=== PATIENT | male | born 1930 | race Caucasian/White ===

== ENCOUNTER 2016-08-06 15:31 | Inpatient (IN) | payer MEDICARE ==
[~2016-08-06] VITALS: Ht 172.7 cm; Wt 102.2 kg
[~2016-08-06 15:31] MED LIST: ALLO100T PO; AMLO10TA2 PO; ATOR40TA59 PO; CALC0.5C PO; CARV6.252 PO; CHOL2000 PO; CYAN10005 PO; DABI150C PO; FURO40TA4 PO; GLIM2TAB2 PO; HYDR-2678 PO; INSU100C4 SQ; INSU100I13 SQ; LISI40TA PO; OMEG10006 PO; PRED-220 PO; SEVE800T9 PO; SODI650T PO; SPIR25TA3 PO; TAMS0.4C2 PO; WARF5TAB PO; WARF7.5T PO; [UNRECOGNIZED DRUG - CODE] IJ; iron glycinate
[2016-08-06] MEDS ORDERED: PIP/TAZO PER PHARMACY MC PRN (16:15)
[2016-08-06] MEDS ORDERED: IV NORMAL SALINE 500ML BAG 500 ML IV ONE (16:15)
[2016-08-06] MEDS ORDERED: HYDROCODONE/APAP 5/325MG TABLET. PO ONE (16:15)
[2016-08-06] MEDS ORDERED: ASPIRIN 81 MG TAB.CHEW PO ONE (16:15)
[2016-08-06] MEDS ORDERED: PIPERACILLIN/TAZOBACTAM 2.25 GM in IV NORMAL SALINE 50ML 50 ML IV ONE (16:30)
--- NOTE | 2016-08-06 16:35 | PHYS DOC ---
Past Medical History Past Medical History: A-Fib, Diabetes-Type II, Hypertension, ME, Renal Failure , Other Additional Past Medical Histor: GOUT Past Surgical History: Coronary Bypass Surgery, Tonsillectomy, Other Additional Past Surgical Histo: LEFT HIP REPLACEMENT Alcohol Use: Rarely Drug Use: None Adult General Chief Complaint Chief Complaint: SHORTNESS OF BREATH HPI HPI Patient is a 85 year old male who presents with bilateral lower extremity redness and pain. Patient reports for over the past month he has been having increasing redness and pain in his lower legs. No clear inciting or mitigating factors. He also reports intermittent shortness of breath for the past couple weeks. He denies any chest discomfort. He says he has taken Tylenol PM for the pain with insufficient relief. Patient accompanied by a son who contributes to history. He says they saw Dr. Hester (creative services designer) a few days ago and was told he needed IV antibiotics for at least a few days. 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 Patient is taking some sort of oral antibiotic (cannot recall name) the past couple weeks as well. Review of Systems Review of Systems Constitutional: Denies fever or chills Eyes: Denies change in visual acuity or eye pain HENT: Denies nasal congestion or sore throat Respiratory: Intermittent shortness of breath Cardiovascular: Denies chest pain GI: Denies abdominal pain, nausea, vomiting, bloody stools or diarrhea : Denies dysuria or hematuria Musculoskeletal: BLE redness and pain; intermittent low back ache (none now) Neurologic: Denies headache, focal weakness or sensory changes Current Medications Current Medications Current Medications Medications (Trade) Dose Ordered Sig/Dirk Start Time Stop Time Status Last Admin Dose Admin Acetaminophen/ Hydrocodone Bitart (Lortab 5/325) 2 tab 1X ONCE 08/06/16 16:15 08/06/16 16:17 DC 08/06/16 17:32 2 TAB Aspirin (Children'S Aspirin) 324 mg 1X ONCE 08/06/16 16:15 08/06/16 16:17 DC 08/06/16 17:33 324 MG Piperacillin Sod/ Tazobactam Sod 1 each 1 each PRN DAILY PRN 08/06/16 16:15 UNV Piperacillin Sod/ Tazobactam Sod/ Sodium Chloride (Zosyn/Iv Sodium Chloride 0.9% 50ml) 50 ml @ 100 mls/hr 1X ONCE 08/06/16 16:30 08/06/16 16:59 DC 08/06/16 16:58 100 MLS/HR Sodium Chloride 500 ml @ 500 mls/hr 1X ONCE 08/06/16 16:15 08/06/16 17:14 DC 08/06/16 16:56 500 MLS/HR Vancomycin HCl (Vanco Per Pharmacy) 1 each PRN DAILY PRN 08/06/16 16:15 UNV Vancomycin HCl 2 gm/Sodium Chloride 500 ml @ 250 mls/hr 1X ONCE 08/06/16 17:00 08/06/16 18:59 DC 08/06/16 17:34 250 MLS/HR Allergies Allergies Allergies Coded Allergies Type Severity Reaction Last Updated Verified No Known Medication Allergies Allergy Unknown 01/14/15 Yes Physical Exam Physical Exam Constitutional: Well developed, well nourished, no acute distress, non-toxic appearance HENT: Normocephalic, atraumatic, bilateral external ears normal Eyes: EOMI, conjunctiva normal, no discharge Neck: Normal range of motion, no stridor Cardiovascular: Heart rate normal, regular rhythm, no murmur Lungs & Thorax: Bilateral breath sounds clear to auscultation Abdomen: Bowel sounds normal, soft, non-distended, no TTP; PD catheter in place Skin: Warm, dry, no erythema, no rash Extremities: B/l lower legs with erythema mostly confined to posterior aspect; not significantly warm to touch, but is generally; 1+ b/l DP pulse; motor function and sensation to light touch intact; scar on medial LLE well-healed Neurologic: Alert and oriented X 3, no gross deficits noted Current Patient Data Vital Signs Vital Signs Date Time Temp Pulse Resp B/P Pulse Ox O2 Delivery O2 Flow Rate FiO2 08/06/16 17:32 18 94 Room Air 08/06/16 17:17 78 117/58 08/06/16 15:33 97.4 97.4 Lab Values Laboratory Tests Test 08/06/16 16:50 White Blood Count 9.6x10^3/uL (4.0-11.0) Red Blood Count 3.14x10^6/uL (4.30-5.70) L Hemoglobin 9.9g/dL (13.0-17.5) L Hematocrit 30.3% (39.0-53.0) L Mean Corpuscular Volume 96fL (79-100) Mean Corpuscular Hemoglobin 32pg (25-35) Mean Corpuscular Hemoglobin Concent 33g/dL (31-37) Red Cell Distribution Width 15.0% (11.5-14.5) H Platelet Count 245x10^3/uL (140-400) Neutrophils (%) (Auto) 80% (31-73) H Lymphocytes (%) (Auto) 10% (24-48) L Monocytes (%) (Auto) 6% (0-9) Eosinophils (%) (Auto) 4% (0-3) H Basophils (%) (Auto) 1% (0-3) Neutrophils # (Auto) 7.6x10^3uL (1.8-7.7) Lymphocytes # (Auto) 1.0x10^3/uL (1.0-4.8) Monocytes # (Auto) 0.5x10^3/uL (0.0-1.1) Eosinophils # (Auto) 0.4x10^3/uL (0.0-0.7) Basophils # (Auto) 0.1x10^3/uL (0.0-0.2) Prothrombin Time 31.5SEC (11.7-14.0) H Prothrombin Time INR 3.3 (0.8-1.1) H Sodium Level 138mmol/L (136-145) Potassium Level 4.5mmol/L (3.5-5.1) Chloride Level 95mmol/L (98-107) L Carbon Dioxide Level 31mmol/L (21-32) Anion Gap 12 (6-14) Blood Urea Nitrogen 66mg/dL (8-26) H Creatinine 8.9mg/dL (0.7-1.3) H Estimated GFR (Cockcroft-Gault) 5.7 Glucose Level 456mg/dL (70-99) H Calcium Level 8.8mg/dL (8.5-10.1) Magnesium Level 2.2mg/dL (1.8-2.4) Troponin I Quantitative 0.065ng/mL (0.000-0.055) XC-Rve-O-Type Natriuretic Peptide 70799hw/mL (0-449) H Laboratory Tests 3/16/17 16:50 Laboratory Tests 08/06/16 16:50 EKG EKG EKG (my read): irregular rhythm (Afib), rate 70, LAD, LAFB, TWI lead I/aVL, no acute ST changes Radiology/Procedures Radiology/Procedures CXR: Impression No acute cardiopulmonary findings. Course & Med Decision Making Course & Med Decision Making Pertinent Labs and Imaging studies reviewed. (See chart for details) Patient is 85 year old male who presents with BLE erythema and pain, as well as SOB. 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 Regardless, we will treat for possible cellulitis with IV abx (vanc and zosyn as patient is diabetic). Will check EKG, CXR, labs as well due to c/o SOB. ASA ordered and oral pain meds ordered. EKG and imaging results as above. Labs notable for elevated BNP and minimally elevated troponin (similar to prior); this appears due to renal disease rather that cardiac disease so will not anticoagulate at this time nor will diurese the patient given no significant pulmonary edema on CXR or peripheral edema on exam. Discussed results with patient. Discussed with Dr. Irvin, will admit under his care for further evaluation and treatment. Dragon Disclaimer Dragon Disclaimer This electronic medical record was generated, in whole or in part, using a voice recognition dictation system. Departure Departure Impression: Primary Impression: Leg pain, bilateral Additional Impressions: Erythema of lower extremity SOB (shortness of breath) Disposition: ADMITTED INPATIENT Admitting Physician: Shiva Irvin Condition: STABLE Referrals: CAITLIN STERLING MD (PCP) Problem Qualifiers MANINDER LR MD Aug 06, 2016 16:35
--- NOTE | 2016-08-06 16:43 | RAD ---
Examination: 2 views of the chest History: History of shortness of breath, weakness Impression: 01/20/2016 Findings: Low lung volumes and technique accentuates heart size and pulmonary vasculature. Unchanged median sternotomy wires. There is no acute infiltrate or visualized pneumothorax identified Impression No acute cardiopulmonary findings.
--- NOTE | 2016-08-06 16:47 | EKG ---
[facility] [address] [place] [address] Test Date: 2016-08-06 Test Time: 16:36:40 Pat Name: HAKAN SCOTT Department: Room: Gender: Male Station Superintendent: : [id number] Requested By: MANINDER LR Order Number: [id number] Reading MD: Capri Rodriguez Measurements Intervals Burr Rate: 70 P: WV: QRS: -74 QRSD: 114 T: 126 QT: 426 QTc: 463 Interpretive Statements ATRIAL FIBRILLATION ABNORMAL LEFT AXIS DEVIATION QRS(T) CONTOUR ABNORMALITY CONSISTENT WITH ANTERIOR INFARCT AGE UNDETERMINED ST & T ABNORMALITY, CONSIDER HIGH LATERAL ISCHEMIA OR LEFT VENTRICULAR STRAIN Electronically Signed On 08-08-2016 20:05:52 CDT by Capri Rodriguez
[2016-08-06] MEDS ORDERED: VANCOMYCIN 2 GM in IV NORMAL SALINE 500ML BAG 500 ML IV ONE (17:00)
[2016-08-06 17:17] LABS: BASO # 0.1 x10^3/uL (0.0-0.2); BASO % 1 % (0-3); EOS % 4 % (0-3); HEMATOCRIT 30.3 % (39.0-53.0); HEMOGLOBIN 9.9 g/dL (13.0-17.5); LYMPH % 10 % (24-48); MEAN CORPUSCULAR HEMOGLOBIN 32 pg (25-35); MEAN CORPUSCULAR HGB CONC 33 g/dL (31-37); MEAN CORPUSCULAR VOLUME 96 fL (79-100); MONO % 6 % (0-9); NEUT % 80 % (31-73); PLATELET COUNT 245 x10^3/uL (140-400); RED BLOOD COUNT 3.14 x10^6/uL (4.30-5.70); WHITE BLOOD COUNT 9.6 x10^3/uL (4.0-11.0)
[2016-08-06 17:26] LABS: CALCIUM 8.8 mg/dL (8.5-10.1); CREATININE 8.9 mg/dL (0.7-1.3); GFR 5.7; INR 3.3 (0.8-1.1); MAGNESIUM 2.2 mg/dL (1.8-2.4); POTASSIUM 4.5 mmol/L (3.5-5.1); PROTHROMBIN TIME PATIENT 31.5 SEC (11.7-14.0)
[2016-08-06] MEDS ORDERED: MORPHINE SULFATE 4 MG/ML DISP.SYRIN. IV PRN (18:15)
[2016-08-06] MEDS ORDERED: INSULIN REGULAR 100 UNIT/ML 10ML VIAL. IV ONE (18:15)
[2016-08-06] MEDS ORDERED: DEXTROSE 50% 25 GM / 50ML DISP.SYRIN. IV PRN (18:15)
[2016-08-06] MEDS ORDERED: ACETAMINOPHEN 325 MG TABLET. PO PRN (18:15)
[2016-08-06] MEDS ORDERED: ONDANSETRON PF 4 MG/2 ML VIAL. IV PRN (18:15)
--- NOTE | 2016-08-06 18:27 | ACF ---
Admission Forms Criteria PAIN MANAGEMENT [facility] Clinical Indications for Admission to Inpatient Care (Place 'X' for any and all applicable criteria): Hospital admission is needed for appropriate care of the patient because of ANY ONE of the following are present (1)(2)(3)(4)(5): [X]I. Severe pain requiring acute inpatient management as indicated by ALL of the following (2)(5)(10): [ ]a) Continuous or frequent (eg, every 2 to 4 hours) parenteral analgesics required [A] [X]b) Necessity (ie, alternative approaches not effective) for analgesic regimen that can only be performed or initiated in inpatient setting [ ]II. Pain causing debilitation to the point of inability to function or be supported at any other level of care [ ]III. Severe side effects from pain medications as indicated by ANY ONE of the following (12)(13)(14)(15): [ ]a) Uncontrollable seizures [ ]b) Cardiac arrhythmias [ ]c) Severe volume depletion [ ]d) Vomiting that is uncontrollable at any other level of care [ ]e) Altered mental status (Audrey coma scale score less than 13) [ ]f) Obstipation with inadequate GI function to maintain nutrition [ ]g) Dehydration that is severe or persistent The original [employer] content created by [employer] has been revised. The portions of the content which have been revised are identified through the use of italic text or in bold, and [facility] has neither reviewed nor approved the modified material. All other unmodified content is copyright [employer]. Please see references footnoted in the original [employer] edition 2016 Admission Criteria Met?: Yes BENITA PLATT Aug 06, 2016 18:27
[2016-08-06] MEDS: VANCOMYCIN PER PHARMACY MC PRN (19:54)
[2016-08-06 19:55] VITALS: BP 118/47
[2016-08-06] MEDS ORDERED: CINA30TA PO (20:52)
[2016-08-06 23:00] VITALS: BP 90/44
[2016-08-06] MEDS: GABAPENTIN 100 MG CAPSULE. PO SCH (23:05)
[2016-08-06] MEDS: INSULIN DETEMIR 300 UNITS/3 ML INSULN.PEN. SQ SCH (23:14)
--- NOTE | 2016-08-07 00:28 | HP ---
ADMIT DATE: 08/06/2016 CHIEF COMPLAINT: Right lower extremity pain and scar tissue forming on the skin, shortness of breath. HISTORY OF PRESENT ILLNESS: The patient is a pleasant 85-year-old male who has end-stage renal disease. He is on peritoneal dialysis. He has been doing this for about 18 months. Over the past few weeks, he has been developing right lower extremity pain and skin is beginning to contract. 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 They called me from [facility], we have now transferred the patient to our facility for further evaluation. PAST MEDICAL HISTORY: Diabetes, hypertension, hyperlipidemia, AFib, gout, coronary artery bypass surgery, renal failure, end-stage renal disease on peritoneal dialysis, left hip replacement, tonsillectomy. ALLERGIES: None. FAMILY HISTORY: Hypertension. SOCIAL HISTORY: He does not drink, smoke or take drugs. MEDICATIONS: Reviewed, please refer to the MRAD. REVIEW OF SYSTEMS: GENERAL: No history of weight change, weakness or fevers. SKIN: The patient complains of right lower extremity pain and skin contracture with erythema. EYES: No blurred, double or loss of vision. NOSE AND THROAT: No history of nosebleeds, hoarseness or sore throat. HEART: No history of palpitations, chest pain or shortness of breath on exertion. LUNGS: Denies cough, hemoptysis, wheezing or shortness of breath. GASTROINTESTINAL: Denies changes in appetite, nausea, vomiting, diarrhea or constipation. GENITOURINARY: No history of frequency, urgency, hesitancy or nocturia. NEUROLOGIC: Denies history of numbness, tingling, tremor or weakness. PSYCHIATRIC: No history of panic, anxiety or depression. ENDOCRINE: No history of heat or cold intolerance, polyuria or polydipsia. EXTREMITIES: Denies muscle weakness, joint pain, pain on walking or stiffness. PHYSICAL EXAMINATION: VITAL SIGNS: Temperature afebrile, pulse 79, respirations 20, blood pressure 97/51. GENERAL: He is alert, cooperative. His daughter is present. HEART: Normal S1 and S2. LUNGS: Clear. ABDOMEN: Soft, positive bowel sounds. He does have distention. He states he has got a gallon of fluid in there that he has not drained yet from his peritoneal dialysis catheter. The catheter appears clean. ENDOCRINE: No thyromegaly. LYMPHATICS: No cervical nodes. HEMATOPOIETIC: No bruising. 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 LABORATORY DATA: Pending. ASSESSMENT AND PLAN: Possible calciphylaxis. The patient has been admitted. I have consulted Dr. Elizabeth Schreiber for a biopsy. We will continue his peritoneal dialysis and consult Dr. Tony, frequent labs, continue home medicines. PROGNOSIS: Guarded. CARLOTA BAZAN DO DR: CLINT/raghu JOB#: [id number] / [id number]
[2016-08-07] MEDS: ANTI-COAG MONITOR BY PHARMACY. MC PRN (01:59)
[2016-08-07 03:30] VITALS: BP 92/49
[2016-08-07 07:01] LABS: BASO # 0.1 x10^3/uL (0.0-0.2); BASO % 1 % (0-3); EOS % 6 % (0-3); HEMATOCRIT 26.2 % (39.0-53.0); HEMOGLOBIN 8.8 g/dL (13.0-17.5); LYMPH % 13 % (24-48); MEAN CORPUSCULAR HEMOGLOBIN 32 pg (25-35); MEAN CORPUSCULAR HGB CONC 34 g/dL (31-37); MEAN CORPUSCULAR VOLUME 96 fL (79-100); MONO % 8 % (0-9); NEUT % 73 % (31-73); PLATELET COUNT 204 x10^3/uL (140-400); RED BLOOD COUNT 2.74 x10^6/uL (4.30-5.70); RED CELL DISTRIBUTION WIDTH 14.9 % (11.5-14.5); WHITE BLOOD COUNT 7.9 x10^3/uL (4.0-11.0)
[2016-08-07 07:31] LABS: CALCIUM 8.1 mg/dL (8.5-10.1); CREATININE 9.1 mg/dL (0.7-1.3); GFR 5.5
[2016-08-07 07:59] VITALS: BP 105/48
[2016-08-07] MEDS: FERROUS SULFATE 325 MG TABLET PO SCH (08:00)
[2016-08-07] MEDS ORDERED: CARVEDILOL 6.25 MG TABLET PO SCH (08:00)
[2016-08-07] MEDS: HYDROCODONE/APAP 5/325MG TABLET. PO PRN ×4 (08:10→17:41)
[2016-08-07] MEDS: CINACALCET HCL 30 MG TABLET PO SCH (08:45)
[2016-08-07] MEDS: OMEGA-3 FATTY ACIDS/FISH OIL 1,000 MG CAPSULE. PO SCH (08:45)
[2016-08-07] MEDS: CYANOCOBALAMIN (VITAMIN B-12) 1,000 MCG TABLET. PO SCH (08:47)
[2016-08-07] MEDS: GLIMEPIRIDE 2 MG TABLET PO SCH (08:48)
[2016-08-07] MEDS: CHOLECALCIFEROL (VITAMIN D3) 1,000 UNIT TABLET PO SCH (08:49)
[2016-08-07] MEDS: ALLOPURINOL 100 MG TABLET. PO SCH ×2 (08:51→20:40)
[2016-08-07] MEDS: INSULIN ASPART 300 UNITS/3 ML INSULN.PEN SQ SCH ×6 (08:58→17:37)
[2016-08-07] MEDS ORDERED: APIXABAN 2.5 MG TABLET. PO SCH (09:00)
--- NOTE | 2016-08-07 09:52 | PDOC2 ---
NEAL NIELSEN MAINFRAME PROGRAMMER 08/07/16 0952: CARDIAC CONSULT DATE OF CONSULT Date of Consult DATE: 08/07/16 TIME: 09:39 REASON FOR CONSULT Reason for Consult: SOB Elevated troponin and BNP (dialysis patient) REFERRING PHYSICIAN Referring Physician: Dr. Mcdaniels SOURCE Source: Chart review, Patient HISTORY OF PRESENT ILLNESS HISTORY OF PRESENT ILLNESS This is an 89 yo male who presented with complaints of lower extremity swelling and erythema. Patient reports symptoms have been ongoing for the last month and a half. Developed skin darkening of bilateral calves and areas have become painful to touch. Pain has significantly worsened, limiting his ability to ambulate. Describes pain as "shooting" even when mild touch is applies to affected areas. ? calciphylaxis- biopsy planned. Patient additionally reports mild shortness of breath and orthopnea over the last couple of days. No recent change in diet or recent illness/fevers. Has been less active 2/2 pain. Denies any CP, palpitations, dizziness, diaphoresis, or nausea/vomiting. Reports compliance with medications. H/o CHF, AFIB, CAD s/p CABG (2004), HTN, HLP, and DM- follows closely with Dr. Elder at [facility]. Reports recent echocardiogram (less that 6 months ago) no recent stress test. Additional h/o ESRD on PD since February of 2015- is anuric. Has been complaint with PD. PAST MEDICAL HISTORY Past Medical History Cardiovascular: AFIB, CAD, CHF, HTN, Hyperlipidemia Pulmonary: Other (sleep apnea) CENTRAL NERVOUS SYSTEM: Peripheral neuropathy GI: GERD Heme/Onc: Anemia NOS, Cancer (skin) Hepatobiliary: No pertinent hx Psych: No pertinent hx Musculoskeletal: Osteoarthritis Rheumatologic: Gout Infectious disease: No pertinent hx ENT: No pertinent hx Renal/: ESRD (on PD), Benign prostatic enlarg. Endocrine: Diabetes, hyperparathyroidism Dermatology: No pertinent hx PAST SURGICAL HISTORY Past Surgical History Appendectomy, CABG (2004), Cataract Removal, Tonsillectomy, Other (left hip sx ) FAMILY HISTORY Family History Cancer, Diabetes, Hypertension, Stroke SOCIAL HISTORY Smoke: No ALCOHOL: none Drugs: None Lives: with Family CURRENT MEDICATIONS CURRENT MEDICATIONS Current Medications Medications (Trade) Dose Ordered Sig/Dirk Route PRN Reason Start Time Stop Time Status Last Admin Dose Admin Aspirin (Children'S Aspirin) 324 mg 1X ONCE PO 08/06/16 16:15 08/06/16 16:17 DC 08/06/16 17:33 Acetaminophen/ Hydrocodone Bitart (Lortab 5/325) 2 tab 1X ONCE PO 08/06/16 16:15 08/06/16 16:17 DC 08/06/16 17:32 Vancomycin HCl 1 each 1 each PRN DAILY PRN MC SEE COMMENTS 08/06/16 16:15 08/06/16 19:54 Sodium Chloride 500 ml @ 500 mls/hr 1X ONCE IV 08/06/16 16:15 08/06/16 17:14 DC 08/06/16 16:56 Vancomycin HCl 2 gm/Sodium Chloride 500 ml @ 250 mls/hr 1X ONCE IV 08/06/16 17:00 08/06/16 18:59 DC 08/06/16 17:34 Piperacillin Sod/ Tazobactam Sod/ Sodium Chloride (Zosyn/Iv Sodium Chloride 0.9% 50ml) 50 ml @ 100 mls/hr 1X ONCE IV 08/06/16 16:30 08/06/16 16:59 DC 08/06/16 16:58 Acetaminophen (Tylenol) 650 mg PRN Q4HRS PRN PO FEVER 08/06/16 18:15 08/07/16 18:14 08/07/16 04:02 Insulin Human Regular (Novolin R Vial) 10 unit 1X ONCE IV 08/06/16 18:15 08/06/16 18:29 DC 08/06/16 18:40 Insulin Aspart (Novolog) 0-7 UNITS TIDWMEALS SQ 08/07/16 08:00 08/07/16 09:00 Allopurinol (Zyloprim) 50 mg BID PO 08/07/16 09:00 08/07/16 08:51 Cinacalcet (Sensipar) 30 mg DAILY PO 08/07/16 09:00 08/07/16 08:45 Cyanocobalamin (Vitamin B-12) 5,000 mcg DAILY PO 08/07/16 09:00 08/07/16 08:47 Glimepiride (Amaryl) 4 mg DAILY PO 08/07/16 09:00 08/07/16 08:48 Fish Oil (Fish Oil) 1,000 mg DAILY PO 08/07/16 09:00 08/07/16 08:45 Vitamin D (Vitamin D3) 4,000 unit DAILY PO 08/07/16 09:00 08/07/16 08:49 Insulin Aspart (Novolog) 8 units TIDBFRMEAL SQ 08/07/16 07:30 08/07/16 08:58 Insulin Detemir (Levemir) 50 units QHS SQ 08/06/16 23:00 08/06/16 23:14 Apixaban (Eliquis) 2.5 mg BID PO 08/07/16 09:00 08/07/16 08:51 Info (Anti-Coagulation Monitoring By Pharmacy) 1 each PRN DAILY PRN MC SEE COMMENTS 08/06/16 22:15 08/07/16 01:59 Gabapentin (Neurontin) 100 mg QHS PO 08/06/16 23:00 08/06/16 23:05 ALLERGIES ALLERGIES: Coded Allergies: No Known Medication Allergies (Verified Allergy, Unknown, 01/14/15) ROS Review of System 14 point ROS conducted with pertinent positives noted above in HPI. PHYSICAL EXAM General: Alert, Oriented X3, Cooperative, No acute distress HEENT: Mucous membr. moist/pink Lungs: Clear to auscultation, Other (diminished bases ) Heart: Normal S1, Normal S2, Other (IRR; tele AFIB) Abdomen: Soft, No tenderness Extremities: Normal pulses, Other (trace LE edema ) Skin: Other (erythema with central darkening to bilateral calf and surrounding petechiae) Neuro: Normal speech, Sensation intact Psych/Mental Status: Mental status NL, Mood NL MUSCULOSKELETAL: Osteoarthritic changes both hands VITALS VITALS Vital Signs Date Time Temp Pulse Resp B/P Pulse Ox O2 Delivery O2 Flow Rate FiO2 08/07/16 07:59 97.9 64 18 105/48 95 Room Air 97.9 LABS Lab: Laboratory Tests Test 08/06/16 16:50 08/06/16 20:38 08/07/16 01:00 08/07/16 06:51 White Blood Count 9.6x10^3/uL (4.0-11.0) 7.9x10^3/uL (4.0-11.0) Red Blood Count 3.14x10^6/uL (4.30-5.70) 2.74x10^6/uL (4.30-5.70) Hemoglobin 9.9g/dL (13.0-17.5) 8.8g/dL (13.0-17.5) Hematocrit 30.3% (39.0-53.0) 26.2% (39.0-53.0) Mean Corpuscular Volume 96fL (79-100) 96fL (79-100) Mean Corpuscular Hemoglobin 32pg (25-35) 32pg (25-35) Mean Corpuscular Hemoglobin Concent 33g/dL (31-37) 34g/dL (31-37) Red Cell Distribution Width 15.0% (11.5-14.5) 14.9% (11.5-14.5) Platelet Count 245x10^3/uL (140-400) 204x10^3/uL (140-400) Neutrophils (%) (Auto) 80% (31-73) 73% (31-73) Lymphocytes (%) (Auto) 10% (24-48) 13% (24-48) Monocytes (%) (Auto) 6% (0-9) 8% (0-9) Eosinophils (%) (Auto) 4% (0-3) 6% (0-3) Basophils (%) (Auto) 1% (0-3) 1% (0-3) Neutrophils # (Auto) 7.6x10^3uL (1.8-7.7) 5.8x10^3uL (1.8-7.7) Lymphocytes # (Auto) 1.0x10^3/uL (1.0-4.8) 1.0x10^3/uL (1.0-4.8) Monocytes # (Auto) 0.5x10^3/uL (0.0-1.1) 0.6x10^3/uL (0.0-1.1) Eosinophils # (Auto) 0.4x10^3/uL (0.0-0.7) 0.5x10^3/uL (0.0-0.7) Basophils # (Auto) 0.1x10^3/uL (0.0-0.2) 0.1x10^3/uL (0.0-0.2) Prothrombin Time 31.5SEC (11.7-14.0) Prothromb Time International Ratio 3.3 (0.8-1.1) Sodium Level 138mmol/L (136-145) 138mmol/L (136-145) Potassium Level 4.5mmol/L (3.5-5.1) 4.0mmol/L (3.5-5.1) Chloride Level 95mmol/L (98-107) 100mmol/L (98-107) Carbon Dioxide Level 31mmol/L (21-32) 26mmol/L (21-32) Anion Gap 12 (6-14) 12 (6-14) Blood Urea Nitrogen 66mg/dL (8-26) 70mg/dL (8-26) Creatinine 8.9mg/dL (0.7-1.3) 9.1mg/dL (0.7-1.3) Estimated GFR (Cockcroft-Gault) 5.7 5.5 Glucose Level 456mg/dL (70-99) 227mg/dL (70-99) Calcium Level 8.8mg/dL (8.5-10.1) 8.1mg/dL (8.5-10.1) Magnesium Level 2.2mg/dL (1.8-2.4) Troponin I Quantitative 0.065ng/mL (0.000-0.055) 0.065ng/mL (0.000-0.055) 0.067ng/mL (0.000-0.055) TW-Zhf-[id number]-Type Natriuretic Peptide 60076cq/mL (0-449) Glucose (Fingerstick) 340mg/dL (70-99) Test 08/07/16 07:48 Glucose (Fingerstick) 219mg/dL (70-99) ECHOCARDIOGRAM ECHOCARDIOGRAM <Conclusion> Left ventricle systolic function is moderately impaired. The Ejection Fraction is 40-45%. There is hypokinesis in the basal to mid inferior, inferolateral and inferoseptal bajwa. There is mild global hypokinesis of the left ventricle. Technically difficult study DATE: 12/13/15 3742 ASSESSMENT/PLAN ASSESSMENT/PLAN 1. Elevated troponin 2. Mild acute on chronic systolic HF 3. H/o CAD 4. Chronic AFIB 5. Hypertension 6. Hyperlipidemia 7. Diabetes, II, uncontrolled 8. ESRD on PD 9. ? cellulitis versus calciphylaxis- Bx planned Recommendations Obtain cardiac records from Dr. Elder. Anuric- adjusting dialysate for increase UF per nephrology Mild troponin elevation likely type II, demand ischemia related to CRF Chronic AFIB with rate control- on Eliquis for stroke prophylaxis Decrease Coreg to 3.125mg Supportive care from CV perspective. Problems: REINALDO DODSON MD 08/07/16 1649: CARDIAC CONSULT ALLERGIES ALLERGIES: Coded Allergies: No Known Medication Allergies (Verified Allergy, Unknown, 01/14/15) ASSESSMENT/PLAN ASSESSMENT/PLAN Pt. seen and examined. Agree with above [facility] [employer] MICA note. 85 y.o male presenting mostly for lower ext edema. No real dyspnea. 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 Ok to hold anticoagulation prn. Echo EF wnl Supportive care. Will follow peripherally Thanks for consult. Low risk for biopsy. Problems: NEAL NIELSEN APRN Aug 07, 2016 09:52 REINALDO DODSON MD Aug 07, 2016 16:49
[2016-08-07] MEDS: PIPERACILLIN/TAZOBACTAM 2.25 GM in IV NORMAL SALINE 50ML 50 ML IV SCH ×2 (10:13→20:41)
[2016-08-07 10:41] VITALS: BP 98/44
--- NOTE | 2016-08-07 11:43 | PDOC2 ---
CONSULT Date of Consult Date of Consult DATE: 08/07/16 TIME: 11:38 Reason for Consult Reason for Consult: ESRD Referring Physician Referring Physician: HORTENSIA Identification/Chief Complaint Chief Complaint LE PAIN Source Source: Chart review, Patient History of Present Illness Reason for Visit: THIS IS AN 85 YR OLD ADMITTED WITH BILATERAL CALF AREA REDNESS AND PAIN. IT IS CONCERNING FOR CELLULITIS BUT ALSO CONCERNING FOR CALCIPHYLAXIS. HE HAS ESRD AND IS ON OP PD IN [place]. HE ALSO STATES THAT HE FEELS SOME SOB. CXRAY WAS WNL. LABS ARE C/W ESRD Past Medical History Cardiovascular: AFIB, CAD, HTN, [place], Hyperlipidemia Pulmonary: No pertinent hx CENTRAL NERVOUS SYSTEM: Other GI: No pertinent hx Heme/Onc: Anemia NOS Hepatobiliary: No pertinent hx Psych: No pertinent hx Musculoskeletal: Osteoarthritis Rheumatologic: No pertinent hx Infectious disease: No pertinent hx Renal/: Chronic renal failure Endocrine: Diabetes, Hyperparathyroidism Past Surgical History Past Surgical History: CABG, Cataract Removal, Total hip replacement, Tonsillectomy Family History Family History: Cancer, Diabetes, Hypertension, Stroke Social History ALCOHOL: none Drugs: None Lives: with Family Domestic Violence: Neg Current Problem List Problem List Problems Medical Problems: (1) Erythema of lower extremity Status: Acute (2) Leg pain, bilateral Status: Acute (3) SOB (shortness of breath) Status: Acute Current Medications Current Medications Current Medications Aspirin (Children'S Aspirin) 324 mg 1X ONCE PO Last administered on 08/06/16 17:33; Start 08/06/16 at 16:15; Stop 08/06/16 at 16:17; Status DC Acetaminophen/ Hydrocodone Bitart (Lortab 5/325) 2 tab 1X ONCE PO Last administered on 08/06/16 17:32; Start 08/06/16 at 16:15; Stop 08/06/16 at 16:17 ; Status DC Vancomycin HCl (Vanco Per Pharmacy) 1 each PRN DAILY PRN MC SEE COMMENTS Last administered on 08/06/16 19:54; Start 08/06/16 at 16:15 Piperacillin Sod/ Tazobactam Sod 1 each 1 each PRN DAILY PRN MC SEE COMMENTS; Start 08/06/16 at 16:15 Sodium Chloride 500 ml @ 500 mls/hr 1X ONCE IV Last administered on 16:56; Start 08/06/16 at 16:15; Stop 08/06/16 at 17:14; Status DC Vancomycin HCl 2 gm/Sodium Chloride 500 ml @ 250 mls/hr 1X ONCE IV Last administered on 08/06/16 17:34; Start 08/06/16 at 17:00; Stop 08/06/16 at 18:59 ; Status DC Piperacillin Sod/ Tazobactam Sod/ Sodium Chloride (Zosyn/Iv Sodium Chloride 0.9 % 50ml) 50 ml @ 100 mls/hr 1X ONCE IV Last administered on 08/06/16 16:58; Start 08/06/16 at 16:30; Stop 08/06/16 at 16:59; Status DC Ondansetron HCl (Zofran) 4 mg PRN Q8HRS PRN IV NAUSEA/VOMITING; Start 08/06/16 at 18:15; Stop 08/07/16 at 18:14 Morphine Sulfate 4 mg PRN Q2HR PRN IV PAIN; Start 08/06/16 at 18:15; Stop 08/07 at 18:14 Acetaminophen (Tylenol) 650 mg PRN Q4HRS PRN PO FEVER Last administered on 08/07 04:02; Start 08/06/16 at 18:15; Stop 08/07/16 at 18:14 Insulin Human Regular (Novolin R Vial) 10 unit 1X ONCE IV Last administered on 08/06/16 18:40; Start 08/06/16 at 18:15; Stop 08/06/16 at 18:29; Status DC Insulin Aspart (Novolog) 0-7 UNITS TIDWMEALS SQ Last administered on 08/07/16 09:00; Start 08/07/16 at 08:00 Dextrose 12.5 gm 12.5 gm PRN Q15MIN PRN IV SEE COMMENTS; Start 08/06/16 at 18: 15 Piperacillin Sod/ Tazobactam Sod/ Sodium Chloride (Zosyn/Iv Sodium Chloride 0.9 % 50ml) 50 ml @ 100 mls/hr Q12HR IV Last administered on 08/07/16 10:13; Start 08/07/16 at 09:00 Vancomycin HCl 1 each 1X ONCE MC ; Start 08/08/16 at 15:00; Stop 08/08/16 at 15 :01 Allopurinol (Zyloprim) 50 mg BID PO Last administered on 08/07/16 08:51; Start 08/07/16 at 09:00 Atorvastatin Calcium (Lipitor) 40 mg QHS PO ; Start 08/07/16 at 21:00 Carvedilol (Coreg) 6.26 mg BIDWMEALS PO ; Start 08/07/16 at 08:00 Cinacalcet (Sensipar) 30 mg DAILY PO Last administered on 08/07/16 08:45; Start 08/07/16 at 09:00 Cyanocobalamin (Vitamin B-12) 5,000 mcg DAILY PO Last administered on 08:47; Start 08/07/16 at 09:00 Glimepiride (Amaryl) 4 mg DAILY PO Last administered on 08/07/16 08:48; Start 08/07/16 at 09:00 Fish Oil (Fish Oil) 1,000 mg DAILY PO Last administered on 08/07/16 08:45; Start 08/07/16 at 09:00 Vitamin D (Vitamin D3) 4,000 unit DAILY PO Last administered on 08/07/16 08:49 ; Start 08/07/16 at 09:00 Insulin Aspart (Novolog) 8 units TIDBFRMEAL SQ Last administered on 08/07/16 08:58; Start 08/07/16 at 07:30 Insulin Detemir (Levemir) 50 units QHS SQ Last administered on 08/06/16 23:14 ; Start 08/06/16 at 23:00 Ferrous Sulfate (Feosol) 325 mg DAILYWBKFT PO ; Start 08/07/16 at 08:00 Apixaban (Eliquis) 2.5 mg BID PO Last administered on 08/07/16 08:51; Start at 09:00 Info (Anti-Coagulation Monitoring By Pharmacy) 1 each PRN DAILY PRN MC SEE COMMENTS Last administered on 08/07/16 01:59; Start 08/06/16 at 22:15 Gabapentin (Neurontin) 100 mg QHS PO Last administered on 08/06/16 23:05; Start 08/06/16 at 23:00 Acetaminophen/ Hydrocodone Bitart (Lortab 5/325) 2 tab PRN Q4HRS PRN PO PAIN; Start 08/07/16 at 07:45 Active Scripts Active Reported Sensipar (Cinacalcet Hcl) 30 Mg Tablet 1 Tab PO DAILY Allopurinol 100 Mg Tablet 50 Mg PO BID Glimepiride 2 Mg Tablet 4 Mg PO DAILY Procrit (Epoetin Lasha) 2,000 Unit/1 Ml Vial 0 IJ [id number] Novolog (Insulin Aspart) 100 Unit/1 Ml Cartridge 8 Unit SQ TIDAC Lantus Solostar (Insulin Glargine,Hum.rec.anlog) 100 Unit/1 Ml Insuln.pen 50 Unit SQ QHS Atorvastatin Calcium 40 Mg Tablet 1 Tab PO DAILY Pv Fish Oil 1,000 Mg Softgel ([place]-3 Fatty Acids/Vitamin E) 1,000 Mg Capsule 1 Cap PO DAILY [iron glycinate] 28 Mg DAILY Vitamin B-12 (Cyanocobalamin (Vitamin B-12)) 1,000 Mcg Tablet 5,000 Mcg PO DAILY Vitamin D (Cholecalciferol (Vitamin D3)) 2,000 Unit Capsule 4,000 Unit PO DAILY Carvedilol 6.25 Mg Tablet 1 Tab PO BID Allergies Allergies: Coded Allergies: No Known Medication Allergies (Verified Allergy, Unknown, 01/14/15) ROS General: YES: Appetite, Fatigue PSYCHOLOGICAL ROS: YES: Anxiety Eyes: Yes Decreased vision HEENT: YES: Heacaches Genitourinary: YES Other (OLIGURIA) Musculoskeletal: Yes Muscular Weakness, Yes Other (LE PAIN) Neurological: Yes Weakness Skin: Yes Dry Skin Physical Exam General: Alert, Oriented X3, Cooperative, No acute distress HEENT: Atraumatic, PERRLA Lungs: Clear to auscultation, Normal air movement Heart: Regular rate, Normal S1, Normal S2 Abdomen: Normal bowel sounds, No tenderness Neuro: Normal speech, Cranial nerves 3-12 NL Psych/Mental Status: Mental status NL, Mood NL MUSCULOSKELETAL: No deformity Vitals VITALS Vital Signs Date Time Temp Pulse Resp B/P Pulse Ox O2 Delivery O2 Flow Rate FiO2 08/07/16 10:41 97.5 65 19 98/44 96 Room Air 97.5 Labs Labs Laboratory Tests Test 08/06/16 16:50 08/06/16 20:38 08/07/16 01:00 08/07/16 06:51 White Blood Count 9.6x10^3/uL (4.0-11.0) 7.9x10^3/uL (4.0-11.0) Red Blood Count 3.14x10^6/uL (4.30-5.70) 2.74x10^6/uL (4.30-5.70) Hemoglobin 9.9g/dL (13.0-17.5) 8.8g/dL (13.0-17.5) Hematocrit 30.3% (39.0-53.0) 26.2% (39.0-53.0) Mean Corpuscular Volume 96fL (79-100) 96fL (79-100) Mean Corpuscular Hemoglobin 32pg (25-35) 32pg (25-35) Mean Corpuscular Hemoglobin Concent 33g/dL (31-37) 34g/dL (31-37) Red Cell Distribution Width 15.0% (11.5-14.5) 14.9% (11.5-14.5) Platelet Count 245x10^3/uL (140-400) 204x10^3/uL (140-400) Neutrophils (%) (Auto) 80% (31-73) 73% (31-73) Lymphocytes (%) (Auto) 10% (24-48) 13% (24-48) Monocytes (%) (Auto) 6% (0-9) 8% (0-9) Eosinophils (%) (Auto) 4% (0-3) 6% (0-3) Basophils (%) (Auto) 1% (0-3) 1% (0-3) Neutrophils # (Auto) 7.6x10^3uL (1.8-7.7) 5.8x10^3uL (1.8-7.7) Lymphocytes # (Auto) 1.0x10^3/uL (1.0-4.8) 1.0x10^3/uL (1.0-4.8) Monocytes # (Auto) 0.5x10^3/uL (0.0-1.1) 0.6x10^3/uL (0.0-1.1) Eosinophils # (Auto) 0.4x10^3/uL (0.0-0.7) 0.5x10^3/uL (0.0-0.7) Basophils # (Auto) 0.1x10^3/uL (0.0-0.2) 0.1x10^3/uL (0.0-0.2) Prothrombin Time 31.5SEC (11.7-14.0) Prothromb Time International Ratio 3.3 (0.8-1.1) Sodium Level 138mmol/L (136-145) 138mmol/L (136-145) Potassium Level 4.5mmol/L (3.5-5.1) 4.0mmol/L (3.5-5.1) Chloride Level 95mmol/L (98-107) 100mmol/L (98-107) Carbon Dioxide Level 31mmol/L (21-32) 26mmol/L (21-32) Anion Gap 12 (6-14) 12 (6-14) Blood Urea Nitrogen 66mg/dL (8-26) 70mg/dL (8-26) Creatinine 8.9mg/dL (0.7-1.3) 9.1mg/dL (0.7-1.3) Estimated GFR (Cockcroft-Gault) 5.7 5.5 Glucose Level 456mg/dL (70-99) 227mg/dL (70-99) Calcium Level 8.8mg/dL (8.5-10.1) 8.1mg/dL (8.5-10.1) Magnesium Level 2.2mg/dL (1.8-2.4) Troponin I Quantitative 0.065ng/mL (0.000-0.055) 0.065ng/mL (0.000-0.055) 0.067ng/mL (0.000-0.055) VQ-Ufl-F-Type Natriuretic Peptide 61257ud/mL (0-449) Glucose (Fingerstick) 340mg/dL (70-99) Test 08/07/16 07:48 08/07/16 11:25 Glucose (Fingerstick) 219mg/dL (70-99) 160mg/dL (70-99) Laboratory Tests Test 08/06/16 16:50 08/06/16 20:38 08/07/16 01:00 08/07/16 06:51 White Blood Count 9.6x10^3/uL (4.0-11.0) 7.9x10^3/uL (4.0-11.0) Red Blood Count 3.14x10^6/uL (4.30-5.70) 2.74x10^6/uL (4.30-5.70) Hemoglobin 9.9g/dL (13.0-17.5) 8.8g/dL (13.0-17.5) Hematocrit 30.3% (39.0-53.0) 26.2% (39.0-53.0) Mean Corpuscular Volume 96fL (79-100) 96fL (79-100) Mean Corpuscular Hemoglobin 32pg (25-35) 32pg (25-35) Mean Corpuscular Hemoglobin Concent 33g/dL (31-37) 34g/dL (31-37) Red Cell Distribution Width 15.0% (11.5-14.5) 14.9% (11.5-14.5) Platelet Count 245x10^3/uL (140-400) 204x10^3/uL (140-400) Neutrophils (%) (Auto) 80% (31-73) 73% (31-73) Lymphocytes (%) (Auto) 10% (24-48) 13% (24-48) Monocytes (%) (Auto) 6% (0-9) 8% (0-9) Eosinophils (%) (Auto) 4% (0-3) 6% (0-3) Basophils (%) (Auto) 1% (0-3) 1% (0-3) Neutrophils # (Auto) 7.6x10^3uL (1.8-7.7) 5.8x10^3uL (1.8-7.7) Lymphocytes # (Auto) 1.0x10^3/uL (1.0-4.8) 1.0x10^3/uL (1.0-4.8) Monocytes # (Auto) 0.5x10^3/uL (0.0-1.1) 0.6x10^3/uL (0.0-1.1) Eosinophils # (Auto) 0.4x10^3/uL (0.0-0.7) 0.5x10^3/uL (0.0-0.7) Basophils # (Auto) 0.1x10^3/uL (0.0-0.2) 0.1x10^3/uL (0.0-0.2) Prothrombin Time 31.5SEC (11.7-14.0) Prothromb Time International Ratio 3.3 (0.8-1.1) Sodium Level 138mmol/L (136-145) 138mmol/L (136-145) Potassium Level 4.5mmol/L (3.5-5.1) 4.0mmol/L (3.5-5.1) Chloride Level 95mmol/L (98-107) 100mmol/L (98-107) Carbon Dioxide Level 31mmol/L (21-32) 26mmol/L (21-32) Anion Gap 12 (6-14) 12 (6-14) Blood Urea Nitrogen 66mg/dL (8-26) 70mg/dL (8-26) Creatinine 8.9mg/dL (0.7-1.3) 9.1mg/dL (0.7-1.3) Estimated GFR (Cockcroft-Gault) 5.7 5.5 Glucose Level 456mg/dL (70-99) 227mg/dL (70-99) Calcium Level 8.8mg/dL (8.5-10.1) 8.1mg/dL (8.5-10.1) Magnesium Level 2.2mg/dL (1.8-2.4) Troponin I Quantitative 0.065ng/mL (0.000-0.055) 0.065ng/mL (0.000-0.055) 0.067ng/mL (0.000-0.055) NV-Zog-C-Type Natriuretic Peptide 93637sf/mL (0-449) Glucose (Fingerstick) 340mg/dL (70-99) Test 08/07/16 07:48 08/07/16 11:25 Glucose (Fingerstick) 219mg/dL (70-99) 160mg/dL (70-99) Assessment/Plan Assessment/Plan IMP BILATERAL LE CALF AREA CELLULITIS 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
--- NOTE | 2016-08-07 12:52 | PDOC ---
PROGRESS NOTES Chief Complaint Chief Complaint cc: BLE pain A/P 1. ? 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 Avoid IV narcotics, d/w family at bedside, 2. Chronic systolic HF: stable. 3. H/o CAD 4. Chronic AFIB 5. Hypertension: Low BP, Decreasing dose - coreg. 6. Hyperlipidemia 7. Diabetes, II, uncontrolled: SSI, 8. 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 Mild elevation of troponins: likely due to ESRD, monitor, cardiology bas been following, obtain records from [facility]. Vitals Vitals Vital Signs Date Time Temp Pulse Resp B/P Pulse Ox O2 Delivery O2 Flow Rate FiO2 08/07/16 11:52 18 96 Room Air 08/07/16 10:41 97.5 65 98/44 97.5 Physical Exam General: Alert, Oriented X3, Cooperative, No acute distress Heart: Normal S1, Normal S2, Other (IRR; tele AFIB) Lungs: Clear Abdomen: Soft, No tenderness Extremities: Normal pulses, Other (trace LE edema ) Skin: Other (erythema with central darkening to bilateral calf and surrounding petechiae) Labs LABS Laboratory Tests Test 08/06/16 16:50 08/06/16 20:38 08/07/16 01:00 08/07/16 06:51 White Blood Count 9.6x10^3/uL (4.0-11.0) 7.9x10^3/uL (4.0-11.0) Red Blood Count 3.14x10^6/uL (4.30-5.70) 2.74x10^6/uL (4.30-5.70) Hemoglobin 9.9g/dL (13.0-17.5) 8.8g/dL (13.0-17.5) Hematocrit 30.3% (39.0-53.0) 26.2% (39.0-53.0) Mean Corpuscular Volume 96fL (79-100) 96fL (79-100) Mean Corpuscular Hemoglobin 32pg (25-35) 32pg (25-35) Mean Corpuscular Hemoglobin Concent 33g/dL (31-37) 34g/dL (31-37) Red Cell Distribution Width 15.0% (11.5-14.5) 14.9% (11.5-14.5) Platelet Count 245x10^3/uL (140-400) 204x10^3/uL (140-400) Neutrophils (%) (Auto) 80% (31-73) 73% (31-73) Lymphocytes (%) (Auto) 10% (24-48) 13% (24-48) Monocytes (%) (Auto) 6% (0-9) 8% (0-9) Eosinophils (%) (Auto) 4% (0-3) 6% (0-3) Basophils (%) (Auto) 1% (0-3) 1% (0-3) Neutrophils # (Auto) 7.6x10^3uL (1.8-7.7) 5.8x10^3uL (1.8-7.7) Lymphocytes # (Auto) 1.0x10^3/uL (1.0-4.8) 1.0x10^3/uL (1.0-4.8) Monocytes # (Auto) 0.5x10^3/uL (0.0-1.1) 0.6x10^3/uL (0.0-1.1) Eosinophils # (Auto) 0.4x10^3/uL (0.0-0.7) 0.5x10^3/uL (0.0-0.7) Basophils # (Auto) 0.1x10^3/uL (0.0-0.2) 0.1x10^3/uL (0.0-0.2) Prothrombin Time 31.5SEC (11.7-14.0) Prothromb Time International Ratio 3.3 (0.8-1.1) Sodium Level 138mmol/L (136-145) 138mmol/L (136-145) Potassium Level 4.5mmol/L (3.5-5.1) 4.0mmol/L (3.5-5.1) Chloride Level 95mmol/L (98-107) 100mmol/L (98-107) Carbon Dioxide Level 31mmol/L (21-32) 26mmol/L (21-32) Anion Gap 12 (6-14) 12 (6-14) Blood Urea Nitrogen 66mg/dL (8-26) 70mg/dL (8-26) Creatinine 8.9mg/dL (0.7-1.3) 9.1mg/dL (0.7-1.3) Estimated GFR (Cockcroft-Gault) 5.7 5.5 Glucose Level 456mg/dL (70-99) 227mg/dL (70-99) Calcium Level 8.8mg/dL (8.5-10.1) 8.1mg/dL (8.5-10.1) Magnesium Level 2.2mg/dL (1.8-2.4) Troponin I Quantitative 0.065ng/mL (0.000-0.055) 0.065ng/mL (0.000-0.055) 0.067ng/mL (0.000-0.055) YR-Iap-W-Type Natriuretic Peptide 45704jl/mL (0-449) Glucose (Fingerstick) 340mg/dL (70-99) Test 08/07/16 07:48 08/07/16 11:25 Glucose (Fingerstick) 219mg/dL (70-99) 160mg/dL (70-99) Assessment and Plan Assessmemt and Plan Problems Medical Problems: (1) Erythema of lower extremity Status: Acute (2) Leg pain, bilateral Status: Acute (3) SOB (shortness of breath) Status: Acute Problems: Comment Review of Relevant I have reviewed the following items robert (where applicable) has been applied. Labs Laboratory Tests Test 08/06/16 16:50 08/06/16 20:38 08/07/16 01:00 08/07/16 06:51 White Blood Count 9.6x10^3/uL (4.0-11.0) 7.9x10^3/uL (4.0-11.0) Red Blood Count 3.14x10^6/uL (4.30-5.70) 2.74x10^6/uL (4.30-5.70) Hemoglobin 9.9g/dL (13.0-17.5) 8.8g/dL (13.0-17.5) Hematocrit 30.3% (39.0-53.0) 26.2% (39.0-53.0) Mean Corpuscular Volume 96fL (79-100) 96fL (79-100) Mean Corpuscular Hemoglobin 32pg (25-35) 32pg (25-35) Mean Corpuscular Hemoglobin Concent 33g/dL (31-37) 34g/dL (31-37) Red Cell Distribution Width 15.0% (11.5-14.5) 14.9% (11.5-14.5) Platelet Count 245x10^3/uL (140-400) 204x10^3/uL (140-400) Neutrophils (%) (Auto) 80% (31-73) 73% (31-73) Lymphocytes (%) (Auto) 10% (24-48) 13% (24-48) Monocytes (%) (Auto) 6% (0-9) 8% (0-9) Eosinophils (%) (Auto) 4% (0-3) 6% (0-3) Basophils (%) (Auto) 1% (0-3) 1% (0-3) Neutrophils # (Auto) 7.6x10^3uL (1.8-7.7) 5.8x10^3uL (1.8-7.7) Lymphocytes # (Auto) 1.0x10^3/uL (1.0-4.8) 1.0x10^3/uL (1.0-4.8) Monocytes # (Auto) 0.5x10^3/uL (0.0-1.1) 0.6x10^3/uL (0.0-1.1) Eosinophils # (Auto) 0.4x10^3/uL (0.0-0.7) 0.5x10^3/uL (0.0-0.7) Basophils # (Auto) 0.1x10^3/uL (0.0-0.2) 0.1x10^3/uL (0.0-0.2) Prothrombin Time 31.5SEC (11.7-14.0) Prothromb Time International Ratio 3.3 (0.8-1.1) Sodium Level 138mmol/L (136-145) 138mmol/L (136-145) Potassium Level 4.5mmol/L (3.5-5.1) 4.0mmol/L (3.5-5.1) Chloride Level 95mmol/L (98-107) 100mmol/L (98-107) Carbon Dioxide Level 31mmol/L (21-32) 26mmol/L (21-32) Anion Gap 12 (6-14) 12 (6-14) Blood Urea Nitrogen 66mg/dL (8-26) 70mg/dL (8-26) Creatinine 8.9mg/dL (0.7-1.3) 9.1mg/dL (0.7-1.3) Estimated GFR (Cockcroft-Gault) 5.7 5.5 Glucose Level 456mg/dL (70-99) 227mg/dL (70-99) Calcium Level 8.8mg/dL (8.5-10.1) 8.1mg/dL (8.5-10.1) Magnesium Level 2.2mg/dL (1.8-2.4) Troponin I Quantitative 0.065ng/mL (0.000-0.055) 0.065ng/mL (0.000-0.055) 0.067ng/mL (0.000-0.055) RW-Zja-N-Type Natriuretic Peptide 23201tu/mL (0-449) Glucose (Fingerstick) 340mg/dL (70-99) Test 08/07/16 07:48 08/07/16 11:25 Glucose (Fingerstick) 219mg/dL (70-99) 160mg/dL (70-99) Laboratory Tests Test 08/06/16 16:50 08/06/16 20:38 08/07/16 01:00 08/07/16 06:51 White Blood Count 9.6x10^3/uL (4.0-11.0) 7.9x10^3/uL (4.0-11.0) Red Blood Count 3.14x10^6/uL (4.30-5.70) 2.74x10^6/uL (4.30-5.70) Hemoglobin 9.9g/dL (13.0-17.5) 8.8g/dL (13.0-17.5) Hematocrit 30.3% (39.0-53.0) 26.2% (39.0-53.0) Mean Corpuscular Volume 96fL (79-100) 96fL (79-100) Mean Corpuscular Hemoglobin 32pg (25-35) 32pg (25-35) Mean Corpuscular Hemoglobin Concent 33g/dL (31-37) 34g/dL (31-37) Red Cell Distribution Width 15.0% (11.5-14.5) 14.9% (11.5-14.5) Platelet Count 245x10^3/uL (140-400) 204x10^3/uL (140-400) Neutrophils (%) (Auto) 80% (31-73) 73% (31-73) Lymphocytes (%) (Auto) 10% (24-48) 13% (24-48) Monocytes (%) (Auto) 6% (0-9) 8% (0-9) Eosinophils (%) (Auto) 4% (0-3) 6% (0-3) Basophils (%) (Auto) 1% (0-3) 1% (0-3) Neutrophils # (Auto) 7.6x10^3uL (1.8-7.7) 5.8x10^3uL (1.8-7.7) Lymphocytes # (Auto) 1.0x10^3/uL (1.0-4.8) 1.0x10^3/uL (1.0-4.8) Monocytes # (Auto) 0.5x10^3/uL (0.0-1.1) 0.6x10^3/uL (0.0-1.1) Eosinophils # (Auto) 0.4x10^3/uL (0.0-0.7) 0.5x10^3/uL (0.0-0.7) Basophils # (Auto) 0.1x10^3/uL (0.0-0.2) 0.1x10^3/uL (0.0-0.2) Prothrombin Time 31.5SEC (11.7-14.0) Prothromb Time International Ratio 3.3 (0.8-1.1) Sodium Level 138mmol/L (136-145) 138mmol/L (136-145) Potassium Level 4.5mmol/L (3.5-5.1) 4.0mmol/L (3.5-5.1) Chloride Level 95mmol/L (98-107) 100mmol/L (98-107) Carbon Dioxide Level 31mmol/L (21-32) 26mmol/L (21-32) Anion Gap 12 (6-14) 12 (6-14) Blood Urea Nitrogen 66mg/dL (8-26) 70mg/dL (8-26) Creatinine 8.9mg/dL (0.7-1.3) 9.1mg/dL (0.7-1.3) Estimated GFR (Cockcroft-Gault) 5.7 5.5 Glucose Level 456mg/dL (70-99) 227mg/dL (70-99) Calcium Level 8.8mg/dL (8.5-10.1) 8.1mg/dL (8.5-10.1) Magnesium Level 2.2mg/dL (1.8-2.4) Troponin I Quantitative 0.065ng/mL (0.000-0.055) 0.065ng/mL (0.000-0.055) 0.067ng/mL (0.000-0.055) XQ-Qgs-L-Type Natriuretic Peptide 49962cc/mL (0-449) Glucose (Fingerstick) 340mg/dL (70-99) Test 08/07/16 07:48 08/07/16 11:25 Glucose (Fingerstick) 219mg/dL (70-99) 160mg/dL (70-99) Medications Current Medications Aspirin (Children'S Aspirin) 324 mg 1X ONCE PO Last administered on 08/06/16 17:33; Start 08/06/16 at 16:15; Stop 08/06/16 at 16:17; Status DC Acetaminophen/ Hydrocodone Bitart (Lortab 5/325) 2 tab 1X ONCE PO Last administered on 08/06/16 17:32; Start 08/06/16 at 16:15; Stop 08/06/16 at 16:17 ; Status DC Vancomycin HCl (Vanco Per Pharmacy) 1 each PRN DAILY PRN MC SEE COMMENTS Last administered on 08/06/16 19:54; Start 08/06/16 at 16:15 Piperacillin Sod/ Tazobactam Sod 1 each 1 each PRN DAILY PRN MC SEE COMMENTS; Start 08/06/16 at 16:15 Sodium Chloride 500 ml @ 500 mls/hr 1X ONCE IV Last administered on 16:56; Start 08/06/16 at 16:15; Stop 08/06/16 at 17:14; Status DC Vancomycin HCl 2 gm/Sodium Chloride 500 ml @ 250 mls/hr 1X ONCE IV Last administered on 08/06/16 17:34; Start 08/06/16 at 17:00; Stop 08/06/16 at 18:59 ; Status DC Piperacillin Sod/ Tazobactam Sod/ Sodium Chloride (Zosyn/Iv Sodium Chloride 0.9 % 50ml) 50 ml @ 100 mls/hr 1X ONCE IV Last administered on 08/06/16 16:58; Start 08/06/16 at 16:30; Stop 08/06/16 at 16:59; Status DC Ondansetron HCl (Zofran) 4 mg PRN Q8HRS PRN IV NAUSEA/VOMITING; Start 08/06/16 at 18:15; Stop 08/07/16 at 18:14 Morphine Sulfate 4 mg PRN Q2HR PRN IV PAIN; Start 08/06/16 at 18:15; Stop 08/07 at 18:14 Acetaminophen (Tylenol) 650 mg PRN Q4HRS PRN PO FEVER Last administered on 08/07 04:02; Start 08/06/16 at 18:15; Stop 08/07/16 at 18:14 Insulin Human Regular (Novolin R Vial) 10 unit 1X ONCE IV Last administered on 08/06/16 18:40; Start 08/06/16 at 18:15; Stop 08/06/16 at 18:29; Status DC Insulin Aspart (Novolog) 0-7 UNITS TIDWMEALS SQ Last administered on 08/07/16 09:00; Start 08/07/16 at 08:00 Dextrose 12.5 gm 12.5 gm PRN Q15MIN PRN IV SEE COMMENTS; Start 08/06/16 at 18: 15 Piperacillin Sod/ Tazobactam Sod/ Sodium Chloride (Zosyn/Iv Sodium Chloride 0.9 % 50ml) 50 ml @ 100 mls/hr Q12HR IV Last administered on 08/07/16 10:13; Start 08/07/16 at 09:00 Vancomycin HCl 1 each 1X ONCE MC ; Start 08/08/16 at 15:00; Stop 08/08/16 at 15 :01 Allopurinol (Zyloprim) 50 mg BID PO Last administered on 08/07/16 08:51; Start 08/07/16 at 09:00 Atorvastatin Calcium (Lipitor) 40 mg QHS PO ; Start 08/07/16 at 21:00 Carvedilol (Coreg) 6.26 mg BIDWMEALS PO ; Start 08/07/16 at 08:00; Stop at 12:04; Status DC Cinacalcet (Sensipar) 30 mg DAILY PO Last administered on 08/07/16 08:45; Start 08/07/16 at 09:00 Cyanocobalamin (Vitamin B-12) 5,000 mcg DAILY PO Last administered on 08:47; Start 08/07/16 at 09:00 Glimepiride (Amaryl) 4 mg DAILY PO Last administered on 08/07/16 08:48; Start 08/07/16 at 09:00 Fish Oil (Fish Oil) 1,000 mg DAILY PO Last administered on 08/07/16 08:45; Start 08/07/16 at 09:00 Vitamin D (Vitamin D3) 4,000 unit DAILY PO Last administered on 08/07/16 08:49 ; Start 08/07/16 at 09:00 Insulin Aspart (Novolog) 8 units TIDBFRMEAL SQ Last administered on 08/07/16 08:58; Start 08/07/16 at 07:30 Insulin Detemir (Levemir) 50 units QHS SQ Last administered on 08/06/16 23:14 ; Start 08/06/16 at 23:00 Ferrous Sulfate (Feosol) 325 mg DAILYWBKFT PO ; Start 08/07/16 at 08:00 Apixaban (Eliquis) 2.5 mg BID PO Last administered on 08/07/16 08:51; Start at 09:00 Info (Anti-Coagulation Monitoring By Pharmacy) 1 each PRN DAILY PRN MC SEE COMMENTS Last administered on 08/07/16 01:59; Start 08/06/16 at 22:15 Gabapentin (Neurontin) 100 mg QHS PO Last administered on 08/06/16 23:05; Start 08/06/16 at 23:00 Acetaminophen/ Hydrocodone Bitart (Lortab 5/325) 2 tab PRN Q4HRS PRN PO PAIN Last administered on 08/07/16 08:10; Start 08/07/16 at 07:45 Darbepoetin Lasha (Aranesp) 60 mcg WEEKLYHS SQ ; Start 08/07/16 at 21:00 Carvedilol (Coreg) 3.125 mg BIDWMEALS PO ; Start 08/07/16 at 17:00 Active Scripts Active Reported Sensipar (Cinacalcet Hcl) 30 Mg Tablet 1 Tab PO DAILY Allopurinol 100 Mg Tablet 50 Mg PO BID Glimepiride 2 Mg Tablet 4 Mg PO DAILY Procrit (Epoetin Lasha) 2,000 Unit/1 Ml Vial 0 IJ [id number] Novolog (Insulin Aspart) 100 Unit/1 Ml Cartridge 8 Unit SQ TIDAC Lantus Solostar (Insulin Glargine,Hum.rec.anlog) 100 Unit/1 Ml Insuln.pen 50 Unit SQ QHS Atorvastatin Calcium 40 Mg Tablet 1 Tab PO DAILY Pv Fish Oil 1,000 Mg Softgel (Ragan-3 Fatty Acids/Vitamin E) 1,000 Mg Capsule 1 Cap PO DAILY [iron glycinate] 28 Mg DAILY Vitamin B-12 (Cyanocobalamin (Vitamin B-12)) 1,000 Mcg Tablet 5,000 Mcg PO DAILY Vitamin D (Cholecalciferol (Vitamin D3)) 2,000 Unit Capsule 4,000 Unit PO DAILY Carvedilol 6.25 Mg Tablet 1 Tab PO BID Vitals/I & O Vital Sign - Last 24 Hours 08/06/16 08/06/16 08/06/16 08/06/16 15:33 16:17 17:17 17:32 Temp 97.4 97.4 Pulse 81 82 78 Resp 20 16 16 18 B/P 103/54 96/55 117/58 Pulse Ox 98 97 96 94 O2 Delivery Room Air Room Air Room Air Room Air 08/06/16 08/06/16 08/06/16 08/06/16 18:17 18:47 19:17 19:47 Pulse 78 76 61 79 Resp 16 16 B/P 110/55 99/76 104/58 97/51 Pulse Ox 97 96 96 96 O2 Delivery Room Air Room Air Room Air Room Air 08/06/16 08/06/16 08/06/16 08/06/16 19:55 20:00 20:00 23:00 Temp 98.5 97.9 98.5 97.9 Pulse 80 68 Resp 18 20 18 B/P 118/47 90/44 Pulse Ox 96 94 O2 Delivery Room Air Room Air Room Air Room Air 08/07/16 08/07/16 08/07/16 08/07/16 03:30 07:59 08:00 08:10 Temp 97.7 97.9 97.7 97.9 Pulse 60 64 64 Resp 18 18 18 B/P 92/49 105/48 105/48 Pulse Ox 96 95 98 O2 Delivery Room Air Room Air Room Air 08/07/16 08/07/16 08/07/16 09:10 10:41 11:52 Temp 97.5 97.5 Pulse 65 Resp 18 18 B/P 98/44 Pulse Ox 98 96 96 O2 Delivery Room Air Room Air Room Air Intake and Output 08/06/16 08/06/16 08/07/16 15:00 23:00 07:00 Intake Total 3400 ml 300 ml Balance 3400 ml 300 ml Nutrition Consultation Dietary Evaluation: Recommendations by RD: Increase Calorie Intake, Protein supplementation Comments: Novasource renal BID - 475kcal and 21.6g protein Expected Outcomes/Goals: meet >75% est nutr needs Malnutrition Findings: Weight Status: Obese Fluid Accumulation (Non-Severe: Mild depletion TOO CASTORENA MD Aug 07, 2016 12:51
[2016-08-07] MEDS ORDERED: HYDROCODONE/APAP 10/325 TABLET. PO PRN (13:15)
--- NOTE | 2016-08-07 13:44 | PDOC2 ---
CONSULT Date of Consult Date of Consult DATE: 08/07/16 TIME: 13:36 Reason for Consult Reason for Consult: skin biopsy Referring Physician Referring Physician: Dr Tony Identification/Chief Complaint Chief Complaint leg pain Source Source: Chart review, Patient History of Present Illness Reason for Visit: Bilateral calf pain related to skin changes. Areas to calf have been red, discolored and painful for over a month. 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 He does have a significant cardiac hx and is on Eliqus Past Medical History Cardiovascular: AFIB, CAD, HTN, NE, Hyperlipidemia Pulmonary: No pertinent hx CENTRAL NERVOUS SYSTEM: Other GI: No pertinent hx Heme/Onc: Anemia NOS Hepatobiliary: No pertinent hx Psych: No pertinent hx Musculoskeletal: Osteoarthritis Rheumatologic: No pertinent hx Infectious disease: No pertinent hx Renal/: Chronic renal failure Endocrine: Diabetes, Hyperparathyroidism Past Surgical History Past Surgical History: CABG, Cataract Removal, Total hip replacement, Tonsillectomy Family History Family History: Cancer, Diabetes, Hypertension, Stroke Social History No ALCOHOL: none Drugs: None Lives: with Family Domestic Violence: Neg Current Problem List Problem List Problems Medical Problems: (1) Erythema of lower extremity Status: Acute (2) Leg pain, bilateral Status: Acute (3) SOB (shortness of breath) Status: Acute Current Medications Current Medications Current Medications Aspirin (Children'S Aspirin) 324 mg 1X ONCE PO Last administered on 08/06/16 17:33; Start 08/06/16 at 16:15; Stop 08/06/16 at 16:17; Status DC Acetaminophen/ Hydrocodone Bitart (Lortab 5/325) 2 tab 1X ONCE PO Last administered on 08/06/16 17:32; Start 08/06/16 at 16:15; Stop 08/06/16 at 16:17 ; Status DC Vancomycin HCl (Vanco Per Pharmacy) 1 each PRN DAILY PRN MC SEE COMMENTS Last administered on 08/06/16 19:54; Start 08/06/16 at 16:15 Piperacillin Sod/ Tazobactam Sod 1 each 1 each PRN DAILY PRN MC SEE COMMENTS; Start 08/06/16 at 16:15 Sodium Chloride 500 ml @ 500 mls/hr 1X ONCE IV Last administered on 16:56; Start 08/06/16 at 16:15; Stop 08/06/16 at 17:14; Status DC Vancomycin HCl 2 gm/Sodium Chloride 500 ml @ 250 mls/hr 1X ONCE IV Last administered on 08/06/16 17:34; Start 08/06/16 at 17:00; Stop 08/06/16 at 18:59 ; Status DC Piperacillin Sod/ Tazobactam Sod/ Sodium Chloride (Zosyn/Iv Sodium Chloride 0.9 % 50ml) 50 ml @ 100 mls/hr 1X ONCE IV Last administered on 08/06/16 16:58; Start 08/06/16 at 16:30; Stop 08/06/16 at 16:59; Status DC Ondansetron HCl (Zofran) 4 mg PRN Q8HRS PRN IV NAUSEA/VOMITING; Start 08/06/16 at 18:15; Stop 08/07/16 at 18:14 Morphine Sulfate 4 mg PRN Q2HR PRN IV PAIN; Start 08/06/16 at 18:15; Stop 08/07 at 18:14 Acetaminophen (Tylenol) 650 mg PRN Q4HRS PRN PO FEVER Last administered on 08/07 04:02; Start 08/06/16 at 18:15; Stop 08/07/16 at 18:14 Insulin Human Regular (Novolin R Vial) 10 unit 1X ONCE IV Last administered on 08/06/16 18:40; Start 08/06/16 at 18:15; Stop 08/06/16 at 18:29; Status DC Insulin Aspart (Novolog) 0-7 UNITS TIDWMEALS SQ Last administered on 08/07/16 09:00; Start 08/07/16 at 08:00 Dextrose 12.5 gm 12.5 gm PRN Q15MIN PRN IV SEE COMMENTS; Start 08/06/16 at 18: 15 Piperacillin Sod/ Tazobactam Sod/ Sodium Chloride (Zosyn/Iv Sodium Chloride 0.9 % 50ml) 50 ml @ 100 mls/hr Q12HR IV Last administered on 08/07/16 10:13; Start 08/07/16 at 09:00 Vancomycin HCl 1 each 1X ONCE MC ; Start 08/08/16 at 15:00; Stop 08/08/16 at 15 :01 Allopurinol (Zyloprim) 50 mg BID PO Last administered on 08/07/16 08:51; Start 08/07/16 at 09:00 Atorvastatin Calcium (Lipitor) 40 mg QHS PO ; Start 08/07/16 at 21:00 Carvedilol (Coreg) 6.26 mg BIDWMEALS PO ; Start 08/07/16 at 08:00; Stop at 12:04; Status DC Cinacalcet (Sensipar) 30 mg DAILY PO Last administered on 08/07/16 08:45; Start 08/07/16 at 09:00 Cyanocobalamin (Vitamin B-12) 5,000 mcg DAILY PO Last administered on 08:47; Start 08/07/16 at 09:00 Glimepiride (Amaryl) 4 mg DAILY PO Last administered on 08/07/16 08:48; Start 08/07/16 at 09:00 Fish Oil (Fish Oil) 1,000 mg DAILY PO Last administered on 08/07/16 08:45; Start 08/07/16 at 09:00 Vitamin D (Vitamin D3) 4,000 unit DAILY PO Last administered on 08/07/16 08:49 ; Start 08/07/16 at 09:00 Insulin Aspart (Novolog) 8 units TIDBFRMEAL SQ Last administered on 08/07/16 08:58; Start 08/07/16 at 07:30 Insulin Detemir (Levemir) 50 units QHS SQ Last administered on 08/06/16 23:14 ; Start 08/06/16 at 23:00 Ferrous Sulfate (Feosol) 325 mg DAILYWBKFT PO ; Start 08/07/16 at 08:00 Apixaban (Eliquis) 2.5 mg BID PO Last administered on 08/07/16 08:51; Start at 09:00 Info (Anti-Coagulation Monitoring By Pharmacy) 1 each PRN DAILY PRN MC SEE COMMENTS Last administered on 08/07/16 01:59; Start 08/06/16 at 22:15 Gabapentin (Neurontin) 100 mg QHS PO Last administered on 08/06/16 23:05; Start 08/06/16 at 23:00 Acetaminophen/ Hydrocodone Bitart (Lortab 5/325) 2 tab PRN Q4HRS PRN PO PAIN Last administered on 08/07/16t 08:10; Start 08/07/16 at 07:45 Darbepoetin Lasha (Aranesp) 60 mcg WEEKLYHS SQ ; Start 08/07/16 at 21:00 Carvedilol (Coreg) 3.125 mg BIDWMEALS PO ; Start 08/07/16 at 17:00 Acetaminophen/ Hydrocodone Bitart (Lortab 10/325) 1 tab PRN Q4HRS PRN PO PAIN; Start 08/07/16 at 13:15 Active Scripts Active Reported Sensipar (Cinacalcet Hcl) 30 Mg Tablet 1 Tab PO DAILY Allopurinol 100 Mg Tablet 50 Mg PO BID Glimepiride 2 Mg Tablet 4 Mg PO DAILY Procrit (Epoetin Lasha) 2,000 Unit/1 Ml Vial 0 IJ [id number] Novolog (Insulin Aspart) 100 Unit/1 Ml Cartridge 8 Unit SQ TIDAC Lantus Solostar (Insulin Glargine,Hum.rec.anlog) 100 Unit/1 Ml Insuln.pen 50 Unit SQ QHS Atorvastatin Calcium 40 Mg Tablet 1 Tab PO DAILY Pv Fish Oil 1,000 Mg Softgel ([place]-3 Fatty Acids/Vitamin E) 1,000 Mg Capsule 1 Cap PO DAILY [iron glycinate] 28 Mg DAILY Vitamin B-12 (Cyanocobalamin (Vitamin B-12)) 1,000 Mcg Tablet 5,000 Mcg PO DAILY Vitamin D (Cholecalciferol (Vitamin D3)) 2,000 Unit Capsule 4,000 Unit PO DAILY Carvedilol 6.25 Mg Tablet 1 Tab PO BID Allergies Allergies: Coded Allergies: No Known Medication Allergies (Verified Allergy, Unknown, 01/14/15) ROS General: No: Chills, Other (fevers) PSYCHOLOGICAL ROS: No: Anxiety, Depression Eyes: No Blurry vision, No Double vision HEENT: No: Heacaches, Sore Throat Hematological and Lymphatic: YES: Bleeding Problems, Brusing Respiratory: YES: Shortness of breath, No: Cough Cardiovascular: No Chest Pain, No Palpitations Gastrointestinal: No Abdominal Pain, No Nausea, No Vomiting Musculoskeletal: Yes Other (see hpi) Neurological: Yes Numbness/Tingling, No Confusion Skin: No Pruritus, No Rash Physical Exam General: Alert, Oriented X3, Cooperative, No acute distress HEENT: PERRLA, Mucous membr. moist/pink Lungs: Clear to auscultation, Normal air movement Heart: Regular rate, Normal S1, Normal S2 Abdomen: Soft, Other (pd cath in place) Extremities: No cyanosis, Other (noted bilat skin changes to calfs, tender on exam) Neuro: Normal speech, Sensation intact Psych/Mental Status: Mental status NL, Mood NL Vitals VITALS Vital Signs Date Time Temp Pulse Resp B/P Pulse Ox O2 Delivery O2 Flow Rate FiO2 08/07/16 11:52 18 96 Room Air 08/07/16 10:41 97.5 65 98/44 97.5 Labs Labs Laboratory Tests Test 08/06/16 16:50 08/06/16 20:38 08/07/16 01:00 08/07/16 06:51 White Blood Count 9.6x10^3/uL (4.0-11.0) 7.9x10^3/uL (4.0-11.0) Red Blood Count 3.14x10^6/uL (4.30-5.70) 2.74x10^6/uL (4.30-5.70) Hemoglobin 9.9g/dL (13.0-17.5) 8.8g/dL (13.0-17.5) Hematocrit 30.3% (39.0-53.0) 26.2% (39.0-53.0) Mean Corpuscular Volume 96fL (79-100) 96fL (79-100) Mean Corpuscular Hemoglobin 32pg (25-35) 32pg (25-35) Mean Corpuscular Hemoglobin Concent 33g/dL (31-37) 34g/dL (31-37) Red Cell Distribution Width 15.0% (11.5-14.5) 14.9% (11.5-14.5) Platelet Count 245x10^3/uL (140-400) 204x10^3/uL (140-400) Neutrophils (%) (Auto) 80% (31-73) 73% (31-73) Lymphocytes (%) (Auto) 10% (24-48) 13% (24-48) Monocytes (%) (Auto) 6% (0-9) 8% (0-9) Eosinophils (%) (Auto) 4% (0-3) 6% (0-3) Basophils (%) (Auto) 1% (0-3) 1% (0-3) Neutrophils # (Auto) 7.6x10^3uL (1.8-7.7) 5.8x10^3uL (1.8-7.7) Lymphocytes # (Auto) 1.0x10^3/uL (1.0-4.8) 1.0x10^3/uL (1.0-4.8) Monocytes # (Auto) 0.5x10^3/uL (0.0-1.1) 0.6x10^3/uL (0.0-1.1) Eosinophils # (Auto) 0.4x10^3/uL (0.0-0.7) 0.5x10^3/uL (0.0-0.7) Basophils # (Auto) 0.1x10^3/uL (0.0-0.2) 0.1x10^3/uL (0.0-0.2) Prothrombin Time 31.5SEC (11.7-14.0) Prothromb Time International Ratio 3.3 (0.8-1.1) Sodium Level 138mmol/L (136-145) 138mmol/L (136-145) Potassium Level 4.5mmol/L (3.5-5.1) 4.0mmol/L (3.5-5.1) Chloride Level 95mmol/L (98-107) 100mmol/L (98-107) Carbon Dioxide Level 31mmol/L (21-32) 26mmol/L (21-32) Anion Gap 12 (6-14) 12 (6-14) Blood Urea Nitrogen 66mg/dL (8-26) 70mg/dL (8-26) Creatinine 8.9mg/dL (0.7-1.3) 9.1mg/dL (0.7-1.3) Estimated GFR (Cockcroft-Gault) 5.7 5.5 Glucose Level 456mg/dL (70-99) 227mg/dL (70-99) Calcium Level 8.8mg/dL (8.5-10.1) 8.1mg/dL (8.5-10.1) Magnesium Level 2.2mg/dL (1.8-2.4) Troponin I Quantitative 0.065ng/mL (0.000-0.055) 0.065ng/mL (0.000-0.055) 0.067ng/mL (0.000-0.055) BN-Czz-J-Type Natriuretic Peptide 29221kk/mL (0-449) Glucose (Fingerstick) 340mg/dL (70-99) Test 08/07/16 07:48 08/07/16 11:25 Glucose (Fingerstick) 219mg/dL (70-99) 160mg/dL (70-99) Laboratory Tests Test 08/06/16 16:50 08/06/16 20:38 08/07/16 01:00 08/07/16 06:51 White Blood Count 9.6x10^3/uL (4.0-11.0) 7.9x10^3/uL (4.0-11.0) Red Blood Count 3.14x10^6/uL (4.30-5.70) 2.74x10^6/uL (4.30-5.70) Hemoglobin 9.9g/dL (13.0-17.5) 8.8g/dL (13.0-17.5) Hematocrit 30.3% (39.0-53.0) 26.2% (39.0-53.0) Mean Corpuscular Volume 96fL (79-100) 96fL (79-100) Mean Corpuscular Hemoglobin 32pg (25-35) 32pg (25-35) Mean Corpuscular Hemoglobin Concent 33g/dL (31-37) 34g/dL (31-37) Red Cell Distribution Width 15.0% (11.5-14.5) 14.9% (11.5-14.5) Platelet Count 245x10^3/uL (140-400) 204x10^3/uL (140-400) Neutrophils (%) (Auto) 80% (31-73) 73% (31-73) Lymphocytes (%) (Auto) 10% (24-48) 13% (24-48) Monocytes (%) (Auto) 6% (0-9) 8% (0-9) Eosinophils (%) (Auto) 4% (0-3) 6% (0-3) Basophils (%) (Auto) 1% (0-3) 1% (0-3) Neutrophils # (Auto) 7.6x10^3uL (1.8-7.7) 5.8x10^3uL (1.8-7.7) Lymphocytes # (Auto) 1.0x10^3/uL (1.0-4.8) 1.0x10^3/uL (1.0-4.8) Monocytes # (Auto) 0.5x10^3/uL (0.0-1.1) 0.6x10^3/uL (0.0-1.1) Eosinophils # (Auto) 0.4x10^3/uL (0.0-0.7) 0.5x10^3/uL (0.0-0.7) Basophils # (Auto) 0.1x10^3/uL (0.0-0.2) 0.1x10^3/uL (0.0-0.2) Prothrombin Time 31.5SEC (11.7-14.0) Prothromb Time International Ratio 3.3 (0.8-1.1) Sodium Level 138mmol/L (136-145) 138mmol/L (136-145) Potassium Level 4.5mmol/L (3.5-5.1) 4.0mmol/L (3.5-5.1) Chloride Level 95mmol/L (98-107) 100mmol/L (98-107) Carbon Dioxide Level 31mmol/L (21-32) 26mmol/L (21-32) Anion Gap 12 (6-14) 12 (6-14) Blood Urea Nitrogen 66mg/dL (8-26) 70mg/dL (8-26) Creatinine 8.9mg/dL (0.7-1.3) 9.1mg/dL (0.7-1.3) Estimated GFR (Cockcroft-Gault) 5.7 5.5 Glucose Level 456mg/dL (70-99) 227mg/dL (70-99) Calcium Level 8.8mg/dL (8.5-10.1) 8.1mg/dL (8.5-10.1) Magnesium Level 2.2mg/dL (1.8-2.4) Troponin I Quantitative 0.065ng/mL (0.000-0.055) 0.065ng/mL (0.000-0.055) 0.067ng/mL (0.000-0.055) XA-Aio-L-Type Natriuretic Peptide 99474ge/mL (0-449) Glucose (Fingerstick) 340mg/dL (70-99) Test 08/07/16 07:48 08/07/16 11:25 Glucose (Fingerstick) 219mg/dL (70-99) 160mg/dL (70-99) Assessment/Plan Assessment/Plan ESRD bilat calf skin changes, 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
[2016-08-07 14:22] VITALS: BP 103/47
[2016-08-07] MEDS ORDERED: DEXTROSE 50% 25 GM / 50ML DISP.SYRIN. IV PRN (15:30)
--- NOTE | 2016-08-07 16:30 | CARD ---
APPROVED REPORT EXAM: Two-dimensional and M-mode echocardiogram with Doppler and color Doppler. Other Information Quality : AverageHR: 55bpm Rhythm : Bradycardia INDICATION Congestive Heart Failure 2D DIMENSIONS RVDd2.6 (2.9-3.5cm)Left Atrium(2D)4.2 (1.6-4.0cm) IVSd1.2 (0.7-1.1cm)Aortic Root(2D)3.3 (2.0-3.7cm) LVDd5.0 (3.9-5.9cm)LVOT Diameter2.4 (1.8-2.4cm) PWd1.2 (0.7-1.1cm)LVDs4.0 (2.5-4.0cm) FS (%) 19.8 %SV47.5 ml LVEF(%)40.5 (>50%) Aortic Valve AoV Peak Bradley.96.8cm/sAoV VTI21.4cm AO Peak GR.3.8mmHgLVOT VTI 13.99cm AO Mean GR.2mmHg Mitral Valve MV E Snnludhv874.1cm/sMV DECEL [id number] Tricuspid Valve TR P. [id number] Peak Gr.20mmHg LEFT VENTRICLE The left ventricle is normal size. There is mild concentric left ventricular hypertrophy. Left ventri ezequiel systolic function is normal. The Ejection Fraction is 50-55%. There is mild hypokinesis in the in ferior wall. Atrial fibrillation was noted throughout the exam, unable to assess left ventricular talib stolic function. No left ventricle thrombus noted on this study. RIGHT VENTRICLE The right ventricle is normal size. There is normal right ventricular wall thickness. Systolic functi on is mildly reduced. ATRIA The left atrium is mildly dilated. The right atrium size is normal. The interatrial septum is intact with no evidence for an atrial septal defect or patent foramen ovale as noted on 2-D or Doppler imagi ng. AORTIC VALVE The aortic valve is mildly sclerotic. The aortic valve is trileaflet. Doppler and Color Flow revealed no significant aortic regurgitation. There is no significant aortic valvular stenosis. MITRAL VALVE Mitral annular calcification is mild. The mitral valve leaflets are thickened. There is no evidence o f mitral valve prolapse. There is no mitral valve stenosis. Doppler and Color Flow revealed mild mitr al regurgitation. TRICUSPID VALVE Doppler and Color Flow revealed mild tricuspid regurgitation. The pulmonary artery systolic pressure is estimated at 24 mmHg. PULMONIC VALVE Doppler and Color Flow revealed trace pulmonic valvular regurgitation. There is no pulmonic valvular stenosis. GREAT VESSELS The aortic root is normal in size. The ascending aorta is normal in size. The pulmonary artery is nor mal. The IVC is normal in size and collapses >50% with inspiration. PERICARDIAL EFFUSION There is no evidence of significant pericardial effusion. Critical Notification Critical Value: No <Conclusion> The left ventricle is normal size. Left ventricle systolic function is normal. The Ejection Fraction is 50-55%. There is mild hypokinesis in the inferior wall. There is mild concentric left ventricular hypertrophy. There is no significant aortic valvular stenosis. Doppler and Color Flow revealed no significant aortic regurgitation. Doppler and Color Flow revealed mild mitral regurgitation. Doppler and Color Flow revealed mild tricuspid regurgitation. The pulmonary artery systolic pressure is estimated at 24 mmHg.
[2016-08-07] MEDS ORDERED: INSULIN ASPART 300 UNITS/3 ML INSULN.PEN SQ SCH (17:00)
[2016-08-07] MEDS: CARVEDILOL 3.125 MG TABLET PO SCH (17:29)
[2016-08-07 19:30] VITALS: BP 104/49
[2016-08-07] MEDS: GABAPENTIN 100 MG CAPSULE. PO SCH (20:39)
[2016-08-07] MEDS: INSULIN DETEMIR 300 UNITS/3 ML INSULN.PEN. SQ SCH (20:45)
[2016-08-07] MEDS: ATORVASTATIN CALCIUM 40 MG TABLET. PO SCH (21:00)
[2016-08-07] MEDS ORDERED: DARBEPOETIN ALFA 60 MCG/0.3 ML DISP.SYRIN. SQ SCH (21:00)
[2016-08-07 23:30] VITALS: BP 102/66
[2016-08-08 03:50] VITALS: BP 119/54
[2016-08-08] MEDS: HYDROCODONE/APAP 5/325MG TABLET. PO PRN ×5 (04:51→22:47)
[2016-08-08 05:40] LABS: HEMATOCRIT 27.6 % (39.0-53.0); HEMOGLOBIN 9.1 g/dL (13.0-17.5); RED BLOOD COUNT 2.87 x10^6/uL (4.30-5.70); RED CELL DISTRIBUTION WIDTH 15.5 % (11.5-14.5); WHITE BLOOD COUNT 9.1 x10^3/uL (4.0-11.0)
[2016-08-08 06:08] LABS: CALCIUM 8.3 mg/dL (8.5-10.1); CREATININE 8.7 mg/dL (0.7-1.3); GFR 5.8; PHOSPHORUS 6.6 mg/dL (2.6-4.7); POTASSIUM 4.2 mmol/L (3.5-5.1)
[2016-08-08 07:00] VITALS: BP 105/53
[2016-08-08] MEDS: CINACALCET HCL 30 MG TABLET PO SCH (08:23)
[2016-08-08] MEDS: ALLOPURINOL 100 MG TABLET. PO SCH ×2 (08:24→20:10)
[2016-08-08] MEDS: CARVEDILOL 3.125 MG TABLET PO SCH ×2 (08:25→18:19)
[2016-08-08] MEDS: CHOLECALCIFEROL (VITAMIN D3) 1,000 UNIT TABLET PO SCH (08:26)
[2016-08-08] MEDS: FERROUS SULFATE 325 MG TABLET PO SCH (08:26)
[2016-08-08] MEDS: CYANOCOBALAMIN (VITAMIN B-12) 1,000 MCG TABLET. PO SCH (08:26)
[2016-08-08] MEDS: OMEGA-3 FATTY ACIDS/FISH OIL 1,000 MG CAPSULE. PO SCH (08:27)
[2016-08-08] MEDS: GLIMEPIRIDE 2 MG TABLET PO SCH (08:27)
[2016-08-08] MEDS: INSULIN ASPART 300 UNITS/3 ML INSULN.PEN SQ SCH ×6 (08:39→17:41)
[2016-08-08] MEDS: PIPERACILLIN/TAZOBACTAM 2.25 GM in IV NORMAL SALINE 50ML 50 ML IV SCH ×2 (09:00→20:55)
--- NOTE | 2016-08-08 10:13 | PDOC ---
PROGRESS NOTES Chief Complaint Chief Complaint cc: BLE pain A/P 1. ? 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 Avoid IV narcotics, 2. Chronic systolic HF: stable. 3. H/o CAD 4. Chronic AFIB 5. Hypertension: Low BP, Decreasing dose - coreg. 6. Hyperlipidemia 7. Diabetes, II, uncontrolled: SSI, 8. ESRD on PD: on PD 9. Mild elevation of troponins: likely due to ESRD, monitor, cardiology bas been following, obtain records from [facility]. 10. Constipation: try Miralax, Vitals Vitals Vital Signs Date Time Temp Pulse Resp B/P Pulse Ox O2 Delivery O2 Flow Rate FiO2 08/08/16 08:25 81 105/53 08/08/16 08:00 Room Air 08/08/16 07:55 96 08/08/16 07:00 97.3 16 97.3 Physical Exam General: Alert, Oriented X3, Cooperative, No acute distress Heart: Regular rate, Normal S1, Normal S2 Lungs: Clear Abdomen: Soft, Other (pd cath in place) Extremities: No cyanosis, Other (noted bilat skin changes to calfs, tender on exam) Skin: Other (erythema with central darkening to bilateral calf and surrounding petechiae) Labs LABS Laboratory Tests Test 08/07/16 11:25 08/07/16 16:38 08/07/16 20:43 08/08/16 05:15 Glucose (Fingerstick) 160mg/dL (70-99) 228mg/dL (70-99) 322mg/dL (70-99) White Blood Count 9.1x10^3/uL (4.0-11.0) Red Blood Count 2.87x10^6/uL (4.30-5.70) Hemoglobin 9.1g/dL (13.0-17.5) Hematocrit 27.6% (39.0-53.0) Mean Corpuscular Volume 96fL (79-100) Mean Corpuscular Hemoglobin 32pg (25-35) Mean Corpuscular Hemoglobin Concent 33g/dL (31-37) Red Cell Distribution Width 15.5% (11.5-14.5) Platelet Count 207x10^3/uL (140-400) Sodium Level 138mmol/L (136-145) Potassium Level 4.2mmol/L (3.5-5.1) Chloride Level 97mmol/L (98-107) Carbon Dioxide Level 29mmol/L (21-32) Anion Gap 12 (6-14) Blood Urea Nitrogen 66mg/dL (8-26) Creatinine 8.7mg/dL (0.7-1.3) Estimated GFR (Cockcroft-Gault) 5.8 Glucose Level 325mg/dL (70-99) Calcium Level 8.3mg/dL (8.5-10.1) Phosphorus Level 6.6mg/dL (2.6-4.7) Test 08/08/16 08:19 Glucose (Fingerstick) 290mg/dL (70-99) Assessment and Plan Assessmemt and Plan Problems Medical Problems: (1) Erythema of lower extremity Status: Acute (2) Leg pain, bilateral Status: Acute (3) SOB (shortness of breath) Status: Acute Problems: Comment Review of Relevant I have reviewed the following items robert (where applicable) has been applied. Labs Laboratory Tests Test 08/06/16 16:50 08/06/16 20:38 08/07/16 01:00 08/07/16 06:51 White Blood Count 9.6x10^3/uL (4.0-11.0) 7.9x10^3/uL (4.0-11.0) Red Blood Count 3.14x10^6/uL (4.30-5.70) 2.74x10^6/uL (4.30-5.70) Hemoglobin 9.9g/dL (13.0-17.5) 8.8g/dL (13.0-17.5) Hematocrit 30.3% (39.0-53.0) 26.2% (39.0-53.0) Mean Corpuscular Volume 96fL (79-100) 96fL (79-100) Mean Corpuscular Hemoglobin 32pg (25-35) 32pg (25-35) Mean Corpuscular Hemoglobin Concent 33g/dL (31-37) 34g/dL (31-37) Red Cell Distribution Width 15.0% (11.5-14.5) 14.9% (11.5-14.5) Platelet Count 245x10^3/uL (140-400) 204x10^3/uL (140-400) Neutrophils (%) (Auto) 80% (31-73) 73% (31-73) Lymphocytes (%) (Auto) 10% (24-48) 13% (24-48) Monocytes (%) (Auto) 6% (0-9) 8% (0-9) Eosinophils (%) (Auto) 4% (0-3) 6% (0-3) Basophils (%) (Auto) 1% (0-3) 1% (0-3) Neutrophils # (Auto) 7.6x10^3uL (1.8-7.7) 5.8x10^3uL (1.8-7.7) Lymphocytes # (Auto) 1.0x10^3/uL (1.0-4.8) 1.0x10^3/uL (1.0-4.8) Monocytes # (Auto) 0.5x10^3/uL (0.0-1.1) 0.6x10^3/uL (0.0-1.1) Eosinophils # (Auto) 0.4x10^3/uL (0.0-0.7) 0.5x10^3/uL (0.0-0.7) Basophils # (Auto) 0.1x10^3/uL (0.0-0.2) 0.1x10^3/uL (0.0-0.2) Prothrombin Time 31.5SEC (11.7-14.0) Prothromb Time International Ratio 3.3 (0.8-1.1) Sodium Level 138mmol/L (136-145) 138mmol/L (136-145) Potassium Level 4.5mmol/L (3.5-5.1) 4.0mmol/L (3.5-5.1) Chloride Level 95mmol/L (98-107) 100mmol/L (98-107) Carbon Dioxide Level 31mmol/L (21-32) 26mmol/L (21-32) Anion Gap 12 (6-14) 12 (6-14) Blood Urea Nitrogen 66mg/dL (8-26) 70mg/dL (8-26) Creatinine 8.9mg/dL (0.7-1.3) 9.1mg/dL (0.7-1.3) Estimated GFR (Cockcroft-Gault) 5.7 5.5 Glucose Level 456mg/dL (70-99) 227mg/dL (70-99) Calcium Level 8.8mg/dL (8.5-10.1) 8.1mg/dL (8.5-10.1) Magnesium Level 2.2mg/dL (1.8-2.4) Troponin I Quantitative 0.065ng/mL (0.000-0.055) 0.065ng/mL (0.000-0.055) 0.067ng/mL (0.000-0.055) ZH-Spk-V-Type Natriuretic Peptide 82578nd/mL (0-449) Glucose (Fingerstick) 340mg/dL (70-99) Test 08/07/16 07:48 08/07/16 11:25 08/07/16 16:38 08/07/16 20:43 Glucose (Fingerstick) 219mg/dL (70-99) 160mg/dL (70-99) 228mg/dL (70-99) 322mg/dL (70-99) Test 08/08/16 05:15 08/08/16 08:19 White Blood Count 9.1x10^3/uL (4.0-11.0) Red Blood Count 2.87x10^6/uL (4.30-5.70) Hemoglobin 9.1g/dL (13.0-17.5) Hematocrit 27.6% (39.0-53.0) Mean Corpuscular Volume 96fL (79-100) Mean Corpuscular Hemoglobin 32pg (25-35) Mean Corpuscular Hemoglobin Concent 33g/dL (31-37) Red Cell Distribution Width 15.5% (11.5-14.5) Platelet Count 207x10^3/uL (140-400) Sodium Level 138mmol/L (136-145) Potassium Level 4.2mmol/L (3.5-5.1) Chloride Level 97mmol/L (98-107) Carbon Dioxide Level 29mmol/L (21-32) Anion Gap 12 (6-14) Blood Urea Nitrogen 66mg/dL (8-26) Creatinine 8.7mg/dL (0.7-1.3) Estimated GFR (Cockcroft-Gault) 5.8 Glucose Level 325mg/dL (70-99) Calcium Level 8.3mg/dL (8.5-10.1) Phosphorus Level 6.6mg/dL (2.6-4.7) Glucose (Fingerstick) 290mg/dL (70-99) Laboratory Tests Test 08/07/16 11:25 08/07/16 16:38 08/07/16 20:43 08/08/16 05:15 Glucose (Fingerstick) 160mg/dL (70-99) 228mg/dL (70-99) 322mg/dL (70-99) White Blood Count 9.1x10^3/uL (4.0-11.0) Red Blood Count 2.87x10^6/uL (4.30-5.70) Hemoglobin 9.1g/dL (13.0-17.5) Hematocrit 27.6% (39.0-53.0) Mean Corpuscular Volume 96fL (79-100) Mean Corpuscular Hemoglobin 32pg (25-35) Mean Corpuscular Hemoglobin Concent 33g/dL (31-37) Red Cell Distribution Width 15.5% (11.5-14.5) Platelet Count 207x10^3/uL (140-400) Sodium Level 138mmol/L (136-145) Potassium Level 4.2mmol/L (3.5-5.1) Chloride Level 97mmol/L (98-107) Carbon Dioxide Level 29mmol/L (21-32) Anion Gap 12 (6-14) Blood Urea Nitrogen 66mg/dL (8-26) Creatinine 8.7mg/dL (0.7-1.3) Estimated GFR (Cockcroft-Gault) 5.8 Glucose Level 325mg/dL (70-99) Calcium Level 8.3mg/dL (8.5-10.1) Phosphorus Level 6.6mg/dL (2.6-4.7) Test 08/08/16 08:19 Glucose (Fingerstick) 290mg/dL (70-99) Microbiology 08/06/16 Blood Culture - Preliminary, Resulted NO GROWTH AFTER 1 DAY Medications Current Medications Aspirin (Children'S Aspirin) 324 mg 1X ONCE PO Last administered on 08/06/16 17:33; Start 08/06/16 at 16:15; Stop 08/06/16 at 16:17; Status DC Acetaminophen/ Hydrocodone Bitart (Lortab 5/325) 2 tab 1X ONCE PO Last administered on 08/06/16 17:32; Start 08/06/16 at 16:15; Stop 08/06/16 at 16:17 ; Status DC Vancomycin HCl (Vanco Per Pharmacy) 1 each PRN DAILY PRN MC SEE COMMENTS Last administered on 08/06/16 19:54; Start 08/06/16 at 16:15 Piperacillin Sod/ Tazobactam Sod 1 each 1 each PRN DAILY PRN MC SEE COMMENTS; Start 08/06/16 at 16:15; Stop 08/07/16 at 16:23; Status DC Sodium Chloride 500 ml @ 500 mls/hr 1X ONCE IV Last administered on 16:56; Start 08/06/16 at 16:15; Stop 08/06/16 at 17:14; Status DC Vancomycin HCl 2 gm/Sodium Chloride 500 ml @ 250 mls/hr 1X ONCE IV Last administered on 08/06/16 17:34; Start 08/06/16 at 17:00; Stop 08/06/16 at 18:59 ; Status DC Piperacillin Sod/ Tazobactam Sod/ Sodium Chloride (Zosyn/Iv Sodium Chloride 0.9 % 50ml) 50 ml @ 100 mls/hr 1X ONCE IV Last administered on 08/06/16 16:58; Start 08/06/16 at 16:30; Stop 08/06/16 at 16:59; Status DC Ondansetron HCl (Zofran) 4 mg PRN Q8HRS PRN IV NAUSEA/VOMITING; Start 08/06/16 at 18:15; Stop 08/07/16 at 18:14; Status DC Morphine Sulfate 4 mg PRN Q2HR PRN IV PAIN; Start 08/06/16 at 18:15; Stop 08/07 at 18:14; Status DC Acetaminophen (Tylenol) 650 mg PRN Q4HRS PRN PO FEVER Last administered on 08/07 04:02; Start 08/06/16 at 18:15; Stop 08/07/16 at 18:14; Status DC Insulin Human Regular (Novolin R Vial) 10 unit 1X ONCE IV Last administered on 08/06/16 18:40; Start 08/06/16 at 18:15; Stop 08/06/16 at 18:29; Status DC Insulin Aspart (Novolog) 0-7 UNITS TIDWMEALS SQ Last administered on 08/08/16 08:39; Start 08/07/16 at 08:00 Dextrose 12.5 gm 12.5 gm PRN Q15MIN PRN IV SEE COMMENTS; Start 08/06/16 at 18: 15 Piperacillin Sod/ Tazobactam Sod/ Sodium Chloride (Zosyn/Iv Sodium Chloride 0.9 % 50ml) 50 ml @ 100 mls/hr Q12HR IV Last administered on 08/08/16 09:00; Start 08/07/16 at 09:00 Vancomycin HCl 1 each 1X ONCE MC ; Start 08/08/16 at 15:00; Stop 08/08/16 at 15 :01 Allopurinol (Zyloprim) 50 mg BID PO Last administered on 08/08/16 08:24; Start 08/07/16 at 09:00 Atorvastatin Calcium (Lipitor) 40 mg QHS PO ; Start 08/07/16 at 21:00 Carvedilol (Coreg) 6.26 mg BIDWMEALS PO ; Start 08/07/16 at 08:00; Stop at 12:04; Status DC Cinacalcet (Sensipar) 30 mg DAILY PO Last administered on 08/08/16 08:23; Start 08/07/16 at 09:00 Cyanocobalamin (Vitamin B-12) 5,000 mcg DAILY PO Last administered on 08:26; Start 08/07/16 at 09:00 Glimepiride (Amaryl) 4 mg DAILY PO Last administered on 08/08/16 08:27; Start 08/07/16 at 09:00 Fish Oil (Fish Oil) 1,000 mg DAILY PO Last administered on 08/08/16 08:27; Start 08/07/16 at 09:00 Vitamin D (Vitamin D3) 4,000 unit DAILY PO Last administered on 08/08/16 08:26 ; Start 08/07/16 at 09:00 Insulin Aspart (Novolog) 8 units TIDBFRMEAL SQ Last administered on 08/08/16 08:40; Start 08/07/16 at 07:30 Insulin Detemir (Levemir) 50 units QHS SQ Last administered on 08/07/16 20:45 ; Start 08/06/16 at 23:00 Ferrous Sulfate (Feosol) 325 mg DAILYWBKFT PO Last administered on 08/08/16 08 :26; Start 08/07/16 at 08:00 Apixaban (Eliquis) 2.5 mg BID PO Last administered on 08/07/16 08:51; Start at 09:00; Stop 08/07/16 at 19:29; Status DC Info (Anti-Coagulation Monitoring By Pharmacy) 1 each PRN DAILY PRN MC SEE COMMENTS Last administered on 08/07/16 01:59; Start 08/06/16 at 22:15 Gabapentin (Neurontin) 100 mg QHS PO Last administered on 08/07/16 20:39; Start 08/06/16 at 23:00 Acetaminophen/ Hydrocodone Bitart (Lortab 5/325) 2 tab PRN Q4HRS PRN PO PAIN Last administered on 08/08/16 06:14; Start 08/07/16 at 07:45 Darbepoetin Lasha (Aranesp) 60 mcg WEEKLYHS SQ Last administered on 08/07/16 20 :47; Start 08/07/16 at 21:00 Carvedilol (Coreg) 3.125 mg BIDWMEALS PO Last administered on 08/08/16 08:25; Start 08/07/16 at 17:00 Acetaminophen/ Hydrocodone Bitart (Lortab 10/325) 1 tab PRN Q4HRS PRN PO MILD- MOD PAIN; Start 08/07/16 at 13:15; Stop 08/07/16 at 16:23; Status DC Insulin Aspart (Novolog) 0-9 UNITS TIDWMEALS SQ ; Start 08/07/16 at 17:00; Status UNV Dextrose 12.5 gm PRN Q15MIN PRN IV SEE COMMENTS; Start 08/07/16 at 15:30; Status UNV Active Scripts Active Reported Sensipar (Cinacalcet Hcl) 30 Mg Tablet 1 Tab PO DAILY Allopurinol 100 Mg Tablet 50 Mg PO BID Glimepiride 2 Mg Tablet 4 Mg PO DAILY Procrit (Epoetin Lasha) 2,000 Unit/1 Ml Vial 0 IJ [id number] Novolog (Insulin Aspart) 100 Unit/1 Ml Cartridge 8 Unit SQ TIDAC Lantus Solostar (Insulin Glargine,Hum.rec.anlog) 100 Unit/1 Ml Insuln.pen 50 Unit SQ QHS Atorvastatin Calcium 40 Mg Tablet 1 Tab PO DAILY Pv Fish Oil 1,000 Mg Softgel (Agency-3 Fatty Acids/Vitamin E) 1,000 Mg Capsule 1 Cap PO DAILY [iron glycinate] 28 Mg DAILY Vitamin B-12 (Cyanocobalamin (Vitamin B-12)) 1,000 Mcg Tablet 5,000 Mcg PO DAILY Vitamin D (Cholecalciferol (Vitamin D3)) 2,000 Unit Capsule 4,000 Unit PO DAILY Carvedilol 6.25 Mg Tablet 1 Tab PO BID Vitals/I & O Vital Sign - Last 24 Hours 08/07/16 08/07/16 08/07/16 08/07/16 10:41 11:52 14:22 17:29 Temp 97.5 97.6 97.5 97.6 Pulse 65 70 72 Resp 19 18 20 B/P 98/44 103/47 98/48 Pulse Ox 96 96 94 O2 Delivery Room Air Room Air Room Air 08/07/16 08/07/16 08/07/16 08/07/16 17:41 19:30 19:54 23:30 Temp 98.0 98.0 98.0 98.0 Pulse 67 76 Resp 18 B/P 104/49 102/66 Pulse Ox 96 95 95 O2 Delivery Room Air Room Air Room Air Room Air 08/08/16 08/08/16 08/08/16 08/08/16 03:50 04:51 05:51 06:14 Temp 97.4 97.4 Pulse 74 Resp 18 B/P 119/54 Pulse Ox 96 O2 Delivery Room Air Room Air Room Air 08/08/16 08/08/16 08/08/16 08/08/16 07:00 07:55 08:00 08:25 Temp 97.3 97.3 Pulse 71 81 Resp 16 B/P 105/53 105/53 Pulse Ox 96 96 O2 Delivery Room Air Room Air Room Air Intake and Output 08/07/16 08/07/16 08/08/16 15:00 23:00 07:00 Intake Total 410 ml 600 ml 500 ml Balance 410 ml 600 ml 500 ml Nutrition Consultation Dietary Evaluation: Recommendations by RD: Increase Calorie Intake, Protein supplementation Comments: Novasource renal BID - 475kcal and 21.6g protein Expected Outcomes/Goals: meet >75% est nutr needs Malnutrition Findings: Weight Status: Obese Fluid Accumulation (Non-Severe: Mild depletion TOO CASTORENA MD Aug 08, 2016 10:13
--- NOTE | 2016-08-08 10:37 | PDOC ---
SURGICAL PROGRESS NOTE Subjective no new complaints daughter at bedside Vital Signs Vital Signs Date Time Temp Pulse Resp B/P Pulse Ox O2 Delivery O2 Flow Rate FiO2 08/08/16 08:25 81 105/53 08/08/16 08:00 Room Air 08/08/16 07:55 96 08/08/16 07:00 97.3 16 97.3 I&O Intake and Output 08/08/16 07:00 Intake Total 1510 ml Balance 1510 ml Intake Oral 1460 ml IV Total 50 ml PATIENT HAS A BRIDGES: No General: Alert, Oriented X3, No acute distress Skin: Other (BLE skin changes posteriorly) Labs Laboratory Tests Test 08/06/16 16:50 08/06/16 20:38 08/07/16 01:00 08/07/16 06:51 White Blood Count 9.6x10^3/uL (4.0-11.0) 7.9x10^3/uL (4.0-11.0) Red Blood Count 3.14x10^6/uL (4.30-5.70) 2.74x10^6/uL (4.30-5.70) Hemoglobin 9.9g/dL (13.0-17.5) 8.8g/dL (13.0-17.5) Hematocrit 30.3% (39.0-53.0) 26.2% (39.0-53.0) Mean Corpuscular Volume 96fL (79-100) 96fL (79-100) Mean Corpuscular Hemoglobin 32pg (25-35) 32pg (25-35) Mean Corpuscular Hemoglobin Concent 33g/dL (31-37) 34g/dL (31-37) Red Cell Distribution Width 15.0% (11.5-14.5) 14.9% (11.5-14.5) Platelet Count 245x10^3/uL (140-400) 204x10^3/uL (140-400) Neutrophils (%) (Auto) 80% (31-73) 73% (31-73) Lymphocytes (%) (Auto) 10% (24-48) 13% (24-48) Monocytes (%) (Auto) 6% (0-9) 8% (0-9) Eosinophils (%) (Auto) 4% (0-3) 6% (0-3) Basophils (%) (Auto) 1% (0-3) 1% (0-3) Neutrophils # (Auto) 7.6x10^3uL (1.8-7.7) 5.8x10^3uL (1.8-7.7) Lymphocytes # (Auto) 1.0x10^3/uL (1.0-4.8) 1.0x10^3/uL (1.0-4.8) Monocytes # (Auto) 0.5x10^3/uL (0.0-1.1) 0.6x10^3/uL (0.0-1.1) Eosinophils # (Auto) 0.4x10^3/uL (0.0-0.7) 0.5x10^3/uL (0.0-0.7) Basophils # (Auto) 0.1x10^3/uL (0.0-0.2) 0.1x10^3/uL (0.0-0.2) Prothrombin Time 31.5SEC (11.7-14.0) Prothromb Time International Ratio 3.3 (0.8-1.1) Sodium Level 138mmol/L (136-145) 138mmol/L (136-145) Potassium Level 4.5mmol/L (3.5-5.1) 4.0mmol/L (3.5-5.1) Chloride Level 95mmol/L (98-107) 100mmol/L (98-107) Carbon Dioxide Level 31mmol/L (21-32) 26mmol/L (21-32) Anion Gap 12 (6-14) 12 (6-14) Blood Urea Nitrogen 66mg/dL (8-26) 70mg/dL (8-26) Creatinine 8.9mg/dL (0.7-1.3) 9.1mg/dL (0.7-1.3) Estimated GFR (Cockcroft-Gault) 5.7 5.5 Glucose Level 456mg/dL (70-99) 227mg/dL (70-99) Calcium Level 8.8mg/dL (8.5-10.1) 8.1mg/dL (8.5-10.1) Magnesium Level 2.2mg/dL (1.8-2.4) Troponin I Quantitative 0.065ng/mL (0.000-0.055) 0.065ng/mL (0.000-0.055) 0.067ng/mL (0.000-0.055) JY-Qnd-M-Type Natriuretic Peptide 90863ae/mL (0-449) Glucose (Fingerstick) 340mg/dL (70-99) Test 08/07/16 07:48 08/07/16 11:25 08/07/16 16:38 08/07/16 20:43 Glucose (Fingerstick) 219mg/dL (70-99) 160mg/dL (70-99) 228mg/dL (70-99) 322mg/dL (70-99) Test 08/08/16 05:15 08/08/16 08:19 White Blood Count 9.1x10^3/uL (4.0-11.0) Red Blood Count 2.87x10^6/uL (4.30-5.70) Hemoglobin 9.1g/dL (13.0-17.5) Hematocrit 27.6% (39.0-53.0) Mean Corpuscular Volume 96fL (79-100) Mean Corpuscular Hemoglobin 32pg (25-35) Mean Corpuscular Hemoglobin Concent 33g/dL (31-37) Red Cell Distribution Width 15.5% (11.5-14.5) Platelet Count 207x10^3/uL (140-400) Sodium Level 138mmol/L (136-145) Potassium Level 4.2mmol/L (3.5-5.1) Chloride Level 97mmol/L (98-107) Carbon Dioxide Level 29mmol/L (21-32) Anion Gap 12 (6-14) Blood Urea Nitrogen 66mg/dL (8-26) Creatinine 8.7mg/dL (0.7-1.3) Estimated GFR (Cockcroft-Gault) 5.8 Glucose Level 325mg/dL (70-99) Calcium Level 8.3mg/dL (8.5-10.1) Phosphorus Level 6.6mg/dL (2.6-4.7) Glucose (Fingerstick) 290mg/dL (70-99) Laboratory Tests Test 08/07/16 11:25 08/07/16 16:38 08/07/16 20:43 08/08/16 05:15 Glucose (Fingerstick) 160mg/dL (70-99) 228mg/dL (70-99) 322mg/dL (70-99) White Blood Count 9.1x10^3/uL (4.0-11.0) Red Blood Count 2.87x10^6/uL (4.30-5.70) Hemoglobin 9.1g/dL (13.0-17.5) Hematocrit 27.6% (39.0-53.0) Mean Corpuscular Volume 96fL (79-100) Mean Corpuscular Hemoglobin 32pg (25-35) Mean Corpuscular Hemoglobin Concent 33g/dL (31-37) Red Cell Distribution Width 15.5% (11.5-14.5) Platelet Count 207x10^3/uL (140-400) Sodium Level 138mmol/L (136-145) Potassium Level 4.2mmol/L (3.5-5.1) Chloride Level 97mmol/L (98-107) Carbon Dioxide Level 29mmol/L (21-32) Anion Gap 12 (6-14) Blood Urea Nitrogen 66mg/dL (8-26) Creatinine 8.7mg/dL (0.7-1.3) Estimated GFR (Cockcroft-Gault) 5.8 Glucose Level 325mg/dL (70-99) Calcium Level 8.3mg/dL (8.5-10.1) Phosphorus Level 6.6mg/dL (2.6-4.7) Test 08/08/16 08:19 Glucose (Fingerstick) 290mg/dL (70-99) Problem List Problems Medical Problems: (1) Erythema of lower extremity Status: Acute (2) Leg pain, bilateral Status: Acute (3) SOB (shortness of breath) Status: Acute 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
[2016-08-08 11:00] VITALS: BP 94/47
[2016-08-08] MEDS ORDERED: DIALYSIS PATIENT. MC PRN (11:30)
--- NOTE | 2016-08-08 11:53 | PDOC ---
Renal-Progress Notes Subjective Notes Notes NOTHING NEW History of Present Illness Hx of present illness NO CHANGES Vitals Vitals Vital Signs Date Time Temp Pulse Resp B/P Pulse Ox O2 Delivery O2 Flow Rate FiO2 08/08/16 08:25 81 105/53 08/08/16 08:00 Room Air 08/08/16 07:55 96 08/08/16 07:00 97.3 16 97.3 Weight Weight [ ] I.O. Intake and Output Intake and Output 08/08/16 07:00 Intake Total 1510 ml Balance 1510 ml Intake Oral 1460 ml IV Total 50 ml Labs Labs Laboratory Tests Test 08/07/16 16:38 08/07/16 20:43 08/08/16 05:15 08/08/16 08:19 Glucose (Fingerstick) 228mg/dL (70-99) 322mg/dL (70-99) 290mg/dL (70-99) White Blood Count 9.1x10^3/uL (4.0-11.0) Red Blood Count 2.87x10^6/uL (4.30-5.70) Hemoglobin 9.1g/dL (13.0-17.5) Hematocrit 27.6% (39.0-53.0) Mean Corpuscular Volume 96fL (79-100) Mean Corpuscular Hemoglobin 32pg (25-35) Mean Corpuscular Hemoglobin Concent 33g/dL (31-37) Red Cell Distribution Width 15.5% (11.5-14.5) Platelet Count 207x10^3/uL (140-400) Sodium Level 138mmol/L (136-145) Potassium Level 4.2mmol/L (3.5-5.1) Chloride Level 97mmol/L (98-107) Carbon Dioxide Level 29mmol/L (21-32) Anion Gap 12 (6-14) Blood Urea Nitrogen 66mg/dL (8-26) Creatinine 8.7mg/dL (0.7-1.3) Estimated GFR (Cockcroft-Gault) 5.8 Glucose Level 325mg/dL (70-99) Calcium Level 8.3mg/dL (8.5-10.1) Phosphorus Level 6.6mg/dL (2.6-4.7) Micro Micro Microbiology 08/06/16 Blood Culture - Preliminary, Resulted NO GROWTH AFTER 1 DAY Review of Systems Constitutional: yes: alert, oriented, weakness Ears/Nose/Throat: Yes: no symptom reported Eyes: Yes: no symptom reported Pulmonary: Yes no symptom reported Musculoskeletal: Yes: leg pain, muscle pain, muscle stiffness Skin: Yes lesions, Yes rash Physical Exam General Appearance: no apparent distress Skin: warm Heart: S1S2 Extremities: atrophy, other (CALF EDEMA AND ERYTHEMA) Neurology: alert Musculoskeletal: Osteoarthritis Assessment Assessment 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
[2016-08-08] MEDS: SEVELAMER CARBONATE 2.4 GM PACKET. PO SCH ×2 (12:30→17:35)
[2016-08-08] MEDS ORDERED: POLYETHYLENE GLYCOL 3350 17 GM PACKET. PO PRN (12:45)
[2016-08-08 15:00] VITALS: BP 114/54
[2016-08-08] MEDS ORDERED: VANCOMYCIN RANDOM LEVEL. MC ONE (15:00)
[2016-08-08] MEDS: VANCOMYCIN PER PHARMACY MC PRN (15:55)
[2016-08-08] MEDS: VANCOMYCIN 1.5 GM in IV NORMAL SALINE 500ML BAG 500 ML IV SCH (17:36)
[2016-08-08 19:20] VITALS: BP 126/48
[2016-08-08] MEDS: GABAPENTIN 100 MG CAPSULE. PO SCH (20:10)
[2016-08-08] MEDS: INSULIN DETEMIR 300 UNITS/3 ML INSULN.PEN. SQ SCH (20:13)
[2016-08-08] MEDS: ATORVASTATIN CALCIUM 40 MG TABLET. PO SCH (20:14)
[2016-08-08 23:05] VITALS: BP 113/51
[2016-08-09] VITALS (7 sets, daily range): BP systolic 103–119; BP diastolic 49–71
[2016-08-09] MEDS: FERROUS SULFATE 325 MG TABLET PO SCH ×2 (08:00→08:34)
[2016-08-09 08:03] LABS: INR 2.2 (0.8-1.1); PROTHROMBIN TIME PATIENT 22.9 SEC (11.7-14.0)
[2016-08-09 08:08] LABS: CALCIUM 8.2 mg/dL (8.5-10.1); CREATININE 8.3 mg/dL (0.7-1.3); GFR 6.1; PHOSPHORUS 5.9 mg/dL (2.6-4.7); POTASSIUM 3.9 mmol/L (3.5-5.1)
[2016-08-09] MEDS: CYANOCOBALAMIN (VITAMIN B-12) 1,000 MCG TABLET. PO SCH (08:34)
[2016-08-09] MEDS: SEVELAMER CARBONATE 2.4 GM PACKET. PO SCH ×3 (08:35→17:03)
[2016-08-09] MEDS: OMEGA-3 FATTY ACIDS/FISH OIL 1,000 MG CAPSULE. PO SCH (08:35)
[2016-08-09] MEDS: GLIMEPIRIDE 2 MG TABLET PO SCH (08:35)
[2016-08-09] MEDS: ALLOPURINOL 100 MG TABLET. PO SCH ×2 (08:35→20:36)
[2016-08-09] MEDS: CINACALCET HCL 30 MG TABLET PO SCH (08:35)
[2016-08-09] MEDS: CARVEDILOL 3.125 MG TABLET PO SCH ×2 (08:36→17:03)
[2016-08-09] MEDS: HYDROCODONE/APAP 5/325MG TABLET. PO PRN ×2 (08:38→20:39)
[2016-08-09] MEDS: INSULIN ASPART 300 UNITS/3 ML INSULN.PEN SQ SCH ×6 (08:40→17:08)
[2016-08-09] MEDS: PIPERACILLIN/TAZOBACTAM 2.25 GM in IV NORMAL SALINE 50ML 50 ML IV SCH ×2 (09:44→20:36)
--- NOTE | 2016-08-09 11:20 | PDOC ---
Renal-Progress Notes Subjective Notes Notes NO NEW COMPLAINTS History of Present Illness Hx of present illness STABLE Vitals Vitals Vital Signs Date Time Temp Pulse Resp B/P Pulse Ox O2 Delivery O2 Flow Rate FiO2 08/09/16 09:44 96 Room Air 08/09/16 08:36 72 108/49 08/09/16 07:00 97.9 16 97.9 Weight Weight [ ] I.O. Intake and Output Intake and Output 08/09/16 07:00 Intake Total 900 ml Output Total 2 ml Balance 898 ml Intake Oral 900 ml Output Urine Total 0 ml Urine/Stool Mix 2 ml Labs Labs Laboratory Tests Test 08/08/16 12:02 08/08/16 15:15 08/08/16 17:30 08/08/16 20:12 Glucose (Fingerstick) 228mg/dL (70-99) 165mg/dL (70-99) 187mg/dL (70-99) Random Vancomycin Level 16.1mcg/mL Test 08/09/16 06:45 08/09/16 07:22 Prothrombin Time 22.9SEC (11.7-14.0) Prothromb Time International Ratio 2.2 (0.8-1.1) Sodium Level 139mmol/L (136-145) Potassium Level 3.9mmol/L (3.5-5.1) Chloride Level 98mmol/L (98-107) Carbon Dioxide Level 28mmol/L (21-32) Anion Gap 13 (6-14) Blood Urea Nitrogen 63mg/dL (8-26) Creatinine 8.3mg/dL (0.7-1.3) Estimated GFR (Cockcroft-Gault) 6.1 Glucose Level 203mg/dL (70-99) Calcium Level 8.2mg/dL (8.5-10.1) Phosphorus Level 5.9mg/dL (2.6-4.7) Glucose (Fingerstick) 206mg/dL (70-99) Micro Micro Microbiology 08/06/16 Blood Culture - Preliminary, Resulted NO GROWTH AFTER 2 DAYS Review of Systems Constitutional: yes: alert, oriented, weakness Ears/Nose/Throat: Yes: no symptom reported Eyes: Yes: no symptom reported Pulmonary: Yes no symptom reported Musculoskeletal: Yes: leg pain, muscle pain, muscle stiffness Skin: Yes lesions, Yes rash Physical Exam General Appearance: no apparent distress Skin: warm Heart: S1S2 Extremities: atrophy, other (CALF EDEMA AND ERYTHEMA) Neurology: alert Musculoskeletal: Osteoarthritis Assessment Assessment IMP LE CELLULITIS ANEMIA ESRD HYPERPHOSPHATEMIA PROB CALCIPHYLAXIS PLAN CONT RENVELA BINDER INCREASE SENSIPAR CONT WITH CAPD PTH IN AM ANTIBIOTICS TISSUE BX ONCE COAGS ARE ACCEPTABLE UPDATED DAUGHTER FLAKO CALLES MD Aug 09, 2016 11:20
--- NOTE | 2016-08-09 12:29 | PDOC ---
Provider Note Provider Note SURG eating lunch no new c/o tentatively on OR schedule tomorrow mid day for skin biopsy PND AM labs DARLYN FRANK MD Aug 09, 2016 12:29
[2016-08-09] MEDS: VANCOMYCIN PER PHARMACY MC PRN (12:39)
--- NOTE | 2016-08-09 13:51 | PDOC ---
PROGRESS NOTES Chief Complaint Chief Complaint cc: BLE pain A/P 1. ? 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 Avoid IV narcotics, 2. Chronic systolic HF: stable. 3. H/o CAD 4. Chronic AFIB 5. Hypertension: Low BP, Decreasing dose - coreg. 6. Hyperlipidemia 7. Diabetes, II, uncontrolled: SSI, 8. ESRD on PD: on PD 9. Mild elevation of troponin: likely due to ESRD, monitor, cardiology bas been following, obtain records from [facility]. 10. Constipation: try Miralax, Vitals Vitals Vital Signs Date Time Temp Pulse Resp B/P Pulse Ox O2 Delivery O2 Flow Rate FiO2 08/09/16 13:02 97.9 81 16 114/60 96 Room Air 97.9 Physical Exam General: Alert, Oriented X3, No acute distress Heart: Regular rate, Normal S1, Normal S2 Lungs: Clear Abdomen: Soft, Other (pd cath in place) Extremities: No cyanosis, Other (noted bilat skin changes to calfs, tender on exam) Skin: Other (BLE skin changes posteriorly) Labs LABS Laboratory Tests Test 08/08/16 15:15 08/08/16 17:30 08/08/16 20:12 08/09/16 06:45 Random Vancomycin Level 16.1mcg/mL Glucose (Fingerstick) 165mg/dL (70-99) 187mg/dL (70-99) Prothrombin Time 22.9SEC (11.7-14.0) Prothromb Time International Ratio 2.2 (0.8-1.1) Sodium Level 139mmol/L (136-145) Potassium Level 3.9mmol/L (3.5-5.1) Chloride Level 98mmol/L (98-107) Carbon Dioxide Level 28mmol/L (21-32) Anion Gap 13 (6-14) Blood Urea Nitrogen 63mg/dL (8-26) Creatinine 8.3mg/dL (0.7-1.3) Estimated GFR (Cockcroft-Gault) 6.1 Glucose Level 203mg/dL (70-99) Calcium Level 8.2mg/dL (8.5-10.1) Phosphorus Level 5.9mg/dL (2.6-4.7) Test 08/09/16 07:22 08/09/16 12:03 Glucose (Fingerstick) 206mg/dL (70-99) 158mg/dL (70-99) Assessment and Plan Assessmemt and Plan Problems Medical Problems: (1) Erythema of lower extremity Status: Acute (2) Leg pain, bilateral Status: Acute (3) SOB (shortness of breath) Status: Acute Problems: Comment Review of Relevant I have reviewed the following items robert (where applicable) has been applied. Labs Laboratory Tests Test 08/07/16 16:38 08/07/16 20:43 08/08/16 05:15 08/08/16 08:19 Glucose (Fingerstick) 228mg/dL (70-99) 322mg/dL (70-99) 290mg/dL (70-99) White Blood Count 9.1x10^3/uL (4.0-11.0) Red Blood Count 2.87x10^6/uL (4.30-5.70) Hemoglobin 9.1g/dL (13.0-17.5) Hematocrit 27.6% (39.0-53.0) Mean Corpuscular Volume 96fL (79-100) Mean Corpuscular Hemoglobin 32pg (25-35) Mean Corpuscular Hemoglobin Concent 33g/dL (31-37) Red Cell Distribution Width 15.5% (11.5-14.5) Platelet Count 207x10^3/uL (140-400) Sodium Level 138mmol/L (136-145) Potassium Level 4.2mmol/L (3.5-5.1) Chloride Level 97mmol/L (98-107) Carbon Dioxide Level 29mmol/L (21-32) Anion Gap 12 (6-14) Blood Urea Nitrogen 66mg/dL (8-26) Creatinine 8.7mg/dL (0.7-1.3) Estimated GFR (Cockcroft-Gault) 5.8 Glucose Level 325mg/dL (70-99) Calcium Level 8.3mg/dL (8.5-10.1) Phosphorus Level 6.6mg/dL (2.6-4.7) Test 08/08/16 12:02 08/08/16 15:15 08/08/16 17:30 08/08/16 20:12 Glucose (Fingerstick) 228mg/dL (70-99) 165mg/dL (70-99) 187mg/dL (70-99) Random Vancomycin Level 16.1mcg/mL Test 08/09/16 06:45 08/09/16 07:22 08/09/16 12:03 Prothrombin Time 22.9SEC (11.7-14.0) Prothromb Time International Ratio 2.2 (0.8-1.1) Sodium Level 139mmol/L (136-145) Potassium Level 3.9mmol/L (3.5-5.1) Chloride Level 98mmol/L (98-107) Carbon Dioxide Level 28mmol/L (21-32) Anion Gap 13 (6-14) Blood Urea Nitrogen 63mg/dL (8-26) Creatinine 8.3mg/dL (0.7-1.3) Estimated GFR (Cockcroft-Gault) 6.1 Glucose Level 203mg/dL (70-99) Calcium Level 8.2mg/dL (8.5-10.1) Phosphorus Level 5.9mg/dL (2.6-4.7) Glucose (Fingerstick) 206mg/dL (70-99) 158mg/dL (70-99) Laboratory Tests Test 08/08/16 15:15 08/08/16 17:30 08/08/16 20:12 08/09/16 06:45 Random Vancomycin Level 16.1mcg/mL Glucose (Fingerstick) 165mg/dL (70-99) 187mg/dL (70-99) Prothrombin Time 22.9SEC (11.7-14.0) Prothromb Time International Ratio 2.2 (0.8-1.1) Sodium Level 139mmol/L (136-145) Potassium Level 3.9mmol/L (3.5-5.1) Chloride Level 98mmol/L (98-107) Carbon Dioxide Level 28mmol/L (21-32) Anion Gap 13 (6-14) Blood Urea Nitrogen 63mg/dL (8-26) Creatinine 8.3mg/dL (0.7-1.3) Estimated GFR (Cockcroft-Gault) 6.1 Glucose Level 203mg/dL (70-99) Calcium Level 8.2mg/dL (8.5-10.1) Phosphorus Level 5.9mg/dL (2.6-4.7) Test 08/09/16 07:22 08/09/16 12:03 Glucose (Fingerstick) 206mg/dL (70-99) 158mg/dL (70-99) Microbiology 08/06/16 Blood Culture - Preliminary, Resulted NO GROWTH AFTER 2 DAYS Medications Current Medications Aspirin (Children'S Aspirin) 324 mg 1X ONCE PO Last administered on 08/06/16 17:33; Start 08/06/16 at 16:15; Stop 08/06/16 at 16:17; Status DC Acetaminophen/ Hydrocodone Bitart (Lortab 5/325) 2 tab 1X ONCE PO Last administered on 08/06/16 17:32; Start 08/06/16 at 16:15; Stop 08/06/16 at 16:17 ; Status DC Vancomycin HCl (Vanco Per Pharmacy) 1 each PRN DAILY PRN MC SEE COMMENTS Last administered on 08/09/16 12:39; Start 08/06/16 at 16:15 Piperacillin Sod/ Tazobactam Sod 1 each 1 each PRN DAILY PRN MC SEE COMMENTS; Start 08/06/16 at 16:15; Stop 08/07/16 at 16:23; Status DC Sodium Chloride 500 ml @ 500 mls/hr 1X ONCE IV Last administered on 16:56; Start 08/06/16 at 16:15; Stop 08/06/16 at 17:14; Status DC Vancomycin HCl 2 gm/Sodium Chloride 500 ml @ 250 mls/hr 1X ONCE IV Last administered on 08/06/16 17:34; Start 08/06/16 at 17:00; Stop 08/06/16 at 18:59 ; Status DC Piperacillin Sod/ Tazobactam Sod/ Sodium Chloride (Zosyn/Iv Sodium Chloride 0.9 % 50ml) 50 ml @ 100 mls/hr 1X ONCE IV Last administered on 08/06/16 16:58; Start 08/06/16 at 16:30; Stop 08/06/16 at 16:59; Status DC Ondansetron HCl (Zofran) 4 mg PRN Q8HRS PRN IV NAUSEA/VOMITING; Start 08/06/16 at 18:15; Stop 08/07/16 at 18:14; Status DC Morphine Sulfate 4 mg PRN Q2HR PRN IV PAIN; Start 08/06/16 at 18:15; Stop 08/07 at 18:14; Status DC Acetaminophen (Tylenol) 650 mg PRN Q4HRS PRN PO FEVER Last administered on 08/07 04:02; Start 08/06/16 at 18:15; Stop 08/07/16 at 18:14; Status DC Insulin Human Regular (Novolin R Vial) 10 unit 1X ONCE IV Last administered on 08/06/16 18:40; Start 08/06/16 at 18:15; Stop 08/06/16 at 18:29; Status DC Insulin Aspart (Novolog) 0-7 UNITS TIDWMEALS SQ Last administered on 08/09/16 12:06; Start 08/07/16 at 08:00 Dextrose 12.5 gm 12.5 gm PRN Q15MIN PRN IV SEE COMMENTS; Start 08/06/16 at 18: 15 Piperacillin Sod/ Tazobactam Sod/ Sodium Chloride (Zosyn/Iv Sodium Chloride 0.9 % 50ml) 50 ml @ 100 mls/hr Q12HR IV Last administered on 08/09/16 09:44; Start 08/07/16 at 09:00 Vancomycin HCl 1 each 1X ONCE MC Last administered on 08/08/16 15:00; Start 08/08/16 at 15:00; Stop 08/08/16 at 15:01; Status DC Allopurinol (Zyloprim) 50 mg BID PO Last administered on 08/09/16 08:35; Start 08/07/16 at 09:00 Atorvastatin Calcium (Lipitor) 40 mg QHS PO ; Start 08/07/16 at 21:00 Carvedilol (Coreg) 6.26 mg BIDWMEALS PO ; Start 08/07/16 at 08:00; Stop at 12:04; Status DC Cinacalcet (Sensipar) 30 mg DAILY PO Last administered on 08/09/16 08:35; Start 08/07/16 at 09:00 Cyanocobalamin (Vitamin B-12) 5,000 mcg DAILY PO Last administered on 08:34; Start 08/07/16 at 09:00 Glimepiride (Amaryl) 4 mg DAILY PO Last administered on 08/09/16 08:35; Start 08/07/16 at 09:00 Fish Oil (Fish Oil) 1,000 mg DAILY PO Last administered on 08/09/16 08:35; Start 08/07/16 at 09:00 Vitamin D (Vitamin D3) 4,000 unit DAILY PO Last administered on 08/08/16 08:26 ; Start 08/07/16 at 09:00; Stop 08/08/16 at 11:55; Status DC Insulin Aspart (Novolog) 8 units TIDBFRMEAL SQ Last administered on 08/09/16 12:06; Start 08/07/16 at 07:30 Insulin Detemir (Levemir) 50 units QHS SQ Last administered on 08/08/16 20:13 ; Start 08/06/16 at 23:00 Ferrous Sulfate (Feosol) 325 mg DAILYWBKFT PO Last administered on 08/08/16 08 :26; Start 08/07/16 at 08:00 Apixaban (Eliquis) 2.5 mg BID PO Last administered on 08/07/16 08:51; Start at 09:00; Stop 08/07/16 at 19:29; Status DC Info (Anti-Coagulation Monitoring By Pharmacy) 1 each PRN DAILY PRN MC SEE COMMENTS Last administered on 08/07/16 01:59; Start 08/06/16 at 22:15 Gabapentin (Neurontin) 100 mg QHS PO Last administered on 08/08/16 20:10; Start 08/06/16 at 23:00 Acetaminophen/ Hydrocodone Bitart (Lortab 5/325) 2 tab PRN Q4HRS PRN PO PAIN Last administered on 08/09/16 08:38; Start 08/07/16 at 07:45 Darbepoetin Lasha (Aranesp) 60 mcg WEEKLYHS SQ Last administered on 08/07/16 20 :47; Start 08/07/16 at 21:00 Carvedilol (Coreg) 3.125 mg BIDWMEALS PO Last administered on 08/09/16 08:36; Start 08/07/16 at 17:00 Acetaminophen/ Hydrocodone Bitart (Lortab 10/325) 1 tab PRN Q4HRS PRN PO MILD- MOD PAIN; Start 08/07/16 at 13:15; Stop 08/07/16 at 16:23; Status DC Insulin Aspart (Novolog) 0-9 UNITS TIDWMEALS SQ ; Start 08/07/16 at 17:00; Status UNV Dextrose 12.5 gm PRN Q15MIN PRN IV SEE COMMENTS; Start 08/07/16 at 15:30; Status UNV Info (PHARMACY MONITORING -- do not chart) 1 each PRN DAILY PRN MC SEE COMMENTS ; Start 08/08/16 at 11:30 Sevelamer Carbonate (Renvela) 2.4 gm TIDWMEALS PO Last administered on 11:57; Start 08/08/16 at 12:30 Polyethylene Glycol 17 gm 17 gm PRN DAILY PRN PO CONSTIPATION Last administered on 08/08/16 13:46; Start 08/08/16 at 12:45 Vancomycin HCl/ Sodium Chloride (Iv Sodium Chloride 0.9% 500ml Bag) 500 ml @ 250 mls/hr Q48H IV Last administered on 08/08/16 17:36; Start 08/08/16 at 17: 00 Active Scripts Active Reported Sensipar (Cinacalcet Hcl) 30 Mg Tablet 1 Tab PO DAILY Allopurinol 100 Mg Tablet 50 Mg PO BID Glimepiride 2 Mg Tablet 4 Mg PO DAILY Procrit (Epoetin Lasha) 2,000 Unit/1 Ml Vial 0 IJ [id number] Novolog (Insulin Aspart) 100 Unit/1 Ml Cartridge 8 Unit SQ TIDAC Lantus Solostar (Insulin Glargine,Hum.rec.anlog) 100 Unit/1 Ml Insuln.pen 50 Unit SQ QHS Atorvastatin Calcium 40 Mg Tablet 1 Tab PO DAILY Pv Fish Oil 1,000 Mg Softgel ([place]-3 Fatty Acids/Vitamin E) 1,000 Mg Capsule 1 Cap PO DAILY Vitamin B-12 (Cyanocobalamin (Vitamin B-12)) 1,000 Mcg Tablet 5,000 Mcg PO DAILY Vitamin D (Cholecalciferol (Vitamin D3)) 2,000 Unit Capsule 4,000 Unit PO DAILY Carvedilol 6.25 Mg Tablet 1 Tab PO BID Vitals/I & O Vital Sign - Last 24 Hours 3/18/17 08/08/16 08/08/16 08/08/16 15:00 15:08 18:19 19:20 Temp 98.3 97.8 98.3 97.8 Pulse 79 79 77 Resp 16 20 B/P 114/54 114/54 126/48 Pulse Ox 95 96 99 O2 Delivery Room Air Room Air Room Air 08/08/16 08/08/16 08/08/16 08/08/16 20:10 20:29 22:47 23:05 Temp 97.4 97.4 Pulse 81 Resp 18 18 20 B/P 113/51 Pulse Ox 95 O2 Delivery Room Air Room Air 08/08/16 08/09/16 08/09/16 08/09/16 23:47 03:45 07:00 08:36 Temp 98.0 97.9 98.0 97.9 Pulse 85 72 72 Resp 18 20 16 B/P 105/57 108/49 108/49 Pulse Ox 96 96 O2 Delivery Room Air Room Air 08/09/16 08/09/16 08/09/16 08/09/16 08:38 08:51 09:44 11:00 Pulse 81 B/P 114/60 Pulse Ox 96 96 O2 Delivery Room Air Room Air Room Air 08/09/16 13:02 Temp 97.9 97.9 Pulse 81 Resp 16 B/P 114/60 Pulse Ox 96 O2 Delivery Room Air Intake and Output 08/08/16 08/08/16 08/09/16 15:00 23:00 07:00 Intake Total 400 ml 500 ml Output Total 0 ml 2 ml Balance 400 ml 498 ml Nutrition Consultation Dietary Evaluation: Recommendations by RD: Increase Calorie Intake, Protein supplementation Comments: Novasource renal BID - 475kcal and 21.6g protein Expected Outcomes/Goals: meet >75% est nutr needs Malnutrition Findings: Weight Status: Obese Fluid Accumulation (Non-Severe: Mild depletion TOO CASTORENA MD Aug 09, 2016 13:51
[2016-08-09] MEDS: GABAPENTIN 100 MG CAPSULE. PO SCH (20:36)
[2016-08-09] MEDS: ATORVASTATIN CALCIUM 40 MG TABLET. PO SCH (20:36)
[2016-08-09] MEDS: INSULIN DETEMIR 300 UNITS/3 ML INSULN.PEN. SQ SCH (20:39)
[2016-08-10] MEDS: HYDROCODONE/APAP 5/325MG TABLET. PO PRN ×4 (00:10→21:05)
[2016-08-10] MEDS ORDERED: ONDANSETRON PF 4 MG/2 ML VIAL. IV PRN ×2 (00:45→12:30)
[2016-08-10 03:25] VITALS: BP 118/53
[2016-08-10 05:41] LABS: INR 1.5 (0.8-1.1); PROTHROMBIN TIME PATIENT 16.9 SEC (11.7-14.0)
[2016-08-10 05:45] LABS: CALCIUM 7.7 mg/dL (8.5-10.1); CREATININE 8.5 mg/dL (0.7-1.3)
[2016-08-10 07:00] VITALS: BP 109/55
[2016-08-10] MEDS: INSULIN ASPART 300 UNITS/3 ML INSULN.PEN SQ SCH ×6 (07:30→17:41)
[2016-08-10] MEDS: SEVELAMER CARBONATE 2.4 GM PACKET. PO SCH ×3 (08:00→17:02)
[2016-08-10] MEDS ORDERED: CEFAZOLIN 1GM IVPB FOR OMNI 50 ML IV PRN (08:00)
[2016-08-10] MEDS: VANCOMYCIN PER PHARMACY MC PRN (08:40)
[2016-08-10] MEDS: ALLOPURINOL 100 MG TABLET. PO SCH ×2 (09:30→21:04)
[2016-08-10] MEDS: CINACALCET HCL 30 MG TABLET PO SCH (09:30)
[2016-08-10] MEDS: CARVEDILOL 3.125 MG TABLET PO SCH ×2 (09:31→17:05)
[2016-08-10] MEDS: GLIMEPIRIDE 2 MG TABLET PO SCH (09:31)
[2016-08-10] MEDS: PIPERACILLIN/TAZOBACTAM 2.25 GM in IV NORMAL SALINE 50ML 50 ML IV SCH ×2 (09:32→21:05)
--- NOTE | 2016-08-10 09:40 | PDOC ---
Dialysis Progress Note Dialysis Note Dialysis Note Seen on CAPD tolerating treatment Well so far General Appearance: Awake: Alert Oriented x 3 Neck: No JVD or JVP Chest: CTA [place] Heart: S1 S2 Abdomen - Soft NTND Extremities - No Edema; wounds as previously documented ESRD: CAPD as ordered Lower ext wounds - for Bx today Long discussion with family at bedside about possible further steps in Mx of current issues Vitals Vital Signs Vital Signs Date Time Temp Pulse Resp B/P Pulse Ox O2 Delivery O2 Flow Rate FiO2 08/10/16 09:32 18 92 Room Air 08/10/16 09:31 80 109/55 08/10/16 07:00 98.0 98.0 Labs Last Labs Laboratory Tests Test 08/08/16 12:02 08/08/16 15:15 08/08/16 17:30 08/08/16 20:12 Glucose (Fingerstick) 228mg/dL (70-99) 165mg/dL (70-99) 187mg/dL (70-99) Random Vancomycin Level 16.1mcg/mL Test 08/09/16 06:45 08/09/16 07:22 08/09/16 12:03 08/09/16 16:40 Prothrombin Time 22.9SEC (11.7-14.0) Prothromb Time International Ratio 2.2 (0.8-1.1) Sodium Level 139mmol/L (136-145) Potassium Level 3.9mmol/L (3.5-5.1) Chloride Level 98mmol/L (98-107) Carbon Dioxide Level 28mmol/L (21-32) Anion Gap 13 (6-14) Blood Urea Nitrogen 63mg/dL (8-26) Creatinine 8.3mg/dL (0.7-1.3) Estimated GFR (Cockcroft-Gault) 6.1 Glucose Level 203mg/dL (70-99) Calcium Level 8.2mg/dL (8.5-10.1) Phosphorus Level 5.9mg/dL (2.6-4.7) Glucose (Fingerstick) 206mg/dL (70-99) 158mg/dL (70-99) 185mg/dL (70-99) Test 08/09/16 20:37 08/10/16 04:30 08/10/16 07:31 Glucose (Fingerstick) 228mg/dL (70-99) 209mg/dL (70-99) Prothrombin Time 16.9SEC (11.7-14.0) Prothromb Time International Ratio 1.5 (0.8-1.1) Sodium Level 140mmol/L (136-145) Potassium Level 4.0mmol/L (3.5-5.1) Chloride Level 98mmol/L (98-107) Carbon Dioxide Level 28mmol/L (21-32) Anion Gap 14 (6-14) Blood Urea Nitrogen 61mg/dL (8-26) Creatinine 8.5mg/dL (0.7-1.3) Estimated GFR (Cockcroft-Gault) 6.0 Glucose Level 177mg/dL (70-99) Calcium Level 7.7mg/dL (8.5-10.1) Laboratory Tests Test 08/09/16 12:03 08/09/16 16:40 08/09/16 20:37 08/10/16 04:30 Glucose (Fingerstick) 158mg/dL (70-99) 185mg/dL (70-99) 228mg/dL (70-99) Prothrombin Time 16.9SEC (11.7-14.0) Prothromb Time International Ratio 1.5 (0.8-1.1) Sodium Level 140mmol/L (136-145) Potassium Level 4.0mmol/L (3.5-5.1) Chloride Level 98mmol/L (98-107) Carbon Dioxide Level 28mmol/L (21-32) Anion Gap 14 (6-14) Blood Urea Nitrogen 61mg/dL (8-26) Creatinine 8.5mg/dL (0.7-1.3) Estimated GFR (Cockcroft-Gault) 6.0 Glucose Level 177mg/dL (70-99) Calcium Level 7.7mg/dL (8.5-10.1) Test 08/10/16 07:31 Glucose (Fingerstick) 209mg/dL (70-99) Assessment Assessment Problems Medical Problems: (1) Erythema of lower extremity Status: Acute (2) Leg pain, bilateral Status: Acute (3) SOB (shortness of breath) Status: Acute Problems: Plan Plan of Care Problems Medical Problems: (1) Erythema of lower extremity Status: Acute (2) Leg pain, bilateral Status: Acute (3) SOB (shortness of breath) Status: Acute FILIPPO RODRIGUES MD Aug 10, 2016 09:40
[2016-08-10] MEDS ORDERED: MAGNESIUM SULFATE 2GM 50 ML IV PRN (09:45)
[2016-08-10] MEDS: ANTI-COAG MONITOR BY PHARMACY. MC PRN (10:15)
[2016-08-10] MEDS ORDERED: DEXAMETHASONE SOD PHOS 20 MG/5 ML VIAL. ONE (10:32)
[2016-08-10] MEDS ORDERED: LIDOCAINE 2% 100 MG/5 ML DISP.SYRIN. ONE ×2 (10:32→11:01)
[2016-08-10] MEDS ORDERED: PROPOFOL 20 ML IV ONE (10:32)
[2016-08-10] MEDS ORDERED: ONDANSETRON PF 4 MG/2 ML VIAL. ONE (10:32)
[2016-08-10] MEDS ORDERED: FENTANYL PF 100 MCG/2 ML VIAL. ONE (10:34)
[2016-08-10] MEDS: IV NORMAL SALINE 1000ML BAG 500 ML IV SCH (10:57)
[2016-08-10] MEDS ORDERED: BUPIVACAINE-EPI 0.5%-1:200000 50 ML VIAL. ONE (11:11)
[2016-08-10 11:28] VITALS: BP 110/50
[2016-08-10] MEDS ORDERED: BUPIVACAINE-EPI 0.5%-1:200000 50 ML VIAL. IJ ONE (11:35)
[2016-08-10] MEDS ORDERED: NEOMY/BACITR/POLYMYXIN OINT PACKET. TP ONE (11:45)
--- NOTE | 2016-08-10 11:55 | PDOC ---
BRIEF OPERATIVE NOTE Date: Aug 10, 2016 Pre-Op Diagnosis calciphylaxis Post-Op Diagnosis same Procedure Performed biopsy of skin and subcutaneous fat posterior RLE Surgeon Jagjit Anesthesia Type: MAC, Local Blood Loss <5cc IV Fluid 50cc Specimens Obtained skin and subcutaneous tissue posterior RLE Additional Remarks Wk # [id number] DARLYN FRANK MD Aug 10, 2016 11:55
[2016-08-10] MEDS ORDERED: ALBUTEROL SULFATE 2.5 MG/3 ML NEBU. ONE (12:21)
[2016-08-10] MEDS ORDERED: IV RINGERS,LACTATED 1000ML 1,000 ML IV SCH (12:30)
[2016-08-10] MEDS ORDERED: PROCHLORPERAZINE 10 MG/2 ML VIAL. IV PRN (12:30)
[2016-08-10] MEDS ORDERED: HYDROMORPHONE 2 MG/ML VIAL. IV PRN (12:30)
[2016-08-10] MEDS ORDERED: ALBUTEROL SULFATE 2.5 MG/3 ML NEBU. NEB ONE (12:30)
[2016-08-10] MEDS ORDERED: MORPHINE SULFATE 2 MG/ML DISP.SYRIN. IV PRN (12:30)
[2016-08-10] MEDS ORDERED: FENTANYL PF 100 MCG/2 ML VIAL. IV PRN (12:30)
[2016-08-10] MEDS ORDERED: LIDOCAINE 1% 1 ML SYRINGE. ID PRN (12:30)
[2016-08-10] MEDS: FENTANYL PF 100 MCG/2 ML VIAL. IV PRN ×2 (12:42→13:13)
[2016-08-10 13:16] LABS: PTH INTACT 273 pg/mL (15-65)
--- NOTE | 2016-08-10 13:38 | PDOC ---
PROGRESS NOTES Chief Complaint Chief Complaint cc: BLE pain A/P 1. ? 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 Avoid IV narcotics, 2. Chronic systolic HF: stable. 3. H/o CAD 4. Chronic AFIB 5. Hypertension: Low BP, Decreasing dose - coreg. 6. Hyperlipidemia 7. Diabetes, II, uncontrolled: SSI, 8. ESRD on PD: on PD 9. Mild elevation of troponin: likely due to ESRD, monitor, cardiology bas been following, obtain records from [facility]. 10. Constipation: try Miralax, right leg bx 08/10. check CXR for cough, add duoneb prn. PTOT, sw for possible rehab. History of Present Illness History of Present Illness cough for 2 days, no sob cont bl leg pain with dark red rashes posterior aspects of legs Vitals Vitals Vital Signs Date Time Temp Pulse Resp B/P Pulse Ox O2 Delivery O2 Flow Rate FiO2 08/10/16 13:13 21 96 Nasal Cannula 2.0 08/10/16 12:53 97.1 72 102/49 97.1 Physical Exam General: Alert, Oriented X3, No acute distress Heart: Regular rate, Normal S1, Normal S2 Lungs: Clear Abdomen: Soft, Other (pd cath in place) Extremities: No cyanosis, Other (noted bilat skin changes to calfs, tender on exam) Skin: Other (BLE skin changes posteriorly) Labs LABS Laboratory Tests Test 08/09/16 16:40 08/09/16 20:37 08/10/16 04:30 08/10/16 07:31 Glucose (Fingerstick) 185mg/dL (70-99) 228mg/dL (70-99) 209mg/dL (70-99) Prothrombin Time 16.9SEC (11.7-14.0) Prothromb Time International Ratio 1.5 (0.8-1.1) Sodium Level 140mmol/L (136-145) Potassium Level 4.0mmol/L (3.5-5.1) Chloride Level 98mmol/L (98-107) Carbon Dioxide Level 28mmol/L (21-32) Anion Gap 14 (6-14) Blood Urea Nitrogen 61mg/dL (8-26) Creatinine 8.5mg/dL (0.7-1.3) Estimated GFR (Non- 5 (>59) Estimated GFR (Cockcroft-Gault) 6.0 Glucose Level 177mg/dL (70-99) Calcium Level 7.7mg/dL (8.5-10.1) EGFR 6 (>59) PTH (Intact) Specimen Description Comment (.) Parathyroid Hormone (Intact) 273pg/mL (15-65) Calcium (PTH Intact) 7.7mg/dL (8.6-10.2) Creatinine (PTH Intact) 8.06mg/dL (0.76-1.27) Phosphorus (PTH Intact) 5.8mg/dL (2.5-4.5) Test 08/10/16 11:18 Glucose (Fingerstick) 170mg/dL (70-99) Review of Systems Review of Systems no fever, chills, sob or chest pain Assessment and Plan Assessmemt and Plan Problems Medical Problems: (1) Erythema of lower extremity Status: Acute (2) Leg pain, bilateral Status: Acute (3) SOB (shortness of breath) Status: Acute Problems: Comment Review of Relevant I have reviewed the following items robert (where applicable) has been applied. Labs Laboratory Tests Test 08/08/16 15:15 08/08/16 17:30 08/08/16 20:12 08/09/16 06:45 Random Vancomycin Level 16.1mcg/mL Glucose (Fingerstick) 165mg/dL (70-99) 187mg/dL (70-99) Prothrombin Time 22.9SEC (11.7-14.0) Prothromb Time International Ratio 2.2 (0.8-1.1) Sodium Level 139mmol/L (136-145) Potassium Level 3.9mmol/L (3.5-5.1) Chloride Level 98mmol/L (98-107) Carbon Dioxide Level 28mmol/L (21-32) Anion Gap 13 (6-14) Blood Urea Nitrogen 63mg/dL (8-26) Creatinine 8.3mg/dL (0.7-1.3) Estimated GFR (Cockcroft-Gault) 6.1 Glucose Level 203mg/dL (70-99) Calcium Level 8.2mg/dL (8.5-10.1) Phosphorus Level 5.9mg/dL (2.6-4.7) Test 08/09/16 07:22 08/09/16 12:03 08/09/16 16:40 08/09/16 20:37 Glucose (Fingerstick) 206mg/dL (70-99) 158mg/dL (70-99) 185mg/dL (70-99) 228mg/dL (70-99) Test 08/10/16 04:30 08/10/16 07:31 08/10/16 11:18 Prothrombin Time 16.9SEC (11.7-14.0) Prothromb Time International Ratio 1.5 (0.8-1.1) Sodium Level 140mmol/L (136-145) Potassium Level 4.0mmol/L (3.5-5.1) Chloride Level 98mmol/L (98-107) Carbon Dioxide Level 28mmol/L (21-32) Anion Gap 14 (6-14) Blood Urea Nitrogen 61mg/dL (8-26) Creatinine 8.5mg/dL (0.7-1.3) Estimated GFR (Non- 5 (>59) Estimated GFR (Cockcroft-Gault) 6.0 Glucose Level 177mg/dL (70-99) Calcium Level 7.7mg/dL (8.5-10.1) EGFR 6 (>59) PTH (Intact) Specimen Description Comment (.) Parathyroid Hormone (Intact) 273pg/mL (15-65) Calcium (PTH Intact) 7.7mg/dL (8.6-10.2) Creatinine (PTH Intact) 8.06mg/dL (0.76-1.27) Phosphorus (PTH Intact) 5.8mg/dL (2.5-4.5) Glucose (Fingerstick) 209mg/dL (70-99) 170mg/dL (70-99) Laboratory Tests Test 08/09/16 16:40 08/09/16 20:37 08/10/16 04:30 08/10/16 07:31 Glucose (Fingerstick) 185mg/dL (70-99) 228mg/dL (70-99) 209mg/dL (70-99) Prothrombin Time 16.9SEC (11.7-14.0) Prothromb Time International Ratio 1.5 (0.8-1.1) Sodium Level 140mmol/L (136-145) Potassium Level 4.0mmol/L (3.5-5.1) Chloride Level 98mmol/L (98-107) Carbon Dioxide Level 28mmol/L (21-32) Anion Gap 14 (6-14) Blood Urea Nitrogen 61mg/dL (8-26) Creatinine 8.5mg/dL (0.7-1.3) Estimated GFR (Non- 5 (>59) Estimated GFR (Cockcroft-Gault) 6.0 Glucose Level 177mg/dL (70-99) Calcium Level 7.7mg/dL (8.5-10.1) EGFR 6 (>59) PTH (Intact) Specimen Description Comment (.) Parathyroid Hormone (Intact) 273pg/mL (15-65) Calcium (PTH Intact) 7.7mg/dL (8.6-10.2) Creatinine (PTH Intact) 8.06mg/dL (0.76-1.27) Phosphorus (PTH Intact) 5.8mg/dL (2.5-4.5) Test 08/10/16 11:18 Glucose (Fingerstick) 170mg/dL (70-99) Microbiology 08/06/16 Blood Culture - Preliminary, Resulted NO GROWTH AFTER 3 DAYS Medications Current Medications Aspirin (Children'S Aspirin) 324 mg 1X ONCE PO Last administered on 08/06/16 17:33; Start 08/06/16 at 16:15; Stop 08/06/16 at 16:17; Status DC Acetaminophen/ Hydrocodone Bitart (Lortab 5/325) 2 tab 1X ONCE PO Last administered on 08/06/16 17:32; Start 08/06/16 at 16:15; Stop 08/06/16 at 16:17 ; Status DC Vancomycin HCl (Vanco Per Pharmacy) 1 each PRN DAILY PRN MC SEE COMMENTS Last administered on 08/10/16 08:40; Start 08/06/16 at 16:15 Piperacillin Sod/ Tazobactam Sod 1 each 1 each PRN DAILY PRN MC SEE COMMENTS; Start 08/06/16 at 16:15; Stop 08/07/16 at 16:23; Status DC Sodium Chloride 500 ml @ 500 mls/hr 1X ONCE IV Last administered on 16:56; Start 08/06/16 at 16:15; Stop 08/06/16 at 17:14; Status DC Vancomycin HCl 2 gm/Sodium Chloride 500 ml @ 250 mls/hr 1X ONCE IV Last administered on 08/06/16 17:34; Start 08/06/16 at 17:00; Stop 08/06/16 at 18:59 ; Status DC Piperacillin Sod/ Tazobactam Sod/ Sodium Chloride (Zosyn/Iv Sodium Chloride 0.9 % 50ml) 50 ml @ 100 mls/hr 1X ONCE IV Last administered on 08/06/16 16:58; Start 08/06/16 at 16:30; Stop 08/06/16 at 16:59; Status DC Ondansetron HCl (Zofran) 4 mg PRN Q8HRS PRN IV NAUSEA/VOMITING; Start 08/06/16 at 18:15; Stop 08/07/16 at 18:14; Status DC Morphine Sulfate 4 mg PRN Q2HR PRN IV PAIN; Start 08/06/16 at 18:15; Stop 08/07 at 18:14; Status DC Acetaminophen (Tylenol) 650 mg PRN Q4HRS PRN PO FEVER Last administered on 08/07 04:02; Start 08/06/16 at 18:15; Stop 08/07/16 at 18:14; Status DC Insulin Human Regular (Novolin R Vial) 10 unit 1X ONCE IV Last administered on 08/06/16 18:40; Start 08/06/16 at 18:15; Stop 08/06/16 at 18:29; Status DC Insulin Aspart (Novolog) 0-7 UNITS TIDWMEALS SQ Last administered on 08/09/16 17:08; Start 08/07/16 at 08:00 Dextrose 12.5 gm 12.5 gm PRN Q15MIN PRN IV SEE COMMENTS; Start 08/06/16 at 18: 15 Piperacillin Sod/ Tazobactam Sod/ Sodium Chloride (Zosyn/Iv Sodium Chloride 0.9 % 50ml) 50 ml @ 100 mls/hr Q12HR IV Last administered on 08/10/16 09:32; Start 08/07/16 at 09:00 Vancomycin HCl 1 each 1X ONCE MC Last administered on 08/08/16 15:00; Start 08/08/16 at 15:00; Stop 08/08/16 at 15:01; Status DC Allopurinol (Zyloprim) 50 mg BID PO Last administered on 08/10/16 09:30; Start 08/07/16 at 09:00 Atorvastatin Calcium (Lipitor) 40 mg QHS PO Last administered on 08/09/16 20: 36; Start 08/07/16 at 21:00 Carvedilol (Coreg) 6.26 mg BIDWMEALS PO ; Start 08/07/16 at 08:00; Stop at 12:04; Status DC Cinacalcet (Sensipar) 30 mg DAILY PO Last administered on 08/10/16 09:30; Start 08/07/16 at 09:00 Cyanocobalamin (Vitamin B-12) 5,000 mcg DAILY PO Last administered on 08:34; Start 08/07/16 at 09:00; Stop 08/09/16 at 19:14; Status DC Glimepiride (Amaryl) 4 mg DAILY PO Last administered on 08/10/16 09:31; Start 08/07/16 at 09:00 Fish Oil (Fish Oil) 1,000 mg DAILY PO Last administered on 08/09/16 08:35; Start 08/07/16 at 09:00; Stop 08/09/16 at 19:14; Status DC Vitamin D (Vitamin D3) 4,000 unit DAILY PO Last administered on 08/08/16 08:26 ; Start 08/07/16 at 09:00; Stop 08/08/16 at 11:55; Status DC Insulin Aspart (Novolog) 8 units [id number] SQ Last administered on 08/09/16 17:07; Start 08/07/16 at 07:30 Insulin Detemir (Levemir) 50 units QHS SQ Last administered on 08/09/16 20:39 ; Start 08/06/16 at 23:00 Ferrous Sulfate (Feosol) 325 mg [id number] PO Last administered on 08/08/16 08 :26; Start 08/07/16 at 08:00; Stop 08/09/16 at 19:14; Status DC Apixaban (Eliquis) 2.5 mg BID PO Last administered on 08/07/16 08:51; Start at 09:00; Stop 08/07/16 at 19:29; Status DC Info (Anti-Coagulation Monitoring By Pharmacy) 1 each PRN DAILY PRN MC SEE COMMENTS Last administered on 08/10/16 10:15; Start 08/06/16 at 22:15 Gabapentin (Neurontin) 100 mg QHS PO Last administered on 08/09/16 20:36; Start 08/06/16 at 23:00 Acetaminophen/ Hydrocodone Bitart (Lortab 5/325) 2 tab PRN Q4HRS PRN PO PAIN Last administered on 08/10/16 09:32; Start 08/07/16 at 07:45 Darbepoetin Lasha (Aranesp) 60 mcg WEEKLYHS SQ Last administered on 08/07/16 20 :47; Start 08/07/16 at 21:00 Carvedilol (Coreg) 3.125 mg BIDWMEALS PO Last administered on 08/10/16 09:31; Start 08/07/16 at 17:00 Acetaminophen/ Hydrocodone Bitart (Lortab 10/325) 1 tab PRN Q4HRS PRN PO MILD- MOD PAIN; Start 08/07/16 at 13:15; Stop 08/07/16 at 16:23; Status DC Insulin Aspart (Novolog) 0-9 UNITS TIDWMEALS SQ ; Start 08/07/16 at 17:00; Status UNV Dextrose 12.5 gm PRN Q15MIN PRN IV SEE COMMENTS; Start 08/07/16 at 15:30; Status UNV Info (PHARMACY MONITORING -- do not chart) 1 each PRN DAILY PRN MC SEE COMMENTS ; Start 08/08/16 at 11:30 Sevelamer Carbonate (Renvela) 2.4 gm TIDWMEALS PO Last administered on 17:03; Start 08/08/16 at 12:30 Polyethylene Glycol 17 gm 17 gm PRN DAILY PRN PO CONSTIPATION Last administered on 08/08/16 13:46; Start 08/08/16 at 12:45 Vancomycin HCl/ Sodium Chloride (Iv Sodium Chloride 0.9% 500ml Bag) 500 ml @ 250 mls/hr Q48H IV Last administered on 08/08/16 17:36; Start 08/08/16 at 17: 00 Ondansetron HCl 4 mg 4 mg PRN Q6HRS PRN IV NAUSEA/VOMITING Last administered on 08/10/16 00:44; Start 08/10/16 at 00:45 Cefazolin Sodium 50 ml @ 100 mls/hr 1X PREOP PRN IV prophylaxis Last administered on 08/10/16 11:26; Start 08/10/16 at 08:00; Stop 08/11/16 at 07:59 Magnesium Sulfate/ Dextrose (Magnesium Sulfate PREMIX 2GM) 50 ml @ 25 mls/hr PRN DAILY PRN IV for Mag < 1.7 on am labs; Start 08/10/16 at 09:45 Lidocaine HCl 100 mg 100 mg STK-MED ONCE .ROUTE ; Start 08/10/16 at 10:32; Stop 08/10/16 at 10:33; Status DC Propofol (Diprivan) 20 ml @ As Directed STK-MED ONCE IV ; Start 08/10/16 at 10: 32; Stop 08/10/16 at 10:33; Status DC Dexamethasone Sodium Phosphate (Decadron) 20 mg STK-MED ONCE .ROUTE ; Start at 10:32; Stop 08/10/16 at 10:33; Status DC Ondansetron HCl (Zofran) 4 mg STK-MED ONCE .ROUTE ; Start 08/10/16 at 10:32; Stop 08/10/16 at 10:33; Status DC Fentanyl Citrate 100 mcg 100 mcg STK-MED ONCE .ROUTE ; Start 08/10/16 at 10:34; Stop 08/10/16 at 10:35; Status DC Sodium Chloride (Iv Sodium Chloride 0.9% 1000ml Bag) 500 ml @ 30 mls/hr [id number] IV Last administered on 08/10/16 10:57; Start 08/10/16 at 10:45 Lidocaine HCl 100 mg STK-MED ONCE .ROUTE ; Start 08/10/16 at 11:01; Stop at 11:02; Status DC Bupivacaine HCl/ Epinephrine Bitart (Marcaine-Epi 0.5%-1:[id number]) 50 ml STK-MED ONCE .ROUTE ; Start 08/10/16 at 11:11; Stop 08/10/16 at 11:12; Status DC Neomycin/ Polymyxin/ Bacitracin (Triple Antibiotic Ointment) 1 pkt STK-MED ONCE TP Last administered on 08/10/16 11:47; Start 08/10/16 at 11:45; Stop at 11:46; Status DC Bupivacaine HCl/ Epinephrine Bitart (Marcaine-Epi 0.5%-1:[id number]) 50 ml STK-MED ONCE IJ Last administered on 08/10/16 11:35; Start 08/10/16 at 11:35; Stop at 11:59; Status DC Albuterol Sulfate (Ventolin Neb Soln) 2.5 mg STK-MED ONCE .ROUTE ; Start at 12:21; Stop 08/10/16 at 12:22; Status DC Albuterol Sulfate (Ventolin Neb Soln) 2.5 mg 1X ONCE NEB Last administered on 08/10/16 12:37; Start 08/10/16 at 12:30; Stop 08/10/16 at 12:31; Status DC Ondansetron HCl (Zofran) 4 mg PRN Q6HRS PRN IV Nausea; Start 08/10/16 at 12:30 ; Stop 08/11/16 at 12:29 Fentanyl Citrate (Fentanyl 2ml Vial) 25 mcg PRN Q5MIN PRN IV MILD PAIN Last administered on 08/10/16 13:13; Start 08/10/16 at 12:30; Stop 08/11/16 at 12:29 Fentanyl Citrate (Fentanyl 2ml Vial) 50 mcg PRN Q5MIN PRN IV MODERATE PAIN; Start 08/10/16 at 12:30; Stop 08/11/16 at 12:29 Morphine Sulfate 1 mg 1 mg PRN Q10MIN PRN IV SEVERE PAIN; Start 08/10/16 at 12: 30; Stop 08/11/16 at 12:29 Lactated Ringer's (Iv Lactated Ringers) 1,000 ml @ 30 mls/hr Q24H IV ; Start at 12:30; Stop 08/11/16 at 00:29 Lidocaine HCl 2 ml 1X PRN PRN ID IV START; Start 08/10/16 at 12:30; Stop at 12:29 Hydromorphone HCl (Dilaudid) 0.5 mg PRN Q10MIN PRN IV SEV PAIN,Second choice; Start 08/10/16 at 12:30; Stop 08/11/16 at 12:29 Prochlorperazine Edisylate (Compazine) 5 mg PACU PRN PRN IV NAUSEA; Start 08/10 at 12:30; Stop 08/11/16 at 12:29 Active Scripts Active Reported Sensipar (Cinacalcet Hcl) 30 Mg Tablet 1 Tab PO DAILY Allopurinol 100 Mg Tablet 50 Mg PO BID Glimepiride 2 Mg Tablet 4 Mg PO DAILY Procrit (Epoetin Lasha) 2,000 Unit/1 Ml Vial 0 IJ [id number] Novolog (Insulin Aspart) 100 Unit/1 Ml Cartridge 8 Unit SQ TIDAC Lantus Solostar (Insulin Glargine,Hum.rec.anlog) 100 Unit/1 Ml Insuln.pen 50 Unit SQ QHS Atorvastatin Calcium 40 Mg Tablet 1 Tab PO DAILY Carvedilol 6.25 Mg Tablet 1 Tab PO BID Vitals/I & O Vital Sign - Last 24 Hours 08/09/16 08/09/16 08/09/16 08/09/16 15:00 17:03 19:40 19:48 Temp 97.8 97.8 97.8 97.8 Pulse 75 75 79 Resp 16 B/P 103/58 103/58 119/55 Pulse Ox 95 O2 Delivery Room Air Room Air 08/09/16 08/09/16 08/10/16 08/10/16 20:39 22:13 00:10 01:10 Temp 98.1 98.1 Pulse 75 Resp 20 14 20 20 B/P 104/71 Pulse Ox 96 O2 Delivery Room Air Room Air Room Air 08/10/16 08/10/16 08/10/16 08/10/16 03:25 07:00 07:59 09:31 Temp 98.8 98.0 98.8 98.0 Pulse 92 80 80 Resp 16 20 B/P 118/53 109/55 109/55 Pulse Ox 96 92 O2 Delivery Room Air Room Air Room Air 08/10/16 08/10/16 08/10/16 08/10/16 09:32 10:39 10:51 11:28 Temp 98.0 98.0 98.0 98.0 Pulse 70 80 Resp B/P 83/48 110/50 Pulse Ox 92 92 99 96 O2 Delivery Room Air Room Air Room Air Room Air 08/10/16 08/10/16 08/10/16 08/10/16 11:54 11:55 12:09 12:23 Temp 97.1 97.1 97.1 97.1 97.1 97.1 Pulse 78 70 68 Resp B/P 95/45 105/79 103/69 Pulse Ox 100 100 100 O2 Delivery Nasal Cannula Nasal Cannula Nasal Cannula Nasal Cannula O2 Flow Rate 4 4 2 2 08/10/16 08/10/16 08/10/16 08/10/16 12:38 12:42 12:53 13:13 Temp 97.1 97.1 97.1 97.1 Pulse 68 72 Resp B/P 105/53 102/49 Pulse Ox 100 100 96 96 O2 Delivery Nasal Cannula Nasal Cannula Nasal Cannula Nasal Cannula O2 Flow Rate 2 2.0 2.0 2.0 Intake and Output 08/09/16 08/09/16 08/10/16 15:00 23:00 07:00 Intake Total 50 ml 400 ml Output Total 100 ml Balance 50 ml 300 ml Nutrition Consultation Dietary Evaluation: Recommendations by RD: Increase Calorie Intake, Protein supplementation Comments: Novasource renal BID - 475kcal and 21.6g protein Expected Outcomes/Goals: meet >75% est nutr needs Malnutrition Findings: Weight Status: Obese Fluid Accumulation (Non-Severe: Mild depletion YARED MOSELEY MD Aug 10, 2016 13:38
[2016-08-10] MEDS ORDERED: ACETAMINOPHEN 325 MG TABLET. PO PRN (13:45)
[2016-08-10] MEDS ORDERED: OXYC-323 PO (15:00)
[2016-08-10 15:57] VITALS: BP 103/65
--- NOTE | 2016-08-10 16:21 | RAD ---
Portable chest, 08/10/2016: History: Cough Comparison is made to a study from 08/06/2016. Fractured sternal wires are again noted. The heart size and pulmonary vascularity are normal. A hazy opacity at the cardiac apex is compatible with scarring and/or a prominent epicardial fat pad. Mild linear atelectasis has developed in the left parahilar region. No dense consolidation is seen. There is no evidence of pleural fluid. IMPRESSION: Mild left perihilar discoid atelectasis.
[2016-08-10] MEDS: ALBUTEROL SULFATE 2.5 MG/3 ML NEBU. NEB PRN (16:30)
[2016-08-10] MEDS: NYSTATIN 100,000 UNIT/GM TOPICAL CREAM 15GM TUBE. TP SCH (17:02)
[2016-08-10] MEDS: VANCOMYCIN 1.5 GM in IV NORMAL SALINE 500ML BAG 500 ML IV SCH (17:04)
--- NOTE | 2016-08-10 17:35 | PDOC ---
OBJECTIVE Vital Signs Vital Signs Date Time Temp Pulse Resp B/P Pulse Ox O2 Delivery O2 Flow Rate FiO2 08/10/16 17:05 69 107/56 08/10/16 16:21 98 Room Air 08/10/16 15:57 98.0 74 18 103/65 95 Nasal Cannula 98.0 08/10/16 15:39 18 95 Nasal Cannula 2.0 08/10/16 14:39 18 96 Nasal Cannula 2.0 08/10/16 13:23 97.4 72 20 94/55 98 Nasal Cannula 2.0 97.4 08/10/16 13:13 21 96 Nasal Cannula 2.0 08/10/16 13:08 97.1 74 20 95/47 99 Nasal Cannula 2.0 97.1 08/10/16 12:53 97.1 72 20 102/49 96 Nasal Cannula 2.0 97.1 08/10/16 12:42 20 100 Nasal Cannula 2.0 08/10/16 12:38 97.1 68 21 105/53 100 Nasal Cannula 2 97.1 08/10/16 12:23 97.1 68 21 103/69 100 Nasal Cannula 2 97.1 08/10/16 12:09 97.1 70 22 105/79 100 Nasal Cannula 2 97.1 08/10/16 11:55 Nasal Cannula 4 08/10/16 11:54 97.1 78 22 95/45 100 Nasal Cannula 4 97.1 08/10/16 11:28 98.0 80 20 110/50 96 Room Air 98.0 08/10/16 10:51 98.0 70 20 83/48 99 Room Air 98.0 08/10/16 09:32 18 92 Room Air 08/10/16 09:31 80 109/55 08/10/16 07:59 Room Air 08/10/16 07:00 98.0 80 20 109/55 92 Room Air 98.0 08/10/16 03:25 98.8 92 16 118/53 96 Room Air 98.8 08/10/16 00:10 20 Room Air 08/09/16 22:13 98.1 75 14 104/71 96 Room Air 98.1 08/09/16 20:39 20 Room Air 08/09/16 19:48 97.8 79 16 119/55 95 Room Air 97.8 08/09/16 19:40 Room Air I & O Intake and Output 3/20/17 07:00 Intake Total 450 ml Output Total 100 ml Balance 350 ml Intake Oral 400 ml IV Total 50 ml Emesis 100 ml # Voids 1 # Bowel Movements 2 ASSESSMENT/PLAN Assessment/Plan did not receive consult. No consult noted on chart order queue. Elizabeth rodriguez md Problems: COMMENT Lab Laboratory Tests Test 08/09/16 20:37 08/10/16 04:30 08/10/16 07:31 08/10/16 11:18 Glucose (Fingerstick) 228mg/dL (70-99) 209mg/dL (70-99) 170mg/dL (70-99) Prothrombin Time 16.9SEC (11.7-14.0) Prothromb Time International Ratio 1.5 (0.8-1.1) Sodium Level 140mmol/L (136-145) Potassium Level 4.0mmol/L (3.5-5.1) Chloride Level 98mmol/L (98-107) Carbon Dioxide Level 28mmol/L (21-32) Anion Gap 14 (6-14) Blood Urea Nitrogen 61mg/dL (8-26) Creatinine 8.5mg/dL (0.7-1.3) Estimated GFR (Non- 5 (>59) Estimated GFR (Cockcroft-Gault) 6.0 Glucose Level 177mg/dL (70-99) Calcium Level 7.7mg/dL (8.5-10.1) EGFR 6 (>59) PTH (Intact) Specimen Description Comment (.) Parathyroid Hormone (Intact) 273pg/mL (15-65) Calcium (PTH Intact) 7.7mg/dL (8.6-10.2) Creatinine (PTH Intact) 8.06mg/dL (0.76-1.27) Phosphorus (PTH Intact) 5.8mg/dL (2.5-4.5) Test 08/10/16 14:03 08/10/16 16:31 Glucose (Fingerstick) 118mg/dL (70-99) 154mg/dL (70-99) ELIZABETH RODRIGUEZ MD Aug 10, 2016 17:35
--- NOTE | 2016-08-10 17:48 | OP ---
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 PROCEDURE: Biopsy of skin and subcutaneous fat, right lower extremity. SURGEON: Darlyn Frank MD. ANESTHESIA: Local with sedation. ESTIMATED BLOOD LOSS: Less than 5 mL. IV FLUIDS: 50. INDICATIONS: The patient is an 85-year-old gentleman with end-stage renal disease on peritoneal dialysis. He has had pain and skin changes bilateral lower extremities posteriorly. He is brought for a biopsy per requesting of his social security specialist. DESCRIPTION OF PROCEDURE: The patient was brought to operating suite and with IV sedation on board, the posterior aspect of the right lower extremity was prepped and draped in usual sterile fashion. An elliptical incision was outlined with a marking pen, infiltrated with local anesthetic, sharply incised and the skin and subcutaneous tissue removed. Hemostasis with cautery and a 3-0 Vicryl stick tie. Wound closed with interrupted sutures of and 4-0 nylon. Sterile dressing applied. The patient taken to the postoperative in stable condition having tolerated the procedure well. DARLYN FRANK MD DR: STAN/raghu JOB#: [id number] / [id number]
[2016-08-10 19:40] VITALS: BP 118/58
[2016-08-10] MEDS: GABAPENTIN 100 MG CAPSULE. PO SCH (21:04)
[2016-08-10] MEDS: ATORVASTATIN CALCIUM 40 MG TABLET. PO SCH (21:04)
[2016-08-10 21:10] LABS: PTH INTACT 254 pg/mL (15-65)
[2016-08-10] MEDS: INSULIN DETEMIR 300 UNITS/3 ML INSULN.PEN. SQ SCH (21:15)
[2016-08-10 22:57] VITALS: BP 89/49
[2016-08-10] MEDS: ONDANSETRON PF 4 MG/2 ML VIAL. IV PRN (23:30)
[2016-08-11] MEDS: IV NORMAL SALINE 1000ML BAG 500 ML IV SCH (03:25)
[2016-08-11 03:57] VITALS: BP 120/61
[2016-08-11 04:34] LABS: ALBUMIN 1.9 g/dL (3.4-5.0); CALCIUM 7.7 mg/dL (8.5-10.1); CREATININE 8.2 mg/dL (0.7-1.3); GFR 6.2; PHOSPHORUS 6.6 mg/dL (2.6-4.7); POTASSIUM 3.8 mmol/L (3.5-5.1)
[2016-08-11 07:00] VITALS: BP 125/61
[2016-08-11] MEDS: PIPERACILLIN/TAZOBACTAM 2.25 GM in IV NORMAL SALINE 50ML 50 ML IV SCH (08:58)
[2016-08-11] MEDS: NYSTATIN 100,000 UNIT/GM TOPICAL CREAM 15GM TUBE. TP SCH (08:58)
[2016-08-11] MEDS: CINACALCET HCL 30 MG TABLET PO SCH (08:59)
[2016-08-11] MEDS: GLIMEPIRIDE 2 MG TABLET PO SCH (08:59)
[2016-08-11] MEDS: ALLOPURINOL 100 MG TABLET. PO SCH (08:59)
[2016-08-11] MEDS: SEVELAMER CARBONATE 2.4 GM PACKET. PO SCH ×2 (08:59→12:00)
[2016-08-11] MEDS: HYDROCODONE/APAP 5/325MG TABLET. PO PRN (08:59)
[2016-08-11] MEDS: CARVEDILOL 3.125 MG TABLET PO SCH (09:00)
[2016-08-11] MEDS: INSULIN ASPART 300 UNITS/3 ML INSULN.PEN SQ SCH ×4 (09:11→13:00)
[2016-08-11] MEDS: ALBUTEROL SULFATE 2.5 MG/3 ML NEBU. NEB PRN ×3 (09:16→15:54)
--- NOTE | 2016-08-11 10:14 | PDOC ---
Dialysis Progress Note Dialysis Note Dialysis Note Seen on CAPD tolerating treatment Well so far General Appearance: Awake: Alert Oriented x 3 Neck: No JVD or JVP Chest: CTA [place] Heart: S1 S2 Abdomen - Soft NTND Extremities - No Edema; wounds as previously documented ESRD: CAPD as ordered Lower ext wounds - for Bx today Long discussion with family at bedside about possible further steps in Mx of current issues Vitals Vital Signs Vital Signs Date Time Temp Pulse Resp B/P Pulse Ox O2 Delivery O2 Flow Rate FiO2 08/11/16 09:17 94 Room Air 08/11/16 09:00 85 125/61 08/11/16 08:59 18 2.0 08/11/16 07:00 97.5 97.5 Labs Last Labs Laboratory Tests Test 08/09/16 12:03 08/09/16 16:40 08/09/16 20:37 08/10/16 04:30 Glucose (Fingerstick) 158mg/dL (70-99) 185mg/dL (70-99) 228mg/dL (70-99) Prothrombin Time 16.9SEC (11.7-14.0) Prothromb Time International Ratio 1.5 (0.8-1.1) Sodium Level 140mmol/L (136-145) Potassium Level 4.0mmol/L (3.5-5.1) Chloride Level 98mmol/L (98-107) Carbon Dioxide Level 28mmol/L (21-32) Anion Gap 14 (6-14) Blood Urea Nitrogen 61mg/dL (8-26) Creatinine 8.5mg/dL (0.7-1.3) Estimated GFR (Non- 5 (>59) Estimated GFR (Cockcroft-Gault) 6.0 Glucose Level 177mg/dL (70-99) Calcium Level 7.7mg/dL (8.5-10.1) EGFR 6 (>59) PTH (Intact) Specimen Description Comment (.) Parathyroid Hormone (Intact) 273pg/mL (15-65) Calcium (PTH Intact) 7.7mg/dL (8.6-10.2) Creatinine (PTH Intact) 8.06mg/dL (0.76-1.27) Phosphorus (PTH Intact) 5.8mg/dL (2.5-4.5) Test 08/10/16 07:31 08/10/16 11:18 08/10/16 14:03 08/10/16 16:31 Glucose (Fingerstick) 209mg/dL (70-99) 170mg/dL (70-99) 118mg/dL (70-99) 154mg/dL (70-99) Test 08/10/16 20:40 08/11/16 03:55 08/11/16 07:49 Glucose (Fingerstick) 181mg/dL (70-99) 284mg/dL (70-99) Hemoglobin 8.4g/dL (13.0-17.5) Sodium Level 137mmol/L (136-145) Potassium Level 3.8mmol/L (3.5-5.1) Chloride Level 97mmol/L (98-107) Carbon Dioxide Level 30mmol/L (21-32) Anion Gap 10 (6-14) Blood Urea Nitrogen 60mg/dL (8-26) Creatinine 8.2mg/dL (0.7-1.3) Estimated GFR (Cockcroft-Gault) 6.2 Glucose Level 242mg/dL (70-99) Calcium Level 7.7mg/dL (8.5-10.1) Phosphorus Level 6.6mg/dL (2.6-4.7) Magnesium Level 1.9mg/dL (1.8-2.4) Albumin 1.9g/dL (3.4-5.0) Laboratory Tests Test 08/10/16 11:18 08/10/16 14:03 08/10/16 16:31 08/10/16 20:40 Glucose (Fingerstick) 170mg/dL (70-99) 118mg/dL (70-99) 154mg/dL (70-99) 181mg/dL (70-99) Test 08/11/16 03:55 08/11/16 07:49 Hemoglobin 8.4g/dL (13.0-17.5) Sodium Level 137mmol/L (136-145) Potassium Level 3.8mmol/L (3.5-5.1) Chloride Level 97mmol/L (98-107) Carbon Dioxide Level 30mmol/L (21-32) Anion Gap 10 (6-14) Blood Urea Nitrogen 60mg/dL (8-26) Creatinine 8.2mg/dL (0.7-1.3) Estimated GFR (Cockcroft-Gault) 6.2 Glucose Level 242mg/dL (70-99) Calcium Level 7.7mg/dL (8.5-10.1) Phosphorus Level 6.6mg/dL (2.6-4.7) Magnesium Level 1.9mg/dL (1.8-2.4) Albumin 1.9g/dL (3.4-5.0) Glucose (Fingerstick) 284mg/dL (70-99) Assessment Assessment Problems Medical Problems: (1) Erythema of lower extremity Status: Acute (2) Leg pain, bilateral Status: Acute (3) SOB (shortness of breath) Status: Acute Problems: Plan Plan of Care Problems Medical Problems: (1) Erythema of lower extremity Status: Acute (2) Leg pain, bilateral Status: Acute (3) SOB (shortness of breath) Status: Acute FILIPPO RODRIGUES MD Aug 11, 2016 10:13
[2016-08-11 10:44] VITALS: BP 127/57
--- NOTE | 2016-08-11 11:16 | PDOC ---
MELBA BLAS OTOLARYNGOLOGY SURGEON 08/11/16 1116: SURGICAL PROGRESS NOTE Subjective no complaints Vital Signs Vital Signs Date Time Temp Pulse Resp B/P Pulse Ox O2 Delivery O2 Flow Rate FiO2 08/11/16 10:44 97.8 87 18 127/57 98 Room Air 97.8 08/11/16 08:59 2.0 I&O Intake and Output 08/11/16 07:00 Intake Total 360 ml Output Total 5 ml Balance 355 ml Intake Oral 360 ml Output Urine Total 0 ml Estimated Blood Loss 5 ml # Bowel Movements 2 General: Alert, Oriented X3, Cooperative, No acute distress Skin: Other (RLE stitches intact, no bleeding ) Labs Laboratory Tests Test 08/09/16 12:03 08/09/16 16:40 08/09/16 20:37 08/10/16 04:30 Glucose (Fingerstick) 158mg/dL (70-99) 185mg/dL (70-99) 228mg/dL (70-99) Prothrombin Time 16.9SEC (11.7-14.0) Prothromb Time International Ratio 1.5 (0.8-1.1) Sodium Level 140mmol/L (136-145) Potassium Level 4.0mmol/L (3.5-5.1) Chloride Level 98mmol/L (98-107) Carbon Dioxide Level 28mmol/L (21-32) Anion Gap 14 (6-14) Blood Urea Nitrogen 61mg/dL (8-26) Creatinine 8.5mg/dL (0.7-1.3) Estimated GFR (Non- 5 (>59) Estimated GFR (Cockcroft-Gault) 6.0 Glucose Level 177mg/dL (70-99) Calcium Level 7.7mg/dL (8.5-10.1) EGFR 6 (>59) PTH (Intact) Specimen Description Comment (.) Parathyroid Hormone (Intact) 273pg/mL (15-65) Calcium (PTH Intact) 7.7mg/dL (8.6-10.2) Creatinine (PTH Intact) 8.06mg/dL (0.76-1.27) Phosphorus (PTH Intact) 5.8mg/dL (2.5-4.5) Test 08/10/16 07:31 08/10/16 11:18 08/10/16 14:03 08/10/16 16:31 Glucose (Fingerstick) 209mg/dL (70-99) 170mg/dL (70-99) 118mg/dL (70-99) 154mg/dL (70-99) Test 08/10/16 20:40 08/11/16 03:55 08/11/16 07:49 Glucose (Fingerstick) 181mg/dL (70-99) 284mg/dL (70-99) Hemoglobin 8.4g/dL (13.0-17.5) Sodium Level 137mmol/L (136-145) Potassium Level 3.8mmol/L (3.5-5.1) Chloride Level 97mmol/L (98-107) Carbon Dioxide Level 30mmol/L (21-32) Anion Gap 10 (6-14) Blood Urea Nitrogen 60mg/dL (8-26) Creatinine 8.2mg/dL (0.7-1.3) Estimated GFR (Cockcroft-Gault) 6.2 Glucose Level 242mg/dL (70-99) Calcium Level 7.7mg/dL (8.5-10.1) Phosphorus Level 6.6mg/dL (2.6-4.7) Magnesium Level 1.9mg/dL (1.8-2.4) Albumin 1.9g/dL (3.4-5.0) Laboratory Tests Test 08/10/16 11:18 08/10/16 14:03 08/10/16 16:31 08/10/16 20:40 Glucose (Fingerstick) 170mg/dL (70-99) 118mg/dL (70-99) 154mg/dL (70-99) 181mg/dL (70-99) Test 08/11/16 03:55 08/11/16 07:49 Hemoglobin 8.4g/dL (13.0-17.5) Sodium Level 137mmol/L (136-145) Potassium Level 3.8mmol/L (3.5-5.1) Chloride Level 97mmol/L (98-107) Carbon Dioxide Level 30mmol/L (21-32) Anion Gap 10 (6-14) Blood Urea Nitrogen 60mg/dL (8-26) Creatinine 8.2mg/dL (0.7-1.3) Estimated GFR (Cockcroft-Gault) 6.2 Glucose Level 242mg/dL (70-99) Calcium Level 7.7mg/dL (8.5-10.1) Phosphorus Level 6.6mg/dL (2.6-4.7) Magnesium Level 1.9mg/dL (1.8-2.4) Albumin 1.9g/dL (3.4-5.0) Glucose (Fingerstick) 284mg/dL (70-99) Problem List Problems Medical Problems: (1) Erythema of lower extremity Status: Acute (2) Leg pain, bilateral Status: Acute (3) SOB (shortness of breath) Status: Acute Assessment/Plan s/p biopsy, path pending Problems: DARLYN FRANK MD 08/11/16 1319: SURGICAL PROGRESS NOTE Assessment/Plan went by to see sleeping soundly in the recliner per his son at the bedside, no new issues post biopsy await results Problems: MELBA BLAS APRN Aug 11, 2016 11:16 DARLYN FRANK MD Aug 11, 2016 13:19
[2016-08-11] MEDS: VANCOMYCIN PER PHARMACY MC PRN (12:41)
[2016-08-11] MEDS: ONDANSETRON PF 4 MG/2 ML VIAL. IV PRN (12:54)
[2016-08-11] MEDS ORDERED: LANTHANUM CARBONATE 500 MG TAB.CHEW PO SCH (13:00)
--- NOTE | 2016-08-11 13:55 | PDOC ---
PROGRESS NOTES Chief Complaint Chief Complaint BLE pain A/P 1. ? 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 D/w Dr Danielosn: ok to d/c. F/U onm O/P basis 2. Pain control: hold OAC; PRN [place]. Avoid IV narcotics 3. Cough w/sputum production: bronchtis; CXR neg for PNA. azithro 2. Chronic systolic CHF: stable. 3. Chronic Afib: rate controlled 4. OAC: switched to eliquis from coumadin 5. Hx CAD: no acute issues 6. Hypertension: well controlled. coreg dose decreased 2/2 hypotension 7. Hyperlipidemia: on statin 8. DM: poorly controlled: long-acting insulin, ISS, 9. ESRD: on PD 9. Mild elevation of troponin: likely due to ESRD, monitor 10. Constipation: try Miralax, 11: Dispo: home w/services (not eligible for rehab 2/2 PD) History of Present Illness History of Present Illness cough for 2 days, no sob cont bl leg pain with dark red rashes posterior aspects of legs Vitals Vitals Vital Signs Date Time Temp Pulse Resp B/P Pulse Ox O2 Delivery O2 Flow Rate FiO2 08/11/16 12:23 95 Room Air 08/11/16 10:44 97.8 87 18 127/57 97.8 08/11/16 08:59 2.0 Physical Exam General: Alert, Oriented X3, Cooperative, No acute distress Heart: Regular rate Lungs: Clear Abdomen: Normal bowel sounds, Soft, No tenderness, Other (pd cath in place) Extremities: No cyanosis, Other (noted bilat skin changes to calfs, tender on exam) Skin: Other (RLE stitches intact, no bleeding ) Labs LABS Laboratory Tests Test 08/10/16 14:03 08/10/16 16:31 08/10/16 20:40 08/11/16 03:55 Glucose (Fingerstick) 118mg/dL (70-99) 154mg/dL (70-99) 181mg/dL (70-99) Hemoglobin 8.4g/dL (13.0-17.5) Sodium Level 137mmol/L (136-145) Potassium Level 3.8mmol/L (3.5-5.1) Chloride Level 97mmol/L (98-107) Carbon Dioxide Level 30mmol/L (21-32) Anion Gap 10 (6-14) Blood Urea Nitrogen 60mg/dL (8-26) Creatinine 8.2mg/dL (0.7-1.3) Estimated GFR (Cockcroft-Gault) 6.2 Glucose Level 242mg/dL (70-99) Calcium Level 7.7mg/dL (8.5-10.1) Phosphorus Level 6.6mg/dL (2.6-4.7) Magnesium Level 1.9mg/dL (1.8-2.4) Albumin 1.9g/dL (3.4-5.0) Test 08/11/16 07:49 08/11/16 11:55 Glucose (Fingerstick) 284mg/dL (70-99) 262mg/dL (70-99) Review of Systems Review of Systems BX site pain Comment Review of Relevant I have reviewed the following items robert (where applicable) has been applied. Labs Laboratory Tests Test 08/09/16 16:40 08/09/16 20:37 08/10/16 04:30 08/10/16 07:31 Glucose (Fingerstick) 185mg/dL (70-99) 228mg/dL (70-99) 209mg/dL (70-99) Prothrombin Time 16.9SEC (11.7-14.0) Prothromb Time International Ratio 1.5 (0.8-1.1) Sodium Level 140mmol/L (136-145) Potassium Level 4.0mmol/L (3.5-5.1) Chloride Level 98mmol/L (98-107) Carbon Dioxide Level 28mmol/L (21-32) Anion Gap 14 (6-14) Blood Urea Nitrogen 61mg/dL (8-26) Creatinine 8.5mg/dL (0.7-1.3) Estimated GFR (Non- 5 (>59) Estimated GFR (Cockcroft-Gault) 6.0 Glucose Level 177mg/dL (70-99) Calcium Level 7.7mg/dL (8.5-10.1) EGFR 6 (>59) PTH (Intact) Specimen Description Comment (.) Parathyroid Hormone (Intact) 273pg/mL (15-65) Calcium (PTH Intact) 7.7mg/dL (8.6-10.2) Creatinine (PTH Intact) 8.06mg/dL (0.76-1.27) Phosphorus (PTH Intact) 5.8mg/dL (2.5-4.5) Test 08/10/16 11:18 08/10/16 14:03 08/10/16 16:31 08/10/16 20:40 Glucose (Fingerstick) 170mg/dL (70-99) 118mg/dL (70-99) 154mg/dL (70-99) 181mg/dL (70-99) Test 08/11/16 03:55 08/11/16 07:49 08/11/16 11:55 Hemoglobin 8.4g/dL (13.0-17.5) Sodium Level 137mmol/L (136-145) Potassium Level 3.8mmol/L (3.5-5.1) Chloride Level 97mmol/L (98-107) Carbon Dioxide Level 30mmol/L (21-32) Anion Gap 10 (6-14) Blood Urea Nitrogen 60mg/dL (8-26) Creatinine 8.2mg/dL (0.7-1.3) Estimated GFR (Cockcroft-Gault) 6.2 Glucose Level 242mg/dL (70-99) Calcium Level 7.7mg/dL (8.5-10.1) Phosphorus Level 6.6mg/dL (2.6-4.7) Magnesium Level 1.9mg/dL (1.8-2.4) Albumin 1.9g/dL (3.4-5.0) Glucose (Fingerstick) 284mg/dL (70-99) 262mg/dL (70-99) Laboratory Tests Test 08/10/16 14:03 08/10/16 16:31 08/10/16 20:40 08/11/16 03:55 Glucose (Fingerstick) 118mg/dL (70-99) 154mg/dL (70-99) 181mg/dL (70-99) Hemoglobin 8.4g/dL (13.0-17.5) Sodium Level 137mmol/L (136-145) Potassium Level 3.8mmol/L (3.5-5.1) Chloride Level 97mmol/L (98-107) Carbon Dioxide Level 30mmol/L (21-32) Anion Gap 10 (6-14) Blood Urea Nitrogen 60mg/dL (8-26) Creatinine 8.2mg/dL (0.7-1.3) Estimated GFR (Cockcroft-Gault) 6.2 Glucose Level 242mg/dL (70-99) Calcium Level 7.7mg/dL (8.5-10.1) Phosphorus Level 6.6mg/dL (2.6-4.7) Magnesium Level 1.9mg/dL (1.8-2.4) Albumin 1.9g/dL (3.4-5.0) Test 08/11/16 07:49 08/11/16 11:55 Glucose (Fingerstick) 284mg/dL (70-99) 262mg/dL (70-99) Microbiology 08/06/16 Blood Culture - Preliminary, Resulted NO GROWTH AFTER 4 DAYS Medications Current Medications Aspirin (Children'S Aspirin) 324 mg 1X ONCE PO Last administered on 08/06/16 17:33; Start 08/06/16 at 16:15; Stop 08/06/16 at 16:17; Status DC Acetaminophen/ Hydrocodone Bitart (Lortab 5/325) 2 tab 1X ONCE PO Last administered on 08/06/16 17:32; Start 08/06/16 at 16:15; Stop 08/06/16 at 16:17 ; Status DC Vancomycin HCl (Vanco Per Pharmacy) 1 each PRN DAILY PRN MC SEE COMMENTS Last administered on 08/11/16 12:41; Start 08/06/16 at 16:15 Piperacillin Sod/ Tazobactam Sod 1 each 1 each PRN DAILY PRN MC SEE COMMENTS; Start 08/06/16 at 16:15; Stop 08/07/16 at 16:23; Status DC Sodium Chloride 500 ml @ 500 mls/hr 1X ONCE IV Last administered on 16:56; Start 08/06/16 at 16:15; Stop 08/06/16 at 17:14; Status DC Vancomycin HCl 2 gm/Sodium Chloride 500 ml @ 250 mls/hr 1X ONCE IV Last administered on 08/06/16 17:34; Start 08/06/16 at 17:00; Stop 08/06/16 at 18:59 ; Status DC Piperacillin Sod/ Tazobactam Sod/ Sodium Chloride (Zosyn/Iv Sodium Chloride 0.9 % 50ml) 50 ml @ 100 mls/hr 1X ONCE IV Last administered on 08/06/16 16:58; Start 08/06/16 at 16:30; Stop 08/06/16 at 16:59; Status DC Ondansetron HCl (Zofran) 4 mg PRN Q8HRS PRN IV NAUSEA/VOMITING; Start 08/06/16 at 18:15; Stop 08/07/16 at 18:14; Status DC Morphine Sulfate 4 mg PRN Q2HR PRN IV PAIN; Start 08/06/16 at 18:15; Stop 08/07 at 18:14; Status DC Acetaminophen (Tylenol) 650 mg PRN Q4HRS PRN PO FEVER Last administered on 08/07 04:02; Start 08/06/16 at 18:15; Stop 08/07/16 at 18:14; Status DC Insulin Human Regular (Novolin R Vial) 10 unit 1X ONCE IV Last administered on 08/06/16 18:40; Start 08/06/16 at 18:15; Stop 08/06/16 at 18:29; Status DC Insulin Aspart (Novolog) 0-7 UNITS TIDWMEALS SQ Last administered on 08/11/16 12:59; Start 08/07/16 at 08:00 Dextrose 12.5 gm 12.5 gm PRN Q15MIN PRN IV SEE COMMENTS; Start 08/06/16 at 18: 15 Piperacillin Sod/ Tazobactam Sod/ Sodium Chloride (Zosyn/Iv Sodium Chloride 0.9 % 50ml) 50 ml @ 100 mls/hr Q12HR IV Last administered on 08/11/16 08:58; Start 08/07/16 at 09:00 Vancomycin HCl 1 each 1X ONCE MC Last administered on 08/08/16 15:00; Start 08/08/16 at 15:00; Stop 08/08/16 at 15:01; Status DC Allopurinol (Zyloprim) 50 mg BID PO Last administered on 08/11/16 08:59; Start 08/07/16 at 09:00 Atorvastatin Calcium (Lipitor) 40 mg QHS PO Last administered on 3/20/17at 21: 04; Start 08/07/16 at 21:00 Carvedilol (Coreg) 6.26 mg BIDWMEALS PO ; Start 08/07/16 at 08:00; Stop at 12:04; Status DC Cinacalcet (Sensipar) 30 mg DAILY PO Last administered on 08/11/16 08:59; Start 08/07/16 at 09:00 Cyanocobalamin (Vitamin B-12) 5,000 mcg DAILY PO Last administered on 08:34; Start 08/07/16 at 09:00; Stop 08/09/16 at 19:14; Status DC Glimepiride (Amaryl) 4 mg DAILY PO Last administered on 08/11/16 08:59; Start 08/07/16 at 09:00 Fish Oil (Fish Oil) 1,000 mg DAILY PO Last administered on 08/09/16 08:35; Start 08/07/16 at 09:00; Stop 08/09/16 at 19:14; Status DC Vitamin D (Vitamin D3) 4,000 unit DAILY PO Last administered on 08/08/16 08:26 ; Start 08/07/16 at 09:00; Stop 08/08/16 at 11:55; Status DC Insulin Aspart (Novolog) 8 units TIDBFRMEAL SQ Last administered on 08/11/16 13:00; Start 08/07/16 at 07:30 Insulin Detemir (Levemir) 50 units QHS SQ Last administered on 08/10/16 21:15 ; Start 08/06/16 at 23:00 Ferrous Sulfate (Feosol) 325 mg [id number] PO Last administered on 08/08/16 08 :26; Start 08/07/16 at 08:00; Stop 08/09/16 at 19:14; Status DC Apixaban (Eliquis) 2.5 mg BID PO Last administered on 08/07/16 08:51; Start at 09:00; Stop 08/07/16 at 19:29; Status DC Info (Anti-Coagulation Monitoring By Pharmacy) 1 each PRN DAILY PRN MC SEE COMMENTS Last administered on 08/10/16 10:15; Start 08/06/16 at 22:15 Gabapentin (Neurontin) 100 mg QHS PO Last administered on 08/10/16 21:04; Start 08/06/16 at 23:00 Acetaminophen/ Hydrocodone Bitart (Lortab 5/325) 2 tab PRN Q4HRS PRN PO PAIN Last administered on 08/11/16 08:59; Start 08/07/16 at 07:45 Darbepoetin Lasha (Aranesp) 60 mcg WEEKLYHS SQ Last administered on 08/07/16 20 :47; Start 08/07/16 at 21:00 Carvedilol (Coreg) 3.125 mg BIDWMEALS PO Last administered on 08/11/16 09:00; Start 08/07/16 at 17:00 Acetaminophen/ Hydrocodone Bitart (Lortab 10/325) 1 tab PRN Q4HRS PRN PO MILD- MOD PAIN; Start 08/07/16 at 13:15; Stop 08/07/16 at 16:23; Status DC Insulin Aspart (Novolog) 0-9 UNITS TIDWMEALS SQ ; Start 08/07/16 at 17:00; Status UNV Dextrose 12.5 gm PRN Q15MIN PRN IV SEE COMMENTS; Start 08/07/16 at 15:30; Status UNV Info (PHARMACY MONITORING -- do not chart) 1 each PRN DAILY PRN MC SEE COMMENTS ; Start 08/08/16 at 11:30 Sevelamer Carbonate (Renvela) 2.4 gm TIDWMEALS PO Last administered on 12:00; Start 08/08/16 at 12:30 Polyethylene Glycol 17 gm 17 gm PRN DAILY PRN PO CONSTIPATION Last administered on 08/08/16 13:46; Start 08/08/16 at 12:45 Vancomycin HCl/ Sodium Chloride (Iv Sodium Chloride 0.9% 500ml Bag) 500 ml @ 250 mls/hr Q48H IV Last administered on 08/10/16 17:04; Start 08/08/16 at 17: 00 Ondansetron HCl 4 mg 4 mg PRN Q6HRS PRN IV NAUSEA/VOMITING Last administered on 08/10/16 00:44; Start 08/10/16 at 00:45; Stop 08/10/16 at 13:40; Status DC Cefazolin Sodium 50 ml @ 100 mls/hr 1X PREOP PRN IV prophylaxis Last administered on 08/10/16 11:26; Start 08/10/16 at 08:00; Stop 08/11/16 at 07:59 ; Status DC Magnesium Sulfate/ Dextrose (Magnesium Sulfate PREMIX 2GM) 50 ml @ 25 mls/hr PRN DAILY PRN IV for Mag < 1.7 on am labs; Start 08/10/16 at 09:45 Lidocaine HCl 100 mg 100 mg STK-MED ONCE .ROUTE ; Start 08/10/16 at 10:32; Stop 08/10/16 at 10:33; Status DC Propofol (Diprivan) 20 ml @ As Directed STK-MED ONCE IV ; Start 08/10/16 at 10: 32; Stop 08/10/16 at 10:33; Status DC Dexamethasone Sodium Phosphate (Decadron) 20 mg STK-MED ONCE .ROUTE ; Start at 10:32; Stop 08/10/16 at 10:33; Status DC Ondansetron HCl (Zofran) 4 mg STK-MED ONCE .ROUTE ; Start 08/10/16 at 10:32; Stop 08/10/16 at 10:33; Status DC Fentanyl Citrate 100 mcg 100 mcg STK-MED ONCE .ROUTE ; Start 08/10/16 at 10:34; Stop 08/10/16 at 10:35; Status DC Sodium Chloride (Iv Sodium Chloride 0.9% 1000ml Bag) 500 ml @ 30 mls/hr [id number] IV Last administered on 08/10/16t 10:57; Start 08/10/16 at 10:45 Lidocaine HCl 100 mg STK-MED ONCE .ROUTE ; Start 08/10/16 at 11:01; Stop at 11:02; Status DC Bupivacaine HCl/ Epinephrine Bitart (Marcaine-Epi 0.5%-1:797177) 50 ml STK-MED ONCE .ROUTE ; Start 08/10/16 at 11:11; Stop 08/10/16 at 11:12; Status DC Neomycin/ Polymyxin/ Bacitracin (Triple Antibiotic Ointment) 1 pkt STK-MED ONCE TP Last administered on 08/10/16 11:47; Start 08/10/16 at 11:45; Stop at 11:46; Status DC Bupivacaine HCl/ Epinephrine Bitart (Marcaine-Epi 0.5%-1:481077) 50 ml STK-MED ONCE IJ Last administered on 08/10/16 11:35; Start 08/10/16 at 11:35; Stop at 11:59; Status DC Albuterol Sulfate (Ventolin Neb Soln) 2.5 mg STK-MED ONCE .ROUTE ; Start at 12:21; Stop 08/10/16 at 12:22; Status DC Albuterol Sulfate (Ventolin Neb Soln) 2.5 mg 1X ONCE NEB Last administered on 08/10/16 12:37; Start 08/10/16 at 12:30; Stop 08/10/16 at 12:31; Status DC Ondansetron HCl (Zofran) 4 mg PRN Q6HRS PRN IV Nausea; Start 08/10/16 at 12:30 ; Stop 08/10/16 at 13:39; Status DC Fentanyl Citrate (Fentanyl 2ml Vial) 25 mcg PRN Q5MIN PRN IV MILD PAIN Last administered on 08/10/16 13:13; Start 08/10/16 at 12:30; Stop 08/11/16 at 12:29 ; Status DC Fentanyl Citrate (Fentanyl 2ml Vial) 50 mcg PRN Q5MIN PRN IV MODERATE PAIN; Start 08/10/16 at 12:30; Stop 08/11/16 at 12:29; Status DC Morphine Sulfate 1 mg 1 mg PRN Q10MIN PRN IV SEVERE PAIN; Start 08/10/16 at 12: 30; Stop 08/11/16 at 12:29; Status DC Lactated Ringer's (Iv Lactated Ringers) 1,000 ml @ 30 mls/hr Q24H IV ; Start at 12:30; Stop 08/11/16 at 00:29; Status DC Lidocaine HCl 2 ml 1X PRN PRN ID IV START; Start 08/10/16 at 12:30; Stop at 12:29; Status DC Hydromorphone HCl (Dilaudid) 0.5 mg PRN Q10MIN PRN IV SEV PAIN,Second choice; Start 08/10/16 at 12:30; Stop 08/11/16 at 12:29; Status DC Prochlorperazine Edisylate (Compazine) 5 mg PACU PRN PRN IV NAUSEA; Start 08/10 at 12:30; Stop 08/11/16 at 12:29; Status DC Acetaminophen (Tylenol) 650 mg PRN Q6HRS PRN PO MILD PAIN / TEMP; Start at 13:45 Ondansetron HCl (Zofran) 4 mg PRN Q6HRS PRN IV NAUSEA/VOMITING Last administered on 08/11/16 12:54; Start 08/10/16 at 13:45 Albuterol Sulfate (Ventolin Neb Soln) 2.5 mg PRN Q6HRS PRN NEB SHORTNESS OF BREATH Last administered on 08/11/16 12:23; Start 08/10/16 at 13:45 Nystatin (Mycostatin) 1 marie BID TP Last administered on 08/11/16 08:58; Start 08/10/16 at 21:00 Lanthanum Carbonate (Fosrenol) 1,000 mg TIDAFTMEAL PO Last administered on 08/11 12:54; Start 08/11/16 at 13:00 Active Scripts Active Reported Sensipar (Cinacalcet Hcl) 30 Mg Tablet 1 Tab PO DAILY Allopurinol 100 Mg Tablet 50 Mg PO BID Glimepiride 2 Mg Tablet 4 Mg PO DAILY Procrit (Epoetin Lasha) 2,000 Unit/1 Ml Vial 0 IJ [id number] Novolog (Insulin Aspart) 100 Unit/1 Ml Cartridge 8 Unit SQ TIDAC Lantus Solostar (Insulin Glargine,Hum.rec.anlog) 100 Unit/1 Ml Insuln.pen 50 Unit SQ QHS Atorvastatin Calcium 40 Mg Tablet 1 Tab PO DAILY Carvedilol 6.25 Mg Tablet 1 Tab PO BID Vitals/I & O Vital Sign - Last 24 Hours 08/10/16 08/10/16 08/10/16 08/10/16 14:39 15:39 15:57 16:21 Temp 98.0 98.0 Pulse 74 Resp 18 18 B/P 103/65 Pulse Ox 96 95 98 O2 Delivery Nasal Cannula Nasal Cannula Room Air O2 Flow Rate 2.0 2.0 08/10/16 08/10/16 08/10/16 08/10/16 17:05 19:40 19:55 21:05 Temp 98.1 98.1 Pulse 69 71 Resp 16 16 B/P 107/56 118/58 Pulse Ox 93 96 O2 Delivery Room Air Room Air Room Air O2 Flow Rate 2.0 08/10/16 08/11/16 08/11/16 08/11/16 22:57 03:57 07:00 07:54 Temp 98.0 98.6 97.5 98.0 98.6 97.5 Pulse 79 94 85 Resp 14 16 12 B/P 89/49 120/61 125/61 Pulse Ox 98 94 95 O2 Delivery Room Air Room Air Room Air Room Air 08/11/16 08/11/16 08/11/16 08/11/16 08:00 08:59 09:00 09:17 Pulse 85 Resp 18 B/P 125/61 Pulse Ox 95 94 O2 Delivery Room Air Room Air Room Air O2 Flow Rate 2.0 08/11/16 08/11/16 08/11/16 09:59 10:44 12:23 Temp 97.8 97.8 Pulse 87 Resp 18 18 B/P 127/57 Pulse Ox 94 98 95 O2 Delivery Room Air Room Air Room Air Intake and Output 08/10/16 08/10/16 08/11/16 15:00 23:00 07:00 Intake Total 10 ml 240 ml 110 ml Output Total 5 ml Balance 5 ml 240 ml 110 ml Nutrition Consultation Dietary Evaluation: Recommendations by RD: Increase Calorie Intake, Protein supplementation Comments: Novasource renal BID - 475kcal and 21.6g protein Expected Outcomes/Goals: meet >75% est nutr needs Malnutrition Findings: Weight Status: Obese Fluid Accumulation (Non-Severe: Mild depletion LING COOPER MD Aug 11, 2016 13:55
[2016-08-11] MEDS ORDERED: POLY17PO5 PO (14:04)
[2016-08-11] MEDS ORDERED: HYDR-2666 PO (14:04)
[2016-08-11] MEDS ORDERED: CARV3.122 PO (14:04)
[2016-08-11] MEDS ORDERED: SEVE2.4P PO (14:04)
[2016-08-11] MEDS ORDERED: AZIT250T6 PO (14:07)
[2016-08-11] MEDS ORDERED: APIX2.5T PO (14:16)
--- NOTE | 2016-08-11 15:07 | PATHOLOGY ---
PATHOLOGY REPORT * * * * * * * * FINAL DIAGNOSIS: Skin, right lower extremity: - Calcinosis cutis consistent with calciphylaxis. (See comment) COMMENT: Sections show epidermal necrosis as well as calcium deposits within vessel bajwa within the dermis and in the surrounding soft tissue. 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 Please correlate clinically. (SAS:[facility]; d/t: 08/11/2016) REPORT ELECTRONICALLY SIGNED BY: Mary Diaz M.D., Dermatopathologist DATE/TIME: 08/11/2016 15:06 * * * * * * * * GROSS PATHOLOGY: Received in formalin labeled "Leroy Ruiz, skin and fat biopsy right lower extremity," is a 2.9 x 0.9 x 1.0 cm ellipse of skin displaying a pink-smith and granular epidermal surface. The margins are inked black. The specimen is sectioned into nine pieces and entirely submitted in cassettes A1 through A3, with the tips placed in cassette A3. (CAA; 08/10/2016) INITIAL CPT CODE(S): A; 96820 Professional services performed by [facility], [address] [place] [address]. Technical services performed by [facility] at [address] [place] [address]. SPECIMEN(S) RECEIVED: A.Skin and fat biopsy right lower extremity CLINICAL HISTORY: Lower extremity skin lesions; r/o calciphylaxis PATIENT: LEROY RUIZ /AGE: 6 1930 (Age: 85) PATIENT #: [id number] ALT CASE #: SPECIMEN COLLECTION DATE: 08/10/2016 SPECIMEN RECEIVED DATE: 08/10/2016 [facility] - [address] [place] [address] - PHONE: [phone] * * * END OF REPORT * * *
--- NOTE | 2016-08-19 00:25 | DS ---
DATE OF DISCHARGE: 08/11/2016 CHIEF COMPLAINT: Bilateral lower extremity pain. HOSPITAL COURSE: The patient is an 85-year-old gentleman with end-stage renal disease, on peritoneal dialysis, who presented to the Emergency Room with lower extremity wounds that were quite painful. He initially was admitted with a diagnosis of cellulitis, started on broad-spectrum antibiotics. However, Dr. Danielson from surgery performed a biopsy for suspicion of calciphylaxis. Pathology report was not available at time of discharge. The patient was to follow up with his Nephrology on an outpatient basis. The patient had also been diagnosed with bronchitis without any signs of pneumonia on chest x-ray. This was treated with Pain control was achieved with [place] with mainly avoidance of IV narcotics. For all his cardiac issues, home medications were continued save for Coumadin, which was held in anticipation of surgery. He was switched to Eliquis afterwards. DISCHARGE DATE: 08/11/2016. PHYSICAL EXAMINATION: Please refer to note from same day. DISCHARGE DISPOSITION: Home with services. DISCHARGE CONDITION: Improved. DISCHARGE MEDICATIONS: Please refer to MAR. DISCHARGE INSTRUCTIONS: The patient will follow up with windshield installer this week. Greater than 30 minutes spent in arranging discharge. LING COOPER MD DR: TEODORO/nts JOB#: [id number] / [id number] NARA
== END 2016-08-11 17:29 | disposition home or self-care (01) | DRG 291 ==
LOC: ER 15:31 → CVICU 18:01 → 2 SOUTH 08-10 12:38
PROVIDERS: ADMIT Internal Medicine; ATTEND Internal Medicine
PROC: 0JBN0ZX Excision of Right Lower Leg Subcutaneous Tissue and Fascia, Open Approach, Diagnostic (ICD-10-PCS; principal; 2016-08-10 11:30)
DX: I13.2 Hypertensive heart and chronic kidney disease with heart failure and with stage 5 chronic kidney disease, or end stage renal disease (principal); N18.6 End stage renal disease; I50.23 Acute on chronic systolic (congestive) heart failure; D68.9 Coagulation defect, unspecified; E83.59 Other disorders of calcium metabolism; D64.9 Anemia, unspecified; E11.22 Type 2 diabetes mellitus with diabetic chronic kidney disease; E78.5 Hyperlipidemia, unspecified; E83.39 Other disorders of phosphorus metabolism; G47.30 Sleep apnea, unspecified; I25.10 Atherosclerotic heart disease of native coronary artery without angina pectoris; I48.2 Chronic atrial fibrillation; K21.9 Gastro-esophageal reflux disease without esophagitis; K59.00 Constipation, unspecified; E66.9 Obesity, unspecified; M10.9 Gout, unspecified; E21.3 Hyperparathyroidism, unspecified; E11.42 Type 2 diabetes mellitus with diabetic polyneuropathy; M19.90 Unspecified osteoarthritis, unspecified site; E11.65 Type 2 diabetes mellitus with hyperglycemia; Z96.642 Presence of left artificial hip joint; Z82.3 Family history of stroke; Z82.49 Family history of ischemic heart disease and other diseases of the circulatory system; Z83.3 Family history of diabetes mellitus; Z85.828 Personal history of other malignant neoplasm of skin; Z95.1 Presence of aortocoronary bypass graft; Z99.2 Dependence on renal dialysis; I25.2 Old myocardial infarction; Z90.89 Acquired absence of other organs; Z79.899 Other long term (current) drug therapy; Z68.34 Body mass index [BMI] 34.0-34.9, adult
CPT/HCPCS: 36415; 71010; 71020; 80048; 80069; 80202; 82947; 83735; 83880; 83970; 84100; 84484; 85018; 85027; 85610; 87040; 88305; 93005; 93306; 94250; 94640; 94760; 96365; 96366; 96368; 96375; C1769; J0690; J0881; J1100; J1815; J2405; J2543; J2704; J3010; J3370; J7030; J7040; 99285-25

== ENCOUNTER 2016-08-22 13:12 | Emergency (ER) | payer MEDICARE ==
[~2016-08-22] VITALS: Ht 172.7 cm; Wt 94.3 kg
[~2016-08-22 13:12] MED LIST changes: +APIX2.5T PO; +AZIT250T6 PO; +CARV3.122 PO; +CINA30TA PO; +FLUC100T7 PO; +HYDR-2666 PO; +OXYC-323 PO; +POLY17PO5 PO; +SEVE2.4P PO; +VITS56.7 TP
[2016-08-22 13:52] LABS: BASO # 0.1 x10^3/uL (0.0-0.2); BASO % 1 % (0-3); EOS % 1 % (0-3); HEMATOCRIT 25.4 % (39.0-53.0); HEMOGLOBIN 8.3 g/dL (13.0-17.5); LYMPH % 7 % (24-48); MEAN CORPUSCULAR HEMOGLOBIN 32 pg (25-35); MEAN CORPUSCULAR HGB CONC 33 g/dL (31-37); MEAN CORPUSCULAR VOLUME 98 fL (79-100); MONO % 7 % (0-9); NEUT % 85 % (31-73); PLATELET COUNT 318 x10^3/uL (140-400); RED BLOOD COUNT 2.59 x10^6/uL (4.30-5.70); WHITE BLOOD COUNT 14.7 x10^3/uL (4.0-11.0)
--- NOTE | 2016-08-22 13:55 | RAD ---
EXAM: Chest, single view. HISTORY: Fatigue. COMPARISON: 08/10/2016. FINDINGS: A frontal view of the chest is obtained. There is stable bilateral infrahilar atelectasis or scarring. There is no consolidation, effusion or pneumothorax. The heart is mildly enlarged. There are findings consistent with median sternotomy. There is a catheter within the superior cavoatrial junction. IMPRESSION: Stable suspected bilateral infrahilar atelectasis or scarring.
[2016-08-22 14:03] LABS: CALCIUM 8.6 mg/dL (8.5-10.1); CREATININE 5.7 mg/dL (0.7-1.3); GFR 9.5; POTASSIUM 5.3 mmol/L (3.5-5.1)
[2016-08-22 14:09] LABS: ALBUMIN 2.3 g/dL (3.4-5.0); DIRECT BILIRUBIN 0.1 mg/dL (0.0-0.2); TOTAL BILIRUBIN 0.4 mg/dL (0.2-1.0); TOTAL PROTEIN 6.3 g/dL (6.4-8.2)
[2016-08-22 14:59] VITALS: BP 116/56
--- NOTE | 2016-08-22 15:03 | PHYS DOC ---
Past Medical History Past Medical History: A-Fib, Diabetes-Type II, Hypertension, [place], Renal Failure , Other Additional Past Medical Histor: GOUT Past Surgical History: Coronary Bypass Surgery, Tonsillectomy, Other Additional Past Surgical Histo: LEFT HIP REPLACEMENT, peritoneal dialysis- hemodialysis Alcohol Use: Rarely Drug Use: None Adult General Chief Complaint Chief Complaint: WEAKNESS/GENERALIZED HPI HPI 85-year-old male presenting to the emergency department today with generalized weakness and right-sided blurred vision started around 12:00 today. He denies floaters. He describes a blurred vision in the middle of his vision. He has normal vision in the periphery. He denies chest pain or shortness of breath. 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 He received hemodialysis on Wednesday. He denies abdominal pain nausea or vomiting. Location right eye. Duration constant. No alleviating factors. Review of systems is negative for chest pain shortness of breath nausea vomiting abdominal pain fevers chills cough. He denies polyuria or dysuria. All other review of systems is negative unless otherwise noted in history of present illness. Review of Systems Review of Systems SEE ABOVE. Allergies Allergies Allergies Coded Allergies Type Severity Reaction Last Updated Verified No Known Medication Allergies Allergy Unknown 08/20/16 Yes Physical Exam Physical Exam Constitutional: Well developed, well nourished, no acute distress, non-toxic appearance. HENT: Normocephalic, atraumatic, bilateral external ears normal, oropharynx moist, no oral exudates, nose normal. [] Eye Exam Visual acuity: 20/70 in left eye, 20/100 in right eye. with refraction by glasses Visual dale: nl, reports central blurriness External exam: no lacerations, erythema, swelling, exophthalmos, hordeolum, or blepharitis EOMI Pupil: Equal round and reactive to light Lids nl no edema, laceration, foreign bodies Conjunctiva nl no hemorrhage Cornea, no ulcerations abrasions or foreign bodies Anterior chamber nl no cells or flare Iris nl Lens nl clear with no opacities Fundoscope: limited exam, normal without dilation. No evidence of acute venous or arterial thrombosis. Neck: Normal range of motion, no tenderness, supple, no stridor. Cardiovascular:Heart rate regular rhythm, no murmur Lungs & Thorax: Bilateral breath sounds clear to auscultation [] Abdomen: Bowel sounds normal, soft, no tenderness, no masses, no pulsatile masses. [] Skin: Warm, dry, no erythema, no rash. Back: No tenderness, no CVA tenderness. [] Extremities: No tenderness, no cyanosis, no clubbing, ROM intact, no edema. Neurologic: Alert and oriented X 3, normal motor function, normal sensory function, no focal deficits noted. Psychologic: Affect normal, judgement normal, mood normal. Current Patient Data Vital Signs Vital Signs Date Time Temp Pulse Resp B/P Pulse Ox O2 Delivery O2 Flow Rate FiO2 08/22/16 13: 97.9 82 18 109/43 95 Room Air 97.9 Lab Values Laboratory Tests Test 08/22/16 13:35 08/22/16 13:40 08/22/16 13:50 White Blood Count 14.7x10^3/uL (4.0-11.0) H Red Blood Count 2.59x10^6/uL (4.30-5.70) L Hemoglobin 8.3g/dL (13.0-17.5) L Hematocrit 25.4% (39.0-53.0) L Mean Corpuscular Volume 98fL (79-100) Mean Corpuscular Hemoglobin 32pg (25-35) Mean Corpuscular Hemoglobin Concent 33g/dL (31-37) Red Cell Distribution Width 16.0% (11.5-14.5) H Platelet Count 318x10^3/uL (140-400) Neutrophils (%) (Auto) 85% (31-73) H Lymphocytes (%) (Auto) 7% (24-48) L Monocytes (%) (Auto) 7% (0-9) Eosinophils (%) (Auto) 1% (0-3) Basophils (%) (Auto) 1% (0-3) Neutrophils # (Auto) 12.5x10^3uL (1.8-7.7) H Lymphocytes # (Auto) 1.0x10^3/uL (1.0-4.8) Monocytes # (Auto) 1.1x10^3/uL (0.0-1.1) Eosinophils # (Auto) 0.1x10^3/uL (0.0-0.7) Basophils # (Auto) 0.1x10^3/uL (0.0-0.2) Sodium Level 139mmol/L (136-145) Potassium Level 5.3mmol/L (3.5-5.1) H Chloride Level 100mmol/L (98-107) Carbon Dioxide Level 27mmol/L (21-32) Anion Gap 12 (6-14) Blood Urea Nitrogen 42mg/dL (8-26) H Creatinine 5.7mg/dL (0.7-1.3) H Estimated GFR (Cockcroft-Gault) 9.5 Glucose Level 180mg/dL (70-99) H Calcium Level 8.6mg/dL (8.5-10.1) Total Bilirubin 0.4mg/dL (0.2-1.0) Direct Bilirubin 0.1mg/dL (0.0-0.2) Aspartate Amino Transferase (AST) 17U/L (15-37) Alanine Aminotransferase (ALT) 7U/L (16-63) L Alkaline Phosphatase 88U/L (46-116) Troponin I Quantitative 0.062ng/mL (0.000-0.055) NK-Xpv-P-Type Natriuretic Peptide > 53213fn/mL (0-449) H Total Protein 6.3g/dL (6.4-8.2) L Albumin 2.3g/dL (3.4-5.0) L Lipase 90U/L (73-393) Lactic Acid Level 1.3mmol/L (0.4-2.0) Laboratory Tests 08/22/16 13:35 Laboratory Tests 08/22/16 13:40 EKG EKG [] Radiology/Procedures Radiology/Procedures [] Course & Med Decision Making Course & Med Decision Making Pertinent Labs and Imaging studies reviewed. (See chart for details) [] 85-year-old male presenting the emergency department with right eye blurriness and fatigue. Vital signs afebrile. Regular heart rate. Saturating well on room air. The patient was well-appearing. Pertinent physical exam showed a normal right eye exam with mild decrease visual acuity. On clinical examination of the eye the retina did not appear to attached as best as I could visualize, no evidence of acute arterial or venous thrombosis. Troponin was elevated just above the reference range of normal and an end-stage renal disease patient without any clinical symptoms of acute coronary syndrome. Similar to previous troponin draw. It appears chronically elevated. Workup was otherwise unremarkable including EKG chest x-ray and blood work. I discussed the case with Dr. Perry from our ophthalmology department who recommended follow-up in clinic on Wednesday. I offered admission to the patient given his significant set of medical conditions however the patient desires to go home to spend time with his family which I feel is reasonable. Family is here with the patient and is agreeable with the plan. [id number] discharge instructions and return precautions given. The patient was in discharged home to follow-up with ophthalmology on Wednesday for further evaluation workup and care. Dragon Disclaimer Dragon Disclaimer This electronic medical record was generated, in whole or in part, using a voice recognition dictation system. Departure Departure Impression: Primary Impression: Malaise Additional Impression: Blurry vision, right eye Disposition: HOME, SELF-CARE Condition: STABLE Referrals: CAITLIN STERLING MD (PCP) Patient Instructions: Eye - Blurred Vision Additional Instructions: Thank you for allowing us to participate in your care today. Followup with Dr. Perry in the office at [phone] on wednesday. If you do not have a primary care provider you can ask for a list of our primary care providers. Return to the emergency department you have any new or concerning findings. This should be evaluated by the primary care physician and any necessary consulting services for continued management within a few days after discharge. Return to emergency room if you have any new or concerning symptoms including but not limited to fever, chills, nausea, vomiting, intractable pain, any new rashes, chest pain, shortness of air, uncontrolled bleeding, difficulty breathing, and/or vision loss. Problem Qualifiers CYNDY CONDE MD Aug 22, 2016 15:03
--- NOTE | 2016-08-22 15:16 | EKG ---
[facility] [address] [place] [address] Test Date: 2016-08-22 Test Time: 14:15:33 Pat Name: HAKAN SCOTT Department: Room: Gender: M [employer]: : 1930 Requested By: CYNDY CONDE Order Number: [id number] Reading MD: Capri Rodriguez Measurements Intervals [place] Rate: 85 P: 0 MT: 274 QRS: -61 QRSD: 122 T: 139 QT: 414 QTc: 499 Interpretive Statements SINUS RHYTHM ATRIAL PREMATURE COMPLEX(ES) PROLONGED MT INTERVAL ABNORMAL LEFT AXIS DEVIATION LEFT ANTERIOR FASCICULAR BLOCK INCOMPLETE RIGHT BUNDLE BRANCH BLOCK QRS(T) CONTOUR ABNORMALITY CONSIDER ANTEROLATERAL MYOCARDIAL DAMAGE CONSIDER INFERIOR MYOCARDIAL DAMAGE T ABNORMALITY IN ANTERIOR LEADS RI6.01 Compared to ECG 08/17/2016 16:16:01 Electronically Signed On 08-23-2016 19:17:59 CDT by Capri Rodriguez
[2016-08-23] MEDS ORDERED: MUPI22OI2 TP (14:30)
== END 2016-08-22 15:44 | disposition home or self-care (01) ==
LOC: ER 13:12
DX: R53.81 Other malaise (principal); H53.8 Other visual disturbances; E11.22 Type 2 diabetes mellitus with diabetic chronic kidney disease; I12.9 Hypertensive chronic kidney disease with stage 1 through stage 4 chronic kidney disease, or unspecified chronic kidney disease; N18.9 Chronic kidney disease, unspecified; I48.91 Unspecified atrial fibrillation; M10.9 Gout, unspecified; Z94.0 Kidney transplant status; I25.2 Old myocardial infarction
CPT/HCPCS: 36415; 71010; 80048; 80076; 83605; 83690; 83880; 84484; 85027; 93005; 99285-25

== ENCOUNTER 2016-08-23 13:29 | Emergency (ER) | payer MEDICARE ==
[~2016-08-23] VITALS: Ht 172.7 cm; Wt 95.3 kg
--- NOTE | 2016-08-23 14:20 | PHYS DOC ---
Past Medical History Past Medical History: A-Fib, Diabetes-Type II, Hypertension, [place], Renal Failure , Other Additional Past Medical Histor: GOUT Past Surgical History: Coronary Bypass Surgery, Tonsillectomy, Other Additional Past Surgical Histo: LEFT HIP REPLACEMENT, peritoneal dialysis- hemodialysis Alcohol Use: Rarely Drug Use: None Adult General Chief Complaint Chief Complaint: WOUND CHECK HPI HPI 85-year-old male who was recently hospitalized for an AV fistula in his left upper arm for transition from peritoneal to hemodialysis. He notes he has a good thrill in his left upper arm. He also states that he has some sutures in his right lower leg that need to come out. However today he is most concerned about a wound on the anterior part of his scrotum as well as anterior aspect of his penis. Family states this is been there for approximately 2 weeks. He states it does cause some discomfort. [] Review of Systems Review of Systems Constitutional: Denies fever or chills [] Eyes: Denies change in visual acuity, redness, or eye pain [] HENT: Denies nasal congestion or sore throat [] Respiratory: Denies cough or shortness of breath [] Cardiovascular: No additional information not addressed in HPI [] GI: Denies abdominal pain, nausea, vomiting, bloody stools or diarrhea [] : Per history of present illness [] Musculoskeletal: Denies back pain or joint pain [] Integument: Denies rash or skin lesions [] Neurologic: Denies headache, focal weakness or sensory changes [] Endocrine: Denies polyuria or polydipsia [] Allergies Allergies Allergies Coded Allergies Type Severity Reaction Last Updated Verified No Known Medication Allergies Allergy Unknown 08/20/16 Yes Physical Exam Physical Exam Constitutional: Well developed, well nourished, no acute distress, non-toxic appearance. [] HENT: Normocephalic, atraumatic, bilateral external ears normal, oropharynx moist, no oral exudates, nose normal. [] Eyes: PERRLA, EOMI, conjunctiva normal, no discharge. [] Neck: Normal range of motion, no tenderness, supple, no stridor. [] Cardiovascular:Heart rate regular rhythm, no murmur [] Lungs & Thorax: Bilateral breath sounds clear to auscultation [] Abdomen: Bowel sounds normal, soft, no tenderness, no masses, no pulsatile masses. [] Skin: He has a small pressure ulcer on his anterior scrotum and anterior penile shaft there does not appear to be any significant surrounding erythema or evidence of abscess.. [] Back: No tenderness, no CVA tenderness. [] Extremities: Good thrill fistula left upper extremity. [] Neurologic: Alert and oriented X 3, normal motor function, normal sensory function, no focal deficits noted. [] Psychologic: Affect normal, judgement normal, mood normal. [] Current Patient Data Vital Signs Vital Signs Date Time Temp Pulse Resp B/P Pulse Ox O2 Delivery O2 Flow Rate FiO2 08/23/16 14:37 82 127/58 95 Room Air 08/23/16 14:07 14 08/23/16 13:35 98.0 98.0 EKG EKG [] Radiology/Procedures Radiology/Procedures [] Course & Med Decision Making Course & Med Decision Making Pertinent Labs and Imaging studies reviewed. (See chart for details) [ED course: Evaluation reveals an 85-year-old male with a pressure ulcer where his penis lays against his scrotum. I do feel like this and needs attention from a wound clinic but I don't think it appears particularly infected today I feel like the wound appears more chronic in nature. We have discussed the need to keep the area open to air so it can dry out and begin the healing process. I spoke with Dr. Sterling who agreed to follow-up with the patient and arrange wound care visit.] Dragon Disclaimer Dragon Disclaimer This electronic medical record was generated, in whole or in part, using a voice recognition dictation system. Departure Departure Impression: Primary Impression: Skin ulcer of groin, limited to breakdown of skin Disposition: 01 HOME, SELF-CARE Condition: STABLE Referrals: CAITLIN STERLING MD (PCP) Patient Instructions: Pressure Ulcer Additional Instructions: Follow with the wound care center as directed. Follow with Dr. Sterling to this week for recheck. Scripts Mupirocin (Mupirocin Ointment)22 Gm Oint...g.1 Katie TP TID WOUND CARE #1 TUBE Prov:JORY AYALA DO 08/23/16 JORY AYALA DO Aug 23, 2016 14:20
[2016-08-23] MEDS ORDERED: MUPI22OI2 TP (14:30)
[2016-08-23 14:37] VITALS: BP 127/58
== END 2016-08-23 15:00 | disposition home or self-care (01) ==
LOC: ER 13:29
DX: L98.491 Non-pressure chronic ulcer of skin of other sites limited to breakdown of skin (principal); E11.22 Type 2 diabetes mellitus with diabetic chronic kidney disease; N18.9 Chronic kidney disease, unspecified; I12.9 Hypertensive chronic kidney disease with stage 1 through stage 4 chronic kidney disease, or unspecified chronic kidney disease; I48.91 Unspecified atrial fibrillation; I25.2 Old myocardial infarction; M10.9 Gout, unspecified; Z95.1 Presence of aortocoronary bypass graft; Z99.2 Dependence on renal dialysis
CPT/HCPCS: 99283

== ENCOUNTER 2016-09-07 18:57 | Inpatient (IN) | payer MEDICARE ==
[~2016-09-07] VITALS: Ht 175.3 cm; Wt 98.0 kg
[~2016-09-07 18:57] MED LIST changes: +MUPI22OI2 TP; +POLY17PO29 PO; -POLY17PO5 PO; +WARF-78 PO; -WARF5TAB PO; -WARF7.5T PO; +WARF7.5T48 PO
[2016-09-07 20:46] LABS: BASO # 0.1 x10^3/uL (0.0-0.2); BASO % 1 % (0-3); EOS % 2 % (0-3); HEMATOCRIT 28.4 % (39.0-53.0); HEMOGLOBIN 9.2 g/dL (13.0-17.5); LYMPH # 0.7 x10^3/uL (1.0-4.8); LYMPH % 6 % (24-48); MEAN CORPUSCULAR HEMOGLOBIN 31 pg (25-35); MEAN CORPUSCULAR HGB CONC 32 g/dL (31-37); MEAN CORPUSCULAR VOLUME 96 fL (79-100); MONO % 5 % (0-9); NEUT % 87 % (31-73); PLATELET COUNT 292 x10^3/uL (140-400); RED BLOOD COUNT 2.95 x10^6/uL (4.30-5.70); RED CELL DISTRIBUTION WIDTH 16.4 % (11.5-14.5); WHITE BLOOD COUNT 11.8 x10^3/uL (4.0-11.0)
[2016-09-07 20:57] LABS: CALCIUM 8.7 mg/dL (8.5-10.1); CREATININE 2.9 mg/dL (0.7-1.3); GFR 20.7
[2016-09-07] MEDS ORDERED: HYDROmorphone 2 MG/ML VIAL IV ONE (21:00)
[2016-09-07] MEDS ORDERED: IV NORMAL SALINE 500ML BAG 500 ML IV ONE (21:00)
[2016-09-07] MEDS: MEROPENEM 500 MG in IV NORMAL SALINE 50ML 50 ML IV SCH (21:05)
[2016-09-07 21:22] LABS: % EOS 4 % (0-5); PLT ESTIMATE ADEQUATE (ADEQUATE)
[2016-09-07 21:23] LABS: CRENATED RBC PRESENT; OVALOCYTES OCC; POLYCHROMASIA SLIGHT
[2016-09-07] MEDS ORDERED: VANCOMYCIN 2 GM in IV NORMAL SALINE 500ML BAG 500 ML IV ONE (21:30)
[2016-09-07] MEDS ORDERED: MEROPENEM 1 GM in IV NORMAL SALINE 100ML 100 ML IV SCH (22:00)
[2016-09-07] MEDS ORDERED: ONDANSETRON PF 4 MG/2 ML VIAL. IV PRN (22:00)
[2016-09-07] MEDS: IV NORMAL SALINE 1000ML BAG 1,000 ML IV SCH (22:15)
[2016-09-07] MEDS ORDERED: POLYETHYLENE GLYCOL 3350 17 GM PACKET. PO PRN (22:30)
[2016-09-07] MEDS ORDERED: DEXTROSE 50% 25 GM / 50ML DISP.SYRIN. IV PRN (22:30)
--- NOTE | 2016-09-07 22:41 | PDOC1 ---
History and Physical Date of Admission Date of Admission DATE: 09/07/16 TIME: 22:35 Identification/Chief Complaint Chief Complaint scrotal pain Problems: Source Source: Chart review, Patient History of Present Illness History of Present Illness Mr. Ruiz was here 3 weeks ago, admit for renal failure, had calciphylaxis wound to right leg, Vascular surg to left arm. He has been doing OK at home, but has more pain and redness to his scrotum with excoriation and exudate. scrotal erythema noted by Dr. Hester from ID inpatient 3 weeks ago, family reports that s/p PO diflucan, and it has gotten worse, their PCP has been providing lidocaine jelly, and now with exudate and erythema and large area of ulceration. Mr. Ruiz has family help with his heathcare, some dementia, has not driven a car for over 3 mos, does not do his finances pain 10/31 Past Medical History Cardiovascular: HTN Renal/: Chronic renal insuff, Chronic renal failure Endocrine: Diabetes Family History Family History: Cancer, Diabetes, Hypertension, Stroke Social History Smoke: No ALCOHOL: none Drugs: None Current Medications Current Medications Current Medications Meropenem/Sodium Chloride (Merrem/Iv Sodium Chloride 0.9% 100ml) 100 ml @ 200 mls/hr Q8HRS IV ; Start 09/07/16 at 22:00; Status UNV Vancomycin HCl 1 each 1 each PRN DAILY PRN MC SEE COMMENTS; Start 09/07/16 at 20:45 Sodium Chloride (Iv Sodium Chloride 0.9% 500ml Bag) 500 ml @ 500 mls/hr 1X ONCE IV Last administered on 09/07/16 21:04; Start 09/07/16 at 21:00; Stop at 21:59; Status DC Hydromorphone HCl 1 mg 1 mg 1X ONCE IV Last administered on 09/07/16 20:59; Start 09/07/16 at 21:00; Stop 09/07/16 at 21:01; Status DC Meropenem 500 mg/ Sodium Chloride 50 ml @ 100 mls/hr QHS IV Last administered on 09/07/16 21:05; Start 09/07/16 at 21:00 Vancomycin HCl/ Sodium Chloride (Iv Sodium Chloride 0.9% 500ml Bag) 500 ml @ 250 mls/hr 1X ONCE IV Last administered on 09/07/16t 22:07; Start 09/07/16 at 21:30; Stop 09/07/16 at 23:29 Ondansetron HCl (Zofran) 4 mg PRN Q8HRS PRN IV NAUSEA/VOMITING; Start 09/07/16 at 22:00; Stop 09/08/16 at 21:59 Morphine Sulfate 4 mg 4 mg PRN Q2HR PRN IV SEVERE PAIN; Start 09/07/16 at 22:00 ; Stop 09/08/16 at 21:59 Sodium Chloride (Iv Sodium Chloride 0.9% 1000ml Bag) 1,000 ml @ 75 mls/hr [id number] IV Last administered on 09/07/16 22:15; Start 09/07/16 at 21:52; Stop 09/08/16 at 21:51 Insulin Aspart (Novolog) 0-7 UNITS TIDWMEALS SQ ; Start 09/08/16 at 08:00; Status UNV Dextrose (Dextrose 50%-Water Syringe) 12.5 gm PRN Q15MIN PRN IV SEE COMMENTS; Start 09/07/16 at 22:30; Status UNV Allopurinol (Zyloprim) 100 mg DAILY PO ; Start 09/08/16 at 09:00; Status UNV Apixaban (Eliquis) 2.5 mg DAILY PO ; Start 09/08/16 at 09:00; Status UNV Atorvastatin Calcium (Lipitor) 40 mg DAILY PO ; Start 09/08/16 at 09:00; Status UNV Carvedilol (Coreg) 3.125 mg BIDWMEALS PO ; Start 09/08/16 at 08:00; Status UNV Cinacalcet (Sensipar) 30 mg DAILY PO ; Start 09/08/16 at 09:00; Status UNV Glimepiride (Amaryl) 4 mg DAILY PO ; Start 09/08/16 at 09:00; Status UNV Acetaminophen/ Hydrocodone Bitart (Lortab 5/325) 1 tab Q6HRS PRN PO PAIN; Start 09/07/16 at 22:30; Status UNV Polyethylene Glycol (miraLAX PACKET) 17 gm PRN DAILY PRN PO CONSTIPATION; Start 09/07/16 at 22:30; Status UNV Sevelamer Carbonate (Renvela) 2.4 gm TIDWMEALS PO ; Start 09/08/16 at 08:00; Status UNV Vitamin A/Vitamin D (Vitamin A & D Ointment) 1 katie TID TP ; Start 09/08/16 at 09 :00; Status UNV Docusate Sodium (Colace) 100 mg PRN DAILY PRN PO CONSTIPATION; Start 09/07/16 at 22:45; Status UNV Docusate Sodium (Colace) 100 mg DAILY PO ; Start 09/08/16 at 09:00; Status UNV Active Scripts Active Mupirocin Ointment (Mupirocin) 22 Gm Oint...g. 1 Katie TP TID Vitamin A & D Ointment (Vits A & D/White Pet/Lanolin) 56.7 Gm Oint...g. 1 Katie TP TID Diflucan (Fluconazole) 100 Mg Tablet 100 Mg PO DAILY Allopurinol 100 Mg Tablet 100 Mg PO DAILY Hydrocodone-Apap 5-325 (Hydrocodone Bit/Acetaminophen) 1 Each Tablet 1 Tab PO Q6HRS PRN Eliquis (Apixaban) 2.5 Mg Tablet 2.5 Mg PO DAILY Renvela (Sevelamer Carbonate) 2.4 Gm Powd.pack 2.4 Gm PO TIDWMEALS Miralax (Polyethylene Glycol 3350) 17 Gm Powd.pack 17 Gm PO PRN DAILY PRN Carvedilol 3.125 Mg Tablet 3.125 Mg PO BIDWMEALS Reported Sensipar (Cinacalcet Hcl) 30 Mg Tablet 1 Tab PO DAILY Glimepiride 2 Mg Tablet 4 Mg PO DAILY Novolog (Insulin Aspart) 100 Unit/1 Ml Cartridge 8 Unit SQ TIDAC Atorvastatin Calcium 40 Mg Tablet 1 Tab PO DAILY Allergies Allergies: Coded Allergies: No Known Medication Allergies (Verified Allergy, Unknown, 08/20/16) ROS General: No: Appetite, Chills, Fatigue, Malaise, Night Sweats, Other PSYCHOLOGICAL ROS: No: Anxiety, Behavioral Disorder, Concentration difficultie , Decreased libido, Depression, Disorientation, Hallucinations, Hostility, Irritablity, Memory difficulties, Mood Swings, Obsessive thoughts, Other, Physical abuse, Sexual abuse, Sleep disturbances, Suicidal ideation Eyes: No Blurry vision, No Decreased vision, No Double vision, No Dry eyes, No Excessive tearing, No Eye Pain, No Itchy Eyes, No Loss of vision, No Other, No Photophobia, No Scotomata, No Uses contacts, No Uses glasses HEENT: No: Epistaxis, Heacaches, Hearing change, Nasal congestion, Nasal discharge, Oral lesions, Other, Sinus pain, Sneezing, Snoring, Sore Throat, Tinnitus, Vertigo, Visual Changes, Vocal changes Respiratory: YES: Cough, No: Hemoptysis, Orthopnea, Other, Pleuritic Pain, SOB with excertion, Shortness of breath, Sputum Changes, Stridor, Tachypnea, Wheezing Cardiovascular: No Chest Pain, No Edema, No Lt Headedness, No Orthopnea, No Other, No Palpitations, No Paroxysmal Noc. Dyspnea Gastrointestinal: No Abdominal Pain, No Constipation, No Diarrhea, No Hematochezia, No Melena, No Nausea, No Other, No Vomiting Genitourinary: No , No , No , No , No , No , No , No Discharge, No Dysuria, No Flank Pain, No Frequency, No Hematuria, No Incontinence, No Other, No Pain, No Retention, No Urgency Musculoskeletal: Yes Joint Pain, No Gait Disturbance, No Joint Stiffness, No Joint Swelling, No Muscle Pain, No Muscular Weakness, No Other, No Pain In:, No Swelling In: Neurological: No Behavorial Changes, No Bowel/Bladder ControlChng, No Confusion , No Dizziness, No Gait Disturbance, No Headaches, No Impaired Coord/balance, No Memory Loss, No Numbness/Tingling, No Other, No Seizures, No Speech Problems , No Tremors, No Visual Changes, No Weakness Skin: Yes Dry Skin, Yes Mottling, Yes Other, Yes Rash, Yes Skin Lesion Changes , No Acne, No Eczema, No Hair Changes, No Lumps, No Mole Changes, No Nail Changes, No Pruritus Physical Exam General: Alert, Cooperative, mild distress HEENT: Atraumatic, EOMI, Mucous membr. moist/pink Lungs: Clear to auscultation, Normal air movement Abdomen: Normal bowel sounds, Soft Rectal Exam: not examined Extremities: No cyanosis, Other (tr edema) Skin: Other (scrotal swelling, erythema and ulceration under the penis) Neuro: Normal speech, Normal tone, Cranial nerves 3-12 NL Psych/Mental Status: Mood NL Vitals Vitals Vital Signs Date Time Temp Pulse Resp B/P Pulse Ox O2 Delivery O2 Flow Rate FiO2 09/07/16 20:59 12 92 Room Air 09/07/16 20:56 87 136/62 09/07/16 19:27 98.1 98.1 Labs Labs Laboratory Tests Test 09/07/16 20:35 09/07/16 20:45 White Blood Count 11.8x10^3/uL (4.0-11.0) Red Blood Count 2.95x10^6/uL (4.30-5.70) Hemoglobin 9.2g/dL (13.0-17.5) Hematocrit 28.4% (39.0-53.0) Mean Corpuscular Volume 96fL (79-100) Mean Corpuscular Hemoglobin 31pg (25-35) Mean Corpuscular Hemoglobin Concent 32g/dL (31-37) Red Cell Distribution Width 16.4% (11.5-14.5) Platelet Count 292x10^3/uL (140-400) Neutrophils (%) (Auto) 87% (31-73) Lymphocytes (%) (Auto) 6% (24-48) Monocytes (%) (Auto) 5% (0-9) Eosinophils (%) (Auto) 2% (0-3) Basophils (%) (Auto) 1% (0-3) Neutrophils # (Auto) 10.3x10^3uL (1.8-7.7) Lymphocytes # (Auto) 0.7x10^3/uL (1.0-4.8) Monocytes # (Auto) 0.5x10^3/uL (0.0-1.1) Eosinophils # (Auto) 0.2x10^3/uL (0.0-0.7) Basophils # (Auto) 0.1x10^3/uL (0.0-0.2) Segmented Neutrophils % 88% (35-66) Lymphocytes % 5% (24-48) Monocytes % 3% (0-10) Eosinophils % 4% (0-5) Platelet Estimate Adequate (ADEQUATE) Platelet Clumps, EDTA Present Giant Platelets Occ Polychromasia Slight Ovalocytes Occ Crenated Cell Present Sodium Level 144mmol/L (136-145) Potassium Level 3.0mmol/L (3.5-5.1) Chloride Level 98mmol/L (98-107) Carbon Dioxide Level 34mmol/L (21-32) Anion Gap 12 (6-14) Blood Urea Nitrogen 19mg/dL (8-26) Creatinine 2.9mg/dL (0.7-1.3) Estimated GFR (Cockcroft-Gault) 20.7 Glucose Level 223mg/dL (70-99) Calcium Level 8.7mg/dL (8.5-10.1) Lactic Acid Level 1.3mmol/L (0.4-2.0) Laboratory Tests Test 09/07/16 20:35 09/07/16 20:45 White Blood Count 11.8x10^3/uL (4.0-11.0) Red Blood Count 2.95x10^6/uL (4.30-5.70) Hemoglobin 9.2g/dL (13.0-17.5) Hematocrit 28.4% (39.0-53.0) Mean Corpuscular Volume 96fL (79-100) Mean Corpuscular Hemoglobin 31pg (25-35) Mean Corpuscular Hemoglobin Concent 32g/dL (31-37) Red Cell Distribution Width 16.4% (11.5-14.5) Platelet Count 292x10^3/uL (140-400) Neutrophils (%) (Auto) 87% (31-73) Lymphocytes (%) (Auto) 6% (24-48) Monocytes (%) (Auto) 5% (0-9) Eosinophils (%) (Auto) 2% (0-3) Basophils (%) (Auto) 1% (0-3) Neutrophils # (Auto) 10.3x10^3uL (1.8-7.7) Lymphocytes # (Auto) 0.7x10^3/uL (1.0-4.8) Monocytes # (Auto) 0.5x10^3/uL (0.0-1.1) Eosinophils # (Auto) 0.2x10^3/uL (0.0-0.7) Basophils # (Auto) 0.1x10^3/uL (0.0-0.2) Segmented Neutrophils % 88% (35-66) Lymphocytes % 5% (24-48) Monocytes % 3% (0-10) Eosinophils % 4% (0-5) Platelet Estimate Adequate (ADEQUATE) Platelet Clumps, EDTA Present Giant Platelets Occ Polychromasia Slight Ovalocytes Occ Crenated Cell Present Sodium Level 144mmol/L (136-145) Potassium Level 3.0mmol/L (3.5-5.1) Chloride Level 98mmol/L (98-107) Carbon Dioxide Level 34mmol/L (21-32) Anion Gap 12 (6-14) Blood Urea Nitrogen 19mg/dL (8-26) Creatinine 2.9mg/dL (0.7-1.3) Estimated GFR (Cockcroft-Gault) 20.7 Glucose Level 223mg/dL (70-99) Calcium Level 8.7mg/dL (8.5-10.1) Lactic Acid Level 1.3mmol/L (0.4-2.0) VTE Prophylaxis Ordered VTE Prophylaxis Devices: Yes VTE Pharmacological Prophylaxi: No Assessment/Plan Assessment/Plan cellulitis skin ulceration scrotal lesion abx writen for by ER, will consult ID to follow Pt family requested for vascular to be made aware that patient is in the hospital ESRD, consult renal dementia, mild DM2, mod control CAD, CABG in 2004 hypokalemia, anemia of CKD FULL code, 2 daughters are here in ER, his son has DPOA paperwork, family to consider code status, FLAVIO NINO MD Sep 07, 2016 22:41
[2016-09-07] MEDS: MORPHINE SULFATE 4 MG/ML DISP.SYRIN. IV PRN (22:44)
[2016-09-07] MEDS: INSULIN ASPART 300 UNITS/3 ML INSULN.PEN SQ SCH (22:45)
[2016-09-07] MEDS ORDERED: DOCUSATE SODIUM 100 MG CAPSULE. PO PRN (22:45)
--- NOTE | 2016-09-07 22:48 | RAD ---
PROCEDURE Abdomen and pelvis CT without contrast. HISTORY Pain. TECHNIQUE Computed tomographic images of the abdomen pelvis were obtained without contrast. One or more of the following individualized dose reduction techniques were utilized for this examination: 1. Automated exposure control; 2. Adjustment of the mA and/or kV according to patient size; 3. Use of iterative reconstruction technique. COMPARISON 02/10/2005 FINDINGS Evaluation of the lower thorax demonstrates posterior dependent and basilar atelectasis. There are findings consistent with coronary artery bypass grafting. The heart is mildly enlarged. No hepatic lesion is seen. There is cholelithiasis. There are punctate calcifications within the pancreatic head and tail, possibly due to the sequela of chronic pancreatitis. There is a 2.0 cm round isodense to hypodense lesion with 4 mm eccentric calcification within the pancreatic head, difficult to characterize in the absence contrast and possibly cystic in etiology. There is similar larger isodense lesion within the proximal pancreatic body measuring 1.9 cm and small isodense lesion along the ventral aspect of the pancreatic neck possibly due to an additional lesion or lymph node. The spleen is unremarkable. The right adrenal gland is unremarkable. There is a suspected 3.8 cm left adrenal nodule superimposed on thickening of the medial limb of the left adrenal gland. There is mild renal atrophy. There is no obstructive uropathy. No abnormally thickened or dilated loop of bowel is seen. There are few distal colonic diverticula. The bladder is unremarkable. There is a percutaneous catheter or drain loops within the superior pelvis. There is a left hip arthroplasty. There is aortic and aortic branch vessel atherosclerosis. There are degenerative changes throughout the spine. There are bridging anterior osteophytes at the thoracic levels likely due to diffuse idiopathic skeletal hyperostosis. IMPRESSION 1. Colonic diverticulosis without evidence of diverticulitis. 2. Cholelithiasis. 3. Punctate calcifications within the pancreas, possibly due to the sequela of chronic pancreatitis. 4. 2.0 cm and 1.9 cm isodense to hypodense lesions within the pancreas, difficult to characterize in the absence of contrast. The possibility of cystic or solid neoplasm is not excluded. The imaging appearance does not favor pseudocysts. Correlate with pancreatic laboratory values and a pancreatic protocol CT or MRI. 5. Mild renal atrophy. 6. Percutaneous catheter or drain within the superior pelvis. 7. Stable 3.8 cm nodule or nodular thickening of the left adrenal gland. The long-term stability favors benignity. Electronically signed by: Shirlene Vasquez (Sep 07, 2016 22:47:34)
[2016-09-07] MEDS ORDERED: POTASSIUM CHLORIDE 20 MEQ TABLET.ER. PO ONE (23:00)
--- NOTE | 2016-09-07 23:22 | ACF ---
Admission Forms Criteria CELLULITIS Clinical Indications for Admission to Inpatient Care (Place 'X' for any and all applicable criteria): Admission is indicated for ANY ONE of the following(1)(2)(3)(4)(5): [ ]I. Limb-threatening infection [ ]II. High-risk comorbid condition as indicated by ANY ONE of the following: [ ]a) Uncontrolled diabetes (eg, HbA1c greater than 10% (0.1)) [ ]b) Cirrhosis [ ]c) Neutropenia [ ]d) Asplenia [ ]e) Immunosuppression [ ]f) Symptomatic heart failure [ ]III. Failure of outpatient therapy as indicated by ALL of the following: [ ]a) Progression or no improvement after adequate trial (minimum of 48 hours, with longer period for stable lower extremity infection) [ ]b) Adequate antibiotic regimen as indicated by use of ANY ONE of the following: [ ]i) First-generation cephalosporin (e.g., cephalexin) [ ]ii) Antistaphylococcal penicillin (e.g., dicloxacillin) [ ]iii) Penicillin-allergic patient regimen (clindamycin, extended-spectrum fluoroquinolone, or doxycycline) [ ]iv) Resistant organism (eg, methicillin-resistant Staphylococcus aureus) regimen (6) [ ]c) Outpatient intravenous therapy regimen is not appropriate due to ANY ONE of the following. (7)(8)(9)(10): [ ]i) It was tried and was not successful (eg, progression of infection). [ ]ii) It is not available or cannot be arranged in a clinically appropriate time frame (e.g., the next day). [ ]iii) Clinical presentation (eg, acuity of infection, rapidity of progression, confirmed or suspected bacteremia) is judged to require ALL of the following: [ ]1) Immediate initiation of intravenous therapy ( eg, cannot wait for next day) [ ]2) Intensity of patient monitoring and observation (eg, vital sign measurement, checks for infection progression) that cannot be provided at other than inpatient level of care [ ]IV. Mental status changes [ ]V. Bacteremia [ ]. Hemodynamic instability [ ]VII. Suspected necrotizing soft tissue infection (e.g., gas in tissue)(11)( 12) [ ]VIII. Orbital infection (13)(14) [ ]IX. Associated surgical procedure (e.g., abscess drainage, debridement) not amenable to outpatient, emergency department, or observation care [ ]X. Cutaneous gangrene [ ]XI. High fever (temperature greater than 39.5 degrees C (103.1 degrees F) (oral)) not responsive to outpatient, emergency department, or observation care therapy [X]XIII. Inpatient admission required rather than observation care (Also use Cellulitis: Observation Care as appropriate) because of ANY ONE of the following : [ ]a) Periorbital or perineal infection that is severe or worsening [X]b) Severe requiring acute inpatient management [ ]c) IV fluid to replace significant ongoing (e.g., for over 24 hours) losses (greater than 3L/m2 per day) [ ]d) Compartment syndrome monitoring (17) [ ]e) Strict or protective (eg, laminar flow) isolation [ ]f) Urgent debridement or skin grafting [ ]g) Bone or joint debridement [ ]h) Immediate inpatient surgery [ ]i) Other condition, treatment or monitoring requiring inpatient admission Extended stay beyond goal length of stay may be needed for (1)(18): [ ]a) Necrotizing soft tissue infection or fasciitis [ ]b) Gram-negative infection [ ]c) Methicillin-resistant Staphylococcal aureus (MRSA) infection [ ]d) Peripheral venous insufficiency with cellulitis [ ]e) Extensive edema [ ]f) Sepsis or continued Hemodynamic instability [ ]g) Continued high fever or mental status change [ ]h) Bacteremia [ ]i) Active serious comorbid conditions ( eg, heart failure, renal insufficiency) The original [employer] content created by [employer] has been revised. The portions of the content which have been revised are identified through the use of italic text or in bold, and [facility] has neither reviewed nor approved the modified material. All other unmodified content is copyright [facility] Please see references footnoted in the original [facility] edition 2016 Admission Criteria Met?: Yes MICKEY LAW Sep 07, 2016 23:22
--- NOTE | 2016-09-07 23:25 | PHYS DOC ---
Past Medical History Past Medical History: A-Fib, Diabetes-Type II, Hypertension, [place], Renal Failure , Other Additional Past Medical Histor: GOUT Past Surgical History: Coronary Bypass Surgery, Tonsillectomy, Other Additional Past Surgical Histo: LEFT HIP REPLACEMENT, peritoneal dialysis- hemodialysis Alcohol Use: Rarely Drug Use: None Adult General Chief Complaint Chief Complaint: WOUND CHECK HPI HPI This is an 85-year-old male who has history of diabetes who is been having significant pain and area of wound to his scrotal area for the last several days. Family at bedside has been applying lubricating lidocaine gel to the scrotal area for the last several days. Patient has history of suprapubic catheter placement and is in uric. He is also receiving hemodialysis to report in his chest. He has been compliant with his dialysis treatments. He was admitted several weeks ago for a right lower extremity wound infection that ultimatlely required debridement on an outpatient basis. He denies any fever or chills. He states his pain is very significant to the scrotal area despite taking his pain medications that he is prescribed. He denies any chest pain or SOB. Review of Systems Review of Systems Constitutional: Denies fever or chills [] Eyes: Denies change in visual acuity, redness, or eye pain [] HENT: Denies nasal congestion or sore throat [] Respiratory: Denies cough or shortness of breath [] Cardiovascular: No additional information not addressed in HPI [] GI: Denies abdominal pain, nausea, vomiting, bloody stools or diarrhea [] : Denies dysuria or hematuria [] Musculoskeletal: Denies back pain or joint pain [] Integument: Denies rash, has skin lesions [] Neurologic: Denies headache, focal weakness or sensory changes [] Endocrine: Denies polyuria or polydipsia [] Current Medications Current Medications Current Medications Medications (Trade) Dose Ordered Sig/Dirk Start Time Stop Time Status Last Admin Dose Admin Hydromorphone HCl 1 mg 1 mg 1X ONCE 09/07/16 21:00 09/07/16 21:01 DC 09/07/16 20:59 1 MG Meropenem/Sodium Chloride (Merrem/Iv Sodium Chloride 0.9% 50ml) 50 ml @ 100 mls/hr QHS 09/07/16 21:00 09/07/16 21:05 100 MLS/HR Sodium Chloride (Iv Sodium Chloride 0.9% 500ml Bag) 500 ml @ 500 mls/hr 1X ONCE 09/07/16 21:00 09/07/16 21:59 DC 09/07/16 21:04 500 MLS/HR Vancomycin HCl 1 each 1 each PRN DAILY PRN 09/07/16 20:45 Allergies Allergies Allergies Coded Allergies Type Severity Reaction Last Updated Verified No Known Medication Allergies Allergy Unknown 08/20/16 Yes Physical Exam Physical Exam Constitutional: Well developed, well nourished, no acute distress, non-toxic appearance. [] HENT: Normocephalic, atraumatic, bilateral external ears normal, oropharynx moist, no oral exudates, nose normal. [] Eyes: PERRLA, EOMI, conjunctiva normal, no discharge. [] Neck: Normal range of motion, no tenderness, supple, no stridor. [] Cardiovascular:Heart rate regular rhythm, no murmur [] Lungs & Thorax: Bilateral breath sounds clear to auscultation [] Abdomen: Bowel sounds normal, soft, no tenderness, no masses, no pulsatile masses. [] Skin: Warm, dry, no rash. [] : There is a open wound to the distal base of the penis and scrotal area that does appear to have some mild area of purulence as well as erythema. There is no crepitus or abscess seen Back: No tenderness, no CVA tenderness. [] Extremities: No tenderness, no cyanosis, no clubbing, ROM intact, no edema. [] Neurologic: Alert and oriented X 3, normal motor function, normal sensory function, no focal deficits noted. [] Psychologic: Affect normal, judgement normal, mood normal. [] Current Patient Data Vital Signs Vital Signs Date Time Temp Pulse Resp B/P Pulse Ox O2 Delivery O2 Flow Rate FiO2 09/07/16 20:59 12 92 Room Air 09/07/16 20:56 87 136/62 09/07/16 19:27 98.1 98.1 Lab Values Laboratory Tests Test 09/07/16 20:35 09/07/16 20:45 White Blood Count 11.8x10^3/uL (4.0-11.0) H Red Blood Count 2.95x10^6/uL (4.30-5.70) L Hemoglobin 9.2g/dL (13.0-17.5) L Hematocrit 28.4% (39.0-53.0) L Mean Corpuscular Volume 96fL (79-100) Mean Corpuscular Hemoglobin 31pg (25-35) Mean Corpuscular Hemoglobin Concent 32g/dL (31-37) Red Cell Distribution Width 16.4% (11.5-14.5) H Platelet Count 292x10^3/uL (140-400) Neutrophils (%) (Auto) 87% (31-73) H Lymphocytes (%) (Auto) 6% (24-48) L Monocytes (%) (Auto) 5% (0-9) Eosinophils (%) (Auto) 2% (0-3) Basophils (%) (Auto) 1% (0-3) Neutrophils # (Auto) 10.3x10^3uL (1.8-7.7) H Lymphocytes # (Auto) 0.7x10^3/uL (1.0-4.8) L Monocytes # (Auto) 0.5x10^3/uL (0.0-1.1) Eosinophils # (Auto) 0.2x10^3/uL (0.0-0.7) Basophils # (Auto) 0.1x10^3/uL (0.0-0.2) Segmented Neutrophils % 88% (35-66) H Lymphocytes % 5% (24-48) L Monocytes % 3% (0-10) Eosinophils % 4% (0-5) Platelet Estimate Adequate (ADEQUATE) Platelet Clumps, EDTA Present Giant Platelets Occ Polychromasia Slight Ovalocytes Occ Crenated Cell Present Sodium Level 144mmol/L (136-145) Potassium Level 3.0mmol/L (3.5-5.1) L Chloride Level 98mmol/L (98-107) Carbon Dioxide Level 34mmol/L (21-32) H Anion Gap 12 (6-14) Blood Urea Nitrogen 19mg/dL (8-26) Creatinine 2.9mg/dL (0.7-1.3) H Estimated GFR (Cockcroft-Gault) 20.7 Glucose Level 223mg/dL (70-99) H Calcium Level 8.7mg/dL (8.5-10.1) Lactic Acid Level 1.3mmol/L (0.4-2.0) Laboratory Tests 09/07/16 20:35 Laboratory Tests 09/07/16 20:35 EKG EKG [] Radiology/Procedures Radiology/Procedures TECHNIQUE Computed tomographic images of the abdomen pelvis were obtained without contrast. One or more of the following individualized dose reduction techniques were utilized for this examination: 1. Automated exposure control; 2. Adjustment of the mA and/or kV according to patient size; 3. Use of iterative reconstruction technique. COMPARISON 02/10/2005 FINDINGS Evaluation of the lower thorax demonstrates posterior dependent and basilar atelectasis. There are findings consistent with coronary artery bypass grafting. The heart is mildly enlarged. No hepatic lesion is seen. There is cholelithiasis. There are punctate calcifications within the pancreatic head and tail, possibly due to the sequela of chronic pancreatitis. There is a 2.0 cm round isodense to hypodense lesion with 4 mm eccentric calcification within the pancreatic head, difficult to characterize in the absence contrast and possibly cystic in etiology. There is similar larger isodense lesion within the proximal pancreatic body measuring 1.9 cm and small isodense lesion along the ventral aspect of the pancreatic neck possibly due to an additional lesion or lymph node. The spleen is unremarkable. The right adrenal gland is unremarkable. There is a suspected 3.8 cm left adrenal nodule superimposed on thickening of the medial limb of the left adrenal gland. There is mild renal atrophy. There is no obstructive uropathy. No abnormally thickened or dilated loop of bowel is seen. There are few distal colonic diverticula. The bladder is unremarkable. There is a percutaneous catheter or drain loops within the superior pelvis. There is a left hip arthroplasty. There is aortic and aortic branch vessel atherosclerosis. There are degenerative changes throughout the spine. There are bridging anterior osteophytes at the thoracic levels likely due to diffuse idiopathic skeletal hyperostosis. IMPRESSION 1. Colonic diverticulosis without evidence of diverticulitis. 2. Cholelithiasis. 3. Punctate calcifications within the pancreas, possibly due to the sequela of chronic pancreatitis. 4. 2.0 cm and 1.9 cm isodense to hypodense lesions within the pancreas, difficult to characterize in the absence of contrast. The possibility of cystic or solid neoplasm is not excluded. The imaging appearance does not favor pseudocysts. Correlate with pancreatic laboratory values and a pancreatic protocol CT or MRI. 5. Mild renal atrophy. 6. Percutaneous catheter or drain within the superior pelvis. 7. Stable 3.8 cm nodule or nodular thickening of the left adrenal gland. The long-term stability favors benignity. Electronically signed by: Shirlene Vasquez (Sep 07, 2016 22:47:34) Course & Med Decision Making Course & Med Decision Making Pertinent Labs and Imaging studies reviewed. (See chart for details) 85-year-old history of diabetes with ongoing scrotal wound infection will be admitted. IV antibiotics were given. Laboratory workup shows a slightly elevated ABC count 1.8. His serum lactate was normal. His renal function is near baseline. Patient was given pain medications and fluids. I discussed the need to admit the patient for worrisome scrotal infection in light of the fact that he has poor wound healing he is at risk for serious gangrenous infection. A CT of his abdomen and pelvis without contrast did not demonstrate any acute findings but was limited due to not being able to use IV contrast. A urology consult was placed and the patient was admitted without incident. I discussed the need to admit the patient with the hospitalist, Dr. Adan, who agreed to accept the patient for further evaluation and treatment. Dragon Disclaimer Dragon Disclaimer This electronic medical record was generated, in whole or in part, using a voice recognition dictation system. Departure Departure Impression: Primary Impression: Open wound of scrotum Disposition: ADMITTED INPATIENT Admitting Physician: Mireya Adan Condition: STABLE Referrals: CAITLIN STERLING MD (PCP) ALE RUFFIN DO Sep 07, 2016 23:25
[2016-09-08] VITALS (7 sets, daily range): BP systolic 98–140; BP diastolic 50–63
[2016-09-08] MEDS: MORPHINE SULFATE 4 MG/ML DISP.SYRIN. IV PRN ×4 (00:20→21:12)
[2016-09-08] MEDS: MEROPENEM 500 MG in IV NORMAL SALINE 50ML 50 ML IV SCH (00:35)
[2016-09-08] MEDS: ANTI-COAG MONITOR BY PHARMACY. MC PRN (02:30)
[2016-09-08] MEDS: VANCOMYCIN PER PHARMACY MC PRN ×2 (02:31→10:50)
[2016-09-08 06:22] LABS: BASO % 1 % (0-3); EOS % 1 % (0-3); HEMATOCRIT 26.5 % (39.0-53.0); HEMOGLOBIN 8.7 g/dL (13.0-17.5); LYMPH # 0.7 x10^3/uL (1.0-4.8); LYMPH % 7 % (24-48); MEAN CORPUSCULAR HEMOGLOBIN 31 pg (25-35); MEAN CORPUSCULAR HGB CONC 33 g/dL (31-37); MEAN CORPUSCULAR VOLUME 96 fL (79-100); MONO % 6 % (0-9); NEUT % 85 % (31-73); PLATELET COUNT 253 x10^3/uL (140-400); RED BLOOD COUNT 2.77 x10^6/uL (4.30-5.70); RED CELL DISTRIBUTION WIDTH 16.2 % (11.5-14.5); WHITE BLOOD COUNT 10.3 x10^3/uL (4.0-11.0)
[2016-09-08 06:35] LABS: MAGNESIUM 1.7 mg/dL (1.8-2.4); PHOSPHORUS 3.4 mg/dL (2.6-4.7)
[2016-09-08 06:43] LABS: % SAT IRON 20 % (15-34); IRON,SERUM 31 ug/dL (65-175)
[2016-09-08 06:44] LABS: ALBUMIN 2.1 g/dL (3.4-5.0); ALBUMIN/GLOBULIN RATIO 0.5 (1.0-1.7); CALCIUM 8.7 mg/dL (8.5-10.1); CREATININE 3.7 mg/dL (0.7-1.3); GFR 15.6; POTASSIUM 3.5 mmol/L (3.5-5.1); TOTAL BILIRUBIN 0.4 mg/dL (0.2-1.0); TOTAL PROTEIN 6.6 g/dL (6.4-8.2)
[2016-09-08] MEDS: CINACALCET HCL 30 MG TABLET PO SCH (07:59)
[2016-09-08] MEDS: DOCUSATE SODIUM 100 MG CAPSULE. PO SCH (07:59)
[2016-09-08] MEDS: GLIMEPIRIDE 2 MG TABLET. PO SCH (07:59)
[2016-09-08] MEDS: ALLOPURINOL 100 MG TABLET. PO SCH (07:59)
[2016-09-08] MEDS ORDERED: SEVELAMER CARBONATE 2.4 GM PACKET. PO SCH (08:00)
[2016-09-08] MEDS: CARVEDILOL 3.125 MG TABLET. PO SCH ×2 (08:00→17:00)
[2016-09-08] MEDS: HYDROcodone/APAP 5/325MG 1 TAB TABLET PO PRN ×2 (08:00→18:10)
[2016-09-08] MEDS ORDERED: INSULIN ASPART 300 UNITS/3 ML INSULN.PEN SQ SCH (08:00)
--- NOTE | 2016-09-08 08:09 | PDOC ---
Infectious Disease Note ROS ROS GEN: Denies fevers, chills, sweats HEENT: Denies blurred vision, sore throat CV: Denies chest pain RESP: Denies shortness of air, cough GI: Denies n/v/d NEURO: Denies confusion, dizziness MSK: Denies weakness, joint pain/swelling Vital Sign Vital Signs Vital Signs Date Time Temp Pulse Resp B/P Pulse Ox O2 Delivery O2 Flow Rate FiO2 09/08/16 04:11 20 92 Room Air 09/08/16 03:00 97.9 60 132/52 97.9 Physical Exam PHYSICAL EXAM GENERAL: NAD, Alert HEENT: PERRL, OC/OP NECK: Supple, no JVD, no LN LUNGS: Clear HEART: S1S2, no gallop, no murmur ABD: Soft, NT, no organomegaly, no rebound EXT: No edema, no cyanosis [employer]: Alert, oriented x 3, no focal neurologic deficit SKIN: No rash IV: ok Labs Lab Laboratory Tests Test 09/07/16 20:35 09/07/16 20:45 09/08/16 00:35 09/08/16 06:00 White Blood Count 11.8x10^3/uL (4.0-11.0) 10.3x10^3/uL (4.0-11.0) Red Blood Count 2.95x10^6/uL (4.30-5.70) 2.77x10^6/uL (4.30-5.70) Hemoglobin 9.2g/dL (13.0-17.5) 8.7g/dL (13.0-17.5) Hematocrit 28.4% (39.0-53.0) 26.5% (39.0-53.0) Mean Corpuscular Volume 96fL (79-100) 96fL (79-100) Mean Corpuscular Hemoglobin 31pg (25-35) 31pg (25-35) Mean Corpuscular Hemoglobin Concent 32g/dL (31-37) 33g/dL (31-37) Red Cell Distribution Width 16.4% (11.5-14.5) 16.2% (11.5-14.5) Platelet Count 292x10^3/uL (140-400) 253x10^3/uL (140-400) Neutrophils (%) (Auto) 87% (31-73) 85% (31-73) Lymphocytes (%) (Auto) 6% (24-48) 7% (24-48) Monocytes (%) (Auto) 5% (0-9) 6% (0-9) Eosinophils (%) (Auto) 2% (0-3) 1% (0-3) Basophils (%) (Auto) 1% (0-3) 1% (0-3) Neutrophils # (Auto) 10.3x10^3uL (1.8-7.7) 8.7x10^3uL (1.8-7.7) Lymphocytes # (Auto) 0.7x10^3/uL (1.0-4.8) 0.7x10^3/uL (1.0-4.8) Monocytes # (Auto) 0.5x10^3/uL (0.0-1.1) 0.6x10^3/uL (0.0-1.1) Eosinophils # (Auto) 0.2x10^3/uL (0.0-0.7) 0.1x10^3/uL (0.0-0.7) Basophils # (Auto) 0.1x10^3/uL (0.0-0.2) 0.0x10^3/uL (0.0-0.2) Segmented Neutrophils % 88% (35-66) Lymphocytes % 5% (24-48) Monocytes % 3% (0-10) Eosinophils % 4% (0-5) Platelet Estimate Adequate (ADEQUATE) Platelet Clumps, EDTA Present Giant Platelets Occ Polychromasia Slight Ovalocytes Occ Crenated Cell Present Sodium Level 144mmol/L (136-145) 144mmol/L (136-145) Potassium Level 3.0mmol/L (3.5-5.1) 3.5mmol/L (3.5-5.1) Chloride Level 98mmol/L (98-107) 99mmol/L (98-107) Carbon Dioxide Level 34mmol/L (21-32) 30mmol/L (21-32) Anion Gap 12 (6-14) 15 (6-14) Blood Urea Nitrogen 19mg/dL (8-26) 26mg/dL (8-26) Creatinine 2.9mg/dL (0.7-1.3) 3.7mg/dL (0.7-1.3) Estimated GFR (Cockcroft-Gault) 20.7 15.6 Glucose Level 223mg/dL (70-99) 311mg/dL (70-99) Calcium Level 8.7mg/dL (8.5-10.1) 8.7mg/dL (8.5-10.1) Lactic Acid Level 1.3mmol/L (0.4-2.0) Glucose (Fingerstick) 270mg/dL (70-99) Erythrocyte Sedimentation Rate 115 (0-15) BUN/Creatinine Ratio 7 (6-20) Ionized Calcium 1.02mmol/L (1.13-1.32) Phosphorus Level 3.4mg/dL (2.6-4.7) Magnesium Level 1.7mg/dL (1.8-2.4) Iron Level 31ug/dL (65-175) Total Iron Binding Capacity 152ug/dL (250-450) Iron Saturation 20% (15-34) Total Bilirubin 0.4mg/dL (0.2-1.0) Aspartate Amino Transf (AST/SGOT) 11U/L (15-37) Alanine Aminotransferase (ALT/SGPT) 12U/L (16-63) Alkaline Phosphatase 91U/L (46-116) Total Protein 6.6g/dL (6.4-8.2) Albumin 2.1g/dL (3.4-5.0) Albumin/Globulin Ratio 0.5 (1.0-1.7) Objective Assessment Scrotal wound Scrotal cellulitis 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 Pancreatic lesions on CT Plan Plan of Care Cont Vanc Add Zosyn/fluconazole Await eval F/u labs local wound care to RLE ? Pancreatic lesions per Primary D/w daughter Thank you # [phone] NURIA VELEZ MD Sep 08, 2016 08:09
[2016-09-08] MEDS: INSULIN ASPART 300 UNITS/3 ML INSULN.PEN SQ SCH ×6 (08:21→21:07)
[2016-09-08] MEDS: VITS A & D/LANOLIN TOPICAL OINTMENT 56GM TUBE. TP SCH ×3 (08:21→21:07)
--- NOTE | 2016-09-08 08:31 | PDOC2 ---
CONSULT Date of Consult Date of Consult DATE: 09/08/16 TIME: 08:30 Reason for Consult Reason for Consult: ESRD Referring Physician Referring Physician: Dr Stevens Identification/Chief Complaint Chief Complaint Scrotal Pain Problems: Source Source: Caregiver, Chart review, Patient History of Present Illness Reason for Visit: as dictated Past Medical History Cardiovascular: HTN Renal/: Chronic renal insuff, Chronic renal failure Endocrine: Diabetes Family History Family History: Cancer, Diabetes, Hypertension, Stroke Social History No ALCOHOL: none Drugs: None Lives: with Family Domestic Violence: Neg Current Problem List Problem List Problems Medical Problems: (1) Open wound of scrotum Status: Acute Current Medications Current Medications Current Medications Meropenem/Sodium Chloride (Merrem/Iv Sodium Chloride 0.9% 100ml) 100 ml @ 200 mls/hr Q8HRS IV ; Start 09/07/16 at 22:00; Status UNV Vancomycin HCl 1 each 1 each PRN DAILY PRN MC SEE COMMENTS Last administered on 09/08/16 02:31; Start 09/07/16 at 20:45 Sodium Chloride (Iv Sodium Chloride 0.9% 500ml Bag) 500 ml @ 500 mls/hr 1X ONCE IV Last administered on 09/07/16 21:04; Start 09/07/16 at 21:00; Stop at 21:59; Status DC Hydromorphone HCl 1 mg 1 mg 1X ONCE IV Last administered on 09/07/16 20:59; Start 09/07/16 at 21:00; Stop 09/07/16 at 21:01; Status DC Meropenem 500 mg/ Sodium Chloride 50 ml @ 100 mls/hr QHS IV Last administered on 09/07/16 21:05; Start 09/07/16 at 21:00; Stop 09/08/16 at 07:59; Status DC Vancomycin HCl/ Sodium Chloride (Iv Sodium Chloride 0.9% 500ml Bag) 500 ml @ 250 mls/hr 1X ONCE IV Last administered on 09/07/16 22:07; Start 09/07/16 at 21:30; Stop 09/07/16 at 23:29; Status DC Ondansetron HCl (Zofran) 4 mg PRN Q8HRS PRN IV NAUSEA/VOMITING Last administered on 09/07/16 22:43; Start 09/07/16 at 22:00; Stop 09/08/16 at 21:59 Morphine Sulfate 4 mg 4 mg PRN Q2HR PRN IV SEVERE PAIN Last administered on 03:41; Start 09/07/16 at 22:00; Stop 09/08/16 at 21:59 Sodium Chloride (Iv Sodium Chloride 0.9% 1000ml Bag) 1,000 ml @ 75 mls/hr [id number] IV Last administered on 09/07/16 22:15; Start 09/07/16 at 21:52; Stop 09/08/16 at 21:51 Insulin Aspart (Novolog) 0-7 UNITS TIDWMEALS SQ ; Start 09/08/16 at 08:00; Stop 09/08/16 at 08:00; Status DC Dextrose (Dextrose 50%-Water Syringe) 12.5 gm PRN Q15MIN PRN IV SEE COMMENTS; Start 09/07/16 at 22:30 Allopurinol (Zyloprim) 100 mg DAILY PO Last administered on 09/08/16 07:59; Start 09/08/16 at 09:00 Apixaban (Eliquis) 2.5 mg DAILY PO Last administered on 09/08/16 07:59; Start 09/08/16 at 09:00 Atorvastatin Calcium (Lipitor) 40 mg QHS PO ; Start 09/08/16 at 21:00 Carvedilol (Coreg) 3.125 mg BIDWMEALS PO Last administered on 09/08/16 08:00; Start 09/08/16 at 08:00 Cinacalcet (Sensipar) 30 mg DAILY PO Last administered on 09/08/16 07:59; Start 09/08/16 at 09:00 Glimepiride (Amaryl) 4 mg DAILY PO Last administered on 09/08/16 07:59; Start 09/08/16 at 09:00 Acetaminophen/ Hydrocodone Bitart (Lortab 5/325) 1 tab PRN Q6HRS PRN PO SEVERE PAIN Last administered on 09/08/16 08:00; Start 09/07/16 at 22:30 Polyethylene Glycol (miraLAX PACKET) 17 gm PRN DAILY PRN PO CONSTIPATION; Start 09/07/16 at 22:30 Sevelamer Carbonate (Renvela) 2.4 gm TIDWMEALS PO Last administered on 07:59; Start 09/08/16 at 08:00 Vitamin A/Vitamin D (Vitamin A & D Ointment) 1 katie TID TP ; Start 09/08/16 at 09 :00 Docusate Sodium (Colace) 100 mg PRN DAILY PRN PO CONSTIPATION; Start 09/07/16 at 22:45 Docusate Sodium (Colace) 100 mg DAILY PO Last administered on 09/08/16 07:59; Start 09/08/16 at 09:00 Potassium Chloride (Klor-Con) 20 meq 1X ONCE PO Last administered on 01:38; Start 09/07/16 at 23:00; Stop 09/07/16 at 23:01; Status DC Insulin Aspart (Novolog) 0-7 UNITS QIDACHS SQ Last administered on 09/08/16 08 :21; Start 09/07/16 at 22:45 Info (Anti-Coagulation Monitoring By Pharmacy) 1 each PRN DAILY PRN MC SEE COMMENTS Last administered on 09/08/16 02:30; Start 09/07/16 at 23:45 Vancomycin HCl 1 each 1 each 1X ONCE MC ; Start 09/11/16 at 21:30; Stop at 21:31 Vancomycin HCl 1.5 gm/Sodium Chloride 500 ml @ 250 mls/hr Q48H IV ; Start 09/09 at 22:00 Piperacillin Sod/ Tazobactam Sod/ Sodium Chloride (Zosyn/Iv Sodium Chloride 0.9 % 50ml) 50 ml @ 100 mls/hr Q8HRS IV ; Start 09/08/16 at 08:30 Fluconazole (Diflucan) 100 mg DAILY PO ; Start 09/08/16 at 09:00 Active Scripts Active Mupirocin Ointment (Mupirocin) 22 Gm Oint...g. 1 Katie TP TID Vitamin A & D Ointment (Vits A & D/White Pet/Lanolin) 56.7 Gm Oint...g. 1 Katie TP TID Diflucan (Fluconazole) 100 Mg Tablet 100 Mg PO DAILY Allopurinol 100 Mg Tablet 100 Mg PO DAILY Hydrocodone-Apap 5-325 (Hydrocodone Bit/Acetaminophen) 1 Each Tablet 1 Tab PO Q6HRS PRN Eliquis (Apixaban) 2.5 Mg Tablet 2.5 Mg PO DAILY Renvela (Sevelamer Carbonate) 2.4 Gm Powd.pack 2.4 Gm PO TIDWMEALS Miralax (Polyethylene Glycol 3350) 17 Gm Powd.pack 17 Gm PO PRN DAILY PRN Carvedilol 3.125 Mg Tablet 3.125 Mg PO BIDWMEALS Reported Sensipar (Cinacalcet Hcl) 30 Mg Tablet 1 Tab PO DAILY Glimepiride 2 Mg Tablet 4 Mg PO DAILY Novolog (Insulin Aspart) 100 Unit/1 Ml Cartridge 8 Unit SQ TIDAC Atorvastatin Calcium 40 Mg Tablet 1 Tab PO DAILY Allergies Allergies: Coded Allergies: No Known Medication Allergies (Verified Allergy, Unknown, 08/20/16) ROS Review of System GEN: no Fevers no Chills EYES: no new Visual Complaints ENT: no EN Drainage no Hearing deficiets CVS: no Orthopnea no CP RESP: no SOB no LOCO GI: no Nausea no Vomiting Dec PO Intake : no Dysuria no Urgency + ve scrotal pain HEME: no easy bruising no Palp Ly Nodes NEURO no Focal Weakness no Sz PSYCH: no Suicidal Ideation ? Depression SKIN: + Calciphylaxis Rashes ENDO: no Polyuria or Polydipsia no Hot/Cold Intolerance MU SK: occ Arthraigia no Myalgia Physical Exam Physical Exam General Appearance: Awake Alert Oriented x 3 In min Distress ( Scrotal pain) Eyes: VIsion Unchanged Conjunctiva Normal EN: No EN Drainage Mucous Memb. moist Neck: no JVD no JVP Supple no Thyromegaly CVS: S1 S2 ? Murmur No Gallop No Rub no Edema Resp: no Rales no Rhonchi no Acc. Muscle use GI: BAS +ve NO Bruit Non Tender Non Distended : no CVA tenderness; no Suprapubic Tenderness Erythema/ tenderness under Penis SKIN: ? Calciphylaxis Rashes Breast Exam deferred Mu.Sk: Adequate ROM min Muscle Atrophy Heme: Unable to palpate Obvious LAD no palp Splenomegaly NEURO: Good Strength and Tone Cranial Nerves II - XII grossly intact Psych: not Depressed no Active hallucination Vital Signs Vital Signs Date Time Temp Pulse Resp B/P Pulse Ox O2 Delivery O2 Flow Rate FiO2 09/08/16 08:00 Room Air 09/08/16 08:00 95 140/63 09/08/16 04:11 20 92 09/08/16 03:00 97.9 97.9 Assessment & Plan ESRD: Current FLuid and E-lyte status does not necessitate emergent need for Dialysis. Will re-evaluate for Dialysis in am and continue on MWF schedule. Anemia: Epogen as ordere Transfuse with next HD as needed. HTN: Current BP meds reviewed. See orders for changes. 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 Scrotal Cellulitis - await URO eval SEv Hypoalbuminemia - ? FTT (some due to wounds and prior PD) - liberalize diet Discussed Plan of Care and prognosis etc. at length with family (daughter) Labs Labs Laboratory Tests Test 09/07/16 20:35 09/07/16 20:45 09/08/16 00:35 09/08/16 06:00 White Blood Count 11.8x10^3/uL (4.0-11.0) 10.3x10^3/uL (4.0-11.0) Red Blood Count 2.95x10^6/uL (4.30-5.70) 2.77x10^6/uL (4.30-5.70) Hemoglobin 9.2g/dL (13.0-17.5) 8.7g/dL (13.0-17.5) Hematocrit 28.4% (39.0-53.0) 26.5% (39.0-53.0) Mean Corpuscular Volume 96fL (79-100) 96fL (79-100) Mean Corpuscular Hemoglobin 31pg (25-35) 31pg (25-35) Mean Corpuscular Hemoglobin Concent 32g/dL (31-37) 33g/dL (31-37) Red Cell Distribution Width 16.4% (11.5-14.5) 16.2% (11.5-14.5) Platelet Count 292x10^3/uL (140-400) 253x10^3/uL (140-400) Neutrophils (%) (Auto) 87% (31-73) 85% (31-73) Lymphocytes (%) (Auto) 6% (24-48) 7% (24-48) Monocytes (%) (Auto) 5% (0-9) 6% (0-9) Eosinophils (%) (Auto) 2% (0-3) 1% (0-3) Basophils (%) (Auto) 1% (0-3) 1% (0-3) Neutrophils # (Auto) 10.3x10^3uL (1.8-7.7) 8.7x10^3uL (1.8-7.7) Lymphocytes # (Auto) 0.7x10^3/uL (1.0-4.8) 0.7x10^3/uL (1.0-4.8) Monocytes # (Auto) 0.5x10^3/uL (0.0-1.1) 0.6x10^3/uL (0.0-1.1) Eosinophils # (Auto) 0.2x10^3/uL (0.0-0.7) 0.1x10^3/uL (0.0-0.7) Basophils # (Auto) 0.1x10^3/uL (0.0-0.2) 0.0x10^3/uL (0.0-0.2) Segmented Neutrophils % 88% (35-66) Lymphocytes % 5% (24-48) Monocytes % 3% (0-10) Eosinophils % 4% (0-5) Platelet Estimate Adequate (ADEQUATE) Platelet Clumps, EDTA Present Giant Platelets Occ Polychromasia Slight Ovalocytes Occ Crenated Cell Present Sodium Level 144mmol/L (136-145) 144mmol/L (136-145) Potassium Level 3.0mmol/L (3.5-5.1) 3.5mmol/L (3.5-5.1) Chloride Level 98mmol/L (98-107) 99mmol/L (98-107) Carbon Dioxide Level 34mmol/L (21-32) 30mmol/L (21-32) Anion Gap 12 (6-14) 15 (6-14) Blood Urea Nitrogen 19mg/dL (8-26) 26mg/dL (8-26) Creatinine 2.9mg/dL (0.7-1.3) 3.7mg/dL (0.7-1.3) Estimated GFR (Cockcroft-Gault) 20.7 15.6 Glucose Level 223mg/dL (70-99) 311mg/dL (70-99) Calcium Level 8.7mg/dL (8.5-10.1) 8.7mg/dL (8.5-10.1) Lactic Acid Level 1.3mmol/L (0.4-2.0) Glucose (Fingerstick) 270mg/dL (70-99) Erythrocyte Sedimentation Rate 115 (0-15) BUN/Creatinine Ratio 7 (6-20) Ionized Calcium 1.02mmol/L (1.13-1.32) Phosphorus Level 3.4mg/dL (2.6-4.7) Magnesium Level 1.7mg/dL (1.8-2.4) Iron Level 31ug/dL (65-175) Total Iron Binding Capacity 152ug/dL (250-450) Iron Saturation 20% (15-34) Total Bilirubin 0.4mg/dL (0.2-1.0) Aspartate Amino Transf (AST/SGOT) 11U/L (15-37) Alanine Aminotransferase (ALT/SGPT) 12U/L (16-63) Alkaline Phosphatase 91U/L (46-116) Total Protein 6.6g/dL (6.4-8.2) Albumin 2.1g/dL (3.4-5.0) Albumin/Globulin Ratio 0.5 (1.0-1.7) Test 09/08/16 07:09 Glucose (Fingerstick) 307mg/dL (70-99) Laboratory Tests Test 09/07/16 20:35 09/07/16 20:45 09/08/16 00:35 09/08/16 06:00 White Blood Count 11.8x10^3/uL (4.0-11.0) 10.3x10^3/uL (4.0-11.0) Red Blood Count 2.95x10^6/uL (4.30-5.70) 2.77x10^6/uL (4.30-5.70) Hemoglobin 9.2g/dL (13.0-17.5) 8.7g/dL (13.0-17.5) Hematocrit 28.4% (39.0-53.0) 26.5% (39.0-53.0) Mean Corpuscular Volume 96fL (79-100) 96fL (79-100) Mean Corpuscular Hemoglobin 31pg (25-35) 31pg (25-35) Mean Corpuscular Hemoglobin Concent 32g/dL (31-37) 33g/dL (31-37) Red Cell Distribution Width 16.4% (11.5-14.5) 16.2% (11.5-14.5) Platelet Count 292x10^3/uL (140-400) 253x10^3/uL (140-400) Neutrophils (%) (Auto) 87% (31-73) 85% (31-73) Lymphocytes (%) (Auto) 6% (24-48) 7% (24-48) Monocytes (%) (Auto) 5% (0-9) 6% (0-9) Eosinophils (%) (Auto) 2% (0-3) 1% (0-3) Basophils (%) (Auto) 1% (0-3) 1% (0-3) Neutrophils # (Auto) 10.3x10^3uL (1.8-7.7) 8.7x10^3uL (1.8-7.7) Lymphocytes # (Auto) 0.7x10^3/uL (1.0-4.8) 0.7x10^3/uL (1.0-4.8) Monocytes # (Auto) 0.5x10^3/uL (0.0-1.1) 0.6x10^3/uL (0.0-1.1) Eosinophils # (Auto) 0.2x10^3/uL (0.0-0.7) 0.1x10^3/uL (0.0-0.7) Basophils # (Auto) 0.1x10^3/uL (0.0-0.2) 0.0x10^3/uL (0.0-0.2) Segmented Neutrophils % 88% (35-66) Lymphocytes % 5% (24-48) Monocytes % 3% (0-10) Eosinophils % 4% (0-5) Platelet Estimate Adequate (ADEQUATE) Platelet Clumps, EDTA Present Giant Platelets Occ Polychromasia Slight Ovalocytes Occ Crenated Cell Present Sodium Level 144mmol/L (136-145) 144mmol/L (136-145) Potassium Level 3.0mmol/L (3.5-5.1) 3.5mmol/L (3.5-5.1) Chloride Level 98mmol/L (98-107) 99mmol/L (98-107) Carbon Dioxide Level 34mmol/L (21-32) 30mmol/L (21-32) Anion Gap 12 (6-14) 15 (6-14) Blood Urea Nitrogen 19mg/dL (8-26) 26mg/dL (8-26) Creatinine 2.9mg/dL (0.7-1.3) 3.7mg/dL (0.7-1.3) Estimated GFR (Cockcroft-Gault) 20.7 15.6 Glucose Level 223mg/dL (70-99) 311mg/dL (70-99) Calcium Level 8.7mg/dL (8.5-10.1) 8.7mg/dL (8.5-10.1) Lactic Acid Level 1.3mmol/L (0.4-2.0) Glucose (Fingerstick) 270mg/dL (70-99) Erythrocyte Sedimentation Rate 115 (0-15) BUN/Creatinine Ratio 7 (6-20) Ionized Calcium 1.02mmol/L (1.13-1.32) Phosphorus Level 3.4mg/dL (2.6-4.7) Magnesium Level 1.7mg/dL (1.8-2.4) Iron Level 31ug/dL (65-175) Total Iron Binding Capacity 152ug/dL (250-450) Iron Saturation 20% (15-34) Total Bilirubin 0.4mg/dL (0.2-1.0) Aspartate Amino Transf (AST/SGOT) 11U/L (15-37) Alanine Aminotransferase (ALT/SGPT) 12U/L (16-63) Alkaline Phosphatase 91U/L (46-116) Total Protein 6.6g/dL (6.4-8.2) Albumin 2.1g/dL (3.4-5.0) Albumin/Globulin Ratio 0.5 (1.0-1.7) Test 09/08/16 07:09 Glucose (Fingerstick) 307mg/dL (70-99) Images Images 1. Colonic diverticulosis without evidence of diverticulitis. 2. Cholelithiasis. 3. Punctate calcifications within the pancreas, possibly due to the sequela of chronic pancreatitis. 4. 2.0 cm and 1.9 cm isodense to hypodense lesions within the pancreas, difficult to characterize in the absence of contrast. The possibility of cystic or solid neoplasm is not excluded. The imaging appearance does not favor pseudocysts. Correlate with pancreatic laboratory values and a pancreatic protocol CT or MRI. 5. Mild renal atrophy. 6. Percutaneous catheter or drain within the superior pelvis. 7. Stable 3.8 cm nodule or nodular thickening of the left adrenal gland. The long-term stability favors benignity. FILIPPO RODRIGUES MD Sep 08, 2016 08:31
[2016-09-08] MEDS ORDERED: APIXABAN 2.5 MG TABLET. PO SCH (09:00)
[2016-09-08] MEDS: PIPERACILLIN/TAZOBACTAM 2.25 GM in IV NORMAL SALINE 50ML 50 ML IV SCH ×3 (09:49→21:05)
[2016-09-08] MEDS: FLUCONAZOLE 100 MG TABLET. PO SCH (09:49)
[2016-09-08] MEDS: SEVELAMER CARBONATE 800 MG TABLET. PO SCH ×2 (12:50→18:11)
[2016-09-08] MEDS: IV NORMAL SALINE 1000ML BAG 1,000 ML IV SCH (12:56)
[2016-09-08] MEDS: LORazepam 0.5 MG TABLET PO PRN (14:12)
--- NOTE | 2016-09-08 14:17 | PDOC ---
PROGRESS NOTES Chief Complaint Chief Complaint cellulitis, w. skin ulceration of scrotal lesion ESRD, dementia, mild DM2, mod control CAD, CABG in 2004 hypokalemia, anemia of CKD History of Present Illness History of Present Illness vanc, zosyn, fluconazole wound RN consult pending, may need freq dressing change, wound care Vitals Vitals Vital Signs Date Time Temp Pulse Resp B/P Pulse Ox O2 Delivery O2 Flow Rate FiO2 09/08/16 12:52 Room Air 09/08/16 11:00 99.0 84 16 109/54 96 99.0 Physical Exam General: Alert, Cooperative, No acute distress Heart: No murmurs Lungs: Clear Abdomen: Normal bowel sounds, Soft Extremities: No cyanosis, Other (tr edema) Skin: Other (scrotal swelling, erythema and ulceration under the penis) Labs LABS Laboratory Tests Test 09/07/16 20:35 09/07/16 20:45 09/08/16 00:35 09/08/16 06:00 White Blood Count 11.8x10^3/uL (4.0-11.0) 10.3x10^3/uL (4.0-11.0) Red Blood Count 2.95x10^6/uL (4.30-5.70) 2.77x10^6/uL (4.30-5.70) Hemoglobin 9.2g/dL (13.0-17.5) 8.7g/dL (13.0-17.5) Hematocrit 28.4% (39.0-53.0) 26.5% (39.0-53.0) Mean Corpuscular Volume 96fL (79-100) 96fL (79-100) Mean Corpuscular Hemoglobin 31pg (25-35) 31pg (25-35) Mean Corpuscular Hemoglobin Concent 32g/dL (31-37) 33g/dL (31-37) Red Cell Distribution Width 16.4% (11.5-14.5) 16.2% (11.5-14.5) Platelet Count 292x10^3/uL (140-400) 253x10^3/uL (140-400) Neutrophils (%) (Auto) 87% (31-73) 85% (31-73) Lymphocytes (%) (Auto) 6% (24-48) 7% (24-48) Monocytes (%) (Auto) 5% (0-9) 6% (0-9) Eosinophils (%) (Auto) 2% (0-3) 1% (0-3) Basophils (%) (Auto) 1% (0-3) 1% (0-3) Neutrophils # (Auto) 10.3x10^3uL (1.8-7.7) 8.7x10^3uL (1.8-7.7) Lymphocytes # (Auto) 0.7x10^3/uL (1.0-4.8) 0.7x10^3/uL (1.0-4.8) Monocytes # (Auto) 0.5x10^3/uL (0.0-1.1) 0.6x10^3/uL (0.0-1.1) Eosinophils # (Auto) 0.2x10^3/uL (0.0-0.7) 0.1x10^3/uL (0.0-0.7) Basophils # (Auto) 0.1x10^3/uL (0.0-0.2) 0.0x10^3/uL (0.0-0.2) Segmented Neutrophils % 88% (35-66) Lymphocytes % 5% (24-48) Monocytes % 3% (0-10) Eosinophils % 4% (0-5) Platelet Estimate Adequate (ADEQUATE) Platelet Clumps, EDTA Present Giant Platelets Occ Polychromasia Slight Ovalocytes Occ Crenated Cell Present Sodium Level 144mmol/L (136-145) 144mmol/L (136-145) Potassium Level 3.0mmol/L (3.5-5.1) 3.5mmol/L (3.5-5.1) Chloride Level 98mmol/L (98-107) 99mmol/L (98-107) Carbon Dioxide Level 34mmol/L (21-32) 30mmol/L (21-32) Anion Gap 12 (6-14) 15 (6-14) Blood Urea Nitrogen 19mg/dL (8-26) 26mg/dL (8-26) Creatinine 2.9mg/dL (0.7-1.3) 3.7mg/dL (0.7-1.3) Estimated GFR (Cockcroft-Gault) 20.7 15.6 Glucose Level 223mg/dL (70-99) 311mg/dL (70-99) Calcium Level 8.7mg/dL (8.5-10.1) 8.7mg/dL (8.5-10.1) Lactic Acid Level 1.3mmol/L (0.4-2.0) Glucose (Fingerstick) 270mg/dL (70-99) Erythrocyte Sedimentation Rate 115 (0-15) BUN/Creatinine Ratio 7 (6-20) Ionized Calcium 1.02mmol/L (1.13-1.32) Phosphorus Level 3.4mg/dL (2.6-4.7) Magnesium Level 1.7mg/dL (1.8-2.4) Iron Level 31ug/dL (65-175) Total Iron Binding Capacity 152ug/dL (250-450) Iron Saturation 20% (15-34) Total Bilirubin 0.4mg/dL (0.2-1.0) Aspartate Amino Transf (AST/SGOT) 11U/L (15-37) Alanine Aminotransferase (ALT/SGPT) 12U/L (16-63) Alkaline Phosphatase 91U/L (46-116) Total Protein 6.6g/dL (6.4-8.2) Albumin 2.1g/dL (3.4-5.0) Albumin/Globulin Ratio 0.5 (1.0-1.7) Vitamin B12 Level 1226pg/mL (247-911) Test 09/08/16 07:09 09/08/16 11:43 Glucose (Fingerstick) 307mg/dL (70-99) 282mg/dL (70-99) Assessment and Plan Assessmemt and Plan Problems Medical Problems: (1) Open wound of scrotum Status: Acute Problems: Comment Review of Relevant I have reviewed the following items robert (where applicable) has been applied. Labs Laboratory Tests Test 09/07/16 20:35 09/07/16 20:45 09/08/16 00:35 09/08/16 06:00 White Blood Count 11.8x10^3/uL (4.0-11.0) 10.3x10^3/uL (4.0-11.0) Red Blood Count 2.95x10^6/uL (4.30-5.70) 2.77x10^6/uL (4.30-5.70) Hemoglobin 9.2g/dL (13.0-17.5) 8.7g/dL (13.0-17.5) Hematocrit 28.4% (39.0-53.0) 26.5% (39.0-53.0) Mean Corpuscular Volume 96fL (79-100) 96fL (79-100) Mean Corpuscular Hemoglobin 31pg (25-35) 31pg (25-35) Mean Corpuscular Hemoglobin Concent 32g/dL (31-37) 33g/dL (31-37) Red Cell Distribution Width 16.4% (11.5-14.5) 16.2% (11.5-14.5) Platelet Count 292x10^3/uL (140-400) 253x10^3/uL (140-400) Neutrophils (%) (Auto) 87% (31-73) 85% (31-73) Lymphocytes (%) (Auto) 6% (24-48) 7% (24-48) Monocytes (%) (Auto) 5% (0-9) 6% (0-9) Eosinophils (%) (Auto) 2% (0-3) 1% (0-3) Basophils (%) (Auto) 1% (0-3) 1% (0-3) Neutrophils # (Auto) 10.3x10^3uL (1.8-7.7) 8.7x10^3uL (1.8-7.7) Lymphocytes # (Auto) 0.7x10^3/uL (1.0-4.8) 0.7x10^3/uL (1.0-4.8) Monocytes # (Auto) 0.5x10^3/uL (0.0-1.1) 0.6x10^3/uL (0.0-1.1) Eosinophils # (Auto) 0.2x10^3/uL (0.0-0.7) 0.1x10^3/uL (0.0-0.7) Basophils # (Auto) 0.1x10^3/uL (0.0-0.2) 0.0x10^3/uL (0.0-0.2) Segmented Neutrophils % 88% (35-66) Lymphocytes % 5% (24-48) Monocytes % 3% (0-10) Eosinophils % 4% (0-5) Platelet Estimate Adequate (ADEQUATE) Platelet Clumps, EDTA Present Giant Platelets Occ Polychromasia Slight Ovalocytes Occ Crenated Cell Present Sodium Level 144mmol/L (136-145) 144mmol/L (136-145) Potassium Level 3.0mmol/L (3.5-5.1) 3.5mmol/L (3.5-5.1) Chloride Level 98mmol/L (98-107) 99mmol/L (98-107) Carbon Dioxide Level 34mmol/L (21-32) 30mmol/L (21-32) Anion Gap 12 (6-14) 15 (6-14) Blood Urea Nitrogen 19mg/dL (8-26) 26mg/dL (8-26) Creatinine 2.9mg/dL (0.7-1.3) 3.7mg/dL (0.7-1.3) Estimated GFR (Cockcroft-Gault) 20.7 15.6 Glucose Level 223mg/dL (70-99) 311mg/dL (70-99) Calcium Level 8.7mg/dL (8.5-10.1) 8.7mg/dL (8.5-10.1) Lactic Acid Level 1.3mmol/L (0.4-2.0) Glucose (Fingerstick) 270mg/dL (70-99) Erythrocyte Sedimentation Rate 115 (0-15) BUN/Creatinine Ratio 7 (6-20) Ionized Calcium 1.02mmol/L (1.13-1.32) Phosphorus Level 3.4mg/dL (2.6-4.7) Magnesium Level 1.7mg/dL (1.8-2.4) Iron Level 31ug/dL (65-175) Total Iron Binding Capacity 152ug/dL (250-450) Iron Saturation 20% (15-34) Total Bilirubin 0.4mg/dL (0.2-1.0) Aspartate Amino Transf (AST/SGOT) 11U/L (15-37) Alanine Aminotransferase (ALT/SGPT) 12U/L (16-63) Alkaline Phosphatase 91U/L (46-116) Total Protein 6.6g/dL (6.4-8.2) Albumin 2.1g/dL (3.4-5.0) Albumin/Globulin Ratio 0.5 (1.0-1.7) Vitamin B12 Level 1226pg/mL (247-911) Test 09/08/16 07:09 09/08/16 11:43 Glucose (Fingerstick) 307mg/dL (70-99) 282mg/dL (70-99) Laboratory Tests Test 09/07/16 20:35 09/07/16 20:45 09/08/16 00:35 09/08/16 06:00 White Blood Count 11.8x10^3/uL (4.0-11.0) 10.3x10^3/uL (4.0-11.0) Red Blood Count 2.95x10^6/uL (4.30-5.70) 2.77x10^6/uL (4.30-5.70) Hemoglobin 9.2g/dL (13.0-17.5) 8.7g/dL (13.0-17.5) Hematocrit 28.4% (39.0-53.0) 26.5% (39.0-53.0) Mean Corpuscular Volume 96fL (79-100) 96fL (79-100) Mean Corpuscular Hemoglobin 31pg (25-35) 31pg (25-35) Mean Corpuscular Hemoglobin Concent 32g/dL (31-37) 33g/dL (31-37) Red Cell Distribution Width 16.4% (11.5-14.5) 16.2% (11.5-14.5) Platelet Count 292x10^3/uL (140-400) 253x10^3/uL (140-400) Neutrophils (%) (Auto) 87% (31-73) 85% (31-73) Lymphocytes (%) (Auto) 6% (24-48) 7% (24-48) Monocytes (%) (Auto) 5% (0-9) 6% (0-9) Eosinophils (%) (Auto) 2% (0-3) 1% (0-3) Basophils (%) (Auto) 1% (0-3) 1% (0-3) Neutrophils # (Auto) 10.3x10^3uL (1.8-7.7) 8.7x10^3uL (1.8-7.7) Lymphocytes # (Auto) 0.7x10^3/uL (1.0-4.8) 0.7x10^3/uL (1.0-4.8) Monocytes # (Auto) 0.5x10^3/uL (0.0-1.1) 0.6x10^3/uL (0.0-1.1) Eosinophils # (Auto) 0.2x10^3/uL (0.0-0.7) 0.1x10^3/uL (0.0-0.7) Basophils # (Auto) 0.1x10^3/uL (0.0-0.2) 0.0x10^3/uL (0.0-0.2) Segmented Neutrophils % 88% (35-66) Lymphocytes % 5% (24-48) Monocytes % 3% (0-10) Eosinophils % 4% (0-5) Platelet Estimate Adequate (ADEQUATE) Platelet Clumps, EDTA Present Giant Platelets Occ Polychromasia Slight Ovalocytes Occ Crenated Cell Present Sodium Level 144mmol/L (136-145) 144mmol/L (136-145) Potassium Level 3.0mmol/L (3.5-5.1) 3.5mmol/L (3.5-5.1) Chloride Level 98mmol/L (98-107) 99mmol/L (98-107) Carbon Dioxide Level 34mmol/L (21-32) 30mmol/L (21-32) Anion Gap 12 (6-14) 15 (6-14) Blood Urea Nitrogen 19mg/dL (8-26) 26mg/dL (8-26) Creatinine 2.9mg/dL (0.7-1.3) 3.7mg/dL (0.7-1.3) Estimated GFR (Cockcroft-Gault) 20.7 15.6 Glucose Level 223mg/dL (70-99) 311mg/dL (70-99) Calcium Level 8.7mg/dL (8.5-10.1) 8.7mg/dL (8.5-10.1) Lactic Acid Level 1.3mmol/L (0.4-2.0) Glucose (Fingerstick) 270mg/dL (70-99) Erythrocyte Sedimentation Rate 115 (0-15) BUN/Creatinine Ratio 7 (6-20) Ionized Calcium 1.02mmol/L (1.13-1.32) Phosphorus Level 3.4mg/dL (2.6-4.7) Magnesium Level 1.7mg/dL (1.8-2.4) Iron Level 31ug/dL (65-175) Total Iron Binding Capacity 152ug/dL (250-450) Iron Saturation 20% (15-34) Total Bilirubin 0.4mg/dL (0.2-1.0) Aspartate Amino Transf (AST/SGOT) 11U/L (15-37) Alanine Aminotransferase (ALT/SGPT) 12U/L (16-63) Alkaline Phosphatase 91U/L (46-116) Total Protein 6.6g/dL (6.4-8.2) Albumin 2.1g/dL (3.4-5.0) Albumin/Globulin Ratio 0.5 (1.0-1.7) Vitamin B12 Level 1226pg/mL (247-911) Test 09/08/16 07:09 09/08/16 11:43 Glucose (Fingerstick) 307mg/dL (70-99) 282mg/dL (70-99) Medications Current Medications Meropenem/Sodium Chloride (Merrem/Iv Sodium Chloride 0.9% 100ml) 100 ml @ 200 mls/hr Q8HRS IV ; Start 09/07/16 at 22:00; Status UNV Vancomycin HCl 1 each 1 each PRN DAILY PRN MC SEE COMMENTS Last administered on 09/08/16 10:50; Start 09/07/16 at 20:45 Sodium Chloride (Iv Sodium Chloride 0.9% 500ml Bag) 500 ml @ 500 mls/hr 1X ONCE IV Last administered on 09/07/16 21:04; Start 09/07/16 at 21:00; Stop at 21:59; Status DC Hydromorphone HCl 1 mg 1 mg 1X ONCE IV Last administered on 09/07/16 20:59; Start 09/07/16 at 21:00; Stop 09/07/16 at 21:01; Status DC Meropenem 500 mg/ Sodium Chloride 50 ml @ 100 mls/hr QHS IV Last administered on 09/07/16 21:05; Start 09/07/16 at 21:00; Stop 09/08/16 at 07:59; Status DC Vancomycin HCl/ Sodium Chloride (Iv Sodium Chloride 0.9% 500ml Bag) 500 ml @ 250 mls/hr 1X ONCE IV Last administered on 09/07/16 22:07; Start 09/07/16 at 21:30; Stop 09/07/16 at 23:29; Status DC Ondansetron HCl (Zofran) 4 mg PRN Q8HRS PRN IV NAUSEA/VOMITING Last administered on 09/07/16 22:43; Start 09/07/16 at 22:00; Stop 09/08/16 at 21:59 Morphine Sulfate 4 mg 4 mg PRN Q2HR PRN IV SEVERE PAIN Last administered on 12:52; Start 09/07/16 at 22:00; Stop 09/08/16 at 21:59 Sodium Chloride (Iv Sodium Chloride 0.9% 1000ml Bag) 1,000 ml @ 75 mls/hr [id number] IV Last administered on 09/08/16 12:56; Start 09/07/16 at 21:52; Stop 09/08/16 at 21:51 Insulin Aspart (Novolog) 0-7 UNITS TIDWMEALS SQ ; Start 09/08/16 at 08:00; Stop 09/08/16 at 08:00; Status DC Dextrose (Dextrose 50%-Water Syringe) 12.5 gm PRN Q15MIN PRN IV SEE COMMENTS; Start 09/07/16 at 22:30 Allopurinol (Zyloprim) 100 mg DAILY PO Last administered on 09/08/16 07:59; Start 09/08/16 at 09:00 Apixaban (Eliquis) 2.5 mg DAILY PO Last administered on 09/08/16 07:59; Start 09/08/16 at 09:00; Stop 09/08/16 at 10:43; Status DC Atorvastatin Calcium (Lipitor) 40 mg QHS PO ; Start 09/08/16 at 21:00 Carvedilol (Coreg) 3.125 mg BIDWMEALS PO Last administered on 09/08/16 08:00; Start 09/08/16 at 08:00 Cinacalcet (Sensipar) 30 mg DAILY PO Last administered on 09/08/16 07:59; Start 09/08/16 at 09:00 Glimepiride (Amaryl) 4 mg DAILY PO Last administered on 09/08/16 07:59; Start 09/08/16 at 09:00 Acetaminophen/ Hydrocodone Bitart (Lortab 5/325) 1 tab PRN Q6HRS PRN PO SEVERE PAIN Last administered on 09/08/16 08:00; Start 09/07/16 at 22:30 Polyethylene Glycol (miraLAX PACKET) 17 gm PRN DAILY PRN PO CONSTIPATION; Start 09/07/16 at 22:30 Sevelamer Carbonate (Renvela) 2.4 gm TIDWMEALS PO Last administered on 07:59; Start 09/08/16 at 08:00; Stop 09/08/16 at 12:01; Status DC Vitamin A/Vitamin D (Vitamin A & D Ointment) 1 katie TID TP ; Start 09/08/16 at 09 :00 Docusate Sodium (Colace) 100 mg PRN DAILY PRN PO CONSTIPATION; Start 09/07/16 at 22:45 Docusate Sodium (Colace) 100 mg DAILY PO Last administered on 09/08/16 07:59; Start 09/08/16 at 09:00 Potassium Chloride (Klor-Con) 20 meq 1X ONCE PO Last administered on 01:38; Start 09/07/16 at 23:00; Stop 09/07/16 at 23:01; Status DC Insulin Aspart (Novolog) 0-7 UNITS QIDACHS SQ Last administered on 09/08/16 12 :56; Start 09/07/16 at 22:45 Info (Anti-Coagulation Monitoring By Pharmacy) 1 each PRN DAILY PRN MC SEE COMMENTS Last administered on 09/08/16 02:30; Start 09/07/16 at 23:45 Vancomycin HCl 1 each 1 each 1X ONCE MC ; Start 09/11/16 at 21:30; Stop at 21:30; Status DC Vancomycin HCl 1.5 gm/Sodium Chloride 500 ml @ 250 mls/hr Q48H IV ; Start 09/09 at 22:00; Stop 09/09/16 at 22:00; Status DC Piperacillin Sod/ Tazobactam Sod/ Sodium Chloride (Zosyn/Iv Sodium Chloride 0.9 % 50ml) 50 ml @ 100 mls/hr Q8HRS IV Last administered on 09/08/16 09:49; Start 09/08/16 at 08:30 Fluconazole (Diflucan) 100 mg DAILY PO Last administered on 09/08/16 09:49; Start 09/08/16 at 09:00 Darbepoetin Lasha (Aranesp) 60 mcg WEEKLYHS SQ ; Start 09/08/16 at 21:00 Apixaban (Eliquis) 2.5 mg BID PO ; Start 09/08/16 at 21:00 Vancomycin HCl 1 each 1X ONCE MC ; Start 09/09/16 at 06:00; Stop 09/09/16 at 06 :01 Sevelamer Carbonate (Renvela) 2,400 mg TIDWMEALS PO Last administered on 12:50; Start 09/08/16 at 12:00 Insulin Aspart (Novolog) 8 units TIDAC SQ Last administered on 09/08/16 12:55 ; Start 09/08/16 at 12:00 Lorazepam (Ativan) 0.5 mg PRN Q6HRS PRN PO ANXIETY / AGITATION; Start 09/08/16 at 13:00 Active Scripts Active Mupirocin Ointment (Mupirocin) 22 Gm Oint...g. 1 Katie TP TID Vitamin A & D Ointment (Vits A & D/White Pet/Lanolin) 56.7 Gm Oint...g. 1 Katie TP TID Diflucan (Fluconazole) 100 Mg Tablet 100 Mg PO DAILY Allopurinol 100 Mg Tablet 100 Mg PO DAILY Hydrocodone-Apap 5-325 (Hydrocodone Bit/Acetaminophen) 1 Each Tablet 1 Tab PO Q6HRS PRN Eliquis (Apixaban) 2.5 Mg Tablet 2.5 Mg PO DAILY Renvela (Sevelamer Carbonate) 2.4 Gm Powd.pack 2.4 Gm PO TIDWMEALS Miralax (Polyethylene Glycol 3350) 17 Gm Powd.pack 17 Gm PO PRN DAILY PRN Carvedilol 3.125 Mg Tablet 3.125 Mg PO BIDWMEALS Reported Sensipar (Cinacalcet Hcl) 30 Mg Tablet 1 Tab PO DAILY Glimepiride 2 Mg Tablet 4 Mg PO DAILY Novolog (Insulin Aspart) 100 Unit/1 Ml Cartridge 8 Unit SQ TIDAC Atorvastatin Calcium 40 Mg Tablet 1 Tab PO DAILY Vitals/I & O Vital Sign - Last 24 Hours 09/07/16 09/07/16 09/07/16 09/07/16 19:27 19:54 20:24 20:56 Temp 98.1 98.1 Pulse 91 108 106 87 Resp 22 B/P 109/48 148/58 108/48 136/62 Pulse Ox 95 92 89 O2 Delivery Room Air Room Air Room Air 09/07/16 09/07/16 09/07/16 09/08/16 20:59 22:44 23:06 00:20 Pulse 93 Resp 12 18 12 20 B/P 146/64 Pulse Ox 92 93 97 97 O2 Delivery Room Air Room Air Room Air 09/08/16 09/08/16 09/08/16 09/08/16 00:31 03:00 03:41 04:11 Temp 98.1 97.9 98.1 97.9 Pulse 97 60 Resp 18 18 20 20 B/P 125/50 132/52 Pulse Ox 91 95 92 92 O2 Delivery Room Air Room Air Room Air Room Air 09/08/16 09/08/16 09/08/16 09/08/16 07:00 08:00 08:00 08:15 Temp 98.9 98.9 Pulse 95 95 Resp 18 B/P 140/63 140/63 Pulse Ox 95 O2 Delivery Room Air Room Air Room Air 09/08/16 09/08/16 09/08/16 09:00 11:00 12:52 Temp 99.0 99.0 Pulse 84 Resp 16 B/P 109/54 Pulse Ox 96 O2 Delivery Room Air Room Air Room Air Intake and Output 09/07/16 09/07/16 09/08/16 15:00 23:00 07:00 Intake Total 550 ml 100 ml Output Total 0 ml Balance 550 ml 100 ml FLAVIO NINO MD Sep 08, 2016 14:17
--- NOTE | 2016-09-08 15:43 | PDOC ---
Provider Note Provider Note Vascular Surgery Consult 85 year old male with ESRD on peritoneal dialysis. He has a left brachiobasilic fistula placed [address] Lutz with symptoms of left hand weakness and pain consistent with steal syndrome (symptoms since fistula surgery). The left antecubital incision is healing well with no signs of infection and the fistula has a thrill. The patient is not needing the fistula since on peritoneal dialysis. I discussed with Dr. Hester and we feel it best to ligate the fistula at this time and try to improve his hand symptoms. Will schedule for surgery tomorrow. HILDA MERIDA MD Sep 08, 2016 15:43
[2016-09-08] MEDS: APIXABAN 2.5 MG TABLET. PO SCH (21:05)
[2016-09-08] MEDS: ATORVASTATIN CALCIUM 40 MG TABLET. PO SCH (21:05)
[2016-09-08] MEDS: DARBEPOETIN ALFA 60 MCG/0.3 ML DISP.SYRIN. SQ SCH (21:06)
--- NOTE | 2016-09-08 23:52 | CONS ---
DATE OF CONSULTATION: 09/08/2016 ROOM: 430. REQUESTING PHYSICIAN: Dr. Adan. REASON FOR CONSULTATION: Scrotal excoriation. HISTORY OF PRESENT ILLNESS: The patient is a pleasant 85-year-old gentleman with history of chronic renal failure on peritoneal dialysis initially, but now has been transitioned to hemodialysis. He does have a hemodialysis catheter in his right chest area. He was recently diagnosed with calciphylaxis and underwent biopsy of the right lower extremity, has a chronic wound there and that is not causing much complication. For the past 4 weeks or so, the patient is having complications with scrotal excoriation and pain. Initially, he was treated with oral fluconazole and in the outpatient setting has been using topical lidocaine jelly for the pain. However, the pain becomes so worse that he had to re-present to [facility]. He has not had any fevers, chills or sweats. No headaches, sore throat, cough or chest pain. Appetite is okay and he is just having increased pain. He was admitted to the hospital and given vancomycin and a dose of meropenem. PAST MEDICAL HISTORY: Positive for chronic kidney disease, on peritoneal dialysis, now is transferring to hemodialysis. History of calciphylaxis, hypertension, chronic atrial fibrillation, hyperlipidemia, coronary artery disease with previous myocardial infarction, history of gout, chronic anemia, type 2 diabetes, and osteoarthritis. PAST SURGICAL HISTORY: Positive for coronary artery bypass grafting, left hip replacement, cataract surgery, peritoneal dialysis catheter placement, right chest hemodialysis catheter placement, right leg biopsy and tonsillectomy. REVIEW OF SYSTEMS: Otherwise negative except as mentioned above. ALLERGIES: No antibiotic allergies. SOCIAL HISTORY: Lives with his family. No alcohol, no drugs, no tobacco. FAMILY HISTORY: Positive for cancer, diabetes, hypertension and stroke. CURRENT MEDICATIONS: Meropenem, vancomycin, allopurinol, Eliquis, Lipitor, Coreg, Sensipar, Colace, insulin, and glimepiride. Other meds are available and reviewed in the chart. PHYSICAL EXAMINATION: VITAL SIGNS: He is afebrile, temperature is 97.9, pulse 60, respirations 20, satting ____ on room air and blood pressure 132/52. CONSTITUTIONAL: He is pleasant. He is cooperative. He is in no acute distress. He is sitting upright in bed. HEENT: Pupils are status post cataract surgery. Normal conjunctivae. Oral cavity, pharynx is clear. NECK: Supple, no JVD. LUNGS: Clear to auscultation bilaterally. HEART: S1, S2, right chest hemodialysis catheter without signs of complications. ABDOMEN: Mildly obese, soft, nontender with a PD catheter in place. EXTREMITIES: No clubbing, cyanosis, no gross edema. His right lower extremity wound has an area of scabbing, but no signs of gross infection. Scrotal area, on the anterior aspect of the scrotum and the penile shaft, there is areas of excoriation, erythema, is very tender to minimal odor, no gross purulence. SKIN: Otherwise without signs of rash. NEUROLOGIC: He is nonfocal and appropriate. Affect is appropriate. LABORATORY DATA: White count was 11.8 on presentation currently at 10.7, hemoglobin 8.7, platelets of 253, segs 85. Sed rate was 115, glucose this morning was 311. AST 11, ALT 12. CT scan abdomen and pelvis without contrast has a questionable cystic or solid neoplasm not excluded. There is an isodense hypodense lesions in the pancreas, stable nodular thickening in the left adrenal gland. IMPRESSION: 1. Scrotal groove. 2. Scrotal cellulitis. 3. Chronic kidney disease on hemodialysis. 4. Leukocytosis, better. 5. Right lower extremity wound, calciphylaxis. 6. Diabetes. 7. Abnormal questionable pancreatic lesions on CT. RECOMMENDATIONS: We will continue vancomycin, add Zosyn and fluconazole. Await evaluation, follow up labs, local wound care to right lower extremity, questionable pancreatic lesions per primary. Thank you for allowing us to participate in the patient's care. If you have any questions, please do not hesitate to contact me. This was discussed with his daughter. NURIA VELEZ MD DR: TIFFANY/raghu JOB#: [id number] / [id number]
[2016-09-09] MEDS: HYDROcodone/APAP 5/325MG 1 TAB TABLET PO PRN ×3 (00:15→21:22)
--- NOTE | 2016-09-09 01:01 | CONS ---
DATE OF CONSULTATION: 09/08/2016 CHIEF COMPLAINT: Penile - scrotal cellulitis. HISTORY OF PRESENT ILLNESS: An 85-year-old male, diabetic, states he has had this wound on the ventral aspect of the penis and scrotum for 3-4 weeks. The family was treating it at home. The cellulitis progressed and therefore he presented to the hospital. He denies trauma. He has not had a Stevenson catheter. PAST MEDICAL HISTORY: The patient is a type 2 diabetic; history of renal failure, is currently on dialysis; history of atrial fibrillation; gout. PAST SURGICAL HISTORY: The patient has had coronary artery bypass surgery, tonsillectomy, left hip replacement. ALLERGIES: No known drug allergies. PHYSICAL EXAMINATION: GENERAL DESCRIPTION: An 85-year-old male who is alert and oriented. ABDOMEN: Obese, negative for flank pain bilaterally. He denies tenderness to the touch. There is no suprapubic tenderness. GENITALIA: The patient has a lesion on the ventral aspect of the penis midshaft. There is some dressing on this wound. There is also a wound in the same general area on the scrotum. There is no active bleeding. There is currently a dressing. EXTREMITIES: Negative for cyanosis or edema. LABORATORY STUDIES: The patient's white blood cell count 10.3, hemoglobin 8.7, hematocrit 26.5, platelet count is adequate. The patient's glucose is in the high 200s, low 300s. Urinalysis not on chart. X-RAY STUDIES: CT scan of the abdomen and pelvis shows mild renal atrophy. Hemodialysis catheter in the superior pelvis. No free air noted in the pelvis. IMPRESSION: Penile/scrotal cellulitis. SUGGESTIONS: 1. I agree with aggressive antibiotic therapy as lined out by Dr. Franklin. 2. A wound nurse for dressing changes. 3. Consult the wound doctor to see if hyperbaric oxygen therapy could play a role in treatment of this lesion. 4. I do not think debridement is indicated at this point, but will continue to follow. Thank you for the opportunity to participate in evaluation of this patient. DANO HORNE DO DR: JOBY/raghu JOB#: [id number] / [id number]
[2016-09-09] MEDS: MORPHINE SULFATE 4 MG/ML DISP.SYRIN. IV PRN ×4 (01:13→20:37)
[2016-09-09 03:10] VITALS: BP 97/51
--- NOTE | 2016-09-09 05:57 | CONS ---
DATE OF CONSULTATION: PRIMARY PHYSICIAN: Dr. Adan. REASON FOR CONSULTATION: ESRD, on dialysis. HISTORY OF PRESENT ILLNESS: The patient is a pleasant 85-year-old gentleman who I follow for his ESRD needs. He has been on peritoneal dialysis until recently. 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 This was biopsied. He thereafter was transitioned to hemodialysis for sodium thiosulfate administration. When we last saw him on outpatient dialysis last week, he was having significant discomfort in his scrotal area. He was evaluated by ____ at [facility]_. Initial impression was that he had calciphylaxis underlying his scrotum also. This has become more painful and uncomfortable to where he was getting increasingly confused due to increased pain med administration/use. Family hence has brought him here for further evaluation and we were asked to manage his ongoing dialysis besides calciphylaxis and other electrolyte abnormalities at the request of Dr. Adan. For the rest of details, see electronic records. FILIPPO RODRIGUES MD DR: PEYTON/raghu JOB#: [id number] / [id number]
[2016-09-09] MEDS ORDERED: VANCOMYCIN RANDOM LEVEL. MC ONE (06:00)
[2016-09-09] MEDS: PIPERACILLIN/TAZOBACTAM 2.25 GM in IV NORMAL SALINE 50ML 50 ML IV SCH ×3 (06:17→21:28)
[2016-09-09 07:00] VITALS: BP 117/61
[2016-09-09] MEDS ORDERED: PROCHLORPERAZINE 10 MG/2 ML VIAL. IV PRN (07:00)
[2016-09-09] MEDS ORDERED: fentaNYL PF VIAL 100 MCG/2 ML VIAL IV PRN ×2 (07:00)
[2016-09-09] MEDS ORDERED: HYDROmorphone 2 MG/ML VIAL IV PRN (07:00)
[2016-09-09] MEDS ORDERED: LIDOCAINE 1% 1 ML SYRINGE. ID PRN (07:00)
[2016-09-09] MEDS ORDERED: MORPHINE SULFATE 2 MG/ML DISP.SYRIN. IV PRN (07:00)
[2016-09-09] MEDS ORDERED: LIDOCAINE 1% PF 30 ML VIAL. ONE (07:12)
[2016-09-09] MEDS ORDERED: SURGICEL FIBRILLAR 1X2 EACH. ONE ×2 (07:12→14:12)
[2016-09-09] MEDS ORDERED: PAPAVERINE 60 MG/2 ML VIAL FOR OR ONLY. ONE ×2 (07:13→14:12)
[2016-09-09] MEDS: INSULIN ASPART 300 UNITS/3 ML INSULN.PEN SQ SCH ×7 (07:30→21:19)
[2016-09-09] MEDS ORDERED: IV NORMAL SALINE 1000ML BAG 1,000 ML IV PRN ×2 (07:30)
[2016-09-09] MEDS ORDERED: diphenhydrAMINE 50 MG/ML VIAL IV PRN ×2 (07:30)
[2016-09-09] MEDS ORDERED: ALBUMIN HUMAN 25% 200 ML IV PRN (07:30)
[2016-09-09] MEDS ORDERED: cloNIDine HCL 0.1 MG TABLET PO PRN (07:30)
[2016-09-09] MEDS ORDERED: LABETALOL 20 MG/4 ML DISP.SYRIN. IVP PRN (07:30)
[2016-09-09] MEDS ORDERED: DIALYSIS PATIENT. MC PRN (07:30)
[2016-09-09] MEDS ORDERED: ACETAMINOPHEN 500 MG TABLET PO PRN (07:30)
[2016-09-09] MEDS: CARVEDILOL 3.125 MG TABLET. PO SCH ×2 (08:00→17:35)
[2016-09-09] MEDS: SEVELAMER CARBONATE 800 MG TABLET. PO SCH ×3 (08:00→17:34)
--- NOTE | 2016-09-09 08:55 | PDOC ---
Infectious Disease Note ROS ROS GEN: Denies fevers, chills, sweats HEENT: Denies blurred vision, sore throat CV: Denies chest pain RESP: Denies shortness of air, cough GI: Denies n/v/d NEURO: Denies confusion, dizziness MSK: Denies weakness, joint pain/swelling Vital Sign Vital Signs Vital Signs Date Time Temp Pulse Resp B/P Pulse Ox O2 Delivery O2 Flow Rate FiO2 09/09/16 07:00 98.0 61 22 117/61 94 Room Air 98.0 Physical Exam PHYSICAL EXAM GENERAL: NAD, Alert HEENT: PERRL, OC/OP NECK: Supple, no JVD, no LN LUNGS: Clear HEART: S1S2, no gallop, no murmur ABD: Soft, NT, no organomegaly, no rebound EXT: No edema, no cyanosis 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 Pancreatic lesions on CT Plan Plan of Care Cont Vanc Add Zosyn/fluconazole Await eval F/u labs local wound care to RLE ? Pancreatic lesions per Primary D/w daughter Thank you # [phone] NURIA VELEZ MD Sep 09, 2016 08:55
[2016-09-09] MEDS: FLUCONAZOLE 100 MG TABLET. PO SCH (09:00)
[2016-09-09] MEDS: DOCUSATE SODIUM 100 MG CAPSULE. PO SCH (09:00)
[2016-09-09] MEDS: VITS A & D/LANOLIN TOPICAL OINTMENT 56GM TUBE. TP SCH ×3 (09:00→21:24)
[2016-09-09] MEDS: ALLOPURINOL 100 MG TABLET. PO SCH (09:00)
[2016-09-09] MEDS: APIXABAN 2.5 MG TABLET. PO SCH ×2 (09:00→21:22)
[2016-09-09] MEDS ORDERED: HEPARIN SODIUM 5,000 UNIT in IV NORMAL SALINE 500ML BAG 500 ML IRR ONE (09:00)
[2016-09-09] MEDS: CINACALCET HCL 30 MG TABLET PO SCH (09:00)
[2016-09-09] MEDS: GLIMEPIRIDE 2 MG TABLET. PO SCH (09:00)
--- NOTE | 2016-09-09 09:49 | PDOC ---
Infectious Disease Note Subjective Subjective Doing ok. Less painful ROS ROS GEN: Denies fevers, chills, sweats HEENT: Denies blurred vision, sore throat CV: Denies chest pain RESP: Denies shortness of air, cough GI: Denies n/v/d NEURO: Denies confusion, dizziness MSK: Denies weakness, joint pain/swelling Vital Sign Vital Signs Vital Signs Date Time Temp Pulse Resp B/P Pulse Ox O2 Delivery O2 Flow Rate FiO2 09/09/16 07:30 Room Air 09/09/16 07:00 98.0 61 22 117/61 94 98.0 Physical Exam PHYSICAL EXAM GENERAL: NAD, Alert. in HD HEENT: PERRL, s/p cataracts NECK: Supple, no JVD, no LN LUNGS: Clear HEART: S1S2, no gallop, no murmur ABD: Soft, NT, no organomegaly, no rebound, obese less induration/erythema and tenderness EXT: No edema, no cyanosis. Incision LUE clean. 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 Pancreatic lesions on CT Plan Plan of Care Cont Vanc/Zosyn/fluconazole Await Vascular surgery F/u labs local wound care to RLE ? Pancreatic lesions per Primary NURIA VELEZ MD Sep 09, 2016 09:49
--- NOTE | 2016-09-09 09:51 | PDOC ---
Dialysis Progress Note Dialysis Note Dialysis Note Seen on Hemodialysis, tolerating treatment Well Vitals on Hemodialysis: 139/59 102 afeb General Appearance: Awake: Alert Oriented x 3 Neck: No JVD or JVP Chest: CTA Oscar Heart: S1 S2 Abdomen - Soft NTND Extremities - No Edema ESRD: Dialysis as below F 180 NR 3.5 Hrs 3 K 2.5 Ca 140 Na 40 HC03 Qb 350 + Qd 500+ Heparin 0 Units Uf 2-3 Kgs or to dry weight as tolerated May give 25-50 gms of 25% Albumin if needed to maintain Hemodynamic stability Treatment plan reviewed and discussed with band sawmill operator Vitals Vital Signs Vital Signs Date Time Temp Pulse Resp B/P Pulse Ox O2 Delivery O2 Flow Rate FiO2 09/09/16 07:30 Room Air 09/09/16 07:00 98.0 61 22 117/61 94 98.0 Labs Last Labs Laboratory Tests Test 09/07/16 20:35 09/07/16 20:45 09/08/16 00:35 09/08/16 06:00 White Blood Count 11.8x10^3/uL (4.0-11.0) 10.3x10^3/uL (4.0-11.0) Red Blood Count 2.95x10^6/uL (4.30-5.70) 2.77x10^6/uL (4.30-5.70) Hemoglobin 9.2g/dL (13.0-17.5) 8.7g/dL (13.0-17.5) Hematocrit 28.4% (39.0-53.0) 26.5% (39.0-53.0) Mean Corpuscular Volume 96fL (79-100) 96fL (79-100) Mean Corpuscular Hemoglobin 31pg (25-35) 31pg (25-35) Mean Corpuscular Hemoglobin Concent 32g/dL (31-37) 33g/dL (31-37) Red Cell Distribution Width 16.4% (11.5-14.5) 16.2% (11.5-14.5) Platelet Count 292x10^3/uL (140-400) 253x10^3/uL (140-400) Neutrophils (%) (Auto) 87% (31-73) 85% (31-73) Lymphocytes (%) (Auto) 6% (24-48) 7% (24-48) Monocytes (%) (Auto) 5% (0-9) 6% (0-9) Eosinophils (%) (Auto) 2% (0-3) 1% (0-3) Basophils (%) (Auto) 1% (0-3) 1% (0-3) Neutrophils # (Auto) 10.3x10^3uL (1.8-7.7) 8.7x10^3uL (1.8-7.7) Lymphocytes # (Auto) 0.7x10^3/uL (1.0-4.8) 0.7x10^3/uL (1.0-4.8) Monocytes # (Auto) 0.5x10^3/uL (0.0-1.1) 0.6x10^3/uL (0.0-1.1) Eosinophils # (Auto) 0.2x10^3/uL (0.0-0.7) 0.1x10^3/uL (0.0-0.7) Basophils # (Auto) 0.1x10^3/uL (0.0-0.2) 0.0x10^3/uL (0.0-0.2) Segmented Neutrophils % 88% (35-66) Lymphocytes % 5% (24-48) Monocytes % 3% (0-10) Eosinophils % 4% (0-5) Platelet Estimate Adequate (ADEQUATE) Platelet Clumps, EDTA Present Giant Platelets Occ Polychromasia Slight Ovalocytes Occ Crenated Cell Present Sodium Level 144mmol/L (136-145) 144mmol/L (136-145) Potassium Level 3.0mmol/L (3.5-5.1) 3.5mmol/L (3.5-5.1) Chloride Level 98mmol/L (98-107) 99mmol/L (98-107) Carbon Dioxide Level 34mmol/L (21-32) 30mmol/L (21-32) Anion Gap 12 (6-14) 15 (6-14) Blood Urea Nitrogen 19mg/dL (8-26) 26mg/dL (8-26) Creatinine 2.9mg/dL (0.7-1.3) 3.7mg/dL (0.7-1.3) Estimated GFR (Cockcroft-Gault) 20.7 15.6 Glucose Level 223mg/dL (70-99) 311mg/dL (70-99) Calcium Level 8.7mg/dL (8.5-10.1) 8.7mg/dL (8.5-10.1) Lactic Acid Level 1.3mmol/L (0.4-2.0) Glucose (Fingerstick) 270mg/dL (70-99) Erythrocyte Sedimentation Rate 115 (0-15) BUN/Creatinine Ratio 7 (6-20) Ionized Calcium 1.02mmol/L (1.13-1.32) Phosphorus Level 3.4mg/dL (2.6-4.7) Magnesium Level 1.7mg/dL (1.8-2.4) Iron Level 31ug/dL (65-175) Total Iron Binding Capacity 152ug/dL (250-450) Iron Saturation 20% (15-34) Total Bilirubin 0.4mg/dL (0.2-1.0) Aspartate Amino Transf (AST/SGOT) 11U/L (15-37) Alanine Aminotransferase (ALT/SGPT) 12U/L (16-63) Alkaline Phosphatase 91U/L (46-116) C-Reactive Protein High Sensitivity 110.82mg/L (0.00-3.00) Total Protein 6.6g/dL (6.4-8.2) Albumin 2.1g/dL (3.4-5.0) Albumin/Globulin Ratio 0.5 (1.0-1.7) Vitamin B12 Level 1226pg/mL (247-911) Test 09/08/16 07:09 09/08/16 11:43 09/08/16 16:33 09/08/16 20:59 Glucose (Fingerstick) 307mg/dL (70-99) 282mg/dL (70-99) 132mg/dL (70-99) 47mg/dL (70-99) Test 09/08/16 21:14 09/09/16 04:35 09/09/16 06:44 Glucose (Fingerstick) 149mg/dL (70-99) 99mg/dL (70-99) Random Vancomycin Level 17.8mcg/mL Laboratory Tests Test 09/08/16 11:43 09/08/16 16:33 09/08/16 20:59 09/08/16 21:14 Glucose (Fingerstick) 282mg/dL (70-99) 132mg/dL (70-99) 47mg/dL (70-99) 149mg/dL (70-99) Test 09/09/16 04:35 09/09/16 06:44 Random Vancomycin Level 17.8mcg/mL Glucose (Fingerstick) 99mg/dL (70-99) Assessment Assessment Problems Medical Problems: (1) Open wound of scrotum Status: Acute Problems: Plan Plan of Care Problems Medical Problems: (1) Open wound of scrotum Status: Acute FILIPPO RODRIGUES MD Sep 09, 2016 09:50
[2016-09-09] MEDS ORDERED: IV NORMAL SALINE 1000ML BAG 1,000 ML IV SCH (12:00)
--- NOTE | 2016-09-09 13:49 | PDOC ---
PROGRESS NOTES Chief Complaint Chief Complaint scrotal cellulitis open wound ESRD on PD, now on HD dementia, mild DM2, mod control CAd S/P CABG in 2004 hypokalemia, anemia of CKD OBEsity [address] stable left addrenal gland lesion 3.8cm on CT left arm AVF 3weeks, with steal syndrome plan; fu with uro, id, renal, vascular, will get GI consult check [id number] cont HD AVF ligation as per vascular today on zosyn and vanco, need wound care on eliquis ptot History of Present Illness History of Present Illness vanc, zosyn, fluconazole wound RN consult pending, may need freq dressing change, wound care still scrotum wound with pus exudate, pain left hand cold with mild weakness has PD now on HD Vitals Vitals Vital Signs Date Time Temp Pulse Resp B/P Pulse Ox O2 Delivery O2 Flow Rate FiO2 09/09/16 13:15 97.6 102 20 119/56 95 Room Air 97.6 Physical Exam Physical Exam bl wrist ulnar pulse hard to feel, but left hand is cooler, AVF has bruits General: Alert, Cooperative, No acute distress Heart: No murmurs Lungs: Clear Abdomen: Normal bowel sounds, Soft Extremities: No cyanosis, Other (tr edema) Skin: Other (scrotal swelling, erythema and ulceration under the penis, PUS exudate seen) Labs LABS Laboratory Tests Test 09/08/16 16:33 09/08/16 20:59 09/08/16 21:14 09/09/16 04:35 Glucose (Fingerstick) 132mg/dL (70-99) 47mg/dL (70-99) 149mg/dL (70-99) Random Vancomycin Level 17.8mcg/mL Test 09/09/16 06:44 Glucose (Fingerstick) 99mg/dL (70-99) Review of Systems Review of Systems no fever, chills, sob or chest pain Assessment and Plan Assessmemt and Plan Problems Medical Problems: (1) Open wound of scrotum Status: Acute Problems: Comment Review of Relevant I have reviewed the following items robert (where applicable) has been applied. Labs Laboratory Tests Test 09/07/16 20:35 09/07/16 20:45 09/08/16 00:35 09/08/16 06:00 White Blood Count 11.8x10^3/uL (4.0-11.0) 10.3x10^3/uL (4.0-11.0) Red Blood Count 2.95x10^6/uL (4.30-5.70) 2.77x10^6/uL (4.30-5.70) Hemoglobin 9.2g/dL (13.0-17.5) 8.7g/dL (13.0-17.5) Hematocrit 28.4% (39.0-53.0) 26.5% (39.0-53.0) Mean Corpuscular Volume 96fL (79-100) 96fL (79-100) Mean Corpuscular Hemoglobin 31pg (25-35) 31pg (25-35) Mean Corpuscular Hemoglobin Concent 32g/dL (31-37) 33g/dL (31-37) Red Cell Distribution Width 16.4% (11.5-14.5) 16.2% (11.5-14.5) Platelet Count 292x10^3/uL (140-400) 253x10^3/uL (140-400) Neutrophils (%) (Auto) 87% (31-73) 85% (31-73) Lymphocytes (%) (Auto) 6% (24-48) 7% (24-48) Monocytes (%) (Auto) 5% (0-9) 6% (0-9) Eosinophils (%) (Auto) 2% (0-3) 1% (0-3) Basophils (%) (Auto) 1% (0-3) 1% (0-3) Neutrophils # (Auto) 10.3x10^3uL (1.8-7.7) 8.7x10^3uL (1.8-7.7) Lymphocytes # (Auto) 0.7x10^3/uL (1.0-4.8) 0.7x10^3/uL (1.0-4.8) Monocytes # (Auto) 0.5x10^3/uL (0.0-1.1) 0.6x10^3/uL (0.0-1.1) Eosinophils # (Auto) 0.2x10^3/uL (0.0-0.7) 0.1x10^3/uL (0.0-0.7) Basophils # (Auto) 0.1x10^3/uL (0.0-0.2) 0.0x10^3/uL (0.0-0.2) Segmented Neutrophils % 88% (35-66) Lymphocytes % 5% (24-48) Monocytes % 3% (0-10) Eosinophils % 4% (0-5) Platelet Estimate Adequate (ADEQUATE) Platelet Clumps, EDTA Present Giant Platelets Occ Polychromasia Slight Ovalocytes Occ Crenated Cell Present Sodium Level 144mmol/L (136-145) 144mmol/L (136-145) Potassium Level 3.0mmol/L (3.5-5.1) 3.5mmol/L (3.5-5.1) Chloride Level 98mmol/L (98-107) 99mmol/L (98-107) Carbon Dioxide Level 34mmol/L (21-32) 30mmol/L (21-32) Anion Gap 12 (6-14) 15 (6-14) Blood Urea Nitrogen 19mg/dL (8-26) 26mg/dL (8-26) Creatinine 2.9mg/dL (0.7-1.3) 3.7mg/dL (0.7-1.3) Estimated GFR (Cockcroft-Gault) 20.7 15.6 Glucose Level 223mg/dL (70-99) 311mg/dL (70-99) Calcium Level 8.7mg/dL (8.5-10.1) 8.7mg/dL (8.5-10.1) Lactic Acid Level 1.3mmol/L (0.4-2.0) Glucose (Fingerstick) 270mg/dL (70-99) Erythrocyte Sedimentation Rate 115 (0-15) BUN/Creatinine Ratio 7 (6-20) Ionized Calcium 1.02mmol/L (1.13-1.32) Phosphorus Level 3.4mg/dL (2.6-4.7) Magnesium Level 1.7mg/dL (1.8-2.4) Iron Level 31ug/dL (65-175) Total Iron Binding Capacity 152ug/dL (250-450) Iron Saturation 20% (15-34) Total Bilirubin 0.4mg/dL (0.2-1.0) Aspartate Amino Transf (AST/SGOT) 11U/L (15-37) Alanine Aminotransferase (ALT/SGPT) 12U/L (16-63) Alkaline Phosphatase 91U/L (46-116) C-Reactive Protein High Sensitivity 110.82mg/L (0.00-3.00) Total Protein 6.6g/dL (6.4-8.2) Albumin 2.1g/dL (3.4-5.0) Albumin/Globulin Ratio 0.5 (1.0-1.7) Vitamin B12 Level 1226pg/mL (247-911) Test 09/08/16 07:09 09/08/16 11:43 09/08/16 16:33 09/08/16 20:59 Glucose (Fingerstick) 307mg/dL (70-99) 282mg/dL (70-99) 132mg/dL (70-99) 47mg/dL (70-99) Test 09/08/16 21:14 09/09/16 04:35 09/09/16 06:44 Glucose (Fingerstick) 149mg/dL (70-99) 99mg/dL (70-99) Random Vancomycin Level 17.8mcg/mL Laboratory Tests Test 09/08/16 16:33 09/08/16 20:59 09/08/16 21:14 09/09/16 04:35 Glucose (Fingerstick) 132mg/dL (70-99) 47mg/dL (70-99) 149mg/dL (70-99) Random Vancomycin Level 17.8mcg/mL Test 09/09/16 06:44 Glucose (Fingerstick) 99mg/dL (70-99) Microbiology 09/07/16 Blood Culture - Preliminary, Resulted NO GROWTH AFTER 1 DAY Medications Current Medications Meropenem/Sodium Chloride (Merrem/Iv Sodium Chloride 0.9% 100ml) 100 ml @ 200 mls/hr Q8HRS IV ; Start 09/07/16 at 22:00; Status UNV Vancomycin HCl 1 each 1 each PRN DAILY PRN MC SEE COMMENTS Last administered on 09/08/16t 10:50; Start 09/07/16 at 20:45 Sodium Chloride (Iv Sodium Chloride 0.9% 500ml Bag) 500 ml @ 500 mls/hr 1X ONCE IV Last administered on 09/07/16 21:04; Start 09/07/16 at 21:00; Stop at 21:59; Status DC Hydromorphone HCl 1 mg 1 mg 1X ONCE IV Last administered on 09/07/16 20:59; Start 09/07/16 at 21:00; Stop 09/07/16 at 21:01; Status DC Meropenem 500 mg/ Sodium Chloride 50 ml @ 100 mls/hr QHS IV Last administered on 09/07/16 21:05; Start 09/07/16 at 21:00; Stop 09/08/16 at 07:59; Status DC Vancomycin HCl/ Sodium Chloride (Iv Sodium Chloride 0.9% 500ml Bag) 500 ml @ 250 mls/hr 1X ONCE IV Last administered on 09/07/16 22:07; Start 09/07/16 at 21:30; Stop 09/07/16 at 23:29; Status DC Ondansetron HCl (Zofran) 4 mg PRN Q8HRS PRN IV NAUSEA/VOMITING Last administered on 09/07/16 22:43; Start 09/07/16 at 22:00; Stop 09/08/16 at 21:59 ; Status DC Morphine Sulfate 4 mg 4 mg PRN Q2HR PRN IV SEVERE PAIN Last administered on 21:12; Start 09/07/16 at 22:00; Stop 09/08/16 at 21:59; Status DC Sodium Chloride (Iv Sodium Chloride 0.9% 1000ml Bag) 1,000 ml @ 75 mls/hr [id number] IV Last administered on 09/08/16 12:56; Start 09/07/16 at 21:52; Stop 09/08/16 at 21:51; Status DC Insulin Aspart (Novolog) 0-7 UNITS TIDWMEALS SQ ; Start 09/08/16 at 08:00; Stop 09/08/16 at 08:00; Status DC Dextrose (Dextrose 50%-Water Syringe) 12.5 gm PRN Q15MIN PRN IV SEE COMMENTS Last administered on 09/08/16 21:03; Start 09/07/16 at 22:30 Allopurinol (Zyloprim) 100 mg DAILY PO Last administered on 09/08/16 07:59; Start 09/08/16 at 09:00 Apixaban (Eliquis) 2.5 mg DAILY PO Last administered on 09/08/16 07:59; Start 09/08/16 at 09:00; Stop 09/08/16 at 10:43; Status DC Atorvastatin Calcium (Lipitor) 40 mg QHS PO Last administered on 09/08/16 21: 05; Start 09/08/16 at 21:00 Carvedilol (Coreg) 3.125 mg BIDWMEALS PO Last administered on 09/08/16 08:00; Start 09/08/16 at 08:00 Cinacalcet (Sensipar) 30 mg DAILY PO Last administered on 09/08/16 07:59; Start 09/08/16 at 09:00 Glimepiride (Amaryl) 4 mg DAILY PO Last administered on 09/08/16 07:59; Start 09/08/16 at 09:00 Acetaminophen/ Hydrocodone Bitart (Lortab 5/325) 1 tab PRN Q6HRS PRN PO SEVERE PAIN Last administered on 09/09/16 06:16; Start 09/07/16 at 22:30 Polyethylene Glycol (miraLAX PACKET) 17 gm PRN DAILY PRN PO CONSTIPATION; Start 09/07/16 at 22:30 Sevelamer Carbonate (Renvela) 2.4 gm TIDWMEALS PO Last administered on 07:59; Start 09/08/16 at 08:00; Stop 09/08/16 at 12:01; Status DC Vitamin A/Vitamin D (Vitamin A & D Ointment) 1 katie TID TP Last administered on 09/08/16 21:07; Start 09/08/16 at 09:00 Docusate Sodium (Colace) 100 mg PRN DAILY PRN PO CONSTIPATION; Start 09/07/16 at 22:45 Docusate Sodium (Colace) 100 mg DAILY PO Last administered on 09/08/16 07:59; Start 09/08/16 at 09:00 Potassium Chloride (Klor-Con) 20 meq 1X ONCE PO Last administered on 01:38; Start 09/07/16 at 23:00; Stop 09/07/16 at 23:01; Status DC Insulin Aspart (Novolog) 0-7 UNITS QIDACHS SQ Last administered on 09/08/16 12 :56; Start 09/07/16 at 22:45 Info (Anti-Coagulation Monitoring By Pharmacy) 1 each PRN DAILY PRN MC SEE COMMENTS Last administered on 09/08/16 02:30; Start 09/07/16 at 23:45 Vancomycin HCl 1 each 1 each 1X ONCE MC ; Start 09/11/16 at 21:30; Stop at 21:30; Status DC Vancomycin HCl 1.5 gm/Sodium Chloride 500 ml @ 250 mls/hr Q48H IV ; Start 09/09 at 22:00; Stop 09/09/16 at 22:00; Status DC Piperacillin Sod/ Tazobactam Sod/ Sodium Chloride (Zosyn/Iv Sodium Chloride 0.9 % 50ml) 50 ml @ 100 mls/hr Q8HRS IV Last administered on 09/09/16 06:17; Start 09/08/16 at 08:30 Fluconazole (Diflucan) 100 mg DAILY PO Last administered on 09/08/16 09:49; Start 09/08/16 at 09:00 Darbepoetin Lasha (Aranesp) 60 mcg WEEKLYHS SQ Last administered on 09/08/16 21 :06; Start 09/08/16 at 21:00 Apixaban (Eliquis) 2.5 mg BID PO Last administered on 09/08/16 21:05; Start at 21:00 Vancomycin HCl 1 each 1X ONCE MC Last administered on 09/09/16 06:00; Start 09/09/16 at 06:00; Stop 09/09/16 at 06:01; Status DC Sevelamer Carbonate (Renvela) 2,400 mg TIDWMEALS PO Last administered on 18:11; Start 09/08/16 at 12:00 Insulin Aspart (Novolog) 8 units TIDAC SQ Last administered on 09/08/16 18:15 ; Start 09/08/16 at 12:00 Lorazepam (Ativan) 0.5 mg PRN Q6HRS PRN PO ANXIETY / AGITATION Last administered on 09/08/16 14:12; Start 09/08/16 at 13:00 Fentanyl Citrate (Fentanyl 2ml Vial) 25 mcg PRN Q5MIN PRN IV MILD PAIN; Start 09/09/16 at 07:00; Stop 09/10/16 at 06:59 Fentanyl Citrate (Fentanyl 2ml Vial) 50 mcg PRN Q5MIN PRN IV MODERATE PAIN; Start 09/09/16 at 07:00; Stop 09/10/16 at 06:59 Morphine Sulfate 1 mg PRN Q10MIN PRN IV SEVERE PAIN; Start 09/09/16 at 07:00; Stop 09/10/16 at 06:59 Lidocaine HCl 2 ml PRN 1X PRN ID PRIOR TO IV START; Start 09/09/16 at 07:00; Stop 09/10/16 at 06:59 Hydromorphone HCl (Dilaudid) 0.5 mg PRN Q10MIN PRN IV SEV PAIN, Second choice; Start 09/09/16 at 07:00; Stop 09/10/16 at 06:59 Prochlorperazine Edisylate 5 mg 5 mg PACU PRN PRN IV NAUSEA, MRX1; Start at 07:00; Stop 09/10/16 at 06:59 Sodium Chloride (Iv Sodium Chloride 0.9% 1000ml Bag) 1,000 ml @ 0 mls/hr Q0M IV ; Start 09/09/16 at 12:00 Morphine Sulfate 4 mg PRN Q2HR PRN IV SEVERE PAIN Last administered on t 12:32; Start 09/09/16 at 01:00 Lidocaine HCl 30 ml STK-MED ONCE .ROUTE ; Start 09/09/16 at 07:12; Stop at 07:13; Status DC Cellulose 1 each STK-MED ONCE .ROUTE ; Start 09/09/16 at 07:12; Stop 09/09/16 at 07:13; Status DC Papaverine HCl 60 mg 60 mg STK-MED ONCE .ROUTE ; Start 09/09/16 at 07:13; Stop 09/09/16 at 07:14; Status DC Sodium Chloride 1,000 ml @ 1,000 mls/hr Q1H PRN IV hypotension; Start 09/09/16 at 07:30; Stop 09/09/16 at 13:29; Status DC Albumin Human (Albuminar) 200 ml @ 200 mls/hr 1X PRN PRN IV Hypotension Last administered on 09/09/16t 09:37; Start 09/09/16 at 07:30; Stop 09/09/16 at 13:29 ; Status DC Acetaminophen (Tylenol) 500 mg 1X PRN PRN PO MILD PAIN / TEMP; Start 09/09/16 at 07:30; Stop 09/10/16 at 07:29 Diphenhydramine HCl (Benadryl) 25 mg 1X PRN PRN IV ITCHING; Start 09/09/16 at 07:30; Stop 09/10/16 at 07:29 Diphenhydramine HCl (Benadryl) 25 mg 1X PRN PRN IV ITCHING; Start 09/09/16 at 07:30; Stop 09/10/16 at 07:29 Labetalol HCl (Normodyne) 10 mg PRN Q1HR PRN IVP SBP > 180; Start 09/09/16 at 07:30; Stop 09/10/16 at 07:29 Clonidine HCl 0.1 mg 0.1 mg 1X PRN PRN PO SBP > 180; Start 09/09/16 at 07:30; Stop 09/10/16 at 07:29 Sodium Chloride (Iv Sodium Chloride 0.9% 1000ml Bag) 1,000 ml @ 400 mls/hr Q2H30M PRN IV PATENCY; Start 09/09/16 at 07:30; Stop 09/09/16 at 19:29 Info 1 each 1 each PRN DAILY PRN MC SEE COMMENTS; Start 09/09/16 at 07:30 Heparin Sodium (Porcine) 5000 unit/Sodium Chloride 505 ml @ 505 mls/hr 1X PERIOP ONCE IRR ; Start 09/09/16 at 09:00; Stop 09/09/16 at 09:59; Status DC Cefazolin Sodium 1 gm/Sodium Chloride 500 ml @ 500 mls/hr 1X PERIOP ONCE IRR ; Start 09/09/16 at 09:00; Stop 09/09/16 at 09:59; Status DC Cefazolin Sodium (Ancef 1gm Ivpb For Omni) 50 ml @ As Directed STK-MED ONCE IV ; Start 09/09/16 at 13:23; Stop 09/09/16 at 13:24; Status DC Active Scripts Active Mupirocin Ointment (Mupirocin) 22 Gm Oint...g. 1 Katie TP TID Vitamin A & D Ointment (Vits A & D/White Pet/Lanolin) 56.7 Gm Oint...g. 1 Katie TP TID Diflucan (Fluconazole) 100 Mg Tablet 100 Mg PO DAILY Allopurinol 100 Mg Tablet 100 Mg PO DAILY Hydrocodone-Apap 5-325 (Hydrocodone Bit/Acetaminophen) 1 Each Tablet 1 Tab PO Q6HRS PRN Eliquis (Apixaban) 2.5 Mg Tablet 2.5 Mg PO DAILY Renvela (Sevelamer Carbonate) 2.4 Gm Powd.pack 2.4 Gm PO TIDWMEALS Miralax (Polyethylene Glycol 3350) 17 Gm Powd.pack 17 Gm PO PRN DAILY PRN Carvedilol 3.125 Mg Tablet 3.125 Mg PO BIDWMEALS Reported Sensipar (Cinacalcet Hcl) 30 Mg Tablet 1 Tab PO DAILY Glimepiride 2 Mg Tablet 4 Mg PO DAILY Novolog (Insulin Aspart) 100 Unit/1 Ml Cartridge 8 Unit SQ TIDAC Atorvastatin Calcium 40 Mg Tablet 1 Tab PO DAILY Vitals/I & O Vital Sign - Last 24 Hours 09/08/16 09/08/16 09/08/16 09/08/16 15:00 18:10 19:15 20:20 Temp 98.0 97.7 98.0 97.7 Pulse 77 94 Resp 24 18 B/P 98/50 115/54 Pulse Ox 97 97 O2 Delivery Room Air Room Air Room Air Room Air 09/08/16 09/08/16 09/09/16 09/09/16 21:12 23:22 00:15 01:13 Temp 98.1 98.1 Pulse 83 Resp 18 B/P 109/58 Pulse Ox 91 O2 Delivery Room Air Room Air Room Air Room Air 09/09/16 09/09/16 09/09/16 09/09/16 02:00 03:10 06:16 07:00 Temp 97.9 98.0 97.9 98.0 Pulse 91 61 Resp 18 22 B/P 97/51 117/61 Pulse Ox 96 94 O2 Delivery Room Air Room Air Room Air Room Air 09/09/16 09/09/16 09/09/16 09/09/16 07:20 07:30 12:32 13:15 Temp 97.6 97.6 Pulse 102 Resp 20 B/P 119/56 Pulse Ox 95 O2 Delivery Room Air Room Air Room Air Room Air Intake and Output 09/08/16 09/08/16 09/09/16 15:00 23:00 07:00 Intake Total 120 ml Output Total 200 ml 0 ml Balance -200 ml 120 ml YARED MOSELEY MD Sep 09, 2016 13:49
--- NOTE | 2016-09-09 14:02 | PDOC ---
Provider Note Provider Note AF VSS awake and alert left antecubital incision intact with signs of infection, fistula with thrill, hand with mild weakness and numbness since fistula placement A/P left arm recent brachiobasilic fistula placement with steal symptoms to the left hand - plan ligation of the left arm fistula to improve circulation to the hand, he is not using the fistula and will be on peritoneal dialysis HILDA MERIDA MD Sep 09, 2016 14:02
[2016-09-09] MEDS ORDERED: fentaNYL PF VIAL 100 MCG/2 ML VIAL ONE (14:06)
[2016-09-09] MEDS ORDERED: MIDAZOLAM HCL/PF 2 MG/2 ML VIAL. ONE (14:06)
[2016-09-09] MEDS ORDERED: LIDOCAINE 1% 20 ML VIAL. ONE ×2 (14:11)
[2016-09-09] MEDS ORDERED: HYDROcodone/APAP 5/325MG 1 TAB TABLET PO PRN (14:15)
[2016-09-09] MEDS: VANCOMYCIN PER PHARMACY MC PRN (14:19)
[2016-09-09] MEDS ORDERED: PROPOFOL 20 ML IV ONE (14:51)
--- NOTE | 2016-09-09 15:00 | PDOC ---
BRIEF OPERATIVE NOTE Date: Sep 09, 2016 Pre-Op Diagnosis Renal failure, left arterio-venous fistula with steal Post-Op Diagnosis same Procedure Performed Ligation left arterio-venous fistula Surgeon Dr. Rasmussen [employer] Worker Bita Motta, VIRAJ Anesthesia Type: MAC, Local Blood Loss minimal Findings doppler radial and ulnar post ligation Complications none stable to PACU BITA MOTTA DIRECTOR OF BLOOD Sep 09, 2016 15:00
[2016-09-09] MEDS ORDERED: VANCOMYCIN 500 MG in IV NORMAL SALINE 100ML 100 ML IV SCH (16:00)
[2016-09-09 17:00] VITALS: BP 128/58
[2016-09-09 17:15] VITALS: BP 127/62
[2016-09-09 19:00] VITALS: BP 106/61
--- NOTE | 2016-09-09 19:26 | OP ---
DATE OF SURGERY: 09/09/2016 SURGEON: HILDA MERIDA M.D. FINANCIAL COST ANALYST: Kemi Dale. PREOPERATIVE DIAGNOSES: Left arm recent brachial to basilic fistula placement with ischemic steal symptoms to his left hand with weakness and discomfort. POSTOPERATIVE DIAGNOSES: Left arm recent brachial to basilic fistula placement with ischemic steal symptoms to his left hand with weakness and discomfort. OPERATION PERFORMED: Ligation of the left arm brachial artery to basilic vein fistula. ESTIMATED BLOOD LOSS: Minimal, less than 5 mL. ANESTHESIA: Monitored sedation. INDICATIONS: The patient is an 85-year-old male with end-stage renal disease, currently on hemodialysis and starting peritoneal dialysis. He has a left arm brachial to basilic vein fistula placed 3 weeks ago by ____ and since that time has developed weakness and discomfort in his left hand. He is not going to be using his arm for dialysis and said he is going to be started on peritoneal dialysis through the catheter that is ready placed. This recommendation by myself and an agreement with Dr. Hester to ligate the fistula in the left arm to try to improve his symptoms to his hands since he will not be needing this fistula for dialysis. Informed consent was obtained including the risks of bleeding, infection, wound healing difficulties, possibility of known improving his symptoms and permanent weakness to his left hand from previous damage. DETAILS OF THE OPERATION: The patient was brought to the operating room and placed on table in supine position. He received monitored sedation throughout the case by the anesthesiologist. His left arm was prepped and draped by normal sterile fashion. The previous incision still has sutures in place. There was an easily repalpable thrill within the fistula just above this incision. I used Lidocaine to anesthetize the skin and subcutaneous tissue and made a transverse incision, a few centimeters above his previous incision over the vein fistula. Subcutaneous tissue was dissected down with electrocautery to the venous fistula which had a strong pulse within it, is quite large in diameter, approximately 6-7 mm. We used 2-0 silk sutures. I ligated the vein fistula at this location. I used a ____ 2-0 silk sutures ligating fistula. There is no further thrill above the fistula felt after ligation. We have used a Doppler and there is a strong dopplerable signal at the radial artery location at the wrist level and at the brachial artery distal to the incision. We irrigated the wound, controlled the bleeding with hemostasis was very dry, we then closed the subcutaneous tissue with 3-0 Vicryl suture and closed the skin with running 4-0 nylon suture. Sterile dressing was placed. The patient tolerated the surgery well. We did check the pulse oximetry and the finger prior to starting the case, which was around 90%, after the ligation it was 95%. HILDA MERIDA MD DR: VLADIMIR/raghu JOB#: [id number] / [id number]
[2016-09-09] MEDS: ATORVASTATIN CALCIUM 40 MG TABLET. PO SCH (21:22)
[2016-09-09] MEDS ORDERED: VANCOMYCIN 1.5 GM in IV NORMAL SALINE 500ML BAG 500 ML IV SCH (22:00)
[2016-09-09 23:02] VITALS: BP 138/60
[2016-09-10] VITALS (7 sets, daily range): BP systolic 114–143; BP diastolic 52–77
[2016-09-10 04:55] LABS: BASO # 0.1 x10^3/uL (0.0-0.2); BASO % 1 % (0-3); EOS % 3 % (0-3); HEMATOCRIT 24.8 % (39.0-53.0); HEMOGLOBIN 8.1 g/dL (13.0-17.5); LYMPH # 0.8 x10^3/uL (1.0-4.8); LYMPH % 8 % (24-48); MEAN CORPUSCULAR HEMOGLOBIN 33 pg (25-35); MEAN CORPUSCULAR HGB CONC 33 g/dL (31-37); MEAN CORPUSCULAR VOLUME 99 fL (79-100); MONO % 6 % (0-9); NEUT % 82 % (31-73); PLATELET COUNT 238 x10^3/uL (140-400); RED CELL DISTRIBUTION WIDTH 16.7 % (11.5-14.5); WHITE BLOOD COUNT 9.7 x10^3/uL (4.0-11.0)
[2016-09-10] MEDS: HYDROcodone/APAP 5/325MG 1 TAB TABLET PO PRN ×2 (04:57→08:48)
[2016-09-10 05:34] LABS: CREATININE 3.4 mg/dL (0.7-1.3); GFR 17.2
[2016-09-10] MEDS: PIPERACILLIN/TAZOBACTAM 2.25 GM in IV NORMAL SALINE 50ML 50 ML IV SCH (06:11)
[2016-09-10] MEDS: ALLOPURINOL 100 MG TABLET. PO SCH (08:30)
[2016-09-10] MEDS: SEVELAMER CARBONATE 800 MG TABLET. PO SCH ×3 (08:30→18:24)
[2016-09-10] MEDS: CINACALCET HCL 30 MG TABLET PO SCH (08:32)
[2016-09-10] MEDS: CARVEDILOL 3.125 MG TABLET. PO SCH ×2 (08:32→18:25)
[2016-09-10] MEDS: FLUCONAZOLE 100 MG TABLET. PO SCH (08:32)
[2016-09-10] MEDS: APIXABAN 2.5 MG TABLET. PO SCH ×2 (08:32→21:25)
[2016-09-10] MEDS: DOCUSATE SODIUM 100 MG CAPSULE. PO SCH (08:33)
[2016-09-10] MEDS: INSULIN ASPART 300 UNITS/3 ML INSULN.PEN SQ SCH ×7 (08:41→21:50)
[2016-09-10] MEDS: VITS A & D/LANOLIN TOPICAL OINTMENT 56GM TUBE. TP SCH ×3 (09:00→21:25)
--- NOTE | 2016-09-10 09:00 | PDOC ---
Infectious Disease Note Subjective Subjective Doing ok. Less painful Hungry this am Scrotal some better ROS ROS GEN: Denies fevers, chills, sweats HEENT: Denies blurred vision, sore throat CV: Denies chest pain RESP: Denies shortness of air, cough GI: Denies n/v/d NEURO: Denies confusion, dizziness MSK: Denies weakness, joint pain/swelling Vital Sign Vital Signs Vital Signs Date Time Temp Pulse Resp B/P Pulse Ox O2 Delivery O2 Flow Rate FiO2 09/10/16 08:32 85 140/65 09/10/16 07:00 97.9 20 96 Room Air 97.9 Physical Exam PHYSICAL EXAM GENERAL: NAD, Alert. HEENT: PERRL, s/p cataracts NECK: Supple, no JVD, no LN LUNGS: Clear HEART: S1S2, no gallop, no murmur ABD: Soft, NT, no organomegaly, no rebound, obese less induration/erythema and tenderness EXT: No edema, no cyanosis. Incision LUE dressed. arm warm. RLE dry eschar EDUCATION NURSE: Alert, oriented x 3, no focal neurologic deficit SKIN: No rash IV: ok Labs Lab Laboratory Tests Test 09/09/16 16:08 09/09/16 20:26 09/10/16 04:18 09/10/16 08:01 Glucose (Fingerstick) 178mg/dL (70-99) 188mg/dL (70-99) 180mg/dL (70-99) White Blood Count 9.7x10^3/uL (4.0-11.0) Red Blood Count 2.50x10^6/uL (4.30-5.70) Hemoglobin 8.1g/dL (13.0-17.5) Hematocrit 24.8% (39.0-53.0) Mean Corpuscular Volume 99fL (79-100) Mean Corpuscular Hemoglobin 33pg (25-35) Mean Corpuscular Hemoglobin Concent 33g/dL (31-37) Red Cell Distribution Width 16.7% (11.5-14.5) Platelet Count 238x10^3/uL (140-400) Neutrophils (%) (Auto) 82% (31-73) Lymphocytes (%) (Auto) 8% (24-48) Monocytes (%) (Auto) 6% (0-9) Eosinophils (%) (Auto) 3% (0-3) Basophils (%) (Auto) 1% (0-3) Neutrophils # (Auto) 7.9x10^3uL (1.8-7.7) Lymphocytes # (Auto) 0.8x10^3/uL (1.0-4.8) Monocytes # (Auto) 0.6x10^3/uL (0.0-1.1) Eosinophils # (Auto) 0.3x10^3/uL (0.0-0.7) Basophils # (Auto) 0.1x10^3/uL (0.0-0.2) Sodium Level 143mmol/L (136-145) Potassium Level 4.0mmol/L (3.5-5.1) Chloride Level 100mmol/L (98-107) Carbon Dioxide Level 28mmol/L (21-32) Anion Gap 15 (6-14) Blood Urea Nitrogen 24mg/dL (8-26) Creatinine 3.4mg/dL (0.7-1.3) Estimated GFR (Cockcroft-Gault) 17.2 Glucose Level 181mg/dL (70-99) Calcium Level 9.0mg/dL (8.5-10.1) Objective Assessment Scrotal wound Scrotal cellulitis - better S/p LUE Ligation 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 Pancreatic lesions on CT Plan Plan of Care Cont Vanc/Fluconazole Zosyn to augmentin/ Change to po after today F/u labs local wound care to RLE ? Pancreatic lesions per Primary D/w family NURIA VELEZ MD Sep 10, 2016 09:00
--- NOTE | 2016-09-10 10:11 | PDOC2 ---
GI CONSULT Reason For Consult: Pancreatic lesions HPI: HPI: 85 y/o male admitted w/ several issues including scrotal wound/cellulitis (ID following), RLE wound/calciphylaxis, h/o CKD on HD s/o LUE ligation left AV fistula. GI asked to see re: pancreatic lesions on non-contrast CT (below). CA19-9 in process. No h/o liver or pancreatic issues, does have h/o DM. Currently no GI complaints although family in room mentions he has just been "picking" at food this admission. Colonoscopy ~age 78 w/ polyps. PMH: PMH: AFib, CAD, CHF, HTN, HLD, peripheral neuropathy, anemia, gout, BPH, ESRD on PD, IDDM, appendectomy, CABG, cataract removal, tonsillectomy FH: Family History: Cancer, CVA, DM, Hypertension Social History: Smoke: Quit ALCOHOL: rare Drugs: None ROS: GEN: Denies fevers, chills, sweats HEENT: Denies blurred vision, sore throat CV: Denies chest pain RESP: Denies shortness of air, cough GI: Per HPI : Denies hematuria, dysuria ENDO: +fluctuating weight NEURO: Denies confusion, dizziness MSK: +weakness SKIN: Denies jaundice, pruritus VItals: Vitals: Vital Signs Date Time Temp Pulse Resp B/P Pulse Ox O2 Delivery O2 Flow Rate FiO2 09/10/16 08:48 16 Room Air 09/10/16 08:32 85 140/65 09/10/16 07:00 97.9 96 97.9 Labs: Labs: Laboratory Tests Test 09/09/16 16:08 09/09/16 20:26 09/10/16 04:18 09/10/16 08:01 Glucose (Fingerstick) 178mg/dL (70-99) 188mg/dL (70-99) 180mg/dL (70-99) White Blood Count 9.7x10^3/uL (4.0-11.0) Red Blood Count 2.50x10^6/uL (4.30-5.70) Hemoglobin 8.1g/dL (13.0-17.5) Hematocrit 24.8% (39.0-53.0) Mean Corpuscular Volume 99fL (79-100) Mean Corpuscular Hemoglobin 33pg (25-35) Mean Corpuscular Hemoglobin Concent 33g/dL (31-37) Red Cell Distribution Width 16.7% (11.5-14.5) Platelet Count 238x10^3/uL (140-400) Neutrophils (%) (Auto) 82% (31-73) Lymphocytes (%) (Auto) 8% (24-48) Monocytes (%) (Auto) 6% (0-9) Eosinophils (%) (Auto) 3% (0-3) Basophils (%) (Auto) 1% (0-3) Neutrophils # (Auto) 7.9x10^3uL (1.8-7.7) Lymphocytes # (Auto) 0.8x10^3/uL (1.0-4.8) Monocytes # (Auto) 0.6x10^3/uL (0.0-1.1) Eosinophils # (Auto) 0.3x10^3/uL (0.0-0.7) Basophils # (Auto) 0.1x10^3/uL (0.0-0.2) Sodium Level 143mmol/L (136-145) Potassium Level 4.0mmol/L (3.5-5.1) Chloride Level 100mmol/L (98-107) Carbon Dioxide Level 28mmol/L (21-32) Anion Gap 15 (6-14) Blood Urea Nitrogen 24mg/dL (8-26) Creatinine 3.4mg/dL (0.7-1.3) Estimated GFR (Cockcroft-Gault) 17.2 Glucose Level 181mg/dL (70-99) Calcium Level 9.0mg/dL (8.5-10.1) Allergies: Coded Allergies: No Known Medication Allergies (Verified Allergy, Unknown, 09/09/16) Medications: Current Medications Medications (Trade) Dose Ordered Sig/Dirk Route PRN Reason Start Time Stop Time Status Last Admin Dose Admin Acetaminophen/ Hydrocodone Bitart 2 tab 2 tab PRN Q4HRS PRN PO PAIN 09/09/16 14:15 09/10/16 08:48 Vancomycin HCl/ Sodium Chloride (Iv Sodium Chloride 0.9% 100ml) 100 ml @ 100 mls/hr QMWF IV 09/09/16 16:00 09/09/16 17:36 Imaging: Imaging: CT A/P w/o contrast 09/07/16 IMPRESSION 1. Colonic diverticulosis without evidence of diverticulitis. 2. Cholelithiasis. 3. Punctate calcifications within the pancreas, possibly due to the sequela of chronic pancreatitis. 4. 2.0 cm and 1.9 cm isodense to hypodense lesions within the pancreas, difficult to characterize in the absence of contrast. The possibility of cystic or solid neoplasm is not excluded. The imaging appearance does not favor pseudocysts. Correlate with pancreatic laboratory values and a pancreatic protocol CT or MRI. 5. Mild renal atrophy. 6. Percutaneous catheter or drain within the superior pelvis. 7. Stable 3.8 cm nodule or nodular thickening of the left adrenal gland. The long-term stability favors benignity. PE: GEN: NAD HEENT: Atraumatic, PERRL LUNGS: CTAB anteriorly HEART: S1S2 ABD: NABS, S/ND/NT EXTREMITY: No edema SKIN: No rashes, no jaundice NEURO/PSYCH: A & O 3, drowsy A/P: A/P: Pancreatic lesions -punctate calcifications within the pancreas (?sequela of chronic pancreatitis) , 2cm and 1.9cm isodense - hypodense lesions within the pancreas, difficult to characterize on noncontrast CT -denies h/o pancreatic issues, family notes decreased appetite this admission -CA19-9 pending Scrotal wound/cellulitis RLE wound/calciphylaxis CKD on HD, DM -- Multiple medical issues. Consider MRI to further characterize pancreatic lesions. ENRIQUE HELM Sep 10, 2016 10:11
[2016-09-10] MEDS: MORPHINE SULFATE 4 MG/ML DISP.SYRIN. IV PRN (10:43)
[2016-09-10] MEDS: AMOXICILLIN/K CLAV 500/125MG TABLET. PO SCH (10:43)
[2016-09-10] MEDS ORDERED: MAGNESIUM SULFATE 2GM 50 ML IV PRN (10:45)
[2016-09-10] MEDS: LORazepam 0.5 MG TABLET PO PRN (10:48)
--- NOTE | 2016-09-10 10:50 | PDOC ---
SUBJECTIVE ROS ESRD doing OK but no apetite, pain is a little better today CVS: no Orthopnea, no CP RESP: no SOB, no LOCO GI: no Nausea, no Vomiting : no Dysuria, no Urgency OBJECTIVE Vital Signs Vital Signs Date Time Temp Pulse Resp B/P Pulse Ox O2 Delivery O2 Flow Rate FiO2 09/10/16 08:48 16 Room Air 09/10/16 08:32 85 140/65 09/10/16 07:00 97.9 96 97.9 I & 0 Intake and Output 09/10/16 07:00 Intake Total 300 ml Output Total 0 ml Balance 300 ml Intake Oral 0 ml IV Total 300 ml Output Urine Total 0 ml PHYSICAL EXAM Physical Exam General Appearance: Awake Alert Oriented x 3 In min Distress ( Scrotal pain) Eyes: VIsion Unchanged Conjunctiva Normal EN: No EN Drainage Mucous Memb. moist Neck: no JVD no JVP Supple no Thyromegaly CVS: S1 S2 ? Murmur No Gallop No Rub no Edema Resp: no Rales no Rhonchi no Acc. Muscle use GI: BAS +ve NO Bruit Non Tender Non Distended : no CVA tenderness; no Suprapubic Tenderness Erythema/ tenderness under Penis SKIN: ? Calciphylaxis Rashes Breast Exam deferred Mu.Sk: Adequate ROM min Muscle Atrophy Heme: Unable to palpate Obvious LAD no palp Splenomegaly NEURO: Good Strength and Tone Cranial Nerves II - XII grossly intact Psych: not Depressed no Active hallucination Assessment & Plan ESRD: Current FLuid and E-lyte status does not necessitate emergent need for Dialysis. Will re-evaluate for Dialysis in am and continue on MWF schedule. Anemia: Epogen as ordered Transfuse with next HD as needed if hgb < 7.0 HTN: Current BP meds reviewed. See orders for changes. Bone & Mineral: ct Sensipar and Binders; follow phos and alter binder regimen as needed. Calciphylaxis - on NaTSO4 MWF Low Mag - replace as needed ? Scrotal Cellulitis - Abx per ID SEv Hypoalbuminemia - ? 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 at length with family (daughter) COMMENT/RELEVANT DATA Meds Current Medications Medications (Trade) Dose Ordered Sig/Dirk Start Time Stop Time Status Last Admin Dose Admin Acetaminophen (Tylenol) 500 mg 1X PRN PRN 09/09/16 07:30 09/10/16 07:29 DC Acetaminophen/ Hydrocodone Bitart (Lortab 5/325) 2 tab PRN Q4HRS PRN 09/09/16 14:15 09/10/16 08:48 2 TAB Albumin Human (Albuminar) 200 ml @ 200 mls/hr 1X PRN PRN 09/09/16 07:30 09/09/16 13:29 DC 09/09/16 09:37 200 MLS/HR Allopurinol (Zyloprim) 100 mg DAILY 09/08/16 09:00 09/10/16 08:30 100 MG Amoxicillin/ Clavulanate Potassium (Augmentin 500/ 125mg) 1 tab DAILY 09/10/16 10:00 Apixaban (Eliquis) 2.5 mg BID 09/08/16 21:00 09/10/16 08:32 2.5 MG Atorvastatin Calcium (Lipitor) 40 mg QHS 09/08/16 21:00 09/09/16 21:22 40 MG Carvedilol (Coreg) 3.125 mg BIDWMEALS 09/08/16 08:00 09/10/16 08:32 3.125 MG Cefazolin Sodium (Ancef 1gm Ivpb For Omni) 0 ml @ As Directed STK-MED ONCE 09/09/16 13:23 09/09/16 13:24 DC Cefazolin Sodium 1 gm/Sodium Chloride 500 ml @ 500 mls/hr 1X PERIOP ONCE 09/09/16 09:00 09/09/16 09:59 DC Cellulose 1 each STK-MED ONCE 09/09/16 14:12 09/09/16 14:13 DC Cellulose 1 each 1 each STK-MED ONCE 09/09/16 07:12 09/09/16 07:13 DC Cinacalcet (Sensipar) 30 mg DAILY 09/08/16 09:00 09/10/16 08:32 30 MG Clonidine HCl 0.1 mg 0.1 mg 1X PRN PRN 09/09/16 07:30 09/10/16 07:29 DC Darbepoetin Lasha (Aranesp) 60 mcg WEEKLYHS 09/08/16 21:00 09/08/16 21:06 60 MCG Dextrose (Dextrose 50%-Water Syringe) 12.5 gm PRN Q15MIN PRN 09/07/16 22:30 09/08/16 21:03 25 GM Diphenhydramine HCl (Benadryl) 25 mg 1X PRN PRN 09/09/16 07:30 09/10/16 07:29 DC Docusate Sodium (Colace) 100 mg DAILY 09/08/16 09:00 09/10/16 08:33 100 MG Fentanyl Citrate (Fentanyl 2ml Vial) 50 mcg PRN Q5MIN PRN 09/09/16 07:00 09/10/16 06:59 DC Fentanyl Citrate 100 mcg 100 mcg STK-MED ONCE 09/09/16 14:06 09/09/16 14:07 DC Fluconazole (Diflucan) 100 mg DAILY 09/08/16 09:00 09/10/16 08:32 100 MG Glimepiride (Amaryl) 4 mg DAILY 09/08/16 09:00 09/09/16 13:46 DC 09/08/16 07:59 4 MG Heparin Sodium (Porcine) 5000 unit/Sodium Chloride 505 ml @ 505 mls/hr 1X PERIOP ONCE 09/09/16 09:00 09/09/16 09:59 DC Hydromorphone HCl (Dilaudid) 0.5 mg PRN Q10MIN PRN 09/09/16 07:00 09/10/16 06:59 DC Hydromorphone HCl 1 mg 1 mg 1X ONCE 09/07/16 21:00 09/07/16 21:01 DC 09/07/16 20:59 1 MG Info (Anti-Coagulation Monitoring By Pharmacy) 1 each PRN DAILY PRN 09/07/16 23:45 09/08/16 02:30 1 EACH Info 1 each 1 each PRN DAILY PRN 09/09/16 07:30 Insulin Aspart (Novolog) 5 units TIDAC 09/10/16 11:30 Insulin Detemir (Levemir) 10 units QHS 09/10/16 21:00 Labetalol HCl (Normodyne) 10 mg PRN Q1HR PRN 09/09/16 07:30 09/10/16 07:29 DC Lidocaine HCl 20 ml STK-MED ONCE 09/09/16 14:11 09/09/16 14:12 DC Lorazepam (Ativan) 0.5 mg PRN Q6HRS PRN 09/08/16 13:00 09/08/16 14:12 0.5 MG Meropenem 1 gm/ Sodium Chloride 100 ml @ 200 mls/hr Q8HRS 09/07/16 22:00 UNV Meropenem 500 mg/ Sodium Chloride 50 ml @ 100 mls/hr QHS 09/07/16 21:00 09/08/16 07:59 DC 09/07/16 21:05 100 MLS/HR Midazolam HCl (Versed) 2 mg STK-MED ONCE 09/09/16 14:06 09/09/16 14:07 DC Morphine Sulfate 4 mg PRN Q2HR PRN 09/09/16 01:00 09/09/16 20:37 4 MG Ondansetron HCl (Zofran) 4 mg PRN Q8HRS PRN 09/07/16 22:00 09/08/16 21:59 DC 09/07/16 22:43 4 MG Papaverine HCl 60 mg 60 mg STK-MED ONCE 09/09/16 14:12 09/09/16 14:13 DC Piperacillin Sod/ Tazobactam Sod/ Sodium Chloride (Zosyn/Iv Sodium Chloride 0.9% 50ml) 50 ml @ 100 mls/hr Q8HRS 09/08/16 08:30 09/10/16 09:00 DC 09/10/16 06:11 100 MLS/HR Polyethylene Glycol (miraLAX PACKET) 17 gm PRN DAILY PRN 09/07/16 22:30 Potassium Chloride (Klor-Con) 20 meq 1X ONCE 09/07/16 23:00 09/07/16 23:01 DC 09/08/16 01:38 20 MEQ Prochlorperazine Edisylate (Compazine) 5 mg PACU PRN PRN 09/09/16 07:00 09/10/16 06:59 DC Propofol (Diprivan) 20 ml @ As Directed STK-MED ONCE 09/09/16 14:51 09/09/16 14:52 DC Sevelamer Carbonate (Renvela) 2,400 mg TIDWMEALS 09/08/16 12:00 09/10/16 08:30 2,400 MG Sodium Chloride (Iv Sodium Chloride 0.9% 500ml Bag) 500 ml @ 500 mls/hr 1X ONCE 09/07/16 21:00 09/07/16 21:59 DC 09/07/16 21:04 500 MLS/HR Sodium Chloride (Iv Sodium Chloride 0.9% 1000ml Bag) 1,000 ml @ 400 mls/hr Q2H30M PRN 09/09/16 07:30 09/09/16 19:29 DC Vancomycin HCl 1 each 1X ONCE 09/09/16 06:00 09/09/16 06:01 DC 09/09/16 06:00 1 EACH Vancomycin HCl 1.5 gm/Sodium Chloride 500 ml @ 250 mls/hr Q48H 09/09/16 22:00 09/09/16 22:00 DC Vancomycin HCl 1 each 1 each 1X ONCE 09/11/16 21:30 09/11/16 21:30 DC Vancomycin HCl/ Sodium Chloride (Iv Sodium Chloride 0.9% 100ml) 100 ml @ 100 mls/hr QMWF 09/09/16 16:00 09/09/16 17:36 100 MLS/HR Vancomycin HCl/ Sodium Chloride (Iv Sodium Chloride 0.9% 500ml Bag) 500 ml @ 250 mls/hr 1X ONCE 09/07/16 21:30 09/07/16 23:29 DC 09/07/16 22:07 250 MLS/HR Vitamin A/Vitamin D (Vitamin A & D Ointment) 1 marie TID 09/08/16 09:00 09/09/16 21:24 1 MARIE Lab Laboratory Tests Test 09/09/16 16:08 09/09/16 20:26 09/10/16 04:18 09/10/16 08:01 Glucose (Fingerstick) 178mg/dL (70-99) 188mg/dL (70-99) 180mg/dL (70-99) White Blood Count 9.7x10^3/uL (4.0-11.0) Red Blood Count 2.50x10^6/uL (4.30-5.70) Hemoglobin 8.1g/dL (13.0-17.5) Hematocrit 24.8% (39.0-53.0) Mean Corpuscular Volume 99fL (79-100) Mean Corpuscular Hemoglobin 33pg (25-35) Mean Corpuscular Hemoglobin Concent 33g/dL (31-37) Red Cell Distribution Width 16.7% (11.5-14.5) Platelet Count 238x10^3/uL (140-400) Neutrophils (%) (Auto) 82% (31-73) Lymphocytes (%) (Auto) 8% (24-48) Monocytes (%) (Auto) 6% (0-9) Eosinophils (%) (Auto) 3% (0-3) Basophils (%) (Auto) 1% (0-3) Neutrophils # (Auto) 7.9x10^3uL (1.8-7.7) Lymphocytes # (Auto) 0.8x10^3/uL (1.0-4.8) Monocytes # (Auto) 0.6x10^3/uL (0.0-1.1) Eosinophils # (Auto) 0.3x10^3/uL (0.0-0.7) Basophils # (Auto) 0.1x10^3/uL (0.0-0.2) Sodium Level 143mmol/L (136-145) Potassium Level 4.0mmol/L (3.5-5.1) Chloride Level 100mmol/L (98-107) Carbon Dioxide Level 28mmol/L (21-32) Anion Gap 15 (6-14) Blood Urea Nitrogen 24mg/dL (8-26) Creatinine 3.4mg/dL (0.7-1.3) Estimated GFR (Cockcroft-Gault) 17.2 Glucose Level 181mg/dL (70-99) Calcium Level 9.0mg/dL (8.5-10.1) FILIPPO RODRIGUES MD Sep 10, 2016 10:50
--- NOTE | 2016-09-10 13:20 | PDOC ---
PROGRESS NOTES Chief Complaint Chief Complaint scrotal cellulitis open wound ESRD on PD, now on HD dementia, mild DM2, mod control CAd S/P CABG in 2004 hypokalemia, anemia of CKD OBEsity [address] stable left addrenal gland lesion 3.8cm on CT left arm AVF 3weeks, with steal syndrome, better with AVF ligation 09/09 PAFIB on eliquis calciphylaxis plan; fu with uro, id, renal, vascular, GI check [id number] PENDING cont HD , [id number] with HD AVF ligation as per vascular 09/09 on zosyn and vanco, diflucan, cont wound care on eliquis ptot SW for rehab next week check CXR stat, albuterol prn History of Present Illness History of Present Illness vanc, zosyn, fluconazole wound RN consult pending, may need freq dressing change, wound care still scrotum wound with pus exudate, pain left hand cold with mild weakness, warmer post sx on 09/09 has PD now on HD sob, mild, vitals stable Vitals Vitals Vital Signs Date Time Temp Pulse Resp B/P Pulse Ox O2 Delivery O2 Flow Rate FiO2 09/10/16 12:14 93 25 129/64 Room Air 09/10/16 11:00 97.9 93 97.9 Physical Exam Physical Exam bl wrist ulnar pulse hard to feel, but left hand is cooler, AVF has bruits General: Alert, Cooperative, No acute distress Heart: No murmurs Lungs: Clear Abdomen: Normal bowel sounds, Soft Extremities: No cyanosis, Other (tr edema) Skin: Other (scrotal swelling, erythema and ulceration under the penis, PUS exudate seen) Labs LABS Laboratory Tests Test 09/09/16 16:08 09/09/16 20:26 09/10/16 04:18 09/10/16 08:01 Glucose (Fingerstick) 178mg/dL (70-99) 188mg/dL (70-99) 180mg/dL (70-99) White Blood Count 9.7x10^3/uL (4.0-11.0) Red Blood Count 2.50x10^6/uL (4.30-5.70) Hemoglobin 8.1g/dL (13.0-17.5) Hematocrit 24.8% (39.0-53.0) Mean Corpuscular Volume 99fL (79-100) Mean Corpuscular Hemoglobin 33pg (25-35) Mean Corpuscular Hemoglobin Concent 33g/dL (31-37) Red Cell Distribution Width 16.7% (11.5-14.5) Platelet Count 238x10^3/uL (140-400) Neutrophils (%) (Auto) 82% (31-73) Lymphocytes (%) (Auto) 8% (24-48) Monocytes (%) (Auto) 6% (0-9) Eosinophils (%) (Auto) 3% (0-3) Basophils (%) (Auto) 1% (0-3) Neutrophils # (Auto) 7.9x10^3uL (1.8-7.7) Lymphocytes # (Auto) 0.8x10^3/uL (1.0-4.8) Monocytes # (Auto) 0.6x10^3/uL (0.0-1.1) Eosinophils # (Auto) 0.3x10^3/uL (0.0-0.7) Basophils # (Auto) 0.1x10^3/uL (0.0-0.2) Sodium Level 143mmol/L (136-145) Potassium Level 4.0mmol/L (3.5-5.1) Chloride Level 100mmol/L (98-107) Carbon Dioxide Level 28mmol/L (21-32) Anion Gap 15 (6-14) Blood Urea Nitrogen 24mg/dL (8-26) Creatinine 3.4mg/dL (0.7-1.3) Estimated GFR (Cockcroft-Gault) 17.2 Glucose Level 181mg/dL (70-99) Calcium Level 9.0mg/dL (8.5-10.1) Review of Systems Review of Systems no fever, chills, chest pain Assessment and Plan Assessmemt and Plan Problems Medical Problems: (1) Open wound of scrotum Status: Acute Problems: Comment Review of Relevant I have reviewed the following items robert (where applicable) has been applied. Labs Laboratory Tests Test 09/08/16 16:33 09/08/16 20:59 09/08/16 21:14 09/09/16 04:35 Glucose (Fingerstick) 132mg/dL (70-99) 47mg/dL (70-99) 149mg/dL (70-99) Random Vancomycin Level 17.8mcg/mL Test 09/09/16 06:44 09/09/16 16:08 09/09/16 20:26 09/10/16 04:18 Glucose (Fingerstick) 99mg/dL (70-99) 178mg/dL (70-99) 188mg/dL (70-99) White Blood Count 9.7x10^3/uL (4.0-11.0) Red Blood Count 2.50x10^6/uL (4.30-5.70) Hemoglobin 8.1g/dL (13.0-17.5) Hematocrit 24.8% (39.0-53.0) Mean Corpuscular Volume 99fL (79-100) Mean Corpuscular Hemoglobin 33pg (25-35) Mean Corpuscular Hemoglobin Concent 33g/dL (31-37) Red Cell Distribution Width 16.7% (11.5-14.5) Platelet Count 238x10^3/uL (140-400) Neutrophils (%) (Auto) 82% (31-73) Lymphocytes (%) (Auto) 8% (24-48) Monocytes (%) (Auto) 6% (0-9) Eosinophils (%) (Auto) 3% (0-3) Basophils (%) (Auto) 1% (0-3) Neutrophils # (Auto) 7.9x10^3uL (1.8-7.7) Lymphocytes # (Auto) 0.8x10^3/uL (1.0-4.8) Monocytes # (Auto) 0.6x10^3/uL (0.0-1.1) Eosinophils # (Auto) 0.3x10^3/uL (0.0-0.7) Basophils # (Auto) 0.1x10^3/uL (0.0-0.2) Sodium Level 143mmol/L (136-145) Potassium Level 4.0mmol/L (3.5-5.1) Chloride Level 100mmol/L (98-107) Carbon Dioxide Level 28mmol/L (21-32) Anion Gap 15 (6-14) Blood Urea Nitrogen 24mg/dL (8-26) Creatinine 3.4mg/dL (0.7-1.3) Estimated GFR (Cockcroft-Gault) 17.2 Glucose Level 181mg/dL (70-99) Calcium Level 9.0mg/dL (8.5-10.1) Test 09/10/16 08:01 Glucose (Fingerstick) 180mg/dL (70-99) Laboratory Tests Test 09/09/16 16:08 09/09/16 20:26 09/10/16 04:18 09/10/16 08:01 Glucose (Fingerstick) 178mg/dL (70-99) 188mg/dL (70-99) 180mg/dL (70-99) White Blood Count 9.7x10^3/uL (4.0-11.0) Red Blood Count 2.50x10^6/uL (4.30-5.70) Hemoglobin 8.1g/dL (13.0-17.5) Hematocrit 24.8% (39.0-53.0) Mean Corpuscular Volume 99fL (79-100) Mean Corpuscular Hemoglobin 33pg (25-35) Mean Corpuscular Hemoglobin Concent 33g/dL (31-37) Red Cell Distribution Width 16.7% (11.5-14.5) Platelet Count 238x10^3/uL (140-400) Neutrophils (%) (Auto) 82% (31-73) Lymphocytes (%) (Auto) 8% (24-48) Monocytes (%) (Auto) 6% (0-9) Eosinophils (%) (Auto) 3% (0-3) Basophils (%) (Auto) 1% (0-3) Neutrophils # (Auto) 7.9x10^3uL (1.8-7.7) Lymphocytes # (Auto) 0.8x10^3/uL (1.0-4.8) Monocytes # (Auto) 0.6x10^3/uL (0.0-1.1) Eosinophils # (Auto) 0.3x10^3/uL (0.0-0.7) Basophils # (Auto) 0.1x10^3/uL (0.0-0.2) Sodium Level 143mmol/L (136-145) Potassium Level 4.0mmol/L (3.5-5.1) Chloride Level 100mmol/L (98-107) Carbon Dioxide Level 28mmol/L (21-32) Anion Gap 15 (6-14) Blood Urea Nitrogen 24mg/dL (8-26) Creatinine 3.4mg/dL (0.7-1.3) Estimated GFR (Cockcroft-Gault) 17.2 Glucose Level 181mg/dL (70-99) Calcium Level 9.0mg/dL (8.5-10.1) Microbiology 09/07/16 Blood Culture - Preliminary, Resulted NO GROWTH AFTER 2 DAYS Medications Current Medications Meropenem/Sodium Chloride (Merrem/Iv Sodium Chloride 0.9% 100ml) 100 ml @ 200 mls/hr Q8HRS IV ; Start 09/07/16 at 22:00; Status UNV Vancomycin HCl 1 each 1 each PRN DAILY PRN MC SEE COMMENTS Last administered on 09/09/16 14:19; Start 09/07/16 at 20:45 Sodium Chloride (Iv Sodium Chloride 0.9% 500ml Bag) 500 ml @ 500 mls/hr 1X ONCE IV Last administered on 09/07/16 21:04; Start 09/07/16 at 21:00; Stop at 21:59; Status DC Hydromorphone HCl 1 mg 1 mg 1X ONCE IV Last administered on 09/07/16 20:59; Start 09/07/16 at 21:00; Stop 09/07/16 at 21:01; Status DC Meropenem 500 mg/ Sodium Chloride 50 ml @ 100 mls/hr QHS IV Last administered on 09/07/16 21:05; Start 09/07/16 at 21:00; Stop 09/08/16 at 07:59; Status DC Vancomycin HCl/ Sodium Chloride (Iv Sodium Chloride 0.9% 500ml Bag) 500 ml @ 250 mls/hr 1X ONCE IV Last administered on 09/07/16 22:07; Start 09/07/16 at 21:30; Stop 09/07/16 at 23:29; Status DC Ondansetron HCl (Zofran) 4 mg PRN Q8HRS PRN IV NAUSEA/VOMITING Last administered on 09/07/16 22:43; Start 09/07/16 at 22:00; Stop 09/08/16 at 21:59 ; Status DC Morphine Sulfate 4 mg 4 mg PRN Q2HR PRN IV SEVERE PAIN Last administered on 21:12; Start 09/07/16 at 22:00; Stop 09/08/16 at 21:59; Status DC Sodium Chloride (Iv Sodium Chloride 0.9% 1000ml Bag) 1,000 ml @ 75 mls/hr [id number] IV Last administered on 09/08/16 12:56; Start 09/07/16 at 21:52; Stop 09/08/16 at 21:51; Status DC Insulin Aspart (Novolog) 0-7 UNITS TIDWMEALS SQ ; Start 09/08/16 at 08:00; Stop 09/08/16 at 08:00; Status DC Dextrose (Dextrose 50%-Water Syringe) 12.5 gm PRN Q15MIN PRN IV SEE COMMENTS Last administered on 09/08/16 21:03; Start 09/07/16 at 22:30 Allopurinol (Zyloprim) 100 mg DAILY PO Last administered on 09/10/16 08:30; Start 09/08/16 at 09:00 Apixaban (Eliquis) 2.5 mg DAILY PO Last administered on 09/08/16 07:59; Start 09/08/16 at 09:00; Stop 09/08/16 at 10:43; Status DC Atorvastatin Calcium (Lipitor) 40 mg QHS PO Last administered on 09/09/16 21: 22; Start 09/08/16 at 21:00 Carvedilol (Coreg) 3.125 mg BIDWMEALS PO Last administered on 09/10/16 08:32; Start 09/08/16 at 08:00 Cinacalcet (Sensipar) 30 mg DAILY PO Last administered on 09/10/16 08:32; Start 09/08/16 at 09:00 Glimepiride (Amaryl) 4 mg DAILY PO Last administered on 09/08/16 07:59; Start 09/08/16 at 09:00; Stop 09/09/16 at 13:46; Status DC Acetaminophen/ Hydrocodone Bitart (Lortab 5/325) 1 tab PRN Q6HRS PRN PO SEVERE PAIN Last administered on 09/09/16 06:16; Start 09/07/16 at 22:30; Stop at 14:14; Status DC Polyethylene Glycol (miraLAX PACKET) 17 gm PRN DAILY PRN PO CONSTIPATION; Start 09/07/16 at 22:30 Sevelamer Carbonate (Renvela) 2.4 gm TIDWMEALS PO Last administered on 07:59; Start 09/08/16 at 08:00; Stop 09/08/16 at 12:01; Status DC Vitamin A/Vitamin D (Vitamin A & D Ointment) 1 katie TID TP Last administered on 09/09/16 21:24; Start 09/08/16 at 09:00 Docusate Sodium (Colace) 100 mg PRN DAILY PRN PO CONSTIPATION; Start 09/07/16 at 22:45 Docusate Sodium (Colace) 100 mg DAILY PO Last administered on 09/10/16 08:33; Start 09/08/16 at 09:00 Potassium Chloride (Klor-Con) 20 meq 1X ONCE PO Last administered on 01:38; Start 09/07/16 at 23:00; Stop 09/07/16 at 23:01; Status DC Insulin Aspart (Novolog) 0-7 UNITS QIDACHS SQ Last administered on 09/10/16 08 :41; Start 09/07/16 at 22:45 Info (Anti-Coagulation Monitoring By Pharmacy) 1 each PRN DAILY PRN MC SEE COMMENTS Last administered on 09/08/16 02:30; Start 09/07/16 at 23:45 Vancomycin HCl 1 each 1 each 1X ONCE MC ; Start 09/11/16 at 21:30; Stop at 21:30; Status DC Vancomycin HCl 1.5 gm/Sodium Chloride 500 ml @ 250 mls/hr Q48H IV ; Start 09/09 at 22:00; Stop 09/09/16 at 22:00; Status DC Piperacillin Sod/ Tazobactam Sod/ Sodium Chloride (Zosyn/Iv Sodium Chloride 0.9 % 50ml) 50 ml @ 100 mls/hr Q8HRS IV Last administered on 09/10/16 06:11; Start 09/08/16 at 08:30; Stop 09/10/16 at 09:00; Status DC Fluconazole (Diflucan) 100 mg DAILY PO Last administered on 09/10/16 08:32; Start 09/08/16 at 09:00 Darbepoetin Lasha (Aranesp) 60 mcg WEEKLYHS SQ Last administered on 09/08/16 21 :06; Start 09/08/16 at 21:00 Apixaban (Eliquis) 2.5 mg BID PO Last administered on 09/10/16 08:32; Start at 21:00 Vancomycin HCl 1 each 1X ONCE MC Last administered on 09/09/16 06:00; Start 09/09/16 at 06:00; Stop 09/09/16 at 06:01; Status DC Sevelamer Carbonate (Renvela) 2,400 mg TIDWMEALS PO Last administered on 08:30; Start 09/08/16 at 12:00 Insulin Aspart (Novolog) 8 units TIDAC SQ Last administered on 09/10/16 08:41 ; Start 09/08/16 at 12:00; Stop 09/10/16 at 10:17; Status DC Lorazepam (Ativan) 0.5 mg PRN Q6HRS PRN PO ANXIETY / AGITATION Last administered on 09/10/16 10:48; Start 09/08/16 at 13:00 Fentanyl Citrate (Fentanyl 2ml Vial) 25 mcg PRN Q5MIN PRN IV MILD PAIN; Start 09/09/16 at 07:00; Stop 09/10/16 at 06:59; Status DC Fentanyl Citrate (Fentanyl 2ml Vial) 50 mcg PRN Q5MIN PRN IV MODERATE PAIN; Start 09/09/16 at 07:00; Stop 09/10/16 at 06:59; Status DC Morphine Sulfate 1 mg PRN Q10MIN PRN IV SEVERE PAIN; Start 09/09/16 at 07:00; Stop 09/10/16 at 06:59; Status DC Lidocaine HCl 2 ml PRN 1X PRN ID PRIOR TO IV START; Start 09/09/16 at 07:00; Stop 09/10/16 at 06:59; Status DC Hydromorphone HCl (Dilaudid) 0.5 mg PRN Q10MIN PRN IV SEV PAIN, Second choice; Start 09/09/16 at 07:00; Stop 09/10/16 at 06:59; Status DC Prochlorperazine Edisylate 5 mg 5 mg PACU PRN PRN IV NAUSEA, MRX1; Start at 07:00; Stop 09/10/16 at 06:59; Status DC Sodium Chloride (Iv Sodium Chloride 0.9% 1000ml Bag) 1,000 ml @ 0 mls/hr Q0M IV ; Start 09/09/16 at 12:00; Stop 09/10/16 at 10:51; Status DC Morphine Sulfate 4 mg PRN Q2HR PRN IV SEVERE PAIN Last administered on t 10:43; Start 09/09/16 at 01:00 Lidocaine HCl 30 ml STK-MED ONCE .ROUTE ; Start 09/09/16 at 07:12; Stop at 07:13; Status DC Cellulose 1 each STK-MED ONCE .ROUTE ; Start 09/09/16 at 07:12; Stop 09/09/16 at 07:13; Status DC Papaverine HCl 60 mg 60 mg STK-MED ONCE .ROUTE ; Start 09/09/16 at 07:13; Stop 09/09/16 at 07:14; Status DC Sodium Chloride 1,000 ml @ 1,000 mls/hr Q1H PRN IV hypotension; Start 09/09/16 at 07:30; Stop 09/09/16 at 13:29; Status DC Albumin Human (Albuminar) 200 ml @ 200 mls/hr 1X PRN PRN IV Hypotension Last administered on 09/09/16 09:37; Start 09/09/16 at 07:30; Stop 09/09/16 at 13:29 ; Status DC Acetaminophen (Tylenol) 500 mg 1X PRN PRN PO MILD PAIN / TEMP; Start 09/09/16 at 07:30; Stop 09/10/16 at 07:29; Status DC Diphenhydramine HCl (Benadryl) 25 mg 1X PRN PRN IV ITCHING; Start 09/09/16 at 07:30; Stop 09/10/16 at 07:29; Status DC Diphenhydramine HCl (Benadryl) 25 mg 1X PRN PRN IV ITCHING; Start 09/09/16 at 07:30; Stop 09/10/16 at 07:29; Status DC Labetalol HCl (Normodyne) 10 mg PRN Q1HR PRN IVP SBP > 180; Start 09/09/16 at 07:30; Stop 09/10/16 at 07:29; Status DC Clonidine HCl 0.1 mg 0.1 mg 1X PRN PRN PO SBP > 180; Start 09/09/16 at 07:30; Stop 09/10/16 at 07:29; Status DC Sodium Chloride (Iv Sodium Chloride 0.9% 1000ml Bag) 1,000 ml @ 400 mls/hr Q2H30M PRN IV PATENCY; Start 09/09/16 at 07:30; Stop 09/09/16 at 19:29; Status DC Info 1 each 1 each PRN DAILY PRN MC SEE COMMENTS; Start 09/09/16 at 07:30 Heparin Sodium (Porcine) 5000 unit/Sodium Chloride 505 ml @ 505 mls/hr 1X PERIOP ONCE IRR ; Start 09/09/16 at 09:00; Stop 09/09/16 at 09:59; Status DC Cefazolin Sodium 1 gm/Sodium Chloride 500 ml @ 500 mls/hr 1X PERIOP ONCE IRR ; Start 09/09/16 at 09:00; Stop 09/09/16 at 09:59; Status DC Cefazolin Sodium (Ancef 1gm Ivpb For Omni) 0 ml @ As Directed STK-MED ONCE IV ; Start 09/09/16 at 13:23; Stop 09/09/16 at 13:24; Status DC Acetaminophen/ Hydrocodone Bitart (Lortab 5/325) 1 tab PRN Q4HRS PRN PO PAIN; Start 09/09/16 at 14:15 Acetaminophen/ Hydrocodone Bitart (Lortab 5/325) 2 tab PRN Q4HRS PRN PO PAIN Last administered on 09/10/16t 08:48; Start 09/09/16 at 14:15 Midazolam HCl (Versed) 2 mg STK-MED ONCE .ROUTE ; Start 09/09/16 at 14:06; Stop 09/09/16 at 14:07; Status DC Fentanyl Citrate 100 mcg 100 mcg STK-MED ONCE .ROUTE ; Start 09/09/16 at 14:06; Stop 09/09/16 at 14:07; Status DC Vancomycin HCl/ Sodium Chloride (Iv Sodium Chloride 0.9% 100ml) 100 ml @ 100 mls/hr QMWF IV Last administered on 09/09/16t 17:36; Start 09/09/16 at 16:00 Lidocaine HCl 20 ml STK-MED ONCE .ROUTE ; Start 09/09/16 at 14:11; Stop at 14:12; Status DC Lidocaine HCl 20 ml STK-MED ONCE .ROUTE ; Start 09/09/16 at 14:11; Stop at 14:12; Status DC Cellulose 1 each STK-MED ONCE .ROUTE ; Start 09/09/16 at 14:12; Stop 09/09/16 at 14:13; Status DC Papaverine HCl 60 mg 60 mg STK-MED ONCE .ROUTE ; Start 09/09/16 at 14:12; Stop 09/09/16 at 14:13; Status DC Propofol (Diprivan) 20 ml @ As Directed STK-MED ONCE IV ; Start 09/09/16 at 14: 51; Stop 09/09/16 at 14:52; Status DC Amoxicillin/ Clavulanate Potassium (Augmentin 500/ 125mg) 1 tab DAILY PO Last administered on 09/10/16t 10:43; Start 09/10/16 at 10:00 Insulin Aspart (Novolog) 5 units TIDAC SQ ; Start 09/10/16 at 11:30 Insulin Detemir (Levemir) 10 units QHS SQ ; Start 09/10/16 at 21:00 Sodium Thiosulfate 25 gm 25 gm 3X/WEEK IV ; Start 09/11/16 at 09:00; Status UNV Magnesium Sulfate/ Dextrose 50 ml @ 25 mls/hr PRN DAILY PRN IV for Mag < 1.7 on am labs; Start 09/10/16 at 10:45 Sodium Thiosulfate 25 gm/ Sodium Chloride 100 ml @ 100 mls/hr 3X/WEEK@16 IV ; Start 09/11/16 at 16:00 Amino Acids/ Glycerin/ Electrolytes (Procalamine) 1,000 ml @ 80 mls/hr [id number] IV ; Start 09/10/16 at 11:30 Fentanyl Citrate (Fentanyl 2ml Vial) 25 mcg PRN Q2HR PRN IV PAIN; Start at 13:00 Active Scripts Active Mupirocin Ointment (Mupirocin) 22 Gm Oint...g. 1 Katie TP TID Vitamin A & D Ointment (Vits A & D/White Pet/Lanolin) 56.7 Gm Oint...g. 1 Katie TP TID Diflucan (Fluconazole) 100 Mg Tablet 100 Mg PO DAILY Allopurinol 100 Mg Tablet 100 Mg PO DAILY Hydrocodone-Apap 5-325 (Hydrocodone Bit/Acetaminophen) 1 Each Tablet 1 Tab PO Q6HRS PRN Eliquis (Apixaban) 2.5 Mg Tablet 2.5 Mg PO DAILY Renvela (Sevelamer Carbonate) 2.4 Gm Powd.pack 2.4 Gm PO TIDWMEALS Miralax (Polyethylene Glycol 3350) 17 Gm Powd.pack 17 Gm PO PRN DAILY PRN Carvedilol 3.125 Mg Tablet 3.125 Mg PO BIDWMEALS Reported Sensipar (Cinacalcet Hcl) 30 Mg Tablet 1 Tab PO DAILY Glimepiride 2 Mg Tablet 4 Mg PO DAILY Novolog (Insulin Aspart) 100 Unit/1 Ml Cartridge 8 Unit SQ TIDAC Atorvastatin Calcium 40 Mg Tablet 1 Tab PO DAILY Vitals/I & O Vital Sign - Last 24 Hours 09/09/16 09/09/16 09/09/16 09/09/16 14:53 14:55 15:08 15:23 Temp 97.7 97.7 Pulse 12 93 101 Resp 16 14 14 B/P 95/75 123/57 134/62 Pulse Ox 97 99 97 O2 Delivery Room Air Room Air Room Air Room Air Nasal Cannula 09/09/16 09/09/16 09/09/16 09/09/16 17:00 17:15 17:35 19:00 Temp 97.9 97.9 97.9 97.9 Pulse 101 85 101 79 Resp 22 20 B/P 128/58 127/62 134/62 106/61 Pulse Ox 94 94 92 O2 Delivery Room Air Room Air Room Air 09/09/16 09/09/16 09/09/16 09/09/16 19:40 20:37 21:22 23:02 Temp 97.9 97.9 Pulse 76 Resp 18 B/P 138/60 Pulse Ox 94 O2 Delivery Room Air Room Air Room Air Room Air 09/10/16 09/10/16 09/10/16 09/10/16 03:00 04:57 07:00 08:32 Temp 98.0 97.9 98.0 97.9 Pulse 90 84 85 Resp 18 20 B/P 137/62 137/69 140/65 Pulse Ox 98 96 O2 Delivery Room Air Room Air Room Air 09/10/16 09/10/16 09/10/16 09/10/16 08:48 09:48 10:43 11:00 Temp 97.9 97.9 Pulse 80 Resp 16 20 20 20 B/P 126/64 Pulse Ox 93 O2 Delivery Room Air Room Air Room Air Room Air 09/10/16 09/10/16 11:13 12:14 Pulse 93 Resp 16 25 B/P 129/64 O2 Delivery Room Air Room Air Intake and Output 09/09/16 09/09/16 09/10/16 15:00 23:00 07:00 Intake Total 300 ml 0 ml Output Total 0 ml Balance 300 ml 0 ml 0 ml YARED MOSELEY MD Sep 10, 2016 13:20
[2016-09-10] MEDS ORDERED: ALBUTEROL SULFATE 2.5 MG/3 ML NEBU. NEB PRN (13:30)
[2016-09-10] MEDS ORDERED: traMADol 50 MG TABLET PO PRN (13:45)
--- NOTE | 2016-09-10 13:45 | RAD ---
Portable chest, 09/10/2016: History: Shortness of breath Comparison is made to a study from 08/22/2016. A right jugular dialysis type catheter extends to the level of the atriocaval junction. There has been a previous median sternotomy. The heart is mildly enlarged. The pulmonary vascularity is now at the upper limits of normal. There is mild ongoing left perihilar linear atelectasis or scarring. No pulmonary consolidation is seen. There is no evidence of pleural fluid. IMPRESSION: 1. Borderline vascular congestion. 2. Mild left parahilar atelectasis and/or scarring
[2016-09-10] MEDS: VANCOMYCIN PER PHARMACY MC PRN (14:51)
[2016-09-10] MEDS: AMINO AC 3%/ELECTROLYTE/GLYCER 1,000 ML IV SCH (14:51)
--- NOTE | 2016-09-10 17:20 | PDOC ---
Provider Note Provider Note Vascular Surgery Patient resting in bed. AF VSS awake and alert Left antecubital incision intact, palpable left radial pulse A/P: s/p ligation of brachiobasilic fistula for steal symptoms - Dressing in place - continue current medical care. TERRANCE VILLASEÑOR MD Sep 10, 2016 17:20
[2016-09-10] MEDS ORDERED: CALCIUM CARBONATE 500 MG TAB.CHEW PO PRN (19:15)
[2016-09-10] MEDS: ONDANSETRON PF 4 MG/2 ML VIAL. IV PRN (19:26)
[2016-09-10] MEDS ORDERED: INSULIN DETEMIR 300 UNITS/3 ML INSULN.PEN. SQ SCH (21:00)
[2016-09-10] MEDS: PANTOPRAZOLE 40 MG TABLET.DR. PO SCH (21:25)
[2016-09-10] MEDS: ATORVASTATIN CALCIUM 40 MG TABLET. PO SCH (21:25)
[2016-09-11] VITALS (7 sets, daily range): BP systolic 121–142; BP diastolic 69–81
[2016-09-11] MEDS: AMINO AC 3%/ELECTROLYTE/GLYCER 1,000 ML IV SCH ×2 (01:27→11:46)
[2016-09-11] MEDS: HYDROcodone/APAP 5/325MG 1 TAB TABLET PO PRN ×2 (01:27→04:49)
[2016-09-11] MEDS: ONDANSETRON PF 4 MG/2 ML VIAL. IV PRN ×2 (01:36→08:39)
[2016-09-11] MEDS: LORazepam 0.5 MG TABLET PO PRN ×2 (04:34→11:45)
[2016-09-11 05:16] LABS: ALBUMIN 2.3 g/dL (3.4-5.0); CALCIUM 8.5 mg/dL (8.5-10.1); CREATININE 4.7 mg/dL (0.7-1.3); GFR 11.8; PHOSPHORUS 4.6 mg/dL (2.6-4.7)
[2016-09-11] MEDS: INSULIN ASPART 300 UNITS/3 ML INSULN.PEN SQ SCH ×7 (07:30→21:13)
[2016-09-11] MEDS: CARVEDILOL 3.125 MG TABLET. PO SCH ×2 (08:00→16:49)
[2016-09-11] MEDS: SEVELAMER CARBONATE 800 MG TABLET. PO SCH ×3 (08:00→16:50)
[2016-09-11] MEDS: PANTOPRAZOLE 40 MG TABLET.DR. PO SCH (08:38)
[2016-09-11] MEDS: VITS A & D/LANOLIN TOPICAL OINTMENT 56GM TUBE. TP SCH ×3 (08:39→21:00)
[2016-09-11] MEDS: DOCUSATE SODIUM 100 MG CAPSULE. PO SCH (09:00)
[2016-09-11] MEDS ORDERED: SODIUM THIOSULFATE 12.5 GM/50 ML IV SCH (09:00)
[2016-09-11] MEDS: AMOXICILLIN/K CLAV 500/125MG TABLET. PO SCH (09:00)
--- NOTE | 2016-09-11 09:56 | PDOC ---
Provider Note Provider Note vascular POD#1 complains of severe nausea today, does not want dialysis hand feels better good cell tender IMP : GI upset source unknown PLAN per IM and GI medicine EMI VICENTE MD Sep 11, 2016 09:56
[2016-09-11] MEDS ORDERED: PROCHLORPERAZINE 10 MG/2 ML VIAL. IV PRN (10:30)
[2016-09-11] MEDS ORDERED: METOCLOPRAMIDE HCL 10 MG/2 ML VIAL. IV PRN (10:45)
--- NOTE | 2016-09-11 10:47 | PDOC ---
Infectious Disease Note Subjective Subjective Nausea today. Doesn't want to do HD Feels distended Less painful but tired of pain overall ROS ROS GEN: Denies fevers, chills, sweats HEENT: Denies blurred vision, sore throat CV: Denies chest pain RESP: Denies shortness of air, cough GI: Denies n/v/d NEURO: Denies confusion, dizziness MSK: Denies weakness, joint pain/swelling Vital Sign Vital Signs Vital Signs Date Time Temp Pulse Resp B/P Pulse Ox O2 Delivery O2 Flow Rate FiO2 09/11/16 09:40 Room Air 09/11/16 07:00 98.4 105 20 134/76 91 98.4 Physical Exam PHYSICAL EXAM GENERAL: NAD, Alert.- looks tired today HEENT: PERRL, s/p cataracts NECK: Supple, no JVD, no LN LUNGS: Clear HEART: S1S2, no gallop, no murmur ABD: Soft, NT, no organomegaly, no rebound, obese, mild distension less induration/erythema and tenderness EXT: No edema, no cyanosis. Incision LUE dressed. arm warm. 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 x 3, no focal neurologic deficit SKIN: No rash IV: ok Labs Lab Laboratory Tests Test 09/10/16 20:34 09/11/16 04:20 09/11/16 07:53 09/11/16 07:59 Glucose (Fingerstick) 214mg/dL (70-99) 280mg/dL (70-99) 268mg/dL (70-99) Hemoglobin 8.2g/dL (13.0-17.5) Sodium Level 140mmol/L (136-145) Potassium Level 4.0mmol/L (3.5-5.1) Chloride Level 97mmol/L (98-107) Carbon Dioxide Level 30mmol/L (21-32) Anion Gap 13 (6-14) Blood Urea Nitrogen 40mg/dL (8-26) Creatinine 4.7mg/dL (0.7-1.3) Estimated GFR (Cockcroft-Gault) 11.8 Glucose Level 223mg/dL (70-99) Calcium Level 8.5mg/dL (8.5-10.1) Phosphorus Level 4.6mg/dL (2.6-4.7) Magnesium Level 1.7mg/dL (1.8-2.4) Albumin 2.3g/dL (3.4-5.0) Objective Assessment Scrotal wound Scrotal cellulitis - better S/p LUE Ligation 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 Pancreatic lesions on CT Plan Plan of Care Cont Vanc/Fluconazole D/c Augmentin and restart Zosyn ? cause nausea F/u labs local wound care to RLE D/w family NURIA VELEZ MD Sep 11, 2016 10:46
[2016-09-11] MEDS: CINACALCET HCL 30 MG TABLET PO SCH (12:20)
[2016-09-11] MEDS: FLUCONAZOLE 100 MG TABLET. PO SCH (12:20)
[2016-09-11] MEDS: APIXABAN 2.5 MG TABLET. PO SCH ×2 (12:20→20:55)
[2016-09-11] MEDS: ALLOPURINOL 100 MG TABLET. PO SCH (12:20)
[2016-09-11] MEDS: VANCOMYCIN PER PHARMACY MC PRN (12:58)
--- NOTE | 2016-09-11 14:15 | PDOC ---
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 i explained for 10min, that CA199 is pending, and defer to GI if need more image. Pt seems not want HD, add more meds for nausea, check KUB, defer to renal if want cont PD. Cr not decreasing much with HD. History of Present Illness History of Present Illness wound RN consult pending, may need freq dressing change, wound care still scrotum wound with pus exudate, pain left hand cold with mild weakness, warmer post sx on 09/09 has PD now on HD sob, mild, vitals stable very nauseated, low po intake, doesnot want HD which makes him uncomfortable Vitals Vitals Vital Signs Date Time Temp Pulse Resp B/P Pulse Ox O2 Delivery O2 Flow Rate FiO2 09/11/16 11:00 97.4 97 20 135/73 90 Room Air 97.4 Physical Exam Physical Exam bl wrist ulnar pulse hard to feel, but left hand is cooler, AVF has bruits General: Alert, Cooperative, No acute distress Heart: No murmurs Lungs: Clear Abdomen: Normal bowel sounds, Soft Extremities: No cyanosis, Other (tr edema) Skin: Other (scrotal swelling, erythema and ulceration under the penis, PUS exudate seen) Labs LABS Laboratory Tests Test 09/10/16 16:29 09/10/16 20:34 09/11/16 04:20 09/11/16 07:53 Glucose (Fingerstick) 154mg/dL (70-99) 214mg/dL (70-99) 280mg/dL (70-99) Hemoglobin 8.2g/dL (13.0-17.5) Sodium Level 140mmol/L (136-145) Potassium Level 4.0mmol/L (3.5-5.1) Chloride Level 97mmol/L (98-107) Carbon Dioxide Level 30mmol/L (21-32) Anion Gap 13 (6-14) Blood Urea Nitrogen 40mg/dL (8-26) Creatinine 4.7mg/dL (0.7-1.3) Estimated GFR (Cockcroft-Gault) 11.8 Glucose Level 223mg/dL (70-99) Calcium Level 8.5mg/dL (8.5-10.1) Phosphorus Level 4.6mg/dL (2.6-4.7) Magnesium Level 1.7mg/dL (1.8-2.4) Albumin 2.3g/dL (3.4-5.0) Test 09/11/16 07:59 09/11/16 11:46 Glucose (Fingerstick) 268mg/dL (70-99) 287mg/dL (70-99) Review of Systems Review of Systems no fever, chills, sob or chest pain Assessment and Plan Assessmemt and Plan Problems Medical Problems: (1) Open wound of scrotum Status: Acute Problems: Comment Review of Relevant I have reviewed the following items robert (where applicable) has been applied. Labs Laboratory Tests Test 09/09/16 16:08 09/09/16 20:26 09/10/16 04:18 09/10/16 08:01 Glucose (Fingerstick) 178mg/dL (70-99) 188mg/dL (70-99) 180mg/dL (70-99) White Blood Count 9.7x10^3/uL (4.0-11.0) Red Blood Count 2.50x10^6/uL (4.30-5.70) Hemoglobin 8.1g/dL (13.0-17.5) Hematocrit 24.8% (39.0-53.0) Mean Corpuscular Volume 99fL (79-100) Mean Corpuscular Hemoglobin 33pg (25-35) Mean Corpuscular Hemoglobin Concent 33g/dL (31-37) Red Cell Distribution Width 16.7% (11.5-14.5) Platelet Count 238x10^3/uL (140-400) Neutrophils (%) (Auto) 82% (31-73) Lymphocytes (%) (Auto) 8% (24-48) Monocytes (%) (Auto) 6% (0-9) Eosinophils (%) (Auto) 3% (0-3) Basophils (%) (Auto) 1% (0-3) Neutrophils # (Auto) 7.9x10^3uL (1.8-7.7) Lymphocytes # (Auto) 0.8x10^3/uL (1.0-4.8) Monocytes # (Auto) 0.6x10^3/uL (0.0-1.1) Eosinophils # (Auto) 0.3x10^3/uL (0.0-0.7) Basophils # (Auto) 0.1x10^3/uL (0.0-0.2) Sodium Level 143mmol/L (136-145) Potassium Level 4.0mmol/L (3.5-5.1) Chloride Level 100mmol/L (98-107) Carbon Dioxide Level 28mmol/L (21-32) Anion Gap 15 (6-14) Blood Urea Nitrogen 24mg/dL (8-26) Creatinine 3.4mg/dL (0.7-1.3) Estimated GFR (Cockcroft-Gault) 17.2 Glucose Level 181mg/dL (70-99) Calcium Level 9.0mg/dL (8.5-10.1) Test 09/10/16 12:03 09/10/16 16:29 09/10/16 20:34 09/11/16 04:20 Glucose (Fingerstick) 136mg/dL (70-99) 154mg/dL (70-99) 214mg/dL (70-99) Hemoglobin 8.2g/dL (13.0-17.5) Sodium Level 140mmol/L (136-145) Potassium Level 4.0mmol/L (3.5-5.1) Chloride Level 97mmol/L (98-107) Carbon Dioxide Level 30mmol/L (21-32) Anion Gap 13 (6-14) Blood Urea Nitrogen 40mg/dL (8-26) Creatinine 4.7mg/dL (0.7-1.3) Estimated GFR (Cockcroft-Gault) 11.8 Glucose Level 223mg/dL (70-99) Calcium Level 8.5mg/dL (8.5-10.1) Phosphorus Level 4.6mg/dL (2.6-4.7) Magnesium Level 1.7mg/dL (1.8-2.4) Albumin 2.3g/dL (3.4-5.0) Test 09/11/16 07:53 09/11/16 07:59 09/11/16 11:46 Glucose (Fingerstick) 280mg/dL (70-99) 268mg/dL (70-99) 287mg/dL (70-99) Laboratory Tests Test 09/10/16 16:29 09/10/16 20:34 09/11/16 04:20 09/11/16 07:53 Glucose (Fingerstick) 154mg/dL (70-99) 214mg/dL (70-99) 280mg/dL (70-99) Hemoglobin 8.2g/dL (13.0-17.5) Sodium Level 140mmol/L (136-145) Potassium Level 4.0mmol/L (3.5-5.1) Chloride Level 97mmol/L (98-107) Carbon Dioxide Level 30mmol/L (21-32) Anion Gap 13 (6-14) Blood Urea Nitrogen 40mg/dL (8-26) Creatinine 4.7mg/dL (0.7-1.3) Estimated GFR (Cockcroft-Gault) 11.8 Glucose Level 223mg/dL (70-99) Calcium Level 8.5mg/dL (8.5-10.1) Phosphorus Level 4.6mg/dL (2.6-4.7) Magnesium Level 1.7mg/dL (1.8-2.4) Albumin 2.3g/dL (3.4-5.0) Test 09/11/16 07:59 09/11/16 11:46 Glucose (Fingerstick) 268mg/dL (70-99) 287mg/dL (70-99) Microbiology 09/07/16 Blood Culture - Preliminary, Resulted NO GROWTH AFTER 3 DAYS Medications Current Medications Meropenem/Sodium Chloride (Merrem/Iv Sodium Chloride 0.9% 100ml) 100 ml @ 200 mls/hr Q8HRS IV ; Start 09/07/16 at 22:00; Status UNV Vancomycin HCl 1 each 1 each PRN DAILY PRN MC SEE COMMENTS Last administered on 09/11/16 12:58; Start 09/07/16 at 20:45 Sodium Chloride (Iv Sodium Chloride 0.9% 500ml Bag) 500 ml @ 500 mls/hr 1X ONCE IV Last administered on 09/07/16 21:04; Start 09/07/16 at 21:00; Stop at 21:59; Status DC Hydromorphone HCl 1 mg 1 mg 1X ONCE IV Last administered on 09/07/16 20:59; Start 09/07/16 at 21:00; Stop 09/07/16 at 21:01; Status DC Meropenem 500 mg/ Sodium Chloride 50 ml @ 100 mls/hr QHS IV Last administered on 09/07/16 21:05; Start 09/07/16 at 21:00; Stop 09/08/16 at 07:59; Status DC Vancomycin HCl/ Sodium Chloride (Iv Sodium Chloride 0.9% 500ml Bag) 500 ml @ 250 mls/hr 1X ONCE IV Last administered on 09/07/16 22:07; Start 09/07/16 at 21:30; Stop 09/07/16 at 23:29; Status DC Ondansetron HCl (Zofran) 4 mg PRN Q8HRS PRN IV NAUSEA/VOMITING Last administered on 09/07/16 22:43; Start 09/07/16 at 22:00; Stop 09/08/16 at 21:59 ; Status DC Morphine Sulfate 4 mg 4 mg PRN Q2HR PRN IV SEVERE PAIN Last administered on 21:12; Start 09/07/16 at 22:00; Stop 09/08/16 at 21:59; Status DC Sodium Chloride (Iv Sodium Chloride 0.9% 1000ml Bag) 1,000 ml @ 75 mls/hr [id number] IV Last administered on 09/08/16 12:56; Start 09/07/16 at 21:52; Stop 09/08/16 at 21:51; Status DC Insulin Aspart (Novolog) 0-7 UNITS TIDWMEALS SQ ; Start 09/08/16 at 08:00; Stop 09/08/16 at 08:00; Status DC Dextrose (Dextrose 50%-Water Syringe) 12.5 gm PRN Q15MIN PRN IV SEE COMMENTS Last administered on 09/08/16 21:03; Start 09/07/16 at 22:30 Allopurinol (Zyloprim) 100 mg DAILY PO Last administered on 09/11/16 12:20; Start 09/08/16 at 09:00 Apixaban (Eliquis) 2.5 mg DAILY PO Last administered on 09/08/16 07:59; Start 09/08/16 at 09:00; Stop 09/08/16 at 10:43; Status DC Atorvastatin Calcium (Lipitor) 40 mg QHS PO Last administered on 09/10/16 21: 25; Start 09/08/16 at 21:00 Carvedilol (Coreg) 3.125 mg BIDWMEALS PO Last administered on 09/10/16 18:25; Start 09/08/16 at 08:00 Cinacalcet (Sensipar) 30 mg DAILY PO Last administered on 09/11/16 12:20; Start 09/08/16 at 09:00 Glimepiride (Amaryl) 4 mg DAILY PO Last administered on 09/08/16 07:59; Start 09/08/16 at 09:00; Stop 09/09/16 at 13:46; Status DC Acetaminophen/ Hydrocodone Bitart (Lortab 5/325) 1 tab PRN Q6HRS PRN PO SEVERE PAIN Last administered on 09/09/16 06:16; Start 09/07/16 at 22:30; Stop at 14:14; Status DC Polyethylene Glycol (miraLAX PACKET) 17 gm PRN DAILY PRN PO CONSTIPATION; Start 09/07/16 at 22:30 Sevelamer Carbonate (Renvela) 2.4 gm TIDWMEALS PO Last administered on 07:59; Start 09/08/16 at 08:00; Stop 09/08/16 at 12:01; Status DC Vitamin A/Vitamin D (Vitamin A & D Ointment) 1 katie TID TP Last administered on 09/11/16 08:39; Start 09/08/16 at 09:00 Docusate Sodium (Colace) 100 mg PRN DAILY PRN PO CONSTIPATION; Start 09/07/16 at 22:45 Docusate Sodium (Colace) 100 mg DAILY PO Last administered on 09/10/16 08:33; Start 09/08/16 at 09:00 Potassium Chloride (Klor-Con) 20 meq 1X ONCE PO Last administered on 01:38; Start 09/07/16 at 23:00; Stop 09/07/16 at 23:01; Status DC Insulin Aspart (Novolog) 0-7 UNITS QIDACHS SQ Last administered on 09/11/16 12 :30; Start 09/07/16 at 22:45 Info (Anti-Coagulation Monitoring By Pharmacy) 1 each PRN DAILY PRN MC SEE COMMENTS Last administered on 09/08/16 02:30; Start 09/07/16 at 23:45 Vancomycin HCl 1 each 1 each 1X ONCE MC ; Start 09/11/16 at 21:30; Stop at 21:30; Status DC Vancomycin HCl 1.5 gm/Sodium Chloride 500 ml @ 250 mls/hr Q48H IV ; Start 09/09 at 22:00; Stop 09/09/16 at 22:00; Status DC Piperacillin Sod/ Tazobactam Sod/ Sodium Chloride (Zosyn/Iv Sodium Chloride 0.9 % 50ml) 50 ml @ 100 mls/hr Q8HRS IV Last administered on 09/10/16 06:11; Start 09/08/16 at 08:30; Stop 09/10/16 at 09:00; Status DC Fluconazole (Diflucan) 100 mg DAILY PO Last administered on 09/11/16 12:20; Start 09/08/16 at 09:00 Darbepoetin Lasha (Aranesp) 60 mcg WEEKLYHS SQ Last administered on 09/08/16 21 :06; Start 09/08/16 at 21:00 Apixaban (Eliquis) 2.5 mg BID PO Last administered on 09/11/16 12:20; Start at 21:00 Vancomycin HCl 1 each 1X ONCE MC Last administered on 09/09/16 06:00; Start 09/09/16 at 06:00; Stop 09/09/16 at 06:01; Status DC Sevelamer Carbonate (Renvela) 2,400 mg TIDWMEALS PO Last administered on 12:20; Start 09/08/16 at 12:00 Insulin Aspart (Novolog) 8 units TIDAC SQ Last administered on 09/10/16 08:41 ; Start 09/08/16 at 12:00; Stop 09/10/16 at 10:17; Status DC Lorazepam (Ativan) 0.5 mg PRN Q6HRS PRN PO ANXIETY / AGITATION Last administered on 09/11/16 11:45; Start 09/08/16 at 13:00 Fentanyl Citrate (Fentanyl 2ml Vial) 25 mcg PRN Q5MIN PRN IV MILD PAIN; Start 09/09/16 at 07:00; Stop 09/10/16 at 06:59; Status DC Fentanyl Citrate (Fentanyl 2ml Vial) 50 mcg PRN Q5MIN PRN IV MODERATE PAIN; Start 09/09/16 at 07:00; Stop 09/10/16 at 06:59; Status DC Morphine Sulfate 1 mg PRN Q10MIN PRN IV SEVERE PAIN; Start 09/09/16 at 07:00; Stop 09/10/16 at 06:59; Status DC Lidocaine HCl 2 ml PRN 1X PRN ID PRIOR TO IV START; Start 09/09/16 at 07:00; Stop 09/10/16 at 06:59; Status DC Hydromorphone HCl (Dilaudid) 0.5 mg PRN Q10MIN PRN IV SEV PAIN, Second choice; Start 09/09/16 at 07:00; Stop 09/10/16 at 06:59; Status DC Prochlorperazine Edisylate 5 mg 5 mg PACU PRN PRN IV NAUSEA, MRX1; Start at 07:00; Stop 09/10/16 at 06:59; Status DC Sodium Chloride (Iv Sodium Chloride 0.9% 1000ml Bag) 1,000 ml @ 0 mls/hr Q0M IV ; Start 09/09/16 at 12:00; Stop 09/10/16 at 10:51; Status DC Morphine Sulfate 4 mg PRN Q2HR PRN IV SEVERE PAIN Last administered on 10:43; Start 09/09/16 at 01:00 Lidocaine HCl 30 ml STK-MED ONCE .ROUTE ; Start 09/09/16 at 07:12; Stop at 07:13; Status DC Cellulose 1 each STK-MED ONCE .ROUTE ; Start 09/09/16 at 07:12; Stop 09/09/16 at 07:13; Status DC Papaverine HCl 60 mg 60 mg STK-MED ONCE .ROUTE ; Start 09/09/16 at 07:13; Stop 09/09/16 at 07:14; Status DC Sodium Chloride 1,000 ml @ 1,000 mls/hr Q1H PRN IV hypotension; Start 09/09/16 at 07:30; Stop 09/09/16 at 13:29; Status DC Albumin Human (Albuminar) 200 ml @ 200 mls/hr 1X PRN PRN IV Hypotension Last administered on 09/09/16t 09:37; Start 09/09/16 at 07:30; Stop 09/09/16 at 13:29 ; Status DC Acetaminophen (Tylenol) 500 mg 1X PRN PRN PO MILD PAIN / TEMP; Start 09/09/16 at 07:30; Stop 09/10/16 at 07:29; Status DC Diphenhydramine HCl (Benadryl) 25 mg 1X PRN PRN IV ITCHING; Start 09/09/16 at 07:30; Stop 09/10/16 at 07:29; Status DC Diphenhydramine HCl (Benadryl) 25 mg 1X PRN PRN IV ITCHING; Start 09/09/16 at 07:30; Stop 09/10/16 at 07:29; Status DC Labetalol HCl (Normodyne) 10 mg PRN Q1HR PRN IVP SBP > 180; Start 09/09/16 at 07:30; Stop 09/10/16 at 07:29; Status DC Clonidine HCl 0.1 mg 0.1 mg 1X PRN PRN PO SBP > 180; Start 09/09/16 at 07:30; Stop 09/10/16 at 07:29; Status DC Sodium Chloride (Iv Sodium Chloride 0.9% 1000ml Bag) 1,000 ml @ 400 mls/hr Q2H30M PRN IV PATENCY; Start 09/09/16 at 07:30; Stop 09/09/16 at 19:29; Status DC Info 1 each 1 each PRN DAILY PRN MC SEE COMMENTS; Start 09/09/16 at 07:30 Heparin Sodium (Porcine) 5000 unit/Sodium Chloride 505 ml @ 505 mls/hr 1X PERIOP ONCE IRR ; Start 09/09/16 at 09:00; Stop 09/09/16 at 09:59; Status DC Cefazolin Sodium 1 gm/Sodium Chloride 500 ml @ 500 mls/hr 1X PERIOP ONCE IRR ; Start 09/09/16 at 09:00; Stop 09/09/16 at 09:59; Status DC Cefazolin Sodium (Ancef 1gm Ivpb For Omni) 0 ml @ As Directed STK-MED ONCE IV ; Start 09/09/16 at 13:23; Stop 09/09/16 at 13:24; Status DC Acetaminophen/ Hydrocodone Bitart (Lortab 5/325) 1 tab PRN Q4HRS PRN PO PAIN; Start 09/09/16 at 14:15; Stop 09/11/16 at 11:52; Status DC Acetaminophen/ Hydrocodone Bitart (Lortab 5/325) 2 tab PRN Q4HRS PRN PO PAIN Last administered on 09/11/16t 04:49; Start 09/09/16 at 14:15; Stop 09/11/16 at 11:52; Status DC Midazolam HCl (Versed) 2 mg STK-MED ONCE .ROUTE ; Start 09/09/16 at 14:06; Stop 09/09/16 at 14:07; Status DC Fentanyl Citrate 100 mcg 100 mcg STK-MED ONCE .ROUTE ; Start 09/09/16 at 14:06; Stop 09/09/16 at 14:07; Status DC Vancomycin HCl/ Sodium Chloride (Iv Sodium Chloride 0.9% 100ml) 100 ml @ 100 mls/hr QMWF IV Last administered on 09/09/16t 17:36; Start 09/09/16 at 16:00 Lidocaine HCl 20 ml STK-MED ONCE .ROUTE ; Start 09/09/16 at 14:11; Stop at 14:12; Status DC Lidocaine HCl 20 ml STK-MED ONCE .ROUTE ; Start 09/09/16 at 14:11; Stop at 14:12; Status DC Cellulose 1 each STK-MED ONCE .ROUTE ; Start 09/09/16 at 14:12; Stop 09/09/16 at 14:13; Status DC Papaverine HCl 60 mg 60 mg STK-MED ONCE .ROUTE ; Start 09/09/16 at 14:12; Stop 09/09/16 at 14:13; Status DC Propofol (Diprivan) 20 ml @ As Directed STK-MED ONCE IV ; Start 09/09/16 at 14: 51; Stop 09/09/16 at 14:52; Status DC Amoxicillin/ Clavulanate Potassium (Augmentin 500/ 125mg) 1 tab DAILY PO Last administered on 09/10/16 10:43; Start 09/10/16 at 10:00; Stop 09/11/16 at 10:47 ; Status DC Insulin Aspart (Novolog) 5 units TIDAC SQ ; Start 09/10/16 at 11:30 Insulin Detemir (Levemir) 10 units QHS SQ Last administered on 09/10/16 21:46 ; Start 09/10/16 at 21:00; Stop 09/11/16 at 10:42; Status DC Sodium Thiosulfate 25 gm 25 gm 3X/WEEK IV ; Start 09/11/16 at 09:00; Status UNV Magnesium Sulfate/ Dextrose 50 ml @ 25 mls/hr PRN DAILY PRN IV for Mag < 1.7 on am labs; Start 09/10/16 at 10:45 Sodium Thiosulfate 25 gm/ Sodium Chloride 100 ml @ 100 mls/hr 3X/WEEK@16 IV ; Start 09/11/16 at 16:00 Amino Acids/ Glycerin/ Electrolytes (Procalamine) 1,000 ml @ 80 mls/hr [id number] IV Last administered on 09/11/16 11:46; Start 09/10/16 at 11:30 Fentanyl Citrate (Fentanyl 2ml Vial) 25 mcg PRN Q2HR PRN IV PAIN; Start at 13:00 Albuterol Sulfate (Ventolin Neb Soln) 2.5 mg PRN Q4HRS PRN NEB SHORTNESS OF BREATH; Start 09/10/16 at 13:30 Tramadol HCl (Ultram) 50 mg PRN Q6HRS PRN PO PAIN Last administered on 08:39; Start 09/10/16 at 13:45 Ondansetron HCl (Zofran) 4 mg PRN Q6HRS PRN IV NAUSEA/VOMITING Last administered on 09/11/16 08:39; Start 09/10/16 at 19:15 Calcium Carbonate/ Glycine (Tums) 500 mg TID PRN PO INDIGESTION; Start at 19:15 Pantoprazole Sodium (Protonix) 40 mg DAILYAC PO Last administered on 09/11/16 08:38; Start 09/10/16 at 20:00 Prochlorperazine Edisylate (Compazine) 10 mg PRN Q6HRS PRN IV NAUSEA/VOMITING Last administered on 09/11/16 10:49; Start 09/11/16 at 10:30 Insulin Detemir (Levemir) 15 units QHS SQ ; Start 09/11/16 at 21:00 Metoclopramide HCl 5 mg 5 mg PRN Q6HRS PRN IV NAUSEA/VOMITING; Start 09/11/16 at 10:45 Piperacillin Sod/ Tazobactam Sod/ Sodium Chloride (Zosyn/Iv Sodium Chloride 0.9 % 50ml) 50 ml @ 100 mls/hr Q8HRS IV ; Start 09/11/16 at 14:00 Oxycodone/ Acetaminophen (Percocet 5/325) 1 tab PRN Q4HRS PRN PO PAIN; Start at 12:00 Active Scripts Active Mupirocin Ointment (Mupirocin) 22 Gm Oint...g. 1 Katie TP TID Vitamin A & D Ointment (Vits A & D/White Pet/Lanolin) 56.7 Gm Oint...g. 1 Katie TP TID Diflucan (Fluconazole) 100 Mg Tablet 100 Mg PO DAILY Allopurinol 100 Mg Tablet 100 Mg PO DAILY Hydrocodone-Apap 5-325 (Hydrocodone Bit/Acetaminophen) 1 Each Tablet 1 Tab PO Q6HRS PRN Eliquis (Apixaban) 2.5 Mg Tablet 2.5 Mg PO DAILY Renvela (Sevelamer Carbonate) 2.4 Gm Powd.pack 2.4 Gm PO TIDWMEALS Miralax (Polyethylene Glycol 3350) 17 Gm Powd.pack 17 Gm PO PRN DAILY PRN Carvedilol 3.125 Mg Tablet 3.125 Mg PO BIDWMEALS Reported Sensipar (Cinacalcet Hcl) 30 Mg Tablet 1 Tab PO DAILY Glimepiride 2 Mg Tablet 4 Mg PO DAILY Novolog (Insulin Aspart) 100 Unit/1 Ml Cartridge 8 Unit SQ TIDAC Atorvastatin Calcium 40 Mg Tablet 1 Tab PO DAILY Vitals/I & O Vital Sign - Last 24 Hours 09/10/16 09/10/16 09/10/16 09/10/16 14:56 16:15 18:25 19:00 Temp 97.4 98.4 97.4 98.4 Pulse 90 85 94 Resp 20 18 B/P 129/65 129/64 114/52 Pulse Ox 96 96 90 O2 Delivery Room Air Room Air Room Air 09/10/16 09/10/16 09/11/16 09/11/16 20:00 23:00 03:00 04:49 Temp 98.3 97.6 98.3 97.6 Pulse 87 100 Resp 18 18 20 B/P 143/77 139/74 Pulse Ox 93 95 95 O2 Delivery Room Air Room Air Room Air Room Air 09/11/16 09/11/16 09/11/16 09/11/16 05:49 07:00 07:45 08:39 Temp 98.4 98.4 Pulse 105 Resp 20 20 B/P 134/76 Pulse Ox 95 91 O2 Delivery Room Air Room Air Room Air Room Air 09/11/16 09/11/16 09:40 11:00 Temp 97.4 97.4 Pulse 97 Resp 20 B/P 135/73 Pulse Ox 90 O2 Delivery Room Air Room Air Intake and Output 09/10/16 09/10/16 09/11/16 15:00 23:00 07:00 Intake Total 300 ml Output Total 175 ml Balance 125 ml YARED MOSELEY MD Sep 11, 2016 14:15
--- NOTE | 2016-09-11 14:21 | PDOC ---
Subjective: Subjective: D/w family - has been in pain, now somewhat comfortable sleeping in chair, doesn 't want HD - unsure about PD. Interested in CA19-9 results and further imaging to help guide goals of care. Objective: Objective: Reviewed other notes. Vital Signs: Vital Signs Date Time Temp Pulse Resp B/P Pulse Ox O2 Delivery O2 Flow Rate FiO2 09/11/16 11:00 97.4 97 20 135/73 90 Room Air 97.4 Labs: Laboratory Tests Test 09/10/16 16:29 09/10/16 20:34 09/11/16 04:20 09/11/16 07:53 Glucose (Fingerstick) 154mg/dL 214mg/dL 280mg/dL Hemoglobin 8.2g/dL Sodium Level 140mmol/L Potassium Level 4.0mmol/L Chloride Level 97mmol/L Carbon Dioxide Level 30mmol/L Anion Gap 13 Blood Urea Nitrogen 40mg/dL Creatinine 4.7mg/dL Estimated GFR (Cockcroft-Gault) 11.8 Glucose Level 223mg/dL Calcium Level 8.5mg/dL Phosphorus Level 4.6mg/dL Magnesium Level 1.7mg/dL Albumin 2.3g/dL Test 09/11/16 07:59 09/11/16 11:46 Glucose (Fingerstick) 268mg/dL 287mg/dL PE: GEN: NAD NEURO/PSYCH: asleep in chair A/P: Pancreatic lesions -punctate calcifications within the pancreas (?sequela of chronic pancreatitis) , 2cm and 1.9cm isodense - hypodense lesions within the pancreas, difficult to characterize on noncontrast CT -denies h/o pancreatic issues, family notes decreased appetite this admission -CA19-9 pending Scrotal wound/cellulitis, RLE wound/calciphylaxis, 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 Llanes. ENRIQUE HELM Sep 11, 2016 14:21
--- NOTE | 2016-09-11 15:01 | RAD ---
Indication distended abdomen. Portable supine films of the abdomen were obtained. The abdominal gas pattern is nonobstructive. Vascular calcification is noted. A catheter is noted overlying the abdomen perhaps representing a dialysis catheter. There are degenerative changes in the lumbar spine. A left hip prosthesis is noted. IMPRESSION: Nonobstructive abdominal gas pattern.
[2016-09-11] MEDS: fentaNYL PF VIAL 100 MCG/2 ML VIAL IV PRN ×2 (15:18→22:00)
--- NOTE | 2016-09-11 15:22 | PDOC ---
SUBJECTIVE ROS ESRD Pt refused HD today Currenlty confused and agitated OBJECTIVE Vital Signs Vital Signs Date Time Temp Pulse Resp B/P Pulse Ox O2 Delivery O2 Flow Rate FiO2 09/11/16 11:00 97.4 97 20 135/73 90 Room Air 97.4 I & 0 Intake and Output 09/11/16 07:00 Intake Total 300 ml Output Total 175 ml Balance 125 ml Intake Oral 300 ml Output Urine Total 175 ml # Voids 1 PHYSICAL EXAM Physical Exam General Appearance: Awake but drowsy; confused and gitated In min Distress (Scrotal pain) Eyes: Sclera Anicteric Conjunctiva Normal EN: No EN Drainage Mucous Memb. dryish Neck: no JVD no JVP Supple no Thyromegaly CVS: S1 S2 ? Murmur No Gallop No Rub no Edema Resp: no Rales no Rhonchi no Acc. Muscle use GI: BS +ve NO Bruit Non Tender Non Distended : no CVA tenderness; no Suprapubic Tenderness Erythema/ tenderness under Penis SKIN: ? Calciphylaxis Rashes Breast Exam deferred Mu.Sk: Adequate ROM min Muscle Atrophy Heme: Unable to palpate Obvious LAD no palp Splenomegaly NEURO: Moves all 4 ext currently but remains encephalopathic and agitated Psych: Unable to assess while confused Assessment & Plan ESRD: Pt refused HD today. Current FLuid and E-lyte status does not necessitate emergent need for Dialysis. Will re-evaluate for Dialysis in am Encephalpahty - doubt Uremic per se - will R/o Peritonitis - suspect asso with undelrying infections Anemia: Epogen as ordered Transfuse with next HD as needed if hgb < 7.0 HTN: Current BP meds reviewed. See orders for changes. Bone & Mineral: ct Sensipar and Binders; follow phos and alter binder regimen as needed. 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 Scrotal Cellulitis - Abx per ID SEv Hypoalbuminemia - ? 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 Discussed Plan of Care and prognosis etc. 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 COMMENT/RELEVANT DATA Meds Current Medications Medications (Trade) Dose Ordered Sig/Dikr Start Time Stop Time Status Last Admin Dose Admin Acetaminophen (Tylenol) 500 mg 1X PRN PRN 09/09/16 07:30 09/10/16 07:29 DC Acetaminophen/ Hydrocodone Bitart (Lortab 5/325) 2 tab PRN Q4HRS PRN 09/09/16 14:15 09/11/16 11:52 DC 09/11/16 04:49 2 TAB Albumin Human (Albuminar) 200 ml @ 200 mls/hr 1X PRN PRN 09/09/16 07:30 09/09/16 13:29 DC 09/09/16 09:37 200 MLS/HR Albuterol Sulfate (Ventolin Neb Soln) 2.5 mg PRN Q4HRS PRN 09/10/16 13:30 Allopurinol (Zyloprim) 100 mg DAILY 09/08/16 09:00 09/11/16 12:20 100 MG Amino Acids/ Glycerin/ Electrolytes (Procalamine) 1,000 ml @ 80 mls/hr [id number] 09/10/16 11:30 09/11/16 11:46 80 MLS/HR Amoxicillin/ Clavulanate Potassium (Augmentin 500/ 125mg) 1 tab DAILY 09/10/16 10:00 09/11/16 10:47 DC 09/10/16 10:43 1 TAB Apixaban (Eliquis) 2.5 mg BID 09/08/16 21:00 09/11/16 12:20 2.5 MG Atorvastatin Calcium (Lipitor) 40 mg QHS 09/08/16 21:00 09/10/16 21:25 40 MG Calcium Carbonate/ Glycine (Tums) 500 mg TID PRN 09/10/16 19:15 Carvedilol (Coreg) 3.125 mg BIDWMEALS 09/08/16 08:00 09/10/16 18:25 3.125 MG Cefazolin Sodium (Ancef 1gm Ivpb For Omni) 0 ml @ As Directed STK-MED ONCE 09/09/16 13:23 09/09/16 13:24 DC Cefazolin Sodium 1 gm/Sodium Chloride 500 ml @ 500 mls/hr 1X PERIOP ONCE 09/09/16 09:00 09/09/16 09:59 DC Cellulose 1 each STK-MED ONCE 09/09/16 14:12 09/09/16 14:13 DC Cellulose 1 each 1 each STK-MED ONCE 09/09/16 07:12 09/09/16 07:13 DC Cinacalcet (Sensipar) 30 mg DAILY 09/08/16 09:00 09/11/16 12:20 30 MG Clonidine HCl 0.1 mg 0.1 mg 1X PRN PRN 09/09/16 07:30 09/10/16 07:29 DC Darbepoetin Lasha (Aranesp) 60 mcg WEEKLYHS 09/08/16 21:00 09/08/16 21:06 60 MCG Dextrose (Dextrose 50%-Water Syringe) 12.5 gm PRN Q15MIN PRN 09/07/16 22:30 09/08/16 21:03 25 GM Diphenhydramine HCl (Benadryl) 25 mg 1X PRN PRN 09/09/16 07:30 09/10/16 07:29 DC Docusate Sodium (Colace) 100 mg DAILY 09/08/16 09:00 09/10/16 08:33 100 MG Fentanyl Citrate (Fentanyl 2ml Vial) 25 mcg PRN Q2HR PRN 09/10/16 13:00 Fentanyl Citrate 100 mcg 100 mcg STK-MED ONCE 09/09/16 14:06 09/09/16 14:07 DC Fluconazole (Diflucan) 100 mg DAILY 09/08/16 09:00 09/11/16 12:20 100 MG Glimepiride (Amaryl) 4 mg DAILY 09/08/16 09:00 09/09/16 13:46 DC 09/08/16 07:59 4 MG Heparin Sodium (Porcine) 5000 unit/Sodium Chloride 505 ml @ 505 mls/hr 1X PERIOP ONCE 09/09/16 09:00 09/09/16 09:59 DC Hydromorphone HCl (Dilaudid) 0.5 mg PRN Q10MIN PRN 09/09/16 07:00 09/10/16 06:59 DC Hydromorphone HCl 1 mg 1 mg 1X ONCE 09/07/16 21:00 09/07/16 21:01 DC 09/07/16 20:59 1 MG Info (Anti-Coagulation Monitoring By Pharmacy) 1 each PRN DAILY PRN 09/07/16 23:45 09/08/16 02:30 1 EACH Info 1 each 1 each PRN DAILY PRN 09/09/16 07:30 Insulin Aspart (Novolog) 5 units TIDAC 09/10/16 11:30 Insulin Detemir (Levemir) 15 units QHS 09/11/16 21:00 Labetalol HCl (Normodyne) 10 mg PRN Q1HR PRN 09/09/16 07:30 09/10/16 07:29 DC Lidocaine HCl 20 ml STK-MED ONCE 09/09/16 14:11 09/09/16 14:12 DC Lorazepam (Ativan) 0.5 mg PRN Q6HRS PRN 09/08/16 13:00 09/11/16 11:45 0.5 MG Magnesium Sulfate/ Dextrose 50 ml @ 25 mls/hr PRN DAILY PRN 09/10/16 10:45 Meropenem 1 gm/ Sodium Chloride 100 ml @ 200 mls/hr Q8HRS 09/07/16 22:00 UNV Meropenem/Sodium Chloride (Merrem/Iv Sodium Chloride 0.9% 50ml) 50 ml @ 100 mls/hr QHS 09/07/16 21:00 09/08/16 07:59 DC 09/07/16 21:05 100 MLS/HR Metoclopramide HCl 5 mg 5 mg PRN Q6HRS PRN 09/11/16 10:45 Midazolam HCl (Versed) 2 mg STK-MED ONCE 09/09/16 14:06 09/09/16 14:07 DC Morphine Sulfate 4 mg PRN Q2HR PRN 09/09/16 01:00 09/10/16 10:43 4 MG Ondansetron HCl (Zofran) 4 mg PRN Q6HRS PRN 09/10/16 19:15 09/11/16 08:39 4 MG Oxycodone/ Acetaminophen (Percocet 5/325) 1 tab PRN Q4HRS PRN 09/11/16 12:00 Pantoprazole Sodium (Protonix) 40 mg DAILYAC 09/10/16 20:00 09/11/16 08:38 40 MG Papaverine HCl 60 mg 60 mg STK-MED ONCE 09/09/16 14:12 09/09/16 14:13 DC Piperacillin Sod/ Tazobactam Sod/ Sodium Chloride (Zosyn/Iv Sodium Chloride 0.9% 50ml) 50 ml @ 100 mls/hr Q8HRS 09/11/16 14:00 Polyethylene Glycol (miraLAX PACKET) 17 gm PRN DAILY PRN 09/07/16 22:30 Potassium Chloride (Klor-Con) 20 meq 1X ONCE 09/07/16 23:00 09/07/16 23:01 DC 09/08/16 01:38 20 MEQ Prochlorperazine Edisylate (Compazine) 10 mg PRN Q6HRS PRN 09/11/16 10:30 09/11/16 10:49 10 MG Propofol (Diprivan) 20 ml @ As Directed STK-MED ONCE 09/09/16 14:51 09/09/16 14:52 DC Sevelamer Carbonate (Renvela) 2,400 mg TIDWMEALS 09/08/16 12:00 09/11/16 12:20 2,400 MG Sodium Thiosulfate 25 gm 25 gm 3X/WEEK 09/11/16 09:00 UNV Sodium Thiosulfate 25 gm/ Sodium Chloride 100 ml @ 100 mls/hr 3X/WEEK@16 09/11/16 16:00 Sodium Chloride (Iv Sodium Chloride 0.9% 500ml Bag) 500 ml @ 500 mls/hr 1X ONCE 09/07/16 21:00 09/07/16 21:59 DC 09/07/16 21:04 500 MLS/HR Sodium Chloride (Iv Sodium Chloride 0.9% 1000ml Bag) 1,000 ml @ 400 mls/hr Q2H30M PRN 09/09/16 07:30 09/09/16 19:29 DC Tramadol HCl (Ultram) 50 mg PRN Q6HRS PRN 09/10/16 13:45 09/11/16 08:39 50 MG Vancomycin HCl 1 each 1X ONCE 09/09/16 06:00 09/09/16 06:01 DC 09/09/16 06:00 1 EACH Vancomycin HCl 1 each 1 each 1X ONCE 09/11/16 21:30 09/11/16 21:30 DC Vancomycin HCl/ Sodium Chloride (Iv Sodium Chloride 0.9% 100ml) 100 ml @ 100 mls/hr QMWF 09/09/16 16:00 09/09/16 17:36 100 MLS/HR Vancomycin HCl/ Sodium Chloride (Iv Sodium Chloride 0.9% 500ml Bag) 500 ml @ 250 mls/hr Q48H 09/09/16 22:00 09/09/16 22:00 DC Vitamin A/Vitamin D (Vitamin A & D Ointment) 1 marie TID 09/08/16 09:00 09/11/16 08:39 1 MARIE Lab Laboratory Tests Test 09/10/16 16:29 09/10/16 20:34 09/11/16 04:20 09/11/16 07:53 Glucose (Fingerstick) 154mg/dL (70-99) 214mg/dL (70-99) 280mg/dL (70-99) Hemoglobin 8.2g/dL (13.0-17.5) Sodium Level 140mmol/L (136-145) Potassium Level 4.0mmol/L (3.5-5.1) Chloride Level 97mmol/L (98-107) Carbon Dioxide Level 30mmol/L (21-32) Anion Gap 13 (6-14) Blood Urea Nitrogen 40mg/dL (8-26) Creatinine 4.7mg/dL (0.7-1.3) Estimated GFR (Cockcroft-Gault) 11.8 Glucose Level 223mg/dL (70-99) Calcium Level 8.5mg/dL (8.5-10.1) Phosphorus Level 4.6mg/dL (2.6-4.7) Magnesium Level 1.7mg/dL (1.8-2.4) Albumin 2.3g/dL (3.4-5.0) Test 09/11/16 07:59 09/11/16 11:46 Glucose (Fingerstick) 268mg/dL (70-99) 287mg/dL (70-99) FILIPPO RODRIGUES MD Sep 11, 2016 15:22
[2016-09-11] MEDS: PIPERACILLIN/TAZOBACTAM 2.25 GM in IV NORMAL SALINE 50ML 50 ML IV SCH ×2 (15:23→21:30)
[2016-09-11] MEDS: NORMAL SALINE IV SCH (16:00)
[2016-09-11] MEDS: SODIUM THIOSULFATE IV SCH (16:00)
[2016-09-11] MEDS: ATORVASTATIN CALCIUM 40 MG TABLET. PO SCH (20:55)
[2016-09-11] MEDS: oxyCODONE/APAP 5/325 1 TAB TABLET PO PRN (20:56)
[2016-09-11] MEDS: INSULIN DETEMIR 300 UNITS/3 ML INSULN.PEN. SQ SCH (21:13)
[2016-09-11 22:29] LABS: BF COLOR STRAW
[2016-09-11 22:30] LABS: BF CLARITY CLEAR
[2016-09-11] MEDS: HALOPERIDOL LACTATE 5 MG/ML VIAL. IVP PRN (23:12)
[2016-09-12] MEDS: oxyCODONE/APAP 5/325 1 TAB TABLET PO PRN ×3 (00:49→20:24)
[2016-09-12] MEDS: fentaNYL PF VIAL 100 MCG/2 ML VIAL IV PRN ×3 (00:49→12:21)
[2016-09-12] MEDS: AMINO AC 3%/ELECTROLYTE/GLYCER 1,000 ML IV SCH ×3 (00:50→20:23)
[2016-09-12 03:00] VITALS: BP 131/73
[2016-09-12] MEDS: PIPERACILLIN/TAZOBACTAM 2.25 GM in IV NORMAL SALINE 50ML 50 ML IV SCH ×3 (06:32→20:24)
[2016-09-12 06:33] LABS: ALBUMIN 2.1 g/dL (3.4-5.0); CALCIUM 8.3 mg/dL (8.5-10.1); CREATININE 5.5 mg/dL (0.7-1.3); GFR 9.9; PHOSPHORUS 4.5 mg/dL (2.6-4.7); POTASSIUM 4.2 mmol/L (3.5-5.1)
[2016-09-12 07:00] VITALS: BP 169/76
[2016-09-12] MEDS: INSULIN ASPART 300 UNITS/3 ML INSULN.PEN SQ SCH ×7 (07:30→20:52)
[2016-09-12] MEDS: PANTOPRAZOLE 40 MG TABLET.DR. PO SCH (07:30)
[2016-09-12] MEDS: HALOPERIDOL LACTATE 5 MG/ML VIAL. IVP PRN (07:56)
[2016-09-12] MEDS: CARVEDILOL 3.125 MG TABLET. PO SCH ×2 (08:00→16:45)
[2016-09-12] MEDS: SEVELAMER CARBONATE 800 MG TABLET. PO SCH ×3 (08:00→16:45)
[2016-09-12] MEDS ORDERED: IV NORMAL SALINE 1000ML BAG 1,000 ML IV PRN ×2 (08:00)
[2016-09-12] MEDS ORDERED: diphenhydrAMINE 50 MG/ML VIAL IV PRN (08:45)
[2016-09-12] MEDS ORDERED: DIALYSIS PATIENT. MC PRN (08:45)
[2016-09-12] MEDS: VITS A & D/LANOLIN TOPICAL OINTMENT 56GM TUBE. TP SCH ×3 (09:00→20:28)
--- NOTE | 2016-09-12 11:57 | PDOC ---
Renal-Progress Notes Subjective Notes Notes CONFUSED AND SLEEPY History of Present Illness Hx of present illness STABLE Vitals Vitals Vital Signs Date Time Temp Pulse Resp B/P Pulse Ox O2 Delivery O2 Flow Rate FiO2 09/12/16 08:57 Nasal Cannula 2.0 09/12/16 07:00 97.4 87 20 169/76 93 97.4 Weight Weight [ ] I.O. Intake and Output Intake and Output 09/12/16 06:59 Intake Total 0 ml Output Total 0 ml Balance 0 ml Intake Oral 0 ml Output Urine Total 0 ml Labs Labs Laboratory Tests Test 09/11/16 16:50 09/11/16 20:48 09/11/16 21:00 09/12/16 05:50 Glucose (Fingerstick) 260mg/dL (70-99) 268mg/dL (70-99) Body Fluid Source Perit dialysate Body Fluid Color Straw Body Fluid Clarity Clear Body Fluid Nucleated Cells 133/cmm Body Fluid Mononuclear WBCs (%) 78% Body Fluid Polymorphonuclear Cells 19% Body Fluid Total RBCs Counted 154/cmm Body Fluid Other Cells (%) 3% Sodium Level 134mmol/L (136-145) Potassium Level 4.2mmol/L (3.5-5.1) Chloride Level 96mmol/L (98-107) Carbon Dioxide Level 25mmol/L (21-32) Anion Gap 13 (6-14) Blood Urea Nitrogen 59mg/dL (8-26) Creatinine 5.5mg/dL (0.7-1.3) Estimated GFR (Cockcroft-Gault) 9.9 Glucose Level 275mg/dL (70-99) Calcium Level 8.3mg/dL (8.5-10.1) Phosphorus Level 4.5mg/dL (2.6-4.7) Magnesium Level 2.2mg/dL (1.8-2.4) Albumin 2.1g/dL (3.4-5.0) Test 09/12/16 09:40 Glucose (Fingerstick) 161mg/dL (70-99) Micro Micro Microbiology 09/07/16 Blood Culture - Preliminary, Resulted NO GROWTH AFTER 4 DAYS Review of Systems Constitutional: yes: no symptom reported Physical Exam General Appearance: no apparent distress Skin: warm Respiratory: bilateral CTA Heart: S1S2, RRR Abdomen: soft, bowel sounds present Genitourinary: bladder flat Extremities: pulses present Neurology: confused Assessment Assessment IMP ESRD-REFUSED HD YESTERDAY ANEMIA SCROTAL CELLULITIS MET ENCEPHALOPATHY DEMENTIA PLAN ON PPN HD TODAY UF TO DW CONT WITH ANTIBIOTICS WILL FOLLOW FLAKO CALLES MD Sep 12, 2016 11:56
[2016-09-12 12:05] VITALS: BP 129/61
[2016-09-12] MEDS ORDERED: VANCOMYCIN 500 MG in IV NORMAL SALINE 100ML 100 ML IV ONE (13:00)
[2016-09-12] MEDS: DOCUSATE SODIUM 100 MG CAPSULE. PO SCH (13:10)
[2016-09-12] MEDS: ALLOPURINOL 100 MG TABLET. PO SCH (13:11)
[2016-09-12] MEDS: CINACALCET HCL 30 MG TABLET PO SCH (13:11)
[2016-09-12] MEDS: FLUCONAZOLE 100 MG TABLET. PO SCH (13:11)
[2016-09-12] MEDS: APIXABAN 2.5 MG TABLET. PO SCH ×2 (13:11→20:24)
--- NOTE | 2016-09-12 13:30 | PDOC ---
PROGRESS NOTES Chief Complaint Chief Complaint scrotal cellulitis open wound ESRD on PD, now on HD dementia, mild DM2, mod control CAd S/P CABG in 2004 hypokalemia, anemia of CKD OBEsity [address] stable left addrenal gland lesion 3.8cm on CT left arm AVF 3weeks, with steal syndrome, better with AVF ligation 09/09 PAFIB on eliquis calciphylaxis plan; fu with uro, id, renal, vascular, GI check ca199 PENDING cont HD , [id number] with HD AVF ligation as per vascular 09/09 on zosyn and vanco, diflucan, cont wound care on eliquis ptot, ativan prn SW for rehab next week check CXR stable, albuterol prn Families at bedside, very anxious about the pancreatic lesions. i explained for 10min, that CA199 is pending, and defer to GI if need more image. Pt seems not want HD, add more meds for nausea, checked KUB ok, defer to renal if want cont PD. Cr not decreasing much with HD. PAT consult on Wednesday History of Present Illness History of Present Illness wound care, local treatment still scrotum wound with pus exudate, pain left hand cold with mild weakness, warmer post sx on 09/09 has PD now on HD very nauseated, low po intake, doesnot want HD which makes him uncomfortable on 09/11, agreed on 09/12 delerium with uremia Vitals Vitals Vital Signs Date Time Temp Pulse Resp B/P Pulse Ox O2 Delivery O2 Flow Rate FiO2 09/12/16 12:21 Room Air 09/12/16 12:05 97.4 104 20 129/61 98 97.4 09/12/16 08:57 2.0 Physical Exam Physical Exam bl wrist ulnar pulse hard to feel, but left hand is cooler, AVF has bruits General: Alert, Cooperative, No acute distress Heart: No murmurs Lungs: Clear Abdomen: Normal bowel sounds, Soft Extremities: No cyanosis, Other (tr edema) Skin: Other (scrotal swelling, erythema and ulceration under the penis, PUS exudate seen) Labs LABS Laboratory Tests Test 09/11/16 16:50 09/11/16 20:48 09/11/16 21:00 09/12/16 05:50 Glucose (Fingerstick) 260mg/dL (70-99) 268mg/dL (70-99) Body Fluid Source Perit dialysate Body Fluid Color Straw Body Fluid Clarity Clear Body Fluid Nucleated Cells 133/cmm Body Fluid Mononuclear WBCs (%) 78% Body Fluid Polymorphonuclear Cells 19% Body Fluid Total RBCs Counted 154/cmm Body Fluid Other Cells (%) 3% Sodium Level 134mmol/L (136-145) Potassium Level 4.2mmol/L (3.5-5.1) Chloride Level 96mmol/L (98-107) Carbon Dioxide Level 25mmol/L (21-32) Anion Gap 13 (6-14) Blood Urea Nitrogen 59mg/dL (8-26) Creatinine 5.5mg/dL (0.7-1.3) Estimated GFR (Cockcroft-Gault) 9.9 Glucose Level 275mg/dL (70-99) Calcium Level 8.3mg/dL (8.5-10.1) Phosphorus Level 4.5mg/dL (2.6-4.7) Magnesium Level 2.2mg/dL (1.8-2.4) Albumin 2.1g/dL (3.4-5.0) Test 09/12/16 09:40 09/12/16 11:38 09/12/16 12:13 Glucose (Fingerstick) 161mg/dL (70-99) 125mg/dL (70-99) 140mg/dL (70-99) Review of Systems Review of Systems no fever, chills, sob or chest pain Assessment and Plan Assessmemt and Plan Problems Medical Problems: (1) Open wound of scrotum Status: Acute Problems: Comment Review of Relevant I have reviewed the following items robert (where applicable) has been applied. Labs Laboratory Tests Test 09/10/16 16:29 09/10/16 20:34 09/11/16 04:20 09/11/16 07:53 Glucose (Fingerstick) 154mg/dL (70-99) 214mg/dL (70-99) 280mg/dL (70-99) Hemoglobin 8.2g/dL (13.0-17.5) Sodium Level 140mmol/L (136-145) Potassium Level 4.0mmol/L (3.5-5.1) Chloride Level 97mmol/L (98-107) Carbon Dioxide Level 30mmol/L (21-32) Anion Gap 13 (6-14) Blood Urea Nitrogen 40mg/dL (8-26) Creatinine 4.7mg/dL (0.7-1.3) Estimated GFR (Cockcroft-Gault) 11.8 Glucose Level 223mg/dL (70-99) Calcium Level 8.5mg/dL (8.5-10.1) Phosphorus Level 4.6mg/dL (2.6-4.7) Magnesium Level 1.7mg/dL (1.8-2.4) Albumin 2.3g/dL (3.4-5.0) Test 09/11/16 07:59 09/11/16 11:46 09/11/16 16:50 09/11/16 20:48 Glucose (Fingerstick) 268mg/dL (70-99) 287mg/dL (70-99) 260mg/dL (70-99) 268mg/dL (70-99) Test 09/11/16 21:00 09/12/16 05:50 09/12/16 09:40 09/12/16 11:38 Body Fluid Source Perit dialysate Body Fluid Color Straw Body Fluid Clarity Clear Body Fluid Nucleated Cells 133/cmm Body Fluid Mononuclear WBCs (%) 78% Body Fluid Polymorphonuclear Cells 19% Body Fluid Total RBCs Counted 154/cmm Body Fluid Other Cells (%) 3% Sodium Level 134mmol/L (136-145) Potassium Level 4.2mmol/L (3.5-5.1) Chloride Level 96mmol/L (98-107) Carbon Dioxide Level 25mmol/L (21-32) Anion Gap 13 (6-14) Blood Urea Nitrogen 59mg/dL (8-26) Creatinine 5.5mg/dL (0.7-1.3) Estimated GFR (Cockcroft-Gault) 9.9 Glucose Level 275mg/dL (70-99) Calcium Level 8.3mg/dL (8.5-10.1) Phosphorus Level 4.5mg/dL (2.6-4.7) Magnesium Level 2.2mg/dL (1.8-2.4) Albumin 2.1g/dL (3.4-5.0) Glucose (Fingerstick) 161mg/dL (70-99) 125mg/dL (70-99) Test 09/12/16 12:13 Glucose (Fingerstick) 140mg/dL (70-99) Laboratory Tests Test 09/11/16 16:50 09/11/16 20:48 09/11/16 21:00 09/12/16 05:50 Glucose (Fingerstick) 260mg/dL (70-99) 268mg/dL (70-99) Body Fluid Source Perit dialysate Body Fluid Color Straw Body Fluid Clarity Clear Body Fluid Nucleated Cells 133/cmm Body Fluid Mononuclear WBCs (%) 78% Body Fluid Polymorphonuclear Cells 19% Body Fluid Total RBCs Counted 154/cmm Body Fluid Other Cells (%) 3% Sodium Level 134mmol/L (136-145) Potassium Level 4.2mmol/L (3.5-5.1) Chloride Level 96mmol/L (98-107) Carbon Dioxide Level 25mmol/L (21-32) Anion Gap 13 (6-14) Blood Urea Nitrogen 59mg/dL (8-26) Creatinine 5.5mg/dL (0.7-1.3) Estimated GFR (Cockcroft-Gault) 9.9 Glucose Level 275mg/dL (70-99) Calcium Level 8.3mg/dL (8.5-10.1) Phosphorus Level 4.5mg/dL (2.6-4.7) Magnesium Level 2.2mg/dL (1.8-2.4) Albumin 2.1g/dL (3.4-5.0) Test 09/12/16 09:40 09/12/16 11:38 09/12/16 12:13 Glucose (Fingerstick) 161mg/dL (70-99) 125mg/dL (70-99) 140mg/dL (70-99) Microbiology 09/07/16 Blood Culture - Preliminary, Resulted NO GROWTH AFTER 4 DAYS Medications Current Medications Meropenem/Sodium Chloride (Merrem/Iv Sodium Chloride 0.9% 100ml) 100 ml @ 200 mls/hr Q8HRS IV ; Start 09/07/16 at 22:00; Status UNV Vancomycin HCl 1 each 1 each PRN DAILY PRN MC SEE COMMENTS Last administered on 09/11/16t 12:58; Start 09/07/16 at 20:45 Sodium Chloride (Iv Sodium Chloride 0.9% 500ml Bag) 500 ml @ 500 mls/hr 1X ONCE IV Last administered on 09/07/16 21:04; Start 09/07/16 at 21:00; Stop at 21:59; Status DC Hydromorphone HCl 1 mg 1 mg 1X ONCE IV Last administered on 09/07/16 20:59; Start 09/07/16 at 21:00; Stop 09/07/16 at 21:01; Status DC Meropenem 500 mg/ Sodium Chloride 50 ml @ 100 mls/hr QHS IV Last administered on 09/07/16 21:05; Start 09/07/16 at 21:00; Stop 09/08/16 at 07:59; Status DC Vancomycin HCl/ Sodium Chloride (Iv Sodium Chloride 0.9% 500ml Bag) 500 ml @ 250 mls/hr 1X ONCE IV Last administered on 09/07/16 22:07; Start 09/07/16 at 21:30; Stop 09/07/16 at 23:29; Status DC Ondansetron HCl (Zofran) 4 mg PRN Q8HRS PRN IV NAUSEA/VOMITING Last administered on 09/07/16 22:43; Start 09/07/16 at 22:00; Stop 09/08/16 at 21:59 ; Status DC Morphine Sulfate 4 mg 4 mg PRN Q2HR PRN IV SEVERE PAIN Last administered on 21:12; Start 09/07/16 at 22:00; Stop 09/08/16 at 21:59; Status DC Sodium Chloride (Iv Sodium Chloride 0.9% 1000ml Bag) 1,000 ml @ 75 mls/hr [id number] IV Last administered on 09/08/16 12:56; Start 09/07/16 at 21:52; Stop 09/08/16 at 21:51; Status DC Insulin Aspart (Novolog) 0-7 UNITS TIDWMEALS SQ ; Start 09/08/16 at 08:00; Stop 09/08/16 at 08:00; Status DC Dextrose (Dextrose 50%-Water Syringe) 12.5 gm PRN Q15MIN PRN IV SEE COMMENTS Last administered on 09/08/16 21:03; Start 09/07/16 at 22:30 Allopurinol (Zyloprim) 100 mg DAILY PO Last administered on 09/11/16 12:20; Start 09/08/16 at 09:00 Apixaban (Eliquis) 2.5 mg DAILY PO Last administered on 09/08/16 07:59; Start 09/08/16 at 09:00; Stop 09/08/16 at 10:43; Status DC Atorvastatin Calcium (Lipitor) 40 mg QHS PO Last administered on 09/11/16 20: 55; Start 09/08/16 at 21:00 Carvedilol (Coreg) 3.125 mg BIDWMEALS PO Last administered on 09/10/16 18:25; Start 09/08/16 at 08:00 Cinacalcet (Sensipar) 30 mg DAILY PO Last administered on 09/11/16 12:20; Start 09/08/16 at 09:00 Glimepiride (Amaryl) 4 mg DAILY PO Last administered on 09/08/16 07:59; Start 09/08/16 at 09:00; Stop 09/09/16 at 13:46; Status DC Acetaminophen/ Hydrocodone Bitart (Lortab 5/325) 1 tab PRN Q6HRS PRN PO SEVERE PAIN Last administered on 09/09/16 06:16; Start 09/07/16 at 22:30; Stop at 14:14; Status DC Polyethylene Glycol (miraLAX PACKET) 17 gm PRN DAILY PRN PO CONSTIPATION; Start 09/07/16 at 22:30 Sevelamer Carbonate (Renvela) 2.4 gm TIDWMEALS PO Last administered on 07:59; Start 09/08/16 at 08:00; Stop 09/08/16 at 12:01; Status DC Vitamin A/Vitamin D (Vitamin A & D Ointment) 1 katie TID TP Last administered on 09/11/16 21:00; Start 09/08/16 at 09:00 Docusate Sodium (Colace) 100 mg PRN DAILY PRN PO CONSTIPATION; Start 09/07/16 at 22:45 Docusate Sodium (Colace) 100 mg DAILY PO Last administered on 09/10/16 08:33; Start 09/08/16 at 09:00 Potassium Chloride (Klor-Con) 20 meq 1X ONCE PO Last administered on 01:38; Start 09/07/16 at 23:00; Stop 09/07/16 at 23:01; Status DC Insulin Aspart (Novolog) 0-7 UNITS QIDACHS SQ Last administered on 09/11/16 21 :13; Start 09/07/16 at 22:45 Info (Anti-Coagulation Monitoring By Pharmacy) 1 each PRN DAILY PRN MC SEE COMMENTS Last administered on 09/08/16 02:30; Start 09/07/16 at 23:45 Vancomycin HCl 1 each 1 each 1X ONCE MC ; Start 09/11/16 at 21:30; Stop at 21:30; Status DC Vancomycin HCl 1.5 gm/Sodium Chloride 500 ml @ 250 mls/hr Q48H IV ; Start 09/09 at 22:00; Stop 09/09/16 at 22:00; Status DC Piperacillin Sod/ Tazobactam Sod/ Sodium Chloride (Zosyn/Iv Sodium Chloride 0.9 % 50ml) 50 ml @ 100 mls/hr Q8HRS IV Last administered on 09/10/16 06:11; Start 09/08/16 at 08:30; Stop 09/10/16 at 09:00; Status DC Fluconazole (Diflucan) 100 mg DAILY PO Last administered on 09/11/16 12:20; Start 09/08/16 at 09:00 Darbepoetin Lasha (Aranesp) 60 mcg WEEKLYHS SQ Last administered on 09/08/16 21 :06; Start 09/08/16 at 21:00 Apixaban (Eliquis) 2.5 mg BID PO Last administered on 09/11/16 20:55; Start at 21:00 Vancomycin HCl 1 each 1X ONCE MC Last administered on 09/09/16 06:00; Start 09/09/16 at 06:00; Stop 09/09/16 at 06:01; Status DC Sevelamer Carbonate (Renvela) 2,400 mg TIDWMEALS PO Last administered on 12:20; Start 09/08/16 at 12:00 Insulin Aspart (Novolog) 8 units TIDAC SQ Last administered on 09/10/16 08:41 ; Start 09/08/16 at 12:00; Stop 09/10/16 at 10:17; Status DC Lorazepam (Ativan) 0.5 mg PRN Q6HRS PRN PO ANXIETY / AGITATION Last administered on 09/11/16 11:45; Start 09/08/16 at 13:00 Fentanyl Citrate (Fentanyl 2ml Vial) 25 mcg PRN Q5MIN PRN IV MILD PAIN; Start 09/09/16 at 07:00; Stop 09/10/16 at 06:59; Status DC Fentanyl Citrate (Fentanyl 2ml Vial) 50 mcg PRN Q5MIN PRN IV MODERATE PAIN; Start 09/09/16 at 07:00; Stop 09/10/16 at 06:59; Status DC Morphine Sulfate 1 mg PRN Q10MIN PRN IV SEVERE PAIN; Start 09/09/16 at 07:00; Stop 09/10/16 at 06:59; Status DC Lidocaine HCl 2 ml PRN 1X PRN ID PRIOR TO IV START; Start 09/09/16 at 07:00; Stop 09/10/16 at 06:59; Status DC Hydromorphone HCl (Dilaudid) 0.5 mg PRN Q10MIN PRN IV SEV PAIN, Second choice; Start 09/09/16 at 07:00; Stop 09/10/16 at 06:59; Status DC Prochlorperazine Edisylate 5 mg 5 mg PACU PRN PRN IV NAUSEA, MRX1; Start at 07:00; Stop 09/10/16 at 06:59; Status DC Sodium Chloride (Iv Sodium Chloride 0.9% 1000ml Bag) 1,000 ml @ 0 mls/hr Q0M IV ; Start 09/09/16 at 12:00; Stop 09/10/16 at 10:51; Status DC Morphine Sulfate 4 mg PRN Q2HR PRN IV SEVERE PAIN Last administered on 10:43; Start 09/09/16 at 01:00; Stop 09/11/16 at 15:23; Status DC Lidocaine HCl 30 ml STK-MED ONCE .ROUTE ; Start 09/09/16 at 07:12; Stop at 07:13; Status DC Cellulose 1 each STK-MED ONCE .ROUTE ; Start 09/09/16 at 07:12; Stop 09/09/16 at 07:13; Status DC Papaverine HCl 60 mg 60 mg STK-MED ONCE .ROUTE ; Start 09/09/16 at 07:13; Stop 09/09/16 at 07:14; Status DC Sodium Chloride 1,000 ml @ 1,000 mls/hr Q1H PRN IV hypotension; Start 09/09/16 at 07:30; Stop 09/09/16 at 13:29; Status DC Albumin Human (Albuminar) 200 ml @ 200 mls/hr 1X PRN PRN IV Hypotension Last administered on 09/09/16t 09:37; Start 09/09/16 at 07:30; Stop 09/09/16 at 13:29 ; Status DC Acetaminophen (Tylenol) 500 mg 1X PRN PRN PO MILD PAIN / TEMP; Start 09/09/16 at 07:30; Stop 09/10/16 at 07:29; Status DC Diphenhydramine HCl (Benadryl) 25 mg 1X PRN PRN IV ITCHING; Start 09/09/16 at 07:30; Stop 09/10/16 at 07:29; Status DC Diphenhydramine HCl (Benadryl) 25 mg 1X PRN PRN IV ITCHING; Start 09/09/16 at 07:30; Stop 09/10/16 at 07:29; Status DC Labetalol HCl (Normodyne) 10 mg PRN Q1HR PRN IVP SBP > 180; Start 09/09/16 at 07:30; Stop 09/10/16 at 07:29; Status DC Clonidine HCl 0.1 mg 0.1 mg 1X PRN PRN PO SBP > 180; Start 09/09/16 at 07:30; Stop 09/10/16 at 07:29; Status DC Sodium Chloride (Iv Sodium Chloride 0.9% 1000ml Bag) 1,000 ml @ 400 mls/hr Q2H30M PRN IV PATENCY; Start 09/09/16 at 07:30; Stop 09/09/16 at 19:29; Status DC Info 1 each 1 each PRN DAILY PRN MC SEE COMMENTS; Start 09/09/16 at 07:30 Heparin Sodium (Porcine) 5000 unit/Sodium Chloride 505 ml @ 505 mls/hr 1X PERIOP ONCE IRR ; Start 09/09/16 at 09:00; Stop 09/09/16 at 09:59; Status DC Cefazolin Sodium 1 gm/Sodium Chloride 500 ml @ 500 mls/hr 1X PERIOP ONCE IRR ; Start 09/09/16 at 09:00; Stop 09/09/16 at 09:59; Status DC Cefazolin Sodium (Ancef 1gm Ivpb For Omni) 0 ml @ As Directed STK-MED ONCE IV ; Start 09/09/16 at 13:23; Stop 09/09/16 at 13:24; Status DC Acetaminophen/ Hydrocodone Bitart (Lortab 5/325) 1 tab PRN Q4HRS PRN PO PAIN; Start 09/09/16 at 14:15; Stop 09/11/16 at 11:52; Status DC Acetaminophen/ Hydrocodone Bitart (Lortab 5/325) 2 tab PRN Q4HRS PRN PO PAIN Last administered on 09/11/16 04:49; Start 09/09/16 at 14:15; Stop 09/11/16 at 11:52; Status DC Midazolam HCl (Versed) 2 mg STK-MED ONCE .ROUTE ; Start 09/09/16 at 14:06; Stop 09/09/16 at 14:07; Status DC Fentanyl Citrate 100 mcg 100 mcg STK-MED ONCE .ROUTE ; Start 09/09/16 at 14:06; Stop 09/09/16 at 14:07; Status DC Vancomycin HCl/ Sodium Chloride (Iv Sodium Chloride 0.9% 100ml) 100 ml @ 100 mls/hr QMWF IV Last administered on 09/09/16 17:36; Start 09/09/16 at 16:00; Stop 09/11/16 at 15:32; Status DC Lidocaine HCl 20 ml STK-MED ONCE .ROUTE ; Start 09/09/16 at 14:11; Stop at 14:12; Status DC Lidocaine HCl 20 ml STK-MED ONCE .ROUTE ; Start 09/09/16 at 14:11; Stop at 14:12; Status DC Cellulose 1 each STK-MED ONCE .ROUTE ; Start 09/09/16 at 14:12; Stop 09/09/16 at 14:13; Status DC Papaverine HCl 60 mg 60 mg STK-MED ONCE .ROUTE ; Start 09/09/16 at 14:12; Stop 09/09/16 at 14:13; Status DC Propofol (Diprivan) 20 ml @ As Directed STK-MED ONCE IV ; Start 09/09/16 at 14: 51; Stop 09/09/16 at 14:52; Status DC Amoxicillin/ Clavulanate Potassium (Augmentin 500/ 125mg) 1 tab DAILY PO Last administered on 09/10/16 10:43; Start 09/10/16 at 10:00; Stop 09/11/16 at 10:47 ; Status DC Insulin Aspart (Novolog) 5 units TIDAC SQ ; Start 09/10/16 at 11:30 Insulin Detemir (Levemir) 10 units QHS SQ Last administered on 09/10/16 21:46 ; Start 09/10/16 at 21:00; Stop 09/11/16 at 10:42; Status DC Sodium Thiosulfate 25 gm 25 gm 3X/WEEK IV ; Start 09/11/16 at 09:00; Status UNV Magnesium Sulfate/ Dextrose 50 ml @ 25 mls/hr PRN DAILY PRN IV for Mag < 1.7 on am labs; Start 09/10/16 at 10:45 Sodium Thiosulfate 25 gm/ Sodium Chloride 100 ml @ 100 mls/hr 3X/WEEK@16 IV ; Start 09/11/16 at 16:00 Amino Acids/ Glycerin/ Electrolytes (Procalamine) 1,000 ml @ 80 mls/hr [id number] IV Last administered on 09/12/16 00:50; Start 09/10/16 at 11:30 Fentanyl Citrate (Fentanyl 2ml Vial) 25 mcg PRN Q2HR PRN IV PAIN Last administered on 09/12/16 12:21; Start 09/10/16 at 13:00 Albuterol Sulfate (Ventolin Neb Soln) 2.5 mg PRN Q4HRS PRN NEB SHORTNESS OF BREATH Last administered on 09/12/16 08:56; Start 09/10/16 at 13:30 Tramadol HCl (Ultram) 50 mg PRN Q6HRS PRN PO PAIN Last administered on 08:39; Start 09/10/16 at 13:45 Ondansetron HCl (Zofran) 4 mg PRN Q6HRS PRN IV NAUSEA/VOMITING Last administered on 09/11/16 08:39; Start 09/10/16 at 19:15 Calcium Carbonate/ Glycine (Tums) 500 mg TID PRN PO INDIGESTION; Start at 19:15 Pantoprazole Sodium (Protonix) 40 mg DAILYAC PO Last administered on 09/11/16 08:38; Start 09/10/16 at 20:00 Prochlorperazine Edisylate (Compazine) 10 mg PRN Q6HRS PRN IV NAUSEA/VOMITING Last administered on 09/11/16 10:49; Start 09/11/16 at 10:30 Insulin Detemir (Levemir) 15 units QHS SQ Last administered on 09/11/16 21:13 ; Start 09/11/16 at 21:00 Metoclopramide HCl 5 mg 5 mg PRN Q6HRS PRN IV NAUSEA/VOMITING Last administered on 09/11/16 20:55; Start 09/11/16 at 10:45 Piperacillin Sod/ Tazobactam Sod/ Sodium Chloride (Zosyn/Iv Sodium Chloride 0.9 % 50ml) 50 ml @ 100 mls/hr Q8HRS IV Last administered on 09/12/16 06:32; Start 09/11/16 at 14:00 Oxycodone/ Acetaminophen 1 tab 1 tab PRN Q4HRS PRN PO PAIN Last administered on 09/12/16 00:49; Start 09/11/16 at 12:00 Sodium Thiosulfate/ Sodium Chloride (Sodium Thiosulfate/Iv Sodium Chloride 0.9% 100ml) 100 ml @ 100 mls/hr 1X ONCE IV ; Start 09/12/16 at 16:00; Stop at 16:59 Lorazepam (Ativan) 1 mg 1X ONCE IV ; Start 09/11/16 at 18:00; Stop 09/11/16 at 18:01; Status DC Haloperidol Lactate (Haldol) 2 mg PRN Q24HRS PRN IVP AGITATION Last administered on 09/12/16 07:56; Start 09/11/16 at 18:00 Lorazepam 1 mg 1 mg 1X ONCE IV Last administered on 09/12/16 03:14; Start at 01:00; Stop 09/12/16 at 01:01; Status DC Sodium Chloride (Iv Sodium Chloride 0.9% 1000ml Bag) 1,000 ml @ 1,000 mls/hr Q1H PRN IV hypotension; Start 09/12/16 at 08:00; Stop 09/12/16 at 13:59 Diphenhydramine HCl 50 mg 50 mg 1X PRN PRN IV ITCHING Last administered on 09/12t 09:06; Start 09/12/16 at 08:45; Stop 09/13/16 at 08:44 Sodium Chloride (Iv Sodium Chloride 0.9% 1000ml Bag) 1,000 ml @ 400 mls/hr Q2H30M PRN IV PATENCY; Start 09/12/16 at 08:00; Stop 09/12/16 at 19:59 Info (PHARMACY MONITORING -- do not chart) 1 each PRN DAILY PRN MC SEE COMMENTS ; Start 09/12/16 at 08:45; Status UNV Lorazepam 0.5 mg 0.5 mg PRN Q6HRS PRN IV ANXIETY / AGITATION; Start 09/12/16 at 11:00 Vancomycin HCl/ Sodium Chloride (Iv Sodium Chloride 0.9% 100ml) 100 ml @ 100 mls/hr 1X ONCE IV ; Start 09/12/16 at 13:00; Stop 09/12/16 at 13:59 Active Scripts Active Mupirocin Ointment (Mupirocin) 22 Gm Oint...g. 1 Katie TP TID Vitamin A & D Ointment (Vits A & D/White Pet/Lanolin) 56.7 Gm Oint...g. 1 Katie TP TID Diflucan (Fluconazole) 100 Mg Tablet 100 Mg PO DAILY Allopurinol 100 Mg Tablet 100 Mg PO DAILY Hydrocodone-Apap 5-325 (Hydrocodone Bit/Acetaminophen) 1 Each Tablet 1 Tab PO Q6HRS PRN Eliquis (Apixaban) 2.5 Mg Tablet 2.5 Mg PO DAILY Renvela (Sevelamer Carbonate) 2.4 Gm Powd.pack 2.4 Gm PO TIDWMEALS Miralax (Polyethylene Glycol 3350) 17 Gm Powd.pack 17 Gm PO PRN DAILY PRN Carvedilol 3.125 Mg Tablet 3.125 Mg PO BIDWMEALS Reported Sensipar (Cinacalcet Hcl) 30 Mg Tablet 1 Tab PO DAILY Glimepiride 2 Mg Tablet 4 Mg PO DAILY Novolog (Insulin Aspart) 100 Unit/1 Ml Cartridge 8 Unit SQ TIDAC Atorvastatin Calcium 40 Mg Tablet 1 Tab PO DAILY Vitals/I & O Vital Sign - Last 24 Hours 09/11/16 09/11/16 09/11/16 09/11/16 15:00 15:18 15:56 19:00 Temp 97.3 97.6 97.3 97.6 Pulse 89 94 Resp 20 18 B/P 121/69 142/79 Pulse Ox 91 93 O2 Delivery Room Air Room Air Room Air Room Air 09/11/16 09/11/16 09/11/16 09/11/16 19:30 20:00 20:56 22:00 Temp 97.7 97.7 Pulse 74 Resp 24 18 18 B/P 124/72 Pulse Ox 94 O2 Delivery Room Air Room Air Room Air 09/11/16 09/11/16 09/12/16 09/12/16 22:04 23:00 00:49 02:00 Temp 98.1 98.1 Pulse 103 Resp 18 18 B/P 132/81 Pulse Ox 99 O2 Delivery Room Air Room Air Room Air 09/12/16 09/12/16 09/12/16 09/12/16 02:00 03:00 07:00 07:35 Temp 97.6 97.4 97.6 97.4 Pulse 90 87 Resp 18 18 20 B/P 131/73 169/76 Pulse Ox 93 93 O2 Delivery Room Air Room Air Room Air 09/12/16 09/12/16 09/12/16 09/12/16 07:55 08:57 12:05 12:21 Temp 97.4 97.4 Pulse 104 Resp 20 B/P 129/61 Pulse Ox 98 O2 Delivery Room Air Nasal Cannula Room Air Room Air O2 Flow Rate 2.0 Intake and Output 09/11/16 09/11/16 09/12/16 15:00 23:00 07:00 Intake Total 0 ml Output Total 0 ml Balance 0 ml 0 ml YARED MOSELEY MD Sep 12, 2016 13:30
[2016-09-12] MEDS: VANCOMYCIN PER PHARMACY MC PRN (14:06)
--- NOTE | 2016-09-12 14:49 | PDOC ---
Infectious Disease Note Subjective Subjective Anxious and restless after dialysis per karthikeyan Now sleeping No fever Vital Sign Vital Signs Vital Signs Date Time Temp Pulse Resp B/P Pulse Ox O2 Delivery O2 Flow Rate FiO2 09/12/16 14:14 Room Air 09/12/16 13:11 2.0 09/12/16 12:05 97.4 104 20 129/61 98 97.4 Physical Exam PHYSICAL EXAM GENERAL: Resting quietly, HEENT: Oral cavity dry LUNGS: Clear HEART: S1S2, no gallop, no murmur ABD: Obese, hyperactive BS, soft, NT light palpation. PDC intact. : Posterior penile and scrotal wounds, + thick exudate EXT: No edema, no cyanosis. LUE AV fistula, sutures intact, mild erythema. RLE bandage intact [employer]: Sleeping SKIN: No rash IV: ok HDC. clean Labs Lab Laboratory Tests Test 09/11/16 16:50 09/11/16 20:48 09/11/16 21:00 09/12/16 05:50 Glucose (Fingerstick) 260mg/dL (70-99) 268mg/dL (70-99) Body Fluid Source Perit dialysate Body Fluid Color Straw Body Fluid Clarity Clear Body Fluid Nucleated Cells 133/cmm Body Fluid Mononuclear WBCs (%) 78% Body Fluid Polymorphonuclear Cells 19% Body Fluid Total RBCs Counted 154/cmm Body Fluid Other Cells (%) 3% Sodium Level 134mmol/L (136-145) Potassium Level 4.2mmol/L (3.5-5.1) Chloride Level 96mmol/L (98-107) Carbon Dioxide Level 25mmol/L (21-32) Anion Gap 13 (6-14) Blood Urea Nitrogen 59mg/dL (8-26) Creatinine 5.5mg/dL (0.7-1.3) Estimated GFR (Cockcroft-Gault) 9.9 Glucose Level 275mg/dL (70-99) Calcium Level 8.3mg/dL (8.5-10.1) Phosphorus Level 4.5mg/dL (2.6-4.7) Magnesium Level 2.2mg/dL (1.8-2.4) Albumin 2.1g/dL (3.4-5.0) Test 09/12/16 09:40 09/12/16 11:38 09/12/16 12:13 Glucose (Fingerstick) 161mg/dL (70-99) 125mg/dL (70-99) 140mg/dL (70-99) Objective Assessment Scrotal wound Scrotal cellulitis - better S/p LUE Ligation 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 Pancreatic lesions on CT Plan Plan of Care Cont Vanc, Zosyn & Fluconazole Monitor labs/wounds D/w daughter Patient seen and examined. Chart reviewed. Case discussed with ELECTRIC METER TECHNICIAN. Agree with above plan. CBC/CRP in am. ORI [employer]ER [employer] Sep 12, 2016 14:49 LACY FIELDS MD Sep 12, 2016 16:59
[2016-09-12 15:00] VITALS: BP 121/67
[2016-09-12] MEDS ORDERED: SODIUM THIOSULFATE IV ONE (16:00)
[2016-09-12] MEDS ORDERED: NORMAL SALINE IV ONE (16:00)
[2016-09-12 19:06] VITALS: BP 132/57
[2016-09-12] MEDS: ATORVASTATIN CALCIUM 40 MG TABLET. PO SCH (20:24)
[2016-09-12] MEDS: INSULIN DETEMIR 300 UNITS/3 ML INSULN.PEN. SQ SCH (20:52)
[2016-09-13] MEDS: fentaNYL PF VIAL 100 MCG/2 ML VIAL IV PRN ×3 (02:54→17:02)
[2016-09-13 03:06] VITALS: BP 123/70
[2016-09-13] MEDS: PIPERACILLIN/TAZOBACTAM 2.25 GM in IV NORMAL SALINE 50ML 50 ML IV SCH ×3 (05:10→21:29)
[2016-09-13] MEDS: HALOPERIDOL LACTATE 5 MG/ML VIAL. IVP PRN (05:10)
[2016-09-13 06:05] LABS: ALBUMIN 2.2 g/dL (3.4-5.0); CALCIUM 8.6 mg/dL (8.5-10.1); CREATININE 3.9 mg/dL (0.7-1.3); GFR 14.7; PHOSPHORUS 2.2 mg/dL (2.6-4.7); POTASSIUM 4.2 mmol/L (3.5-5.1)
[2016-09-13 07:00] VITALS: BP 135/72
[2016-09-13] MEDS: INSULIN ASPART 300 UNITS/3 ML INSULN.PEN SQ SCH ×7 (07:30→21:00)
[2016-09-13] MEDS: PANTOPRAZOLE 40 MG TABLET.DR. PO SCH (07:30)
[2016-09-13] MEDS: SEVELAMER CARBONATE 800 MG TABLET. PO SCH ×3 (08:00→17:00)
[2016-09-13] MEDS: CARVEDILOL 3.125 MG TABLET. PO SCH ×2 (08:00→17:00)
[2016-09-13] MEDS: VITS A & D/LANOLIN TOPICAL OINTMENT 56GM TUBE. TP SCH ×3 (08:22→21:00)
[2016-09-13] MEDS: FLUCONAZOLE 100 MG TABLET. PO SCH (08:28)
[2016-09-13] MEDS: CINACALCET HCL 30 MG TABLET PO SCH (08:28)
[2016-09-13] MEDS: ALLOPURINOL 100 MG TABLET. PO SCH (08:28)
[2016-09-13] MEDS: APIXABAN 2.5 MG TABLET. PO SCH ×2 (08:28→19:51)
[2016-09-13] MEDS: DOCUSATE SODIUM 100 MG CAPSULE. PO SCH (08:28)
--- NOTE | 2016-09-13 10:27 | PDOC ---
Renal-Progress Notes Subjective Notes Notes CONFUSED History of Present Illness Hx of present illness STABLE Vitals Vitals Vital Signs Date Time Temp Pulse Resp B/P Pulse Ox O2 Delivery O2 Flow Rate FiO2 09/13/16 07:00 97.9 65 20 135/72 99 Room Air 97.9 09/13/16 03:24 2.0 Weight Weight [ ] I.O. Intake and Output Intake and Output 09/13/16 07:00 Intake Total 70 ml Output Total 0 ml Balance 70 ml Intake Oral 70 ml Output Urine Total 0 ml Labs Labs Laboratory Tests Test 09/12/16 11:38 09/12/16 12:13 09/12/16 17:05 09/12/16 20:49 Glucose (Fingerstick) 125mg/dL (70-99) 140mg/dL (70-99) 150mg/dL (70-99) 173mg/dL (70-99) Test 09/13/16 04:35 09/13/16 04:38 09/13/16 07:29 Magnesium Level 1.9mg/dL (1.8-2.4) Sodium Level 142mmol/L (136-145) Potassium Level 4.2mmol/L (3.5-5.1) Chloride Level 99mmol/L (98-107) Carbon Dioxide Level 22mmol/L (21-32) Anion Gap 21 (6-14) Blood Urea Nitrogen 31mg/dL (8-26) Creatinine 3.9mg/dL (0.7-1.3) Estimated GFR (Cockcroft-Gault) 14.7 Glucose Level 205mg/dL (70-99) Calcium Level 8.6mg/dL (8.5-10.1) Phosphorus Level 2.2mg/dL (2.6-4.7) Albumin 2.2g/dL (3.4-5.0) Glucose (Fingerstick) 211mg/dL (70-99) Micro Micro Microbiology 09/07/16 Blood Culture - Final, Complete NO GROWTH AFTER 5 DAYS Review of Systems Constitutional: yes: no symptom reported Physical Exam General Appearance: no apparent distress Skin: warm Respiratory: bilateral CTA Heart: S1S2, RRR Abdomen: soft, bowel sounds present Genitourinary: bladder flat Extremities: pulses present Neurology: confused Assessment Assessment IMP ESRD ANEMIA SCROTAL CELLULITIS MET ENCEPHALOPATHY DEMENTIA PLAN ON PPN HD TOMORROW CONT WITH ANTIBIOTICS WILL FOLLOW FLAKO CALLES MD Sep 13, 2016 10:27
[2016-09-13 11:00] VITALS: BP 122/60
--- NOTE | 2016-09-13 11:34 | PDOC ---
Infectious Disease Note Subjective Subjective Increase anxiety and restlessness per family No fever ROS ROS Unobtainable Vital Sign Vital Signs Vital Signs Date Time Temp Pulse Resp B/P Pulse Ox O2 Delivery O2 Flow Rate FiO2 09/13/16 11:00 98.0 117 20 122/60 98 Room Air 98.0 09/13/16 07:35 2.0 Physical Exam PHYSICAL EXAM GENERAL: Resting quietly, [place] HEENT: Oral cavity dry LUNGS: Clear HEART: S1S2, no gallop, no murmur ABD: Obese, hyperactive BS, soft, no grimace to palpation. PDC intact. : Posterior penile and scrotal wounds, + thick exudate/slough, scrotal mild/ mod excoriation EXT: No edema, no cyanosis. LUE AV fistula, sutures intact, less erythema. 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 clean Labs Lab Laboratory Tests Test 09/12/16 11:38 09/12/16 12:13 09/12/16 17:05 09/12/16 20:49 Glucose (Fingerstick) 125mg/dL (70-99) 140mg/dL (70-99) 150mg/dL (70-99) 173mg/dL (70-99) Test 09/13/16 04:35 09/13/16 04:38 09/13/16 07:29 Magnesium Level 1.9mg/dL (1.8-2.4) Sodium Level 142mmol/L (136-145) Potassium Level 4.2mmol/L (3.5-5.1) Chloride Level 99mmol/L (98-107) Carbon Dioxide Level 22mmol/L (21-32) Anion Gap 21 (6-14) Blood Urea Nitrogen 31mg/dL (8-26) Creatinine 3.9mg/dL (0.7-1.3) Estimated GFR (Cockcroft-Gault) 14.7 Glucose Level 205mg/dL (70-99) Calcium Level 8.6mg/dL (8.5-10.1) Phosphorus Level 2.2mg/dL (2.6-4.7) Albumin 2.2g/dL (3.4-5.0) Glucose (Fingerstick) 211mg/dL (70-99) Objective Assessment Scrotal wound Scrotal cellulitis - better S/p LUE Ligation 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 Pancreatic lesions on CT Plan Plan of Care Cont Vanc, Zosyn & Fluconazole Monitor labs/wounds D/w family Patient seen and examined. Chart reviewed. 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 Agree with above plan ORI PIPER P[employer] GUARD Sep 13, 2016 11:34 LACY FIELDS MD Sep 13, 2016 15:53
--- NOTE | 2016-09-13 13:11 | PDOC ---
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 i explained for 10min, that CA199 is pending, and defer to GI if need more image. Pt seems not want HD, add more meds for nausea, checked KUB ok, defer to renal if want cont PD. got HD on 09/12. PAT consult on Wednesday talked to nurse, may need uro consult again, since may still need debridement which is not done as per uro last week. head CT today. History of Present Illness History of Present Illness wound care, local treatment still scrotum wound with pus exudate, pain left hand cold with mild weakness, warmer post sx on 09/09 has PD, now on HD very nauseated, low po intake, doesnot want HD which makes him uncomfortable on 09/11, agreed on 09/12 delerium with uremia likely since 09/12 Vitals Vitals Vital Signs Date Time Temp Pulse Resp B/P Pulse Ox O2 Delivery O2 Flow Rate FiO2 09/13/16 12:36 Nasal Cannula 2.0 09/13/16 11:00 98.0 117 20 122/60 98 98.0 Physical Exam Physical Exam delerium, not answer questions, closing eyes General: Alert, Cooperative Heart: No murmurs Lungs: Clear Abdomen: Normal bowel sounds, Soft Extremities: No cyanosis, Other (tr edema) Skin: Other (scrotal swelling, erythema and ulceration under the penis, PUS exudate seen) Labs LABS Laboratory Tests Test 09/12/16 17:05 09/12/16 20:49 09/13/16 04:35 09/13/16 04:38 Glucose (Fingerstick) 150mg/dL (70-99) 173mg/dL (70-99) Magnesium Level 1.9mg/dL (1.8-2.4) Sodium Level 142mmol/L (136-145) Potassium Level 4.2mmol/L (3.5-5.1) Chloride Level 99mmol/L (98-107) Carbon Dioxide Level 22mmol/L (21-32) Anion Gap 21 (6-14) Blood Urea Nitrogen 31mg/dL (8-26) Creatinine 3.9mg/dL (0.7-1.3) Estimated GFR (Cockcroft-Gault) 14.7 Glucose Level 205mg/dL (70-99) Calcium Level 8.6mg/dL (8.5-10.1) Phosphorus Level 2.2mg/dL (2.6-4.7) Albumin 2.2g/dL (3.4-5.0) Test 09/13/16 07:29 09/13/16 11:59 Glucose (Fingerstick) 211mg/dL (70-99) 154mg/dL (70-99) Review of Systems Review of Systems no fever, chills, sob or chest pain Assessment and Plan Assessmemt and Plan Problems Medical Problems: (1) Open wound of scrotum Status: Acute Problems: Comment Review of Relevant I have reviewed the following items robert (where applicable) has been applied. Labs Laboratory Tests Test 09/11/16 16:50 09/11/16 20:48 09/11/16 21:00 09/12/16 05:50 Glucose (Fingerstick) 260mg/dL (70-99) 268mg/dL (70-99) Body Fluid Source Perit dialysate Body Fluid Color Straw Body Fluid Clarity Clear Body Fluid Nucleated Cells 133/cmm Body Fluid Mononuclear WBCs (%) 78% Body Fluid Polymorphonuclear Cells 19% Body Fluid Total RBCs Counted 154/cmm Body Fluid Other Cells (%) 3% Sodium Level 134mmol/L (136-145) Potassium Level 4.2mmol/L (3.5-5.1) Chloride Level 96mmol/L (98-107) Carbon Dioxide Level 25mmol/L (21-32) Anion Gap 13 (6-14) Blood Urea Nitrogen 59mg/dL (8-26) Creatinine 5.5mg/dL (0.7-1.3) Estimated GFR (Cockcroft-Gault) 9.9 Glucose Level 275mg/dL (70-99) Calcium Level 8.3mg/dL (8.5-10.1) Phosphorus Level 4.5mg/dL (2.6-4.7) Magnesium Level 2.2mg/dL (1.8-2.4) Albumin 2.1g/dL (3.4-5.0) Test 09/12/16 09:40 09/12/16 11:38 09/12/16 12:13 09/12/16 17:05 Glucose (Fingerstick) 161mg/dL (70-99) 125mg/dL (70-99) 140mg/dL (70-99) 150mg/dL (70-99) Test 09/12/16 20:49 09/13/16 04:35 09/13/16 04:38 09/13/16 07:29 Glucose (Fingerstick) 173mg/dL (70-99) 211mg/dL (70-99) Magnesium Level 1.9mg/dL (1.8-2.4) Sodium Level 142mmol/L (136-145) Potassium Level 4.2mmol/L (3.5-5.1) Chloride Level 99mmol/L (98-107) Carbon Dioxide Level 22mmol/L (21-32) Anion Gap 21 (6-14) Blood Urea Nitrogen 31mg/dL (8-26) Creatinine 3.9mg/dL (0.7-1.3) Estimated GFR (Cockcroft-Gault) 14.7 Glucose Level 205mg/dL (70-99) Calcium Level 8.6mg/dL (8.5-10.1) Phosphorus Level 2.2mg/dL (2.6-4.7) Albumin 2.2g/dL (3.4-5.0) Test 09/13/16 11:59 Glucose (Fingerstick) 154mg/dL (70-99) Laboratory Tests Test 09/12/16 17:05 09/12/16 20:49 09/13/16 04:35 09/13/16 04:38 Glucose (Fingerstick) 150mg/dL (70-99) 173mg/dL (70-99) Magnesium Level 1.9mg/dL (1.8-2.4) Sodium Level 142mmol/L (136-145) Potassium Level 4.2mmol/L (3.5-5.1) Chloride Level 99mmol/L (98-107) Carbon Dioxide Level 22mmol/L (21-32) Anion Gap 21 (6-14) Blood Urea Nitrogen 31mg/dL (8-26) Creatinine 3.9mg/dL (0.7-1.3) Estimated GFR (Cockcroft-Gault) 14.7 Glucose Level 205mg/dL (70-99) Calcium Level 8.6mg/dL (8.5-10.1) Phosphorus Level 2.2mg/dL (2.6-4.7) Albumin 2.2g/dL (3.4-5.0) Test 09/13/16 07:29 09/13/16 11:59 Glucose (Fingerstick) 211mg/dL (70-99) 154mg/dL (70-99) Microbiology 09/07/16 Blood Culture - Final, Complete NO GROWTH AFTER 5 DAYS Medications Current Medications Meropenem/Sodium Chloride (Merrem/Iv Sodium Chloride 0.9% 100ml) 100 ml @ 200 mls/hr Q8HRS IV ; Start 09/07/16 at 22:00; Status UNV Vancomycin HCl 1 each 1 each PRN DAILY PRN MC SEE COMMENTS Last administered on 09/12/16 14:06; Start 09/07/16 at 20:45 Sodium Chloride (Iv Sodium Chloride 0.9% 500ml Bag) 500 ml @ 500 mls/hr 1X ONCE IV Last administered on 09/07/16 21:04; Start 09/07/16 at 21:00; Stop at 21:59; Status DC Hydromorphone HCl 1 mg 1 mg 1X ONCE IV Last administered on 09/07/16 20:59; Start 09/07/16 at 21:00; Stop 09/07/16 at 21:01; Status DC Meropenem 500 mg/ Sodium Chloride 50 ml @ 100 mls/hr QHS IV Last administered on 09/07/16 21:05; Start 09/07/16 at 21:00; Stop 09/08/16 at 07:59; Status DC Vancomycin HCl/ Sodium Chloride (Iv Sodium Chloride 0.9% 500ml Bag) 500 ml @ 250 mls/hr 1X ONCE IV Last administered on 09/07/16 22:07; Start 09/07/16 at 21:30; Stop 09/07/16 at 23:29; Status DC Ondansetron HCl (Zofran) 4 mg PRN Q8HRS PRN IV NAUSEA/VOMITING Last administered on 09/07/16 22:43; Start 09/07/16 at 22:00; Stop 09/08/16 at 21:59 ; Status DC Morphine Sulfate 4 mg 4 mg PRN Q2HR PRN IV SEVERE PAIN Last administered on 21:12; Start 09/07/16 at 22:00; Stop 09/08/16 at 21:59; Status DC Sodium Chloride (Iv Sodium Chloride 0.9% 1000ml Bag) 1,000 ml @ 75 mls/hr [id number] IV Last administered on 09/08/16 12:56; Start 09/07/16 at 21:52; Stop 09/08/16 at 21:51; Status DC Insulin Aspart (Novolog) 0-7 UNITS TIDWMEALS SQ ; Start 09/08/16 at 08:00; Stop 09/08/16 at 08:00; Status DC Dextrose (Dextrose 50%-Water Syringe) 12.5 gm PRN Q15MIN PRN IV SEE COMMENTS Last administered on 09/08/16 21:03; Start 09/07/16 at 22:30 Allopurinol (Zyloprim) 100 mg DAILY PO Last administered on 09/12/16 13:11; Start 09/08/16 at 09:00 Apixaban (Eliquis) 2.5 mg DAILY PO Last administered on 09/08/16 07:59; Start 09/08/16 at 09:00; Stop 09/08/16 at 10:43; Status DC Atorvastatin Calcium (Lipitor) 40 mg QHS PO Last administered on 09/11/16 20: 55; Start 09/08/16 at 21:00 Carvedilol (Coreg) 3.125 mg BIDWMEALS PO Last administered on 09/10/16 18:25; Start 09/08/16 at 08:00 Cinacalcet (Sensipar) 30 mg DAILY PO Last administered on 09/12/16 13:11; Start 09/08/16 at 09:00 Glimepiride (Amaryl) 4 mg DAILY PO Last administered on 09/08/16 07:59; Start 09/08/16 at 09:00; Stop 09/09/16 at 13:46; Status DC Acetaminophen/ Hydrocodone Bitart (Lortab 5/325) 1 tab PRN Q6HRS PRN PO SEVERE PAIN Last administered on 09/09/16 06:16; Start 09/07/16 at 22:30; Stop at 14:14; Status DC Polyethylene Glycol (miraLAX PACKET) 17 gm PRN DAILY PRN PO CONSTIPATION; Start 09/07/16 at 22:30 Sevelamer Carbonate (Renvela) 2.4 gm TIDWMEALS PO Last administered on 07:59; Start 09/08/16 at 08:00; Stop 09/08/16 at 12:01; Status DC Vitamin A/Vitamin D (Vitamin A & D Ointment) 1 katie TID TP Last administered on 09/13/16 08:22; Start 09/08/16 at 09:00 Docusate Sodium (Colace) 100 mg PRN DAILY PRN PO CONSTIPATION; Start 09/07/16 at 22:45 Docusate Sodium (Colace) 100 mg DAILY PO Last administered on 09/12/16 13:10; Start 09/08/16 at 09:00 Potassium Chloride (Klor-Con) 20 meq 1X ONCE PO Last administered on 01:38; Start 09/07/16 at 23:00; Stop 09/07/16 at 23:01; Status DC Insulin Aspart (Novolog) 0-7 UNITS QIDACHS SQ Last administered on 09/11/16 21 :13; Start 09/07/16 at 22:45 Info (Anti-Coagulation Monitoring By Pharmacy) 1 each PRN DAILY PRN MC SEE COMMENTS Last administered on 09/08/16 02:30; Start 09/07/16 at 23:45 Vancomycin HCl 1 each 1 each 1X ONCE MC ; Start 09/11/16 at 21:30; Stop at 21:30; Status DC Vancomycin HCl 1.5 gm/Sodium Chloride 500 ml @ 250 mls/hr Q48H IV ; Start 09/09 at 22:00; Stop 09/09/16 at 22:00; Status DC Piperacillin Sod/ Tazobactam Sod/ Sodium Chloride (Zosyn/Iv Sodium Chloride 0.9 % 50ml) 50 ml @ 100 mls/hr Q8HRS IV Last administered on 09/10/16 06:11; Start 09/08/16 at 08:30; Stop 09/10/16 at 09:00; Status DC Fluconazole (Diflucan) 100 mg DAILY PO Last administered on 09/12/16 13:11; Start 09/08/16 at 09:00 Darbepoetin Lasha (Aranesp) 60 mcg [id number] SQ Last administered on 09/08/16 21 :06; Start 09/08/16 at 21:00 Apixaban (Eliquis) 2.5 mg BID PO Last administered on 09/12/16 20:24; Start at 21:00 Vancomycin HCl 1 each 1X ONCE MC Last administered on 09/09/16 06:00; Start 09/09/16 at 06:00; Stop 09/09/16 at 06:01; Status DC Sevelamer Carbonate (Renvela) 2,400 mg TIDWMEALS PO Last administered on 12:20; Start 09/08/16 at 12:00 Insulin Aspart (Novolog) 8 units TIDAC SQ Last administered on 09/10/16 08:41 ; Start 09/08/16 at 12:00; Stop 09/10/16 at 10:17; Status DC Lorazepam (Ativan) 0.5 mg PRN Q6HRS PRN PO ANXIETY / AGITATION Last administered on 09/11/16 11:45; Start 09/08/16 at 13:00 Fentanyl Citrate (Fentanyl 2ml Vial) 25 mcg PRN Q5MIN PRN IV MILD PAIN; Start 09/09/16 at 07:00; Stop 09/10/16 at 06:59; Status DC Fentanyl Citrate (Fentanyl 2ml Vial) 50 mcg PRN Q5MIN PRN IV MODERATE PAIN; Start 09/09/16 at 07:00; Stop 09/10/16 at 06:59; Status DC Morphine Sulfate 1 mg PRN Q10MIN PRN IV SEVERE PAIN; Start 09/09/16 at 07:00; Stop 09/10/16 at 06:59; Status DC Lidocaine HCl 2 ml PRN 1X PRN ID PRIOR TO IV START; Start 09/09/16 at 07:00; Stop 09/10/16 at 06:59; Status DC Hydromorphone HCl (Dilaudid) 0.5 mg PRN Q10MIN PRN IV SEV PAIN, Second choice; Start 09/09/16 at 07:00; Stop 09/10/16 at 06:59; Status DC Prochlorperazine Edisylate 5 mg 5 mg PACU PRN PRN IV NAUSEA, MRX1; Start at 07:00; Stop 09/10/16 at 06:59; Status DC Sodium Chloride (Iv Sodium Chloride 0.9% 1000ml Bag) 1,000 ml @ 0 mls/hr Q0M IV ; Start 09/09/16 at 12:00; Stop 09/10/16 at 10:51; Status DC Morphine Sulfate 4 mg PRN Q2HR PRN IV SEVERE PAIN Last administered on t 10:43; Start 09/09/16 at 01:00; Stop 09/11/16 at 15:23; Status DC Lidocaine HCl 30 ml STK-MED ONCE .ROUTE ; Start 09/09/16 at 07:12; Stop at 07:13; Status DC Cellulose 1 each STK-MED ONCE .ROUTE ; Start 09/09/16 at 07:12; Stop 09/09/16 at 07:13; Status DC Papaverine HCl 60 mg 60 mg STK-MED ONCE .ROUTE ; Start 09/09/16 at 07:13; Stop 09/09/16 at 07:14; Status DC Sodium Chloride 1,000 ml @ 1,000 mls/hr Q1H PRN IV hypotension; Start 09/09/16 at 07:30; Stop 09/09/16 at 13:29; Status DC Albumin Human (Albuminar) 200 ml @ 200 mls/hr 1X PRN PRN IV Hypotension Last administered on 09/09/16t 09:37; Start 09/09/16 at 07:30; Stop 09/09/16 at 13:29 ; Status DC Acetaminophen (Tylenol) 500 mg 1X PRN PRN PO MILD PAIN / TEMP; Start 09/09/16 at 07:30; Stop 09/10/16 at 07:29; Status DC Diphenhydramine HCl (Benadryl) 25 mg 1X PRN PRN IV ITCHING; Start 09/09/16 at 07:30; Stop 09/10/16 at 07:29; Status DC Diphenhydramine HCl (Benadryl) 25 mg 1X PRN PRN IV ITCHING; Start 09/09/16 at 07:30; Stop 09/10/16 at 07:29; Status DC Labetalol HCl (Normodyne) 10 mg PRN Q1HR PRN IVP SBP > 180; Start 09/09/16 at 07:30; Stop 09/10/16 at 07:29; Status DC Clonidine HCl 0.1 mg 0.1 mg 1X PRN PRN PO SBP > 180; Start 09/09/16 at 07:30; Stop 09/10/16 at 07:29; Status DC Sodium Chloride (Iv Sodium Chloride 0.9% 1000ml Bag) 1,000 ml @ 400 mls/hr Q2H30M PRN IV PATENCY; Start 09/09/16 at 07:30; Stop 09/09/16 at 19:29; Status DC Info 1 each 1 each PRN DAILY PRN MC SEE COMMENTS; Start 09/09/16 at 07:30 Heparin Sodium (Porcine) 5000 unit/Sodium Chloride 505 ml @ 505 mls/hr 1X PERIOP ONCE IRR ; Start 09/09/16 at 09:00; Stop 09/09/16 at 09:59; Status DC Cefazolin Sodium 1 gm/Sodium Chloride 500 ml @ 500 mls/hr 1X PERIOP ONCE IRR ; Start 09/09/16 at 09:00; Stop 09/09/16 at 09:59; Status DC Cefazolin Sodium (Ancef 1gm Ivpb For Omni) 0 ml @ As Directed STK-MED ONCE IV ; Start 09/09/16 at 13:23; Stop 09/09/16 at 13:24; Status DC Acetaminophen/ Hydrocodone Bitart (Lortab 5/325) 1 tab PRN Q4HRS PRN PO PAIN; Start 09/09/16 at 14:15; Stop 09/11/16 at 11:52; Status DC Acetaminophen/ Hydrocodone Bitart (Lortab 5/325) 2 tab PRN Q4HRS PRN PO PAIN Last administered on 09/11/16 04:49; Start 09/09/16 at 14:15; Stop 09/11/16 at 11:52; Status DC Midazolam HCl (Versed) 2 mg STK-MED ONCE .ROUTE ; Start 09/09/16 at 14:06; Stop 09/09/16 at 14:07; Status DC Fentanyl Citrate 100 mcg 100 mcg STK-MED ONCE .ROUTE ; Start 09/09/16 at 14:06; Stop 09/09/16 at 14:07; Status DC Vancomycin HCl/ Sodium Chloride (Iv Sodium Chloride 0.9% 100ml) 100 ml @ 100 mls/hr QMWF IV Last administered on 09/09/16 17:36; Start 09/09/16 at 16:00; Stop 09/11/16 at 15:32; Status DC Lidocaine HCl 20 ml STK-MED ONCE .ROUTE ; Start 09/09/16 at 14:11; Stop at 14:12; Status DC Lidocaine HCl 20 ml STK-MED ONCE .ROUTE ; Start 09/09/16 at 14:11; Stop at 14:12; Status DC Cellulose 1 each STK-MED ONCE .ROUTE ; Start 09/09/16 at 14:12; Stop 09/09/16 at 14:13; Status DC Papaverine HCl 60 mg 60 mg STK-MED ONCE .ROUTE ; Start 09/09/16 at 14:12; Stop 09/09/16 at 14:13; Status DC Propofol (Diprivan) 20 ml @ As Directed STK-MED ONCE IV ; Start 09/09/16 at 14: 51; Stop 09/09/16 at 14:52; Status DC Amoxicillin/ Clavulanate Potassium (Augmentin 500/ 125mg) 1 tab DAILY PO Last administered on 09/10/16 10:43; Start 09/10/16 at 10:00; Stop 09/11/16 at 10:47 ; Status DC Insulin Aspart (Novolog) 5 units TIDAC SQ Last administered on 09/13/16 08:27 ; Start 09/10/16 at 11:30 Insulin Detemir (Levemir) 10 units QHS SQ Last administered on 09/10/16 21:46 ; Start 09/10/16 at 21:00; Stop 09/11/16 at 10:42; Status DC Sodium Thiosulfate 25 gm 25 gm 3X/WEEK IV ; Start 09/11/16 at 09:00; Status UNV Magnesium Sulfate/ Dextrose 50 ml @ 25 mls/hr PRN DAILY PRN IV for Mag < 1.7 on am labs; Start 09/10/16 at 10:45 Sodium Thiosulfate 25 gm/ Sodium Chloride 100 ml @ 100 mls/hr 3X/WEEK@16 IV ; Start 09/11/16 at 16:00 Amino Acids/ Glycerin/ Electrolytes (Procalamine) 1,000 ml @ 80 mls/hr [id number] IV Last administered on 09/12/16 20:23; Start 09/10/16 at 11:30 Fentanyl Citrate (Fentanyl 2ml Vial) 25 mcg PRN Q2HR PRN IV PAIN Last administered on 09/13/16 12:04; Start 09/10/16 at 13:00 Albuterol Sulfate (Ventolin Neb Soln) 2.5 mg PRN Q4HRS PRN NEB SHORTNESS OF BREATH Last administered on 09/12/16 08:56; Start 09/10/16 at 13:30 Tramadol HCl (Ultram) 50 mg PRN Q6HRS PRN PO PAIN Last administered on 08:39; Start 09/10/16 at 13:45 Ondansetron HCl (Zofran) 4 mg PRN Q6HRS PRN IV NAUSEA/VOMITING Last administered on 09/11/16 08:39; Start 09/10/16 at 19:15 Calcium Carbonate/ Glycine (Tums) 500 mg TID PRN PO INDIGESTION; Start at 19:15 Pantoprazole Sodium (Protonix) 40 mg DAILYAC PO Last administered on 09/11/16 08:38; Start 09/10/16 at 20:00 Prochlorperazine Edisylate (Compazine) 10 mg PRN Q6HRS PRN IV NAUSEA/VOMITING Last administered on 09/11/16 10:49; Start 09/11/16 at 10:30 Insulin Detemir (Levemir) 15 units QHS SQ Last administered on 09/12/16 20:52 ; Start 09/11/16 at 21:00 Metoclopramide HCl 5 mg 5 mg PRN Q6HRS PRN IV NAUSEA/VOMITING Last administered on 09/11/16 20:55; Start 09/11/16 at 10:45 Piperacillin Sod/ Tazobactam Sod/ Sodium Chloride (Zosyn/Iv Sodium Chloride 0.9 % 50ml) 50 ml @ 100 mls/hr Q8HRS IV Last administered on 09/13/16 05:10; Start 09/11/16 at 14:00 Oxycodone/ Acetaminophen 1 tab 1 tab PRN Q4HRS PRN PO PAIN Last administered on 09/12/16 20:24; Start 09/11/16 at 12:00 Sodium Thiosulfate/ Sodium Chloride (Sodium Thiosulfate/Iv Sodium Chloride 0.9% 100ml) 100 ml @ 100 mls/hr 1X ONCE IV Last administered on 09/12/16 16:00; Start 09/12/16 at 16:00; Stop 09/12/16 at 16:59; Status DC Lorazepam (Ativan) 1 mg 1X ONCE IV ; Start 09/11/16 at 18:00; Stop 09/11/16 at 18:01; Status DC Haloperidol Lactate (Haldol) 2 mg PRN Q24HRS PRN IVP AGITATION Last administered on 09/13/16 05:10; Start 09/11/16 at 18:00 Lorazepam 1 mg 1 mg 1X ONCE IV Last administered on 09/12/16 03:14; Start at 01:00; Stop 09/12/16 at 01:01; Status DC Sodium Chloride (Iv Sodium Chloride 0.9% 1000ml Bag) 1,000 ml @ 1,000 mls/hr Q1H PRN IV hypotension; Start 09/12/16 at 08:00; Stop 09/12/16 at 13:59; Status DC Diphenhydramine HCl 50 mg 50 mg 1X PRN PRN IV ITCHING Last administered on 09/12 09:06; Start 09/12/16 at 08:45; Stop 09/12/16 at 16:00; Status DC Sodium Chloride (Iv Sodium Chloride 0.9% 1000ml Bag) 1,000 ml @ 400 mls/hr Q2H30M PRN IV PATENCY; Start 09/12/16 at 08:00; Stop 09/12/16 at 19:59; Status DC Info (PHARMACY MONITORING -- do not chart) 1 each PRN DAILY PRN MC SEE COMMENTS ; Start 09/12/16 at 08:45; Status UNV Lorazepam 0.5 mg 0.5 mg PRN Q6HRS PRN IV ANXIETY / AGITATION Last administered on 09/13/16 08:04; Start 09/12/16 at 11:00 Vancomycin HCl/ Sodium Chloride (Iv Sodium Chloride 0.9% 100ml) 100 ml @ 100 mls/hr 1X ONCE IV Last administered on 09/12/16 14:40; Start 09/12/16 at 13: 00; Stop 09/12/16 at 13:59; Status DC Active Scripts Active Mupirocin Ointment (Mupirocin) 22 Gm Oint...g. 1 Katie TP TID Vitamin A & D Ointment (Vits A & D/White Pet/Lanolin) 56.7 Gm Oint...g. 1 Katie TP TID Diflucan (Fluconazole) 100 Mg Tablet 100 Mg PO DAILY Allopurinol 100 Mg Tablet 100 Mg PO DAILY Hydrocodone-Apap 5-325 (Hydrocodone Bit/Acetaminophen) 1 Each Tablet 1 Tab PO Q6HRS PRN Eliquis (Apixaban) 2.5 Mg Tablet 2.5 Mg PO DAILY Renvela (Sevelamer Carbonate) 2.4 Gm Powd.pack 2.4 Gm PO TIDWMEALS Miralax (Polyethylene Glycol 3350) 17 Gm Powd.pack 17 Gm PO PRN DAILY PRN Carvedilol 3.125 Mg Tablet 3.125 Mg PO BIDWMEALS Reported Sensipar (Cinacalcet Hcl) 30 Mg Tablet 1 Tab PO DAILY Glimepiride 2 Mg Tablet 4 Mg PO DAILY Novolog (Insulin Aspart) 100 Unit/1 Ml Cartridge 8 Unit SQ TIDAC Atorvastatin Calcium 40 Mg Tablet 1 Tab PO DAILY Vitals/I & O Vital Sign - Last 24 Hours 09/12/16 09/12/16 09/12/16 09/12/16 13:11 15:00 19:06 20:00 Temp 98.1 97.7 98.1 97.7 Pulse 106 73 Resp 16 18 B/P 121/67 132/57 Pulse Ox 95 87 O2 Delivery Room Air Room Air Room Air Nasal Cannula O2 Flow Rate 2.0 2.0 09/12/16 09/12/16 09/13/16 09/13/16 20:24 21:24 02:54 03:06 Temp 98.0 98.0 Pulse 93 Resp 20 19 20 18 B/P 123/70 Pulse Ox 87 87 86 O2 Delivery Room Air Nasal Cannula Nasal Cannula Room Air O2 Flow Rate 2.0 2.0 09/13/16 09/13/16 09/13/16 09/13/16 03:24 07:00 07:35 11:00 Temp 97.9 98.0 97.9 98.0 Pulse 65 117 Resp 20 20 20 B/P 135/72 122/60 Pulse Ox 99 98 O2 Delivery Room Air Nasal Cannula Room Air O2 Flow Rate 2.0 09/13/16 09/13/16 12:04 12:36 O2 Delivery Nasal Cannula Nasal Cannula O2 Flow Rate 2.0 2.0 Intake and Output 09/12/16 09/12/16 09/13/16 15:00 23:00 07:00 Intake Total 50 ml 20 ml Output Total 0 ml Balance 50 ml 20 ml YARED MOSELEY MD Sep 13, 2016 13:11
[2016-09-13] MEDS: AMINO AC 3%/ELECTROLYTE/GLYCER 1,000 ML IV SCH (14:15)
[2016-09-13] MEDS: VANCOMYCIN PER PHARMACY MC PRN (14:31)
[2016-09-13 15:00] VITALS: BP 129/64
[2016-09-13] MEDS ORDERED: LIDOCAINE (700MG/PATCH) PATCH. TD SCH (19:00)
[2016-09-13 19:40] VITALS: BP 136/64
[2016-09-13] MEDS: oxyCODONE/APAP 5/325 1 TAB TABLET PO PRN (19:51)
[2016-09-13] MEDS: ATORVASTATIN CALCIUM 40 MG TABLET. PO SCH (19:52)
[2016-09-13] MEDS: MORPHINE SULFATE 2 MG/ML DISP.SYRIN. IV PRN (19:53)
[2016-09-13] MEDS: LIDOCAINE 2% TOPICAL JELLY 30GM TUBE. TP SCH (21:00)
[2016-09-13] MEDS: INSULIN DETEMIR 300 UNITS/3 ML INSULN.PEN. SQ SCH (21:32)
[2016-09-14] MEDS: MORPHINE SULFATE 2 MG/ML DISP.SYRIN. IV PRN ×7 (00:46→22:58)
[2016-09-14] MEDS: AMINO AC 3%/ELECTROLYTE/GLYCER 1,000 ML IV SCH ×2 (01:51→17:23)
[2016-09-14] MEDS: PIPERACILLIN/TAZOBACTAM 2.25 GM in IV NORMAL SALINE 50ML 50 ML IV SCH ×3 (04:55→21:55)
[2016-09-14] MEDS: HALOPERIDOL LACTATE 5 MG/ML VIAL. IVP PRN ×3 (05:13→17:31)
[2016-09-14 06:45] LABS: BASO # 0.1 x10^3/uL (0.0-0.2); BASO % 1 % (0-3); EOS % 5 % (0-3); HEMATOCRIT 24.7 % (39.0-53.0); HEMOGLOBIN 8.2 g/dL (13.0-17.5); LYMPH % 13 % (24-48); MEAN CORPUSCULAR HEMOGLOBIN 32 pg (25-35); MEAN CORPUSCULAR HGB CONC 33 g/dL (31-37); MEAN CORPUSCULAR VOLUME 97 fL (79-100); MONO % 8 % (0-9); NEUT % 73 % (31-73); PLATELET COUNT 254 x10^3/uL (140-400); RED BLOOD COUNT 2.54 x10^6/uL (4.30-5.70); RED CELL DISTRIBUTION WIDTH 16.9 % (11.5-14.5)
[2016-09-14 07:00] VITALS: BP 149/62
[2016-09-14 07:15] LABS: ALBUMIN 2.2 g/dL (3.4-5.0); CALCIUM 8.9 mg/dL (8.5-10.1); CREATININE 5.1 mg/dL (0.7-1.3); GFR 10.8; PHOSPHORUS 2.8 mg/dL (2.6-4.7); POTASSIUM 4.3 mmol/L (3.5-5.1)
[2016-09-14] MEDS: INSULIN ASPART 300 UNITS/3 ML INSULN.PEN SQ SCH ×7 (07:30→21:00)
[2016-09-14] MEDS: PANTOPRAZOLE 40 MG TABLET.DR. PO SCH (07:30)
[2016-09-14] MEDS: SEVELAMER CARBONATE 800 MG TABLET. PO SCH ×3 (08:00→17:00)
[2016-09-14] MEDS: CARVEDILOL 3.125 MG TABLET. PO SCH ×2 (08:00→12:52)
[2016-09-14] MEDS: DOCUSATE SODIUM 100 MG CAPSULE. PO SCH (08:46)
[2016-09-14] MEDS: CINACALCET HCL 30 MG TABLET PO SCH (09:00)
[2016-09-14] MEDS: FLUCONAZOLE 100 MG TABLET. PO SCH (09:00)
[2016-09-14] MEDS: APIXABAN 2.5 MG TABLET. PO SCH ×2 (09:00→21:00)
[2016-09-14] MEDS: LIDOCAINE 2% TOPICAL JELLY 30GM TUBE. TP SCH ×3 (09:00→21:00)
[2016-09-14] MEDS: ALLOPURINOL 100 MG TABLET. PO SCH (09:00)
[2016-09-14] MEDS: VITS A & D/LANOLIN TOPICAL OINTMENT 56GM TUBE. TP SCH ×3 (09:00→21:00)
[2016-09-14] MEDS ORDERED: IV NORMAL SALINE 1000ML BAG 1,000 ML IV PRN ×2 (10:06)
[2016-09-14] MEDS ORDERED: DIALYSIS PATIENT. MC PRN (10:15)
[2016-09-14] MEDS ORDERED: 0.9 % SODIUM CHLORIDE 10 ML DISP.SYRIN. IV PRN ×2 (10:15)
[2016-09-14 11:00] VITALS: BP 141/67
--- NOTE | 2016-09-14 11:12 | PDOC ---
PROGRESS NOTES Chief Complaint Chief Complaint Scrotal cellulitis open wound ASSESSMENT AND PLAN: 1. 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 on zosyn and vanco, diflucan, cont wound care. appreciate Dr Arellano's input 2. 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 left arm AVF 3weeks, with steal syndrome, better with AVF ligation 09/09 4. hypokalemia: resolved 5. Anemia: CKD induced. in EPO w/HD 6. DM2, mod control 7. CAD: S/P CABG in 2004. no acute issues. cont home meds 8. pAFib: rate controlled on low dose carvedilol only 9. OAC: on eliquis 10. dementia, mild 11. delirium, likely 2/2 uremia with sepsis - resolved 12. abn CT findings: 2 pancreatic lesions, adrenal lesion 3.8cm, stable. CA19.[address] with contrast (pancreas protocol), coordinate with HD, if pt wishes further investigation 13. Palliative consult History of Present Illness History of Present Illness in HD, lethargic. depressed Vitals Vitals Vital Signs Date Time Temp Pulse Resp B/P Pulse Ox O2 Delivery O2 Flow Rate FiO2 09/14/16 08:40 20 Room Air 09/14/16 08:00 70 149/62 09/14/16 07:00 97.4 96 97.4 09/13/16 20:23 2.0 Physical Exam General: Cooperative, No acute distress, Other (lethargic, depressed) Heart: No murmurs, Other (irreg, irreg) Lungs: Clear Abdomen: Normal bowel sounds, Soft, No tenderness Extremities: No cyanosis, Other (tr edema) Labs LABS Laboratory Tests Test 09/13/16 11:59 09/13/16 16:54 09/13/16 21:04 09/14/16 06:00 Glucose (Fingerstick) 154mg/dL (70-99) 202mg/dL (70-99) 222mg/dL (70-99) White Blood Count 8.0x10^3/uL (4.0-11.0) Red Blood Count 2.54x10^6/uL (4.30-5.70) Hemoglobin 8.2g/dL (13.0-17.5) Hematocrit 24.7% (39.0-53.0) Mean Corpuscular Volume 97fL (79-100) Mean Corpuscular Hemoglobin 32pg (25-35) Mean Corpuscular Hemoglobin Concent 33g/dL (31-37) Red Cell Distribution Width 16.9% (11.5-14.5) Platelet Count 254x10^3/uL (140-400) Neutrophils (%) (Auto) 73% (31-73) Lymphocytes (%) (Auto) 13% (24-48) Monocytes (%) (Auto) 8% (0-9) Eosinophils (%) (Auto) 5% (0-3) Basophils (%) (Auto) 1% (0-3) Neutrophils # (Auto) 5.8x10^3uL (1.8-7.7) Lymphocytes # (Auto) 1.0x10^3/uL (1.0-4.8) Monocytes # (Auto) 0.6x10^3/uL (0.0-1.1) Eosinophils # (Auto) 0.4x10^3/uL (0.0-0.7) Basophils # (Auto) 0.1x10^3/uL (0.0-0.2) Sodium Level 140mmol/L (136-145) Potassium Level 4.3mmol/L (3.5-5.1) Chloride Level 95mmol/L (98-107) Carbon Dioxide Level 22mmol/L (21-32) Anion Gap 23 (6-14) Blood Urea Nitrogen 46mg/dL (8-26) Creatinine 5.1mg/dL (0.7-1.3) Estimated GFR (Cockcroft-Gault) 10.8 Glucose Level 146mg/dL (70-99) Calcium Level 8.9mg/dL (8.5-10.1) Phosphorus Level 2.8mg/dL (2.6-4.7) Magnesium Level 2.1mg/dL (1.8-2.4) Albumin 2.2g/dL (3.4-5.0) Test 09/14/16 07:29 Glucose (Fingerstick) 132mg/dL (70-99) LING COOPER MD Sep 14, 2016 11:12
[2016-09-14] MEDS: VANCOMYCIN PER PHARMACY MC PRN (12:04)
--- NOTE | 2016-09-14 12:12 | PDOC ---
Infectious Disease Note Subjective Subjective In HD. Min responsive ROS ROS GEN: Denies fevers, chills, sweats HEENT: Denies blurred vision, sore throat CV: Denies chest pain RESP: Denies shortness of air, cough GI: Denies n/v/d NEURO: Denies confusion, dizziness MSK: Denies weakness, joint pain/swelling Vital Sign Vital Signs Vital Signs Date Time Temp Pulse Resp B/P Pulse Ox O2 Delivery O2 Flow Rate FiO2 09/14/16 11:00 108 141/67 99 Room Air 09/14/16 09:10 22 09/14/16 07:00 97.4 97.4 09/13/16 20:23 2.0 Physical Exam PHYSICAL EXAM GENERAL: Appears comfortable but min responsive HEENT: Oral cavity dry LUNGS: Clear HEART: S1S2, no gallop, no murmur ABD: Obese, hyperactive BS, soft, no grimace to palpation. PDC intact. : Posterior penile and scrotal wounds, + thick exudate/slough, scrotal mild/ mod excoriation - better EXT: No edema, no cyanosis. LUE AV fistula, sutures intact, less erythema. 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 clean Labs Lab Laboratory Tests Test 09/13/16 16:54 09/13/16 21:04 09/14/16 06:00 09/14/16 07:29 Glucose (Fingerstick) 202mg/dL (70-99) 222mg/dL (70-99) 132mg/dL (70-99) White Blood Count 8.0x10^3/uL (4.0-11.0) Red Blood Count 2.54x10^6/uL (4.30-5.70) Hemoglobin 8.2g/dL (13.0-17.5) Hematocrit 24.7% (39.0-53.0) Mean Corpuscular Volume 97fL (79-100) Mean Corpuscular Hemoglobin 32pg (25-35) Mean Corpuscular Hemoglobin Concent 33g/dL (31-37) Red Cell Distribution Width 16.9% (11.5-14.5) Platelet Count 254x10^3/uL (140-400) Neutrophils (%) (Auto) 73% (31-73) Lymphocytes (%) (Auto) 13% (24-48) Monocytes (%) (Auto) 8% (0-9) Eosinophils (%) (Auto) 5% (0-3) Basophils (%) (Auto) 1% (0-3) Neutrophils # (Auto) 5.8x10^3uL (1.8-7.7) Lymphocytes # (Auto) 1.0x10^3/uL (1.0-4.8) Monocytes # (Auto) 0.6x10^3/uL (0.0-1.1) Eosinophils # (Auto) 0.4x10^3/uL (0.0-0.7) Basophils # (Auto) 0.1x10^3/uL (0.0-0.2) Sodium Level 140mmol/L (136-145) Potassium Level 4.3mmol/L (3.5-5.1) Chloride Level 95mmol/L (98-107) Carbon Dioxide Level 22mmol/L (21-32) Anion Gap 23 (6-14) Blood Urea Nitrogen 46mg/dL (8-26) Creatinine 5.1mg/dL (0.7-1.3) Estimated GFR (Cockcroft-Gault) 10.8 Glucose Level 146mg/dL (70-99) Calcium Level 8.9mg/dL (8.5-10.1) Phosphorus Level 2.8mg/dL (2.6-4.7) Magnesium Level 2.1mg/dL (1.8-2.4) Albumin 2.2g/dL (3.4-5.0) Objective Assessment Scrotal wound Scrotal cellulitis - better S/p LUE Ligation 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 Pancreatic lesions on CT Plan Plan of Care Cont Vanc, Zosyn & Fluconazole. wean soon Monitor labs/wounds NURIA VELEZ MD Sep 14, 2016 12:12
--- NOTE | 2016-09-14 12:19 | PDOC ---
Objective: Objective: Per HD RN - has been restless, tachycardic, expressed to palliative care he was "done." Vital Signs: Vital Signs Date Time Temp Pulse Resp B/P Pulse Ox O2 Delivery O2 Flow Rate FiO2 09/14/16 11:00 108 141/67 99 Room Air 09/14/16 09:10 22 09/14/16 07:00 97.4 97.4 09/13/16 20:23 2.0 Labs: Laboratory Tests Test 09/13/16 16:54 09/13/16 21:04 09/14/16 06:00 09/14/16 07:29 Glucose (Fingerstick) 202mg/dL 222mg/dL 132mg/dL White Blood Count 8.0x10^3/uL Red Blood Count 2.54x10^6/uL Hemoglobin 8.2g/dL Hematocrit 24.7% Mean Corpuscular Volume 97fL Mean Corpuscular Hemoglobin 32pg Mean Corpuscular Hemoglobin Concent 33g/dL Red Cell Distribution Width 16.9% Platelet Count 254x10^3/uL Neutrophils (%) (Auto) 73% Lymphocytes (%) (Auto) 13% Monocytes (%) (Auto) 8% Eosinophils (%) (Auto) 5% Basophils (%) (Auto) 1% Neutrophils # (Auto) 5.8x10^3uL Lymphocytes # (Auto) 1.0x10^3/uL Monocytes # (Auto) 0.6x10^3/uL Eosinophils # (Auto) 0.4x10^3/uL Basophils # (Auto) 0.1x10^3/uL Sodium Level 140mmol/L Potassium Level 4.3mmol/L Chloride Level 95mmol/L Carbon Dioxide Level 22mmol/L Anion Gap 23 Blood Urea Nitrogen 46mg/dL Creatinine 5.1mg/dL Estimated GFR (Cockcroft-Gault) 10.8 Glucose Level 146mg/dL Calcium Level 8.9mg/dL Phosphorus Level 2.8mg/dL Magnesium Level 2.1mg/dL Albumin 2.2g/dL PE: GEN: dialyzing HEART: tachy ABD: BS+, soft, does not appear tender NEURO/PSYCH: does not awaken for exam A/P: Pancreatic lesions -punctate calcifications within the pancreas (?sequela of chronic pancreatitis) , 2cm and 1.9cm isodense - hypodense lesions within the pancreas, difficult to characterize on noncontrast CT -CA19-9 WNL, family previously interested in MRI Scrotal wound/cellulitis, RLE wound/calciphylaxis, CKD on HD, DM -ID, renal, urology following -- Other per Dr. Llanes. ENRIQUE HELM Sep 14, 2016 12:19
[2016-09-14] MEDS ORDERED: VANCOMYCIN 500 MG in IV NORMAL SALINE 100ML 100 ML IV ONE (13:00)
--- NOTE | 2016-09-14 13:45 | PDOC ---
Provider Note Provider Note UROLOGY: Patient re-examined today, currently undergoing hemodialysis lethargic Patient has exudate on penile lesion mid-shaft ventral aspect of penis and on scrotal lesion think he might benefit from debridement, will discuss with family, will also see if the wound clinic thinks he might benefit from hyperbaric oxygen treatment. DANO HORNE DO Sep 14, 2016 13:45
--- NOTE | 2016-09-14 14:38 | PDOC2 ---
PALLIATIVE CARE Palliative Care Note Palliative Care Consult requested to address goals of care. Diagnosis: Scrotal/penile lesion; ESRD on hemodialysis;DM2; CAD s/pCAD in 2005 ; at fib, dementia--mild; delirium ; pancreatic lesions/adrenal lesions, \\ Met with family : Antoine Fang Karen, David, Steven, Linda: Ja per phone. Reviewed medical condition as above. Patient lived at home. Required 124/7 care from family. Family has seen decline in last 3 weeks. poor appetite. Labs reviewed. Family wants more information about wound care and infectious disease input before making any decisions. Not sure if patient has Advanced Directive. Family will look for copy. Patient had told family that he wanted full care. Shared with family, patient is saying he is tired of "doing all this" Family concerned patient is not receiving adequate pain management. Would like to give patient opportunity to express his wishes to them. Family would like to talk to Infectious disease and wound care physicians. Dr Arellano joined family meeting briefly. Discussed wound debridement. Plan: Full Aggressive Care. Full Code. [id number]; Spoke with wound care staff. Physician is available to speak with family at [phone]. HUSSEIN OSCAR Sep 14, 2016 14:37
[2016-09-14 15:00] VITALS: BP 145/79
[2016-09-14] MEDS: SODIUM THIOSULFATE IV SCH (16:00)
[2016-09-14] MEDS: NORMAL SALINE IV SCH (16:00)
--- NOTE | 2016-09-14 17:50 | PDOC ---
Provider Note Provider Note Urology: Family was asked if they would give consent for surgical debridement of penile/ scrotal wound and perhaps Hyperbaric Oxygen therapy. They responded that they were agreeable to Hyperbaric oxygen tx, but no surgical debridement with anesthesia, feeling that might increase his pain and discomfort. Consult placed to Hyperbaric Oxygen therapist. I also think some "wet to dry" saline or betadine dressings 4by4 changed twice daily might remove some of the exudate on the surface of the wounds. DANO HORNE DO Sep 14, 2016 17:50
[2016-09-14 19:00] VITALS: BP 133/50
[2016-09-14] MEDS: ATORVASTATIN CALCIUM 40 MG TABLET. PO SCH (21:00)
[2016-09-14] MEDS: INSULIN DETEMIR 300 UNITS/3 ML INSULN.PEN. SQ SCH (21:55)
[2016-09-14 23:37] VITALS: BP 146/78
--- NOTE | 2016-09-14 23:55 | PDOC4 ---
PROCEDURE Procedure RENAL DIALYSIS / STEVE HD done F 180/ HCO3 / 3 K Qb 450 Qd 600 UF 1-2 kg No complications. Well tolerated. JACKIE WILSON MD Sep 14, 2016 23:55
[2016-09-15] MEDS: PIPERACILLIN/TAZOBACTAM 2.25 GM in IV NORMAL SALINE 50ML 50 ML IV SCH ×3 (05:24→21:23)
[2016-09-15] MEDS: MORPHINE SULFATE 2 MG/ML DISP.SYRIN. IV PRN ×2 (05:31→08:51)
[2016-09-15 07:00] VITALS: BP 145/77
[2016-09-15] MEDS: PANTOPRAZOLE 40 MG TABLET.DR. PO SCH (07:30)
[2016-09-15] MEDS: INSULIN ASPART 300 UNITS/3 ML INSULN.PEN SQ SCH ×7 (07:30→21:08)
[2016-09-15] MEDS: CARVEDILOL 3.125 MG TABLET. PO SCH ×2 (08:00→17:00)
[2016-09-15] MEDS: SEVELAMER CARBONATE 800 MG TABLET. PO SCH ×3 (08:00→17:00)
--- NOTE | 2016-09-15 08:11 | PDOC2 ---
CONSULT Date of Consult Date of Consult DATE: 09/15/16 TIME: 07:51 Reason for Consult Reason for Consult: Scrotal wounds Referring Physician Referring Physician: Dr. Arellano Identification/Chief Complaint Chief Complaint Scrotal wounds of long-standing duration Source Source: Chart review (also multiple family members present and history is obtained from them.) History of Present Illness Reason for Visit: This is an 85-year-old patient with history of relatively chronic scrotal wounds receiving consultation for wound care and applicability to hyperbaric oxygen therapy. History is primarily obtained from family members. Patient and family have been dealing with scrotal and penile shaft wound for several weeks now. They have received care at another facility wound care center that has included lidocaine for pain and bedside debridements. No specific wound dressing appears to have been placed at the time of today's consultation. Family reports that the patient is constantly manipulating the wound site and dressings and this makes dressing placement problematic. 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 He underwent biopsy earlier to confirm the diagnoses. The patient's care is complicated by multiple comorbidities and significant concern for ongoing quality of life. Blood culture was noted in the chart demonstrating no growth. Wound culture was not identified. 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 He also has dialysis fistula placed in the left upper extremity.) Family History Family History: Cancer, Diabetes, Hypertension, Stroke Social History Quit ALCOHOL: rare Drugs: None Lives: with Family Domestic Violence: Neg Current Problem List Problem List Problems Medical Problems: (1) Open wound of scrotum Status: Acute Current Medications Current Medications Current Medications Meropenem/Sodium Chloride (Merrem/Iv Sodium Chloride 0.9% 100ml) 100 ml @ 200 mls/hr Q8HRS IV ; Start 09/07/16 at 22:00; Status UNV Vancomycin HCl 1 each 1 each PRN DAILY PRN MC SEE COMMENTS Last administered on 09/14/16 12:04; Start 09/07/16 at 20:45 Sodium Chloride (Iv Sodium Chloride 0.9% 500ml Bag) 500 ml @ 500 mls/hr 1X ONCE IV Last administered on 09/07/16 21:04; Start 09/07/16 at 21:00; Stop at 21:59; Status DC Hydromorphone HCl 1 mg 1 mg 1X ONCE IV Last administered on 09/07/16 20:59; Start 09/07/16 at 21:00; Stop 09/07/16 at 21:01; Status DC Meropenem 500 mg/ Sodium Chloride 50 ml @ 100 mls/hr QHS IV Last administered on 09/07/16 21:05; Start 09/07/16 at 21:00; Stop 09/08/16 at 07:59; Status DC Vancomycin HCl/ Sodium Chloride (Iv Sodium Chloride 0.9% 500ml Bag) 500 ml @ 250 mls/hr 1X ONCE IV Last administered on 09/07/16 22:07; Start 09/07/16 at 21:30; Stop 09/07/16 at 23:29; Status DC Ondansetron HCl (Zofran) 4 mg PRN Q8HRS PRN IV NAUSEA/VOMITING Last administered on 09/07/16 22:43; Start 09/07/16 at 22:00; Stop 09/08/16 at 21:59 ; Status DC Morphine Sulfate 4 mg 4 mg PRN Q2HR PRN IV SEVERE PAIN Last administered on 21:12; Start 09/07/16 at 22:00; Stop 09/08/16 at 21:59; Status DC Sodium Chloride (Iv Sodium Chloride 0.9% 1000ml Bag) 1,000 ml @ 75 mls/hr [id number] IV Last administered on 09/08/16 12:56; Start 09/07/16 at 21:52; Stop 09/08/16 at 21:51; Status DC Insulin Aspart (Novolog) 0-7 UNITS TIDWMEALS SQ ; Start 09/08/16 at 08:00; Stop 09/08/16 at 08:00; Status DC Dextrose (Dextrose 50%-Water Syringe) 12.5 gm PRN Q15MIN PRN IV SEE COMMENTS Last administered on 09/08/16 21:03; Start 09/07/16 at 22:30 Allopurinol (Zyloprim) 100 mg DAILY PO Last administered on 09/12/16 13:11; Start 09/08/16 at 09:00 Apixaban (Eliquis) 2.5 mg DAILY PO Last administered on 09/08/16 07:59; Start 09/08/16 at 09:00; Stop 09/08/16 at 10:43; Status DC Atorvastatin Calcium (Lipitor) 40 mg QHS PO Last administered on 09/11/16 20: 55; Start 09/08/16 at 21:00 Carvedilol (Coreg) 3.125 mg BIDWMEALS PO Last administered on 09/10/16 18:25; Start 09/08/16 at 08:00 Cinacalcet (Sensipar) 30 mg DAILY PO Last administered on 09/12/16 13:11; Start 09/08/16 at 09:00 Glimepiride (Amaryl) 4 mg DAILY PO Last administered on 09/08/16 07:59; Start 09/08/16 at 09:00; Stop 09/09/16 at 13:46; Status DC Acetaminophen/ Hydrocodone Bitart (Lortab 5/325) 1 tab PRN Q6HRS PRN PO SEVERE PAIN Last administered on 09/09/16 06:16; Start 09/07/16 at 22:30; Stop at 14:14; Status DC Polyethylene Glycol (miraLAX PACKET) 17 gm PRN DAILY PRN PO CONSTIPATION; Start 09/07/16 at 22:30 Sevelamer Carbonate (Renvela) 2.4 gm TIDWMEALS PO Last administered on 07:59; Start 09/08/16 at 08:00; Stop 09/08/16 at 12:01; Status DC Vitamin A/Vitamin D (Vitamin A & D Ointment) 1 katie TID TP Last administered on 09/13/16 14:15; Start 09/08/16 at 09:00 Docusate Sodium (Colace) 100 mg PRN DAILY PRN PO CONSTIPATION; Start 09/07/16 at 22:45 Docusate Sodium (Colace) 100 mg DAILY PO Last administered on 09/12/16 13:10; Start 09/08/16 at 09:00 Potassium Chloride (Klor-Con) 20 meq 1X ONCE PO Last administered on 01:38; Start 09/07/16 at 23:00; Stop 09/07/16 at 23:01; Status DC Insulin Aspart (Novolog) 0-7 UNITS QIDACHS SQ Last administered on 09/13/16 17 :53; Start 09/07/16 at 22:45 Info (Anti-Coagulation Monitoring By Pharmacy) 1 each PRN DAILY PRN MC SEE COMMENTS Last administered on 09/08/16 02:30; Start 09/07/16 at 23:45 Vancomycin HCl 1 each 1 each 1X ONCE MC ; Start 09/11/16 at 21:30; Stop at 21:30; Status DC Vancomycin HCl 1.5 gm/Sodium Chloride 500 ml @ 250 mls/hr Q48H IV ; Start 09/09 at 22:00; Stop 09/09/16 at 22:00; Status DC Piperacillin Sod/ Tazobactam Sod/ Sodium Chloride (Zosyn/Iv Sodium Chloride 0.9 % 50ml) 50 ml @ 100 mls/hr Q8HRS IV Last administered on 09/10/16 06:11; Start 09/08/16 at 08:30; Stop 09/10/16 at 09:00; Status DC Fluconazole (Diflucan) 100 mg DAILY PO Last administered on 09/12/16 13:11; Start 09/08/16 at 09:00 Darbepoetin Lasha (Aranesp) 60 mcg WEEKLYHS SQ Last administered on 09/08/16 21 :06; Start 09/08/16 at 21:00 Apixaban (Eliquis) 2.5 mg BID PO Last administered on 09/13/16 19:51; Start at 21:00 Vancomycin HCl 1 each 1X ONCE MC Last administered on 09/09/16 06:00; Start 09/09/16 at 06:00; Stop 09/09/16 at 06:01; Status DC Sevelamer Carbonate (Renvela) 2,400 mg TIDWMEALS PO Last administered on 12:20; Start 09/08/16 at 12:00 Insulin Aspart (Novolog) 8 units TIDAC SQ Last administered on 09/10/16 08:41 ; Start 09/08/16 at 12:00; Stop 09/10/16 at 10:17; Status DC Lorazepam (Ativan) 0.5 mg PRN Q6HRS PRN PO ANXIETY / AGITATION Last administered on 09/11/16t 11:45; Start 09/08/16 at 13:00 Fentanyl Citrate (Fentanyl 2ml Vial) 25 mcg PRN Q5MIN PRN IV MILD PAIN; Start 09/09/16 at 07:00; Stop 09/10/16 at 06:59; Status DC Fentanyl Citrate (Fentanyl 2ml Vial) 50 mcg PRN Q5MIN PRN IV MODERATE PAIN; Start 09/09/16 at 07:00; Stop 09/10/16 at 06:59; Status DC Morphine Sulfate 1 mg PRN Q10MIN PRN IV SEVERE PAIN; Start 09/09/16 at 07:00; Stop 09/10/16 at 06:59; Status DC Lidocaine HCl 2 ml PRN 1X PRN ID PRIOR TO IV START; Start 09/09/16 at 07:00; Stop 09/10/16 at 06:59; Status DC Hydromorphone HCl (Dilaudid) 0.5 mg PRN Q10MIN PRN IV SEV PAIN, Second choice; Start 09/09/16 at 07:00; Stop 09/10/16 at 06:59; Status DC Prochlorperazine Edisylate 5 mg 5 mg PACU PRN PRN IV NAUSEA, MRX1; Start at 07:00; Stop 09/10/16 at 06:59; Status DC Sodium Chloride (Iv Sodium Chloride 0.9% 1000ml Bag) 1,000 ml @ 0 mls/hr Q0M IV ; Start 09/09/16 at 12:00; Stop 09/10/16 at 10:51; Status DC Morphine Sulfate 4 mg PRN Q2HR PRN IV SEVERE PAIN Last administered on t 10:43; Start 09/09/16 at 01:00; Stop 09/11/16 at 15:23; Status DC Lidocaine HCl 30 ml STK-MED ONCE .ROUTE ; Start 09/09/16 at 07:12; Stop at 07:13; Status DC Cellulose 1 each STK-MED ONCE .ROUTE ; Start 09/09/16 at 07:12; Stop 09/09/16 at 07:13; Status DC Papaverine HCl 60 mg 60 mg STK-MED ONCE .ROUTE ; Start 09/09/16 at 07:13; Stop 09/09/16 at 07:14; Status DC Sodium Chloride 1,000 ml @ 1,000 mls/hr Q1H PRN IV hypotension; Start 09/09/16 at 07:30; Stop 09/09/16 at 13:29; Status DC Albumin Human (Albuminar) 200 ml @ 200 mls/hr 1X PRN PRN IV Hypotension Last administered on 09/09/16t 09:37; Start 09/09/16 at 07:30; Stop 09/09/16 at 13:29 ; Status DC Acetaminophen (Tylenol) 500 mg 1X PRN PRN PO MILD PAIN / TEMP; Start 09/09/16 at 07:30; Stop 09/10/16 at 07:29; Status DC Diphenhydramine HCl (Benadryl) 25 mg 1X PRN PRN IV ITCHING; Start 09/09/16 at 07:30; Stop 09/10/16 at 07:29; Status DC Diphenhydramine HCl (Benadryl) 25 mg 1X PRN PRN IV ITCHING; Start 09/09/16 at 07:30; Stop 09/10/16 at 07:29; Status DC Labetalol HCl (Normodyne) 10 mg PRN Q1HR PRN IVP SBP > 180; Start 09/09/16 at 07:30; Stop 09/10/16 at 07:29; Status DC Clonidine HCl 0.1 mg 0.1 mg 1X PRN PRN PO SBP > 180; Start 09/09/16 at 07:30; Stop 09/10/16 at 07:29; Status DC Sodium Chloride (Iv Sodium Chloride 0.9% 1000ml Bag) 1,000 ml @ 400 mls/hr Q2H30M PRN IV PATENCY; Start 09/09/16 at 07:30; Stop 09/09/16 at 19:29; Status DC Info 1 each 1 each PRN DAILY PRN MC SEE COMMENTS; Start 09/09/16 at 07:30; Stop 09/14/16 at 10:15; Status DC Heparin Sodium (Porcine) 5000 unit/Sodium Chloride 505 ml @ 505 mls/hr 1X PERIOP ONCE IRR ; Start 09/09/16 at 09:00; Stop 09/09/16 at 09:59; Status DC Cefazolin Sodium 1 gm/Sodium Chloride 500 ml @ 500 mls/hr 1X PERIOP ONCE IRR ; Start 09/09/16 at 09:00; Stop 09/09/16 at 09:59; Status DC Cefazolin Sodium (Ancef 1gm Ivpb For Omni) 0 ml @ As Directed STK-MED ONCE IV ; Start 09/09/16 at 13:23; Stop 09/09/16 at 13:24; Status DC Acetaminophen/ Hydrocodone Bitart (Lortab 5/325) 1 tab PRN Q4HRS PRN PO PAIN; Start 09/09/16 at 14:15; Stop 09/11/16 at 11:52; Status DC Acetaminophen/ Hydrocodone Bitart (Lortab 5/325) 2 tab PRN Q4HRS PRN PO PAIN Last administered on 09/11/16t 04:49; Start 09/09/16 at 14:15; Stop 09/11/16 at 11:52; Status DC Midazolam HCl (Versed) 2 mg STK-MED ONCE .ROUTE ; Start 09/09/16 at 14:06; Stop 09/09/16 at 14:07; Status DC Fentanyl Citrate 100 mcg 100 mcg STK-MED ONCE .ROUTE ; Start 09/09/16 at 14:06; Stop 09/09/16 at 14:07; Status DC Vancomycin HCl/ Sodium Chloride (Iv Sodium Chloride 0.9% 100ml) 100 ml @ 100 mls/hr QMWF IV Last administered on 09/09/16 17:36; Start 09/09/16 at 16:00; Stop 09/11/16 at 15:32; Status DC Lidocaine HCl 20 ml STK-MED ONCE .ROUTE ; Start 09/09/16 at 14:11; Stop at 14:12; Status DC Lidocaine HCl 20 ml STK-MED ONCE .ROUTE ; Start 09/09/16 at 14:11; Stop at 14:12; Status DC Cellulose 1 each STK-MED ONCE .ROUTE ; Start 09/09/16 at 14:12; Stop 09/09/16 at 14:13; Status DC Papaverine HCl 60 mg 60 mg STK-MED ONCE .ROUTE ; Start 09/09/16 at 14:12; Stop 09/09/16 at 14:13; Status DC Propofol (Diprivan) 20 ml @ As Directed STK-MED ONCE IV ; Start 09/09/16 at 14: 51; Stop 09/09/16 at 14:52; Status DC Amoxicillin/ Clavulanate Potassium (Augmentin 500/ 125mg) 1 tab DAILY PO Last administered on 09/10/16 10:43; Start 09/10/16 at 10:00; Stop 09/11/16 at 10:47 ; Status DC Insulin Aspart (Novolog) 5 units TIDAC SQ Last administered on 09/13/16 17:51 ; Start 09/10/16 at 11:30 Insulin Detemir (Levemir) 10 units QHS SQ Last administered on 09/10/16 21:46 ; Start 09/10/16 at 21:00; Stop 09/11/16 at 10:42; Status DC Sodium Thiosulfate 25 gm 25 gm 3X/WEEK IV ; Start 09/11/16 at 09:00; Status UNV Magnesium Sulfate/ Dextrose 50 ml @ 25 mls/hr PRN DAILY PRN IV for Mag < 1.7 on am labs; Start 09/10/16 at 10:45 Sodium Thiosulfate 25 gm/ Sodium Chloride 100 ml @ 100 mls/hr 3X/WEEK@16 IV Last administered on 09/14/16 16:00; Start 09/11/16 at 16:00 Amino Acids/ Glycerin/ Electrolytes (Procalamine) 1,000 ml @ 80 mls/hr [id number] IV Last administered on 09/14/16 17:23; Start 09/10/16 at 11:30 Fentanyl Citrate (Fentanyl 2ml Vial) 25 mcg PRN Q2HR PRN IV PAIN Last administered on 09/13/16 17:02; Start 09/10/16 at 13:00; Stop 09/13/16 at 18:42 ; Status DC Albuterol Sulfate (Ventolin Neb Soln) 2.5 mg PRN Q4HRS PRN NEB SHORTNESS OF BREATH Last administered on 09/12/16 08:56; Start 09/10/16 at 13:30 Tramadol HCl (Ultram) 50 mg PRN Q6HRS PRN PO PAIN Last administered on 08:39; Start 09/10/16 at 13:45 Ondansetron HCl (Zofran) 4 mg PRN Q6HRS PRN IV NAUSEA/VOMITING Last administered on 09/11/16 08:39; Start 09/10/16 at 19:15 Calcium Carbonate/ Glycine (Tums) 500 mg TID PRN PO INDIGESTION; Start at 19:15 Pantoprazole Sodium (Protonix) 40 mg DAILYAC PO Last administered on 09/11/16 08:38; Start 09/10/16 at 20:00 Prochlorperazine Edisylate (Compazine) 10 mg PRN Q6HRS PRN IV NAUSEA/VOMITING Last administered on 09/11/16 10:49; Start 09/11/16 at 10:30 Insulin Detemir (Levemir) 15 units QHS SQ Last administered on 09/14/16 21:55 ; Start 09/11/16 at 21:00 Metoclopramide HCl 5 mg 5 mg PRN Q6HRS PRN IV NAUSEA/VOMITING Last administered on 09/11/16 20:55; Start 09/11/16 at 10:45 Piperacillin Sod/ Tazobactam Sod/ Sodium Chloride (Zosyn/Iv Sodium Chloride 0.9 % 50ml) 50 ml @ 100 mls/hr Q8HRS IV Last administered on 09/15/16 05:24; Start 09/11/16 at 14:00 Oxycodone/ Acetaminophen 1 tab 1 tab PRN Q4HRS PRN PO PAIN Last administered on 09/13/16 19:51; Start 09/11/16 at 12:00 Sodium Thiosulfate/ Sodium Chloride (Sodium Thiosulfate/Iv Sodium Chloride 0.9% 100ml) 100 ml @ 100 mls/hr 1X ONCE IV Last administered on 09/12/16 16:00; Start 09/12/16 at 16:00; Stop 09/12/16 at 16:59; Status DC Lorazepam (Ativan) 1 mg 1X ONCE IV ; Start 09/11/16 at 18:00; Stop 09/11/16 at 18:01; Status DC Haloperidol Lactate (Haldol) 2 mg PRN Q24HRS PRN IVP AGITATION Last administered on 09/14/16 11:04; Start 09/11/16 at 18:00; Stop 09/14/16 at 15:06 ; Status DC Lorazepam 1 mg 1 mg 1X ONCE IV Last administered on 09/12/16 03:14; Start at 01:00; Stop 09/12/16 at 01:01; Status DC Sodium Chloride (Iv Sodium Chloride 0.9% 1000ml Bag) 1,000 ml @ 1,000 mls/hr Q1H PRN IV hypotension; Start 09/12/16 at 08:00; Stop 09/12/16 at 13:59; Status DC Diphenhydramine HCl 50 mg 50 mg 1X PRN PRN IV ITCHING Last administered on 09/12 09:06; Start 09/12/16 at 08:45; Stop 09/12/16 at 16:00; Status DC Sodium Chloride (Iv Sodium Chloride 0.9% 1000ml Bag) 1,000 ml @ 400 mls/hr Q2H30M PRN IV PATENCY; Start 09/12/16 at 08:00; Stop 09/12/16 at 19:59; Status DC Info (PHARMACY MONITORING -- do not chart) 1 each PRN DAILY PRN MC SEE COMMENTS ; Start 09/12/16 at 08:45; Status UNV Lorazepam 0.5 mg 0.5 mg PRN Q6HRS PRN IV ANXIETY / AGITATION Last administered on 09/14/16 23:37; Start 09/12/16 at 11:00 Vancomycin HCl/ Sodium Chloride (Iv Sodium Chloride 0.9% 100ml) 100 ml @ 100 mls/hr 1X ONCE IV Last administered on 09/12/16 14:40; Start 09/12/16 at 13: 00; Stop 09/12/16 at 13:59; Status DC Fentanyl Citrate (Fentanyl 2ml Vial) 50 mcg PRN Q2HR PRN IV PAIN; Start at 18:45 Morphine Sulfate 1 mg PRN Q2HR PRN IV PAIN Last administered on 09/15/16 05:31 ; Start 09/13/16 at 18:45 Lidocaine (Lidoderm) 1 patch DAILY TD ; Start 09/13/16 at 19:00; Stop 09/13/16 at 19:16; Status DC Lidocaine HCl 1 katie 1 katie TID TP Last administered on 09/14/16 21:00; Start at 21:00 Sodium Chloride (Iv Sodium Chloride 0.9% 1000ml Bag) 1,000 ml @ 1,000 mls/hr Q1H PRN IV hypotension; Start 09/14/16 at 10:06; Stop 09/14/16 at 16:05; Status DC Sodium Chloride (Normal Saline Flush) 10 ml 1X PRN PRN IV AP catheter pack; Start 09/14/16 at 10:15; Stop 09/15/16 at 10:14 Sodium Chloride 10 ml 10 ml 1X PRN PRN IV QUALITY IMPROVEMENT ANALYST catheter pack; Start 09/14/16 at 10:15; Stop 09/15/16 at 10:14 Sodium Chloride (Iv Sodium Chloride 0.9% 1000ml Bag) 1,000 ml @ 400 mls/hr Q2H30M PRN IV PATENCY; Start 09/14/16 at 10:06; Stop 09/14/16 at 22:05; Status DC Info 1 each 1 each PRN DAILY PRN MC SEE COMMENTS; Start 09/14/16 at 10:15 Vancomycin HCl 500 mg/Sodium Chloride 100 ml @ 100 mls/hr 1X ONCE IV Last administered on 09/14/16 15:30; Start 09/14/16 at 13:00; Stop 09/14/16 at 13:59 ; Status DC Vancomycin HCl/ Sodium Chloride (Iv Sodium Chloride 0.9% 100ml) 100 ml @ 100 mls/hr QMWF IV ; Start 09/16/16 at 16:00 Haloperidol Lactate (Haldol) 2 mg PRN Q6HRS PRN IVP AGITATION Last administered on 09/14/16 17:31; Start 09/14/16 at 18:00 Active Scripts Active Mupirocin Ointment (Mupirocin) 22 Gm Oint...g. 1 Katie TP TID Vitamin A & D Ointment (Vits A & D/White Pet/Lanolin) 56.7 Gm Oint...g. 1 Katie TP TID Diflucan (Fluconazole) 100 Mg Tablet 100 Mg PO DAILY Allopurinol 100 Mg Tablet 100 Mg PO DAILY Hydrocodone-Apap 5-325 (Hydrocodone Bit/Acetaminophen) 1 Each Tablet 1 Tab PO Q6HRS PRN Eliquis (Apixaban) 2.5 Mg Tablet 2.5 Mg PO DAILY Renvela (Sevelamer Carbonate) 2.4 Gm Powd.pack 2.4 Gm PO TIDWMEALS Miralax (Polyethylene Glycol 3350) 17 Gm Powd.pack 17 Gm PO PRN DAILY PRN Carvedilol 3.125 Mg Tablet 3.125 Mg PO BIDWMEALS Reported Sensipar (Cinacalcet Hcl) 30 Mg Tablet 1 Tab PO DAILY Glimepiride 2 Mg Tablet 4 Mg PO DAILY Novolog (Insulin Aspart) 100 Unit/1 Ml Cartridge 8 Unit SQ TIDAC Atorvastatin Calcium 40 Mg Tablet 1 Tab PO DAILY Allergies Allergies: Coded Allergies: No Known Medication Allergies (Verified Allergy, Unknown, 09/09/16) ROS General: YES: Appetite (generally considered poor) PSYCHOLOGICAL ROS: YES: Disorientation (we noted some concern for disorientation this morning. Family appears familiar with this.), Memory difficulties Gastrointestinal: Yes Nausea (episodic nausea is described by the family.) Neurological: Yes Other (there is been consideration for mild dementia diagnoses.) Physical Exam General: Other (patient awakens easy. He demonstrates modest disorientation on awakening. He does appear to follow commands to family's satisfaction.) HEENT: Atraumatic, PERRLA, EOMI Lungs: Clear to auscultation Heart: Normal S1, Normal S2 Abdomen: Soft Extremities: No edema, Other (bilateral distal necrotic areas compatible with calciphylaxis) Skin: Other (scrotal and proximal penile shaft wound demonstrating heavy slough. Underlying tissue was not observable. There is no significant induration at this time. The periwound does demonstrate modest erythema.) Neuro: Other (speech is slow) MUSCULOSKELETAL: Other (not examined) Vitals VITALS Vital Signs Date Time Temp Pulse Resp B/P Pulse Ox O2 Delivery O2 Flow Rate FiO2 09/15/16 05:31 20 94 Room Air 09/14/16 23:37 97.8 107 146/78 97.8 09/14/16 22:58 2.0 Labs Labs Laboratory Tests Test 09/13/16 11:59 09/13/16 16:54 09/13/16 21:04 09/14/16 06:00 Glucose (Fingerstick) 154mg/dL (70-99) 202mg/dL (70-99) 222mg/dL (70-99) White Blood Count 8.0x10^3/uL (4.0-11.0) Red Blood Count 2.54x10^6/uL (4.30-5.70) Hemoglobin 8.2g/dL (13.0-17.5) Hematocrit 24.7% (39.0-53.0) Mean Corpuscular Volume 97fL (79-100) Mean Corpuscular Hemoglobin 32pg (25-35) Mean Corpuscular Hemoglobin Concent 33g/dL (31-37) Red Cell Distribution Width 16.9% (11.5-14.5) Platelet Count 254x10^3/uL (140-400) Neutrophils (%) (Auto) 73% (31-73) Lymphocytes (%) (Auto) 13% (24-48) Monocytes (%) (Auto) 8% (0-9) Eosinophils (%) (Auto) 5% (0-3) Basophils (%) (Auto) 1% (0-3) Neutrophils # (Auto) 5.8x10^3uL (1.8-7.7) Lymphocytes # (Auto) 1.0x10^3/uL (1.0-4.8) Monocytes # (Auto) 0.6x10^3/uL (0.0-1.1) Eosinophils # (Auto) 0.4x10^3/uL (0.0-0.7) Basophils # (Auto) 0.1x10^3/uL (0.0-0.2) Sodium Level 140mmol/L (136-145) Potassium Level 4.3mmol/L (3.5-5.1) Chloride Level 95mmol/L (98-107) Carbon Dioxide Level 22mmol/L (21-32) Anion Gap 23 (6-14) Blood Urea Nitrogen 46mg/dL (8-26) Creatinine 5.1mg/dL (0.7-1.3) Estimated GFR (Cockcroft-Gault) 10.8 Glucose Level 146mg/dL (70-99) Calcium Level 8.9mg/dL (8.5-10.1) Phosphorus Level 2.8mg/dL (2.6-4.7) Magnesium Level 2.1mg/dL (1.8-2.4) Albumin 2.2g/dL (3.4-5.0) Test 09/14/16 07:29 09/14/16 17:24 09/14/16 20:50 Glucose (Fingerstick) 132mg/dL (70-99) 112mg/dL (70-99) 147mg/dL (70-99) Laboratory Tests Test 09/14/16 17:24 09/14/16 20:50 Glucose (Fingerstick) 112mg/dL (70-99) 147mg/dL (70-99) Assessment/Plan Assessment/Plan scrotal cellulitis with open wound to scrotum and penis. Recommendation is for surgical debridement with removal of slough and good wound culture of the true base of this cellulitic area. We'll make wound dressing recommendations to follow but if a good antibiofilm dressing can be utilized such as a cadexomer iodine then that would likely be most appropriate. Periwound moisture perhaps best treated with barrier cream at this time. Concerning is the patient's constant manipulation of the wound site and the ability to maintain any dressing. Certainly agree with ongoing antibiotic administration and antifungal. The role of hyperbaric oxygen in this particular case appears only applicable should evidence be demonstrated of anaerobic infection. It does not appear to be the case based on clinical findings. Hyperbaric oxygen therapy also not approved at this time for calciphylaxis although it has been described in the literature in small series with some success. We'll be happy to follow as an outpatient or post debridement to make further wound dressing recommendations. The patient's greatest impediments to healing are his significant comorbidities. Diabetes, end-stage renal disease and nutritional status will be significant impairments to healing. The family is trying to balance comfort care and appropriate wound therapy and a great deal of the discussion was directed to try to aid them in making this decision. At the conclusion of this discussion it did appear that family was agreeable to proceeding with surgical debridement. Calciphylaxis The lesions at this time her relatively modest. Firm necrotic tissue is evident at both lower extremity sites. If the disease process maintains itself at this limited distribution then would just recommend local skin care and possibly outpatient consideration for collagenase cream to the sites. If lesions become more extensive or pain significantly increased at the sites than likely the addition of sodium thiosulfate would be the most efficacious next stage. SHELBIE GOLDMAN DO Sep 15, 2016 08:11
[2016-09-15 08:36] LABS: ALBUMIN 2.3 g/dL (3.4-5.0); CREATININE 3.6 mg/dL (0.7-1.3); GFR 16.1; PHOSPHORUS 2.5 mg/dL (2.6-4.7); POTASSIUM 4.7 mmol/L (3.5-5.1)
[2016-09-15] MEDS: AMINO AC 3%/ELECTROLYTE/GLYCER 1,000 ML IV SCH ×2 (08:55→19:34)
[2016-09-15] MEDS: DOCUSATE SODIUM 100 MG CAPSULE. PO SCH (08:57)
[2016-09-15] MEDS: FLUCONAZOLE 100 MG TABLET. PO SCH (08:57)
[2016-09-15] MEDS: APIXABAN 2.5 MG TABLET. PO SCH ×2 (08:57→20:03)
[2016-09-15] MEDS: ALLOPURINOL 100 MG TABLET. PO SCH (08:58)
[2016-09-15] MEDS: CINACALCET HCL 30 MG TABLET PO SCH (08:58)
[2016-09-15] MEDS: LIDOCAINE 2% TOPICAL JELLY 30GM TUBE. TP SCH ×3 (08:58→21:23)
[2016-09-15] MEDS: VITS A & D/LANOLIN TOPICAL OINTMENT 56GM TUBE. TP SCH ×3 (08:58→21:24)
--- NOTE | 2016-09-15 09:28 | PDOC ---
Infectious Disease Note Subjective Subjective More alert but still sluggish ROS ROS Difficult to understand Vital Sign Vital Signs Vital Signs Date Time Temp Pulse Resp B/P Pulse Ox O2 Delivery O2 Flow Rate FiO2 09/15/16 08:56 Room Air 09/15/16 07:00 98.2 116 22 145/77 94 98.2 09/14/16 22:58 2.0 Physical Exam PHYSICAL EXAM GENERAL: Appears comfortable but min responsive HEENT: Oral cavity dry LUNGS: Clear HEART: S1S2, no gallop, no murmur ABD: Obese, hyperactive BS, soft, no grimace to palpation. PDC intact. : Posterior penile and scrotal wounds, + thick exudate/slough, scrotal mild/ mod excoriation - better EXT: No edema, no cyanosis. LUE AV fistula, sutures intact, less erythema. BLE bandage intact BIOMETRIC SCREENER: Sleeping SKIN: No rash IV: ok HDC. clean Labs Lab Laboratory Tests Test 09/14/16 17:24 09/14/16 20:50 09/15/16 08:10 09/15/16 08:28 Glucose (Fingerstick) 112mg/dL (70-99) 147mg/dL (70-99) 157mg/dL (70-99) Sodium Level 146mmol/L (136-145) Potassium Level 4.7mmol/L (3.5-5.1) Chloride Level 100mmol/L (98-107) Carbon Dioxide Level 21mmol/L (21-32) Anion Gap 25 (6-14) Blood Urea Nitrogen 29mg/dL (8-26) Creatinine 3.6mg/dL (0.7-1.3) Estimated GFR (Cockcroft-Gault) 16.1 Glucose Level 154mg/dL (70-99) Calcium Level 9.0mg/dL (8.5-10.1) Phosphorus Level 2.5mg/dL (2.6-4.7) Magnesium Level 2.1mg/dL (1.8-2.4) Albumin 2.3g/dL (3.4-5.0) Objective Assessment Scrotal wound - would benefit from I and D Scrotal cellulitis - better S/p LUE Ligation 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 Pancreatic lesions on CT Plan Plan of Care Cont Vanc, Zosyn & Fluconazole. wean soon to po Await debridement Monitor labs/wounds D/w family NURIA VELEZ MD Sep 15, 2016 09:28
--- NOTE | 2016-09-15 09:54 | PDOC2 ---
PALLIATIVE CARE Palliative Care Note Palliative Care Patient drowsy. Family states patient was more alert throughout the night and does want I&D of scrotal lesions. This was discussed with this am Copy of Advanced Directive placed on record. Family wants to continue with aggressive care but understands that if patient does not benefit from treatments and quality of life declines they would advocate for comfort care. Discussed pain management with Dr. Reynoso. Post-op patient may benefit from low dose long acting such as Fentanyl patch. HUSSEIN OSCAR Sep 15, 2016 09:54
--- NOTE | 2016-09-15 10:09 | PDOC ---
PROGRESS NOTES Chief Complaint Chief Complaint Scrotal cellulitis open wound ASSESSMENT AND PLAN: 1. 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 on zosyn and vanco, diflucan. wound debridement in OR by Dr Arellano today 2. Pain control: start low dose fentanyl (12mcg/h) 3. 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 currently, wants to continue 4. left arm AVF 3weeks, with steal syndrome, better with AVF ligation 09/09 5. hypokalemia: resolved; now borderline high. monitor 5. Anemia: stable. CKD induced. in EPO w/HD 6. DM2, mod control 7. CAD: S/P CABG in 2004. no acute issues. cont home meds 8. pAFib: rate controlled on low dose carvedilol only 9. OAC: on eliquis 10. dementia, mild 11. delirium, likely 2/2 uremia with sepsis - resolved 12. abn CT findings: 2 pancreatic lesions, adrenal lesion 3.8cm, stable. CA19.9 WNL. d/w daughter: no further work up desired. 13. Palliative consult: appreciate Ms Analia's input. pt reversed his direction: wants to go ahead with rx. He does have legal doc.s for DNR/DNI, now on file in chart. History of Present Illness History of Present Illness sleeping. daughter explains he had a busy morning already, standing and exercising with PT. Vitals Vitals Vital Signs Date Time Temp Pulse Resp B/P Pulse Ox O2 Delivery O2 Flow Rate FiO2 09/15/16 09:41 Room Air 09/15/16 07:00 98.2 116 22 145/77 94 98.2 09/14/16 22:58 2.0 Physical Exam General: Other (sleeping) Heart: Normal S1, Normal S2 Lungs: Clear Abdomen: Soft Extremities: No edema, Other (bilateral distal necrotic areas compatible with calciphylaxis) Skin: Other Labs LABS Laboratory Tests Test 09/14/16 17:24 09/14/16 20:50 09/15/16 08:10 09/15/16 08:28 Glucose (Fingerstick) 112mg/dL (70-99) 147mg/dL (70-99) 157mg/dL (70-99) Sodium Level 146mmol/L (136-145) Potassium Level 4.7mmol/L (3.5-5.1) Chloride Level 100mmol/L (98-107) Carbon Dioxide Level 21mmol/L (21-32) Anion Gap 25 (6-14) Blood Urea Nitrogen 29mg/dL (8-26) Creatinine 3.6mg/dL (0.7-1.3) Estimated GFR (Cockcroft-Gault) 16.1 Glucose Level 154mg/dL (70-99) Calcium Level 9.0mg/dL (8.5-10.1) Phosphorus Level 2.5mg/dL (2.6-4.7) Magnesium Level 2.1mg/dL (1.8-2.4) Albumin 2.3g/dL (3.4-5.0) LNIG COOPER MD Sep 15, 2016 10:09
--- NOTE | 2016-09-15 10:41 | PDOC ---
SUBJECTIVE ROS ESRD little less encephalopathic today CVS: no Orthopnea, no CP RESP: no SOB, no LOCO GI: no Nausea, no Vomiting : no Dysuria, no Urgency OBJECTIVE Vital Signs Vital Signs Date Time Temp Pulse Resp B/P Pulse Ox O2 Delivery O2 Flow Rate FiO2 09/15/16 09:41 Room Air 09/15/16 07:00 98.2 116 22 145/77 94 98.2 09/14/16 22:58 2.0 I & 0 Intake and Output 09/15/16 06:59 Intake Total 1150 ml Balance 1150 ml Intake Oral 0 ml IV Total 1150 ml # Voids 1 PHYSICAL EXAM Physical Exam GEN: Awake, Oriented x 1-2, In no distress EYES: Vision Unchanged, Conjunctiva Normal EN: No EN Drainage, Mucous Membranes dry NECK: no JVD, no JVP, Supple, no Thyromegaly CVS: S1S2, sys Murmur, No Gallop, No Rub,no Edema RESP: no Rales, no Rhonchi,no Acc. Muscle Use GI: BS + ve, NO Bruit, Non Tender, Non Distended : no CVA tenderness, no Suprapubic Tenderness DIAGNOSIS/ASSESSMENT Assessment & Plan ESRD: Dialysis as below F 180 NR 3.5 Hrs 3 K 2.5 Ca 140 Na 40 HC03 Qb 350 + Qd 500+ Heparin 0 Units Uf 1-2 Kgs or to dry weight as tolerated May give 25-50 gms of 25% Albumin if needed to maintain Hemodynamic stability Treatment plan reviewed and discussed with lpn cma ^Na -due to NaTSo4 ^ GAP due to NaTSO4 ANEMIA; Aranap as ordered, Transfuse with next HD as needed HTN: Current BP meds as reviewed. See orders for changes. AMS - due to MS - HD today to clear thao eto hepatically metabolized Opioids Nutrition - PPN for now Lowish Phos - IV K phos x 1 today PD fluid with ^ed WBCs -- willdo another pass in am Discussed Plan of Care with family at bedside Problems: COMMENT/RELEVANT DATA Meds Current Medications Medications (Trade) Dose Ordered Sig/Dirk Start Time Stop Time Status Last Admin Dose Admin Acetaminophen (Tylenol) 500 mg 1X PRN PRN 09/09/16 07:30 09/10/16 07:29 DC Acetaminophen/ Hydrocodone Bitart (Lortab 5/325) 2 tab PRN Q4HRS PRN 09/09/16 14:15 09/11/16 11:52 DC 09/11/16 04:49 2 TAB Albumin Human (Albuminar) 200 ml @ 200 mls/hr 1X PRN PRN 09/09/16 07:30 09/09/16 13:29 DC 09/09/16 09:37 200 MLS/HR Albuterol Sulfate (Ventolin Neb Soln) 2.5 mg PRN Q4HRS PRN 09/10/16 13:30 09/12/16 08:56 2.5 MG Allopurinol (Zyloprim) 100 mg DAILY 09/08/16 09:00 09/12/16 13:11 100 MG Amino Acids/ Glycerin/ Electrolytes (Procalamine) 1,000 ml @ 80 mls/hr [id number] 09/10/16 11:30 09/15/16 08:55 80 MLS/HR Amoxicillin/ Clavulanate Potassium (Augmentin 500/ 125mg) 1 tab DAILY 09/10/16 10:00 09/11/16 10:47 DC 09/10/16 10:43 1 TAB Apixaban (Eliquis) 2.5 mg BID 09/08/16 21:00 09/13/16 19:51 2.5 MG Atorvastatin Calcium (Lipitor) 40 mg QHS 09/08/16 21:00 09/11/16 20:55 40 MG Calcium Carbonate/ Glycine (Tums) 500 mg TID PRN 09/10/16 19:15 Carvedilol (Coreg) 3.125 mg BIDWMEALS 09/08/16 08:00 09/10/16 18:25 3.125 MG Cefazolin Sodium (Ancef 1gm Ivpb For Omni) 0 ml @ As Directed STK-MED ONCE 09/09/16 13:23 09/09/16 13:24 DC Cefazolin Sodium 1 gm/Sodium Chloride 500 ml @ 500 mls/hr 1X PERIOP ONCE 09/09/16 09:00 09/09/16 09:59 DC Cellulose 1 each STK-MED ONCE 09/09/16 14:12 09/09/16 14:13 DC Cellulose 1 each 1 each STK-MED ONCE 09/09/16 07:12 09/09/16 07:13 DC Cinacalcet (Sensipar) 30 mg DAILY 09/08/16 09:00 09/12/16 13:11 30 MG Clonidine HCl 0.1 mg 0.1 mg 1X PRN PRN 09/09/16 07:30 09/10/16 07:29 DC Darbepoetin Lasha (Aranesp) 60 mcg WEEKLYHS 09/08/16 21:00 09/08/16 21:06 60 MCG Dextrose (Dextrose 50%-Water Syringe) 12.5 gm PRN Q15MIN PRN 09/07/16 22:30 09/08/16 21:03 25 GM Diphenhydramine HCl (Benadryl) 50 mg 1X PRN PRN 09/12/16 08:45 09/12/16 16:00 DC 09/12/16 09:06 50 MG Docusate Sodium (Colace) 100 mg DAILY 09/08/16 09:00 09/12/16 13:10 100 MG Fentanyl Citrate (Fentanyl 2ml Vial) 50 mcg PRN Q2HR PRN 09/13/16 18:45 Fluconazole (Diflucan) 100 mg DAILY 09/08/16 09:00 09/12/16 13:11 100 MG Glimepiride (Amaryl) 4 mg DAILY 09/08/16 09:00 09/09/16 13:46 DC 09/08/16 07:59 4 MG Haloperidol Lactate (Haldol) 2 mg PRN Q6HRS PRN 09/14/16 18:00 09/14/16 17:31 2 MG Heparin Sodium (Porcine) 5000 unit/Sodium Chloride 505 ml @ 505 mls/hr 1X PERIOP ONCE 09/09/16 09:00 09/09/16 09:59 DC Hydromorphone HCl (Dilaudid) 0.5 mg PRN Q10MIN PRN 09/09/16 07:00 09/10/16 06:59 DC Hydromorphone HCl 1 mg 1 mg 1X ONCE 09/07/16 21:00 09/07/16 21:01 DC 09/07/16 20:59 1 MG Info (Anti-Coagulation Monitoring By Pharmacy) 1 each PRN DAILY PRN 09/07/16 23:45 09/08/16 02:30 1 EACH Info (PHARMACY MONITORING -- do not chart) 1 each PRN DAILY PRN 09/12/16 08:45 UNV Info 1 each 1 each PRN DAILY PRN 09/14/16 10:15 Insulin Aspart (Novolog) 5 units TIDAC 09/10/16 11:30 09/13/16 17:51 5 UNITS Insulin Detemir (Levemir) 15 units QHS 09/11/16 21:00 09/14/16 21:55 15 UNITS Labetalol HCl (Normodyne) 10 mg PRN Q1HR PRN 09/09/16 07:30 09/10/16 07:29 DC Lidocaine (Lidoderm) 1 patch DAILY 09/13/16 19:00 09/13/16 19:16 DC Lidocaine HCl (Xylocaine 2% Topical 30gm Tube) 1 marie TID 09/13/16 21:00 09/15/16 08:58 1 MARIE Lorazepam (Ativan) 0.5 mg PRN Q6HRS PRN 09/12/16 11:00 09/14/16 23:37 0.5 MG Magnesium Sulfate/ Dextrose 50 ml @ 25 mls/hr PRN DAILY PRN 09/10/16 10:45 Meropenem 1 gm/ Sodium Chloride 100 ml @ 200 mls/hr Q8HRS 09/07/16 22:00 UNV Meropenem/Sodium Chloride (Merrem/Iv Sodium Chloride 0.9% 50ml) 50 ml @ 100 mls/hr QHS 09/07/16 21:00 09/08/16 07:59 DC 09/07/16 21:05 100 MLS/HR Metoclopramide HCl 5 mg 5 mg PRN Q6HRS PRN 09/11/16 10:45 09/11/16 20:55 5 MG Midazolam HCl (Versed) 2 mg STK-MED ONCE 09/09/16 14:06 09/09/16 14:07 DC Morphine Sulfate 1 mg PRN Q2HR PRN 09/13/16 18:45 09/15/16 08:51 1 MG Ondansetron HCl (Zofran) 4 mg PRN Q6HRS PRN 09/10/16 19:15 09/11/16 08:39 4 MG Oxycodone/ Acetaminophen 1 tab 1 tab PRN Q4HRS PRN 09/11/16 12:00 09/13/16 19:51 1 TAB Pantoprazole Sodium (Protonix) 40 mg DAILYAC 09/10/16 20:00 09/11/16 08:38 40 MG Papaverine HCl 60 mg 60 mg STK-MED ONCE 09/09/16 14:12 09/09/16 14:13 DC Piperacillin Sod/ Tazobactam Sod/ Sodium Chloride (Zosyn/Iv Sodium Chloride 0.9% 50ml) 50 ml @ 100 mls/hr Q8HRS 09/11/16 14:00 09/15/16 05:24 100 MLS/HR Polyethylene Glycol (miraLAX PACKET) 17 gm PRN DAILY PRN 09/07/16 22:30 Potassium Chloride (Klor-Con) 20 meq 1X ONCE 09/07/16 23:00 09/07/16 23:01 DC 09/08/16 01:38 20 MEQ Prochlorperazine Edisylate (Compazine) 10 mg PRN Q6HRS PRN 09/11/16 10:30 09/11/16 10:49 10 MG Propofol (Diprivan) 20 ml @ As Directed STK-MED ONCE 09/09/16 14:51 09/09/16 14:52 DC Sevelamer Carbonate (Renvela) 2,400 mg TIDWMEALS 09/08/16 12:00 09/11/16 12:20 2,400 MG Sodium Thiosulfate 25 gm 25 gm 3X/WEEK 09/11/16 09:00 UNV Sodium Thiosulfate 25 gm/ Sodium Chloride 100 ml @ 100 mls/hr 3X/WEEK@16 09/11/16 16:00 09/14/16 16:00 100 MLS/HR Sodium Thiosulfate/ Sodium Chloride (Sodium Thiosulfate/Iv Sodium Chloride 0.9% 100ml) 100 ml @ 100 mls/hr 1X ONCE 09/12/16 16:00 09/12/16 16:59 DC 09/12/16 16:00 100 MLS/HR Sodium Chloride (Iv Sodium Chloride 0.9% 500ml Bag) 500 ml @ 500 mls/hr 1X ONCE 09/07/16 21:00 09/07/16 21:59 DC 09/07/16 21:04 500 MLS/HR Sodium Chloride (Iv Sodium Chloride 0.9% 1000ml Bag) 1,000 ml @ 400 mls/hr Q2H30M PRN 09/14/16 10:06 09/14/16 22:05 DC Sodium Chloride (Normal Saline Flush) 10 ml 1X PRN PRN 09/14/16 10:15 09/15/16 10:14 DC Sodium Chloride 10 ml 10 ml 1X PRN PRN 09/14/16 10:15 09/15/16 10:14 DC Tramadol HCl (Ultram) 50 mg PRN Q6HRS PRN 09/10/16 13:45 09/11/16 08:39 50 MG Vancomycin HCl 500 mg/Sodium Chloride 100 ml @ 100 mls/hr 1X ONCE 09/14/16 13:00 09/14/16 13:59 DC 09/14/16 15:30 100 MLS/HR Vancomycin HCl 1 each 1 each 1X ONCE 09/11/16 21:30 09/11/16 21:30 DC Vancomycin HCl/ Sodium Chloride (Iv Sodium Chloride 0.9% 100ml) 100 ml @ 100 mls/hr QMWF 09/16/16 16:00 Vancomycin HCl/ Sodium Chloride (Iv Sodium Chloride 0.9% 500ml Bag) 500 ml @ 250 mls/hr Q48H 09/09/16 22:00 09/09/16 22:00 DC Vitamin A/Vitamin D (Vitamin A & D Ointment) 1 marie TID 09/08/16 09:00 09/13/16 14:15 1 MARIE Lab Laboratory Tests Test 09/14/16 17:24 09/14/16 20:50 09/15/16 08:10 09/15/16 08:28 Glucose (Fingerstick) 112mg/dL (70-99) 147mg/dL (70-99) 157mg/dL (70-99) Sodium Level 146mmol/L (136-145) Potassium Level 4.7mmol/L (3.5-5.1) Chloride Level 100mmol/L (98-107) Carbon Dioxide Level 21mmol/L (21-32) Anion Gap 25 (6-14) Blood Urea Nitrogen 29mg/dL (8-26) Creatinine 3.6mg/dL (0.7-1.3) Estimated GFR (Cockcroft-Gault) 16.1 Glucose Level 154mg/dL (70-99) Calcium Level 9.0mg/dL (8.5-10.1) Phosphorus Level 2.5mg/dL (2.6-4.7) Magnesium Level 2.1mg/dL (1.8-2.4) Albumin 2.3g/dL (3.4-5.0) FILIPPO RODRIGUES MD Sep 15, 2016 10:41
[2016-09-15] MEDS ORDERED: fentaNYL 50MCG/HR PATCH 1 PATCH PATCH.TD72 TD SCH (11:00)
--- NOTE | 2016-09-15 11:20 | PDOC ---
PROGRESS NOTES Subjective Subjective "No, my hand doesn't hurt." Objective Objective Vascular Surgery - POD#6 Ligation left arterio-venous fistula O: Patient up in chair. Answered simple questions. Daughter and daughter-in- law at bedside. Awaiting possible scrotal/penile debridement today? LUE: Antecubital incisions intact with sutures. No swelling or drainage. Left hand warm. No motor or sensory deficits. Denies left hand pain. Strong acid maker. Plan: 1. Will periodically see pt and once nearing discharge, may consider removal of incisional sutures prior to discharge. 2. 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 Resolved after ligation. 3. Renal failure. Intermittent HD. Patient has been refusing from time-to- time. Had dialysis yesterday. Vital Signs Date Time Temp Pulse Resp B/P Pulse Ox O2 Delivery O2 Flow Rate FiO2 09/15/16 09:41 Room Air 09/15/16 07:00 98.2 116 22 145/77 94 98.2 09/14/16 22:58 2.0 Intake and Output 09/15/16 06:59 Intake Total 1150 ml Balance 1150 ml Intake Oral 0 ml IV Total 1150 ml # Voids 1 Assessment Assessment Problems Medical Problems: (1) Open wound of scrotum Status: Acute Comment Review of Relevant I have reviewed the following items robert (where applicable) has been applied. Labs Laboratory Tests Test 09/13/16 11:59 09/13/16 16:54 09/13/16 21:04 09/14/16 06:00 Glucose (Fingerstick) 154mg/dL (70-99) 202mg/dL (70-99) 222mg/dL (70-99) White Blood Count 8.0x10^3/uL (4.0-11.0) Red Blood Count 2.54x10^6/uL (4.30-5.70) Hemoglobin 8.2g/dL (13.0-17.5) Hematocrit 24.7% (39.0-53.0) Mean Corpuscular Volume 97fL (79-100) Mean Corpuscular Hemoglobin 32pg (25-35) Mean Corpuscular Hemoglobin Concent 33g/dL (31-37) Red Cell Distribution Width 16.9% (11.5-14.5) Platelet Count 254x10^3/uL (140-400) Neutrophils (%) (Auto) 73% (31-73) Lymphocytes (%) (Auto) 13% (24-48) Monocytes (%) (Auto) 8% (0-9) Eosinophils (%) (Auto) 5% (0-3) Basophils (%) (Auto) 1% (0-3) Neutrophils # (Auto) 5.8x10^3uL (1.8-7.7) Lymphocytes # (Auto) 1.0x10^3/uL (1.0-4.8) Monocytes # (Auto) 0.6x10^3/uL (0.0-1.1) Eosinophils # (Auto) 0.4x10^3/uL (0.0-0.7) Basophils # (Auto) 0.1x10^3/uL (0.0-0.2) Sodium Level 140mmol/L (136-145) Potassium Level 4.3mmol/L (3.5-5.1) Chloride Level 95mmol/L (98-107) Carbon Dioxide Level 22mmol/L (21-32) Anion Gap 23 (6-14) Blood Urea Nitrogen 46mg/dL (8-26) Creatinine 5.1mg/dL (0.7-1.3) Estimated GFR (Cockcroft-Gault) 10.8 Glucose Level 146mg/dL (70-99) Calcium Level 8.9mg/dL (8.5-10.1) Phosphorus Level 2.8mg/dL (2.6-4.7) Magnesium Level 2.1mg/dL (1.8-2.4) Albumin 2.2g/dL (3.4-5.0) Test 09/14/16 07:29 09/14/16 17:24 09/14/16 20:50 09/15/16 08:10 Glucose (Fingerstick) 132mg/dL (70-99) 112mg/dL (70-99) 147mg/dL (70-99) Sodium Level 146mmol/L (136-145) Potassium Level 4.7mmol/L (3.5-5.1) Chloride Level 100mmol/L (98-107) Carbon Dioxide Level 21mmol/L (21-32) Anion Gap 25 (6-14) Blood Urea Nitrogen 29mg/dL (8-26) Creatinine 3.6mg/dL (0.7-1.3) Estimated GFR (Cockcroft-Gault) 16.1 Glucose Level 154mg/dL (70-99) Calcium Level 9.0mg/dL (8.5-10.1) Phosphorus Level 2.5mg/dL (2.6-4.7) Magnesium Level 2.1mg/dL (1.8-2.4) Albumin 2.3g/dL (3.4-5.0) Test 09/15/16 08:28 Glucose (Fingerstick) 157mg/dL (70-99) Laboratory Tests Test 09/14/16 17:24 09/14/16 20:50 09/15/16 08:10 09/15/16 08:28 Glucose (Fingerstick) 112mg/dL (70-99) 147mg/dL (70-99) 157mg/dL (70-99) Sodium Level 146mmol/L (136-145) Potassium Level 4.7mmol/L (3.5-5.1) Chloride Level 100mmol/L (98-107) Carbon Dioxide Level 21mmol/L (21-32) Anion Gap 25 (6-14) Blood Urea Nitrogen 29mg/dL (8-26) Creatinine 3.6mg/dL (0.7-1.3) Estimated GFR (Cockcroft-Gault) 16.1 Glucose Level 154mg/dL (70-99) Calcium Level 9.0mg/dL (8.5-10.1) Phosphorus Level 2.5mg/dL (2.6-4.7) Magnesium Level 2.1mg/dL (1.8-2.4) Albumin 2.3g/dL (3.4-5.0) Microbiology 09/07/16 Blood Culture - Final, Complete NO GROWTH AFTER 5 DAYS Medications Current Medications Meropenem/Sodium Chloride (Merrem/Iv Sodium Chloride 0.9% 100ml) 100 ml @ 200 mls/hr Q8HRS IV ; Start 09/07/16 at 22:00; Status UNV Vancomycin HCl 1 each 1 each PRN DAILY PRN MC SEE COMMENTS Last administered on 09/14/16t 12:04; Start 09/07/16 at 20:45 Sodium Chloride (Iv Sodium Chloride 0.9% 500ml Bag) 500 ml @ 500 mls/hr 1X ONCE IV Last administered on 09/07/16 21:04; Start 09/07/16 at 21:00; Stop at 21:59; Status DC Hydromorphone HCl 1 mg 1 mg 1X ONCE IV Last administered on 09/07/16 20:59; Start 09/07/16 at 21:00; Stop 09/07/16 at 21:01; Status DC Meropenem 500 mg/ Sodium Chloride 50 ml @ 100 mls/hr QHS IV Last administered on 09/07/16 21:05; Start 09/07/16 at 21:00; Stop 09/08/16 at 07:59; Status DC Vancomycin HCl/ Sodium Chloride (Iv Sodium Chloride 0.9% 500ml Bag) 500 ml @ 250 mls/hr 1X ONCE IV Last administered on 09/07/16 22:07; Start 09/07/16 at 21:30; Stop 09/07/16 at 23:29; Status DC Ondansetron HCl (Zofran) 4 mg PRN Q8HRS PRN IV NAUSEA/VOMITING Last administered on 09/07/16 22:43; Start 09/07/16 at 22:00; Stop 09/08/16 at 21:59 ; Status DC Morphine Sulfate 4 mg 4 mg PRN Q2HR PRN IV SEVERE PAIN Last administered on 21:12; Start 09/07/16 at 22:00; Stop 09/08/16 at 21:59; Status DC Sodium Chloride (Iv Sodium Chloride 0.9% 1000ml Bag) 1,000 ml @ 75 mls/hr [id number] IV Last administered on 09/08/16 12:56; Start 09/07/16 at 21:52; Stop 09/08/16 at 21:51; Status DC Insulin Aspart (Novolog) 0-7 UNITS TIDWMEALS SQ ; Start 09/08/16 at 08:00; Stop 09/08/16 at 08:00; Status DC Dextrose (Dextrose 50%-Water Syringe) 12.5 gm PRN Q15MIN PRN IV SEE COMMENTS Last administered on 09/08/16 21:03; Start 09/07/16 at 22:30 Allopurinol (Zyloprim) 100 mg DAILY PO Last administered on 09/12/16 13:11; Start 09/08/16 at 09:00 Apixaban (Eliquis) 2.5 mg DAILY PO Last administered on 09/08/16 07:59; Start 09/08/16 at 09:00; Stop 09/08/16 at 10:43; Status DC Atorvastatin Calcium (Lipitor) 40 mg QHS PO Last administered on 09/11/16 20: 55; Start 09/08/16 at 21:00 Carvedilol (Coreg) 3.125 mg BIDWMEALS PO Last administered on 09/10/16 18:25; Start 09/08/16 at 08:00 Cinacalcet (Sensipar) 30 mg DAILY PO Last administered on 09/12/16 13:11; Start 09/08/16 at 09:00 Glimepiride (Amaryl) 4 mg DAILY PO Last administered on 09/08/16 07:59; Start 09/08/16 at 09:00; Stop 09/09/16 at 13:46; Status DC Acetaminophen/ Hydrocodone Bitart (Lortab 5/325) 1 tab PRN Q6HRS PRN PO SEVERE PAIN Last administered on 09/09/16 06:16; Start 09/07/16 at 22:30; Stop at 14:14; Status DC Polyethylene Glycol (miraLAX PACKET) 17 gm PRN DAILY PRN PO CONSTIPATION; Start 09/07/16 at 22:30 Sevelamer Carbonate (Renvela) 2.4 gm TIDWMEALS PO Last administered on 07:59; Start 09/08/16 at 08:00; Stop 09/08/16 at 12:01; Status DC Vitamin A/Vitamin D (Vitamin A & D Ointment) 1 katie TID TP Last administered on 09/13/16 14:15; Start 09/08/16 at 09:00 Docusate Sodium (Colace) 100 mg PRN DAILY PRN PO CONSTIPATION; Start 09/07/16 at 22:45 Docusate Sodium (Colace) 100 mg DAILY PO Last administered on 09/12/16 13:10; Start 09/08/16 at 09:00 Potassium Chloride (Klor-Con) 20 meq 1X ONCE PO Last administered on 01:38; Start 09/07/16 at 23:00; Stop 09/07/16 at 23:01; Status DC Insulin Aspart (Novolog) 0-7 UNITS QIDACHS SQ Last administered on 09/13/16 17 :53; Start 09/07/16 at 22:45 Info (Anti-Coagulation Monitoring By Pharmacy) 1 each PRN DAILY PRN MC SEE COMMENTS Last administered on 09/08/16 02:30; Start 09/07/16 at 23:45 Vancomycin HCl 1 each 1 each 1X ONCE MC ; Start 09/11/16 at 21:30; Stop at 21:30; Status DC Vancomycin HCl 1.5 gm/Sodium Chloride 500 ml @ 250 mls/hr Q48H IV ; Start 09/09 at 22:00; Stop 09/09/16 at 22:00; Status DC Piperacillin Sod/ Tazobactam Sod/ Sodium Chloride (Zosyn/Iv Sodium Chloride 0.9 % 50ml) 50 ml @ 100 mls/hr Q8HRS IV Last administered on 09/10/16 06:11; Start 09/08/16 at 08:30; Stop 09/10/16 at 09:00; Status DC Fluconazole (Diflucan) 100 mg DAILY PO Last administered on 09/12/16 13:11; Start 09/08/16 at 09:00 Darbepoetin Lasha (Aranesp) 60 mcg WEEKLYHS SQ Last administered on 09/08/16 21 :06; Start 09/08/16 at 21:00 Apixaban (Eliquis) 2.5 mg BID PO Last administered on 09/13/16 19:51; Start at 21:00 Vancomycin HCl 1 each 1X ONCE MC Last administered on 09/09/16 06:00; Start 09/09/16 at 06:00; Stop 09/09/16 at 06:01; Status DC Sevelamer Carbonate (Renvela) 2,400 mg TIDWMEALS PO Last administered on 12:20; Start 09/08/16 at 12:00 Insulin Aspart (Novolog) 8 units TIDAC SQ Last administered on 09/10/16 08:41 ; Start 09/08/16 at 12:00; Stop 09/10/16 at 10:17; Status DC Lorazepam (Ativan) 0.5 mg PRN Q6HRS PRN PO ANXIETY / AGITATION Last administered on 09/11/16 11:45; Start 09/08/16 at 13:00 Fentanyl Citrate (Fentanyl 2ml Vial) 25 mcg PRN Q5MIN PRN IV MILD PAIN; Start 09/09/16 at 07:00; Stop 09/10/16 at 06:59; Status DC Fentanyl Citrate (Fentanyl 2ml Vial) 50 mcg PRN Q5MIN PRN IV MODERATE PAIN; Start 09/09/16 at 07:00; Stop 09/10/16 at 06:59; Status DC Morphine Sulfate 1 mg PRN Q10MIN PRN IV SEVERE PAIN; Start 09/09/16 at 07:00; Stop 09/10/16 at 06:59; Status DC Lidocaine HCl 2 ml PRN 1X PRN ID PRIOR TO IV START; Start 09/09/16 at 07:00; Stop 09/10/16 at 06:59; Status DC Hydromorphone HCl (Dilaudid) 0.5 mg PRN Q10MIN PRN IV SEV PAIN, Second choice; Start 09/09/16 at 07:00; Stop 09/10/16 at 06:59; Status DC Prochlorperazine Edisylate 5 mg 5 mg PACU PRN PRN IV NAUSEA, MRX1; Start at 07:00; Stop 09/10/16 at 06:59; Status DC Sodium Chloride (Iv Sodium Chloride 0.9% 1000ml Bag) 1,000 ml @ 0 mls/hr Q0M IV ; Start 09/09/16 at 12:00; Stop 09/10/16 at 10:51; Status DC Morphine Sulfate 4 mg PRN Q2HR PRN IV SEVERE PAIN Last administered on 10:43; Start 09/09/16 at 01:00; Stop 09/11/16 at 15:23; Status DC Lidocaine HCl 30 ml STK-MED ONCE .ROUTE ; Start 09/09/16 at 07:12; Stop at 07:13; Status DC Cellulose 1 each STK-MED ONCE .ROUTE ; Start 09/09/16 at 07:12; Stop 09/09/16 at 07:13; Status DC Papaverine HCl 60 mg 60 mg STK-MED ONCE .ROUTE ; Start 09/09/16 at 07:13; Stop 09/09/16 at 07:14; Status DC Sodium Chloride 1,000 ml @ 1,000 mls/hr Q1H PRN IV hypotension; Start 09/09/16 at 07:30; Stop 09/09/16 at 13:29; Status DC Albumin Human (Albuminar) 200 ml @ 200 mls/hr 1X PRN PRN IV Hypotension Last administered on 09/09/16t 09:37; Start 09/09/16 at 07:30; Stop 09/09/16 at 13:29 ; Status DC Acetaminophen (Tylenol) 500 mg 1X PRN PRN PO MILD PAIN / TEMP; Start 09/09/16 at 07:30; Stop 09/10/16 at 07:29; Status DC Diphenhydramine HCl (Benadryl) 25 mg 1X PRN PRN IV ITCHING; Start 09/09/16 at 07:30; Stop 09/10/16 at 07:29; Status DC Diphenhydramine HCl (Benadryl) 25 mg 1X PRN PRN IV ITCHING; Start 09/09/16 at 07:30; Stop 09/10/16 at 07:29; Status DC Labetalol HCl (Normodyne) 10 mg PRN Q1HR PRN IVP SBP > 180; Start 09/09/16 at 07:30; Stop 09/10/16 at 07:29; Status DC Clonidine HCl 0.1 mg 0.1 mg 1X PRN PRN PO SBP > 180; Start 09/09/16 at 07:30; Stop 09/10/16 at 07:29; Status DC Sodium Chloride (Iv Sodium Chloride 0.9% 1000ml Bag) 1,000 ml @ 400 mls/hr Q2H30M PRN IV PATENCY; Start 09/09/16 at 07:30; Stop 09/09/16 at 19:29; Status DC Info 1 each 1 each PRN DAILY PRN MC SEE COMMENTS; Start 09/09/16 at 07:30; Stop 09/14/16 at 10:15; Status DC Heparin Sodium (Porcine) 5000 unit/Sodium Chloride 505 ml @ 505 mls/hr 1X PERIOP ONCE IRR ; Start 09/09/16 at 09:00; Stop 09/09/16 at 09:59; Status DC Cefazolin Sodium 1 gm/Sodium Chloride 500 ml @ 500 mls/hr 1X PERIOP ONCE IRR ; Start 09/09/16 at 09:00; Stop 09/09/16 at 09:59; Status DC Cefazolin Sodium (Ancef 1gm Ivpb For Omni) 0 ml @ As Directed STK-MED ONCE IV ; Start 09/09/16 at 13:23; Stop 09/09/16 at 13:24; Status DC Acetaminophen/ Hydrocodone Bitart (Lortab 5/325) 1 tab PRN Q4HRS PRN PO PAIN; Start 09/09/16 at 14:15; Stop 09/11/16 at 11:52; Status DC Acetaminophen/ Hydrocodone Bitart (Lortab 5/325) 2 tab PRN Q4HRS PRN PO PAIN Last administered on 09/11/16 04:49; Start 09/09/16 at 14:15; Stop 09/11/16 at 11:52; Status DC Midazolam HCl (Versed) 2 mg STK-MED ONCE .ROUTE ; Start 09/09/16 at 14:06; Stop 09/09/16 at 14:07; Status DC Fentanyl Citrate 100 mcg 100 mcg STK-MED ONCE .ROUTE ; Start 09/09/16 at 14:06; Stop 09/09/16 at 14:07; Status DC Vancomycin HCl/ Sodium Chloride (Iv Sodium Chloride 0.9% 100ml) 100 ml @ 100 mls/hr QMWF IV Last administered on 09/09/16 17:36; Start 09/09/16 at 16:00; Stop 09/11/16 at 15:32; Status DC Lidocaine HCl 20 ml STK-MED ONCE .ROUTE ; Start 09/09/16 at 14:11; Stop at 14:12; Status DC Lidocaine HCl 20 ml STK-MED ONCE .ROUTE ; Start 09/09/16 at 14:11; Stop at 14:12; Status DC Cellulose 1 each STK-MED ONCE .ROUTE ; Start 09/09/16 at 14:12; Stop 09/09/16 at 14:13; Status DC Papaverine HCl 60 mg 60 mg STK-MED ONCE .ROUTE ; Start 09/09/16 at 14:12; Stop 09/09/16 at 14:13; Status DC Propofol (Diprivan) 20 ml @ As Directed STK-MED ONCE IV ; Start 09/09/16 at 14: 51; Stop 09/09/16 at 14:52; Status DC Amoxicillin/ Clavulanate Potassium (Augmentin 500/ 125mg) 1 tab DAILY PO Last administered on 09/10/16 10:43; Start 09/10/16 at 10:00; Stop 09/11/16 at 10:47 ; Status DC Insulin Aspart (Novolog) 5 units TIDAC SQ Last administered on 09/13/16 17:51 ; Start 09/10/16 at 11:30 Insulin Detemir (Levemir) 10 units QHS SQ Last administered on 09/10/16 21:46 ; Start 09/10/16 at 21:00; Stop 09/11/16 at 10:42; Status DC Sodium Thiosulfate 25 gm 25 gm 3X/WEEK IV ; Start 09/11/16 at 09:00; Status UNV Magnesium Sulfate/ Dextrose 50 ml @ 25 mls/hr PRN DAILY PRN IV for Mag < 1.7 on am labs; Start 09/10/16 at 10:45 Sodium Thiosulfate 25 gm/ Sodium Chloride 100 ml @ 100 mls/hr 3X/WEEK@16 IV Last administered on 09/14/16 16:00; Start 09/11/16 at 16:00 Amino Acids/ Glycerin/ Electrolytes (Procalamine) 1,000 ml @ 80 mls/hr [id number] IV Last administered on 09/15/16 08:55; Start 09/10/16 at 11:30 Fentanyl Citrate (Fentanyl 2ml Vial) 25 mcg PRN Q2HR PRN IV PAIN Last administered on 09/13/16 17:02; Start 09/10/16 at 13:00; Stop 09/13/16 at 18:42 ; Status DC Albuterol Sulfate (Ventolin Neb Soln) 2.5 mg PRN Q4HRS PRN NEB SHORTNESS OF BREATH Last administered on 09/12/16 08:56; Start 09/10/16 at 13:30 Tramadol HCl (Ultram) 50 mg PRN Q6HRS PRN PO PAIN Last administered on 08:39; Start 09/10/16 at 13:45 Ondansetron HCl (Zofran) 4 mg PRN Q6HRS PRN IV NAUSEA/VOMITING Last administered on 09/11/16 08:39; Start 09/10/16 at 19:15 Calcium Carbonate/ Glycine (Tums) 500 mg TID PRN PO INDIGESTION; Start at 19:15 Pantoprazole Sodium (Protonix) 40 mg DAILYAC PO Last administered on 09/11/16 08:38; Start 09/10/16 at 20:00 Prochlorperazine Edisylate (Compazine) 10 mg PRN Q6HRS PRN IV NAUSEA/VOMITING Last administered on 09/11/16 10:49; Start 09/11/16 at 10:30 Insulin Detemir (Levemir) 15 units QHS SQ Last administered on 09/14/16 21:55 ; Start 09/11/16 at 21:00 Metoclopramide HCl 5 mg 5 mg PRN Q6HRS PRN IV NAUSEA/VOMITING Last administered on 09/11/16 20:55; Start 09/11/16 at 10:45 Piperacillin Sod/ Tazobactam Sod/ Sodium Chloride (Zosyn/Iv Sodium Chloride 0.9 % 50ml) 50 ml @ 100 mls/hr Q8HRS IV Last administered on 09/15/16 05:24; Start 09/11/16 at 14:00 Oxycodone/ Acetaminophen 1 tab 1 tab PRN Q4HRS PRN PO PAIN Last administered on 09/13/16 19:51; Start 09/11/16 at 12:00 Sodium Thiosulfate/ Sodium Chloride (Sodium Thiosulfate/Iv Sodium Chloride 0.9% 100ml) 100 ml @ 100 mls/hr 1X ONCE IV Last administered on 09/12/16 16:00; Start 09/12/16 at 16:00; Stop 09/12/16 at 16:59; Status DC Lorazepam (Ativan) 1 mg 1X ONCE IV ; Start 09/11/16 at 18:00; Stop 09/11/16 at 18:01; Status DC Haloperidol Lactate (Haldol) 2 mg PRN Q24HRS PRN IVP AGITATION Last administered on 09/14/16 11:04; Start 09/11/16 at 18:00; Stop 09/14/16 at 15:06 ; Status DC Lorazepam 1 mg 1 mg 1X ONCE IV Last administered on 09/12/16 03:14; Start at 01:00; Stop 09/12/16 at 01:01; Status DC Sodium Chloride (Iv Sodium Chloride 0.9% 1000ml Bag) 1,000 ml @ 1,000 mls/hr Q1H PRN IV hypotension; Start 09/12/16 at 08:00; Stop 09/12/16 at 13:59; Status DC Diphenhydramine HCl 50 mg 50 mg 1X PRN PRN IV ITCHING Last administered on 09/12 09:06; Start 09/12/16 at 08:45; Stop 09/12/16 at 16:00; Status DC Sodium Chloride (Iv Sodium Chloride 0.9% 1000ml Bag) 1,000 ml @ 400 mls/hr Q2H30M PRN IV PATENCY; Start 09/12/16 at 08:00; Stop 09/12/16 at 19:59; Status DC Info (PHARMACY MONITORING -- do not chart) 1 each PRN DAILY PRN MC SEE COMMENTS ; Start 09/12/16 at 08:45; Status UNV Lorazepam 0.5 mg 0.5 mg PRN Q6HRS PRN IV ANXIETY / AGITATION Last administered on 09/14/16 23:37; Start 09/12/16 at 11:00 Vancomycin HCl/ Sodium Chloride (Iv Sodium Chloride 0.9% 100ml) 100 ml @ 100 mls/hr 1X ONCE IV Last administered on 09/12/16 14:40; Start 09/12/16 at 13: 00; Stop 09/12/16 at 13:59; Status DC Fentanyl Citrate (Fentanyl 2ml Vial) 50 mcg PRN Q2HR PRN IV PAIN; Start at 18:45 Morphine Sulfate 1 mg PRN Q2HR PRN IV PAIN Last administered on 09/15/16 08:51 ; Start 09/13/16 at 18:45; Stop 09/15/16 at 10:39; Status DC Lidocaine (Lidoderm) 1 patch DAILY TD ; Start 09/13/16 at 19:00; Stop 09/13/16 at 19:16; Status DC Lidocaine HCl 1 katie 1 katie TID TP Last administered on 09/15/16 08:58; Start at 21:00 Sodium Chloride (Iv Sodium Chloride 0.9% 1000ml Bag) 1,000 ml @ 1,000 mls/hr Q1H PRN IV hypotension; Start 09/14/16 at 10:06; Stop 09/14/16 at 16:05; Status DC Sodium Chloride (Normal Saline Flush) 10 ml 1X PRN PRN IV AP catheter pack; Start 09/14/16 at 10:15; Stop 09/15/16 at 10:14; Status DC Sodium Chloride 10 ml 10 ml 1X PRN PRN IV SOLUTION DIRECTOR catheter pack; Start 09/14/16 at 10:15; Stop 09/15/16 at 10:14; Status DC Sodium Chloride (Iv Sodium Chloride 0.9% 1000ml Bag) 1,000 ml @ 400 mls/hr Q2H30M PRN IV PATENCY; Start 09/14/16 at 10:06; Stop 09/14/16 at 22:05; Status DC Info 1 each 1 each PRN DAILY PRN MC SEE COMMENTS; Start 09/14/16 at 10:15 Vancomycin HCl 500 mg/Sodium Chloride 100 ml @ 100 mls/hr 1X ONCE IV Last administered on 09/14/16 15:30; Start 09/14/16 at 13:00; Stop 09/14/16 at 13:59 ; Status DC Vancomycin HCl/ Sodium Chloride (Iv Sodium Chloride 0.9% 100ml) 100 ml @ 100 mls/hr QMWF IV ; Start 09/16/16 at 16:00 Haloperidol Lactate (Haldol) 2 mg PRN Q6HRS PRN IVP AGITATION Last administered on 09/14/16 17:31; Start 09/14/16 at 18:00 Fentanyl (Duragesic 50mcg/ Hr Patch) 1 patch Q3DAYS TD ; Start 09/15/16 at 11:00 Active Scripts Active Mupirocin Ointment (Mupirocin) 22 Gm Oint...g. 1 Katie TP TID Vitamin A & D Ointment (Vits A & D/White Pet/Lanolin) 56.7 Gm Oint...g. 1 Katie TP TID Diflucan (Fluconazole) 100 Mg Tablet 100 Mg PO DAILY Allopurinol 100 Mg Tablet 100 Mg PO DAILY Hydrocodone-Apap 5-325 (Hydrocodone Bit/Acetaminophen) 1 Each Tablet 1 Tab PO Q6HRS PRN Eliquis (Apixaban) 2.5 Mg Tablet 2.5 Mg PO DAILY Renvela (Sevelamer Carbonate) 2.4 Gm Powd.pack 2.4 Gm PO TIDWMEALS Miralax (Polyethylene Glycol 3350) 17 Gm Powd.pack 17 Gm PO PRN DAILY PRN Carvedilol 3.125 Mg Tablet 3.125 Mg PO BIDWMEALS Reported Sensipar (Cinacalcet Hcl) 30 Mg Tablet 1 Tab PO DAILY Glimepiride 2 Mg Tablet 4 Mg PO DAILY Novolog (Insulin Aspart) 100 Unit/1 Ml Cartridge 8 Unit SQ TIDAC Atorvastatin Calcium 40 Mg Tablet 1 Tab PO DAILY Vitals/I & O Vital Sign - Last 24 Hours 09/14/16 09/14/16 09/14/16 09/14/16 15:00 15:30 19:00 20:00 Temp 97.4 98.0 97.4 98.0 Pulse 48 116 Resp 14 14 18 B/P 145/79 133/50 Pulse Ox 100 94 O2 Delivery Room Air Room Air Room Air Room Air 09/14/16 09/14/16 09/14/16 09/15/16 20:22 22:58 23:37 00:00 Temp 97.8 97.8 Pulse 107 Resp 22 18 22 B/P 146/78 Pulse Ox 94 94 98 94 O2 Delivery Room Air Room Air Room Air O2 Flow Rate 2.0 09/15/16 09/15/16 09/15/16 09/15/16 05:31 07:00 08:51 09:41 Temp 98.2 98.2 Pulse 116 Resp 22 B/P 145/77 Pulse Ox 94 94 O2 Delivery Room Air Room Air Room Air Room Air Intake and Output 09/14/16 09/14/16 09/15/16 14:59 22:59 06:59 Intake Total 1150 ml 0 ml Balance 1150 ml 0 ml ARNALDO HENRIQUEZ APRN Sep 15, 2016 11:20
[2016-09-15] MEDS ORDERED: IV NORMAL SALINE 1000ML BAG 1,000 ML IV PRN ×2 (12:16)
[2016-09-15] MEDS: HALOPERIDOL LACTATE 5 MG/ML VIAL. IVP PRN (12:20)
[2016-09-15] MEDS ORDERED: diphenhydrAMINE 50 MG/ML VIAL IV PRN ×2 (12:30)
[2016-09-15] MEDS ORDERED: DIALYSIS PATIENT. MC PRN (12:30)
[2016-09-15] MEDS ORDERED: ALBUMIN HUMAN 25% 200 ML IV PRN (12:30)
[2016-09-15] MEDS ORDERED: cloNIDine HCL 0.1 MG TABLET PO PRN (12:30)
[2016-09-15] MEDS ORDERED: ACETAMINOPHEN 500 MG TABLET PO PRN (12:30)
[2016-09-15] MEDS ORDERED: LABETALOL 20 MG/4 ML DISP.SYRIN. IVP PRN (12:30)
[2016-09-15 12:34] VITALS: BP 116/50
--- NOTE | 2016-09-15 14:08 | PDOC ---
Objective: Objective: Reviewed other notes. Continue w/ aggressive care. Vital Signs: Vital Signs Date Time Temp Pulse Resp B/P Pulse Ox O2 Delivery O2 Flow Rate FiO2 09/15/16 12:34 97.2 100 22 116/50 90 Room Air 97.2 09/14/16 22:58 2.0 Labs: Laboratory Tests Test 09/14/16 17:24 09/14/16 20:50 09/15/16 08:10 09/15/16 08:28 Glucose (Fingerstick) 112mg/dL 147mg/dL 157mg/dL Sodium Level 146mmol/L Potassium Level 4.7mmol/L Chloride Level 100mmol/L Carbon Dioxide Level 21mmol/L Anion Gap 25 Blood Urea Nitrogen 29mg/dL Creatinine 3.6mg/dL Estimated GFR (Cockcroft-Gault) 16.1 Glucose Level 154mg/dL Calcium Level 9.0mg/dL Phosphorus Level 2.5mg/dL Magnesium Level 2.1mg/dL Albumin 2.3g/dL Test 09/15/16 11:48 Glucose (Fingerstick) 162mg/dL PE: GEN: NAD, dialyzing ABD: S/ND/NT NEURO/PSYCH: was resting, awakens and responds during exam A/P: Pancreatic lesions -on noncontrast CT, CA19-9 WNL -- Continue same per GI. Further eval of panc lesions not recommended consider other health issues. ENRIQUE HELM Sep 15, 2016 14:08
[2016-09-15] MEDS: fentaNYL 12MCG/HR PATCH 1 PATCH PATCH.TD72 TD SCH (17:26)
[2016-09-15 19:00] VITALS: BP 129/60
[2016-09-15] MEDS: ATORVASTATIN CALCIUM 40 MG TABLET. PO SCH (20:03)
[2016-09-15] MEDS: DARBEPOETIN ALFA 60 MCG/0.3 ML DISP.SYRIN. SQ SCH (21:23)
[2016-09-15] MEDS: fentaNYL PF VIAL 100 MCG/2 ML VIAL IV PRN (21:30)
[2016-09-15] MEDS: INSULIN DETEMIR 300 UNITS/3 ML INSULN.PEN. SQ SCH (21:42)
[2016-09-15 23:00] VITALS: BP 120/54
[2016-09-16] MEDS: fentaNYL PF VIAL 100 MCG/2 ML VIAL IV PRN ×4 (01:16→20:37)
[2016-09-16] MEDS: AMINO AC 3%/ELECTROLYTE/GLYCER 1,000 ML IV SCH ×2 (02:18→17:30)
[2016-09-16 03:00] VITALS: BP 133/70
[2016-09-16] MEDS: PIPERACILLIN/TAZOBACTAM 2.25 GM in IV NORMAL SALINE 50ML 50 ML IV SCH ×3 (06:19→22:07)
[2016-09-16] MEDS: PANTOPRAZOLE 40 MG TABLET.DR. PO SCH (06:23)
[2016-09-16] MEDS: HALOPERIDOL LACTATE 5 MG/ML VIAL. IVP PRN ×2 (06:27→20:37)
[2016-09-16 06:58] LABS: ALBUMIN 2.2 g/dL (3.4-5.0); CALCIUM 8.4 mg/dL (8.5-10.1); CREATININE 2.5 mg/dL (0.7-1.3); GFR 24.6; PHOSPHORUS 2.7 mg/dL (2.6-4.7); POTASSIUM 3.9 mmol/L (3.5-5.1)
[2016-09-16 07:00] VITALS: BP 128/39
[2016-09-16] MEDS: INSULIN ASPART 300 UNITS/3 ML INSULN.PEN SQ SCH ×7 (07:30→21:17)
[2016-09-16] MEDS: SEVELAMER CARBONATE 800 MG TABLET. PO SCH ×3 (08:00→16:31)
[2016-09-16] MEDS ORDERED: IV NORMAL SALINE 1000ML BAG 1,000 ML IV PRN ×2 (08:34)
[2016-09-16] MEDS ORDERED: diphenhydrAMINE 50 MG/ML VIAL IV PRN ×2 (08:45)
[2016-09-16] MEDS ORDERED: ALBUMIN HUMAN 25% 200 ML IV PRN (08:45)
[2016-09-16] MEDS ORDERED: cloNIDine HCL 0.1 MG TABLET PO PRN (08:45)
[2016-09-16] MEDS ORDERED: LABETALOL 20 MG/4 ML DISP.SYRIN. IVP PRN (08:45)
[2016-09-16] MEDS ORDERED: ACETAMINOPHEN 500 MG TABLET PO PRN (08:45)
[2016-09-16] MEDS ORDERED: DIALYSIS PATIENT. MC PRN (08:45)
--- NOTE | 2016-09-16 09:33 | PDOC ---
Dialysis Progress Note Dialysis Note Dialysis Note Seen on Hemodialysis, tolerating treatment Well Vitals on Hemodialysis: 131/75 116 afeb General Appearance: Awake: Alert Oriented x 3 Neck: No JVD or JVP Chest: CTA Oscar Heart: S1 S2 Abdomen - Soft NTND Extremities - No Edema ESRD: Dialysis as below F 180 NR 3.5 Hrs 3 K 2.5 Ca 140 Na 35 HC03 Qb 350 + Qd 500+ Heparin 0 Units Uf 1-2 Kgs or to dry weight as tolerated May give 25-50 gms of 25% Albumin if needed to maintain Hemodynamic stability Treatment plan reviewed and discussed with senior cytogenetics laboratory director Vitals Vital Signs Vital Signs Date Time Temp Pulse Resp B/P Pulse Ox O2 Delivery O2 Flow Rate FiO2 09/16/16 09:28 96 Room Air 09/16/16 07:00 98.6 96 14 128/39 98.6 09/14/16 22:58 2.0 Labs Last Labs Laboratory Tests Test 09/14/16 17:24 09/14/16 20:50 09/15/16 08:10 09/15/16 08:28 Glucose (Fingerstick) 112mg/dL (70-99) 147mg/dL (70-99) 157mg/dL (70-99) Sodium Level 146mmol/L (136-145) Potassium Level 4.7mmol/L (3.5-5.1) Chloride Level 100mmol/L (98-107) Carbon Dioxide Level 21mmol/L (21-32) Anion Gap 25 (6-14) Blood Urea Nitrogen 29mg/dL (8-26) Creatinine 3.6mg/dL (0.7-1.3) Estimated GFR (Cockcroft-Gault) 16.1 Glucose Level 154mg/dL (70-99) Calcium Level 9.0mg/dL (8.5-10.1) Phosphorus Level 2.5mg/dL (2.6-4.7) Magnesium Level 2.1mg/dL (1.8-2.4) Albumin 2.3g/dL (3.4-5.0) Test 09/15/16 11:48 09/15/16 16:52 09/15/16 20:36 09/16/16 06:05 Glucose (Fingerstick) 162mg/dL (70-99) 102mg/dL (70-99) 138mg/dL (70-99) Sodium Level 138mmol/L (136-145) Potassium Level 3.9mmol/L (3.5-5.1) Chloride Level 97mmol/L (98-107) Carbon Dioxide Level 30mmol/L (21-32) Anion Gap 11 (6-14) Blood Urea Nitrogen 18mg/dL (8-26) Creatinine 2.5mg/dL (0.7-1.3) Estimated GFR (Cockcroft-Gault) 24.6 Glucose Level 115mg/dL (70-99) Calcium Level 8.4mg/dL (8.5-10.1) Phosphorus Level 2.7mg/dL (2.6-4.7) Albumin 2.2g/dL (3.4-5.0) Laboratory Tests Test 09/15/16 11:48 09/15/16 16:52 09/15/16 20:36 09/16/16 06:05 Glucose (Fingerstick) 162mg/dL (70-99) 102mg/dL (70-99) 138mg/dL (70-99) Sodium Level 138mmol/L (136-145) Potassium Level 3.9mmol/L (3.5-5.1) Chloride Level 97mmol/L (98-107) Carbon Dioxide Level 30mmol/L (21-32) Anion Gap 11 (6-14) Blood Urea Nitrogen 18mg/dL (8-26) Creatinine 2.5mg/dL (0.7-1.3) Estimated GFR (Cockcroft-Gault) 24.6 Glucose Level 115mg/dL (70-99) Calcium Level 8.4mg/dL (8.5-10.1) Phosphorus Level 2.7mg/dL (2.6-4.7) Albumin 2.2g/dL (3.4-5.0) Assessment Assessment Problems Medical Problems: (1) Open wound of scrotum Status: Acute Problems: Plan Plan of Care Problems Medical Problems: (1) Open wound of scrotum Status: Acute FILIPPO RODRIGUES MD Sep 16, 2016 09:33
--- NOTE | 2016-09-16 09:39 | PDOC ---
Infectious Disease Note Subjective Subjective Still some scrotal pain ROS ROS GEN: Denies fevers, chills, sweats HEENT: Denies blurred vision, sore throat CV: Denies chest pain RESP: Denies shortness of air, cough GI: Denies n/v/d NEURO: Denies confusion, dizziness MSK: Denies weakness, joint pain/swelling Vital Sign Vital Signs Vital Signs Date Time Temp Pulse Resp B/P Pulse Ox O2 Delivery O2 Flow Rate FiO2 09/16/16 09:28 96 Room Air 09/16/16 07:00 98.6 96 14 128/39 98.6 Physical Exam PHYSICAL EXAM GENERAL: Appears comfortable, in HD HEENT: Oral cavity dry LUNGS: Clear HEART: S1S2, no gallop, no murmur ABD: Obese, hyperactive BS, soft, no grimace to palpation. PDC intact. : Posterior penile and scrotal wounds, + thick exudate/slough, scrotal mild/ mod excoriation - better EXT: No edema, no cyanosis. LUE AV fistula, sutures intact, less erythema. 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 clean Labs Lab Laboratory Tests Test 09/15/16 11:48 09/15/16 16:52 09/15/16 20:36 09/16/16 06:05 Glucose (Fingerstick) 162mg/dL (70-99) 102mg/dL (70-99) 138mg/dL (70-99) Sodium Level 138mmol/L (136-145) Potassium Level 3.9mmol/L (3.5-5.1) Chloride Level 97mmol/L (98-107) Carbon Dioxide Level 30mmol/L (21-32) Anion Gap 11 (6-14) Blood Urea Nitrogen 18mg/dL (8-26) Creatinine 2.5mg/dL (0.7-1.3) Estimated GFR (Cockcroft-Gault) 24.6 Glucose Level 115mg/dL (70-99) Calcium Level 8.4mg/dL (8.5-10.1) Phosphorus Level 2.7mg/dL (2.6-4.7) Albumin 2.2g/dL (3.4-5.0) Objective Assessment Scrotal wound - would benefit from I and D Scrotal cellulitis - better S/p LUE Ligation 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 Pancreatic lesions on CT Plan Plan of Care Cont Vanc, Zosyn & Fluconazole. wean soon to po Await debridement Monitor labs/wounds NURIA VELEZ MD Sep 16, 2016 09:39
--- NOTE | 2016-09-16 10:05 | PDOC ---
G I PROGRESS NOTE Subjective No GI complaints. Seen in dialysis. Physical Exam Lungs clear. RRR Abdomen soft, not distended nor tender. Review of Relevant I have reviewed the following items robert (where applicable) has been applied. Labs Laboratory Tests Test 09/14/16 17:24 09/14/16 20:50 09/15/16 08:10 09/15/16 08:28 Glucose (Fingerstick) 112mg/dL (70-99) 147mg/dL (70-99) 157mg/dL (70-99) Sodium Level 146mmol/L (136-145) Potassium Level 4.7mmol/L (3.5-5.1) Chloride Level 100mmol/L (98-107) Carbon Dioxide Level 21mmol/L (21-32) Anion Gap 25 (6-14) Blood Urea Nitrogen 29mg/dL (8-26) Creatinine 3.6mg/dL (0.7-1.3) Estimated GFR (Cockcroft-Gault) 16.1 Glucose Level 154mg/dL (70-99) Calcium Level 9.0mg/dL (8.5-10.1) Phosphorus Level 2.5mg/dL (2.6-4.7) Magnesium Level 2.1mg/dL (1.8-2.4) Albumin 2.3g/dL (3.4-5.0) Test 09/15/16 11:48 09/15/16 16:52 09/15/16 20:36 09/16/16 06:05 Glucose (Fingerstick) 162mg/dL (70-99) 102mg/dL (70-99) 138mg/dL (70-99) Sodium Level 138mmol/L (136-145) Potassium Level 3.9mmol/L (3.5-5.1) Chloride Level 97mmol/L (98-107) Carbon Dioxide Level 30mmol/L (21-32) Anion Gap 11 (6-14) Blood Urea Nitrogen 18mg/dL (8-26) Creatinine 2.5mg/dL (0.7-1.3) Estimated GFR (Cockcroft-Gault) 24.6 Glucose Level 115mg/dL (70-99) Calcium Level 8.4mg/dL (8.5-10.1) Phosphorus Level 2.7mg/dL (2.6-4.7) Albumin 2.2g/dL (3.4-5.0) Laboratory Tests Test 09/15/16 11:48 09/15/16 16:52 09/15/16 20:36 09/16/16 06:05 Glucose (Fingerstick) 162mg/dL (70-99) 102mg/dL (70-99) 138mg/dL (70-99) Sodium Level 138mmol/L (136-145) Potassium Level 3.9mmol/L (3.5-5.1) Chloride Level 97mmol/L (98-107) Carbon Dioxide Level 30mmol/L (21-32) Anion Gap 11 (6-14) Blood Urea Nitrogen 18mg/dL (8-26) Creatinine 2.5mg/dL (0.7-1.3) Estimated GFR (Cockcroft-Gault) 24.6 Glucose Level 115mg/dL (70-99) Calcium Level 8.4mg/dL (8.5-10.1) Phosphorus Level 2.7mg/dL (2.6-4.7) Albumin 2.2g/dL (3.4-5.0) Microbiology 09/07/16 Blood Culture - Final, Complete NO GROWTH AFTER 5 DAYS Medications Current Medications Meropenem/Sodium Chloride (Merrem/Iv Sodium Chloride 0.9% 100ml) 100 ml @ 200 mls/hr Q8HRS IV ; Start 09/07/16 at 22:00; Status UNV Vancomycin HCl 1 each 1 each PRN DAILY PRN MC SEE COMMENTS Last administered on 09/14/16 12:04; Start 09/07/16 at 20:45 Sodium Chloride (Iv Sodium Chloride 0.9% 500ml Bag) 500 ml @ 500 mls/hr 1X ONCE IV Last administered on 09/07/16 21:04; Start 09/07/16 at 21:00; Stop at 21:59; Status DC Hydromorphone HCl 1 mg 1 mg 1X ONCE IV Last administered on 09/07/16 20:59; Start 09/07/16 at 21:00; Stop 09/07/16 at 21:01; Status DC Meropenem 500 mg/ Sodium Chloride 50 ml @ 100 mls/hr QHS IV Last administered on 09/07/16 21:05; Start 09/07/16 at 21:00; Stop 09/08/16 at 07:59; Status DC Vancomycin HCl/ Sodium Chloride (Iv Sodium Chloride 0.9% 500ml Bag) 500 ml @ 250 mls/hr 1X ONCE IV Last administered on 09/07/16 22:07; Start 09/07/16 at 21:30; Stop 09/07/16 at 23:29; Status DC Ondansetron HCl (Zofran) 4 mg PRN Q8HRS PRN IV NAUSEA/VOMITING Last administered on 09/07/16 22:43; Start 09/07/16 at 22:00; Stop 09/08/16 at 21:59 ; Status DC Morphine Sulfate 4 mg 4 mg PRN Q2HR PRN IV SEVERE PAIN Last administered on 21:12; Start 09/07/16 at 22:00; Stop 09/08/16 at 21:59; Status DC Sodium Chloride (Iv Sodium Chloride 0.9% 1000ml Bag) 1,000 ml @ 75 mls/hr [id number] IV Last administered on 09/08/16 12:56; Start 09/07/16 at 21:52; Stop 09/08/16 at 21:51; Status DC Insulin Aspart (Novolog) 0-7 UNITS TIDWMEALS SQ ; Start 09/08/16 at 08:00; Stop 09/08/16 at 08:00; Status DC Dextrose (Dextrose 50%-Water Syringe) 12.5 gm PRN Q15MIN PRN IV SEE COMMENTS Last administered on 09/08/16 21:03; Start 09/07/16 at 22:30 Allopurinol (Zyloprim) 100 mg DAILY PO Last administered on 09/12/16 13:11; Start 09/08/16 at 09:00 Apixaban (Eliquis) 2.5 mg DAILY PO Last administered on 09/08/16 07:59; Start 09/08/16 at 09:00; Stop 09/08/16 at 10:43; Status DC Atorvastatin Calcium (Lipitor) 40 mg QHS PO Last administered on 09/11/16 20: 55; Start 09/08/16 at 21:00 Carvedilol (Coreg) 3.125 mg BIDWMEALS PO Last administered on 09/10/16 18:25; Start 09/08/16 at 08:00 Cinacalcet (Sensipar) 30 mg DAILY PO Last administered on 09/12/16 13:11; Start 09/08/16 at 09:00 Glimepiride (Amaryl) 4 mg DAILY PO Last administered on 09/08/16 07:59; Start 09/08/16 at 09:00; Stop 09/09/16 at 13:46; Status DC Acetaminophen/ Hydrocodone Bitart (Lortab 5/325) 1 tab PRN Q6HRS PRN PO SEVERE PAIN Last administered on 09/09/16 06:16; Start 09/07/16 at 22:30; Stop at 14:14; Status DC Polyethylene Glycol (miraLAX PACKET) 17 gm PRN DAILY PRN PO CONSTIPATION; Start 09/07/16 at 22:30 Sevelamer Carbonate (Renvela) 2.4 gm TIDWMEALS PO Last administered on 07:59; Start 09/08/16 at 08:00; Stop 09/08/16 at 12:01; Status DC Vitamin A/Vitamin D (Vitamin A & D Ointment) 1 katie TID TP Last administered on 09/15/16 21:24; Start 09/08/16 at 09:00 Docusate Sodium (Colace) 100 mg PRN DAILY PRN PO CONSTIPATION; Start 09/07/16 at 22:45 Docusate Sodium (Colace) 100 mg DAILY PO Last administered on 09/12/16 13:10; Start 09/08/16 at 09:00 Potassium Chloride (Klor-Con) 20 meq 1X ONCE PO Last administered on 01:38; Start 09/07/16 at 23:00; Stop 09/07/16 at 23:01; Status DC Insulin Aspart (Novolog) 0-7 UNITS QIDACHS SQ Last administered on 09/13/16 17 :53; Start 09/07/16 at 22:45 Info (Anti-Coagulation Monitoring By Pharmacy) 1 each PRN DAILY PRN MC SEE COMMENTS Last administered on 09/08/16 02:30; Start 09/07/16 at 23:45 Vancomycin HCl 1 each 1 each 1X ONCE MC ; Start 09/11/16 at 21:30; Stop at 21:30; Status DC Vancomycin HCl 1.5 gm/Sodium Chloride 500 ml @ 250 mls/hr Q48H IV ; Start 09/09 at 22:00; Stop 09/09/16 at 22:00; Status DC Piperacillin Sod/ Tazobactam Sod/ Sodium Chloride (Zosyn/Iv Sodium Chloride 0.9 % 50ml) 50 ml @ 100 mls/hr Q8HRS IV Last administered on 09/10/16 06:11; Start 09/08/16 at 08:30; Stop 09/10/16 at 09:00; Status DC Fluconazole (Diflucan) 100 mg DAILY PO Last administered on 09/12/16 13:11; Start 09/08/16 at 09:00 Darbepoetin Lasha (Aranesp) 60 mcg [id number] SQ Last administered on 09/15/16 21 :23; Start 09/08/16 at 21:00 Apixaban (Eliquis) 2.5 mg BID PO Last administered on 09/13/16 19:51; Start at 21:00 Vancomycin HCl 1 each 1X ONCE MC Last administered on 09/09/16 06:00; Start 09/09/16 at 06:00; Stop 09/09/16 at 06:01; Status DC Sevelamer Carbonate (Renvela) 2,400 mg TIDWMEALS PO Last administered on 12:20; Start 09/08/16 at 12:00 Insulin Aspart (Novolog) 8 units TIDAC SQ Last administered on 09/10/16 08:41 ; Start 09/08/16 at 12:00; Stop 09/10/16 at 10:17; Status DC Lorazepam (Ativan) 0.5 mg PRN Q6HRS PRN PO ANXIETY / AGITATION Last administered on 09/11/16 11:45; Start 09/08/16 at 13:00 Fentanyl Citrate (Fentanyl 2ml Vial) 25 mcg PRN Q5MIN PRN IV MILD PAIN; Start 09/09/16 at 07:00; Stop 09/10/16 at 06:59; Status DC Fentanyl Citrate (Fentanyl 2ml Vial) 50 mcg PRN Q5MIN PRN IV MODERATE PAIN; Start 09/09/16 at 07:00; Stop 09/10/16 at 06:59; Status DC Morphine Sulfate 1 mg PRN Q10MIN PRN IV SEVERE PAIN; Start 09/09/16 at 07:00; Stop 09/10/16 at 06:59; Status DC Lidocaine HCl 2 ml PRN 1X PRN ID PRIOR TO IV START; Start 09/09/16 at 07:00; Stop 09/10/16 at 06:59; Status DC Hydromorphone HCl (Dilaudid) 0.5 mg PRN Q10MIN PRN IV SEV PAIN, Second choice; Start 09/09/16 at 07:00; Stop 09/10/16 at 06:59; Status DC Prochlorperazine Edisylate 5 mg 5 mg PACU PRN PRN IV NAUSEA, MRX1; Start at 07:00; Stop 09/10/16 at 06:59; Status DC Sodium Chloride (Iv Sodium Chloride 0.9% 1000ml Bag) 1,000 ml @ 0 mls/hr Q0M IV ; Start 09/09/16 at 12:00; Stop 09/10/16 at 10:51; Status DC Morphine Sulfate 4 mg PRN Q2HR PRN IV SEVERE PAIN Last administered on 10:43; Start 09/09/16 at 01:00; Stop 09/11/16 at 15:23; Status DC Lidocaine HCl 30 ml STK-MED ONCE .ROUTE ; Start 09/09/16 at 07:12; Stop at 07:13; Status DC Cellulose 1 each STK-MED ONCE .ROUTE ; Start 09/09/16 at 07:12; Stop 09/09/16 at 07:13; Status DC Papaverine HCl 60 mg 60 mg STK-MED ONCE .ROUTE ; Start 09/09/16 at 07:13; Stop 09/09/16 at 07:14; Status DC Sodium Chloride 1,000 ml @ 1,000 mls/hr Q1H PRN IV hypotension; Start 09/09/16 at 07:30; Stop 09/09/16 at 13:29; Status DC Albumin Human (Albuminar) 200 ml @ 200 mls/hr 1X PRN PRN IV Hypotension Last administered on 4/19/17at 09:37; Start 09/09/16 at 07:30; Stop 09/09/16 at 13:29 ; Status DC Acetaminophen (Tylenol) 500 mg 1X PRN PRN PO MILD PAIN / TEMP; Start 09/09/16 at 07:30; Stop 09/10/16 at 07:29; Status DC Diphenhydramine HCl (Benadryl) 25 mg 1X PRN PRN IV ITCHING; Start 09/09/16 at 07:30; Stop 09/10/16 at 07:29; Status DC Diphenhydramine HCl (Benadryl) 25 mg 1X PRN PRN IV ITCHING; Start 09/09/16 at 07:30; Stop 09/10/16 at 07:29; Status DC Labetalol HCl (Normodyne) 10 mg PRN Q1HR PRN IVP SBP > 180; Start 09/09/16 at 07:30; Stop 09/10/16 at 07:29; Status DC Clonidine HCl 0.1 mg 0.1 mg 1X PRN PRN PO SBP > 180; Start 09/09/16 at 07:30; Stop 09/10/16 at 07:29; Status DC Sodium Chloride (Iv Sodium Chloride 0.9% 1000ml Bag) 1,000 ml @ 400 mls/hr Q2H30M PRN IV PATENCY; Start 09/09/16 at 07:30; Stop 09/09/16 at 19:29; Status DC Info 1 each 1 each PRN DAILY PRN MC SEE COMMENTS; Start 09/09/16 at 07:30; Stop 09/14/16 at 10:15; Status DC Heparin Sodium (Porcine) 5000 unit/Sodium Chloride 505 ml @ 505 mls/hr 1X PERIOP ONCE IRR ; Start 09/09/16 at 09:00; Stop 09/09/16 at 09:59; Status DC Cefazolin Sodium 1 gm/Sodium Chloride 500 ml @ 500 mls/hr 1X PERIOP ONCE IRR ; Start 09/09/16 at 09:00; Stop 09/09/16 at 09:59; Status DC Cefazolin Sodium (Ancef 1gm Ivpb For Omni) 0 ml @ As Directed STK-MED ONCE IV ; Start 09/09/16 at 13:23; Stop 09/09/16 at 13:24; Status DC Acetaminophen/ Hydrocodone Bitart (Lortab 5/325) 1 tab PRN Q4HRS PRN PO PAIN; Start 09/09/16 at 14:15; Stop 09/11/16 at 11:52; Status DC Acetaminophen/ Hydrocodone Bitart (Lortab 5/325) 2 tab PRN Q4HRS PRN PO PAIN Last administered on 09/11/16 04:49; Start 09/09/16 at 14:15; Stop 09/11/16 at 11:52; Status DC Midazolam HCl (Versed) 2 mg STK-MED ONCE .ROUTE ; Start 09/09/16 at 14:06; Stop 09/09/16 at 14:07; Status DC Fentanyl Citrate 100 mcg 100 mcg STK-MED ONCE .ROUTE ; Start 09/09/16 at 14:06; Stop 09/09/16 at 14:07; Status DC Vancomycin HCl/ Sodium Chloride (Iv Sodium Chloride 0.9% 100ml) 100 ml @ 100 mls/hr QMWF IV Last administered on 09/09/16 17:36; Start 09/09/16 at 16:00; Stop 09/11/16 at 15:32; Status DC Lidocaine HCl 20 ml STK-MED ONCE .ROUTE ; Start 09/09/16 at 14:11; Stop at 14:12; Status DC Lidocaine HCl 20 ml STK-MED ONCE .ROUTE ; Start 09/09/16 at 14:11; Stop at 14:12; Status DC Cellulose 1 each STK-MED ONCE .ROUTE ; Start 09/09/16 at 14:12; Stop 09/09/16 at 14:13; Status DC Papaverine HCl 60 mg 60 mg STK-MED ONCE .ROUTE ; Start 09/09/16 at 14:12; Stop 09/09/16 at 14:13; Status DC Propofol (Diprivan) 20 ml @ As Directed STK-MED ONCE IV ; Start 09/09/16 at 14: 51; Stop 09/09/16 at 14:52; Status DC Amoxicillin/ Clavulanate Potassium (Augmentin 500/ 125mg) 1 tab DAILY PO Last administered on 09/10/16 10:43; Start 09/10/16 at 10:00; Stop 09/11/16 at 10:47 ; Status DC Insulin Aspart (Novolog) 5 units TIDAC SQ Last administered on 09/13/16 17:51 ; Start 09/10/16 at 11:30 Insulin Detemir (Levemir) 10 units QHS SQ Last administered on 09/10/16 21:46 ; Start 09/10/16 at 21:00; Stop 09/11/16 at 10:42; Status DC Sodium Thiosulfate 25 gm 25 gm 3X/WEEK IV ; Start 09/11/16 at 09:00; Status UNV Magnesium Sulfate/ Dextrose 50 ml @ 25 mls/hr PRN DAILY PRN IV for Mag < 1.7 on am labs; Start 09/10/16 at 10:45 Sodium Thiosulfate 25 gm/ Sodium Chloride 100 ml @ 100 mls/hr 3X/WEEK@16 IV Last administered on 09/14/16 16:00; Start 09/11/16 at 16:00 Amino Acids/ Glycerin/ Electrolytes (Procalamine) 1,000 ml @ 80 mls/hr [id number] IV Last administered on 09/16/16 02:18; Start 09/10/16 at 11:30 Fentanyl Citrate (Fentanyl 2ml Vial) 25 mcg PRN Q2HR PRN IV PAIN Last administered on 09/13/16 17:02; Start 09/10/16 at 13:00; Stop 09/13/16 at 18:42 ; Status DC Albuterol Sulfate (Ventolin Neb Soln) 2.5 mg PRN Q4HRS PRN NEB SHORTNESS OF BREATH Last administered on 09/12/16 08:56; Start 09/10/16 at 13:30 Tramadol HCl (Ultram) 50 mg PRN Q6HRS PRN PO PAIN Last administered on 08:39; Start 09/10/16 at 13:45 Ondansetron HCl (Zofran) 4 mg PRN Q6HRS PRN IV NAUSEA/VOMITING Last administered on 09/11/16 08:39; Start 09/10/16 at 19:15 Calcium Carbonate/ Glycine (Tums) 500 mg TID PRN PO INDIGESTION; Start at 19:15 Pantoprazole Sodium (Protonix) 40 mg DAILYAC PO Last administered on 09/11/16 08:38; Start 09/10/16 at 20:00 Prochlorperazine Edisylate (Compazine) 10 mg PRN Q6HRS PRN IV NAUSEA/VOMITING Last administered on 09/11/16 10:49; Start 09/11/16 at 10:30 Insulin Detemir (Levemir) 15 units QHS SQ Last administered on 09/15/16 21:42 ; Start 09/11/16 at 21:00 Metoclopramide HCl 5 mg 5 mg PRN Q6HRS PRN IV NAUSEA/VOMITING Last administered on 09/11/16 20:55; Start 09/11/16 at 10:45 Piperacillin Sod/ Tazobactam Sod/ Sodium Chloride (Zosyn/Iv Sodium Chloride 0.9 % 50ml) 50 ml @ 100 mls/hr Q8HRS IV Last administered on 09/16/16 06:19; Start 09/11/16 at 14:00 Oxycodone/ Acetaminophen 1 tab 1 tab PRN Q4HRS PRN PO PAIN Last administered on 09/13/16 19:51; Start 09/11/16 at 12:00 Sodium Thiosulfate/ Sodium Chloride (Sodium Thiosulfate/Iv Sodium Chloride 0.9% 100ml) 100 ml @ 100 mls/hr 1X ONCE IV Last administered on 09/12/16 16:00; Start 09/12/16 at 16:00; Stop 09/12/16 at 16:59; Status DC Lorazepam (Ativan) 1 mg 1X ONCE IV ; Start 09/11/16 at 18:00; Stop 09/11/16 at 18:01; Status DC Haloperidol Lactate (Haldol) 2 mg PRN Q24HRS PRN IVP AGITATION Last administered on 09/14/16 11:04; Start 09/11/16 at 18:00; Stop 09/14/16 at 15:06 ; Status DC Lorazepam 1 mg 1 mg 1X ONCE IV Last administered on 09/12/16 03:14; Start at 01:00; Stop 09/12/16 at 01:01; Status DC Sodium Chloride (Iv Sodium Chloride 0.9% 1000ml Bag) 1,000 ml @ 1,000 mls/hr Q1H PRN IV hypotension; Start 09/12/16 at 08:00; Stop 09/12/16 at 13:59; Status DC Diphenhydramine HCl 50 mg 50 mg 1X PRN PRN IV ITCHING Last administered on 09/12 09:06; Start 09/12/16 at 08:45; Stop 09/12/16 at 16:00; Status DC Sodium Chloride (Iv Sodium Chloride 0.9% 1000ml Bag) 1,000 ml @ 400 mls/hr Q2H30M PRN IV PATENCY; Start 09/12/16 at 08:00; Stop 09/12/16 at 19:59; Status DC Info (PHARMACY MONITORING -- do not chart) 1 each PRN DAILY PRN MC SEE COMMENTS ; Start 09/12/16 at 08:45; Status UNV Lorazepam 0.5 mg 0.5 mg PRN Q6HRS PRN IV ANXIETY / AGITATION Last administered on 09/14/16 23:37; Start 09/12/16 at 11:00 Vancomycin HCl/ Sodium Chloride (Iv Sodium Chloride 0.9% 100ml) 100 ml @ 100 mls/hr 1X ONCE IV Last administered on 09/12/16 14:40; Start 09/12/16 at 13: 00; Stop 09/12/16 at 13:59; Status DC Fentanyl Citrate (Fentanyl 2ml Vial) 50 mcg PRN Q2HR PRN IV PAIN Last administered on 09/16/16 04:29; Start 09/13/16 at 18:45 Morphine Sulfate 1 mg PRN Q2HR PRN IV PAIN Last administered on 09/15/16 08:51 ; Start 09/13/16 at 18:45; Stop 09/15/16 at 10:39; Status DC Lidocaine (Lidoderm) 1 patch DAILY TD ; Start 09/13/16 at 19:00; Stop 09/13/16 at 19:16; Status DC Lidocaine HCl 1 katie 1 katie TID TP Last administered on 09/15/16 21:23; Start at 21:00 Sodium Chloride (Iv Sodium Chloride 0.9% 1000ml Bag) 1,000 ml @ 1,000 mls/hr Q1H PRN IV hypotension; Start 09/14/16 at 10:06; Stop 09/14/16 at 16:05; Status DC Sodium Chloride (Normal Saline Flush) 10 ml 1X PRN PRN IV AP catheter pack; Start 09/14/16 at 10:15; Stop 09/15/16 at 10:14; Status DC Sodium Chloride 10 ml 10 ml 1X PRN PRN IV [employer]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; Start 09/14/16 at 10:15; Stop 09/15/16 at 10:14; Status DC Sodium Chloride (Iv Sodium Chloride 0.9% 1000ml Bag) 1,000 ml @ 400 mls/hr Q2H30M PRN IV PATENCY; Start 09/14/16 at 10:06; Stop 09/14/16 at 22:05; Status DC Info 1 each 1 each PRN DAILY PRN MC SEE COMMENTS; Start 09/14/16 at 10:15 Vancomycin HCl 500 mg/Sodium Chloride 100 ml @ 100 mls/hr 1X ONCE IV Last administered on 09/14/16 15:30; Start 09/14/16 at 13:00; Stop 09/14/16 at 13:59 ; Status DC Vancomycin HCl/ Sodium Chloride (Iv Sodium Chloride 0.9% 100ml) 100 ml @ 100 mls/hr QMWF IV ; Start 09/16/16 at 16:00 Haloperidol Lactate (Haldol) 2 mg PRN Q6HRS PRN IVP AGITATION Last administered on 09/16/16 06:27; Start 09/14/16 at 18:00 Fentanyl (Duragesic 50mcg/ Hr Patch) 1 patch Q3DAYS TD Last administered on 12:25; Start 09/15/16 at 11:00; Stop 09/15/16 at 16:57; Status DC Haloperidol Lactate 5 mg 5 mg PRN Q6HRS PRN IVP AGITATION Last administered on 09/15/16 12:20; Start 09/15/16 at 12:15 Sodium Chloride 1,000 ml @ 1,000 mls/hr Q1H PRN IV hypotension; Start 09/15/16 at 12:16; Stop 09/15/16 at 18:15; Status DC Albumin Human (Albuminar) 200 ml @ 200 mls/hr 1X PRN PRN IV Hypotension; Start 09/15/16 at 12:30; Stop 09/15/16 at 18:29; Status DC Acetaminophen (Tylenol) 500 mg 1X PRN PRN PO MILD PAIN / TEMP; Start 09/15/16 at 12:30; Stop 09/16/16 at 12:29 Diphenhydramine HCl (Benadryl) 25 mg 1X PRN PRN IV ITCHING; Start 09/15/16 at 12:30; Stop 09/16/16 at 12:29 Diphenhydramine HCl (Benadryl) 25 mg 1X PRN PRN IV ITCHING; Start 09/15/16 at 12:30; Stop 09/16/16 at 12:29 Labetalol HCl (Normodyne) 10 mg PRN Q1HR PRN IVP SBP > 180; Start 09/15/16 at 12:30; Stop 09/16/16 at 12:29 Clonidine HCl 0.1 mg 0.1 mg 1X PRN PRN PO SBP > 180; Start 09/15/16 at 12:30; Stop 09/16/16 at 12:29 Sodium Chloride (Iv Sodium Chloride 0.9% 1000ml Bag) 1,000 ml @ 400 mls/hr Q2H30M PRN IV PATENCY; Start 09/15/16 at 12:16; Stop 09/16/16 at 00:15; Status DC Info (PHARMACY MONITORING -- do not chart) 1 each PRN DAILY PRN MC SEE COMMENTS ; Start 09/15/16 at 12:30; Status UNV Fentanyl 1 patch 1 patch Q3DAYS TD Last administered on 09/15/16t 17:26; Start 09/15/16 at 17:00 Sodium Chloride 1,000 ml @ 1,000 mls/hr Q1H PRN IV hypotension; Start 09/16/16 at 08:34; Stop 09/16/16 at 14:33 Albumin Human (Albuminar) 200 ml @ 200 mls/hr 1X PRN PRN IV Hypotension; Start 09/16/16 at 08:45; Stop 09/16/16 at 14:44 Acetaminophen (Tylenol) 500 mg 1X PRN PRN PO MILD PAIN / TEMP; Start 09/16/16 at 08:45; Stop 09/17/16 at 08:44 Diphenhydramine HCl (Benadryl) 25 mg 1X PRN PRN IV ITCHING; Start 09/16/16 at 08:45; Stop 09/17/16 at 08:44 Diphenhydramine HCl (Benadryl) 25 mg 1X PRN PRN IV ITCHING; Start 09/16/16 at 08:45; Stop 09/17/16 at 08:44 Labetalol HCl (Normodyne) 10 mg PRN Q1HR PRN IVP SBP > 180; Start 09/16/16 at 08:45; Stop 09/17/16 at 08:44 Clonidine HCl 0.1 mg 0.1 mg 1X PRN PRN PO SBP > 180; Start 09/16/16 at 08:45; Stop 09/17/16 at 08:44 Sodium Chloride (Iv Sodium Chloride 0.9% 1000ml Bag) 1,000 ml @ 400 mls/hr Q2H30M PRN IV PATENCY; Start 09/16/16 at 08:34; Stop 09/16/16 at 20:33 Info (PHARMACY MONITORING -- do not chart) 1 each PRN DAILY PRN MC SEE COMMENTS ; Start 09/16/16 at 08:45; Status UNV Active Scripts Active Mupirocin Ointment (Mupirocin) 22 Gm Oint...g. 1 Katie TP TID Vitamin A & D Ointment (Vits A & D/White Pet/Lanolin) 56.7 Gm Oint...g. 1 Katie TP TID Diflucan (Fluconazole) 100 Mg Tablet 100 Mg PO DAILY Allopurinol 100 Mg Tablet 100 Mg PO DAILY Hydrocodone-Apap 5-325 (Hydrocodone Bit/Acetaminophen) 1 Each Tablet 1 Tab PO Q6HRS PRN Eliquis (Apixaban) 2.5 Mg Tablet 2.5 Mg PO DAILY Renvela (Sevelamer Carbonate) 2.4 Gm Powd.pack 2.4 Gm PO TIDWMEALS Miralax (Polyethylene Glycol 3350) 17 Gm Powd.pack 17 Gm PO PRN DAILY PRN Carvedilol 3.125 Mg Tablet 3.125 Mg PO BIDWMEALS Reported Sensipar (Cinacalcet Hcl) 30 Mg Tablet 1 Tab PO DAILY Glimepiride 2 Mg Tablet 4 Mg PO DAILY Novolog (Insulin Aspart) 100 Unit/1 Ml Cartridge 8 Unit SQ TIDAC Atorvastatin Calcium 40 Mg Tablet 1 Tab PO DAILY Vitals/I & O Vital Sign - Last 24 Hours 09/15/16 09/15/16 09/15/16 09/15/16 12:25 12:34 16:31 17:00 Temp 97.2 97.2 Pulse 100 100 Resp 22 B/P 116/50 116/50 Pulse Ox 90 O2 Delivery Room Air Room Air Room Air 09/15/16 09/15/16 09/15/16 09/15/16 17:26 19:00 19:25 21:30 Temp 98.0 98.0 Pulse 96 Resp 18 20 B/P 129/60 Pulse Ox 99 95 O2 Delivery Room Air Room Air Room Air Room Air 09/15/16 09/15/16 09/16/16 09/16/16 21:30 23:00 01:16 03:00 Temp 98.2 98.1 98.2 98.1 Pulse 85 79 Resp 20 18 20 18 B/P 120/54 133/70 Pulse Ox 99 95 95 94 O2 Delivery Room Air Room Air Room Air Room Air 09/16/16 09/16/16 09/16/16 09/16/16 04:29 05:00 07:00 09:28 Temp 98.6 98.6 Pulse 96 Resp 20 20 14 B/P 128/39 Pulse Ox 94 94 98 96 O2 Delivery Room Air Room Air Room Air Room Air Intake and Output 09/15/16 09/15/16 09/16/16 15:00 23:00 07:00 Intake Total 750 ml 689 ml Output Total 0 ml Balance 750 ml 689 ml Problem List Problems Medical Problems: (1) Open wound of scrotum Status: Acute Assessment Pancreatic lesions, small. Don't see need to aggressively investigate at this point, given other issues. Plan of Care: Continue current Tx, Mgmt Plan of Care Note Will stand by. KIMBERLY CLARKE MD Sep 16, 2016 10:05
[2016-09-16 11:35] VITALS: BP 169/85
[2016-09-16] MEDS: LIDOCAINE 2% TOPICAL JELLY 30GM TUBE. TP SCH ×3 (11:38→20:37)
[2016-09-16] MEDS: VITS A & D/LANOLIN TOPICAL OINTMENT 56GM TUBE. TP SCH ×3 (11:38→20:37)
[2016-09-16] MEDS: APIXABAN 2.5 MG TABLET. PO SCH ×2 (11:40→20:31)
[2016-09-16] MEDS: CINACALCET HCL 30 MG TABLET PO SCH (11:40)
[2016-09-16] MEDS: CARVEDILOL 3.125 MG TABLET. PO SCH ×2 (11:40→16:32)
[2016-09-16] MEDS: DOCUSATE SODIUM 100 MG CAPSULE. PO SCH (11:40)
[2016-09-16] MEDS: FLUCONAZOLE 100 MG TABLET. PO SCH (11:40)
[2016-09-16] MEDS: ALLOPURINOL 100 MG TABLET. PO SCH (11:40)
[2016-09-16] MEDS: NYSTATIN 100,000 UNITS/ML 5 ML ORAL.SUSP. SWSW SCH ×3 (14:10→20:38)
--- NOTE | 2016-09-16 14:42 | PDOC ---
PROGRESS NOTES Chief Complaint Chief Complaint Scrotal cellulitis open wound 1. 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 on zosyn and vanco, diflucan. wound debridement in OR by Dr Arellano today 2. Pain control: on low dose fentanyl patch 3. 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 4. left arm AVF 3weeks, with steal syndrome, better with AVF ligation 09/09 5. hypokalemia: resolved; now borderline high. monitor 5. Anemia: stable. CKD induced. in EPO w/HD 6. DM2, mod control 7. CAD: S/P CABG in 2004. no acute issues. cont home meds 8. pAFib: rate controlled on low dose carvedilol only 9. OAC: on eliquis 10. dementia, mild 11. delirium, likely 2/2 uremia with sepsis some sundowning previously 12. abn CT findings: 2 pancreatic lesions, adrenal lesion 3.8cm, stable. CA19.9 WNL. d/ 13. Palliative consult: DNR/DNI, History of Present Illness History of Present Illness no event debridement planned cont other . Vitals Vitals Vital Signs Date Time Temp Pulse Resp B/P Pulse Ox O2 Delivery O2 Flow Rate FiO2 09/16/16 11:40 99 169/85 09/16/16 11:35 98.1 20 96 Room Air 98.1 Physical Exam General: Alert, Cooperative, No acute distress, Other (sleeping) Heart: Normal S1, Normal S2 Lungs: Clear Abdomen: Soft Extremities: No edema, Other (bilateral distal necrotic areas compatible with calciphylaxis) Skin: Other Labs LABS Laboratory Tests Test 09/15/16 16:52 09/15/16 20:36 09/16/16 06:05 09/16/16 11:43 Glucose (Fingerstick) 102mg/dL (70-99) 138mg/dL (70-99) 80mg/dL (70-99) Sodium Level 138mmol/L (136-145) Potassium Level 3.9mmol/L (3.5-5.1) Chloride Level 97mmol/L (98-107) Carbon Dioxide Level 30mmol/L (21-32) Anion Gap 11 (6-14) Blood Urea Nitrogen 18mg/dL (8-26) Creatinine 2.5mg/dL (0.7-1.3) Estimated GFR (Cockcroft-Gault) 24.6 Glucose Level 115mg/dL (70-99) Calcium Level 8.4mg/dL (8.5-10.1) Phosphorus Level 2.7mg/dL (2.6-4.7) Albumin 2.2g/dL (3.4-5.0) Assessment and Plan Assessmemt and Plan Problems Medical Problems: (1) Open wound of scrotum Status: Acute Problems: Comment Review of Relevant I have reviewed the following items robert (where applicable) has been applied. Labs Laboratory Tests Test 09/14/16 17:24 09/14/16 20:50 09/15/16 08:10 09/15/16 08:28 Glucose (Fingerstick) 112mg/dL (70-99) 147mg/dL (70-99) 157mg/dL (70-99) Sodium Level 146mmol/L (136-145) Potassium Level 4.7mmol/L (3.5-5.1) Chloride Level 100mmol/L (98-107) Carbon Dioxide Level 21mmol/L (21-32) Anion Gap 25 (6-14) Blood Urea Nitrogen 29mg/dL (8-26) Creatinine 3.6mg/dL (0.7-1.3) Estimated GFR (Cockcroft-Gault) 16.1 Glucose Level 154mg/dL (70-99) Calcium Level 9.0mg/dL (8.5-10.1) Phosphorus Level 2.5mg/dL (2.6-4.7) Magnesium Level 2.1mg/dL (1.8-2.4) Albumin 2.3g/dL (3.4-5.0) Test 09/15/16 11:48 09/15/16 16:52 09/15/16 20:36 09/16/16 06:05 Glucose (Fingerstick) 162mg/dL (70-99) 102mg/dL (70-99) 138mg/dL (70-99) Sodium Level 138mmol/L (136-145) Potassium Level 3.9mmol/L (3.5-5.1) Chloride Level 97mmol/L (98-107) Carbon Dioxide Level 30mmol/L (21-32) Anion Gap 11 (6-14) Blood Urea Nitrogen 18mg/dL (8-26) Creatinine 2.5mg/dL (0.7-1.3) Estimated GFR (Cockcroft-Gault) 24.6 Glucose Level 115mg/dL (70-99) Calcium Level 8.4mg/dL (8.5-10.1) Phosphorus Level 2.7mg/dL (2.6-4.7) Albumin 2.2g/dL (3.4-5.0) Test 09/16/16 11:43 Glucose (Fingerstick) 80mg/dL (70-99) Laboratory Tests Test 09/15/16 16:52 09/15/16 20:36 09/16/16 06:05 09/16/16 11:43 Glucose (Fingerstick) 102mg/dL (70-99) 138mg/dL (70-99) 80mg/dL (70-99) Sodium Level 138mmol/L (136-145) Potassium Level 3.9mmol/L (3.5-5.1) Chloride Level 97mmol/L (98-107) Carbon Dioxide Level 30mmol/L (21-32) Anion Gap 11 (6-14) Blood Urea Nitrogen 18mg/dL (8-26) Creatinine 2.5mg/dL (0.7-1.3) Estimated GFR (Cockcroft-Gault) 24.6 Glucose Level 115mg/dL (70-99) Calcium Level 8.4mg/dL (8.5-10.1) Phosphorus Level 2.7mg/dL (2.6-4.7) Albumin 2.2g/dL (3.4-5.0) Microbiology 09/07/16 Blood Culture - Final, Complete NO GROWTH AFTER 5 DAYS Medications Current Medications Meropenem/Sodium Chloride (Merrem/Iv Sodium Chloride 0.9% 100ml) 100 ml @ 200 mls/hr Q8HRS IV ; Start 09/07/16 at 22:00; Status UNV Vancomycin HCl 1 each 1 each PRN DAILY PRN MC SEE COMMENTS Last administered on 09/14/16t 12:04; Start 09/07/16 at 20:45 Sodium Chloride (Iv Sodium Chloride 0.9% 500ml Bag) 500 ml @ 500 mls/hr 1X ONCE IV Last administered on 09/07/16 21:04; Start 09/07/16 at 21:00; Stop at 21:59; Status DC Hydromorphone HCl 1 mg 1 mg 1X ONCE IV Last administered on 09/07/16 20:59; Start 09/07/16 at 21:00; Stop 09/07/16 at 21:01; Status DC Meropenem 500 mg/ Sodium Chloride 50 ml @ 100 mls/hr QHS IV Last administered on 09/07/16 21:05; Start 09/07/16 at 21:00; Stop 09/08/16 at 07:59; Status DC Vancomycin HCl/ Sodium Chloride (Iv Sodium Chloride 0.9% 500ml Bag) 500 ml @ 250 mls/hr 1X ONCE IV Last administered on 09/07/16 22:07; Start 09/07/16 at 21:30; Stop 09/07/16 at 23:29; Status DC Ondansetron HCl (Zofran) 4 mg PRN Q8HRS PRN IV NAUSEA/VOMITING Last administered on 09/07/16 22:43; Start 09/07/16 at 22:00; Stop 09/08/16 at 21:59 ; Status DC Morphine Sulfate 4 mg 4 mg PRN Q2HR PRN IV SEVERE PAIN Last administered on 21:12; Start 09/07/16 at 22:00; Stop 09/08/16 at 21:59; Status DC Sodium Chloride (Iv Sodium Chloride 0.9% 1000ml Bag) 1,000 ml @ 75 mls/hr [id number] IV Last administered on 09/08/16 12:56; Start 09/07/16 at 21:52; Stop 09/08/16 at 21:51; Status DC Insulin Aspart (Novolog) 0-7 UNITS TIDWMEALS SQ ; Start 09/08/16 at 08:00; Stop 09/08/16 at 08:00; Status DC Dextrose (Dextrose 50%-Water Syringe) 12.5 gm PRN Q15MIN PRN IV SEE COMMENTS Last administered on 09/08/16 21:03; Start 09/07/16 at 22:30 Allopurinol (Zyloprim) 100 mg DAILY PO Last administered on 09/16/16 11:40; Start 09/08/16 at 09:00 Apixaban (Eliquis) 2.5 mg DAILY PO Last administered on 09/08/16 07:59; Start 09/08/16 at 09:00; Stop 09/08/16 at 10:43; Status DC Atorvastatin Calcium (Lipitor) 40 mg QHS PO Last administered on 09/11/16 20: 55; Start 09/08/16 at 21:00 Carvedilol (Coreg) 3.125 mg BIDWMEALS PO Last administered on 09/16/16 11:40; Start 09/08/16 at 08:00 Cinacalcet (Sensipar) 30 mg DAILY PO Last administered on 09/16/16 11:40; Start 09/08/16 at 09:00 Glimepiride (Amaryl) 4 mg DAILY PO Last administered on 09/08/16 07:59; Start 09/08/16 at 09:00; Stop 09/09/16 at 13:46; Status DC Acetaminophen/ Hydrocodone Bitart (Lortab 5/325) 1 tab PRN Q6HRS PRN PO SEVERE PAIN Last administered on 09/09/16 06:16; Start 09/07/16 at 22:30; Stop at 14:14; Status DC Polyethylene Glycol (miraLAX PACKET) 17 gm PRN DAILY PRN PO CONSTIPATION; Start 09/07/16 at 22:30 Sevelamer Carbonate (Renvela) 2.4 gm TIDWMEALS PO Last administered on 07:59; Start 09/08/16 at 08:00; Stop 09/08/16 at 12:01; Status DC Vitamin A/Vitamin D (Vitamin A & D Ointment) 1 katie TID TP Last administered on 09/16/16 14:13; Start 09/08/16 at 09:00 Docusate Sodium (Colace) 100 mg PRN DAILY PRN PO CONSTIPATION; Start 09/07/16 at 22:45 Docusate Sodium (Colace) 100 mg DAILY PO Last administered on 09/16/16 11:40; Start 09/08/16 at 09:00 Potassium Chloride (Klor-Con) 20 meq 1X ONCE PO Last administered on 01:38; Start 09/07/16 at 23:00; Stop 09/07/16 at 23:01; Status DC Insulin Aspart (Novolog) 0-7 UNITS QIDACHS SQ Last administered on 09/13/16 17 :53; Start 09/07/16 at 22:45 Info (Anti-Coagulation Monitoring By Pharmacy) 1 each PRN DAILY PRN MC SEE COMMENTS Last administered on 09/08/16 02:30; Start 09/07/16 at 23:45 Vancomycin HCl 1 each 1 each 1X ONCE MC ; Start 09/11/16 at 21:30; Stop at 21:30; Status DC Vancomycin HCl 1.5 gm/Sodium Chloride 500 ml @ 250 mls/hr Q48H IV ; Start 09/09 at 22:00; Stop 09/09/16 at 22:00; Status DC Piperacillin Sod/ Tazobactam Sod/ Sodium Chloride (Zosyn/Iv Sodium Chloride 0.9 % 50ml) 50 ml @ 100 mls/hr Q8HRS IV Last administered on 09/10/16 06:11; Start 09/08/16 at 08:30; Stop 09/10/16 at 09:00; Status DC Fluconazole (Diflucan) 100 mg DAILY PO Last administered on 09/16/16 11:40; Start 09/08/16 at 09:00 Darbepoetin Lasha (Aranesp) 60 mcg [id number] SQ Last administered on 09/15/16 21 :23; Start 09/08/16 at 21:00 Apixaban (Eliquis) 2.5 mg BID PO Last administered on 09/16/16 11:40; Start at 21:00 Vancomycin HCl 1 each 1X ONCE MC Last administered on 09/09/16 06:00; Start 09/09/16 at 06:00; Stop 09/09/16 at 06:01; Status DC Sevelamer Carbonate (Renvela) 2,400 mg TIDWMEALS PO Last administered on 11:59; Start 09/08/16 at 12:00 Insulin Aspart (Novolog) 8 units TIDAC SQ Last administered on 09/10/16 08:41 ; Start 09/08/16 at 12:00; Stop 09/10/16 at 10:17; Status DC Lorazepam (Ativan) 0.5 mg PRN Q6HRS PRN PO ANXIETY / AGITATION Last administered on 09/11/16 11:45; Start 09/08/16 at 13:00 Fentanyl Citrate (Fentanyl 2ml Vial) 25 mcg PRN Q5MIN PRN IV MILD PAIN; Start 09/09/16 at 07:00; Stop 09/10/16 at 06:59; Status DC Fentanyl Citrate (Fentanyl 2ml Vial) 50 mcg PRN Q5MIN PRN IV MODERATE PAIN; Start 09/09/16 at 07:00; Stop 09/10/16 at 06:59; Status DC Morphine Sulfate 1 mg PRN Q10MIN PRN IV SEVERE PAIN; Start 09/09/16 at 07:00; Stop 09/10/16 at 06:59; Status DC Lidocaine HCl 2 ml PRN 1X PRN ID PRIOR TO IV START; Start 09/09/16 at 07:00; Stop 09/10/16 at 06:59; Status DC Hydromorphone HCl (Dilaudid) 0.5 mg PRN Q10MIN PRN IV SEV PAIN, Second choice; Start 09/09/16 at 07:00; Stop 09/10/16 at 06:59; Status DC Prochlorperazine Edisylate 5 mg 5 mg PACU PRN PRN IV NAUSEA, MRX1; Start at 07:00; Stop 09/10/16 at 06:59; Status DC Sodium Chloride (Iv Sodium Chloride 0.9% 1000ml Bag) 1,000 ml @ 0 mls/hr Q0M IV ; Start 09/09/16 at 12:00; Stop 09/10/16 at 10:51; Status DC Morphine Sulfate 4 mg PRN Q2HR PRN IV SEVERE PAIN Last administered on 10:43; Start 09/09/16 at 01:00; Stop 09/11/16 at 15:23; Status DC Lidocaine HCl 30 ml STK-MED ONCE .ROUTE ; Start 09/09/16 at 07:12; Stop at 07:13; Status Cancel Cellulose 1 each STK-MED ONCE .ROUTE ; Start 09/09/16 at 07:12; Stop 09/09/16 at 07:13; Status Cancel Papaverine HCl 60 mg 60 mg STK-MED ONCE .ROUTE ; Start 09/09/16 at 07:13; Stop 09/09/16 at 07:14; Status Cancel Sodium Chloride 1,000 ml @ 1,000 mls/hr Q1H PRN IV hypotension; Start 09/09/16 at 07:30; Stop 09/09/16 at 13:29; Status DC Albumin Human (Albuminar) 200 ml @ 200 mls/hr 1X PRN PRN IV Hypotension Last administered on 09/09/16t 09:37; Start 09/09/16 at 07:30; Stop 09/09/16 at 13:29 ; Status DC Acetaminophen (Tylenol) 500 mg 1X PRN PRN PO MILD PAIN / TEMP; Start 09/09/16 at 07:30; Stop 09/10/16 at 07:29; Status DC Diphenhydramine HCl (Benadryl) 25 mg 1X PRN PRN IV ITCHING; Start 09/09/16 at 07:30; Stop 09/10/16 at 07:29; Status DC Diphenhydramine HCl (Benadryl) 25 mg 1X PRN PRN IV ITCHING; Start 09/09/16 at 07:30; Stop 09/10/16 at 07:29; Status DC Labetalol HCl (Normodyne) 10 mg PRN Q1HR PRN IVP SBP > 180; Start 09/09/16 at 07:30; Stop 09/10/16 at 07:29; Status DC Clonidine HCl 0.1 mg 0.1 mg 1X PRN PRN PO SBP > 180; Start 09/09/16 at 07:30; Stop 09/10/16 at 07:29; Status DC Sodium Chloride (Iv Sodium Chloride 0.9% 1000ml Bag) 1,000 ml @ 400 mls/hr Q2H30M PRN IV PATENCY; Start 09/09/16 at 07:30; Stop 09/09/16 at 19:29; Status DC Info 1 each 1 each PRN DAILY PRN MC SEE COMMENTS; Start 09/09/16 at 07:30; Stop 09/14/16 at 10:15; Status DC Heparin Sodium (Porcine) 5000 unit/Sodium Chloride 505 ml @ 505 mls/hr 1X PERIOP ONCE IRR ; Start 09/09/16 at 09:00; Stop 09/09/16 at 09:59; Status DC Cefazolin Sodium 1 gm/Sodium Chloride 500 ml @ 500 mls/hr 1X PERIOP ONCE IRR ; Start 09/09/16 at 09:00; Stop 09/09/16 at 09:59; Status DC Cefazolin Sodium (Ancef 1gm Ivpb For Omni) 0 ml @ As Directed STK-MED ONCE IV ; Start 09/09/16 at 13:23; Stop 09/09/16 at 13:24; Status DC Acetaminophen/ Hydrocodone Bitart (Lortab 5/325) 1 tab PRN Q4HRS PRN PO PAIN; Start 09/09/16 at 14:15; Stop 09/11/16 at 11:52; Status DC Acetaminophen/ Hydrocodone Bitart (Lortab 5/325) 2 tab PRN Q4HRS PRN PO PAIN Last administered on 09/11/16t 04:49; Start 09/09/16 at 14:15; Stop 09/11/16 at 11:52; Status DC Midazolam HCl (Versed) 2 mg STK-MED ONCE .ROUTE ; Start 09/09/16 at 14:06; Stop 09/09/16 at 14:07; Status DC Fentanyl Citrate 100 mcg 100 mcg STK-MED ONCE .ROUTE ; Start 09/09/16 at 14:06; Stop 09/09/16 at 14:07; Status DC Vancomycin HCl/ Sodium Chloride (Iv Sodium Chloride 0.9% 100ml) 100 ml @ 100 mls/hr QMWF IV Last administered on 09/09/16t 17:36; Start 09/09/16 at 16:00; Stop 09/11/16 at 15:32; Status DC Lidocaine HCl 20 ml STK-MED ONCE .ROUTE ; Start 09/09/16 at 14:11; Stop at 14:12; Status DC Lidocaine HCl 20 ml STK-MED ONCE .ROUTE ; Start 09/09/16 at 14:11; Stop at 14:12; Status Cancel Cellulose 1 each STK-MED ONCE .ROUTE ; Start 09/09/16 at 14:12; Stop 09/09/16 at 14:13; Status Cancel Papaverine HCl 60 mg 60 mg STK-MED ONCE .ROUTE ; Start 09/09/16 at 14:12; Stop 09/09/16 at 14:13; Status DC Propofol (Diprivan) 20 ml @ As Directed STK-MED ONCE IV ; Start 09/09/16 at 14: 51; Stop 09/09/16 at 14:52; Status DC Amoxicillin/ Clavulanate Potassium (Augmentin 500/ 125mg) 1 tab DAILY PO Last administered on 09/10/16 10:43; Start 09/10/16 at 10:00; Stop 09/11/16 at 10:47 ; Status DC Insulin Aspart (Novolog) 5 units TIDAC SQ Last administered on 09/13/16 17:51 ; Start 09/10/16 at 11:30 Insulin Detemir (Levemir) 10 units QHS SQ Last administered on 09/10/16 21:46 ; Start 09/10/16 at 21:00; Stop 09/11/16 at 10:42; Status DC Sodium Thiosulfate 25 gm 25 gm 3X/WEEK IV ; Start 09/11/16 at 09:00; Status UNV Magnesium Sulfate/ Dextrose 50 ml @ 25 mls/hr PRN DAILY PRN IV for Mag < 1.7 on am labs; Start 09/10/16 at 10:45 Sodium Thiosulfate 25 gm/ Sodium Chloride 100 ml @ 100 mls/hr 3X/WEEK@16 IV Last administered on 09/14/16 16:00; Start 09/11/16 at 16:00 Amino Acids/ Glycerin/ Electrolytes (Procalamine) 1,000 ml @ 80 mls/hr [id number] IV Last administered on 09/16/16 02:18; Start 09/10/16 at 11:30 Fentanyl Citrate (Fentanyl 2ml Vial) 25 mcg PRN Q2HR PRN IV PAIN Last administered on 09/13/16 17:02; Start 09/10/16 at 13:00; Stop 09/13/16 at 18:42 ; Status DC Albuterol Sulfate (Ventolin Neb Soln) 2.5 mg PRN Q4HRS PRN NEB SHORTNESS OF BREATH Last administered on 09/12/16 08:56; Start 09/10/16 at 13:30 Tramadol HCl (Ultram) 50 mg PRN Q6HRS PRN PO PAIN Last administered on 08:39; Start 09/10/16 at 13:45 Ondansetron HCl (Zofran) 4 mg PRN Q6HRS PRN IV NAUSEA/VOMITING Last administered on 09/11/16 08:39; Start 09/10/16 at 19:15 Calcium Carbonate/ Glycine (Tums) 500 mg TID PRN PO INDIGESTION; Start at 19:15 Pantoprazole Sodium (Protonix) 40 mg DAILYAC PO Last administered on 09/11/16 08:38; Start 09/10/16 at 20:00 Prochlorperazine Edisylate (Compazine) 10 mg PRN Q6HRS PRN IV NAUSEA/VOMITING Last administered on 09/11/16 10:49; Start 09/11/16 at 10:30 Insulin Detemir (Levemir) 15 units QHS SQ Last administered on 09/15/16 21:42 ; Start 09/11/16 at 21:00 Metoclopramide HCl 5 mg 5 mg PRN Q6HRS PRN IV NAUSEA/VOMITING Last administered on 09/11/16 20:55; Start 09/11/16 at 10:45 Piperacillin Sod/ Tazobactam Sod/ Sodium Chloride (Zosyn/Iv Sodium Chloride 0.9 % 50ml) 50 ml @ 100 mls/hr Q8HRS IV Last administered on 09/16/16 14:10; Start 09/11/16 at 14:00 Oxycodone/ Acetaminophen 1 tab 1 tab PRN Q4HRS PRN PO PAIN Last administered on 09/13/16 19:51; Start 09/11/16 at 12:00 Sodium Thiosulfate/ Sodium Chloride (Sodium Thiosulfate/Iv Sodium Chloride 0.9% 100ml) 100 ml @ 100 mls/hr 1X ONCE IV Last administered on 09/12/16 16:00; Start 09/12/16 at 16:00; Stop 09/12/16 at 16:59; Status DC Lorazepam (Ativan) 1 mg 1X ONCE IV ; Start 09/11/16 at 18:00; Stop 09/11/16 at 18:01; Status DC Haloperidol Lactate (Haldol) 2 mg PRN Q24HRS PRN IVP AGITATION Last administered on 09/14/16 11:04; Start 09/11/16 at 18:00; Stop 09/14/16 at 15:06 ; Status DC Lorazepam 1 mg 1 mg 1X ONCE IV Last administered on 09/12/16 03:14; Start at 01:00; Stop 09/12/16 at 01:01; Status DC Sodium Chloride (Iv Sodium Chloride 0.9% 1000ml Bag) 1,000 ml @ 1,000 mls/hr Q1H PRN IV hypotension; Start 09/12/16 at 08:00; Stop 09/12/16 at 13:59; Status DC Diphenhydramine HCl 50 mg 50 mg 1X PRN PRN IV ITCHING Last administered on 09/12 09:06; Start 09/12/16 at 08:45; Stop 09/12/16 at 16:00; Status DC Sodium Chloride (Iv Sodium Chloride 0.9% 1000ml Bag) 1,000 ml @ 400 mls/hr Q2H30M PRN IV PATENCY; Start 09/12/16 at 08:00; Stop 09/12/16 at 19:59; Status DC Info (PHARMACY MONITORING -- do not chart) 1 each PRN DAILY PRN MC SEE COMMENTS ; Start 09/12/16 at 08:45; Status UNV Lorazepam 0.5 mg 0.5 mg PRN Q6HRS PRN IV ANXIETY / AGITATION Last administered on 09/14/16 23:37; Start 09/12/16 at 11:00 Vancomycin HCl/ Sodium Chloride (Iv Sodium Chloride 0.9% 100ml) 100 ml @ 100 mls/hr 1X ONCE IV Last administered on 09/12/16 14:40; Start 09/12/16 at 13: 00; Stop 09/12/16 at 13:59; Status DC Fentanyl Citrate (Fentanyl 2ml Vial) 50 mcg PRN Q2HR PRN IV PAIN Last administered on 09/16/16 12:03; Start 09/13/16 at 18:45 Morphine Sulfate 1 mg PRN Q2HR PRN IV PAIN Last administered on 09/15/16 08:51 ; Start 09/13/16 at 18:45; Stop 09/15/16 at 10:39; Status DC Lidocaine (Lidoderm) 1 patch DAILY TD ; Start 09/13/16 at 19:00; Stop 09/13/16 at 19:16; Status DC Lidocaine HCl 1 katie 1 katie TID TP Last administered on 09/16/16 14:13; Start at 21:00 Sodium Chloride (Iv Sodium Chloride 0.9% 1000ml Bag) 1,000 ml @ 1,000 mls/hr Q1H PRN IV hypotension; Start 09/14/16 at 10:06; Stop 09/14/16 at 16:05; Status DC Sodium Chloride (Normal Saline Flush) 10 ml 1X PRN PRN IV AP catheter pack; Start 09/14/16 at 10:15; Stop 09/15/16 at 10:14; Status DC Sodium Chloride 10 ml 10 ml 1X PRN PRN IV CUSTOMER ORDER CLERK catheter pack; Start 09/14/16 at 10:15; Stop 09/15/16 at 10:14; Status DC Sodium Chloride (Iv Sodium Chloride 0.9% 1000ml Bag) 1,000 ml @ 400 mls/hr Q2H30M PRN IV PATENCY; Start 09/14/16 at 10:06; Stop 09/14/16 at 22:05; Status DC Info 1 each 1 each PRN DAILY PRN MC SEE COMMENTS; Start 09/14/16 at 10:15 Vancomycin HCl 500 mg/Sodium Chloride 100 ml @ 100 mls/hr 1X ONCE IV Last administered on 09/14/16 15:30; Start 09/14/16 at 13:00; Stop 09/14/16 at 13:59 ; Status DC Vancomycin HCl/ Sodium Chloride (Iv Sodium Chloride 0.9% 100ml) 100 ml @ 100 mls/hr QMWF IV ; Start 09/16/16 at 16:00 Haloperidol Lactate (Haldol) 2 mg PRN Q6HRS PRN IVP AGITATION Last administered on 09/16/16 06:27; Start 09/14/16 at 18:00 Fentanyl (Duragesic 50mcg/ Hr Patch) 1 patch Q3DAYS TD Last administered on 12:25; Start 09/15/16 at 11:00; Stop 09/15/16 at 16:57; Status DC Haloperidol Lactate 5 mg 5 mg PRN Q6HRS PRN IVP AGITATION Last administered on 09/15/16 12:20; Start 09/15/16 at 12:15 Sodium Chloride 1,000 ml @ 1,000 mls/hr Q1H PRN IV hypotension; Start 09/15/16 at 12:16; Stop 09/15/16 at 18:15; Status DC Albumin Human (Albuminar) 200 ml @ 200 mls/hr 1X PRN PRN IV Hypotension; Start 09/15/16 at 12:30; Stop 09/15/16 at 18:29; Status DC Acetaminophen (Tylenol) 500 mg 1X PRN PRN PO MILD PAIN / TEMP; Start 09/15/16 at 12:30; Stop 09/16/16 at 12:29; Status DC Diphenhydramine HCl (Benadryl) 25 mg 1X PRN PRN IV ITCHING; Start 09/15/16 at 12:30; Stop 09/16/16 at 12:29; Status DC Diphenhydramine HCl (Benadryl) 25 mg 1X PRN PRN IV ITCHING; Start 09/15/16 at 12:30; Stop 09/16/16 at 12:29; Status DC Labetalol HCl (Normodyne) 10 mg PRN Q1HR PRN IVP SBP > 180; Start 09/15/16 at 12:30; Stop 09/16/16 at 12:29; Status DC Clonidine HCl 0.1 mg 0.1 mg 1X PRN PRN PO SBP > 180; Start 09/15/16 at 12:30; Stop 09/16/16 at 12:29; Status DC Sodium Chloride (Iv Sodium Chloride 0.9% 1000ml Bag) 1,000 ml @ 400 mls/hr Q2H30M PRN IV PATENCY; Start 09/15/16 at 12:16; Stop 09/16/16 at 00:15; Status DC Info (PHARMACY MONITORING -- do not chart) 1 each PRN DAILY PRN MC SEE COMMENTS ; Start 09/15/16 at 12:30; Status UNV Fentanyl 1 patch 1 patch Q3DAYS TD Last administered on 09/15/16t 17:26; Start 09/15/16 at 17:00 Sodium Chloride 1,000 ml @ 1,000 mls/hr Q1H PRN IV hypotension; Start 09/16/16 at 08:34; Stop 09/16/16 at 14:33; Status DC Albumin Human (Albuminar) 200 ml @ 200 mls/hr 1X PRN PRN IV Hypotension; Start 09/16/16 at 08:45; Stop 09/16/16 at 14:44 Acetaminophen (Tylenol) 500 mg 1X PRN PRN PO MILD PAIN / TEMP; Start 09/16/16 at 08:45; Stop 09/17/16 at 08:44 Diphenhydramine HCl (Benadryl) 25 mg 1X PRN PRN IV ITCHING; Start 09/16/16 at 08:45; Stop 09/17/16 at 08:44 Diphenhydramine HCl (Benadryl) 25 mg 1X PRN PRN IV ITCHING; Start 09/16/16 at 08:45; Stop 09/17/16 at 08:44 Labetalol HCl (Normodyne) 10 mg PRN Q1HR PRN IVP SBP > 180; Start 09/16/16 at 08:45; Stop 09/17/16 at 08:44 Clonidine HCl 0.1 mg 0.1 mg 1X PRN PRN PO SBP > 180; Start 09/16/16 at 08:45; Stop 09/17/16 at 08:44 Sodium Chloride (Iv Sodium Chloride 0.9% 1000ml Bag) 1,000 ml @ 400 mls/hr Q2H30M PRN IV PATENCY; Start 09/16/16 at 08:34; Stop 09/16/16 at 20:33 Info (PHARMACY MONITORING -- do not chart) 1 each PRN DAILY PRN MC SEE COMMENTS ; Start 09/16/16 at 08:45; Status UNV Nystatin 5 ml [id number] Last administered on 09/16/16t 14:10; Start at 13:00 Fentanyl Citrate (Fentanyl 2ml Vial) 25 mcg PRN Q5MIN PRN IV MILD PAIN; Start 09/17/16 at 07:00; Stop 09/18/16 at 06:59 Fentanyl Citrate (Fentanyl 2ml Vial) 50 mcg PRN Q5MIN PRN IV MODERATE PAIN; Start 09/17/16 at 07:00; Stop 09/18/16 at 06:59 Morphine Sulfate 1 mg PRN Q10MIN PRN IV SEVERE PAIN; Start 09/17/16 at 07:00; Stop 09/18/16 at 06:59 Lidocaine HCl 2 ml PRN 1X PRN ID PRIOR TO IV START; Start 09/17/16 at 07:00; Stop 09/18/16 at 06:59 Hydromorphone HCl (Dilaudid) 0.5 mg PRN Q10MIN PRN IV SEV PAIN, Second choice; Start 09/17/16 at 07:00; Stop 09/18/16 at 06:59 Prochlorperazine Edisylate 5 mg 5 mg PACU PRN PRN IV NAUSEA, MRX1; Start at 07:00; Stop 09/18/16 at 06:59 Sodium Chloride (Iv Sodium Chloride 0.9% 1000ml Bag) 1,000 ml @ 0 mls/hr Q0M IV ; Start 09/17/16 at 12:00 Active Scripts Active Mupirocin Ointment (Mupirocin) 22 Gm Oint...g. 1 Katie TP TID Vitamin A & D Ointment (Vits A & D/White Pet/Lanolin) 56.7 Gm Oint...g. 1 Katie TP TID Diflucan (Fluconazole) 100 Mg Tablet 100 Mg PO DAILY Allopurinol 100 Mg Tablet 100 Mg PO DAILY Hydrocodone-Apap 5-325 (Hydrocodone Bit/Acetaminophen) 1 Each Tablet 1 Tab PO Q6HRS PRN Eliquis (Apixaban) 2.5 Mg Tablet 2.5 Mg PO DAILY Renvela (Sevelamer Carbonate) 2.4 Gm Powd.pack 2.4 Gm PO TIDWMEALS Miralax (Polyethylene Glycol 3350) 17 Gm Powd.pack 17 Gm PO PRN DAILY PRN Carvedilol 3.125 Mg Tablet 3.125 Mg PO BIDWMEALS Reported Sensipar (Cinacalcet Hcl) 30 Mg Tablet 1 Tab PO DAILY Glimepiride 2 Mg Tablet 4 Mg PO DAILY Novolog (Insulin Aspart) 100 Unit/1 Ml Cartridge 8 Unit SQ TIDAC Atorvastatin Calcium 40 Mg Tablet 1 Tab PO DAILY Vitals/I & O Vital Sign - Last 24 Hours 09/15/16 09/15/16 09/15/16 09/15/16 16:31 17:00 17:26 19:00 Temp 98.0 98.0 Pulse 100 96 Resp 18 B/P 116/50 129/60 Pulse Ox 99 O2 Delivery Room Air Room Air Room Air 09/15/16 09/15/16 09/15/16 09/15/16 19:25 21:30 21:30 23:00 Temp 98.2 98.2 Pulse 85 Resp 20 20 18 B/P 120/54 Pulse Ox 95 99 95 O2 Delivery Room Air Room Air Room Air Room Air 09/16/16 09/16/16 09/16/16 09/16/16 01:16 03:00 04:29 05:00 Temp 98.1 98.1 Pulse 79 Resp 20 18 20 20 B/P 133/70 Pulse Ox 95 94 94 94 O2 Delivery Room Air Room Air Room Air Room Air 09/16/16 09/16/16 09/16/16 09/16/16 07:00 09:28 11:35 11:40 Temp 98.6 98.1 98.6 98.1 Pulse 96 99 99 Resp 14 20 B/P 128/39 169/85 169/85 Pulse Ox 98 96 96 O2 Delivery Room Air Room Air Room Air Intake and Output 09/15/16 09/15/16 09/16/16 15:00 23:00 07:00 Intake Total 750 ml 689 ml Output Total 0 ml Balance 750 ml 689 ml FLAVIO NINO MD Sep 16, 2016 14:42
[2016-09-16 15:00] VITALS: BP 131/73
[2016-09-16] MEDS: VANCOMYCIN 500 MG in IV NORMAL SALINE 100ML 100 ML IV SCH (16:31)
[2016-09-16] MEDS: NORMAL SALINE IV SCH (16:31)
[2016-09-16] MEDS: SODIUM THIOSULFATE IV SCH (16:31)
--- NOTE | 2016-09-16 16:39 | PDOC2 ---
PALLIATIVE CARE Palliative Care Note Palliative Care Patient more alert today. Fentanyl [address] Breakthrough Fentanyl x 1 today. Patient agitated throughout the night. Haldol x 1. Patient had requested to family that he wants to be DNR/DNI Confirmed this with patient. Understands that without attempt at resuscitation he likely would . Outside the Hospital form signed by patient. Understands that this order will be rescinded when patient has I & D of scrotal lesion tomorrow. Plan: Continue current pain management DNR/DNI Discussed options for care after surgery with Leroy --son. Will evaluate needs after surgery tomorrow. --SNU vs LTAC Goal is to continue current treatment including dialysis; Maintain strength with PT/OT assistance. HUSSEIN OSCAR Sep 16, 2016 16:39
[2016-09-16 19:10] VITALS: BP 129/66
[2016-09-16] MEDS: ATORVASTATIN CALCIUM 40 MG TABLET. PO SCH (20:31)
[2016-09-16] MEDS: INSULIN DETEMIR 300 UNITS/3 ML INSULN.PEN. SQ SCH (22:11)
[2016-09-16 23:08] VITALS: BP 146/75
[2016-09-17] VITALS (8 sets, daily range): BP systolic 120–145; BP diastolic 61–79
[2016-09-17] MEDS: fentaNYL PF VIAL 100 MCG/2 ML VIAL IV PRN ×7 (01:59→16:26)
[2016-09-17] MEDS: AMINO AC 3%/ELECTROLYTE/GLYCER 1,000 ML IV SCH ×2 (02:38→22:11)
[2016-09-17] MEDS: HALOPERIDOL LACTATE 5 MG/ML VIAL. IVP PRN (03:40)
[2016-09-17] MEDS: PIPERACILLIN/TAZOBACTAM 2.25 GM in IV NORMAL SALINE 50ML 50 ML IV SCH ×3 (05:38→22:00)
[2016-09-17] MEDS ORDERED: MORPHINE SULFATE 2 MG/ML DISP.SYRIN. IV PRN (07:00)
[2016-09-17] MEDS ORDERED: HYDROmorphone 2 MG/ML VIAL IV PRN (07:00)
[2016-09-17] MEDS ORDERED: LIDOCAINE 1% 1 ML SYRINGE. ID PRN (07:00)
[2016-09-17] MEDS ORDERED: fentaNYL PF VIAL 100 MCG/2 ML VIAL IV PRN (07:00)
[2016-09-17] MEDS ORDERED: PROCHLORPERAZINE 10 MG/2 ML VIAL. IV PRN (07:00)
[2016-09-17] MEDS: INSULIN ASPART 300 UNITS/3 ML INSULN.PEN SQ SCH ×7 (07:30→21:00)
[2016-09-17] MEDS: CARVEDILOL 3.125 MG TABLET. PO SCH ×2 (08:00→18:45)
[2016-09-17] MEDS: SEVELAMER CARBONATE 800 MG TABLET. PO SCH ×3 (08:00→18:44)
[2016-09-17] MEDS: APIXABAN 2.5 MG TABLET. PO SCH ×2 (08:49→22:01)
[2016-09-17] MEDS: CINACALCET HCL 30 MG TABLET PO SCH (08:49)
--- NOTE | 2016-09-17 08:57 | PDOC ---
Infectious Disease Note Subjective Subjective Anxiety today but denies any concerns Didn't sleep well Still some scrotal pain ROS ROS GEN: Denies fevers, chills, sweats HEENT: Denies blurred vision, sore throat CV: Denies chest pain RESP: Denies shortness of air, cough GI: Denies n/v/d NEURO: Denies confusion, dizziness MSK: Denies weakness, joint pain/swelling Vital Sign Vital Signs Vital Signs Date Time Temp Pulse Resp B/P Pulse Ox O2 Delivery O2 Flow Rate FiO2 09/17/16 06:09 Nasal Cannula 09/17/16 01:59 20 95 2.0 09/16/16 23:08 98.4 105 146/75 98.4 Physical Exam PHYSICAL EXAM GENERAL: Appears comfortable, in bed HEENT: Oral cavity dry LUNGS: Clear HEART: S1S2, no gallop, no murmur ABD: Obese, hyperactive BS, soft, no grimace to palpation. PDC intact. : Posterior penile and scrotal wounds, + thick exudate/slough, scrotal mild/ mod excoriation - better EXT: No edema, no cyanosis. LUE AV fistula, sutures intact, less erythema. 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 Pancreatic lesions on CT Plan Plan of Care Cont Vanc, Zosyn & Fluconazole. wean soon to po Await debridement today Monitor labs/wounds D/w daughter NURIA VELEZ MD Sep 17, 2016 08:57
[2016-09-17] MEDS: VITS A & D/LANOLIN TOPICAL OINTMENT 56GM TUBE. TP SCH ×3 (09:00→22:11)
[2016-09-17] MEDS: NYSTATIN 100,000 UNITS/ML 5 ML ORAL.SUSP. SWSW SCH ×4 (09:00→22:11)
[2016-09-17] MEDS: LIDOCAINE 2% TOPICAL JELLY 30GM TUBE. TP SCH ×3 (09:00→22:12)
--- NOTE | 2016-09-17 09:30 | PDOC ---
PROGRESS NOTES Objective Objective Vascular Surgery POD#8 Ligation of left arm fistula for steal Awaiting I&D of scrotal wounds today. Will continue to monitor pt's status and plan to remove incisional stitches prior to discharge. Palliative care planned upon discharge. Vital Signs Date Time Temp Pulse Resp B/P Pulse Ox O2 Delivery O2 Flow Rate FiO2 09/17/16 07:00 97.9 105 22 136/70 98 Room Air 97.9 09/17/16 01:59 2.0 Intake and Output 09/17/16 06:59 Intake Total 839 ml Output Total 0 ml Balance 839 ml IV Total 839 ml Output Urine Total 0 ml # Bowel Movements 3 Assessment Assessment Problems Medical Problems: (1) Open wound of scrotum Status: Acute Comment Review of Relevant I have reviewed the following items robert (where applicable) has been applied. Labs Laboratory Tests Test 09/15/16 11:48 09/15/16 16:52 09/15/16 20:36 09/16/16 06:05 Glucose (Fingerstick) 162mg/dL (70-99) 102mg/dL (70-99) 138mg/dL (70-99) Sodium Level 138mmol/L (136-145) Potassium Level 3.9mmol/L (3.5-5.1) Chloride Level 97mmol/L (98-107) Carbon Dioxide Level 30mmol/L (21-32) Anion Gap 11 (6-14) Blood Urea Nitrogen 18mg/dL (8-26) Creatinine 2.5mg/dL (0.7-1.3) Estimated GFR (Cockcroft-Gault) 24.6 Glucose Level 115mg/dL (70-99) Calcium Level 8.4mg/dL (8.5-10.1) Phosphorus Level 2.7mg/dL (2.6-4.7) Albumin 2.2g/dL (3.4-5.0) Test 09/16/16 11:43 09/16/16 17:22 09/16/16 21:04 09/17/16 07:18 Glucose (Fingerstick) 80mg/dL (70-99) 164mg/dL (70-99) 190mg/dL (70-99) 200mg/dL (70-99) Laboratory Tests Test 09/16/16 11:43 09/16/16 17:22 09/16/16 21:04 09/17/16 07:18 Glucose (Fingerstick) 80mg/dL (70-99) 164mg/dL (70-99) 190mg/dL (70-99) 200mg/dL (70-99) Microbiology 09/07/16 Blood Culture - Final, Complete NO GROWTH AFTER 5 DAYS Medications Current Medications Meropenem/Sodium Chloride (Merrem/Iv Sodium Chloride 0.9% 100ml) 100 ml @ 200 mls/hr Q8HRS IV ; Start 09/07/16 at 22:00; Status UNV Vancomycin HCl 1 each 1 each PRN DAILY PRN MC SEE COMMENTS Last administered on 09/14/16 12:04; Start 09/07/16 at 20:45 Sodium Chloride (Iv Sodium Chloride 0.9% 500ml Bag) 500 ml @ 500 mls/hr 1X ONCE IV Last administered on 09/07/16 21:04; Start 09/07/16 at 21:00; Stop at 21:59; Status DC Hydromorphone HCl 1 mg 1 mg 1X ONCE IV Last administered on 09/07/16 20:59; Start 09/07/16 at 21:00; Stop 09/07/16 at 21:01; Status DC Meropenem 500 mg/ Sodium Chloride 50 ml @ 100 mls/hr QHS IV Last administered on 09/07/16 21:05; Start 09/07/16 at 21:00; Stop 09/08/16 at 07:59; Status DC Vancomycin HCl/ Sodium Chloride (Iv Sodium Chloride 0.9% 500ml Bag) 500 ml @ 250 mls/hr 1X ONCE IV Last administered on 09/07/16 22:07; Start 09/07/16 at 21:30; Stop 09/07/16 at 23:29; Status DC Ondansetron HCl (Zofran) 4 mg PRN Q8HRS PRN IV NAUSEA/VOMITING Last administered on 09/07/16 22:43; Start 09/07/16 at 22:00; Stop 09/08/16 at 21:59 ; Status DC Morphine Sulfate 4 mg 4 mg PRN Q2HR PRN IV SEVERE PAIN Last administered on 21:12; Start 09/07/16 at 22:00; Stop 09/08/16 at 21:59; Status DC Sodium Chloride (Iv Sodium Chloride 0.9% 1000ml Bag) 1,000 ml @ 75 mls/hr [id number] IV Last administered on 09/08/16 12:56; Start 09/07/16 at 21:52; Stop 09/08/16 at 21:51; Status DC Insulin Aspart (Novolog) 0-7 UNITS TIDWMEALS SQ ; Start 09/08/16 at 08:00; Stop 09/08/16 at 08:00; Status DC Dextrose (Dextrose 50%-Water Syringe) 12.5 gm PRN Q15MIN PRN IV SEE COMMENTS Last administered on 09/08/16 21:03; Start 09/07/16 at 22:30 Allopurinol (Zyloprim) 100 mg DAILY PO Last administered on 09/16/16 11:40; Start 09/08/16 at 09:00 Apixaban (Eliquis) 2.5 mg DAILY PO Last administered on 09/08/16 07:59; Start 09/08/16 at 09:00; Stop 09/08/16 at 10:43; Status DC Atorvastatin Calcium (Lipitor) 40 mg QHS PO Last administered on 09/16/16 20: 31; Start 09/08/16 at 21:00 Carvedilol (Coreg) 3.125 mg BIDWMEALS PO Last administered on 09/16/16 16:32; Start 09/08/16 at 08:00 Cinacalcet (Sensipar) 30 mg DAILY PO Last administered on 09/16/16 11:40; Start 09/08/16 at 09:00 Glimepiride (Amaryl) 4 mg DAILY PO Last administered on 09/08/16 07:59; Start 09/08/16 at 09:00; Stop 09/09/16 at 13:46; Status DC Acetaminophen/ Hydrocodone Bitart (Lortab 5/325) 1 tab PRN Q6HRS PRN PO SEVERE PAIN Last administered on 09/09/16 06:16; Start 09/07/16 at 22:30; Stop at 14:14; Status DC Polyethylene Glycol (miraLAX PACKET) 17 gm PRN DAILY PRN PO CONSTIPATION; Start 09/07/16 at 22:30 Sevelamer Carbonate (Renvela) 2.4 gm TIDWMEALS PO Last administered on 07:59; Start 09/08/16 at 08:00; Stop 09/08/16 at 12:01; Status DC Vitamin A/Vitamin D (Vitamin A & D Ointment) 1 katie TID TP Last administered on 09/16/16 20:37; Start 09/08/16 at 09:00 Docusate Sodium (Colace) 100 mg PRN DAILY PRN PO CONSTIPATION; Start 09/07/16 at 22:45 Docusate Sodium (Colace) 100 mg DAILY PO Last administered on 09/16/16 11:40; Start 09/08/16 at 09:00 Potassium Chloride (Klor-Con) 20 meq 1X ONCE PO Last administered on 01:38; Start 09/07/16 at 23:00; Stop 09/07/16 at 23:01; Status DC Insulin Aspart (Novolog) 0-7 UNITS QIDACHS SQ Last administered on 09/13/16 17 :53; Start 09/07/16 at 22:45 Info (Anti-Coagulation Monitoring By Pharmacy) 1 each PRN DAILY PRN MC SEE COMMENTS Last administered on 09/08/16 02:30; Start 09/07/16 at 23:45 Vancomycin HCl 1 each 1 each 1X ONCE MC ; Start 09/11/16 at 21:30; Stop at 21:30; Status DC Vancomycin HCl 1.5 gm/Sodium Chloride 500 ml @ 250 mls/hr Q48H IV ; Start 09/09 at 22:00; Stop 09/09/16 at 22:00; Status DC Piperacillin Sod/ Tazobactam Sod/ Sodium Chloride (Zosyn/Iv Sodium Chloride 0.9 % 50ml) 50 ml @ 100 mls/hr Q8HRS IV Last administered on 09/10/16 06:11; Start 09/08/16 at 08:30; Stop 09/10/16 at 09:00; Status DC Fluconazole (Diflucan) 100 mg DAILY PO Last administered on 09/16/16 11:40; Start 09/08/16 at 09:00 Darbepoetin Lasha (Aranesp) 60 mcg [id number] SQ Last administered on 09/15/16 21 :23; Start 09/08/16 at 21:00 Apixaban (Eliquis) 2.5 mg BID PO Last administered on 09/16/16 20:31; Start at 21:00 Vancomycin HCl 1 each 1X ONCE MC Last administered on 09/09/16 06:00; Start 09/09/16 at 06:00; Stop 09/09/16 at 06:01; Status DC Sevelamer Carbonate (Renvela) 2,400 mg TIDWMEALS PO Last administered on 16:31; Start 09/08/16 at 12:00 Insulin Aspart (Novolog) 8 units TIDAC SQ Last administered on 09/10/16 08:41 ; Start 09/08/16 at 12:00; Stop 09/10/16 at 10:17; Status DC Lorazepam (Ativan) 0.5 mg PRN Q6HRS PRN PO ANXIETY / AGITATION Last administered on 09/11/16 11:45; Start 09/08/16 at 13:00 Fentanyl Citrate (Fentanyl 2ml Vial) 25 mcg PRN Q5MIN PRN IV MILD PAIN; Start 09/09/16 at 07:00; Stop 09/10/16 at 06:59; Status DC Fentanyl Citrate (Fentanyl 2ml Vial) 50 mcg PRN Q5MIN PRN IV MODERATE PAIN; Start 09/09/16 at 07:00; Stop 09/10/16 at 06:59; Status DC Morphine Sulfate 1 mg PRN Q10MIN PRN IV SEVERE PAIN; Start 09/09/16 at 07:00; Stop 09/10/16 at 06:59; Status DC Lidocaine HCl 2 ml PRN 1X PRN ID PRIOR TO IV START; Start 09/09/16 at 07:00; Stop 09/10/16 at 06:59; Status DC Hydromorphone HCl (Dilaudid) 0.5 mg PRN Q10MIN PRN IV SEV PAIN, Second choice; Start 09/09/16 at 07:00; Stop 09/10/16 at 06:59; Status DC Prochlorperazine Edisylate 5 mg 5 mg PACU PRN PRN IV NAUSEA, MRX1; Start at 07:00; Stop 09/10/16 at 06:59; Status DC Sodium Chloride (Iv Sodium Chloride 0.9% 1000ml Bag) 1,000 ml @ 0 mls/hr Q0M IV ; Start 09/09/16 at 12:00; Stop 09/10/16 at 10:51; Status DC Morphine Sulfate 4 mg PRN Q2HR PRN IV SEVERE PAIN Last administered on 10:43; Start 09/09/16 at 01:00; Stop 09/11/16 at 15:23; Status DC Lidocaine HCl 30 ml STK-MED ONCE .ROUTE ; Start 09/09/16 at 07:12; Stop at 07:13; Status Cancel Cellulose 1 each STK-MED ONCE .ROUTE ; Start 09/09/16 at 07:12; Stop 09/09/16 at 07:13; Status Cancel Papaverine HCl 60 mg 60 mg STK-MED ONCE .ROUTE ; Start 09/09/16 at 07:13; Stop 09/09/16 at 07:14; Status Cancel Sodium Chloride 1,000 ml @ 1,000 mls/hr Q1H PRN IV hypotension; Start 09/09/16 at 07:30; Stop 09/09/16 at 13:29; Status DC Albumin Human (Albuminar) 200 ml @ 200 mls/hr 1X PRN PRN IV Hypotension Last administered on 09/09/16 09:37; Start 09/09/16 at 07:30; Stop 09/09/16 at 13:29 ; Status DC Acetaminophen (Tylenol) 500 mg 1X PRN PRN PO MILD PAIN / TEMP; Start 09/09/16 at 07:30; Stop 09/10/16 at 07:29; Status DC Diphenhydramine HCl (Benadryl) 25 mg 1X PRN PRN IV ITCHING; Start 09/09/16 at 07:30; Stop 09/10/16 at 07:29; Status DC Diphenhydramine HCl (Benadryl) 25 mg 1X PRN PRN IV ITCHING; Start 09/09/16 at 07:30; Stop 09/10/16 at 07:29; Status DC Labetalol HCl (Normodyne) 10 mg PRN Q1HR PRN IVP SBP > 180; Start 09/09/16 at 07:30; Stop 09/10/16 at 07:29; Status DC Clonidine HCl 0.1 mg 0.1 mg 1X PRN PRN PO SBP > 180; Start 09/09/16 at 07:30; Stop 09/10/16 at 07:29; Status DC Sodium Chloride (Iv Sodium Chloride 0.9% 1000ml Bag) 1,000 ml @ 400 mls/hr Q2H30M PRN IV PATENCY; Start 09/09/16 at 07:30; Stop 09/09/16 at 19:29; Status DC Info 1 each 1 each PRN DAILY PRN MC SEE COMMENTS; Start 09/09/16 at 07:30; Stop 09/14/16 at 10:15; Status DC Heparin Sodium (Porcine) 5000 unit/Sodium Chloride 505 ml @ 505 mls/hr 1X PERIOP ONCE IRR ; Start 09/09/16 at 09:00; Stop 09/09/16 at 09:59; Status DC Cefazolin Sodium 1 gm/Sodium Chloride 500 ml @ 500 mls/hr 1X PERIOP ONCE IRR ; Start 09/09/16 at 09:00; Stop 09/09/16 at 09:59; Status DC Cefazolin Sodium (Ancef 1gm Ivpb For Omni) 0 ml @ As Directed STK-MED ONCE IV ; Start 09/09/16 at 13:23; Stop 09/09/16 at 13:24; Status DC Acetaminophen/ Hydrocodone Bitart (Lortab 5/325) 1 tab PRN Q4HRS PRN PO PAIN; Start 09/09/16 at 14:15; Stop 09/11/16 at 11:52; Status DC Acetaminophen/ Hydrocodone Bitart (Lortab 5/325) 2 tab PRN Q4HRS PRN PO PAIN Last administered on 09/11/16t 04:49; Start 09/09/16 at 14:15; Stop 09/11/16 at 11:52; Status DC Midazolam HCl (Versed) 2 mg STK-MED ONCE .ROUTE ; Start 09/09/16 at 14:06; Stop 09/09/16 at 14:07; Status DC Fentanyl Citrate 100 mcg 100 mcg STK-MED ONCE .ROUTE ; Start 09/09/16 at 14:06; Stop 09/09/16 at 14:07; Status DC Vancomycin HCl/ Sodium Chloride (Iv Sodium Chloride 0.9% 100ml) 100 ml @ 100 mls/hr QMWF IV Last administered on 09/09/16 17:36; Start 09/09/16 at 16:00; Stop 09/11/16 at 15:32; Status DC Lidocaine HCl 20 ml STK-MED ONCE .ROUTE ; Start 09/09/16 at 14:11; Stop at 14:12; Status DC Lidocaine HCl 20 ml STK-MED ONCE .ROUTE ; Start 09/09/16 at 14:11; Stop at 14:12; Status Cancel Cellulose 1 each STK-MED ONCE .ROUTE ; Start 09/09/16 at 14:12; Stop 09/09/16 at 14:13; Status Cancel Papaverine HCl 60 mg 60 mg STK-MED ONCE .ROUTE ; Start 09/09/16 at 14:12; Stop 09/09/16 at 14:13; Status DC Propofol (Diprivan) 20 ml @ As Directed STK-MED ONCE IV ; Start 09/09/16 at 14: 51; Stop 09/09/16 at 14:52; Status DC Amoxicillin/ Clavulanate Potassium (Augmentin 500/ 125mg) 1 tab DAILY PO Last administered on 09/10/16 10:43; Start 09/10/16 at 10:00; Stop 09/11/16 at 10:47 ; Status DC Insulin Aspart (Novolog) 5 units TIDAC SQ Last administered on 09/13/16 17:51 ; Start 09/10/16 at 11:30 Insulin Detemir (Levemir) 10 units QHS SQ Last administered on 09/10/16 21:46 ; Start 09/10/16 at 21:00; Stop 09/11/16 at 10:42; Status DC Sodium Thiosulfate 25 gm 25 gm 3X/WEEK IV ; Start 09/11/16 at 09:00; Status UNV Magnesium Sulfate/ Dextrose 50 ml @ 25 mls/hr PRN DAILY PRN IV for Mag < 1.7 on am labs; Start 09/10/16 at 10:45 Sodium Thiosulfate 25 gm/ Sodium Chloride 100 ml @ 100 mls/hr 3X/WEEK@16 IV Last administered on 09/16/16 16:31; Start 09/11/16 at 16:00 Amino Acids/ Glycerin/ Electrolytes (Procalamine) 1,000 ml @ 80 mls/hr [id number] IV Last administered on 09/17/16 02:38; Start 09/10/16 at 11:30 Fentanyl Citrate (Fentanyl 2ml Vial) 25 mcg PRN Q2HR PRN IV PAIN Last administered on 09/13/16 17:02; Start 09/10/16 at 13:00; Stop 09/13/16 at 18:42 ; Status DC Albuterol Sulfate (Ventolin Neb Soln) 2.5 mg PRN Q4HRS PRN NEB SHORTNESS OF BREATH Last administered on 09/12/16 08:56; Start 09/10/16 at 13:30 Tramadol HCl (Ultram) 50 mg PRN Q6HRS PRN PO PAIN Last administered on 08:39; Start 09/10/16 at 13:45 Ondansetron HCl (Zofran) 4 mg PRN Q6HRS PRN IV NAUSEA/VOMITING Last administered on 09/11/16 08:39; Start 09/10/16 at 19:15 Calcium Carbonate/ Glycine (Tums) 500 mg TID PRN PO INDIGESTION; Start at 19:15 Pantoprazole Sodium (Protonix) 40 mg DAILYAC PO Last administered on 09/11/16 08:38; Start 09/10/16 at 20:00 Prochlorperazine Edisylate (Compazine) 10 mg PRN Q6HRS PRN IV NAUSEA/VOMITING Last administered on 09/11/16 10:49; Start 09/11/16 at 10:30 Insulin Detemir (Levemir) 15 units QHS SQ Last administered on 09/16/16 22:11 ; Start 09/11/16 at 21:00 Metoclopramide HCl 5 mg 5 mg PRN Q6HRS PRN IV NAUSEA/VOMITING Last administered on 09/11/16 20:55; Start 09/11/16 at 10:45 Piperacillin Sod/ Tazobactam Sod/ Sodium Chloride (Zosyn/Iv Sodium Chloride 0.9 % 50ml) 50 ml @ 100 mls/hr Q8HRS IV Last administered on 09/17/16 05:38; Start 09/11/16 at 14:00 Oxycodone/ Acetaminophen 1 tab 1 tab PRN Q4HRS PRN PO PAIN Last administered on 09/13/16 19:51; Start 09/11/16 at 12:00 Sodium Thiosulfate/ Sodium Chloride (Sodium Thiosulfate/Iv Sodium Chloride 0.9% 100ml) 100 ml @ 100 mls/hr 1X ONCE IV Last administered on 09/12/16 16:00; Start 09/12/16 at 16:00; Stop 09/12/16 at 16:59; Status DC Lorazepam (Ativan) 1 mg 1X ONCE IV ; Start 09/11/16 at 18:00; Stop 09/11/16 at 18:01; Status DC Haloperidol Lactate (Haldol) 2 mg PRN Q24HRS PRN IVP AGITATION Last administered on 09/14/16 11:04; Start 09/11/16 at 18:00; Stop 09/14/16 at 15:06 ; Status DC Lorazepam 1 mg 1 mg 1X ONCE IV Last administered on 09/12/16 03:14; Start at 01:00; Stop 09/12/16 at 01:01; Status DC Sodium Chloride (Iv Sodium Chloride 0.9% 1000ml Bag) 1,000 ml @ 1,000 mls/hr Q1H PRN IV hypotension; Start 09/12/16 at 08:00; Stop 09/12/16 at 13:59; Status DC Diphenhydramine HCl 50 mg 50 mg 1X PRN PRN IV ITCHING Last administered on 09/12 09:06; Start 09/12/16 at 08:45; Stop 09/12/16 at 16:00; Status DC Sodium Chloride (Iv Sodium Chloride 0.9% 1000ml Bag) 1,000 ml @ 400 mls/hr Q2H30M PRN IV PATENCY; Start 09/12/16 at 08:00; Stop 09/12/16 at 19:59; Status DC Info (PHARMACY MONITORING -- do not chart) 1 each PRN DAILY PRN MC SEE COMMENTS ; Start 09/12/16 at 08:45; Status UNV Lorazepam 0.5 mg 0.5 mg PRN Q6HRS PRN IV ANXIETY / AGITATION Last administered on 09/14/16 23:37; Start 09/12/16 at 11:00 Vancomycin HCl/ Sodium Chloride (Iv Sodium Chloride 0.9% 100ml) 100 ml @ 100 mls/hr 1X ONCE IV Last administered on 09/12/16 14:40; Start 09/12/16 at 13: 00; Stop 09/12/16 at 13:59; Status DC Fentanyl Citrate (Fentanyl 2ml Vial) 50 mcg PRN Q2HR PRN IV PAIN Last administered on 09/17/16 06:09; Start 09/13/16 at 18:45 Morphine Sulfate 1 mg PRN Q2HR PRN IV PAIN Last administered on 09/15/16 08:51 ; Start 09/13/16 at 18:45; Stop 09/15/16 at 10:39; Status DC Lidocaine (Lidoderm) 1 patch DAILY TD ; Start 09/13/16 at 19:00; Stop 09/13/16 at 19:16; Status DC Lidocaine HCl 1 katie 1 katie TID TP Last administered on 09/16/16 20:37; Start at 21:00 Sodium Chloride (Iv Sodium Chloride 0.9% 1000ml Bag) 1,000 ml @ 1,000 mls/hr Q1H PRN IV hypotension; Start 09/14/16 at 10:06; Stop 09/14/16 at 16:05; Status DC Sodium Chloride (Normal Saline Flush) 10 ml 1X PRN PRN IV AP catheter pack; Start 09/14/16 at 10:15; Stop 09/15/16 at 10:14; Status DC Sodium Chloride 10 ml 10 ml 1X PRN PRN IV 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; Start 09/14/16 at 10:15; Stop 09/15/16 at 10:14; Status DC Sodium Chloride (Iv Sodium Chloride 0.9% 1000ml Bag) 1,000 ml @ 400 mls/hr Q2H30M PRN IV PATENCY; Start 09/14/16 at 10:06; Stop 09/14/16 at 22:05; Status DC Info 1 each 1 each PRN DAILY PRN MC SEE COMMENTS; Start 09/14/16 at 10:15 Vancomycin HCl 500 mg/Sodium Chloride 100 ml @ 100 mls/hr 1X ONCE IV Last administered on 09/14/16 15:30; Start 09/14/16 at 13:00; Stop 09/14/16 at 13:59 ; Status DC Vancomycin HCl/ Sodium Chloride (Iv Sodium Chloride 0.9% 100ml) 100 ml @ 100 mls/hr QMWF IV Last administered on 09/16/16 16:31; Start 09/16/16 at 16:00 Haloperidol Lactate (Haldol) 2 mg PRN Q6HRS PRN IVP AGITATION Last administered on 09/16/16 20:37; Start 09/14/16 at 18:00 Fentanyl (Duragesic 50mcg/ Hr Patch) 1 patch Q3DAYS TD Last administered on 12:25; Start 09/15/16 at 11:00; Stop 09/15/16 at 16:57; Status DC Haloperidol Lactate 5 mg 5 mg PRN Q6HRS PRN IVP AGITATION Last administered on 09/17/16 03:40; Start 09/15/16 at 12:15 Sodium Chloride 1,000 ml @ 1,000 mls/hr Q1H PRN IV hypotension; Start 09/15/16 at 12:16; Stop 09/15/16 at 18:15; Status DC Albumin Human (Albuminar) 200 ml @ 200 mls/hr 1X PRN PRN IV Hypotension; Start 09/15/16 at 12:30; Stop 09/15/16 at 18:29; Status DC Acetaminophen (Tylenol) 500 mg 1X PRN PRN PO MILD PAIN / TEMP; Start 09/15/16 at 12:30; Stop 09/16/16 at 12:29; Status DC Diphenhydramine HCl (Benadryl) 25 mg 1X PRN PRN IV ITCHING; Start 09/15/16 at 12:30; Stop 09/16/16 at 12:29; Status DC Diphenhydramine HCl (Benadryl) 25 mg 1X PRN PRN IV ITCHING; Start 09/15/16 at 12:30; Stop 09/16/16 at 12:29; Status DC Labetalol HCl (Normodyne) 10 mg PRN Q1HR PRN IVP SBP > 180; Start 09/15/16 at 12:30; Stop 09/16/16 at 12:29; Status DC Clonidine HCl 0.1 mg 0.1 mg 1X PRN PRN PO SBP > 180; Start 09/15/16 at 12:30; Stop 09/16/16 at 12:29; Status DC Sodium Chloride (Iv Sodium Chloride 0.9% 1000ml Bag) 1,000 ml @ 400 mls/hr Q2H30M PRN IV PATENCY; Start 09/15/16 at 12:16; Stop 09/16/16 at 00:15; Status DC Info (PHARMACY MONITORING -- do not chart) 1 each PRN DAILY PRN MC SEE COMMENTS ; Start 09/15/16 at 12:30; Status UNV Fentanyl 1 patch 1 patch Q3DAYS TD Last administered on 09/15/16t 17:26; Start 09/15/16 at 17:00 Sodium Chloride 1,000 ml @ 1,000 mls/hr Q1H PRN IV hypotension; Start 09/16/16 at 08:34; Stop 09/16/16 at 14:33; Status DC Albumin Human (Albuminar) 200 ml @ 200 mls/hr 1X PRN PRN IV Hypotension; Start 09/16/16 at 08:45; Stop 09/16/16 at 14:44; Status DC Acetaminophen (Tylenol) 500 mg 1X PRN PRN PO MILD PAIN / TEMP; Start 09/16/16 at 08:45; Stop 09/17/16 at 08:44; Status DC Diphenhydramine HCl (Benadryl) 25 mg 1X PRN PRN IV ITCHING; Start 09/16/16 at 08:45; Stop 09/17/16 at 08:44; Status DC Diphenhydramine HCl (Benadryl) 25 mg 1X PRN PRN IV ITCHING; Start 09/16/16 at 08:45; Stop 09/17/16 at 08:44; Status DC Labetalol HCl (Normodyne) 10 mg PRN Q1HR PRN IVP SBP > 180; Start 09/16/16 at 08:45; Stop 09/17/16 at 08:44; Status DC Clonidine HCl 0.1 mg 0.1 mg 1X PRN PRN PO SBP > 180; Start 09/16/16 at 08:45; Stop 09/17/16 at 08:44; Status DC Sodium Chloride (Iv Sodium Chloride 0.9% 1000ml Bag) 1,000 ml @ 400 mls/hr Q2H30M PRN IV PATENCY; Start 09/16/16 at 08:34; Stop 09/16/16 at 20:33; Status DC Info (PHARMACY MONITORING -- do not chart) 1 each PRN DAILY PRN MC SEE COMMENTS ; Start 09/16/16 at 08:45; Status UNV Nystatin 5 ml [id number] Last administered on 09/16/16t 16:31; Start at 13:00 Fentanyl Citrate (Fentanyl 2ml Vial) 25 mcg PRN Q5MIN PRN IV MILD PAIN; Start 09/17/16 at 07:00; Stop 09/18/16 at 06:59 Fentanyl Citrate (Fentanyl 2ml Vial) 50 mcg PRN Q5MIN PRN IV MODERATE PAIN; Start 09/17/16 at 07:00; Stop 09/18/16 at 06:59 Morphine Sulfate 1 mg PRN Q10MIN PRN IV SEVERE PAIN; Start 09/17/16 at 07:00; Stop 09/18/16 at 06:59 Lidocaine HCl 2 ml PRN 1X PRN ID PRIOR TO IV START; Start 09/17/16 at 07:00; Stop 09/18/16 at 06:59 Hydromorphone HCl (Dilaudid) 0.5 mg PRN Q10MIN PRN IV SEV PAIN, Second choice; Start 09/17/16 at 07:00; Stop 09/18/16 at 06:59 Prochlorperazine Edisylate 5 mg 5 mg PACU PRN PRN IV NAUSEA, MRX1; Start at 07:00; Stop 09/18/16 at 06:59 Sodium Chloride (Iv Sodium Chloride 0.9% 1000ml Bag) 1,000 ml @ 0 mls/hr Q0M IV ; Start 09/17/16 at 12:00 Active Scripts Active Mupirocin Ointment (Mupirocin) 22 Gm Oint...g. 1 Katie TP TID Vitamin A & D Ointment (Vits A & D/White Pet/Lanolin) 56.7 Gm Oint...g. 1 Katie TP TID Diflucan (Fluconazole) 100 Mg Tablet 100 Mg PO DAILY Allopurinol 100 Mg Tablet 100 Mg PO DAILY Hydrocodone-Apap 5-325 (Hydrocodone Bit/Acetaminophen) 1 Each Tablet 1 Tab PO Q6HRS PRN Eliquis (Apixaban) 2.5 Mg Tablet 2.5 Mg PO DAILY Renvela (Sevelamer Carbonate) 2.4 Gm Powd.pack 2.4 Gm PO TIDWMEALS Miralax (Polyethylene Glycol 3350) 17 Gm Powd.pack 17 Gm PO PRN DAILY PRN Carvedilol 3.125 Mg Tablet 3.125 Mg PO BIDWMEALS Reported Sensipar (Cinacalcet Hcl) 30 Mg Tablet 1 Tab PO DAILY Glimepiride 2 Mg Tablet 4 Mg PO DAILY Novolog (Insulin Aspart) 100 Unit/1 Ml Cartridge 8 Unit SQ TIDAC Atorvastatin Calcium 40 Mg Tablet 1 Tab PO DAILY Vitals/I & O Vital Sign - Last 24 Hours 09/16/16 09/16/16 09/16/16 09/16/16 11:35 11:40 15:00 16:32 Temp 98.1 98.1 98.1 98.1 Pulse 99 99 85 85 Resp 20 20 B/P 169/85 169/85 131/73 131/73 Pulse Ox 96 100 O2 Delivery Room Air Nasal Cannula O2 Flow Rate 2.0 09/16/16 09/16/16 09/16/16 09/16/16 19:10 19:50 20:37 23:08 Temp 99.3 98.4 99.3 98.4 Pulse 94 105 Resp 18 18 B/P 129/66 146/75 Pulse Ox 99 95 O2 Delivery Room Air Nasal Cannula Nasal Cannula Room Air O2 Flow Rate 2.0 09/17/16 09/17/16 09/17/16 09/17/16 01:59 02:38 06:09 07:00 Temp 97.9 97.9 Pulse 105 Resp 20 22 B/P 136/70 Pulse Ox 95 98 O2 Delivery Nasal Cannula Nasal Cannula Nasal Cannula Room Air O2 Flow Rate 2.0 Intake and Output 09/16/16 09/16/16 09/17/16 14:59 22:59 06:59 Intake Total 200 ml 639 ml Output Total 0 ml Balance 200 ml 639 ml ARNALDO HENRIQUEZ APRN Sep 17, 2016 09:30
[2016-09-17 09:36] LABS: ALBUMIN 2.3 g/dL (3.4-5.0); CALCIUM 8.6 mg/dL (8.5-10.1); CREATININE 2.7 mg/dL (0.7-1.3); GFR 22.5; PHOSPHORUS 2.2 mg/dL (2.6-4.7); POTASSIUM 4.3 mmol/L (3.5-5.1)
--- NOTE | 2016-09-17 10:42 | PDOC ---
SUBJECTIVE ROS ESRD Doing much better, wants to go back to PD CVS: no Orthopnea, no CP RESP: no SOB, no LOCO GI: no Nausea, no Vomiting : no Dysuria, no Urgency Remains very anorexic OBJECTIVE Vital Signs Vital Signs Date Time Temp Pulse Resp B/P Pulse Ox O2 Delivery O2 Flow Rate FiO2 09/17/16 07:00 97.9 105 22 136/70 98 Room Air 97.9 09/17/16 01:59 2.0 I & 0 Intake and Output 09/17/16 06:59 Intake Total 839 ml Output Total 0 ml Balance 839 ml IV Total 839 ml Output Urine Total 0 ml # Bowel Movements 3 PHYSICAL EXAM Physical Exam GEN: Awake, Oriented x 2-3 , In no distress EYES: Vision Unchanged, Conjunctiva Normal EN: No EN Drainage, Mucous Membranes dry NECK: no JVD, no JVP, Supple, no Thyromegaly CVS: S1S2, sys Murmur, No Gallop, No Rub,no Edema RESP: no Rales, no Rhonchi,no Acc. Muscle Use GI: BS + ve, NO Bruit, Non Tender, Non Distended : no CVA tenderness, no Suprapubic Tenderness DIAGNOSIS/ASSESSMENT Assessment & Plan ESRD: Current fluid and E-lyte status does not necessitate emergent need for dialysis. Will re-evaluate for dialysis in the am and continue on MWF schedule. 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 ^ GAP due to NaTSO4 ANEMIA; Aranesp as ordered, Transfuse with next HD as needed HTN: Current BP meds as reviewed. See orders for changes. Nutrition - PPN for now, Added Nepro - ? NEEd for TPN recc Lowish Phos (suspect due to POOR PO itnake) - IV Na phos x 1 today; Hold Sensipar for now PD fluid with ^ed WBCs -- will do another pass today Discussed Plan of Care with family at bedside extensively COMMENT/RELEVANT DATA Meds Current Medications Medications (Trade) Dose Ordered Sig/Dirk Start Time Stop Time Status Last Admin Dose Admin Acetaminophen (Tylenol) 500 mg 1X PRN PRN 09/16/16 08:45 09/17/16 08:44 DC Acetaminophen/ Hydrocodone Bitart (Lortab 5/325) 2 tab PRN Q4HRS PRN 4/19/17 14:15 09/11/16 11:52 DC 09/11/16 04:49 2 TAB Albumin Human (Albuminar) 200 ml @ 200 mls/hr 1X PRN PRN 09/16/16 08:45 09/16/16 14:44 DC Albuterol Sulfate (Ventolin Neb Soln) 2.5 mg PRN Q4HRS PRN 09/10/16 13:30 09/12/16 08:56 2.5 MG Allopurinol (Zyloprim) 100 mg DAILY 09/08/16 09:00 09/16/16 11:40 100 MG Amino Acids/ Glycerin/ Electrolytes (Procalamine) 1,000 ml @ 80 mls/hr [id number] 09/10/16 11:30 09/17/16 02:38 80 MLS/HR Amoxicillin/ Clavulanate Potassium (Augmentin 500/ 125mg) 1 tab DAILY 09/10/16 10:00 09/11/16 10:47 DC 09/10/16 10:43 1 TAB Apixaban (Eliquis) 2.5 mg BID 09/08/16 21:00 09/16/16 20:31 2.5 MG Atorvastatin Calcium (Lipitor) 40 mg QHS 09/08/16 21:00 09/16/16 20:31 40 MG Calcium Carbonate/ Glycine (Tums) 500 mg TID PRN 09/10/16 19:15 Carvedilol (Coreg) 3.125 mg BIDWMEALS 09/08/16 08:00 09/16/16 16:32 3.125 MG Cefazolin Sodium (Ancef 1gm Ivpb For Omni) 0 ml @ As Directed STK-MED ONCE 09/09/16 13:23 09/09/16 13:24 DC Cefazolin Sodium 1 gm/Sodium Chloride 500 ml @ 500 mls/hr 1X PERIOP ONCE 09/09/16 09:00 09/09/16 09:59 DC Cellulose 1 each STK-MED ONCE 09/09/16 14:12 09/09/16 14:13 Cancel Cinacalcet (Sensipar) 30 mg DAILY 09/08/16 09:00 09/16/16 11:40 30 MG Clonidine HCl (Catapres) 0.1 mg 1X PRN PRN 09/16/16 08:45 09/17/16 08:44 DC Clonidine HCl 0.1 mg 0.1 mg 1X PRN PRN 09/09/16 07:30 09/10/16 07:29 DC Darbepoetin Lasha (Aranesp) 60 mcg [id number] 09/08/16 21:00 09/15/16 21:23 60 MCG Dextrose (Dextrose 50%-Water Syringe) 12.5 gm PRN Q15MIN PRN 09/07/16 22:30 09/08/16 21:03 25 GM Diphenhydramine HCl (Benadryl) 25 mg 1X PRN PRN 09/16/16 08:45 09/17/16 08:44 DC Docusate Sodium (Colace) 100 mg DAILY 09/08/16 09:00 09/16/16 11:40 100 MG Fentanyl (Duragesic 50mcg/ Hr Patch) 1 patch Q3DAYS 09/15/16 11:00 09/15/16 16:57 DC 09/15/16 12:25 1 PATCH Fentanyl 1 patch 1 patch Q3DAYS 09/15/16 17:00 09/15/16 17:26 1 PATCH Fentanyl Citrate (Fentanyl 2ml Vial) 50 mcg PRN Q5MIN PRN 09/17/16 07:00 09/18/16 06:59 Fluconazole (Diflucan) 100 mg DAILY 09/08/16 09:00 09/16/16 11:40 100 MG Glimepiride (Amaryl) 4 mg DAILY 09/08/16 09:00 09/09/16 13:46 DC 09/08/16 07:59 4 MG Haloperidol Lactate (Haldol) 5 mg PRN Q6HRS PRN 09/15/16 12:15 09/17/16 03:40 5 MG Heparin Sodium (Porcine) 5000 unit/Sodium Chloride 505 ml @ 505 mls/hr 1X PERIOP ONCE 09/09/16 09:00 09/09/16 09:59 DC Hydromorphone HCl (Dilaudid) 0.5 mg PRN Q10MIN PRN 09/17/16 07:00 09/18/16 06:59 Hydromorphone HCl 1 mg 1 mg 1X ONCE 09/07/16 21:00 09/07/16 21:01 DC 09/07/16 20:59 1 MG Info (Anti-Coagulation Monitoring By Pharmacy) 1 each PRN DAILY PRN 09/07/16 23:45 09/08/16 02:30 1 EACH Info (PHARMACY MONITORING -- do not chart) 1 each PRN DAILY PRN 09/16/16 08:45 UNV Info 1 each 1 each PRN DAILY PRN 09/14/16 10:15 Insulin Aspart (Novolog) 5 units TIDAC 09/10/16 11:30 09/13/16 17:51 5 UNITS Insulin Detemir (Levemir) 15 units QHS 09/11/16 21:00 09/16/16 22:11 15 UNITS Labetalol HCl (Normodyne) 10 mg PRN Q1HR PRN 09/16/16 08:45 09/17/16 08:44 DC Lidocaine (Lidoderm) 1 patch DAILY 09/13/16 19:00 09/13/16 19:16 DC Lidocaine HCl 2 ml PRN 1X PRN 09/17/16 07:00 09/18/16 06:59 Lidocaine HCl (Xylocaine 2% Topical 30gm Tube) 1 marie TID 09/13/16 21:00 09/16/16 20:37 1 MARIE Lorazepam (Ativan) 0.5 mg PRN Q6HRS PRN 09/12/16 11:00 09/14/16 23:37 0.5 MG Magnesium Sulfate/ Dextrose 50 ml @ 25 mls/hr PRN DAILY PRN 09/10/16 10:45 Meropenem 1 gm/ Sodium Chloride 100 ml @ 200 mls/hr Q8HRS 09/07/16 22:00 UNV Meropenem/Sodium Chloride (Merrem/Iv Sodium Chloride 0.9% 50ml) 50 ml @ 100 mls/hr QHS 09/07/16 21:00 09/08/16 07:59 DC 09/07/16 21:05 100 MLS/HR Metoclopramide HCl 5 mg 5 mg PRN Q6HRS PRN 09/11/16 10:45 09/11/16 20:55 5 MG Midazolam HCl (Versed) 2 mg STK-MED ONCE 09/09/16 14:06 09/09/16 14:07 DC Morphine Sulfate 1 mg PRN Q10MIN PRN 09/17/16 07:00 09/18/16 06:59 Nystatin 5 ml [id number] 09/16/16 13:00 09/16/16 16:31 5 ML Ondansetron HCl (Zofran) 4 mg PRN Q6HRS PRN 09/10/16 19:15 09/11/16 08:39 4 MG Oxycodone/ Acetaminophen 1 tab 1 tab PRN Q4HRS PRN 09/11/16 12:00 09/13/16 19:51 1 TAB Pantoprazole Sodium (Protonix) 40 mg DAILYAC 09/10/16 20:00 09/11/16 08:38 40 MG Papaverine HCl 60 mg STK-MED ONCE 09/09/16 07:13 09/09/16 07:14 Cancel Papaverine HCl 60 mg 60 mg STK-MED ONCE 09/09/16 14:12 09/09/16 14:13 DC Piperacillin Sod/ Tazobactam Sod/ Sodium Chloride (Zosyn/Iv Sodium Chloride 0.9% 50ml) 50 ml @ 100 mls/hr Q8HRS 09/11/16 14:00 09/17/16 05:38 100 MLS/HR Polyethylene Glycol (miraLAX PACKET) 17 gm PRN DAILY PRN 09/07/16 22:30 Potassium Chloride (Klor-Con) 20 meq 1X ONCE 09/07/16 23:00 09/07/16 23:01 DC 09/08/16 01:38 20 MEQ Prochlorperazine Edisylate (Compazine) 10 mg PRN Q6HRS PRN 09/11/16 10:30 09/11/16 10:49 10 MG Prochlorperazine Edisylate 5 mg 5 mg PACU PRN PRN 09/17/16 07:00 09/18/16 06:59 Propofol (Diprivan) 20 ml @ As Directed STK-MED ONCE 09/09/16 14:51 09/09/16 14:52 DC Sevelamer Carbonate (Renvela) 2,400 mg TIDWMEALS 09/08/16 12:00 09/16/16 16:31 2,400 MG Sodium Thiosulfate 25 gm 25 gm 3X/WEEK 09/11/16 09:00 UNV Sodium Thiosulfate 25 gm/ Sodium Chloride 100 ml @ 100 mls/hr 3X/WEEK@16 09/11/16 16:00 09/16/16 16:31 100 MLS/HR Sodium Thiosulfate/ Sodium Chloride (Sodium Thiosulfate/Iv Sodium Chloride 0.9% 100ml) 100 ml @ 100 mls/hr 1X ONCE 09/12/16 16:00 09/12/16 16:59 DC 09/12/16 16:00 100 MLS/HR Sodium Chloride (Iv Sodium Chloride 0.9% 500ml Bag) 500 ml @ 500 mls/hr 1X ONCE 09/07/16 21:00 09/07/16 21:59 DC 09/07/16 21:04 500 MLS/HR Sodium Chloride (Iv Sodium Chloride 0.9% 1000ml Bag) 1,000 ml @ 0 mls/hr Q0M 09/17/16 12:00 Sodium Chloride (Normal Saline Flush) 10 ml 1X PRN PRN 09/14/16 10:15 09/15/16 10:14 DC Tramadol HCl (Ultram) 50 mg PRN Q6HRS PRN 09/10/16 13:45 09/11/16 08:39 50 MG Vancomycin HCl 500 mg/Sodium Chloride 100 ml @ 100 mls/hr 1X ONCE 09/14/16 13:00 09/14/16 13:59 DC 09/14/16 15:30 100 MLS/HR Vancomycin HCl 1 each 1 each 1X ONCE 09/11/16 21:30 09/11/16 21:30 DC Vancomycin HCl/ Sodium Chloride (Iv Sodium Chloride 0.9% 100ml) 100 ml @ 100 mls/hr QMWF 09/16/16 16:00 09/16/16 16:31 100 MLS/HR Vancomycin HCl/ Sodium Chloride (Iv Sodium Chloride 0.9% 500ml Bag) 500 ml @ 250 mls/hr Q48H 09/09/16 22:00 09/09/16 22:00 DC Vitamin A/Vitamin D (Vitamin A & D Ointment) 1 marie TID 09/08/16 09:00 09/16/16 20:37 1 MARIE Lab Laboratory Tests Test 09/16/16 11:43 09/16/16 17:22 09/16/16 21:04 09/17/16 07:18 Glucose (Fingerstick) 80mg/dL (70-99) 164mg/dL (70-99) 190mg/dL (70-99) 200mg/dL (70-99) Test 09/17/16 09:00 Sodium Level 141mmol/L (136-145) Potassium Level 4.3mmol/L (3.5-5.1) Chloride Level 95mmol/L (98-107) Carbon Dioxide Level 24mmol/L (21-32) Anion Gap 22 (6-14) Blood Urea Nitrogen 20mg/dL (8-26) Creatinine 2.7mg/dL (0.7-1.3) Estimated GFR (Cockcroft-Gault) 22.5 Glucose Level 209mg/dL (70-99) Calcium Level 8.6mg/dL (8.5-10.1) Phosphorus Level 2.2mg/dL (2.6-4.7) Albumin 2.3g/dL (3.4-5.0) FILIPPO RODRIGUES MD Sep 17, 2016 10:42
[2016-09-17] MEDS ORDERED: CYPROHEPTADINE 4 MG TABLET. PO PRN (10:45)
[2016-09-17] MEDS ORDERED: DEX IP ONE (10:45)
[2016-09-17] MEDS ORDERED: PERITONEAL LOW CA IP ONE (10:45)
[2016-09-17] MEDS ORDERED: SODIUM PHOSPHATE 20 MMOL in IV DEXTROSE 5% 250 ML IV ONE (11:00)
[2016-09-17] MEDS: ANTI-COAG MONITOR BY PHARMACY. MC PRN (11:54)
[2016-09-17] MEDS ORDERED: IV NORMAL SALINE 1000ML BAG 1,000 ML IV SCH (12:00)
--- NOTE | 2016-09-17 13:21 | PDOC ---
PROGRESS NOTES Chief Complaint Chief Complaint Scrotal cellulitis open wound 1. 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 on zosyn and vanco, diflucan. wound debridement in OR by Dr Arellano 2. Pain control: on low dose fentanyl patch 3. 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 4. left arm AVF 3weeks, with steal syndrome, better with AVF ligation 09/09 5. hypokalemia: resolved; now borderline high. monitor 5. Anemia: stable. CKD induced. in EPO w/HD 6. DM2, mod control 7. CAD: S/P CABG in 2004. no acute issues. cont home meds 8. pAFib: rate controlled on low dose carvedilol only 9. OAC: on eliquis 10. dementia, mild 11. delirium, likely 2/2 uremia with sepsis some sundowning previously 12. abn CT findings: 2 pancreatic lesions, adrenal lesion 3.8cm, stable. CA19.9 WNL. d/ 13. Palliative consult: DNR/DNI, History of Present Illness History of Present Illness surg today 1pm debridement planned cont other .he feels well no event Vitals Vitals Vital Signs Date Time Temp Pulse Resp B/P Pulse Ox O2 Delivery O2 Flow Rate FiO2 09/17/16 13:12 12 96 Nasal Cannula 2.0 09/17/16 12:55 97.6 107 173/78 97.6 Physical Exam General: Alert, Cooperative, No acute distress, Other (sleeping) Heart: Normal S1, Normal S2 Lungs: Clear Abdomen: Soft Extremities: No edema, Other (bilateral distal necrotic areas compatible with calciphylaxis) Skin: Other Labs LABS Laboratory Tests Test 09/16/16 17:22 09/16/16 21:04 09/17/16 07:18 09/17/16 09:00 Glucose (Fingerstick) 164mg/dL (70-99) 190mg/dL (70-99) 200mg/dL (70-99) Sodium Level 141mmol/L (136-145) Potassium Level 4.3mmol/L (3.5-5.1) Chloride Level 95mmol/L (98-107) Carbon Dioxide Level 24mmol/L (21-32) Anion Gap 22 (6-14) Blood Urea Nitrogen 20mg/dL (8-26) Creatinine 2.7mg/dL (0.7-1.3) Estimated GFR (Cockcroft-Gault) 22.5 Glucose Level 209mg/dL (70-99) Calcium Level 8.6mg/dL (8.5-10.1) Phosphorus Level 2.2mg/dL (2.6-4.7) Albumin 2.3g/dL (3.4-5.0) Test 09/17/16 11:24 Glucose (Fingerstick) 186mg/dL (70-99) Assessment and Plan Assessmemt and Plan Problems Medical Problems: (1) Open wound of scrotum Status: Acute Problems: Comment Review of Relevant I have reviewed the following items robert (where applicable) has been applied. Labs Laboratory Tests Test 09/15/16 16:52 09/15/16 20:36 09/16/16 06:05 09/16/16 11:43 Glucose (Fingerstick) 102mg/dL (70-99) 138mg/dL (70-99) 80mg/dL (70-99) Sodium Level 138mmol/L (136-145) Potassium Level 3.9mmol/L (3.5-5.1) Chloride Level 97mmol/L (98-107) Carbon Dioxide Level 30mmol/L (21-32) Anion Gap 11 (6-14) Blood Urea Nitrogen 18mg/dL (8-26) Creatinine 2.5mg/dL (0.7-1.3) Estimated GFR (Cockcroft-Gault) 24.6 Glucose Level 115mg/dL (70-99) Calcium Level 8.4mg/dL (8.5-10.1) Phosphorus Level 2.7mg/dL (2.6-4.7) Albumin 2.2g/dL (3.4-5.0) Test 09/16/16 17:22 09/16/16 21:04 09/17/16 07:18 09/17/16 09:00 Glucose (Fingerstick) 164mg/dL (70-99) 190mg/dL (70-99) 200mg/dL (70-99) Sodium Level 141mmol/L (136-145) Potassium Level 4.3mmol/L (3.5-5.1) Chloride Level 95mmol/L (98-107) Carbon Dioxide Level 24mmol/L (21-32) Anion Gap 22 (6-14) Blood Urea Nitrogen 20mg/dL (8-26) Creatinine 2.7mg/dL (0.7-1.3) Estimated GFR (Cockcroft-Gault) 22.5 Glucose Level 209mg/dL (70-99) Calcium Level 8.6mg/dL (8.5-10.1) Phosphorus Level 2.2mg/dL (2.6-4.7) Albumin 2.3g/dL (3.4-5.0) Test 09/17/16 11:24 Glucose (Fingerstick) 186mg/dL (70-99) Laboratory Tests Test 09/16/16 17:22 09/16/16 21:04 09/17/16 07:18 09/17/16 09:00 Glucose (Fingerstick) 164mg/dL (70-99) 190mg/dL (70-99) 200mg/dL (70-99) Sodium Level 141mmol/L (136-145) Potassium Level 4.3mmol/L (3.5-5.1) Chloride Level 95mmol/L (98-107) Carbon Dioxide Level 24mmol/L (21-32) Anion Gap 22 (6-14) Blood Urea Nitrogen 20mg/dL (8-26) Creatinine 2.7mg/dL (0.7-1.3) Estimated GFR (Cockcroft-Gault) 22.5 Glucose Level 209mg/dL (70-99) Calcium Level 8.6mg/dL (8.5-10.1) Phosphorus Level 2.2mg/dL (2.6-4.7) Albumin 2.3g/dL (3.4-5.0) Test 09/17/16 11:24 Glucose (Fingerstick) 186mg/dL (70-99) Microbiology 09/07/16 Blood Culture - Final, Complete NO GROWTH AFTER 5 DAYS Medications Current Medications Meropenem/Sodium Chloride (Merrem/Iv Sodium Chloride 0.9% 100ml) 100 ml @ 200 mls/hr Q8HRS IV ; Start 09/07/16 at 22:00; Status UNV Vancomycin HCl 1 each 1 each PRN DAILY PRN MC SEE COMMENTS Last administered on 09/14/16 12:04; Start 09/07/16 at 20:45 Sodium Chloride (Iv Sodium Chloride 0.9% 500ml Bag) 500 ml @ 500 mls/hr 1X ONCE IV Last administered on 09/07/16 21:04; Start 09/07/16 at 21:00; Stop at 21:59; Status DC Hydromorphone HCl 1 mg 1 mg 1X ONCE IV Last administered on 09/07/16 20:59; Start 09/07/16 at 21:00; Stop 09/07/16 at 21:01; Status DC Meropenem 500 mg/ Sodium Chloride 50 ml @ 100 mls/hr QHS IV Last administered on 09/07/16 21:05; Start 09/07/16 at 21:00; Stop 09/08/16 at 07:59; Status DC Vancomycin HCl/ Sodium Chloride (Iv Sodium Chloride 0.9% 500ml Bag) 500 ml @ 250 mls/hr 1X ONCE IV Last administered on 09/07/16 22:07; Start 09/07/16 at 21:30; Stop 09/07/16 at 23:29; Status DC Ondansetron HCl (Zofran) 4 mg PRN Q8HRS PRN IV NAUSEA/VOMITING Last administered on 09/07/16 22:43; Start 09/07/16 at 22:00; Stop 09/08/16 at 21:59 ; Status DC Morphine Sulfate 4 mg 4 mg PRN Q2HR PRN IV SEVERE PAIN Last administered on 21:12; Start 09/07/16 at 22:00; Stop 09/08/16 at 21:59; Status DC Sodium Chloride (Iv Sodium Chloride 0.9% 1000ml Bag) 1,000 ml @ 75 mls/hr [id number] IV Last administered on 09/08/16 12:56; Start 09/07/16 at 21:52; Stop 09/08/16 at 21:51; Status DC Insulin Aspart (Novolog) 0-7 UNITS TIDWMEALS SQ ; Start 09/08/16 at 08:00; Stop 09/08/16 at 08:00; Status DC Dextrose (Dextrose 50%-Water Syringe) 12.5 gm PRN Q15MIN PRN IV SEE COMMENTS Last administered on 09/08/16 21:03; Start 09/07/16 at 22:30 Allopurinol (Zyloprim) 100 mg DAILY PO Last administered on 09/16/16 11:40; Start 09/08/16 at 09:00 Apixaban (Eliquis) 2.5 mg DAILY PO Last administered on 09/08/16 07:59; Start 09/08/16 at 09:00; Stop 09/08/16 at 10:43; Status DC Atorvastatin Calcium (Lipitor) 40 mg QHS PO Last administered on 09/16/16 20: 31; Start 09/08/16 at 21:00 Carvedilol (Coreg) 3.125 mg BIDWMEALS PO Last administered on 09/16/16 16:32; Start 09/08/16 at 08:00 Cinacalcet (Sensipar) 30 mg DAILY PO Last administered on 09/16/16 11:40; Start 09/08/16 at 09:00; Stop 09/17/16 at 10:47; Status DC Glimepiride (Amaryl) 4 mg DAILY PO Last administered on 09/08/16 07:59; Start 09/08/16 at 09:00; Stop 09/09/16 at 13:46; Status DC Acetaminophen/ Hydrocodone Bitart (Lortab 5/325) 1 tab PRN Q6HRS PRN PO SEVERE PAIN Last administered on 09/09/16 06:16; Start 09/07/16 at 22:30; Stop at 14:14; Status DC Polyethylene Glycol (miraLAX PACKET) 17 gm PRN DAILY PRN PO CONSTIPATION; Start 09/07/16 at 22:30 Sevelamer Carbonate (Renvela) 2.4 gm TIDWMEALS PO Last administered on 07:59; Start 09/08/16 at 08:00; Stop 09/08/16 at 12:01; Status DC Vitamin A/Vitamin D (Vitamin A & D Ointment) 1 katie TID TP Last administered on 09/16/16 20:37; Start 09/08/16 at 09:00 Docusate Sodium (Colace) 100 mg PRN DAILY PRN PO CONSTIPATION; Start 09/07/16 at 22:45 Docusate Sodium (Colace) 100 mg DAILY PO Last administered on 09/16/16 11:40; Start 09/08/16 at 09:00 Potassium Chloride (Klor-Con) 20 meq 1X ONCE PO Last administered on 01:38; Start 09/07/16 at 23:00; Stop 09/07/16 at 23:01; Status DC Insulin Aspart (Novolog) 0-7 UNITS QIDACHS SQ Last administered on 09/13/16 17 :53; Start 09/07/16 at 22:45 Info (Anti-Coagulation Monitoring By Pharmacy) 1 each PRN DAILY PRN MC SEE COMMENTS Last administered on 09/17/16 11:54; Start 09/07/16 at 23:45 Vancomycin HCl 1 each 1 each 1X ONCE MC ; Start 09/11/16 at 21:30; Stop at 21:30; Status DC Vancomycin HCl 1.5 gm/Sodium Chloride 500 ml @ 250 mls/hr Q48H IV ; Start 09/09 at 22:00; Stop 09/09/16 at 22:00; Status DC Piperacillin Sod/ Tazobactam Sod/ Sodium Chloride (Zosyn/Iv Sodium Chloride 0.9 % 50ml) 50 ml @ 100 mls/hr Q8HRS IV Last administered on 09/10/16 06:11; Start 09/08/16 at 08:30; Stop 09/10/16 at 09:00; Status DC Fluconazole (Diflucan) 100 mg DAILY PO Last administered on 09/16/16 11:40; Start 09/08/16 at 09:00 Darbepoetin Lasha (Aranesp) 60 mcg [id number] SQ Last administered on 09/15/16 21 :23; Start 09/08/16 at 21:00 Apixaban (Eliquis) 2.5 mg BID PO Last administered on 09/16/16 20:31; Start at 21:00 Vancomycin HCl 1 each 1X ONCE MC Last administered on 09/09/16 06:00; Start 09/09/16 at 06:00; Stop 09/09/16 at 06:01; Status DC Sevelamer Carbonate (Renvela) 2,400 mg TIDWMEALS PO Last administered on 16:31; Start 09/08/16 at 12:00 Insulin Aspart (Novolog) 8 units TIDAC SQ Last administered on 09/10/16 08:41 ; Start 09/08/16 at 12:00; Stop 09/10/16 at 10:17; Status DC Lorazepam (Ativan) 0.5 mg PRN Q6HRS PRN PO ANXIETY / AGITATION Last administered on 09/11/16 11:45; Start 09/08/16 at 13:00 Fentanyl Citrate (Fentanyl 2ml Vial) 25 mcg PRN Q5MIN PRN IV MILD PAIN; Start 09/09/16 at 07:00; Stop 09/10/16 at 06:59; Status DC Fentanyl Citrate (Fentanyl 2ml Vial) 50 mcg PRN Q5MIN PRN IV MODERATE PAIN; Start 09/09/16 at 07:00; Stop 09/10/16 at 06:59; Status DC Morphine Sulfate 1 mg PRN Q10MIN PRN IV SEVERE PAIN; Start 09/09/16 at 07:00; Stop 09/10/16 at 06:59; Status DC Lidocaine HCl 2 ml PRN 1X PRN ID PRIOR TO IV START; Start 09/09/16 at 07:00; Stop 09/10/16 at 06:59; Status DC Hydromorphone HCl (Dilaudid) 0.5 mg PRN Q10MIN PRN IV SEV PAIN, Second choice; Start 09/09/16 at 07:00; Stop 09/10/16 at 06:59; Status DC Prochlorperazine Edisylate 5 mg 5 mg PACU PRN PRN IV NAUSEA, MRX1; Start at 07:00; Stop 09/10/16 at 06:59; Status DC Sodium Chloride (Iv Sodium Chloride 0.9% 1000ml Bag) 1,000 ml @ 0 mls/hr Q0M IV ; Start 09/09/16 at 12:00; Stop 09/10/16 at 10:51; Status DC Morphine Sulfate 4 mg PRN Q2HR PRN IV SEVERE PAIN Last administered on 10:43; Start 09/09/16 at 01:00; Stop 09/11/16 at 15:23; Status DC Lidocaine HCl 30 ml [employer]-MED ONCE .ROUTE ; Start 09/09/16 at 07:12; Stop at 07:13; Status Cancel Cellulose 1 each STK-MED ONCE .ROUTE ; Start 09/09/16 at 07:12; Stop 09/09/16 at 07:13; Status Cancel Papaverine HCl 60 mg 60 mg STK-MED ONCE .ROUTE ; Start 09/09/16 at 07:13; Stop 09/09/16 at 07:14; Status Cancel Sodium Chloride 1,000 ml @ 1,000 mls/hr Q1H PRN IV hypotension; Start 09/09/16 at 07:30; Stop 09/09/16 at 13:29; Status DC Albumin Human (Albuminar) 200 ml @ 200 mls/hr 1X PRN PRN IV Hypotension Last administered on 09/09/16t 09:37; Start 09/09/16 at 07:30; Stop 09/09/16 at 13:29 ; Status DC Acetaminophen (Tylenol) 500 mg 1X PRN PRN PO MILD PAIN / TEMP; Start 09/09/16 at 07:30; Stop 09/10/16 at 07:29; Status DC Diphenhydramine HCl (Benadryl) 25 mg 1X PRN PRN IV ITCHING; Start 09/09/16 at 07:30; Stop 09/10/16 at 07:29; Status DC Diphenhydramine HCl (Benadryl) 25 mg 1X PRN PRN IV ITCHING; Start 09/09/16 at 07:30; Stop 09/10/16 at 07:29; Status DC Labetalol HCl (Normodyne) 10 mg PRN Q1HR PRN IVP SBP > 180; Start 09/09/16 at 07:30; Stop 09/10/16 at 07:29; Status DC Clonidine HCl 0.1 mg 0.1 mg 1X PRN PRN PO SBP > 180; Start 09/09/16 at 07:30; Stop 09/10/16 at 07:29; Status DC Sodium Chloride (Iv Sodium Chloride 0.9% 1000ml Bag) 1,000 ml @ 400 mls/hr Q2H30M PRN IV PATENCY; Start 09/09/16 at 07:30; Stop 09/09/16 at 19:29; Status DC Info 1 each 1 each PRN DAILY PRN MC SEE COMMENTS; Start 09/09/16 at 07:30; Stop 09/14/16 at 10:15; Status DC Heparin Sodium (Porcine) 5000 unit/Sodium Chloride 505 ml @ 505 mls/hr 1X PERIOP ONCE IRR ; Start 09/09/16 at 09:00; Stop 09/09/16 at 09:59; Status DC Cefazolin Sodium 1 gm/Sodium Chloride 500 ml @ 500 mls/hr 1X PERIOP ONCE IRR ; Start 09/09/16 at 09:00; Stop 09/09/16 at 09:59; Status DC Cefazolin Sodium (Ancef 1gm Ivpb For Omni) 0 ml @ As Directed STK-MED ONCE IV ; Start 09/09/16 at 13:23; Stop 09/09/16 at 13:24; Status DC Acetaminophen/ Hydrocodone Bitart (Lortab 5/325) 1 tab PRN Q4HRS PRN PO PAIN; Start 09/09/16 at 14:15; Stop 09/11/16 at 11:52; Status DC Acetaminophen/ Hydrocodone Bitart (Lortab 5/325) 2 tab PRN Q4HRS PRN PO PAIN Last administered on 09/11/16t 04:49; Start 09/09/16 at 14:15; Stop 09/11/16 at 11:52; Status DC Midazolam HCl (Versed) 2 mg STK-MED ONCE .ROUTE ; Start 09/09/16 at 14:06; Stop 09/09/16 at 14:07; Status DC Fentanyl Citrate 100 mcg 100 mcg STK-MED ONCE .ROUTE ; Start 09/09/16 at 14:06; Stop 09/09/16 at 14:07; Status DC Vancomycin HCl/ Sodium Chloride (Iv Sodium Chloride 0.9% 100ml) 100 ml @ 100 mls/hr QMWF IV Last administered on 09/09/16t 17:36; Start 09/09/16 at 16:00; Stop 09/11/16 at 15:32; Status DC Lidocaine HCl 20 ml STK-MED ONCE .ROUTE ; Start 09/09/16 at 14:11; Stop at 14:12; Status DC Lidocaine HCl 20 ml STK-MED ONCE .ROUTE ; Start 09/09/16 at 14:11; Stop at 14:12; Status Cancel Cellulose 1 each STK-MED ONCE .ROUTE ; Start 09/09/16 at 14:12; Stop 09/09/16 at 14:13; Status Cancel Papaverine HCl 60 mg 60 mg STK-MED ONCE .ROUTE ; Start 09/09/16 at 14:12; Stop 09/09/16 at 14:13; Status DC Propofol (Diprivan) 20 ml @ As Directed STK-MED ONCE IV ; Start 09/09/16 at 14: 51; Stop 09/09/16 at 14:52; Status DC Amoxicillin/ Clavulanate Potassium (Augmentin 500/ 125mg) 1 tab DAILY PO Last administered on 09/10/16 10:43; Start 09/10/16 at 10:00; Stop 09/11/16 at 10:47 ; Status DC Insulin Aspart (Novolog) 5 units TIDAC SQ Last administered on 09/13/16 17:51 ; Start 09/10/16 at 11:30 Insulin Detemir (Levemir) 10 units QHS SQ Last administered on 09/10/16 21:46 ; Start 09/10/16 at 21:00; Stop 09/11/16 at 10:42; Status DC Sodium Thiosulfate 25 gm 25 gm 3X/WEEK IV ; Start 09/11/16 at 09:00; Status UNV Magnesium Sulfate/ Dextrose 50 ml @ 25 mls/hr PRN DAILY PRN IV for Mag < 1.7 on am labs; Start 09/10/16 at 10:45 Sodium Thiosulfate 25 gm/ Sodium Chloride 100 ml @ 100 mls/hr 3X/WEEK@16 IV Last administered on 09/16/16 16:31; Start 09/11/16 at 16:00 Amino Acids/ Glycerin/ Electrolytes (Procalamine) 1,000 ml @ 80 mls/hr [id number] IV Last administered on 09/17/16 02:38; Start 09/10/16 at 11:30 Fentanyl Citrate (Fentanyl 2ml Vial) 25 mcg PRN Q2HR PRN IV PAIN Last administered on 09/13/16 17:02; Start 09/10/16 at 13:00; Stop 09/13/16 at 18:42 ; Status DC Albuterol Sulfate (Ventolin Neb Soln) 2.5 mg PRN Q4HRS PRN NEB SHORTNESS OF BREATH Last administered on 09/12/16 08:56; Start 09/10/16 at 13:30 Tramadol HCl (Ultram) 50 mg PRN Q6HRS PRN PO PAIN Last administered on 08:39; Start 09/10/16 at 13:45 Ondansetron HCl (Zofran) 4 mg PRN Q6HRS PRN IV NAUSEA/VOMITING Last administered on 09/11/16 08:39; Start 09/10/16 at 19:15 Calcium Carbonate/ Glycine (Tums) 500 mg TID PRN PO INDIGESTION; Start at 19:15; Stop 09/17/16 at 10:47; Status DC Pantoprazole Sodium (Protonix) 40 mg DAILYAC PO Last administered on 09/11/16 08:38; Start 09/10/16 at 20:00 Prochlorperazine Edisylate (Compazine) 10 mg PRN Q6HRS PRN IV NAUSEA/VOMITING Last administered on 09/11/16 10:49; Start 09/11/16 at 10:30 Insulin Detemir (Levemir) 15 units QHS SQ Last administered on 09/16/16 22:11 ; Start 09/11/16 at 21:00 Metoclopramide HCl 5 mg 5 mg PRN Q6HRS PRN IV NAUSEA/VOMITING Last administered on 09/11/16 20:55; Start 09/11/16 at 10:45 Piperacillin Sod/ Tazobactam Sod/ Sodium Chloride (Zosyn/Iv Sodium Chloride 0.9 % 50ml) 50 ml @ 100 mls/hr Q8HRS IV Last administered on 09/17/16 05:38; Start 09/11/16 at 14:00 Oxycodone/ Acetaminophen 1 tab 1 tab PRN Q4HRS PRN PO PAIN Last administered on 09/13/16 19:51; Start 09/11/16 at 12:00 Sodium Thiosulfate/ Sodium Chloride (Sodium Thiosulfate/Iv Sodium Chloride 0.9% 100ml) 100 ml @ 100 mls/hr 1X ONCE IV Last administered on 09/12/16 16:00; Start 09/12/16 at 16:00; Stop 09/12/16 at 16:59; Status DC Lorazepam (Ativan) 1 mg 1X ONCE IV ; Start 09/11/16 at 18:00; Stop 09/11/16 at 18:01; Status DC Haloperidol Lactate (Haldol) 2 mg PRN Q24HRS PRN IVP AGITATION Last administered on 09/14/16 11:04; Start 09/11/16 at 18:00; Stop 09/14/16 at 15:06 ; Status DC Lorazepam 1 mg 1 mg 1X ONCE IV Last administered on 09/12/16 03:14; Start at 01:00; Stop 09/12/16 at 01:01; Status DC Sodium Chloride (Iv Sodium Chloride 0.9% 1000ml Bag) 1,000 ml @ 1,000 mls/hr Q1H PRN IV hypotension; Start 09/12/16 at 08:00; Stop 09/12/16 at 13:59; Status DC Diphenhydramine HCl 50 mg 50 mg 1X PRN PRN IV ITCHING Last administered on 09/12 09:06; Start 09/12/16 at 08:45; Stop 09/12/16 at 16:00; Status DC Sodium Chloride (Iv Sodium Chloride 0.9% 1000ml Bag) 1,000 ml @ 400 mls/hr Q2H30M PRN IV PATENCY; Start 09/12/16 at 08:00; Stop 09/12/16 at 19:59; Status DC Info (PHARMACY MONITORING -- do not chart) 1 each PRN DAILY PRN MC SEE COMMENTS ; Start 09/12/16 at 08:45; Status UNV Lorazepam 0.5 mg 0.5 mg PRN Q6HRS PRN IV ANXIETY / AGITATION Last administered on 09/14/16 23:37; Start 09/12/16 at 11:00 Vancomycin HCl/ Sodium Chloride (Iv Sodium Chloride 0.9% 100ml) 100 ml @ 100 mls/hr 1X ONCE IV Last administered on 09/12/16 14:40; Start 09/12/16 at 13: 00; Stop 09/12/16 at 13:59; Status DC Fentanyl Citrate (Fentanyl 2ml Vial) 50 mcg PRN Q2HR PRN IV PAIN Last administered on 09/17/16 13:12; Start 09/13/16 at 18:45 Morphine Sulfate 1 mg PRN Q2HR PRN IV PAIN Last administered on 09/15/16 08:51 ; Start 09/13/16 at 18:45; Stop 09/15/16 at 10:39; Status DC Lidocaine (Lidoderm) 1 patch DAILY TD ; Start 09/13/16 at 19:00; Stop 09/13/16 at 19:16; Status DC Lidocaine HCl 1 katie 1 katie TID TP Last administered on 09/16/16 20:37; Start at 21:00 Sodium Chloride (Iv Sodium Chloride 0.9% 1000ml Bag) 1,000 ml @ 1,000 mls/hr Q1H PRN IV hypotension; Start 09/14/16 at 10:06; Stop 09/14/16 at 16:05; Status DC Sodium Chloride (Normal Saline Flush) 10 ml 1X PRN PRN IV AP catheter pack; Start 09/14/16 at 10:15; Stop 09/15/16 at 10:14; Status DC Sodium Chloride 10 ml 10 ml 1X PRN PRN IV [employer] catheter pack; Start 09/14/16 at 10:15; Stop 09/15/16 at 10:14; Status DC Sodium Chloride (Iv Sodium Chloride 0.9% 1000ml Bag) 1,000 ml @ 400 mls/hr Q2H30M PRN IV PATENCY; Start 09/14/16 at 10:06; Stop 09/14/16 at 22:05; Status DC Info 1 each 1 each PRN DAILY PRN MC SEE COMMENTS; Start 09/14/16 at 10:15 Vancomycin HCl 500 mg/Sodium Chloride 100 ml @ 100 mls/hr 1X ONCE IV Last administered on 09/14/16 15:30; Start 09/14/16 at 13:00; Stop 09/14/16 at 13:59 ; Status DC Vancomycin HCl/ Sodium Chloride (Iv Sodium Chloride 0.9% 100ml) 100 ml @ 100 mls/hr QMWF IV Last administered on 09/16/16 16:31; Start 09/16/16 at 16:00 Haloperidol Lactate (Haldol) 2 mg PRN Q6HRS PRN IVP AGITATION Last administered on 09/16/16 20:37; Start 09/14/16 at 18:00 Fentanyl (Duragesic 50mcg/ Hr Patch) 1 patch Q3DAYS TD Last administered on 12:25; Start 09/15/16 at 11:00; Stop 09/15/16 at 16:57; Status DC Haloperidol Lactate 5 mg 5 mg PRN Q6HRS PRN IVP AGITATION Last administered on 09/17/16 03:40; Start 09/15/16 at 12:15 Sodium Chloride 1,000 ml @ 1,000 mls/hr Q1H PRN IV hypotension; Start 09/15/16 at 12:16; Stop 09/15/16 at 18:15; Status DC Albumin Human (Albuminar) 200 ml @ 200 mls/hr 1X PRN PRN IV Hypotension; Start 09/15/16 at 12:30; Stop 09/15/16 at 18:29; Status DC Acetaminophen (Tylenol) 500 mg 1X PRN PRN PO MILD PAIN / TEMP; Start 09/15/16 at 12:30; Stop 09/16/16 at 12:29; Status DC Diphenhydramine HCl (Benadryl) 25 mg 1X PRN PRN IV ITCHING; Start 09/15/16 at 12:30; Stop 09/16/16 at 12:29; Status DC Diphenhydramine HCl (Benadryl) 25 mg 1X PRN PRN IV ITCHING; Start 09/15/16 at 12:30; Stop 09/16/16 at 12:29; Status DC Labetalol HCl (Normodyne) 10 mg PRN Q1HR PRN IVP SBP > 180; Start 09/15/16 at 12:30; Stop 09/16/16 at 12:29; Status DC Clonidine HCl 0.1 mg 0.1 mg 1X PRN PRN PO SBP > 180; Start 09/15/16 at 12:30; Stop 09/16/16 at 12:29; Status DC Sodium Chloride (Iv Sodium Chloride 0.9% 1000ml Bag) 1,000 ml @ 400 mls/hr Q2H30M PRN IV PATENCY; Start 09/15/16 at 12:16; Stop 09/16/16 at 00:15; Status DC Info (PHARMACY MONITORING -- do not chart) 1 each PRN DAILY PRN MC SEE COMMENTS ; Start 09/15/16 at 12:30; Status UNV Fentanyl 1 patch 1 patch Q3DAYS TD Last administered on 09/15/16 17:26; Start 09/15/16 at 17:00 Sodium Chloride 1,000 ml @ 1,000 mls/hr Q1H PRN IV hypotension; Start 09/16/16 at 08:34; Stop 09/16/16 at 14:33; Status DC Albumin Human (Albuminar) 200 ml @ 200 mls/hr 1X PRN PRN IV Hypotension; Start 09/16/16 at 08:45; Stop 09/16/16 at 14:44; Status DC Acetaminophen (Tylenol) 500 mg 1X PRN PRN PO MILD PAIN / TEMP; Start 09/16/16 at 08:45; Stop 09/17/16 at 08:44; Status DC Diphenhydramine HCl (Benadryl) 25 mg 1X PRN PRN IV ITCHING; Start 09/16/16 at 08:45; Stop 09/17/16 at 08:44; Status DC Diphenhydramine HCl (Benadryl) 25 mg 1X PRN PRN IV ITCHING; Start 09/16/16 at 08:45; Stop 09/17/16 at 08:44; Status DC Labetalol HCl (Normodyne) 10 mg PRN Q1HR PRN IVP SBP > 180; Start 09/16/16 at 08:45; Stop 09/17/16 at 08:44; Status DC Clonidine HCl 0.1 mg 0.1 mg 1X PRN PRN PO SBP > 180; Start 09/16/16 at 08:45; Stop 09/17/16 at 08:44; Status DC Sodium Chloride (Iv Sodium Chloride 0.9% 1000ml Bag) 1,000 ml @ 400 mls/hr Q2H30M PRN IV PATENCY; Start 09/16/16 at 08:34; Stop 09/16/16 at 20:33; Status DC Info (PHARMACY MONITORING -- do not chart) 1 each PRN DAILY PRN MC SEE COMMENTS ; Start 09/16/16 at 08:45; Status UNV Nystatin 5 ml [id number] Last administered on 09/16/16t 16:31; Start at 13:00 Fentanyl Citrate (Fentanyl 2ml Vial) 25 mcg PRN Q5MIN PRN IV MILD PAIN; Start 09/17/16 at 07:00; Stop 09/18/16 at 06:59 Fentanyl Citrate (Fentanyl 2ml Vial) 50 mcg PRN Q5MIN PRN IV MODERATE PAIN; Start 09/17/16 at 07:00; Stop 09/18/16 at 06:59 Morphine Sulfate 1 mg PRN Q10MIN PRN IV SEVERE PAIN; Start 09/17/16 at 07:00; Stop 09/18/16 at 06:59 Lidocaine HCl 2 ml PRN 1X PRN ID PRIOR TO IV START; Start 09/17/16 at 07:00; Stop 09/18/16 at 06:59 Hydromorphone HCl (Dilaudid) 0.5 mg PRN Q10MIN PRN IV SEV PAIN, Second choice; Start 09/17/16 at 07:00; Stop 09/18/16 at 06:59 Prochlorperazine Edisylate 5 mg 5 mg PACU PRN PRN IV NAUSEA, MRX1; Start at 07:00; Stop 09/18/16 at 06:59 Sodium Chloride 1,000 ml @ 0 mls/hr Q0M IV ; Start 09/17/16 at 12:00 Sodium Phosphate/ Dextrose 256.6667 ml @ 64.167 m... 1X ONCE IV ; Start at 11:00; Stop 09/17/16 at 14:59 Cyproheptadine HCl 4 mg 4 mg PRN TID PRN PO ALLERGIES; Start 09/17/16 at 10:45 Peritoneal Dialysis Solution (Dianeal With 1.5% Dextrose) 2,000 ml @ 671.667 mls/hr 1X ONCE IP ; Start 09/17/16 at 10:45; Stop 09/17/16 at 13:43 Active Scripts Active Mupirocin Ointment (Mupirocin) 22 Gm Oint...g. 1 Katie TP TID Vitamin A & D Ointment (Vits A & D/White Pet/Lanolin) 56.7 Gm Oint...g. 1 Katie TP TID Diflucan (Fluconazole) 100 Mg Tablet 100 Mg PO DAILY Allopurinol 100 Mg Tablet 100 Mg PO DAILY Hydrocodone-Apap 5-325 (Hydrocodone Bit/Acetaminophen) 1 Each Tablet 1 Tab PO Q6HRS PRN Eliquis (Apixaban) 2.5 Mg Tablet 2.5 Mg PO DAILY Renvela (Sevelamer Carbonate) 2.4 Gm Powd.pack 2.4 Gm PO TIDWMEALS Miralax (Polyethylene Glycol 3350) 17 Gm Powd.pack 17 Gm PO PRN DAILY PRN Carvedilol 3.125 Mg Tablet 3.125 Mg PO BIDWMEALS Reported Sensipar (Cinacalcet Hcl) 30 Mg Tablet 1 Tab PO DAILY Glimepiride 2 Mg Tablet 4 Mg PO DAILY Novolog (Insulin Aspart) 100 Unit/1 Ml Cartridge 8 Unit SQ TIDAC Atorvastatin Calcium 40 Mg Tablet 1 Tab PO DAILY Vitals/I & O Vital Sign - Last 24 Hours 09/16/16 09/16/16 09/16/16 09/16/16 15:00 16:32 19:10 19:50 Temp 98.1 99.3 98.1 99.3 Pulse 85 85 94 Resp 18 B/P 131/73 131/73 129/66 Pulse Ox 100 99 O2 Delivery Nasal Cannula Room Air Nasal Cannula O2 Flow Rate 2.0 2.0 09/16/16 09/16/16 09/17/16 09/17/16 20:37 23:08 01:59 02:38 Temp 98.4 98.4 Pulse 105 Resp 18 20 B/P 146/75 Pulse Ox 95 95 O2 Delivery Nasal Cannula Room Air Nasal Cannula Nasal Cannula O2 Flow Rate 2.0 09/17/16 09/17/16 09/17/16 09/17/16 06:09 07:00 08:00 11:00 Temp 97.9 98.0 97.9 98.0 Pulse 105 105 Resp 22 B/P 136/70 140/76 Pulse Ox 98 96 O2 Delivery Nasal Cannula Room Air Nasal Cannula Nasal Cannula O2 Flow Rate 2.0 09/17/16 09/17/16 12:55 13:12 Temp 97.6 97.6 Pulse 107 Resp 12 12 B/P 173/78 Pulse Ox 96 96 O2 Delivery Nasal Cannula Nasal Cannula O2 Flow Rate 2.0 2.0 Intake and Output 09/16/16 09/16/16 09/17/16 14:59 22:59 06:59 Intake Total 200 ml 639 ml Output Total 0 ml Balance 200 ml 639 ml FLAVIO NINO MD Sep 17, 2016 13:21
[2016-09-17] MEDS ORDERED: PROPOFOL 20 ML IV ONE (13:48)
[2016-09-17] MEDS ORDERED: fentaNYL PF VIAL 100 MCG/2 ML VIAL ONE (13:48)
[2016-09-17] MEDS ORDERED: DEXAMETHASONE SOD PHOS 20 MG/5 ML VIAL. ONE (13:50)
[2016-09-17] MEDS ORDERED: ONDANSETRON PF 4 MG/2 ML VIAL. ONE (13:50)
[2016-09-17] MEDS ORDERED: POVIDONE-IODINE 10% TOPICAL OINTMENT 28GM TUBE. TP ONE (14:50)
[2016-09-17] MEDS ORDERED: SEVOFLURANE 61 TO 120 MINUTES. IH ONE (15:16)
[2016-09-17] MEDS ORDERED: LIDOCAINE 2% 100 MG/5 ML SYRINGE. ONE (15:17)
--- NOTE | 2016-09-17 15:25 | PDOC ---
BRIEF OPERATIVE NOTE Date: Sep 17, 2016 Pre-Op Diagnosis Penile/Scrotal wounds Post-Op Diagnosis Same Procedure Performed Debridement of penile/scrotal wounds Surgeon Eileen Anesthesia Type: General Specimens Obtained debridement material sent to lab for culture Findings same Complications none Additional Remarks Patient will need aggressive wound care DANO HORNE DO Sep 17, 2016 15:25
[2016-09-17] MEDS: VANCOMYCIN PER PHARMACY MC PRN (15:36)
[2016-09-17] MEDS ORDERED: INSULIN ASPART 100 UNIT/ML 10ML VIAL. SQ ONE ×2 (16:29→16:30)
--- NOTE | 2016-09-17 16:39 | OP ---
DATE OF SURGERY: 09/17/2016 PREOPERATIVE DIAGNOSIS: Penile/scrotal wound. POSTOPERATIVE DIAGNOSIS: Penile/scrotal wound. PROCEDURE: Debridement of penile wound, debridement of scrotal wound. SURGEON: Dano Horne D.O. ANESTHESIA: General. INDICATIONS AND JUDGMENT: This is an 85-year-old male with multiple comorbidities. He is a hemodialysis patient and diabetic. He has had a history of a wound on the ventral aspect of the penis for several weeks as well as a wound on the adjacent scrotum. This was cared for at home and then he was admitted to the hospital. He has been diagnosed with calciphylaxis. The wound has not been responding very well to antibiotic therapy. It was felt that he would benefit from debridement to remove the exudate and then hopefully began application of collagenase cream or Santyl to the wound bed to facilitate healing. The patient has been evaluated by the wound clinic. Thoughts were to debris the area and then have the Wound Clinic manage the local therapy and dressing changes. DESCRIPTION OF PROCEDURE: The patient was currently on antibiotic therapy; therefore, he was taken to the operating room and placed on the operating room table in supine position, given a general anesthetic with good results. The ventral aspect of the penis and scrotum were examined. This was thick, yellowish exudate that covers these wounds. After he had been prepped and draped in sterile fashion, I began to debride the wound and remove this exudative material. This was performed to the point that good viable tissue was observed. Following debridement of both the penile wound and the scrotal wound, Betadine cream was placed into the scrotal wound and 2 inch cream soaked in Betadine was placed around the penis over the penile wound. At the beginning of the case, I placed a 16-Macedonian Stevenson catheter so I could retract the penis cephalad so that the 2 wounds would not touch each other, as they had been doing. I decided to leave the catheter postoperatively and it was secured to the lower abdomen, so that the penis would not rest on the scrotal wound. After the dressing has had been placed and fluff dressings on the scrotum and the Betadine wrapped around the penis, mesh panties were then applied to hold these dressings in place. The patient was then taken to the recovery room in satisfactory condition. Plans will be to have Wound Clinic for dressing changes twice a day and hopefully can utilize some collagenase cream or Santyl type medication to treat the wounds. DANO HORNE DO DR: JOBY/raghu JOB#: [id number] / [id number]
[2016-09-17] MEDS: PANTOPRAZOLE 40 MG TABLET.DR. PO SCH (18:44)
[2016-09-17] MEDS: oxyCODONE/APAP 5/325 1 TAB TABLET PO PRN (18:44)
[2016-09-17] MEDS: ALLOPURINOL 100 MG TABLET. PO SCH (18:45)
[2016-09-17] MEDS: FLUCONAZOLE 100 MG TABLET. PO SCH (18:45)
[2016-09-17] MEDS: DOCUSATE SODIUM 100 MG CAPSULE. PO SCH (18:45)
[2016-09-17] MEDS: INSULIN DETEMIR 300 UNITS/3 ML INSULN.PEN. SQ SCH (21:00)
[2016-09-17] MEDS: ATORVASTATIN CALCIUM 40 MG TABLET. PO SCH (22:01)
[2016-09-17] MEDS: MORPHINE IR 15 MG TABLET PO PRN (22:01)
[2016-09-17] MEDS ORDERED: LORazepam 1 MG TABLET PO ONE (22:30)
[2016-09-17 23:35] LABS: BF CLARITY CLEAR; BF COLOR STRAW
[2016-09-18 03:05] VITALS: BP 133/73
[2016-09-18] MEDS: MORPHINE IR 15 MG TABLET PO PRN ×2 (04:48→21:15)
[2016-09-18] MEDS: PIPERACILLIN/TAZOBACTAM 2.25 GM in IV NORMAL SALINE 50ML 50 ML IV SCH ×3 (06:00→22:18)
[2016-09-18] MEDS: AMINO AC 3%/ELECTROLYTE/GLYCER 1,000 ML IV SCH ×2 (07:00→15:10)
[2016-09-18] MEDS: INSULIN ASPART 300 UNITS/3 ML INSULN.PEN SQ SCH ×7 (07:30→21:00)
[2016-09-18] MEDS: SEVELAMER CARBONATE 800 MG TABLET. PO SCH ×3 (08:00→17:54)
[2016-09-18] MEDS: VITS A & D/LANOLIN TOPICAL OINTMENT 56GM TUBE. TP SCH (08:03)
[2016-09-18] MEDS: LIDOCAINE 2% TOPICAL JELLY 30GM TUBE. TP SCH (08:03)
[2016-09-18] MEDS ORDERED: IV NORMAL SALINE 1000ML BAG 1,000 ML IV PRN (08:10)
[2016-09-18] MEDS ORDERED: DIALYSIS PATIENT. MC PRN ×2 (08:15)
[2016-09-18] MEDS ORDERED: 0.9 % SODIUM CHLORIDE 10 ML DISP.SYRIN. IV PRN ×2 (08:15)
[2016-09-18] MEDS: NYSTATIN 100,000 UNITS/ML 5 ML ORAL.SUSP. SWSW SCH ×4 (09:00→21:16)
--- NOTE | 2016-09-18 09:59 | PDOC ---
Dialysis Progress Note Dialysis Note Dialysis Note Seen on Hemodialysis, tolerating treatment Well Vitals on Hemodialysis: 109/22 93 afeb General Appearance: Awake: Alert Oriented x 3 Neck: No JVD or JVP Chest: CTA Oscar Heart: S1 S2 Abdomen - Soft NTND Extremities - No Edema ESRD: Dialysis as below F 180 NR 3.5 Hrs 3 K 2.5 Ca 140 Na 35 HC03 Qb 350 + Qd 500+ Heparin 0 Units Uf 1- 1.5 Kgs or to dry weight as tolerated May give 25-50 gms of 25% Albumin if needed to maintain Hemodynamic stability Treatment plan reviewed and discussed with physician assistant psychiatry Vitals Vital Signs Vital Signs Date Time Temp Pulse Resp B/P Pulse Ox O2 Delivery O2 Flow Rate FiO2 09/18/16 06:00 Nasal Cannula 09/18/16 03:05 98.7 90 20 133/73 95 2.0 98.7 Labs Last Labs Laboratory Tests Test 09/16/16 11:43 09/16/16 17:22 09/16/16 21:04 09/17/16 07:18 Glucose (Fingerstick) 80mg/dL (70-99) 164mg/dL (70-99) 190mg/dL (70-99) 200mg/dL (70-99) Test 09/17/16 09:00 09/17/16 11:24 09/17/16 16:00 09/17/16 18:04 Sodium Level 141mmol/L (136-145) Potassium Level 4.3mmol/L (3.5-5.1) Chloride Level 95mmol/L (98-107) Carbon Dioxide Level 24mmol/L (21-32) Anion Gap 22 (6-14) Blood Urea Nitrogen 20mg/dL (8-26) Creatinine 2.7mg/dL (0.7-1.3) Estimated GFR (Cockcroft-Gault) 22.5 Glucose Level 209mg/dL (70-99) Calcium Level 8.6mg/dL (8.5-10.1) Phosphorus Level 2.2mg/dL (2.6-4.7) Albumin 2.3g/dL (3.4-5.0) Glucose (Fingerstick) 186mg/dL (70-99) 226mg/dL (70-99) 205mg/dL (70-99) Test 09/17/16 22:40 Body Fluid Source Perit dialysate Body Fluid Color Straw Body Fluid Clarity Clear Body Fluid Nucleated Cells 68/cmm Body Fluid Mononuclear WBCs (%) 98% Body Fluid Polymorphonuclear Cells 1% Body Fluid Total RBCs Counted 73/cmm Body Fluid Other Cells (%) 1% Laboratory Tests Test 09/17/16 11:24 09/17/16 16:00 09/17/16 18:04 09/17/16 22:40 Glucose (Fingerstick) 186mg/dL (70-99) 226mg/dL (70-99) 205mg/dL (70-99) Body Fluid Source Perit dialysate Body Fluid Color Straw Body Fluid Clarity Clear Body Fluid Nucleated Cells 68/cmm Body Fluid Mononuclear WBCs (%) 98% Body Fluid Polymorphonuclear Cells 1% Body Fluid Total RBCs Counted 73/cmm Body Fluid Other Cells (%) 1% Assessment Assessment Problems Medical Problems: (1) Open wound of scrotum Status: Acute Problems: Plan Plan of Care Problems Medical Problems: (1) Open wound of scrotum Status: Acute FILIPPO RODRIGUES MD Sep 18, 2016 09:59
--- NOTE | 2016-09-18 10:46 | PDOC ---
PROGRESS NOTES Chief Complaint Chief Complaint Scrotal cellulitis open wound 1. 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 on zosyn and vanco, diflucan. wound debridement in OR on 09/[address] Arellano 2. Pain control: on low dose fentanyl patch 3. 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 4. left arm AVF 3weeks, with steal syndrome, better with AVF ligation 09/09 5. hypokalemia: resolved; now borderline high. monitor 5. Anemia: stable. CKD induced. in EPO w/HD 6. DM2, mod control 7. CAD: S/P CABG in 2004. no acute issues. cont home meds 8. pAFib: rate controlled on low dose carvedilol only 9. OAC: on eliquis 10. dementia, mild 11. delirium, likely 2/2 uremia with sepsis some sundowning previously 12. abn CT findings: 2 pancreatic lesions, adrenal lesion 3.8cm, stable. CA19.9 WNL. d/ 13. Palliative consult: DNR/DNI, History of Present Illness History of Present Illness sleeping. had HD this AM. daughters at bedside Vitals Vitals Vital Signs Date Time Temp Pulse Resp B/P Pulse Ox O2 Delivery O2 Flow Rate FiO2 09/18/16 06:00 Nasal Cannula 09/18/16 03:05 98.7 90 20 133/73 95 2.0 98.7 Physical Exam General: Alert, Cooperative, No acute distress, Other (sleeping) Heart: Normal S1, Normal S2 Lungs: Clear Abdomen: Soft Extremities: No edema, Other Skin: Other (bilateral distal necrotic areas compatible with calciphylaxis) Labs LABS Laboratory Tests Test 09/17/16 11:24 09/17/16 16:00 09/17/16 18:04 09/17/16 22:40 Glucose (Fingerstick) 186mg/dL (70-99) 226mg/dL (70-99) 205mg/dL (70-99) Body Fluid Source Perit dialysate Body Fluid Color Straw Body Fluid Clarity Clear Body Fluid Nucleated Cells 68/cmm Body Fluid Mononuclear WBCs (%) 98% Body Fluid Polymorphonuclear Cells 1% Body Fluid Total RBCs Counted 73/cmm Body Fluid Other Cells (%) 1% LING COOPER MD Sep 18, 2016 10:46
[2016-09-18 11:00] VITALS: BP 146/68
[2016-09-18] MEDS: VANCOMYCIN PER PHARMACY MC PRN ×2 (11:26→17:15)
[2016-09-18] MEDS: PANTOPRAZOLE 40 MG TABLET.DR. PO SCH (12:12)
[2016-09-18] MEDS: fentaNYL 12MCG/HR PATCH 1 PATCH PATCH.TD72 TD SCH (12:12)
[2016-09-18] MEDS: APIXABAN 2.5 MG TABLET. PO SCH ×2 (12:13→21:13)
[2016-09-18] MEDS: ALLOPURINOL 100 MG TABLET. PO SCH (12:13)
[2016-09-18] MEDS: FLUCONAZOLE 100 MG TABLET. PO SCH (12:14)
[2016-09-18] MEDS: DOCUSATE SODIUM 100 MG CAPSULE. PO SCH (12:15)
[2016-09-18] MEDS: CARVEDILOL 3.125 MG TABLET. PO SCH ×2 (12:15→17:53)
[2016-09-18] MEDS ORDERED: LIDOCAINE 1% / SOD BICARB 8.4% 20 ML VIAL. IJ ONE ×2 (13:09→13:30)
--- NOTE | 2016-09-18 13:49 | PDOC ---
Exam Channel Development Manager Channel Development Manager Joe Velasquez Lockstitch Lining Setter Heather Mckeon Pre-Procedure Diagnosis Pre-Procedure Diagnosis 85 YO male with penile/scrotal wounds. Picc requested for IV Abx. Post-Procedure Diagnosis Post-Procedure Diagnosis Same Procedure Performed Procedure Performed Sono/fluoro guided Power Picc insertion. Type of Anesthesia Type of Anesthesia Local Estimated Blood Loss EBL: Minimal Drain/Tubes Drains/Tubes Right basilic vein 5F 2L 45cm Powr Picc Condition of Patient Condition of Patient No change. No apparent complication. Disposition Disposition From IR return to [facility]. OK to use Power Picc. Full report to follow. LAWRENCE ALICIA MD Sep 18, 2016 13:49
--- NOTE | 2016-09-18 14:44 | PDOC ---
Infectious Disease Note Subjective Subjective Feeling ok, denies pain or upset stomach s/p PICC placement earlier today Vital Sign Vital Signs Vital Signs Date Time Temp Pulse Resp B/P Pulse Ox O2 Delivery O2 Flow Rate FiO2 09/18/16 12:15 94 146/68 09/18/16 11:00 97.5 18 95 Nasal Cannula 2.0 97.5 Physical Exam PHYSICAL EXAM GENERAL: Appears comfortable, in bed HEENT: Oral cavity dry LUNGS: Clear HEART: S1S2, no gallop, no murmur ABD: Obese, hyperactive BS, soft, no grimace to palpation. PDC intact. : Posterior penile and scrotal wounds EXT: No edema, no cyanosis. LUE AV fistula less erythema. BLE bandage intact BANKRUPTCY ATTORNEY: Sleeping SKIN: No rash RUE-PICC. (09/18). HDC. 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 Pancreatic lesions on CT Plan Plan of Care Cont Vanc, Zosyn & Fluconazole. wean soon to po Monitor labs/wounds D/w family Attending Co-Sign The patient was seen and interviewed as well as examined at the bedside. The chart was reviewed. The case was discussed. Agree with the plan of care. d/w family ORI PIPER BOAT BUILDER Sep 18, 2016 14:44 MARGARET RODRIGUES MD Sep 18, 2016 16:57
--- NOTE | 2016-09-18 14:49 | PDOC ---
Provider Note Provider Note Urology: Patient currently being attended by wound clinic nurses, discussed treatment. They will continue to do dressing changes and perhaps utilize Sentyl medication/ DANO HORNE DO Sep 18, 2016 14:49
[2016-09-18 15:00] VITALS: BP 132/57
[2016-09-18] MEDS: SODIUM THIOSULFATE IV SCH (15:11)
[2016-09-18] MEDS: NORMAL SALINE IV SCH (15:11)
[2016-09-18] MEDS ORDERED: COLLAGENASE 250 UNIT/GM TOPICAL OINTMENT 30GM TUBE. TP ONE (16:00)
[2016-09-18] MEDS: VANCOMYCIN 500 MG in IV NORMAL SALINE 100ML 100 ML IV SCH (17:52)
[2016-09-18 19:07] VITALS: BP 135/67
[2016-09-18] MEDS: ATORVASTATIN CALCIUM 40 MG TABLET. PO SCH (21:12)
[2016-09-18] MEDS: INSULIN DETEMIR 300 UNITS/3 ML INSULN.PEN. SQ SCH (21:27)
[2016-09-18 23:10] VITALS: BP 87/38
[2016-09-19 03:10] VITALS: BP 137/63
[2016-09-19] MEDS: oxyCODONE/APAP 5/325 1 TAB TABLET PO PRN ×2 (03:38→19:49)
[2016-09-19] MEDS: AMINO AC 3%/ELECTROLYTE/GLYCER 1,000 ML IV SCH ×2 (04:54→17:05)
[2016-09-19] MEDS: PIPERACILLIN/TAZOBACTAM 2.25 GM in IV NORMAL SALINE 50ML 50 ML IV SCH ×3 (06:19→21:30)
[2016-09-19 07:00] VITALS: BP 141/81
[2016-09-19] MEDS: SEVELAMER CARBONATE 800 MG TABLET. PO SCH ×4 (08:43→17:00)
[2016-09-19] MEDS: PANTOPRAZOLE 40 MG TABLET.DR. PO SCH (08:43)
[2016-09-19] MEDS: ALLOPURINOL 100 MG TABLET. PO SCH (08:48)
[2016-09-19] MEDS: DOCUSATE SODIUM 100 MG CAPSULE. PO SCH (08:49)
[2016-09-19] MEDS: APIXABAN 2.5 MG TABLET. PO SCH ×2 (08:49→21:17)
[2016-09-19] MEDS: NYSTATIN 100,000 UNITS/ML 5 ML ORAL.SUSP. SWSW SCH ×4 (08:49→21:18)
[2016-09-19] MEDS: CARVEDILOL 3.125 MG TABLET. PO SCH ×2 (08:49→17:00)
[2016-09-19] MEDS: FLUCONAZOLE 100 MG TABLET. PO SCH (08:51)
[2016-09-19] MEDS: INSULIN ASPART 300 UNITS/3 ML INSULN.PEN SQ SCH ×7 (09:00→21:00)
[2016-09-19] MEDS: COLLAGENASE 250 UNIT/GM TOPICAL OINTMENT 30GM TUBE. TP SCH (09:00)
[2016-09-19] MEDS: HALOPERIDOL LACTATE 5 MG/ML VIAL. IVP PRN (10:04)
[2016-09-19 11:00] VITALS: BP 135/75
--- NOTE | 2016-09-19 11:06 | RAD ---
Ultrasound and fluoro guided power PICC placement Indication: 85-year-old male with PE now and scrotal wounds. Poor peripheral IV access. PICC insertion has been requested for IV antibiotics. Fluoro time: 0.7 minutes Kerma-Area Product: 2 Gycm2 Anesthesia: Local only Sterility: All elements of maximal sterile barrier technique were utilized, including cap, mask, sterile gown, sterile gloves, large sterile sheet, appropriate hand hygiene, and 2% chlorhexidine for cutaneous antisepsis Procedure: Informed consent was obtained from the patient. He was placed supine on the angiography table. Preliminary ultrasound examination of right upper arm revealed wide patency of right basilic vein, which was documented with a hard copy ultrasound image. Right upper arm was then prepped and draped in the usual sterile fashion, utilizing all elements of maximal sterile barrier technique, as described above. Using aseptic technique, local anesthesia, direct ultrasound guidance, and the micropuncture system, successful percutaneous entry was achieved into right basilic vein at the level of distal humerus. A 5 [place]i dual lumen power PICC was trimmed to 45 cm in length, was inserted through a 5 [place]i peel-away sheath, and was easily advanced centrally under fluoroscopic control. Tip of the power PICC was positioned at upper right atrium. This was documented with a single fluoroscopic spot image. The PICC was then demonstrated to flush and aspirate normally, and was secured at the skin exit site utilizing suture and sterile dressing. The patient tolerated the procedure well without apparent complication. Impression: Successful, uneventful ultrasound and fluoro guided placement of right basilic vein 5 [place]i dual-lumen 45 cm power PICC, as described.
[2016-09-19] MEDS: LORazepam 0.5 MG TABLET PO PRN (11:23)
[2016-09-19] MEDS: VANCOMYCIN PER PHARMACY MC PRN (11:42)
--- NOTE | 2016-09-19 12:57 | PDOC ---
Infectious Disease Note Subjective Subjective Comfortable, denies pain Appetite slowing improving, eating more per family Fever Tmax 100.6 ROS ROS GEN: Denies chills, sweats CV: Denies chest pain RESP: Denies shortness of air, cough GI: Denies n/v/d Vital Sign Vital Signs Vital Signs Date Time Temp Pulse Resp B/P Pulse Ox O2 Delivery O2 Flow Rate FiO2 09/19/16 11:00 98.1 98 18 135/75 95 Room Air 98.1 09/18/16 23:10 2.0 Physical Exam PHYSICAL EXAM GENERAL: Appears comfortable, up in chair, relaxed appearance HEENT: Oral cavity dry LUNGS: Clear HEART: S1S2, no gallop, no murmur ABD: Obese, hyperactive BS, soft, no grimace to palpation. PDC intact. : Posterior penile and scrotal wounds EXT: No edema, no cyanosis. LUE AV fistula less erythema. BLE bandage intact RELIABILITY ENGINEER: Sleeping SKIN: No rash RUE-PICC. (09/18). HDC. clean Labs Lab Laboratory Tests Test 09/18/16 16:10 09/18/16 16:42 09/18/16 21:17 09/19/16 07:46 Vancomycin Level Trough 11.3mcg/mL (10.0-20.0) Vancomycin Last Dose Date Vancomycin Last Dose Time Glucose (Fingerstick) 143mg/dL (70-99) 187mg/dL (70-99) 183mg/dL (70-99) Test 09/19/16 11:47 Glucose (Fingerstick) 178mg/dL (70-99) Micro scrotum ANAEROBIC-AEROBIC CULTURE PENDING ANAEROBIC RES 1 PENDING AEROBIC CULT Final Final report AEROBIC RES 1 Final Comment No growth in 48 hours. 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 Pancreatic lesions on CT Plan Plan of Care Cont Vanc, Zosyn & Fluconazole. wean soon to po Monitor labs/wounds D/w family Attending Co-Sign The patient was seen and interviewed as well as examined at the bedside. The chart was reviewed. The case was discussed. Agree with the plan of care. change to po lawandain ORI PIPER EDI DEVELOPER Sep 19, 2016 12:57 MARGARET RODRIGUES MD Sep 19, 2016 15:30
[2016-09-19 15:00] VITALS: BP 109/72
--- NOTE | 2016-09-19 16:46 | PDOC ---
PROGRESS NOTES Chief Complaint Chief Complaint cc: Scrotal pain -Cellulitis of the scrotum -CAD -CHF -ME -Peripheral neuropathy -Tonsillectomy -Cataract extraction -CABG -Hyperlipidemia -Atrial fibrillation -Hypertension -Colonic polyps -GERD -Dialysis -DM -Parathyroid disease -Smoking -Anemia -Skin cancer -Chronic renal failure History of Present Illness History of Present Illness Mr. Ruiz was interacting without difficulty with us when we visited him. His was present, and we discussed his treatment with both of them. We also talked with the nurse about this case. The reports he has been doing well, and Mr. Ruiz had no symptoms to share with us. His wound had support in place and bandaging. There was no discharge. Vitals Vitals Vital Signs Date Time Temp Pulse Resp B/P Pulse Ox O2 Delivery O2 Flow Rate FiO2 09/19/16 11:00 98.1 98 18 135/75 95 Room Air 98.1 09/18/16 23:10 2.0 Physical Exam General: Cooperative, No acute distress, Other (He appeared lethargic.) Heart: Normal S1, Normal S2, No murmurs Lungs: Clear, Other (No chest retractions were present. ) Abdomen: Soft, No tenderness Extremities: No clubbing, No edema Skin: No rashes, No breakdown Labs LABS Laboratory Tests Test 09/18/16 21:17 09/19/16 07:46 09/19/16 11:47 09/19/16 16:32 Glucose (Fingerstick) 187mg/dL (70-99) 183mg/dL (70-99) 178mg/dL (70-99) 130mg/dL (70-99) Review of Systems Review of Systems Mr. Ruiz has not had problems with nausea or vomiting. He has not had any dizziness or lightheadedness. Assessment and Plan Assessmemt and Plan Problems Medical Problems: (1) Open wound of scrotum Status: Acute Assessment: Mr. Ruiz is an 85 year old male who presented with scrotal pain. -Cellulitis of the scrotum -CAD -CHF -ME -Peripheral neuropathy -Tonsillectomy -Cataract extraction -CABG -Hyperlipidemia -Atrial fibrillation -Hypertension -Colonic polyps -GERD -Dialysis -DM -Parathyroid disease -Smoking -Anemia -Skin cancer -Chronic renal failure Plan: 1. Referral to SNF 2. PT/OT 3. Recheck labs 4. Continue antimicrobial medications nystatin, vancomycin, fluconazole, and Zosyn 5. Continue pain, anxiety, delirium management with fentanyl, lorazepam, morphine, and haloperidol 6. Continue home medications 7. Continue pantoprazole 8. Appreciate consultation from subspecialists Problems: Comment Review of Relevant I have reviewed the following items robert (where applicable) has been applied. Labs Laboratory Tests Test 09/17/16 18:04 09/17/16 22:40 09/18/16 11:47 09/18/16 16:10 Glucose (Fingerstick) 205mg/dL (70-99) 166mg/dL (70-99) Body Fluid Source Perit dialysate Body Fluid Color Straw Body Fluid Clarity Clear Body Fluid Nucleated Cells 68/cmm Body Fluid Mononuclear WBCs (%) 98% Body Fluid Polymorphonuclear Cells 1% Body Fluid Total RBCs Counted 73/cmm Body Fluid Other Cells (%) 1% Vancomycin Level Trough 11.3mcg/mL (10.0-20.0) Vancomycin Last Dose Date Vancomycin Last Dose Time Test 09/18/16 16:42 09/18/16 21:17 09/19/16 07:46 09/19/16 11:47 Glucose (Fingerstick) 143mg/dL (70-99) 187mg/dL (70-99) 183mg/dL (70-99) 178mg/dL (70-99) Test 09/19/16 16:32 Glucose (Fingerstick) 130mg/dL (70-99) Laboratory Tests Test 09/18/16 21:17 09/19/16 07:46 09/19/16 11:47 09/19/16 16:32 Glucose (Fingerstick) 187mg/dL (70-99) 183mg/dL (70-99) 178mg/dL (70-99) 130mg/dL (70-99) Microbiology 09/07/16 Blood Culture - Final, Complete NO GROWTH AFTER 5 DAYS 09/17/16 Anaerobic/Aerobic Culture - Preliminary, Resulted 09/17/16 Anaerobic Culture Result 1 (RONEN) - Preliminary, Resulted 09/17/16 Aerobic Culture - Final, Resulted 09/17/16 Aerobic Culture Result 1 (RONEN) - Final, Resulted Medications Current Medications Meropenem/Sodium Chloride (Merrem/Iv Sodium Chloride 0.9% 100ml) 100 ml @ 200 mls/hr Q8HRS IV ; Start 09/07/16 at 22:00; Status UNV Vancomycin HCl 1 each 1 each PRN DAILY PRN MC SEE COMMENTS Last administered on 09/19/16 11:42; Start 09/07/16 at 20:45 Sodium Chloride (Iv Sodium Chloride 0.9% 500ml Bag) 500 ml @ 500 mls/hr 1X ONCE IV Last administered on 09/07/16 21:04; Start 09/07/16 at 21:00; Stop at 21:59; Status DC Hydromorphone HCl 1 mg 1 mg 1X ONCE IV Last administered on 09/07/16 20:59; Start 09/07/16 at 21:00; Stop 09/07/16 at 21:01; Status DC Meropenem 500 mg/ Sodium Chloride 50 ml @ 100 mls/hr QHS IV Last administered on 09/07/16 21:05; Start 09/07/16 at 21:00; Stop 09/08/16 at 07:59; Status DC Vancomycin HCl/ Sodium Chloride (Iv Sodium Chloride 0.9% 500ml Bag) 500 ml @ 250 mls/hr 1X ONCE IV Last administered on 09/07/16 22:07; Start 09/07/16 at 21:30; Stop 09/07/16 at 23:29; Status DC Ondansetron HCl (Zofran) 4 mg PRN Q8HRS PRN IV NAUSEA/VOMITING Last administered on 09/07/16 22:43; Start 09/07/16 at 22:00; Stop 09/08/16 at 21:59 ; Status DC Morphine Sulfate 4 mg 4 mg PRN Q2HR PRN IV SEVERE PAIN Last administered on 21:12; Start 09/07/16 at 22:00; Stop 09/08/16 at 21:59; Status DC Sodium Chloride (Iv Sodium Chloride 0.9% 1000ml Bag) 1,000 ml @ 75 mls/hr [id number] IV Last administered on 09/08/16 12:56; Start 09/07/16 at 21:52; Stop 09/08/16 at 21:51; Status DC Insulin Aspart (Novolog) 0-7 UNITS TIDWMEALS SQ ; Start 09/08/16 at 08:00; Stop 09/08/16 at 08:00; Status DC Dextrose (Dextrose 50%-Water Syringe) 12.5 gm PRN Q15MIN PRN IV SEE COMMENTS Last administered on 09/08/16 21:03; Start 09/07/16 at 22:30 Allopurinol (Zyloprim) 100 mg DAILY PO Last administered on 09/19/16 08:48; Start 09/08/16 at 09:00 Apixaban (Eliquis) 2.5 mg DAILY PO Last administered on 09/08/16 07:59; Start 09/08/16 at 09:00; Stop 09/08/16 at 10:43; Status DC Atorvastatin Calcium (Lipitor) 40 mg QHS PO Last administered on 09/18/16 21: 12; Start 09/08/16 at 21:00 Carvedilol (Coreg) 3.125 mg BIDWMEALS PO Last administered on 09/19/16 08:49; Start 09/08/16 at 08:00 Cinacalcet (Sensipar) 30 mg DAILY PO Last administered on 09/16/16 11:40; Start 09/08/16 at 09:00; Stop 09/17/16 at 10:47; Status DC Glimepiride (Amaryl) 4 mg DAILY PO Last administered on 09/08/16 07:59; Start 09/08/16 at 09:00; Stop 09/09/16 at 13:46; Status DC Acetaminophen/ Hydrocodone Bitart (Lortab 5/325) 1 tab PRN Q6HRS PRN PO SEVERE PAIN Last administered on 09/09/16 06:16; Start 09/07/16 at 22:30; Stop at 14:14; Status DC Polyethylene Glycol (miraLAX PACKET) 17 gm PRN DAILY PRN PO CONSTIPATION; Start 09/07/16 at 22:30 Sevelamer Carbonate (Renvela) 2.4 gm TIDWMEALS PO Last administered on 07:59; Start 09/08/16 at 08:00; Stop 09/08/16 at 12:01; Status DC Vitamin A/Vitamin D (Vitamin A & D Ointment) 1 katie TID TP Last administered on 09/16/16 20:37; Start 09/08/16 at 09:00; Stop 09/18/16 at 08:05; Status DC Docusate Sodium (Colace) 100 mg PRN DAILY PRN PO CONSTIPATION; Start 09/07/16 at 22:45 Docusate Sodium (Colace) 100 mg DAILY PO Last administered on 09/19/16 08:49; Start 09/08/16 at 09:00 Potassium Chloride (Klor-Con) 20 meq 1X ONCE PO Last administered on 01:38; Start 09/07/16 at 23:00; Stop 09/07/16 at 23:01; Status DC Insulin Aspart (Novolog) 0-7 UNITS QIDACHS SQ Last administered on 09/19/16 12 :16; Start 09/07/16 at 22:45 Info (Anti-Coagulation Monitoring By Pharmacy) 1 each PRN DAILY PRN MC SEE COMMENTS Last administered on 09/17/16 11:54; Start 09/07/16 at 23:45 Vancomycin HCl 1 each 1 each 1X ONCE MC ; Start 09/11/16 at 21:30; Stop at 21:30; Status DC Vancomycin HCl 1.5 gm/Sodium Chloride 500 ml @ 250 mls/hr Q48H IV ; Start 09/09 at 22:00; Stop 09/09/16 at 22:00; Status DC Piperacillin Sod/ Tazobactam Sod/ Sodium Chloride (Zosyn/Iv Sodium Chloride 0.9 % 50ml) 50 ml @ 100 mls/hr Q8HRS IV Last administered on 09/10/16 06:11; Start 09/08/16 at 08:30; Stop 09/10/16 at 09:00; Status DC Fluconazole (Diflucan) 100 mg DAILY PO Last administered on 09/19/16 08:51; Start 09/08/16 at 09:00 Darbepoetin Lasha (Aranesp) 60 mcg [id number] SQ Last administered on 09/15/16 21 :23; Start 09/08/16 at 21:00 Apixaban (Eliquis) 2.5 mg BID PO Last administered on 09/19/16 08:49; Start at 21:00 Vancomycin HCl 1 each 1X ONCE MC Last administered on 09/09/16 06:00; Start 09/09/16 at 06:00; Stop 09/09/16 at 06:01; Status DC Sevelamer Carbonate (Renvela) 2,400 mg TIDWMEALS PO Last administered on 08:43; Start 09/08/16 at 12:00 Insulin Aspart (Novolog) 8 units TIDAC SQ Last administered on 09/10/16 08:41 ; Start 09/08/16 at 12:00; Stop 09/10/16 at 10:17; Status DC Lorazepam (Ativan) 0.5 mg PRN Q6HRS PRN PO ANXIETY / AGITATION Last administered on 09/19/16 11:23; Start 09/08/16 at 13:00 Fentanyl Citrate (Fentanyl 2ml Vial) 25 mcg PRN Q5MIN PRN IV MILD PAIN; Start 09/09/16 at 07:00; Stop 09/10/16 at 06:59; Status DC Fentanyl Citrate (Fentanyl 2ml Vial) 50 mcg PRN Q5MIN PRN IV MODERATE PAIN; Start 09/09/16 at 07:00; Stop 09/10/16 at 06:59; Status DC Morphine Sulfate 1 mg PRN Q10MIN PRN IV SEVERE PAIN; Start 09/09/16 at 07:00; Stop 09/10/16 at 06:59; Status DC Lidocaine HCl 2 ml PRN 1X PRN ID PRIOR TO IV START; Start 09/09/16 at 07:00; Stop 09/10/16 at 06:59; Status DC Hydromorphone HCl (Dilaudid) 0.5 mg PRN Q10MIN PRN IV SEV PAIN, Second choice; Start 09/09/16 at 07:00; Stop 09/10/16 at 06:59; Status DC Prochlorperazine Edisylate 5 mg 5 mg PACU PRN PRN IV NAUSEA, MRX1; Start at 07:00; Stop 09/10/16 at 06:59; Status DC Sodium Chloride (Iv Sodium Chloride 0.9% 1000ml Bag) 1,000 ml @ 0 mls/hr Q0M IV ; Start 09/09/16 at 12:00; Stop 09/10/16 at 10:51; Status DC Morphine Sulfate 4 mg PRN Q2HR PRN IV SEVERE PAIN Last administered on 4/20/ 17at 10:43; Start 09/09/16 at 01:00; Stop 09/11/16 at 15:23; Status DC Lidocaine HCl 30 ml STK-MED ONCE .ROUTE ; Start 09/09/16 at 07:12; Stop at 07:13; Status Cancel Cellulose 1 each STK-MED ONCE .ROUTE ; Start 09/09/16 at 07:12; Stop 09/09/16 at 07:13; Status Cancel Papaverine HCl 60 mg 60 mg STK-MED ONCE .ROUTE ; Start 09/09/16 at 07:13; Stop 09/09/16 at 07:14; Status Cancel Sodium Chloride 1,000 ml @ 1,000 mls/hr Q1H PRN IV hypotension; Start 09/09/16 at 07:30; Stop 09/09/16 at 13:29; Status DC Albumin Human (Albuminar) 200 ml @ 200 mls/hr 1X PRN PRN IV Hypotension Last administered on 09/09/16 09:37; Start 09/09/16 at 07:30; Stop 09/09/16 at 13:29 ; Status DC Acetaminophen (Tylenol) 500 mg 1X PRN PRN PO MILD PAIN / TEMP; Start 09/09/16 at 07:30; Stop 09/10/16 at 07:29; Status DC Diphenhydramine HCl (Benadryl) 25 mg 1X PRN PRN IV ITCHING; Start 09/09/16 at 07:30; Stop 09/10/16 at 07:29; Status DC Diphenhydramine HCl (Benadryl) 25 mg 1X PRN PRN IV ITCHING; Start 09/09/16 at 07:30; Stop 09/10/16 at 07:29; Status DC Labetalol HCl (Normodyne) 10 mg PRN Q1HR PRN IVP SBP > 180; Start 09/09/16 at 07:30; Stop 09/10/16 at 07:29; Status DC Clonidine HCl 0.1 mg 0.1 mg 1X PRN PRN PO SBP > 180; Start 09/09/16 at 07:30; Stop 09/10/16 at 07:29; Status DC Sodium Chloride (Iv Sodium Chloride 0.9% 1000ml Bag) 1,000 ml @ 400 mls/hr Q2H30M PRN IV PATENCY; Start 09/09/16 at 07:30; Stop 09/09/16 at 19:29; Status DC Info 1 each 1 each PRN DAILY PRN MC SEE COMMENTS; Start 09/09/16 at 07:30; Stop 09/14/16 at 10:15; Status DC Heparin Sodium (Porcine) 5000 unit/Sodium Chloride 505 ml @ 505 mls/hr 1X PERIOP ONCE IRR ; Start 09/09/16 at 09:00; Stop 09/09/16 at 09:59; Status DC Cefazolin Sodium 1 gm/Sodium Chloride 500 ml @ 500 mls/hr 1X PERIOP ONCE IRR ; Start 09/09/16 at 09:00; Stop 09/09/16 at 09:59; Status DC Cefazolin Sodium (Ancef 1gm Ivpb For Omni) 0 ml @ As Directed STK-MED ONCE IV ; Start 09/09/16 at 13:23; Stop 09/09/16 at 13:24; Status DC Acetaminophen/ Hydrocodone Bitart (Lortab 5/325) 1 tab PRN Q4HRS PRN PO PAIN; Start 09/09/16 at 14:15; Stop 09/11/16 at 11:52; Status DC Acetaminophen/ Hydrocodone Bitart (Lortab 5/325) 2 tab PRN Q4HRS PRN PO PAIN Last administered on 09/11/16t 04:49; Start 09/09/16 at 14:15; Stop 09/11/16 at 11:52; Status DC Midazolam HCl (Versed) 2 mg STK-MED ONCE .ROUTE ; Start 09/09/16 at 14:06; Stop 09/09/16 at 14:07; Status DC Fentanyl Citrate 100 mcg 100 mcg STK-MED ONCE .ROUTE ; Start 09/09/16 at 14:06; Stop 09/09/16 at 14:07; Status DC Vancomycin HCl/ Sodium Chloride (Iv Sodium Chloride 0.9% 100ml) 100 ml @ 100 mls/hr QMWF IV Last administered on 09/09/16t 17:36; Start 09/09/16 at 16:00; Stop 09/11/16 at 15:32; Status DC Lidocaine HCl 20 ml STK-MED ONCE .ROUTE ; Start 09/09/16 at 14:11; Stop at 14:12; Status DC Lidocaine HCl 20 ml STK-MED ONCE .ROUTE ; Start 09/09/16 at 14:11; Stop at 14:12; Status Cancel Cellulose 1 each STK-MED ONCE .ROUTE ; Start 09/09/16 at 14:12; Stop 09/09/16 at 14:13; Status Cancel Papaverine HCl 60 mg 60 mg STK-MED ONCE .ROUTE ; Start 09/09/16 at 14:12; Stop 09/09/16 at 14:13; Status DC Propofol (Diprivan) 20 ml @ As Directed STK-MED ONCE IV ; Start 09/09/16 at 14: 51; Stop 09/09/16 at 14:52; Status DC Amoxicillin/ Clavulanate Potassium (Augmentin 500/ 125mg) 1 tab DAILY PO Last administered on 09/10/16 10:43; Start 09/10/16 at 10:00; Stop 09/11/16 at 10:47 ; Status DC Insulin Aspart (Novolog) 5 units TIDAC SQ Last administered on 09/19/16 12:17 ; Start 09/10/16 at 11:30 Insulin Detemir (Levemir) 10 units QHS SQ Last administered on 09/10/16 21:46 ; Start 09/10/16 at 21:00; Stop 09/11/16 at 10:42; Status DC Sodium Thiosulfate 25 gm 25 gm 3X/WEEK IV ; Start 09/11/16 at 09:00; Status UNV Magnesium Sulfate/ Dextrose 50 ml @ 25 mls/hr PRN DAILY PRN IV for Mag < 1.7 on am labs; Start 09/10/16 at 10:45 Sodium Thiosulfate 25 gm/ Sodium Chloride 100 ml @ 100 mls/hr 3X/WEEK@16 IV Last administered on 09/18/16 15:11; Start 09/11/16 at 16:00; Stop 09/18/16 at 18:00; Status DC Amino Acids/ Glycerin/ Electrolytes (Procalamine) 1,000 ml @ 80 mls/hr [id number] IV Last administered on 09/19/16 04:54; Start 09/10/16 at 11:30 Fentanyl Citrate (Fentanyl 2ml Vial) 25 mcg PRN Q2HR PRN IV PAIN Last administered on 09/13/16 17:02; Start 09/10/16 at 13:00; Stop 09/13/16 at 18:42 ; Status DC Albuterol Sulfate (Ventolin Neb Soln) 2.5 mg PRN Q4HRS PRN NEB SHORTNESS OF BREATH Last administered on 09/12/16 08:56; Start 09/10/16 at 13:30 Tramadol HCl (Ultram) 50 mg PRN Q6HRS PRN PO PAIN Last administered on 08:39; Start 09/10/16 at 13:45 Ondansetron HCl (Zofran) 4 mg PRN Q6HRS PRN IV NAUSEA/VOMITING Last administered on 09/11/16 08:39; Start 09/10/16 at 19:15 Calcium Carbonate/ Glycine (Tums) 500 mg TID PRN PO INDIGESTION; Start at 19:15; Stop 09/17/16 at 10:47; Status DC Pantoprazole Sodium (Protonix) 40 mg DAILYAC PO Last administered on 09/19/16 08:43; Start 09/10/16 at 20:00 Prochlorperazine Edisylate (Compazine) 10 mg PRN Q6HRS PRN IV NAUSEA/VOMITING Last administered on 09/11/16 10:49; Start 09/11/16 at 10:30 Insulin Detemir (Levemir) 15 units QHS SQ Last administered on 09/18/16 21:27 ; Start 09/11/16 at 21:00 Metoclopramide HCl 5 mg 5 mg PRN Q6HRS PRN IV NAUSEA/VOMITING Last administered on 09/11/16 20:55; Start 09/11/16 at 10:45 Piperacillin Sod/ Tazobactam Sod/ Sodium Chloride (Zosyn/Iv Sodium Chloride 0.9 % 50ml) 50 ml @ 100 mls/hr Q8HRS IV Last administered on 09/19/16 14:39; Start 09/11/16 at 14:00 Oxycodone/ Acetaminophen 1 tab 1 tab PRN Q4HRS PRN PO PAIN Last administered on 09/19/16 03:38; Start 09/11/16 at 12:00 Sodium Thiosulfate/ Sodium Chloride (Sodium Thiosulfate/Iv Sodium Chloride 0.9% 100ml) 100 ml @ 100 mls/hr 1X ONCE IV Last administered on 09/12/16 16:00; Start 09/12/16 at 16:00; Stop 09/12/16 at 16:59; Status DC Lorazepam (Ativan) 1 mg 1X ONCE IV ; Start 09/11/16 at 18:00; Stop 09/11/16 at 18:01; Status DC Haloperidol Lactate (Haldol) 2 mg PRN Q24HRS PRN IVP AGITATION Last administered on 09/14/16 11:04; Start 09/11/16 at 18:00; Stop 09/14/16 at 15:06 ; Status DC Lorazepam 1 mg 1 mg 1X ONCE IV Last administered on 09/12/16 03:14; Start at 01:00; Stop 09/12/16 at 01:01; Status DC Sodium Chloride (Iv Sodium Chloride 0.9% 1000ml Bag) 1,000 ml @ 1,000 mls/hr Q1H PRN IV hypotension; Start 09/12/16 at 08:00; Stop 09/12/16 at 13:59; Status DC Diphenhydramine HCl 50 mg 50 mg 1X PRN PRN IV ITCHING Last administered on 09/12 09:06; Start 09/12/16 at 08:45; Stop 09/12/16 at 16:00; Status DC Sodium Chloride (Iv Sodium Chloride 0.9% 1000ml Bag) 1,000 ml @ 400 mls/hr Q2H30M PRN IV PATENCY; Start 09/12/16 at 08:00; Stop 09/12/16 at 19:59; Status DC Info (PHARMACY MONITORING -- do not chart) 1 each PRN DAILY PRN MC SEE COMMENTS ; Start 09/12/16 at 08:45; Status UNV Lorazepam 0.5 mg 0.5 mg PRN Q6HRS PRN IV ANXIETY / AGITATION Last administered on 09/14/16 23:37; Start 09/12/16 at 11:00 Vancomycin HCl/ Sodium Chloride (Iv Sodium Chloride 0.9% 100ml) 100 ml @ 100 mls/hr 1X ONCE IV Last administered on 09/12/16 14:40; Start 09/12/16 at 13: 00; Stop 09/12/16 at 13:59; Status DC Fentanyl Citrate (Fentanyl 2ml Vial) 50 mcg PRN Q2HR PRN IV PAIN Last administered on 09/17/16 13:12; Start 09/13/16 at 18:45 Morphine Sulfate 1 mg PRN Q2HR PRN IV PAIN Last administered on 09/15/16 08:51 ; Start 09/13/16 at 18:45; Stop 09/15/16 at 10:39; Status DC Lidocaine (Lidoderm) 1 patch DAILY TD ; Start 09/13/16 at 19:00; Stop 09/13/16 at 19:16; Status DC Lidocaine HCl 1 katie 1 katie TID TP Last administered on 09/16/16 20:37; Start at 21:00; Stop 09/18/16 at 08:05; Status DC Sodium Chloride (Iv Sodium Chloride 0.9% 1000ml Bag) 1,000 ml @ 1,000 mls/hr Q1H PRN IV hypotension; Start 09/14/16 at 10:06; Stop 09/14/16 at 16:05; Status DC Sodium Chloride (Normal Saline Flush) 10 ml 1X PRN PRN IV AP catheter pack; Start 09/14/16 at 10:15; Stop 09/15/16 at 10:14; Status DC Sodium Chloride 10 ml 10 ml 1X PRN PRN IV BRIDGE EXPERT catheter pack; Start 09/14/16 at 10:15; Stop 09/15/16 at 10:14; Status DC Sodium Chloride (Iv Sodium Chloride 0.9% 1000ml Bag) 1,000 ml @ 400 mls/hr Q2H30M PRN IV PATENCY; Start 09/14/16 at 10:06; Stop 09/14/16 at 22:05; Status DC Info 1 each 1 each PRN DAILY PRN MC SEE COMMENTS; Start 09/14/16 at 10:15 Vancomycin HCl 500 mg/Sodium Chloride 100 ml @ 100 mls/hr 1X ONCE IV Last administered on 09/14/16 15:30; Start 09/14/16 at 13:00; Stop 09/14/16 at 13:59 ; Status DC Vancomycin HCl/ Sodium Chloride (Iv Sodium Chloride 0.9% 100ml) 100 ml @ 100 mls/hr QMWF IV Last administered on 09/18/16 17:52; Start 09/16/16 at 16:00 Haloperidol Lactate (Haldol) 2 mg PRN Q6HRS PRN IVP AGITATION Last administered on 09/19/16 10:04; Start 09/14/16 at 18:00 Fentanyl (Duragesic 50mcg/ Hr Patch) 1 patch Q3DAYS TD Last administered on 12:25; Start 09/15/16 at 11:00; Stop 09/15/16 at 16:57; Status DC Haloperidol Lactate 5 mg 5 mg PRN Q6HRS PRN IVP AGITATION Last administered on 09/17/16 03:40; Start 09/15/16 at 12:15 Sodium Chloride 1,000 ml @ 1,000 mls/hr Q1H PRN IV hypotension; Start 09/15/16 at 12:16; Stop 09/15/16 at 18:15; Status DC Albumin Human (Albuminar) 200 ml @ 200 mls/hr 1X PRN PRN IV Hypotension; Start 09/15/16 at 12:30; Stop 09/15/16 at 18:29; Status DC Acetaminophen (Tylenol) 500 mg 1X PRN PRN PO MILD PAIN / TEMP; Start 09/15/16 at 12:30; Stop 09/16/16 at 12:29; Status DC Diphenhydramine HCl (Benadryl) 25 mg 1X PRN PRN IV ITCHING; Start 09/15/16 at 12:30; Stop 09/16/16 at 12:29; Status DC Diphenhydramine HCl (Benadryl) 25 mg 1X PRN PRN IV ITCHING; Start 09/15/16 at 12:30; Stop 09/16/16 at 12:29; Status DC Labetalol HCl (Normodyne) 10 mg PRN Q1HR PRN IVP SBP > 180; Start 09/15/16 at 12:30; Stop 09/16/16 at 12:29; Status DC Clonidine HCl 0.1 mg 0.1 mg 1X PRN PRN PO SBP > 180; Start 09/15/16 at 12:30; Stop 09/16/16 at 12:29; Status DC Sodium Chloride (Iv Sodium Chloride 0.9% 1000ml Bag) 1,000 ml @ 400 mls/hr Q2H30M PRN IV PATENCY; Start 09/15/16 at 12:16; Stop 09/16/16 at 00:15; Status DC Info (PHARMACY MONITORING -- do not chart) 1 each PRN DAILY PRN MC SEE COMMENTS ; Start 09/15/16 at 12:30; Status UNV Fentanyl 1 patch 1 patch Q3DAYS TD Last administered on 09/18/16t 12:12; Start 09/15/16 at 17:00 Sodium Chloride 1,000 ml @ 1,000 mls/hr Q1H PRN IV hypotension; Start 09/16/16 at 08:34; Stop 09/16/16 at 14:33; Status DC Albumin Human (Albuminar) 200 ml @ 200 mls/hr 1X PRN PRN IV Hypotension; Start 09/16/16 at 08:45; Stop 09/16/16 at 14:44; Status DC Acetaminophen (Tylenol) 500 mg 1X PRN PRN PO MILD PAIN / TEMP; Start 09/16/16 at 08:45; Stop 09/17/16 at 08:44; Status DC Diphenhydramine HCl (Benadryl) 25 mg 1X PRN PRN IV ITCHING; Start 09/16/16 at 08:45; Stop 09/17/16 at 08:44; Status DC Diphenhydramine HCl (Benadryl) 25 mg 1X PRN PRN IV ITCHING; Start 09/16/16 at 08:45; Stop 09/17/16 at 08:44; Status DC Labetalol HCl (Normodyne) 10 mg PRN Q1HR PRN IVP SBP > 180; Start 09/16/16 at 08:45; Stop 09/17/16 at 08:44; Status DC Clonidine HCl 0.1 mg 0.1 mg 1X PRN PRN PO SBP > 180; Start 09/16/16 at 08:45; Stop 09/17/16 at 08:44; Status DC Sodium Chloride (Iv Sodium Chloride 0.9% 1000ml Bag) 1,000 ml @ 400 mls/hr Q2H30M PRN IV PATENCY; Start 09/16/16 at 08:34; Stop 09/16/16 at 20:33; Status DC Info (PHARMACY MONITORING -- do not chart) 1 each PRN DAILY PRN MC SEE COMMENTS ; Start 09/16/16 at 08:45; Status UNV Nystatin 5 ml [id number] Last administered on 09/19/16 14:43; Start at 13:00 Fentanyl Citrate (Fentanyl 2ml Vial) 25 mcg PRN Q5MIN PRN IV MILD PAIN; Start 09/17/16 at 07:00; Stop 09/18/16 at 06:59; Status DC Fentanyl Citrate (Fentanyl 2ml Vial) 50 mcg PRN Q5MIN PRN IV MODERATE PAIN Last administered on 09/17/16 16:26; Start 09/17/16 at 07:00; Stop 09/18/16 at 06:59; Status DC Morphine Sulfate 1 mg PRN Q10MIN PRN IV SEVERE PAIN; Start 09/17/16 at 07:00; Stop 09/18/16 at 06:59; Status DC Lidocaine HCl 2 ml PRN 1X PRN ID PRIOR TO IV START; Start 09/17/16 at 07:00; Stop 09/18/16 at 06:59; Status DC Hydromorphone HCl (Dilaudid) 0.5 mg PRN Q10MIN PRN IV SEV PAIN, Second choice; Start 09/17/16 at 07:00; Stop 09/18/16 at 06:59; Status DC Prochlorperazine Edisylate 5 mg 5 mg PACU PRN PRN IV NAUSEA, MRX1 Last administered on 09/17/16 15:42; Start 09/17/16 at 07:00; Stop 09/18/16 at 06:59 ; Status DC Sodium Chloride 1,000 ml @ 0 mls/hr Q0M IV ; Start 09/17/16 at 12:00 Sodium Phosphate/ Dextrose 256.6667 ml @ 64.167 m... 1X ONCE IV Last administered on 09/17/16 14:12; Start 09/17/16 at 11:00; Stop 09/17/16 at 14:59 ; Status DC Cyproheptadine HCl 4 mg 4 mg PRN TID PRN PO ALLERGIES; Start 09/17/16 at 10:45 Peritoneal Dialysis Solution (Dianeal With 1.5% Dextrose) 2,000 ml @ 671.667 mls/hr 1X ONCE IP Last administered on 09/17/16 18:46; Start 09/17/16 at 10: 45; Stop 09/17/16 at 13:43; Status DC Fentanyl Citrate 100 mcg 100 mcg STK-MED ONCE .ROUTE ; Start 09/17/16 at 13:48; Stop 09/17/16 at 13:49; Status DC Propofol (Diprivan) 20 ml @ As Directed STK-MED ONCE IV ; Start 09/17/16 at 13: 48; Stop 09/17/16 at 13:49; Status DC Dexamethasone Sodium Phosphate (Decadron) 20 mg STK-MED ONCE .ROUTE ; Start at 13:50; Stop 09/17/16 at 13:51; Status DC Ondansetron HCl (Zofran) 4 mg STK-MED ONCE .ROUTE ; Start 09/17/16 at 13:50; Stop 09/17/16 at 13:51; Status DC Povidone Iodine ( Betadine Oint) 28 katie STK-MED ONCE TP Last administered on 14:20; Start 09/17/16 at 14:50; Stop 09/17/16 at 14:51; Status DC Sevoflurane (Ultane) 60 ml STK-MED ONCE IH ; Start 09/17/16 at 15:16; Stop 09/17 at 15:17; Status DC Lidocaine HCl (Lidocaine HCl 2% Abboject) 100 mg STK-MED ONCE .ROUTE ; Start at 15:17; Stop 09/17/16 at 15:18; Status DC Insulin Aspart (Novolog Vial) 6 unit 1X ONCE SQ Last administered on 16:33; Start 09/17/16 at 16:30; Stop 09/17/16 at 16:31; Status DC Insulin Aspart (Novolog Vial) 100 unit STK-MED ONCE SQ ; Start 09/17/16 at 16:29 ; Stop 09/17/16 at 16:30; Status DC Morphine Sulfate (Morphine Ir) 15 mg PRN Q4HRS PRN PO SEVERE PAIN Last administered on 09/18/16 21:15; Start 09/17/16 at 22:00 Lorazepam 1 mg 1 mg 1X ONCE PO Last administered on 09/17/16 22:01; Start at 22:30; Stop 09/17/16 at 22:31; Status DC Sodium Chloride (Iv Sodium Chloride 0.9% 1000ml Bag) 1,000 ml @ 1,000 mls/hr Q1H PRN IV hypotension; Start 09/18/16 at 08:10; Stop 09/18/16 at 14:09; Status DC Sodium Chloride (Normal Saline Flush) 10 ml 1X PRN PRN IV AP catheter pack; Start 09/18/16 at 08:15; Stop 09/19/16 at 08:14; Status DC Sodium Chloride (Normal Saline Flush) 10 ml 1X PRN PRN IV BRIDGE EXPERT catheter pack; Start 09/18/16 at 08:15; Stop 09/19/16 at 08:14; Status DC Info (PHARMACY MONITORING -- do not chart) 1 each PRN DAILY PRN MC SEE COMMENTS ; Start 09/18/16 at 08:15; Status UNV Info (PHARMACY MONITORING -- do not chart) 1 each PRN DAILY PRN MC SEE COMMENTS ; Start 09/18/16 at 08:15; Status UNV Vancomycin HCl 1 each 1X ONCE MC Last administered on 09/18/16 16:00; Start 09/18/16 at 16:00; Stop 09/18/16 at 16:01; Status DC Lidocaine/Sodium Bicarbonate 20 ml 20 ml STK-MED ONCE IJ ; Start 09/18/16 at 13: 09; Stop 09/18/16 at 13:10; Status DC Heparin Sodium/ Sodium Chloride 500 ml @ As Directed STK-MED ONCE .ROUTE ; Start 09/18/16 at 13:09; Stop 09/18/16 at 13:10; Status DC Heparin Sodium/ Sodium Chloride 1,000 unit 1X ONCE IART Last administered on 13:39; Start 09/18/16 at 13:30; Stop 09/18/16 at 13:31; Status DC Lidocaine/Sodium Bicarbonate 20 ml 20 ml 1X ONCE IJ Last administered on 13:39; Start 09/18/16 at 13:30; Stop 09/18/16 at 13:31; Status DC Sodium Thiosulfate/ Miscellaneous (Sodium Thiosulfate) 100 ml @ 100 mls/hr 3X/ WEEK@16 IV ; Start 09/21/16 at 16:00 Collagenase (Santyl) 1 katie DAILY TP ; Start 09/19/16 at 09:00; Status UNV Collagenase (Santyl) 1 katie 1X ONCE TP ; Start 09/18/16 at 16:00; Stop 09/18/16 at 16:01; Status DC Active Scripts Active Mupirocin Ointment (Mupirocin) 22 Gm Oint...g. 1 Katie TP TID Vitamin A & D Ointment (Vits A & D/White Pet/Lanolin) 56.7 Gm Oint...g. 1 Katie TP TID Diflucan (Fluconazole) 100 Mg Tablet 100 Mg PO DAILY Allopurinol 100 Mg Tablet 100 Mg PO DAILY Hydrocodone-Apap 5-325 (Hydrocodone Bit/Acetaminophen) 1 Each Tablet 1 Tab PO Q6HRS PRN Eliquis (Apixaban) 2.5 Mg Tablet 2.5 Mg PO DAILY Renvela (Sevelamer Carbonate) 2.4 Gm Powd.pack 2.4 Gm PO TIDWMEALS Miralax (Polyethylene Glycol 3350) 17 Gm Powd.pack 17 Gm PO PRN DAILY PRN Carvedilol 3.125 Mg Tablet 3.125 Mg PO BIDWMEALS Reported Sensipar (Cinacalcet Hcl) 30 Mg Tablet 1 Tab PO DAILY Glimepiride 2 Mg Tablet 4 Mg PO DAILY Novolog (Insulin Aspart) 100 Unit/1 Ml Cartridge 8 Unit SQ TIDAC Atorvastatin Calcium 40 Mg Tablet 1 Tab PO DAILY Vitals/I & O Vital Sign - Last 24 Hours 09/18/16 09/18/16 09/18/16 09/18/16 17:53 19:07 20:00 21:15 Pulse 71 103 Resp 18 16 B/P 132/57 135/67 Pulse Ox 95 O2 Delivery Nasal Cannula Room Air Room Air O2 Flow Rate 2.0 09/18/16 09/18/16 09/19/16 09/19/16 22:15 23:10 03:10 03:38 Temp 99.1 100.6 99.1 100.6 Pulse 97 97 Resp 18 18 16 18 B/P 87/38 137/63 Pulse Ox 96 98 O2 Delivery Room Air Nasal Cannula Room Air Room Air O2 Flow Rate 2.0 09/19/16 09/19/16 09/19/16 09/19/16 04:40 05:01 07:00 08:00 Temp 97.7 98.0 97.7 98.0 Pulse 108 Resp 18 20 B/P 141/81 Pulse Ox 95 O2 Delivery Room Air Room Air Room Air 09/19/16 09/19/16 08:49 11:00 Temp 98.1 98.1 Pulse 108 98 Resp 18 B/P 141/81 135/75 Pulse Ox 95 O2 Delivery Room Air Intake and Output 09/18/16 09/18/16 09/19/16 15:00 23:00 07:00 Intake Total 1470 ml Output Total 400 ml Balance -400 ml 1470 ml CARLOTA BAZAN III DO Sep 19, 2016 16:46
--- NOTE | 2016-09-19 17:52 | PDOC ---
Provider Note Provider Note RENAL F/U : STEVE S : Doing better. No new issues reported. O : VSS Afebrile. Neck : Supple Lungs : Non labored. Few rhonchi. CVS : RRR Abd : Benign appearing. No major distention. Ext: No edema. Neuro : Intact Labs and meds reviewed. A/P : ESRD HTN w CKD CELLULITIS CPM. Supportive care. Jackie Wilson M.D. JACKIE WILSON MD Sep 19, 2016 17:51
[2016-09-19 19:43] VITALS: BP 137/77
[2016-09-19] MEDS: ATORVASTATIN CALCIUM 40 MG TABLET. PO SCH (21:17)
[2016-09-19] MEDS: INSULIN DETEMIR 300 UNITS/3 ML INSULN.PEN. SQ SCH (21:27)
[2016-09-19 23:27] VITALS: BP 139/69
[2016-09-20] MEDS: oxyCODONE/APAP 5/325 1 TAB TABLET PO PRN ×2 (00:38→20:29)
[2016-09-20] MEDS: HALOPERIDOL LACTATE 5 MG/ML VIAL. IVP PRN (01:15)
[2016-09-20 03:04] VITALS: BP 139/77
[2016-09-20] MEDS: PIPERACILLIN/TAZOBACTAM 2.25 GM in IV NORMAL SALINE 50ML 50 ML IV SCH (05:49)
[2016-09-20 06:56] LABS: BASO # 0.1 x10^3/uL (0.0-0.2); BASO % 1 % (0-3); EOS % 3 % (0-3); HEMOGLOBIN 8.2 g/dL (13.0-17.5); LYMPH # 0.9 x10^3/uL (1.0-4.8); LYMPH % 10 % (24-48); MEAN CORPUSCULAR HEMOGLOBIN 32 pg (25-35); MEAN CORPUSCULAR HGB CONC 33 g/dL (31-37); MEAN CORPUSCULAR VOLUME 97 fL (79-100); MONO % 8 % (0-9); NEUT % 79 % (31-73); PLATELET COUNT 227 x10^3/uL (140-400); RED BLOOD COUNT 2.58 x10^6/uL (4.30-5.70); RED CELL DISTRIBUTION WIDTH 17.3 % (11.5-14.5); WHITE BLOOD COUNT 8.8 x10^3/uL (4.0-11.0)
[2016-09-20 07:00] VITALS: BP 133/62
[2016-09-20 07:01] LABS: CALCIUM 8.7 mg/dL (8.5-10.1); GFR 14.3; POTASSIUM 4.3 mmol/L (3.5-5.1)
[2016-09-20] MEDS: INSULIN ASPART 300 UNITS/3 ML INSULN.PEN SQ SCH ×7 (07:30→20:49)
[2016-09-20] MEDS: SEVELAMER CARBONATE 800 MG TABLET. PO SCH ×3 (08:00→17:00)
[2016-09-20] MEDS: CARVEDILOL 3.125 MG TABLET. PO SCH ×2 (08:30→17:07)
[2016-09-20] MEDS: PANTOPRAZOLE 40 MG TABLET.DR. PO SCH (08:30)
[2016-09-20] MEDS: ALLOPURINOL 100 MG TABLET. PO SCH (08:30)
[2016-09-20] MEDS: FLUCONAZOLE 100 MG TABLET. PO SCH (08:30)
[2016-09-20] MEDS: APIXABAN 2.5 MG TABLET. PO SCH ×2 (08:30→20:29)
[2016-09-20] MEDS: NYSTATIN 100,000 UNITS/ML 5 ML ORAL.SUSP. SWSW SCH ×4 (08:30→20:29)
[2016-09-20] MEDS: DOCUSATE SODIUM 100 MG CAPSULE. PO SCH (08:37)
[2016-09-20] MEDS: COLLAGENASE 250 UNIT/GM TOPICAL OINTMENT 30GM TUBE. TP SCH (08:54)
--- NOTE | 2016-09-20 09:13 | PDOC ---
SUBJECTIVE ROS esrd NOT EATING MUCH AND FAMILY IS WORRIED ABOUT HIS BREATHING; remains anorexic CVS: no Orthopnea, no CP RESP: subj SOB, no LOCO GI: no Nausea, no Vomiting : no Dysuria, no Urgency OBJECTIVE Vital Signs Vital Signs Date Time Temp Pulse Resp B/P Pulse Ox O2 Delivery O2 Flow Rate FiO2 09/20/16 08:30 88 133/62 09/20/16 07:00 96.1 16 100 Room Air 96.1 I & 0 Intake and Output 09/20/16 07:00 Intake Total 160 ml Output Total 150 ml Balance 10 ml Intake Oral 160 ml Output Urine Total 150 ml PHYSICAL EXAM Physical Exam GEN: Awake, Oriented x 2-3 , In no distress EYES: Vision Unchanged, Conjunctiva Normal EN: No EN Drainage, Mucous Membranes dry NECK: no JVD, no JVP, Supple, no Thyromegaly CVS: S1S2, sys Murmur, No Gallop, No Rub,no Edema RESP: no Rales, no Rhonchi,no Acc. Muscle Use GI: BS + ve, NO Bruit, Non Tender, Non Distended : no CVA tenderness, no Suprapubic Tenderness DIAGNOSIS/ASSESSMENT Assessment & Plan ESRD: Current fluid and E-lyte status does not necessitate emergent need for dialysis. But may need it if SOB worsens or he dose not respond to IV LAsix. Will re-evaluate for dialysis in the am and continue on MWF schedule. 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 See orders for changes. Nutrition - PPN for now, Added Nepro - ? NEEd for TPN if Remains anorexic despite (now) Scheduled Periactin recc Lowish Phos (suspect due to POOR PO itnake) - reval in am; Hold Sensipar for now PD fluid with ^ed WBCs -- better on receck Scrotal cellulitis - better post surgery Discussed Plan of Care with family at bedside extensively COMMENT/RELEVANT DATA Meds Current Medications Medications (Trade) Dose Ordered Sig/Dirk Start Time Stop Time Status Last Admin Dose Admin Acetaminophen (Tylenol) 500 mg 1X PRN PRN 09/16/16 08:45 09/17/16 08:44 DC Acetaminophen/ Hydrocodone Bitart (Lortab 5/325) 2 tab PRN Q4HRS PRN 09/09/16 14:15 09/11/16 11:52 DC 09/11/16 04:49 2 TAB Albumin Human (Albuminar) 200 ml @ 200 mls/hr 1X PRN PRN 09/16/16 08:45 09/16/16 14:44 DC Albuterol Sulfate (Ventolin Neb Soln) 2.5 mg PRN Q4HRS PRN 09/10/16 13:30 09/12/16 08:56 2.5 MG Allopurinol (Zyloprim) 100 mg DAILY 09/08/16 09:00 09/20/16 08:30 100 MG Amino Acids/ Glycerin/ Electrolytes (Procalamine) 1,000 ml @ 80 mls/hr [id number] 09/10/16 11:30 09/19/16 17:05 80 MLS/HR Amoxicillin/ Clavulanate Potassium (Augmentin 500/ 125mg) 1 tab DAILY 09/10/16 10:00 09/11/16 10:47 DC 09/10/16 10:43 1 TAB Apixaban (Eliquis) 2.5 mg BID 09/08/16 21:00 09/20/16 08:30 2.5 MG Atorvastatin Calcium (Lipitor) 40 mg QHS 09/08/16 21:00 09/19/16 21:17 40 MG Calcium Carbonate/ Glycine (Tums) 500 mg TID PRN 09/10/16 19:15 09/17/16 10:47 DC Carvedilol (Coreg) 3.125 mg BIDWMEALS 09/08/16 08:00 09/20/16 08:30 3.125 MG Cefazolin Sodium (Ancef 1gm Ivpb For Omni) 0 ml @ As Directed STK-MED ONCE 09/09/16 13:23 09/09/16 13:24 DC Cefazolin Sodium 1 gm/Sodium Chloride 500 ml @ 500 mls/hr 1X PERIOP ONCE 09/09/16 09:00 09/09/16 09:59 DC Cellulose 1 each STK-MED ONCE 09/09/16 14:12 09/09/16 14:13 Cancel Cinacalcet (Sensipar) 30 mg DAILY 09/08/16 09:00 09/17/16 10:47 DC 09/16/16 11:40 30 MG Clonidine HCl (Catapres) 0.1 mg 1X PRN PRN 09/16/16 08:45 09/17/16 08:44 DC Clonidine HCl 0.1 mg 0.1 mg 1X PRN PRN 09/09/16 07:30 09/10/16 07:29 DC Collagenase (Santyl) 1 marie 1X ONCE 09/18/16 16:00 09/18/16 16:01 DC Cyproheptadine HCl 4 mg 4 mg PRN TID PRN 09/17/16 10:45 Darbepoetin Lasha (Aranesp) 60 mcg WEEKLYHS 09/08/16 21:00 09/15/16 21:23 60 MCG Dexamethasone Sodium Phosphate (Decadron) 20 mg STK-MED ONCE 09/17/16 13:50 09/17/16 13:51 DC Dextrose (Dextrose 50%-Water Syringe) 12.5 gm PRN Q15MIN PRN 09/07/16 22:30 09/08/16 21:03 25 GM Diphenhydramine HCl (Benadryl) 25 mg 1X PRN PRN 09/16/16 08:45 09/17/16 08:44 DC Docusate Sodium (Colace) 100 mg DAILY 09/08/16 09:00 09/19/16 08:49 100 MG Fentanyl (Duragesic 50mcg/ Hr Patch) 1 patch Q3DAYS 09/15/16 11:00 09/15/16 16:57 DC 09/15/16 12:25 1 PATCH Fentanyl 1 patch 1 patch Q3DAYS 09/15/16 17:00 09/18/16 12:12 1 PATCH Fentanyl Citrate (Fentanyl 2ml Vial) 50 mcg PRN Q5MIN PRN 09/17/16 07:00 09/18/16 06:59 DC 09/17/16 16:26 50 MCG Fentanyl Citrate 100 mcg 100 mcg STK-MED ONCE 09/17/16 13:48 09/17/16 13:49 DC Fluconazole (Diflucan) 100 mg DAILY 09/08/16 09:00 09/20/16 08:30 100 MG Glimepiride (Amaryl) 4 mg DAILY 09/08/16 09:00 09/09/16 13:46 DC 09/08/16 07:59 4 MG Haloperidol Lactate (Haldol) 5 mg PRN Q6HRS PRN 09/15/16 12:15 09/20/16 01:15 5 MG Heparin Sodium (Porcine) 5000 unit/Sodium Chloride 505 ml @ 505 mls/hr 1X PERIOP ONCE 09/09/16 09:00 09/09/16 09:59 DC Heparin Sodium/ Sodium Chloride 1,000 unit 1X ONCE 09/18/16 13:30 09/18/16 13:31 DC 09/18/16 13:39 1,000 UNIT Hydromorphone HCl (Dilaudid) 0.5 mg PRN Q10MIN PRN 09/17/16 07:00 09/18/16 06:59 DC Hydromorphone HCl 1 mg 1 mg 1X ONCE 09/07/16 21:00 09/07/16 21:01 DC 09/07/16 20:59 1 MG Info (Anti-Coagulation Monitoring By Pharmacy) 1 each PRN DAILY PRN 09/07/16 23:45 09/17/16 11:54 1 EACH Info (PHARMACY MONITORING -- do not chart) 1 each PRN DAILY PRN 09/18/16 08:15 UNV Info 1 each 1 each PRN DAILY PRN 09/14/16 10:15 Insulin Aspart (Novolog Vial) 100 unit STK-MED ONCE 09/17/16 16:29 09/17/16 16:30 DC Insulin Aspart (Novolog) 5 units TIDAC 09/10/16 11:30 09/19/16 12:17 5 UNITS Insulin Detemir (Levemir) 15 units QHS 09/11/16 21:00 09/19/16 21:27 15 UNITS Labetalol HCl (Normodyne) 10 mg PRN Q1HR PRN 09/16/16 08:45 09/17/16 08:44 DC Lidocaine (Lidoderm) 1 patch DAILY 09/13/16 19:00 09/13/16 19:16 DC Lidocaine HCl (Lidocaine HCl 2% Abboject) 100 mg STK-MED ONCE 09/17/16 15:17 09/17/16 15:18 DC Lidocaine HCl (Xylocaine 2% Topical 30gm Tube) 1 marie TID 09/13/16 21:00 09/18/16 08:05 DC 09/16/16 20:37 1 MARIE Lidocaine/Sodium Bicarbonate (Buffered Lidocaine 1%) 20 ml STK-MED ONCE 09/18/16 13:09 09/18/16 13:10 DC Lidocaine/Sodium Bicarbonate 20 ml 20 ml 1X ONCE 09/18/16 13:30 09/18/16 13:31 DC 09/18/16 13:39 3 ML Lorazepam (Ativan) 0.5 mg PRN Q6HRS PRN 09/12/16 11:00 09/14/16 23:37 0.5 MG Lorazepam 1 mg 1 mg 1X ONCE 09/17/16 22:30 09/17/16 22:31 DC 09/17/16 22:01 1 MG Magnesium Sulfate/ Dextrose 50 ml @ 25 mls/hr PRN DAILY PRN 09/10/16 10:45 Meropenem 1 gm/ Sodium Chloride 100 ml @ 200 mls/hr Q8HRS 09/07/16 22:00 UNV Meropenem/Sodium Chloride (Merrem/Iv Sodium Chloride 0.9% 50ml) 50 ml @ 100 mls/hr QHS 09/07/16 21:00 09/08/16 07:59 DC 09/07/16 21:05 100 MLS/HR Metoclopramide HCl 5 mg 5 mg PRN Q6HRS PRN 09/11/16 10:45 09/11/16 20:55 5 MG Midazolam HCl (Versed) 2 mg STK-MED ONCE 09/09/16 14:06 09/09/16 14:07 DC Morphine Sulfate (Morphine Ir) 15 mg PRN Q4HRS PRN 09/17/16 22:00 09/18/16 21:15 15 MG Nystatin 5 ml [id number] 09/16/16 13:00 09/20/16 08:30 5 ML Ondansetron HCl (Zofran) 4 mg STK-MED ONCE 09/17/16 13:50 09/17/16 13:51 DC Oxycodone/ Acetaminophen 1 tab 1 tab PRN Q4HRS PRN 09/11/16 12:00 09/19/16 19:49 1 TAB Pantoprazole Sodium (Protonix) 40 mg DAILYAC 09/10/16 20:00 09/20/16 08:30 40 MG Papaverine HCl 60 mg STK-MED ONCE 09/09/16 14:12 09/09/16 14:13 DC Peritoneal Dialysis Solution (Dianeal With 1.5% Dextrose) 2,000 ml @ 671.667 mls/hr 1X ONCE 09/17/16 10:45 09/17/16 13:43 DC 09/17/16 18:46 671.667 MLS/HR Piperacillin Sod/ Tazobactam Sod/ Sodium Chloride (Zosyn/Iv Sodium Chloride 0.9% 50ml) 50 ml @ 100 mls/hr Q8HRS 09/11/16 14:00 09/20/16 05:49 100 MLS/HR Polyethylene Glycol (miraLAX PACKET) 17 gm PRN DAILY PRN 09/07/16 22:30 Potassium Chloride (Klor-Con) 20 meq 1X ONCE 09/07/16 23:00 09/07/16 23:01 DC 09/08/16 01:38 20 MEQ Povidone Iodine ( Betadine Oint) 28 marie STK-MED ONCE 09/17/16 14:50 09/17/16 14:51 DC 09/17/16 14:20 28 MARIE Prochlorperazine Edisylate (Compazine) 10 mg PRN Q6HRS PRN 09/11/16 10:30 09/11/16 10:49 10 MG Prochlorperazine Edisylate 5 mg 5 mg PACU PRN PRN 09/17/16 07:00 09/18/16 06:59 DC 09/17/16 15:42 5 MG Propofol (Diprivan) 20 ml @ As Directed STK-MED ONCE 09/17/16 13:48 09/17/16 13:49 DC Sevelamer Carbonate (Renvela) 2,400 mg TIDWMEALS 09/08/16 12:00 09/19/16 08:43 2,400 MG Sevoflurane (Ultane) 60 ml STK-MED ONCE 09/17/16 15:16 09/17/16 15:17 DC Sodium Thiosulfate 25 gm 25 gm 3X/WEEK 09/11/16 09:00 UNV Sodium Thiosulfate 25 gm/ Sodium Chloride 100 ml @ 100 mls/hr 3X/WEEK@16 09/11/16 16:00 09/18/16 18:00 DC 09/18/16 15:11 100 MLS/HR Sodium Thiosulfate/ Miscellaneous (Sodium Thiosulfate) 100 ml @ 100 mls/hr 3X/WEEK@16 09/21/16 16:00 Sodium Thiosulfate/ Sodium Chloride (Sodium Thiosulfate/Iv Sodium Chloride 0.9% 100ml) 100 ml @ 100 mls/hr 1X ONCE 09/12/16 16:00 09/12/16 16:59 DC 09/12/16 16:00 100 MLS/HR Sodium Chloride (Iv Sodium Chloride 0.9% 500ml Bag) 500 ml @ 500 mls/hr 1X ONCE 09/07/16 21:00 09/07/16 21:59 DC 09/07/16 21:04 500 MLS/HR Sodium Chloride (Iv Sodium Chloride 0.9% 1000ml Bag) 1,000 ml @ 1,000 mls/hr Q1H PRN 09/18/16 08:10 09/18/16 14:09 DC Sodium Chloride (Normal Saline Flush) 10 ml 1X PRN PRN 09/18/16 08:15 09/19/16 08:14 DC Sodium Phosphate/ Dextrose 256.6667 ml @ 64.167 m... 1X ONCE 09/17/16 11:00 09/17/16 14:59 DC 09/17/16 14:12 64.167 MLS/HR Tramadol HCl (Ultram) 50 mg PRN Q6HRS PRN 09/10/16 13:45 09/11/16 08:39 50 MG Vancomycin HCl 1 each 1X ONCE 09/18/16 16:00 09/18/16 16:01 DC 09/18/16 16:00 1 EACH Vancomycin HCl 500 mg/Sodium Chloride 100 ml @ 100 mls/hr 1X ONCE 09/14/16 13:00 09/14/16 13:59 DC 09/14/16 15:30 100 MLS/HR Vancomycin HCl 1 each 1 each 1X ONCE 09/11/16 21:30 09/11/16 21:30 DC Vancomycin HCl/ Sodium Chloride (Iv Sodium Chloride 0.9% 100ml) 100 ml @ 100 mls/hr QMWF 09/16/16 16:00 09/18/16 17:52 100 MLS/HR Vancomycin HCl/ Sodium Chloride (Iv Sodium Chloride 0.9% 500ml Bag) 500 ml @ 250 mls/hr Q48H 09/09/16 22:00 09/09/16 22:00 DC Vitamin A/Vitamin D (Vitamin A & D Ointment) 1 marie TID 09/08/16 09:00 09/18/16 08:05 DC 09/16/16 20:37 1 MARIE Lab Laboratory Tests Test 09/19/16 11:47 09/19/16 16:32 09/19/16 20:41 09/20/16 06:35 Glucose (Fingerstick) 178mg/dL (70-99) 130mg/dL (70-99) 132mg/dL (70-99) White Blood Count 8.8x10^3/uL (4.0-11.0) Red Blood Count 2.58x10^6/uL (4.30-5.70) Hemoglobin 8.2g/dL (13.0-17.5) Hematocrit 25.0% (39.0-53.0) Mean Corpuscular Volume 97fL (79-100) Mean Corpuscular Hemoglobin 32pg (25-35) Mean Corpuscular Hemoglobin Concent 33g/dL (31-37) Red Cell Distribution Width 17.3% (11.5-14.5) Platelet Count 227x10^3/uL (140-400) Neutrophils (%) (Auto) 79% (31-73) Lymphocytes (%) (Auto) 10% (24-48) Monocytes (%) (Auto) 8% (0-9) Eosinophils (%) (Auto) 3% (0-3) Basophils (%) (Auto) 1% (0-3) Neutrophils # (Auto) 6.9x10^3uL (1.8-7.7) Lymphocytes # (Auto) 0.9x10^3/uL (1.0-4.8) Monocytes # (Auto) 0.7x10^3/uL (0.0-1.1) Eosinophils # (Auto) 0.2x10^3/uL (0.0-0.7) Basophils # (Auto) 0.1x10^3/uL (0.0-0.2) Sodium Level 138mmol/L (136-145) Potassium Level 4.3mmol/L (3.5-5.1) Chloride Level 95mmol/L (98-107) Carbon Dioxide Level 23mmol/L (21-32) Anion Gap 20 (6-14) Blood Urea Nitrogen 46mg/dL (8-26) Creatinine 4.0mg/dL (0.7-1.3) Estimated GFR (Cockcroft-Gault) 14.3 Glucose Level 153mg/dL (70-99) Calcium Level 8.7mg/dL (8.5-10.1) Test 09/20/16 07:22 Glucose (Fingerstick) 143mg/dL (70-99) FILIPPO RODRIGUES MD Sep 20, 2016 09:13
[2016-09-20] MEDS ORDERED: FUROSEMIDE 40 MG/4 ML VIAL. IVP ONE (09:15)
--- NOTE | 2016-09-20 09:42 | RAD ---
Portable AP upright view CXR: Clinical indications: Shortness of breath. Comparison: September 10, 2016.. Findings: A right upper extremity PICC line has been placed in the interim. The tip of this line is located within the lower SVC above the level of the right atrium. Right IJ central line is unchanged in position. Mild linear atelectasis is again noted within the left midlung zone. No new lung infiltrate or pleural effusion or pulmonary edema or lung mass or pneumothorax is seen. The heart size, pulmonary vasculature, mediastinum and both mary jane are stable. Sternotomy is evident. Impression: No new radiographic abnormality is seen.
[2016-09-20 10:55] VITALS: BP 127/71
--- NOTE | 2016-09-20 11:56 | PDOC ---
Infectious Disease Note Subjective Subjective Comfortable, denies pain No fever last 24 hours. ROS ROS GEN: Denies fevers, chills, sweats CV: Denies chest pain RESP: Denies shortness of air, cough GI: Denies n/v/d Vital Sign Vital Signs Vital Signs Date Time Temp Pulse Resp B/P Pulse Ox O2 Delivery O2 Flow Rate FiO2 09/20/16 10:55 96.1 81 20 127/71 99 Room Air 96.1 Physical Exam PHYSICAL EXAM GENERAL: Appears comfortable, smiled HEENT: Oral cavity dry LUNGS: Clear HEART: S1S2, no gallop, no murmur ABD: Obese, hyperactive BS, soft, no grimace to palpation. PDC intact. : Posterior penile and scrotal wounds EXT: No edema, no cyanosis. LUE AV fistula sutures intact. no redness/ swelling. 2 YEAR [employer]: Alert, responds appropriately SKIN: No rash RUE-PICC. (09/18). HDC. clean Labs Lab Laboratory Tests Test 09/19/16 16:32 09/19/16 20:41 09/20/16 06:35 09/20/16 07:22 Glucose (Fingerstick) 130mg/dL (70-99) 132mg/dL (70-99) 143mg/dL (70-99) White Blood Count 8.8x10^3/uL (4.0-11.0) Red Blood Count 2.58x10^6/uL (4.30-5.70) Hemoglobin 8.2g/dL (13.0-17.5) Hematocrit 25.0% (39.0-53.0) Mean Corpuscular Volume 97fL (79-100) Mean Corpuscular Hemoglobin 32pg (25-35) Mean Corpuscular Hemoglobin Concent 33g/dL (31-37) Red Cell Distribution Width 17.3% (11.5-14.5) Platelet Count 227x10^3/uL (140-400) Neutrophils (%) (Auto) 79% (31-73) Lymphocytes (%) (Auto) 10% (24-48) Monocytes (%) (Auto) 8% (0-9) Eosinophils (%) (Auto) 3% (0-3) Basophils (%) (Auto) 1% (0-3) Neutrophils # (Auto) 6.9x10^3uL (1.8-7.7) Lymphocytes # (Auto) 0.9x10^3/uL (1.0-4.8) Monocytes # (Auto) 0.7x10^3/uL (0.0-1.1) Eosinophils # (Auto) 0.2x10^3/uL (0.0-0.7) Basophils # (Auto) 0.1x10^3/uL (0.0-0.2) Sodium Level 138mmol/L (136-145) Potassium Level 4.3mmol/L (3.5-5.1) Chloride Level 95mmol/L (98-107) Carbon Dioxide Level 23mmol/L (21-32) Anion Gap 20 (6-14) Blood Urea Nitrogen 46mg/dL (8-26) Creatinine 4.0mg/dL (0.7-1.3) Estimated GFR (Cockcroft-Gault) 14.3 Glucose Level 153mg/dL (70-99) Calcium Level 8.7mg/dL (8.5-10.1) Micro scrotum Objective Assessment Fever. 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 Pancreatic lesions on CT Plan Plan of Care Change to po Augmentin (adjusted for renal function) Continue fluconazole Attending Co-Sign The patient was seen and interviewed as well as examined at the bedside. The chart was reviewed. The case was discussed. Agree with the plan of care. ORI PIPER APRN Sep 20, 2016 11:56 MARGARET RODRIGUES MD Sep 20, 2016 13:14
--- NOTE | 2016-09-20 13:04 | PDOC ---
Provider Note Provider Note Vascular F/U Stitches removed from lt arm KIMBERLY HENRIQUEZ MD Sep 20, 2016 13:04
[2016-09-20] MEDS ORDERED: PIPERACILLIN/TAZOBACTAM 4.5 GM in IV NORMAL SALINE 100ML 100 ML IV ONE (13:45)
[2016-09-20] MEDS: CYPROHEPTADINE 4 MG TABLET. PO SCH ×2 (14:00→20:29)
[2016-09-20 15:11] VITALS: BP 139/84
--- NOTE | 2016-09-20 16:51 | PDOC ---
PROGRESS NOTES Chief Complaint Chief Complaint cc: Scrotal pain -Cellulitis of the scrotum -CAD -CHF -OK -Peripheral neuropathy -Tonsillectomy -Cataract extraction -CABG -Hyperlipidemia -Atrial fibrillation -Hypertension -Colonic polyps -GERD -Dialysis -DM -Parathyroid disease -Smoking -Anemia -Skin cancer -Chronic renal failure History of Present Illness History of Present Illness Patient seen and evaluated at the bedside. No acute events overnight. Per , patient's pain is managed with the medications. Nursing noted patient's breathing has been swallow this AM, yet he is saturating 100% without any signs of respiratory distress. Dressings in place. d/w nurse about plan of care. Vitals Vitals Vital Signs Date Time Temp Pulse Resp B/P Pulse Ox O2 Delivery O2 Flow Rate FiO2 09/20/16 15:11 97.5 85 20 139/84 97 Room Air 97.5 Physical Exam General: Cooperative, No acute distress, Other (somnolent, with swallow breathing. responds to voice, but limited in following commands. ) Heart: Regular rate, Normal S1, Normal S2, No murmurs Lungs: Clear, Other (swallow breathing with prolonged time between inspirations , not apneic. Negative chest retractions and/or other accessory muscle use. ) Abdomen: Soft, No tenderness Extremities: No clubbing, No edema Skin: No rashes, No breakdown, Other (dressing intact clean, dry, without saturation. ) Labs LABS Laboratory Tests Test 09/19/16 20:41 09/20/16 06:35 09/20/16 07:22 09/20/16 12:02 Glucose (Fingerstick) 132mg/dL (70-99) 143mg/dL (70-99) 198mg/dL (70-99) White Blood Count 8.8x10^3/uL (4.0-11.0) Red Blood Count 2.58x10^6/uL (4.30-5.70) Hemoglobin 8.2g/dL (13.0-17.5) Hematocrit 25.0% (39.0-53.0) Mean Corpuscular Volume 97fL (79-100) Mean Corpuscular Hemoglobin 32pg (25-35) Mean Corpuscular Hemoglobin Concent 33g/dL (31-37) Red Cell Distribution Width 17.3% (11.5-14.5) Platelet Count 227x10^3/uL (140-400) Neutrophils (%) (Auto) 79% (31-73) Lymphocytes (%) (Auto) 10% (24-48) Monocytes (%) (Auto) 8% (0-9) Eosinophils (%) (Auto) 3% (0-3) Basophils (%) (Auto) 1% (0-3) Neutrophils # (Auto) 6.9x10^3uL (1.8-7.7) Lymphocytes # (Auto) 0.9x10^3/uL (1.0-4.8) Monocytes # (Auto) 0.7x10^3/uL (0.0-1.1) Eosinophils # (Auto) 0.2x10^3/uL (0.0-0.7) Basophils # (Auto) 0.1x10^3/uL (0.0-0.2) Sodium Level 138mmol/L (136-145) Potassium Level 4.3mmol/L (3.5-5.1) Chloride Level 95mmol/L (98-107) Carbon Dioxide Level 23mmol/L (21-32) Anion Gap 20 (6-14) Blood Urea Nitrogen 46mg/dL (8-26) Creatinine 4.0mg/dL (0.7-1.3) Estimated GFR (Cockcroft-Gault) 14.3 Glucose Level 153mg/dL (70-99) Calcium Level 8.7mg/dL (8.5-10.1) Review of Systems Review of Systems (+) pain to infection site. ROS limited secondary to somnolence and pt's current mental status. Assessment and Plan Assessmemt and Plan Problems Medical Problems: (1) Open wound of scrotum Status: Acute Assessment: 1.) scrotal cellulitis with associated pain s/p scrotal debridement and I&D on 09/07 with subsequent LUE Ligation of left arterio-venous fistula on 09/09 2.) suspect respiratory depression possibly to medications 2.) CAD with prior CABG 3.) Chronic diastolic CHF 4.) prior OK 5.) peripheral neuropathy 6.) Hyperlipidemia 7.) Atrial fibrillation 8.) Hypertension 9.) ESRD, on hemodialysis 10.) diabetes mellitus 11.) tobacco use 12.) anemia of chronic disease Plan: 1.) transition to PO augmentin, per ID 2.) continue local wound care per wound care team 3.) hemodialysis management per nephrology 4.) continue PT/OT 5.) continue home medications as appropriate 6.) continue pain regimen; possible d/c some narcotics and/or benzodiazepines to see if it affects respirations 7.) delirium management; encourage orientation and strict light management at night. 8.) monitor AM labs. 9.) SSI with glucose checks AC. 10.) continue elliquis for anticoagulation. gi ppx: protonix. 11.) appreciate subspecialty input 12.) continue discharge planning and coordination to LTAC vs. SNU Problems: Comment Review of Relevant I have reviewed the following items robert (where applicable) has been applied. Labs Laboratory Tests Test 09/18/16 21:17 09/19/16 07:46 09/19/16 11:47 09/19/16 16:32 Glucose (Fingerstick) 187mg/dL (70-99) 183mg/dL (70-99) 178mg/dL (70-99) 130mg/dL (70-99) Test 09/19/16 20:41 09/20/16 06:35 09/20/16 07:22 09/20/16 12:02 Glucose (Fingerstick) 132mg/dL (70-99) 143mg/dL (70-99) 198mg/dL (70-99) White Blood Count 8.8x10^3/uL (4.0-11.0) Red Blood Count 2.58x10^6/uL (4.30-5.70) Hemoglobin 8.2g/dL (13.0-17.5) Hematocrit 25.0% (39.0-53.0) Mean Corpuscular Volume 97fL (79-100) Mean Corpuscular Hemoglobin 32pg (25-35) Mean Corpuscular Hemoglobin Concent 33g/dL (31-37) Red Cell Distribution Width 17.3% (11.5-14.5) Platelet Count 227x10^3/uL (140-400) Neutrophils (%) (Auto) 79% (31-73) Lymphocytes (%) (Auto) 10% (24-48) Monocytes (%) (Auto) 8% (0-9) Eosinophils (%) (Auto) 3% (0-3) Basophils (%) (Auto) 1% (0-3) Neutrophils # (Auto) 6.9x10^3uL (1.8-7.7) Lymphocytes # (Auto) 0.9x10^3/uL (1.0-4.8) Monocytes # (Auto) 0.7x10^3/uL (0.0-1.1) Eosinophils # (Auto) 0.2x10^3/uL (0.0-0.7) Basophils # (Auto) 0.1x10^3/uL (0.0-0.2) Sodium Level 138mmol/L (136-145) Potassium Level 4.3mmol/L (3.5-5.1) Chloride Level 95mmol/L (98-107) Carbon Dioxide Level 23mmol/L (21-32) Anion Gap 20 (6-14) Blood Urea Nitrogen 46mg/dL (8-26) Creatinine 4.0mg/dL (0.7-1.3) Estimated GFR (Cockcroft-Gault) 14.3 Glucose Level 153mg/dL (70-99) Calcium Level 8.7mg/dL (8.5-10.1) Laboratory Tests Test 09/19/16 20:41 09/20/16 06:35 09/20/16 07:22 09/20/16 12:02 Glucose (Fingerstick) 132mg/dL (70-99) 143mg/dL (70-99) 198mg/dL (70-99) White Blood Count 8.8x10^3/uL (4.0-11.0) Red Blood Count 2.58x10^6/uL (4.30-5.70) Hemoglobin 8.2g/dL (13.0-17.5) Hematocrit 25.0% (39.0-53.0) Mean Corpuscular Volume 97fL (79-100) Mean Corpuscular Hemoglobin 32pg (25-35) Mean Corpuscular Hemoglobin Concent 33g/dL (31-37) Red Cell Distribution Width 17.3% (11.5-14.5) Platelet Count 227x10^3/uL (140-400) Neutrophils (%) (Auto) 79% (31-73) Lymphocytes (%) (Auto) 10% (24-48) Monocytes (%) (Auto) 8% (0-9) Eosinophils (%) (Auto) 3% (0-3) Basophils (%) (Auto) 1% (0-3) Neutrophils # (Auto) 6.9x10^3uL (1.8-7.7) Lymphocytes # (Auto) 0.9x10^3/uL (1.0-4.8) Monocytes # (Auto) 0.7x10^3/uL (0.0-1.1) Eosinophils # (Auto) 0.2x10^3/uL (0.0-0.7) Basophils # (Auto) 0.1x10^3/uL (0.0-0.2) Sodium Level 138mmol/L (136-145) Potassium Level 4.3mmol/L (3.5-5.1) Chloride Level 95mmol/L (98-107) Carbon Dioxide Level 23mmol/L (21-32) Anion Gap 20 (6-14) Blood Urea Nitrogen 46mg/dL (8-26) Creatinine 4.0mg/dL (0.7-1.3) Estimated GFR (Cockcroft-Gault) 14.3 Glucose Level 153mg/dL (70-99) Calcium Level 8.7mg/dL (8.5-10.1) Microbiology 09/07/16 Blood Culture - Final, Complete NO GROWTH AFTER 5 DAYS 09/17/16 Anaerobic/Aerobic Culture - Preliminary, Resulted 09/17/16 Anaerobic Culture Result 1 (RONEN) - Preliminary, Resulted 09/17/16 Aerobic Culture - Final, Resulted 09/17/16 Aerobic Culture Result 1 (RONEN) - Final, Resulted Medications Current Medications Meropenem/Sodium Chloride (Merrem/Iv Sodium Chloride 0.9% 100ml) 100 ml @ 200 mls/hr Q8HRS IV ; Start 09/07/16 at 22:00; Status UNV Vancomycin HCl 1 each 1 each PRN DAILY PRN MC SEE COMMENTS Last administered on 09/19/16 11:42; Start 09/07/16 at 20:45; Stop 09/20/16 at 11:56; Status DC Sodium Chloride (Iv Sodium Chloride 0.9% 500ml Bag) 500 ml @ 500 mls/hr 1X ONCE IV Last administered on 09/07/16 21:04; Start 09/07/16 at 21:00; Stop at 21:59; Status DC Hydromorphone HCl 1 mg 1 mg 1X ONCE IV Last administered on 09/07/16 20:59; Start 09/07/16 at 21:00; Stop 09/07/16 at 21:01; Status DC Meropenem 500 mg/ Sodium Chloride 50 ml @ 100 mls/hr QHS IV Last administered on 09/07/16 21:05; Start 09/07/16 at 21:00; Stop 09/08/16 at 07:59; Status DC Vancomycin HCl/ Sodium Chloride (Iv Sodium Chloride 0.9% 500ml Bag) 500 ml @ 250 mls/hr 1X ONCE IV Last administered on 09/07/16 22:07; Start 09/07/16 at 21:30; Stop 09/07/16 at 23:29; Status DC Ondansetron HCl (Zofran) 4 mg PRN Q8HRS PRN IV NAUSEA/VOMITING Last administered on 09/07/16 22:43; Start 09/07/16 at 22:00; Stop 09/08/16 at 21:59 ; Status DC Morphine Sulfate 4 mg 4 mg PRN Q2HR PRN IV SEVERE PAIN Last administered on 21:12; Start 09/07/16 at 22:00; Stop 09/08/16 at 21:59; Status DC Sodium Chloride (Iv Sodium Chloride 0.9% 1000ml Bag) 1,000 ml @ 75 mls/hr [id number] IV Last administered on 09/08/16 12:56; Start 09/07/16 at 21:52; Stop 09/08/16 at 21:51; Status DC Insulin Aspart (Novolog) 0-7 UNITS TIDWMEALS SQ ; Start 09/08/16 at 08:00; Stop 09/08/16 at 08:00; Status DC Dextrose (Dextrose 50%-Water Syringe) 12.5 gm PRN Q15MIN PRN IV SEE COMMENTS Last administered on 09/08/16 21:03; Start 09/07/16 at 22:30 Allopurinol (Zyloprim) 100 mg DAILY PO Last administered on 09/20/16 08:30; Start 09/08/16 at 09:00 Apixaban (Eliquis) 2.5 mg DAILY PO Last administered on 09/08/16 07:59; Start 09/08/16 at 09:00; Stop 09/08/16 at 10:43; Status DC Atorvastatin Calcium (Lipitor) 40 mg QHS PO Last administered on 09/19/16 21: 17; Start 09/08/16 at 21:00 Carvedilol (Coreg) 3.125 mg BIDWMEALS PO Last administered on 09/20/16 08:30; Start 09/08/16 at 08:00 Cinacalcet (Sensipar) 30 mg DAILY PO Last administered on 09/16/16 11:40; Start 09/08/16 at 09:00; Stop 09/17/16 at 10:47; Status DC Glimepiride (Amaryl) 4 mg DAILY PO Last administered on 09/08/16 07:59; Start 09/08/16 at 09:00; Stop 09/09/16 at 13:46; Status DC Acetaminophen/ Hydrocodone Bitart (Lortab 5/325) 1 tab PRN Q6HRS PRN PO SEVERE PAIN Last administered on 09/09/16 06:16; Start 09/07/16 at 22:30; Stop at 14:14; Status DC Polyethylene Glycol (miraLAX PACKET) 17 gm PRN DAILY PRN PO CONSTIPATION; Start 09/07/16 at 22:30 Sevelamer Carbonate (Renvela) 2.4 gm TIDWMEALS PO Last administered on 07:59; Start 09/08/16 at 08:00; Stop 09/08/16 at 12:01; Status DC Vitamin A/Vitamin D (Vitamin A & D Ointment) 1 katie TID TP Last administered on 09/16/16 20:37; Start 09/08/16 at 09:00; Stop 09/18/16 at 08:05; Status DC Docusate Sodium (Colace) 100 mg PRN DAILY PRN PO CONSTIPATION; Start 09/07/16 at 22:45 Docusate Sodium (Colace) 100 mg DAILY PO Last administered on 09/19/16 08:49; Start 09/08/16 at 09:00 Potassium Chloride (Klor-Con) 20 meq 1X ONCE PO Last administered on 01:38; Start 09/07/16 at 23:00; Stop 09/07/16 at 23:01; Status DC Insulin Aspart (Novolog) 0-7 UNITS QIDACHS SQ Last administered on 09/19/16 12 :16; Start 09/07/16 at 22:45 Info (Anti-Coagulation Monitoring By Pharmacy) 1 each PRN DAILY PRN MC SEE COMMENTS Last administered on 09/17/16 11:54; Start 09/07/16 at 23:45 Vancomycin HCl 1 each 1 each 1X ONCE MC ; Start 09/11/16 at 21:30; Stop at 21:30; Status DC Vancomycin HCl 1.5 gm/Sodium Chloride 500 ml @ 250 mls/hr Q48H IV ; Start 09/09 at 22:00; Stop 09/09/16 at 22:00; Status DC Piperacillin Sod/ Tazobactam Sod/ Sodium Chloride (Zosyn/Iv Sodium Chloride 0.9 % 50ml) 50 ml @ 100 mls/hr Q8HRS IV Last administered on 09/10/16 06:11; Start 09/08/16 at 08:30; Stop 09/10/16 at 09:00; Status DC Fluconazole (Diflucan) 100 mg DAILY PO Last administered on 09/20/16 08:30; Start 09/08/16 at 09:00 Darbepoetin Lasha (Aranesp) 60 mcg [id number] SQ Last administered on 09/15/16 21 :23; Start 09/08/16 at 21:00 Apixaban (Eliquis) 2.5 mg BID PO Last administered on 09/20/16 08:30; Start at 21:00 Vancomycin HCl 1 each 1X ONCE MC Last administered on 09/09/16 06:00; Start 09/09/16 at 06:00; Stop 09/09/16 at 06:01; Status DC Sevelamer Carbonate (Renvela) 2,400 mg TIDWMEALS PO Last administered on 08:43; Start 09/08/16 at 12:00 Insulin Aspart (Novolog) 8 units TIDAC SQ Last administered on 09/10/16 08:41 ; Start 09/08/16 at 12:00; Stop 09/10/16 at 10:17; Status DC Lorazepam (Ativan) 0.5 mg PRN Q6HRS PRN PO ANXIETY / AGITATION Last administered on 09/19/16 11:23; Start 09/08/16 at 13:00 Fentanyl Citrate (Fentanyl 2ml Vial) 25 mcg PRN Q5MIN PRN IV MILD PAIN; Start 09/09/16 at 07:00; Stop 09/10/16 at 06:59; Status DC Fentanyl Citrate (Fentanyl 2ml Vial) 50 mcg PRN Q5MIN PRN IV MODERATE PAIN; Start 09/09/16 at 07:00; Stop 09/10/16 at 06:59; Status DC Morphine Sulfate 1 mg PRN Q10MIN PRN IV SEVERE PAIN; Start 09/09/16 at 07:00; Stop 09/10/16 at 06:59; Status DC Lidocaine HCl 2 ml PRN 1X PRN ID PRIOR TO IV START; Start 09/09/16 at 07:00; Stop 09/10/16 at 06:59; Status DC Hydromorphone HCl (Dilaudid) 0.5 mg PRN Q10MIN PRN IV SEV PAIN, Second choice; Start 09/09/16 at 07:00; Stop 09/10/16 at 06:59; Status DC Prochlorperazine Edisylate 5 mg 5 mg PACU PRN PRN IV NAUSEA, MRX1; Start at 07:00; Stop 09/10/16 at 06:59; Status DC Sodium Chloride (Iv Sodium Chloride 0.9% 1000ml Bag) 1,000 ml @ 0 mls/hr Q0M IV ; Start 09/09/16 at 12:00; Stop 09/10/16 at 10:51; Status DC Morphine Sulfate 4 mg PRN Q2HR PRN IV SEVERE PAIN Last administered on 10:43; Start 09/09/16 at 01:00; Stop 09/11/16 at 15:23; Status DC Lidocaine HCl 30 ml STK-MED ONCE .ROUTE ; Start 09/09/16 at 07:12; Stop at 07:13; Status Cancel Cellulose 1 each STK-MED ONCE .ROUTE ; Start 09/09/16 at 07:12; Stop 09/09/16 at 07:13; Status Cancel Papaverine HCl 60 mg 60 mg STK-MED ONCE .ROUTE ; Start 09/09/16 at 07:13; Stop 09/09/16 at 07:14; Status Cancel Sodium Chloride 1,000 ml @ 1,000 mls/hr Q1H PRN IV hypotension; Start 09/09/16 at 07:30; Stop 09/09/16 at 13:29; Status DC Albumin Human (Albuminar) 200 ml @ 200 mls/hr 1X PRN PRN IV Hypotension Last administered on 09/09/16t 09:37; Start 09/09/16 at 07:30; Stop 09/09/16 at 13:29 ; Status DC Acetaminophen (Tylenol) 500 mg 1X PRN PRN PO MILD PAIN / TEMP; Start 09/09/16 at 07:30; Stop 09/10/16 at 07:29; Status DC Diphenhydramine HCl (Benadryl) 25 mg 1X PRN PRN IV ITCHING; Start 09/09/16 at 07:30; Stop 09/10/16 at 07:29; Status DC Diphenhydramine HCl (Benadryl) 25 mg 1X PRN PRN IV ITCHING; Start 09/09/16 at 07:30; Stop 09/10/16 at 07:29; Status DC Labetalol HCl (Normodyne) 10 mg PRN Q1HR PRN IVP SBP > 180; Start 09/09/16 at 07:30; Stop 09/10/16 at 07:29; Status DC Clonidine HCl 0.1 mg 0.1 mg 1X PRN PRN PO SBP > 180; Start 09/09/16 at 07:30; Stop 09/10/16 at 07:29; Status DC Sodium Chloride (Iv Sodium Chloride 0.9% 1000ml Bag) 1,000 ml @ 400 mls/hr Q2H30M PRN IV PATENCY; Start 09/09/16 at 07:30; Stop 09/09/16 at 19:29; Status DC Info 1 each 1 each PRN DAILY PRN MC SEE COMMENTS; Start 09/09/16 at 07:30; Stop 09/14/16 at 10:15; Status DC Heparin Sodium (Porcine) 5000 unit/Sodium Chloride 505 ml @ 505 mls/hr 1X PERIOP ONCE IRR ; Start 09/09/16 at 09:00; Stop 09/09/16 at 09:59; Status DC Cefazolin Sodium 1 gm/Sodium Chloride 500 ml @ 500 mls/hr 1X PERIOP ONCE IRR ; Start 09/09/16 at 09:00; Stop 09/09/16 at 09:59; Status DC Cefazolin Sodium (Ancef 1gm Ivpb For Omni) 0 ml @ As Directed STK-MED ONCE IV ; Start 09/09/16 at 13:23; Stop 09/09/16 at 13:24; Status DC Acetaminophen/ Hydrocodone Bitart (Lortab 5/325) 1 tab PRN Q4HRS PRN PO PAIN; Start 09/09/16 at 14:15; Stop 09/11/16 at 11:52; Status DC Acetaminophen/ Hydrocodone Bitart (Lortab 5/325) 2 tab PRN Q4HRS PRN PO PAIN Last administered on 09/11/16t 04:49; Start 09/09/16 at 14:15; Stop 09/11/16 at 11:52; Status DC Midazolam HCl (Versed) 2 mg STK-MED ONCE .ROUTE ; Start 09/09/16 at 14:06; Stop 09/09/16 at 14:07; Status DC Fentanyl Citrate 100 mcg 100 mcg STK-MED ONCE .ROUTE ; Start 09/09/16 at 14:06; Stop 09/09/16 at 14:07; Status DC Vancomycin HCl/ Sodium Chloride (Iv Sodium Chloride 0.9% 100ml) 100 ml @ 100 mls/hr QMWF IV Last administered on 09/09/16t 17:36; Start 09/09/16 at 16:00; Stop 09/11/16 at 15:32; Status DC Lidocaine HCl 20 ml STK-MED ONCE .ROUTE ; Start 09/09/16 at 14:11; Stop at 14:12; Status DC Lidocaine HCl 20 ml STK-MED ONCE .ROUTE ; Start 09/09/16 at 14:11; Stop at 14:12; Status Cancel Cellulose 1 each STK-MED ONCE .ROUTE ; Start 09/09/16 at 14:12; Stop 09/09/16 at 14:13; Status Cancel Papaverine HCl 60 mg 60 mg STK-MED ONCE .ROUTE ; Start 09/09/16 at 14:12; Stop 09/09/16 at 14:13; Status DC Propofol (Diprivan) 20 ml @ As Directed STK-MED ONCE IV ; Start 09/09/16 at 14: 51; Stop 09/09/16 at 14:52; Status DC Amoxicillin/ Clavulanate Potassium (Augmentin 500/ 125mg) 1 tab DAILY PO Last administered on 09/10/16 10:43; Start 09/10/16 at 10:00; Stop 09/11/16 at 10:47 ; Status DC Insulin Aspart (Novolog) 5 units TIDAC SQ Last administered on 09/19/16 12:17 ; Start 09/10/16 at 11:30 Insulin Detemir (Levemir) 10 units QHS SQ Last administered on 09/10/16 21:46 ; Start 09/10/16 at 21:00; Stop 09/11/16 at 10:42; Status DC Sodium Thiosulfate 25 gm 25 gm 3X/WEEK IV ; Start 09/11/16 at 09:00; Status UNV Magnesium Sulfate/ Dextrose 50 ml @ 25 mls/hr PRN DAILY PRN IV for Mag < 1.7 on am labs; Start 09/10/16 at 10:45 Sodium Thiosulfate 25 gm/ Sodium Chloride 100 ml @ 100 mls/hr 3X/WEEK@16 IV Last administered on 09/18/16 15:11; Start 09/11/16 at 16:00; Stop 09/18/16 at 18:00; Status DC Amino Acids/ Glycerin/ Electrolytes (Procalamine) 1,000 ml @ 80 mls/hr [id number] IV Last administered on 09/19/16 17:05; Start 09/10/16 at 11:30 Fentanyl Citrate (Fentanyl 2ml Vial) 25 mcg PRN Q2HR PRN IV PAIN Last administered on 09/13/16 17:02; Start 09/10/16 at 13:00; Stop 09/13/16 at 18:42 ; Status DC Albuterol Sulfate (Ventolin Neb Soln) 2.5 mg PRN Q4HRS PRN NEB SHORTNESS OF BREATH Last administered on 09/12/16 08:56; Start 09/10/16 at 13:30 Tramadol HCl (Ultram) 50 mg PRN Q6HRS PRN PO PAIN Last administered on 08:39; Start 09/10/16 at 13:45 Ondansetron HCl (Zofran) 4 mg PRN Q6HRS PRN IV NAUSEA/VOMITING Last administered on 09/11/16 08:39; Start 09/10/16 at 19:15 Calcium Carbonate/ Glycine (Tums) 500 mg TID PRN PO INDIGESTION; Start at 19:15; Stop 09/17/16 at 10:47; Status DC Pantoprazole Sodium (Protonix) 40 mg DAILYAC PO Last administered on 09/20/16 08:30; Start 09/10/16 at 20:00 Prochlorperazine Edisylate (Compazine) 10 mg PRN Q6HRS PRN IV NAUSEA/VOMITING Last administered on 09/11/16 10:49; Start 09/11/16 at 10:30 Insulin Detemir (Levemir) 15 units QHS SQ Last administered on 09/19/16 21:27 ; Start 09/11/16 at 21:00 Metoclopramide HCl 5 mg 5 mg PRN Q6HRS PRN IV NAUSEA/VOMITING Last administered on 09/11/16 20:55; Start 09/11/16 at 10:45 Piperacillin Sod/ Tazobactam Sod/ Sodium Chloride (Zosyn/Iv Sodium Chloride 0.9 % 50ml) 50 ml @ 100 mls/hr Q8HRS IV Last administered on 09/20/16 05:49; Start 09/11/16 at 14:00; Stop 09/20/16 at 11:56; Status DC Oxycodone/ Acetaminophen 1 tab 1 tab PRN Q4HRS PRN PO PAIN Last administered on 09/19/16 19:49; Start 09/11/16 at 12:00 Sodium Thiosulfate/ Sodium Chloride (Sodium Thiosulfate/Iv Sodium Chloride 0.9% 100ml) 100 ml @ 100 mls/hr 1X ONCE IV Last administered on 09/12/16 16:00; Start 09/12/16 at 16:00; Stop 09/12/16 at 16:59; Status DC Lorazepam (Ativan) 1 mg 1X ONCE IV ; Start 09/11/16 at 18:00; Stop 09/11/16 at 18:01; Status DC Haloperidol Lactate (Haldol) 2 mg PRN Q24HRS PRN IVP AGITATION Last administered on 09/14/16 11:04; Start 09/11/16 at 18:00; Stop 09/14/16 at 15:06 ; Status DC Lorazepam 1 mg 1 mg 1X ONCE IV Last administered on 09/12/16 03:14; Start at 01:00; Stop 09/12/16 at 01:01; Status DC Sodium Chloride (Iv Sodium Chloride 0.9% 1000ml Bag) 1,000 ml @ 1,000 mls/hr Q1H PRN IV hypotension; Start 09/12/16 at 08:00; Stop 09/12/16 at 13:59; Status DC Diphenhydramine HCl 50 mg 50 mg 1X PRN PRN IV ITCHING Last administered on 09/12 09:06; Start 09/12/16 at 08:45; Stop 09/12/16 at 16:00; Status DC Sodium Chloride (Iv Sodium Chloride 0.9% 1000ml Bag) 1,000 ml @ 400 mls/hr Q2H30M PRN IV PATENCY; Start 09/12/16 at 08:00; Stop 09/12/16 at 19:59; Status DC Info (PHARMACY MONITORING -- do not chart) 1 each PRN DAILY PRN MC SEE COMMENTS ; Start 09/12/16 at 08:45; Status UNV Lorazepam 0.5 mg 0.5 mg PRN Q6HRS PRN IV ANXIETY / AGITATION Last administered on 09/14/16 23:37; Start 09/12/16 at 11:00 Vancomycin HCl/ Sodium Chloride (Iv Sodium Chloride 0.9% 100ml) 100 ml @ 100 mls/hr 1X ONCE IV Last administered on 09/12/16 14:40; Start 09/12/16 at 13: 00; Stop 09/12/16 at 13:59; Status DC Fentanyl Citrate (Fentanyl 2ml Vial) 50 mcg PRN Q2HR PRN IV PAIN Last administered on 09/17/16 13:12; Start 09/13/16 at 18:45 Morphine Sulfate 1 mg PRN Q2HR PRN IV PAIN Last administered on 09/15/16 08:51 ; Start 09/13/16 at 18:45; Stop 09/15/16 at 10:39; Status DC Lidocaine (Lidoderm) 1 patch DAILY TD ; Start 09/13/16 at 19:00; Stop 09/13/16 at 19:16; Status DC Lidocaine HCl 1 katie 1 katie TID TP Last administered on 09/16/16 20:37; Start at 21:00; Stop 09/18/16 at 08:05; Status DC Sodium Chloride (Iv Sodium Chloride 0.9% 1000ml Bag) 1,000 ml @ 1,000 mls/hr Q1H PRN IV hypotension; Start 09/14/16 at 10:06; Stop 09/14/16 at 16:05; Status DC Sodium Chloride (Normal Saline Flush) 10 ml 1X PRN PRN IV AP catheter pack; Start 09/14/16 at 10:15; Stop 09/15/16 at 10:14; Status DC Sodium Chloride 10 ml 10 ml 1X PRN PRN IV CLAIM INSPECTOR catheter pack; Start 09/14/16 at 10:15; Stop 09/15/16 at 10:14; Status DC Sodium Chloride (Iv Sodium Chloride 0.9% 1000ml Bag) 1,000 ml @ 400 mls/hr Q2H30M PRN IV PATENCY; Start 09/14/16 at 10:06; Stop 09/14/16 at 22:05; Status DC Info 1 each 1 each PRN DAILY PRN MC SEE COMMENTS; Start 09/14/16 at 10:15 Vancomycin HCl 500 mg/Sodium Chloride 100 ml @ 100 mls/hr 1X ONCE IV Last administered on 09/14/16 15:30; Start 09/14/16 at 13:00; Stop 09/14/16 at 13:59 ; Status DC Vancomycin HCl/ Sodium Chloride (Iv Sodium Chloride 0.9% 100ml) 100 ml @ 100 mls/hr QMWF IV Last administered on 09/18/16 17:52; Start 09/16/16 at 16:00; Stop 09/20/16 at 11:56; Status DC Haloperidol Lactate (Haldol) 2 mg PRN Q6HRS PRN IVP AGITATION Last administered on 09/19/16 10:04; Start 09/14/16 at 18:00 Fentanyl (Duragesic 50mcg/ Hr Patch) 1 patch Q3DAYS TD Last administered on 12:25; Start 09/15/16 at 11:00; Stop 09/15/16 at 16:57; Status DC Haloperidol Lactate 5 mg 5 mg PRN Q6HRS PRN IVP AGITATION Last administered on 09/20/16 01:15; Start 09/15/16 at 12:15 Sodium Chloride 1,000 ml @ 1,000 mls/hr Q1H PRN IV hypotension; Start 09/15/16 at 12:16; Stop 09/15/16 at 18:15; Status DC Albumin Human (Albuminar) 200 ml @ 200 mls/hr 1X PRN PRN IV Hypotension; Start 09/15/16 at 12:30; Stop 09/15/16 at 18:29; Status DC Acetaminophen (Tylenol) 500 mg 1X PRN PRN PO MILD PAIN / TEMP; Start 09/15/16 at 12:30; Stop 09/16/16 at 12:29; Status DC Diphenhydramine HCl (Benadryl) 25 mg 1X PRN PRN IV ITCHING; Start 09/15/16 at 12:30; Stop 09/16/16 at 12:29; Status DC Diphenhydramine HCl (Benadryl) 25 mg 1X PRN PRN IV ITCHING; Start 09/15/16 at 12:30; Stop 09/16/16 at 12:29; Status DC Labetalol HCl (Normodyne) 10 mg PRN Q1HR PRN IVP SBP > 180; Start 09/15/16 at 12:30; Stop 09/16/16 at 12:29; Status DC Clonidine HCl 0.1 mg 0.1 mg 1X PRN PRN PO SBP > 180; Start 09/15/16 at 12:30; Stop 09/16/16 at 12:29; Status DC Sodium Chloride (Iv Sodium Chloride 0.9% 1000ml Bag) 1,000 ml @ 400 mls/hr Q2H30M PRN IV PATENCY; Start 09/15/16 at 12:16; Stop 09/16/16 at 00:15; Status DC Info (PHARMACY MONITORING -- do not chart) 1 each PRN DAILY PRN MC SEE COMMENTS ; Start 09/15/16 at 12:30; Status UNV Fentanyl 1 patch 1 patch Q3DAYS TD Last administered on 09/18/16t 12:12; Start 09/15/16 at 17:00 Sodium Chloride 1,000 ml @ 1,000 mls/hr Q1H PRN IV hypotension; Start 09/16/16 at 08:34; Stop 09/16/16 at 14:33; Status DC Albumin Human (Albuminar) 200 ml @ 200 mls/hr 1X PRN PRN IV Hypotension; Start 09/16/16 at 08:45; Stop 09/16/16 at 14:44; Status DC Acetaminophen (Tylenol) 500 mg 1X PRN PRN PO MILD PAIN / TEMP; Start 09/16/16 at 08:45; Stop 09/17/16 at 08:44; Status DC Diphenhydramine HCl (Benadryl) 25 mg 1X PRN PRN IV ITCHING; Start 09/16/16 at 08:45; Stop 09/17/16 at 08:44; Status DC Diphenhydramine HCl (Benadryl) 25 mg 1X PRN PRN IV ITCHING; Start 09/16/16 at 08:45; Stop 09/17/16 at 08:44; Status DC Labetalol HCl (Normodyne) 10 mg PRN Q1HR PRN IVP SBP > 180; Start 09/16/16 at 08:45; Stop 09/17/16 at 08:44; Status DC Clonidine HCl 0.1 mg 0.1 mg 1X PRN PRN PO SBP > 180; Start 09/16/16 at 08:45; Stop 09/17/16 at 08:44; Status DC Sodium Chloride (Iv Sodium Chloride 0.9% 1000ml Bag) 1,000 ml @ 400 mls/hr Q2H30M PRN IV PATENCY; Start 09/16/16 at 08:34; Stop 09/16/16 at 20:33; Status DC Info (PHARMACY MONITORING -- do not chart) 1 each PRN DAILY PRN MC SEE COMMENTS ; Start 09/16/16 at 08:45; Status UNV Nystatin 5 ml [id number] Last administered on 09/20/16 08:30; Start at 13:00 Fentanyl Citrate (Fentanyl 2ml Vial) 25 mcg PRN Q5MIN PRN IV MILD PAIN; Start 09/17/16 at 07:00; Stop 09/18/16 at 06:59; Status DC Fentanyl Citrate (Fentanyl 2ml Vial) 50 mcg PRN Q5MIN PRN IV MODERATE PAIN Last administered on 09/17/16 16:26; Start 09/17/16 at 07:00; Stop 09/18/16 at 06:59; Status DC Morphine Sulfate 1 mg PRN Q10MIN PRN IV SEVERE PAIN; Start 09/17/16 at 07:00; Stop 09/18/16 at 06:59; Status DC Lidocaine HCl 2 ml PRN 1X PRN ID PRIOR TO IV START; Start 09/17/16 at 07:00; Stop 09/18/16 at 06:59; Status DC Hydromorphone HCl (Dilaudid) 0.5 mg PRN Q10MIN PRN IV SEV PAIN, Second choice; Start 09/17/16 at 07:00; Stop 09/18/16 at 06:59; Status DC Prochlorperazine Edisylate 5 mg 5 mg PACU PRN PRN IV NAUSEA, MRX1 Last administered on 09/17/16 15:42; Start 09/17/16 at 07:00; Stop 09/18/16 at 06:59 ; Status DC Sodium Chloride 1,000 ml @ 0 mls/hr Q0M IV ; Start 09/17/16 at 12:00; Stop at 09:11; Status DC Sodium Phosphate/ Dextrose 256.6667 ml @ 64.167 m... 1X ONCE IV Last administered on 09/17/16 14:12; Start 09/17/16 at 11:00; Stop 09/17/16 at 14:59 ; Status DC Cyproheptadine HCl 4 mg 4 mg PRN TID PRN PO ALLERGIES; Start 09/17/16 at 10:45 ; Stop 09/20/16 at 14:00; Status DC Peritoneal Dialysis Solution (Dianeal With 1.5% Dextrose) 2,000 ml @ 671.667 mls/hr 1X ONCE IP Last administered on 09/17/16 18:46; Start 09/17/16 at 10: 45; Stop 09/17/16 at 13:43; Status DC Fentanyl Citrate 100 mcg 100 mcg STK-MED ONCE .ROUTE ; Start 09/17/16 at 13:48; Stop 09/17/16 at 13:49; Status DC Propofol (Diprivan) 20 ml @ As Directed STK-MED ONCE IV ; Start 09/17/16 at 13: 48; Stop 09/17/16 at 13:49; Status DC Dexamethasone Sodium Phosphate (Decadron) 20 mg STK-MED ONCE .ROUTE ; Start at 13:50; Stop 09/17/16 at 13:51; Status DC Ondansetron HCl (Zofran) 4 mg STK-MED ONCE .ROUTE ; Start 09/17/16 at 13:50; Stop 09/17/16 at 13:51; Status DC Povidone Iodine ( Betadine Oint) 28 katie STK-MED ONCE TP Last administered on 14:20; Start 09/17/16 at 14:50; Stop 09/17/16 at 14:51; Status DC Sevoflurane (Ultane) 60 ml STK-MED ONCE IH ; Start 09/17/16 at 15:16; Stop 09/17 at 15:17; Status DC Lidocaine HCl (Lidocaine HCl 2% Abboject) 100 mg STK-MED ONCE .ROUTE ; Start at 15:17; Stop 09/17/16 at 15:18; Status DC Insulin Aspart (Novolog Vial) 6 unit 1X ONCE SQ Last administered on 16:33; Start 09/17/16 at 16:30; Stop 09/17/16 at 16:31; Status DC Insulin Aspart (Novolog Vial) 100 unit STK-MED ONCE SQ ; Start 09/17/16 at 16:29 ; Stop 09/17/16 at 16:30; Status DC Morphine Sulfate (Morphine Ir) 15 mg PRN Q4HRS PRN PO SEVERE PAIN Last administered on 09/18/16 21:15; Start 09/17/16 at 22:00 Lorazepam 1 mg 1 mg 1X ONCE PO Last administered on 09/17/16 22:01; Start at 22:30; Stop 09/17/16 at 22:31; Status DC Sodium Chloride (Iv Sodium Chloride 0.9% 1000ml Bag) 1,000 ml @ 1,000 mls/hr Q1H PRN IV hypotension; Start 09/18/16 at 08:10; Stop 09/18/16 at 14:09; Status DC Sodium Chloride (Normal Saline Flush) 10 ml 1X PRN PRN IV AP catheter pack; Start 09/18/16 at 08:15; Stop 09/19/16 at 08:14; Status DC Sodium Chloride (Normal Saline Flush) 10 ml 1X PRN PRN IV CLAIM INSPECTOR catheter pack; Start 09/18/16 at 08:15; Stop 09/19/16 at 08:14; Status DC Info (PHARMACY MONITORING -- do not chart) 1 each PRN DAILY PRN MC SEE COMMENTS ; Start 09/18/16 at 08:15; Status UNV Info (PHARMACY MONITORING -- do not chart) 1 each PRN DAILY PRN MC SEE COMMENTS ; Start 09/18/16 at 08:15; Status UNV Vancomycin HCl 1 each 1X ONCE MC Last administered on 09/18/16 16:00; Start 09/18/16 at 16:00; Stop 09/18/16 at 16:01; Status DC Lidocaine/Sodium Bicarbonate 20 ml 20 ml STK-MED ONCE IJ ; Start 09/18/16 at 13: 09; Stop 09/18/16 at 13:10; Status DC Heparin Sodium/ Sodium Chloride 500 ml @ As Directed STK-MED ONCE .ROUTE ; Start 09/18/16 at 13:09; Stop 09/18/16 at 13:10; Status DC Heparin Sodium/ Sodium Chloride 1,000 unit 1X ONCE IART Last administered on 13:39; Start 09/18/16 at 13:30; Stop 09/18/16 at 13:31; Status DC Lidocaine/Sodium Bicarbonate 20 ml 20 ml 1X ONCE IJ Last administered on 13:39; Start 09/18/16 at 13:30; Stop 09/18/16 at 13:31; Status DC Sodium Thiosulfate/ Miscellaneous (Sodium Thiosulfate) 100 ml @ 100 mls/hr 3X/ WEEK@16 IV ; Start 09/21/16 at 16:00 Collagenase (Santyl) 1 katie DAILY TP ; Start 09/19/16 at 09:00; Status UNV Collagenase (Santyl) 1 katie 1X ONCE TP ; Start 09/18/16 at 16:00; Stop 09/18/16 at 16:01; Status DC Cyproheptadine HCl (Periactin) 4 mg TID PO ; Start 09/20/16 at 14:00 Furosemide (Lasix) 80 mg 1X ONCE IVP Last administered on 09/20/16t 10:32; Start 09/20/16 at 09:15; Stop 09/20/16 at 10:26; Status DC Amoxicillin/ Clavulanate Potassium 1 tab 1 tab DAILY PO ; Start 09/20/16 at 12: 00 Piperacillin Sod/ Tazobactam Sod/ Sodium Chloride (Zosyn/Iv Sodium Chloride 0.9 % 100ml) 100 ml @ 200 mls/hr 1X ONCE IV ; Start 09/20/16 at 13:45; Stop at 14:14; Status UNV Active Scripts Active Mupirocin Ointment (Mupirocin) 22 Gm Oint...g. 1 Katie TP TID Vitamin A & D Ointment (Vits A & D/White Pet/Lanolin) 56.7 Gm Oint...g. 1 Katie TP TID Diflucan (Fluconazole) 100 Mg Tablet 100 Mg PO DAILY Allopurinol 100 Mg Tablet 100 Mg PO DAILY Hydrocodone-Apap 5-325 (Hydrocodone Bit/Acetaminophen) 1 Each Tablet 1 Tab PO Q6HRS PRN Eliquis (Apixaban) 2.5 Mg Tablet 2.5 Mg PO DAILY Renvela (Sevelamer Carbonate) 2.4 Gm Powd.pack 2.4 Gm PO TIDWMEALS Miralax (Polyethylene Glycol 3350) 17 Gm Powd.pack 17 Gm PO PRN DAILY PRN Carvedilol 3.125 Mg Tablet 3.125 Mg PO BIDWMEALS Reported Sensipar (Cinacalcet Hcl) 30 Mg Tablet 1 Tab PO DAILY Glimepiride 2 Mg Tablet 4 Mg PO DAILY Novolog (Insulin Aspart) 100 Unit/1 Ml Cartridge 8 Unit SQ TIDAC Atorvastatin Calcium 40 Mg Tablet 1 Tab PO DAILY Vitals/I & O Vital Sign - Last 24 Hours 09/19/16 09/19/16 09/19/16 09/19/16 19:43 19:49 20:00 21:00 Temp 97.9 97.9 Pulse 103 Resp 18 16 18 B/P 137/77 Pulse Ox 95 O2 Delivery Room Air Room Air Room Air Room Air 09/19/16 09/19/16 09/20/16 09/20/16 21:34 23:27 03:04 07:00 Temp 98.1 97.5 97.8 96.1 98.1 97.5 97.8 96.1 Pulse 100 98 88 Resp 18 18 16 B/P 139/69 139/77 133/62 Pulse Ox 97 93 100 O2 Delivery Room Air Room Air Room Air 09/20/16 09/20/16 09/20/16 09/20/16 08:20 08:30 10:55 15:11 Temp 96.1 97.5 96.1 97.5 Pulse 88 81 85 Resp 20 20 B/P 133/62 127/71 139/84 Pulse Ox 99 97 O2 Delivery Room Air Room Air Room Air Intake and Output 09/19/16 09/19/16 09/20/16 15:00 23:00 07:00 Intake Total 160 ml Output Total 150 ml Balance -150 ml 160 ml CARLOTA BAZAN III DO Sep 20, 2016 16:51
[2016-09-20] MEDS: AMINO AC 3%/ELECTROLYTE/GLYCER 1,000 ML IV SCH ×2 (16:57→20:29)
[2016-09-20] MEDS: AMOXICILLIN/K CLAV 500/125MG TABLET. PO SCH (17:06)
[2016-09-20 19:00] VITALS: BP 142/76
[2016-09-20] MEDS: ATORVASTATIN CALCIUM 40 MG TABLET. PO SCH (20:29)
[2016-09-20] MEDS: INSULIN DETEMIR 300 UNITS/3 ML INSULN.PEN. SQ SCH (20:54)
[2016-09-20 23:00] VITALS: BP 134/73
[2016-09-21] MEDS: AMINO AC 3%/ELECTROLYTE/GLYCER 1,000 ML IV SCH ×2 (05:51→20:39)
[2016-09-21 06:27] LABS: BASO # 0.1 x10^3/uL (0.0-0.2); BASO % 1 % (0-3); EOS % 4 % (0-3); HEMATOCRIT 26.3 % (39.0-53.0); HEMOGLOBIN 8.6 g/dL (13.0-17.5); LYMPH # 1.1 x10^3/uL (1.0-4.8); LYMPH % 12 % (24-48); MEAN CORPUSCULAR HEMOGLOBIN 32 pg (25-35); MEAN CORPUSCULAR HGB CONC 33 g/dL (31-37); MEAN CORPUSCULAR VOLUME 97 fL (79-100); MONO % 8 % (0-9); NEUT % 76 % (31-73); PLATELET COUNT 251 x10^3/uL (140-400); RED BLOOD COUNT 2.73 x10^6/uL (4.30-5.70); RED CELL DISTRIBUTION WIDTH 17.5 % (11.5-14.5); WHITE BLOOD COUNT 8.8 x10^3/uL (4.0-11.0)
[2016-09-21 06:37] LABS: CALCIUM 8.9 mg/dL (8.5-10.1); CREATININE 4.8 mg/dL (0.7-1.3); GFR 11.6
[2016-09-21 07:05] VITALS: BP 118/49
[2016-09-21] MEDS: INSULIN ASPART 300 UNITS/3 ML INSULN.PEN SQ SCH ×7 (07:30→21:00)
[2016-09-21] MEDS: NYSTATIN 100,000 UNITS/ML 5 ML ORAL.SUSP. SWSW SCH ×4 (07:51→21:00)
[2016-09-21] MEDS: APIXABAN 2.5 MG TABLET. PO SCH ×2 (07:51→21:00)
[2016-09-21] MEDS: PANTOPRAZOLE 40 MG TABLET.DR. PO SCH (07:51)
[2016-09-21] MEDS: FLUCONAZOLE 100 MG TABLET. PO SCH (07:51)
[2016-09-21] MEDS: ALLOPURINOL 100 MG TABLET. PO SCH (07:52)
[2016-09-21] MEDS: oxyCODONE/APAP 5/325 1 TAB TABLET PO PRN ×2 (07:52→21:29)
[2016-09-21] MEDS: DOCUSATE SODIUM 100 MG CAPSULE. PO SCH (07:52)
[2016-09-21] MEDS: CYPROHEPTADINE 4 MG TABLET. PO SCH ×3 (07:52→21:28)
[2016-09-21] MEDS: AMOXICILLIN/K CLAV 500/125MG TABLET. PO SCH (07:52)
[2016-09-21] MEDS: fentaNYL 12MCG/HR PATCH 1 PATCH PATCH.TD72 TD SCH (07:53)
[2016-09-21] MEDS: SEVELAMER CARBONATE 800 MG TABLET. PO SCH ×3 (08:00→17:00)
[2016-09-21] MEDS: CARVEDILOL 3.125 MG TABLET. PO SCH ×2 (08:00→17:00)
[2016-09-21] MEDS ORDERED: IV NORMAL SALINE 1000ML BAG 1,000 ML IV PRN ×2 (10:03)
[2016-09-21] MEDS ORDERED: 0.9 % SODIUM CHLORIDE 10 ML DISP.SYRIN. IV PRN ×2 (10:15)
[2016-09-21] MEDS ORDERED: DIALYSIS PATIENT. MC PRN (10:15)
[2016-09-21] MEDS ORDERED: ALBUMIN HUMAN 25% 200 ML IV PRN (10:15)
[2016-09-21] MEDS: ANTI-COAG MONITOR BY PHARMACY. MC PRN (10:59)
--- NOTE | 2016-09-21 11:19 | PDOC ---
Infectious Disease Note Subjective Subjective Comfortable, denies pain No fever last 24 hours. ROS ROS GEN: Denies fevers, chills, sweats HEENT: Denies blurred vision, sore throat CV: Denies chest pain RESP: Denies shortness of air, cough GI: Denies n/v/d NEURO: Denies confusion, dizziness MSK: Denies weakness, joint pain/swelling Vital Sign Vital Signs Vital Signs Date Time Temp Pulse Resp B/P Pulse Ox O2 Delivery O2 Flow Rate FiO2 09/21/16 07:53 Nasal Cannula 2.0 09/21/16 07:05 97.5 95 20 118/49 94 97.5 Physical Exam PHYSICAL EXAM GENERAL: NAD, Alert HEENT: PERRL, OC/OP NECK: Supple, no JVD, no LN LUNGS: Clear HEART: S1S2, no gallop, no murmur ABD: Soft, NT, no organomegaly, no rebound EXT: No edema, no cyanosis 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: Alert, oriented x 3, no focal neurologic deficit SKIN: No rash IV: ok Labs Lab Laboratory Tests Test 09/20/16 12:02 09/20/16 17:00 09/20/16 20:45 09/21/16 05:45 Glucose (Fingerstick) 198mg/dL (70-99) 233mg/dL (70-99) 202mg/dL (70-99) White Blood Count 8.8x10^3/uL (4.0-11.0) Red Blood Count 2.73x10^6/uL (4.30-5.70) Hemoglobin 8.6g/dL (13.0-17.5) Hematocrit 26.3% (39.0-53.0) Mean Corpuscular Volume 97fL (79-100) Mean Corpuscular Hemoglobin 32pg (25-35) Mean Corpuscular Hemoglobin Concent 33g/dL (31-37) Red Cell Distribution Width 17.5% (11.5-14.5) Platelet Count 251x10^3/uL (140-400) Neutrophils (%) (Auto) 76% (31-73) Lymphocytes (%) (Auto) 12% (24-48) Monocytes (%) (Auto) 8% (0-9) Eosinophils (%) (Auto) 4% (0-3) Basophils (%) (Auto) 1% (0-3) Neutrophils # (Auto) 6.7x10^3uL (1.8-7.7) Lymphocytes # (Auto) 1.1x10^3/uL (1.0-4.8) Monocytes # (Auto) 0.7x10^3/uL (0.0-1.1) Eosinophils # (Auto) 0.3x10^3/uL (0.0-0.7) Basophils # (Auto) 0.1x10^3/uL (0.0-0.2) Sodium Level 134mmol/L (136-145) Potassium Level 5.0mmol/L (3.5-5.1) Chloride Level 93mmol/L (98-107) Carbon Dioxide Level 22mmol/L (21-32) Anion Gap 19 (6-14) Blood Urea Nitrogen 59mg/dL (8-26) Creatinine 4.8mg/dL (0.7-1.3) Estimated GFR (Cockcroft-Gault) 11.6 Glucose Level 84mg/dL (70-99) Calcium Level 8.9mg/dL (8.5-10.1) Test 09/21/16 07:31 Glucose (Fingerstick) 82mg/dL (70-99) Objective Assessment Fever. 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 Pancreatic lesions on CT Plan Plan of Care po Augmentin (adjusted for renal function) Continue fluconazole MARGARET RODRIGUES MD September 21, 2016 11:19
--- NOTE | 2016-09-21 12:05 | PDOC ---
Dialysis Progress Note Dialysis Note Dialysis Note Seen on Hemodialysis, tolerating treatment Well Vitals on Hemodialysis at time of my visit: 143/74 106 afeb General Appearance: Awsleep Neck: No JVD or JVP Chest: CTA Oscar Heart: S1 S2 - occ tachy Abdomen - Soft NTND Extremities - No Edema ESRD: Dialysis as below F 180 NR 3.5 Hrs 2 K 2.5 Ca 140 Na 35 HC03 Qb 350 + Qd 500+ Heparin 0 Units Uf 2 Kgs or to dry weight as tolerated May give 25-50 gms of 25% Albumin if needed to maintain Hemodynamic stability Treatment plan reviewed and discussed with round cutter operator Vitals Vital Signs Vital Signs Date Time Temp Pulse Resp B/P Pulse Ox O2 Delivery O2 Flow Rate FiO2 09/21/16 09:00 Nasal Cannula 2.0 09/21/16 07:05 97.5 95 20 118/49 94 97.5 Labs Last Labs Laboratory Tests Test 09/19/16 16:32 09/19/16 20:41 09/20/16 06:35 09/20/16 07:22 Glucose (Fingerstick) 130mg/dL (70-99) 132mg/dL (70-99) 143mg/dL (70-99) White Blood Count 8.8x10^3/uL (4.0-11.0) Red Blood Count 2.58x10^6/uL (4.30-5.70) Hemoglobin 8.2g/dL (13.0-17.5) Hematocrit 25.0% (39.0-53.0) Mean Corpuscular Volume 97fL (79-100) Mean Corpuscular Hemoglobin 32pg (25-35) Mean Corpuscular Hemoglobin Concent 33g/dL (31-37) Red Cell Distribution Width 17.3% (11.5-14.5) Platelet Count 227x10^3/uL (140-400) Neutrophils (%) (Auto) 79% (31-73) Lymphocytes (%) (Auto) 10% (24-48) Monocytes (%) (Auto) 8% (0-9) Eosinophils (%) (Auto) 3% (0-3) Basophils (%) (Auto) 1% (0-3) Neutrophils # (Auto) 6.9x10^3uL (1.8-7.7) Lymphocytes # (Auto) 0.9x10^3/uL (1.0-4.8) Monocytes # (Auto) 0.7x10^3/uL (0.0-1.1) Eosinophils # (Auto) 0.2x10^3/uL (0.0-0.7) Basophils # (Auto) 0.1x10^3/uL (0.0-0.2) Sodium Level 138mmol/L (136-145) Potassium Level 4.3mmol/L (3.5-5.1) Chloride Level 95mmol/L (98-107) Carbon Dioxide Level 23mmol/L (21-32) Anion Gap 20 (6-14) Blood Urea Nitrogen 46mg/dL (8-26) Creatinine 4.0mg/dL (0.7-1.3) Estimated GFR (Cockcroft-Gault) 14.3 Glucose Level 153mg/dL (70-99) Calcium Level 8.7mg/dL (8.5-10.1) Test 09/20/16 12:02 09/20/16 17:00 09/20/16 20:45 09/21/16 05:45 Glucose (Fingerstick) 198mg/dL (70-99) 233mg/dL (70-99) 202mg/dL (70-99) White Blood Count 8.8x10^3/uL (4.0-11.0) Red Blood Count 2.73x10^6/uL (4.30-5.70) Hemoglobin 8.6g/dL (13.0-17.5) Hematocrit 26.3% (39.0-53.0) Mean Corpuscular Volume 97fL (79-100) Mean Corpuscular Hemoglobin 32pg (25-35) Mean Corpuscular Hemoglobin Concent 33g/dL (31-37) Red Cell Distribution Width 17.5% (11.5-14.5) Platelet Count 251x10^3/uL (140-400) Neutrophils (%) (Auto) 76% (31-73) Lymphocytes (%) (Auto) 12% (24-48) Monocytes (%) (Auto) 8% (0-9) Eosinophils (%) (Auto) 4% (0-3) Basophils (%) (Auto) 1% (0-3) Neutrophils # (Auto) 6.7x10^3uL (1.8-7.7) Lymphocytes # (Auto) 1.1x10^3/uL (1.0-4.8) Monocytes # (Auto) 0.7x10^3/uL (0.0-1.1) Eosinophils # (Auto) 0.3x10^3/uL (0.0-0.7) Basophils # (Auto) 0.1x10^3/uL (0.0-0.2) Sodium Level 134mmol/L (136-145) Potassium Level 5.0mmol/L (3.5-5.1) Chloride Level 93mmol/L (98-107) Carbon Dioxide Level 22mmol/L (21-32) Anion Gap 19 (6-14) Blood Urea Nitrogen 59mg/dL (8-26) Creatinine 4.8mg/dL (0.7-1.3) Estimated GFR (Cockcroft-Gault) 11.6 Glucose Level 84mg/dL (70-99) Calcium Level 8.9mg/dL (8.5-10.1) Test 09/21/16 07:31 09/21/16 11:58 Glucose (Fingerstick) 82mg/dL (70-99) 86mg/dL (70-99) Laboratory Tests Test 09/20/16 17:00 09/20/16 20:45 09/21/16 05:45 09/21/16 07:31 Glucose (Fingerstick) 233mg/dL (70-99) 202mg/dL (70-99) 82mg/dL (70-99) White Blood Count 8.8x10^3/uL (4.0-11.0) Red Blood Count 2.73x10^6/uL (4.30-5.70) Hemoglobin 8.6g/dL (13.0-17.5) Hematocrit 26.3% (39.0-53.0) Mean Corpuscular Volume 97fL (79-100) Mean Corpuscular Hemoglobin 32pg (25-35) Mean Corpuscular Hemoglobin Concent 33g/dL (31-37) Red Cell Distribution Width 17.5% (11.5-14.5) Platelet Count 251x10^3/uL (140-400) Neutrophils (%) (Auto) 76% (31-73) Lymphocytes (%) (Auto) 12% (24-48) Monocytes (%) (Auto) 8% (0-9) Eosinophils (%) (Auto) 4% (0-3) Basophils (%) (Auto) 1% (0-3) Neutrophils # (Auto) 6.7x10^3uL (1.8-7.7) Lymphocytes # (Auto) 1.1x10^3/uL (1.0-4.8) Monocytes # (Auto) 0.7x10^3/uL (0.0-1.1) Eosinophils # (Auto) 0.3x10^3/uL (0.0-0.7) Basophils # (Auto) 0.1x10^3/uL (0.0-0.2) Sodium Level 134mmol/L (136-145) Potassium Level 5.0mmol/L (3.5-5.1) Chloride Level 93mmol/L (98-107) Carbon Dioxide Level 22mmol/L (21-32) Anion Gap 19 (6-14) Blood Urea Nitrogen 59mg/dL (8-26) Creatinine 4.8mg/dL (0.7-1.3) Estimated GFR (Cockcroft-Gault) 11.6 Glucose Level 84mg/dL (70-99) Calcium Level 8.9mg/dL (8.5-10.1) Test 09/21/16 11:58 Glucose (Fingerstick) 86mg/dL (70-99) Assessment Assessment Problems Medical Problems: (1) Open wound of scrotum Status: Acute Problems: Plan Plan of Care Problems Medical Problems: (1) Open wound of scrotum Status: Acute FILIPPO RODRIGUES MD September 21, 2016 12:05
--- NOTE | 2016-09-21 13:24 | PDOC ---
PROGRESS NOTES Chief Complaint Chief Complaint cc: Scrotal pain -Cellulitis of the scrotum -CAD -CHF -[place] -Peripheral neuropathy -Tonsillectomy -Cataract extraction -CABG -Hyperlipidemia -Atrial fibrillation -Hypertension -Colonic polyps -GERD -Dialysis -DM -Parathyroid disease -Smoking -Anemia -Skin cancer -Chronic renal failure plan: fu with id, on augmentin fu with renal, on HD now, was on PD fu with uro, post i and d, penis wound still looks back, cont wound care SW fu , need to dc to LTAC LOW PO intake, on PPN PTOT History of Present Illness History of Present Illness Patient seen and evaluated at the bedside. No acute events overnight. Per , patient's pain is managed with the medications. Nursing noted patient's breathing has been swallow this AM, yet he is saturating 100% without any signs of respiratory distress. Dressings in place. d/w nurse about plan of care. Vitals Vitals Vital Signs Date Time Temp Pulse Resp B/P Pulse Ox O2 Delivery O2 Flow Rate FiO2 09/21/16 09:00 Nasal Cannula 2.0 09/21/16 07:05 97.5 95 20 118/49 94 97.5 Physical Exam General: Cooperative, No acute distress, Other (somnolent, with swallow breathing. responds to voice, but limited in following commands. ) Heart: Regular rate, Normal S1, Normal S2, No murmurs Lungs: Clear, Other (swallow breathing with prolonged time between inspirations , not apneic. Negative chest retractions and/or other accessory muscle use. ) Abdomen: Soft, No tenderness Extremities: No clubbing, No edema Skin: No rashes, No breakdown, Other (dressing intact clean, dry, without saturation. ) Labs LABS Laboratory Tests Test 09/20/16 17:00 09/20/16 20:45 09/21/16 05:45 09/21/16 07:31 Glucose (Fingerstick) 233mg/dL (70-99) 202mg/dL (70-99) 82mg/dL (70-99) White Blood Count 8.8x10^3/uL (4.0-11.0) Red Blood Count 2.73x10^6/uL (4.30-5.70) Hemoglobin 8.6g/dL (13.0-17.5) Hematocrit 26.3% (39.0-53.0) Mean Corpuscular Volume 97fL (79-100) Mean Corpuscular Hemoglobin 32pg (25-35) Mean Corpuscular Hemoglobin Concent 33g/dL (31-37) Red Cell Distribution Width 17.5% (11.5-14.5) Platelet Count 251x10^3/uL (140-400) Neutrophils (%) (Auto) 76% (31-73) Lymphocytes (%) (Auto) 12% (24-48) Monocytes (%) (Auto) 8% (0-9) Eosinophils (%) (Auto) 4% (0-3) Basophils (%) (Auto) 1% (0-3) Neutrophils # (Auto) 6.7x10^3uL (1.8-7.7) Lymphocytes # (Auto) 1.1x10^3/uL (1.0-4.8) Monocytes # (Auto) 0.7x10^3/uL (0.0-1.1) Eosinophils # (Auto) 0.3x10^3/uL (0.0-0.7) Basophils # (Auto) 0.1x10^3/uL (0.0-0.2) Sodium Level 134mmol/L (136-145) Potassium Level 5.0mmol/L (3.5-5.1) Chloride Level 93mmol/L (98-107) Carbon Dioxide Level 22mmol/L (21-32) Anion Gap 19 (6-14) Blood Urea Nitrogen 59mg/dL (8-26) Creatinine 4.8mg/dL (0.7-1.3) Estimated GFR (Cockcroft-Gault) 11.6 Glucose Level 84mg/dL (70-99) Calcium Level 8.9mg/dL (8.5-10.1) Test 09/21/16 11:58 Glucose (Fingerstick) 86mg/dL (70-99) Review of Systems Review of Systems General: Alert, Oriented X3, Cooperative, No acute distress Heart: Regular rate, Normal S1, Normal S2, No murmurs Lungs: Clear, Other (negative chest retractions and/or other accessory muscle use. ) Abdomen: Normal bowel sounds, Soft, No tenderness, Other Extremities: No cyanosis, No edema Skin: No rashes, Other (full perineal exam deferred. packing in place. dressing not saturated, clean, dry, and intact. ) Assessment and Plan Assessmemt and Plan Problems Medical Problems: (1) Open wound of scrotum Status: Acute Problems: Comment Review of Relevant I have reviewed the following items robert (where applicable) has been applied. Labs Laboratory Tests Test 09/19/16 16:32 09/19/16 20:41 09/20/16 06:35 09/20/16 07:22 Glucose (Fingerstick) 130mg/dL (70-99) 132mg/dL (70-99) 143mg/dL (70-99) White Blood Count 8.8x10^3/uL (4.0-11.0) Red Blood Count 2.58x10^6/uL (4.30-5.70) Hemoglobin 8.2g/dL (13.0-17.5) Hematocrit 25.0% (39.0-53.0) Mean Corpuscular Volume 97fL (79-100) Mean Corpuscular Hemoglobin 32pg (25-35) Mean Corpuscular Hemoglobin Concent 33g/dL (31-37) Red Cell Distribution Width 17.3% (11.5-14.5) Platelet Count 227x10^3/uL (140-400) Neutrophils (%) (Auto) 79% (31-73) Lymphocytes (%) (Auto) 10% (24-48) Monocytes (%) (Auto) 8% (0-9) Eosinophils (%) (Auto) 3% (0-3) Basophils (%) (Auto) 1% (0-3) Neutrophils # (Auto) 6.9x10^3uL (1.8-7.7) Lymphocytes # (Auto) 0.9x10^3/uL (1.0-4.8) Monocytes # (Auto) 0.7x10^3/uL (0.0-1.1) Eosinophils # (Auto) 0.2x10^3/uL (0.0-0.7) Basophils # (Auto) 0.1x10^3/uL (0.0-0.2) Sodium Level 138mmol/L (136-145) Potassium Level 4.3mmol/L (3.5-5.1) Chloride Level 95mmol/L (98-107) Carbon Dioxide Level 23mmol/L (21-32) Anion Gap 20 (6-14) Blood Urea Nitrogen 46mg/dL (8-26) Creatinine 4.0mg/dL (0.7-1.3) Estimated GFR (Cockcroft-Gault) 14.3 Glucose Level 153mg/dL (70-99) Calcium Level 8.7mg/dL (8.5-10.1) Test 09/20/16 12:02 09/20/16 17:00 09/20/16 20:45 09/21/16 05:45 Glucose (Fingerstick) 198mg/dL (70-99) 233mg/dL (70-99) 202mg/dL (70-99) White Blood Count 8.8x10^3/uL (4.0-11.0) Red Blood Count 2.73x10^6/uL (4.30-5.70) Hemoglobin 8.6g/dL (13.0-17.5) Hematocrit 26.3% (39.0-53.0) Mean Corpuscular Volume 97fL (79-100) Mean Corpuscular Hemoglobin 32pg (25-35) Mean Corpuscular Hemoglobin Concent 33g/dL (31-37) Red Cell Distribution Width 17.5% (11.5-14.5) Platelet Count 251x10^3/uL (140-400) Neutrophils (%) (Auto) 76% (31-73) Lymphocytes (%) (Auto) 12% (24-48) Monocytes (%) (Auto) 8% (0-9) Eosinophils (%) (Auto) 4% (0-3) Basophils (%) (Auto) 1% (0-3) Neutrophils # (Auto) 6.7x10^3uL (1.8-7.7) Lymphocytes # (Auto) 1.1x10^3/uL (1.0-4.8) Monocytes # (Auto) 0.7x10^3/uL (0.0-1.1) Eosinophils # (Auto) 0.3x10^3/uL (0.0-0.7) Basophils # (Auto) 0.1x10^3/uL (0.0-0.2) Sodium Level 134mmol/L (136-145) Potassium Level 5.0mmol/L (3.5-5.1) Chloride Level 93mmol/L (98-107) Carbon Dioxide Level 22mmol/L (21-32) Anion Gap 19 (6-14) Blood Urea Nitrogen 59mg/dL (8-26) Creatinine 4.8mg/dL (0.7-1.3) Estimated GFR (Cockcroft-Gault) 11.6 Glucose Level 84mg/dL (70-99) Calcium Level 8.9mg/dL (8.5-10.1) Test 09/21/16 07:31 09/21/16 11:58 Glucose (Fingerstick) 82mg/dL (70-99) 86mg/dL (70-99) Laboratory Tests Test 09/20/16 17:00 09/20/16 20:45 09/21/16 05:45 09/21/16 07:31 Glucose (Fingerstick) 233mg/dL (70-99) 202mg/dL (70-99) 82mg/dL (70-99) White Blood Count 8.8x10^3/uL (4.0-11.0) Red Blood Count 2.73x10^6/uL (4.30-5.70) Hemoglobin 8.6g/dL (13.0-17.5) Hematocrit 26.3% (39.0-53.0) Mean Corpuscular Volume 97fL (79-100) Mean Corpuscular Hemoglobin 32pg (25-35) Mean Corpuscular Hemoglobin Concent 33g/dL (31-37) Red Cell Distribution Width 17.5% (11.5-14.5) Platelet Count 251x10^3/uL (140-400) Neutrophils (%) (Auto) 76% (31-73) Lymphocytes (%) (Auto) 12% (24-48) Monocytes (%) (Auto) 8% (0-9) Eosinophils (%) (Auto) 4% (0-3) Basophils (%) (Auto) 1% (0-3) Neutrophils # (Auto) 6.7x10^3uL (1.8-7.7) Lymphocytes # (Auto) 1.1x10^3/uL (1.0-4.8) Monocytes # (Auto) 0.7x10^3/uL (0.0-1.1) Eosinophils # (Auto) 0.3x10^3/uL (0.0-0.7) Basophils # (Auto) 0.1x10^3/uL (0.0-0.2) Sodium Level 134mmol/L (136-145) Potassium Level 5.0mmol/L (3.5-5.1) Chloride Level 93mmol/L (98-107) Carbon Dioxide Level 22mmol/L (21-32) Anion Gap 19 (6-14) Blood Urea Nitrogen 59mg/dL (8-26) Creatinine 4.8mg/dL (0.7-1.3) Estimated GFR (Cockcroft-Gault) 11.6 Glucose Level 84mg/dL (70-99) Calcium Level 8.9mg/dL (8.5-10.1) Test 09/21/16 11:58 Glucose (Fingerstick) 86mg/dL (70-99) Microbiology 09/07/16 Blood Culture - Final, Complete NO GROWTH AFTER 5 DAYS 09/17/16 Anaerobic/Aerobic Culture - Preliminary, Resulted 09/17/16 Anaerobic Culture Result 1 (RONEN) - Preliminary, Resulted 09/17/16 Aerobic Culture - Final, Resulted 09/17/16 Aerobic Culture Result 1 (RONEN) - Final, Resulted Medications Current Medications Meropenem/Sodium Chloride (Merrem/Iv Sodium Chloride 0.9% 100ml) 100 ml @ 200 mls/hr Q8HRS IV ; Start 09/07/16 at 22:00; Status UNV Vancomycin HCl 1 each 1 each PRN DAILY PRN MC SEE COMMENTS Last administered on 09/19/16 11:42; Start 09/07/16 at 20:45; Stop 09/20/16 at 11:56; Status DC Sodium Chloride (Iv Sodium Chloride 0.9% 500ml Bag) 500 ml @ 500 mls/hr 1X ONCE IV Last administered on 09/07/16 21:04; Start 09/07/16 at 21:00; Stop at 21:59; Status DC Hydromorphone HCl 1 mg 1 mg 1X ONCE IV Last administered on 09/07/16 20:59; Start 09/07/16 at 21:00; Stop 09/07/16 at 21:01; Status DC Meropenem 500 mg/ Sodium Chloride 50 ml @ 100 mls/hr QHS IV Last administered on 09/07/16 21:05; Start 09/07/16 at 21:00; Stop 09/08/16 at 07:59; Status DC Vancomycin HCl/ Sodium Chloride (Iv Sodium Chloride 0.9% 500ml Bag) 500 ml @ 250 mls/hr 1X ONCE IV Last administered on 09/07/16 22:07; Start 09/07/16 at 21:30; Stop 09/07/16 at 23:29; Status DC Ondansetron HCl (Zofran) 4 mg PRN Q8HRS PRN IV NAUSEA/VOMITING Last administered on 09/07/16 22:43; Start 09/07/16 at 22:00; Stop 09/08/16 at 21:59 ; Status DC Morphine Sulfate 4 mg 4 mg PRN Q2HR PRN IV SEVERE PAIN Last administered on 21:12; Start 09/07/16 at 22:00; Stop 09/08/16 at 21:59; Status DC Sodium Chloride (Iv Sodium Chloride 0.9% 1000ml Bag) 1,000 ml @ 75 mls/hr [id number] IV Last administered on 09/08/16 12:56; Start 09/07/16 at 21:52; Stop 09/08/16 at 21:51; Status DC Insulin Aspart (Novolog) 0-7 UNITS TIDWMEALS SQ ; Start 09/08/16 at 08:00; Stop 09/08/16 at 08:00; Status DC Dextrose (Dextrose 50%-Water Syringe) 12.5 gm PRN Q15MIN PRN IV SEE COMMENTS Last administered on 09/08/16 21:03; Start 09/07/16 at 22:30 Allopurinol (Zyloprim) 100 mg DAILY PO Last administered on 09/21/16 07:52; Start 09/08/16 at 09:00 Apixaban (Eliquis) 2.5 mg DAILY PO Last administered on 09/08/16 07:59; Start 09/08/16 at 09:00; Stop 09/08/16 at 10:43; Status DC Atorvastatin Calcium (Lipitor) 40 mg QHS PO Last administered on 09/20/16 20: 29; Start 09/08/16 at 21:00 Carvedilol (Coreg) 3.125 mg BIDWMEALS PO Last administered on 09/20/16 17:07; Start 09/08/16 at 08:00 Cinacalcet (Sensipar) 30 mg DAILY PO Last administered on 09/16/16 11:40; Start 09/08/16 at 09:00; Stop 09/17/16 at 10:47; Status DC Glimepiride (Amaryl) 4 mg DAILY PO Last administered on 09/08/16 07:59; Start 09/08/16 at 09:00; Stop 09/09/16 at 13:46; Status DC Acetaminophen/ Hydrocodone Bitart (Lortab 5/325) 1 tab PRN Q6HRS PRN PO SEVERE PAIN Last administered on 09/09/16 06:16; Start 09/07/16 at 22:30; Stop at 14:14; Status DC Polyethylene Glycol (miraLAX PACKET) 17 gm PRN DAILY PRN PO CONSTIPATION; Start 09/07/16 at 22:30 Sevelamer Carbonate (Renvela) 2.4 gm TIDWMEALS PO Last administered on 07:59; Start 09/08/16 at 08:00; Stop 09/08/16 at 12:01; Status DC Vitamin A/Vitamin D (Vitamin A & D Ointment) 1 katie TID TP Last administered on 09/16/16 20:37; Start 09/08/16 at 09:00; Stop 09/18/16 at 08:05; Status DC Docusate Sodium (Colace) 100 mg PRN DAILY PRN PO CONSTIPATION; Start 09/07/16 at 22:45 Docusate Sodium (Colace) 100 mg DAILY PO Last administered on 09/21/16 07:52; Start 09/08/16 at 09:00 Potassium Chloride (Klor-Con) 20 meq 1X ONCE PO Last administered on 01:38; Start 09/07/16 at 23:00; Stop 09/07/16 at 23:01; Status DC Insulin Aspart (Novolog) 0-7 UNITS QIDACHS SQ Last administered on 09/20/16 17 :13; Start 09/07/16 at 22:45 Info (Anti-Coagulation Monitoring By Pharmacy) 1 each PRN DAILY PRN MC SEE COMMENTS Last administered on 09/21/16 10:59; Start 09/07/16 at 23:45 Vancomycin HCl 1 each 1 each 1X ONCE MC ; Start 09/11/16 at 21:30; Stop at 21:30; Status DC Vancomycin HCl 1.5 gm/Sodium Chloride 500 ml @ 250 mls/hr Q48H IV ; Start 09/09 at 22:00; Stop 09/09/16 at 22:00; Status DC Piperacillin Sod/ Tazobactam Sod/ Sodium Chloride (Zosyn/Iv Sodium Chloride 0.9 % 50ml) 50 ml @ 100 mls/hr Q8HRS IV Last administered on 09/10/16 06:11; Start 09/08/16 at 08:30; Stop 09/10/16 at 09:00; Status DC Fluconazole (Diflucan) 100 mg DAILY PO Last administered on 09/21/16 07:51; Start 09/08/16 at 09:00 Darbepoetin Lasha (Aranesp) 60 mcg [id number] SQ Last administered on 09/15/16 21 :23; Start 09/08/16 at 21:00 Apixaban (Eliquis) 2.5 mg BID PO Last administered on 09/21/16 07:51; Start at 21:00 Vancomycin HCl 1 each 1X ONCE MC Last administered on 09/09/16 06:00; Start 09/09/16 at 06:00; Stop 09/09/16 at 06:01; Status DC Sevelamer Carbonate (Renvela) 2,400 mg TIDWMEALS PO Last administered on 08:43; Start 09/08/16 at 12:00 Insulin Aspart (Novolog) 8 units TIDAC SQ Last administered on 09/10/16 08:41 ; Start 09/08/16 at 12:00; Stop 09/10/16 at 10:17; Status DC Lorazepam (Ativan) 0.5 mg PRN Q6HRS PRN PO ANXIETY / AGITATION Last administered on 09/19/16 11:23; Start 09/08/16 at 13:00 Fentanyl Citrate (Fentanyl 2ml Vial) 25 mcg PRN Q5MIN PRN IV MILD PAIN; Start 09/09/16 at 07:00; Stop 09/10/16 at 06:59; Status DC Fentanyl Citrate (Fentanyl 2ml Vial) 50 mcg PRN Q5MIN PRN IV MODERATE PAIN; Start 09/09/16 at 07:00; Stop 09/10/16 at 06:59; Status DC Morphine Sulfate 1 mg PRN Q10MIN PRN IV SEVERE PAIN; Start 09/09/16 at 07:00; Stop 09/10/16 at 06:59; Status DC Lidocaine HCl 2 ml PRN 1X PRN ID PRIOR TO IV START; Start 09/09/16 at 07:00; Stop 09/10/16 at 06:59; Status DC Hydromorphone HCl (Dilaudid) 0.5 mg PRN Q10MIN PRN IV SEV PAIN, Second choice; Start 09/09/16 at 07:00; Stop 09/10/16 at 06:59; Status DC Prochlorperazine Edisylate 5 mg 5 mg PACU PRN PRN IV NAUSEA, MRX1; Start at 07:00; Stop 09/10/16 at 06:59; Status DC Sodium Chloride (Iv Sodium Chloride 0.9% 1000ml Bag) 1,000 ml @ 0 mls/hr Q0M IV ; Start 09/09/16 at 12:00; Stop 09/10/16 at 10:51; Status DC Morphine Sulfate 4 mg PRN Q2HR PRN IV SEVERE PAIN Last administered on t 10:43; Start 09/09/16 at 01:00; Stop 09/11/16 at 15:23; Status DC Lidocaine HCl 30 ml STK-MED ONCE .ROUTE ; Start 09/09/16 at 07:12; Stop at 07:13; Status Cancel Cellulose 1 each STK-MED ONCE .ROUTE ; Start 09/09/16 at 07:12; Stop 09/09/16 at 07:13; Status Cancel Papaverine HCl 60 mg 60 mg STK-MED ONCE .ROUTE ; Start 09/09/16 at 07:13; Stop 09/09/16 at 07:14; Status Cancel Sodium Chloride 1,000 ml @ 1,000 mls/hr Q1H PRN IV hypotension; Start 09/09/16 at 07:30; Stop 09/09/16 at 13:29; Status DC Albumin Human (Albuminar) 200 ml @ 200 mls/hr 1X PRN PRN IV Hypotension Last administered on 09/09/16t 09:37; Start 09/09/16 at 07:30; Stop 09/09/16 at 13:29 ; Status DC Acetaminophen (Tylenol) 500 mg 1X PRN PRN PO MILD PAIN / TEMP; Start 09/09/16 at 07:30; Stop 09/10/16 at 07:29; Status DC Diphenhydramine HCl (Benadryl) 25 mg 1X PRN PRN IV ITCHING; Start 09/09/16 at 07:30; Stop 09/10/16 at 07:29; Status DC Diphenhydramine HCl (Benadryl) 25 mg 1X PRN PRN IV ITCHING; Start 09/09/16 at 07:30; Stop 09/10/16 at 07:29; Status DC Labetalol HCl (Normodyne) 10 mg PRN Q1HR PRN IVP SBP > 180; Start 09/09/16 at 07:30; Stop 09/10/16 at 07:29; Status DC Clonidine HCl 0.1 mg 0.1 mg 1X PRN PRN PO SBP > 180; Start 09/09/16 at 07:30; Stop 09/10/16 at 07:29; Status DC Sodium Chloride (Iv Sodium Chloride 0.9% 1000ml Bag) 1,000 ml @ 400 mls/hr Q2H30M PRN IV PATENCY; Start 09/09/16 at 07:30; Stop 09/09/16 at 19:29; Status DC Info 1 each 1 each PRN DAILY PRN MC SEE COMMENTS; Start 09/09/16 at 07:30; Stop 09/14/16 at 10:15; Status DC Heparin Sodium (Porcine) 5000 unit/Sodium Chloride 505 ml @ 505 mls/hr 1X PERIOP ONCE IRR ; Start 09/09/16 at 09:00; Stop 09/09/16 at 09:59; Status DC Cefazolin Sodium 1 gm/Sodium Chloride 500 ml @ 500 mls/hr 1X PERIOP ONCE IRR ; Start 09/09/16 at 09:00; Stop 09/09/16 at 09:59; Status DC Cefazolin Sodium (Ancef 1gm Ivpb For Omni) 0 ml @ As Directed STK-MED ONCE IV ; Start 09/09/16 at 13:23; Stop 09/09/16 at 13:24; Status DC Acetaminophen/ Hydrocodone Bitart (Lortab 5/325) 1 tab PRN Q4HRS PRN PO PAIN; Start 09/09/16 at 14:15; Stop 09/11/16 at 11:52; Status DC Acetaminophen/ Hydrocodone Bitart (Lortab 5/325) 2 tab PRN Q4HRS PRN PO PAIN Last administered on 09/11/16t 04:49; Start 09/09/16 at 14:15; Stop 09/11/16 at 11:52; Status DC Midazolam HCl (Versed) 2 mg STK-MED ONCE .ROUTE ; Start 09/09/16 at 14:06; Stop 09/09/16 at 14:07; Status DC Fentanyl Citrate 100 mcg 100 mcg STK-MED ONCE .ROUTE ; Start 09/09/16 at 14:06; Stop 09/09/16 at 14:07; Status DC Vancomycin HCl/ Sodium Chloride (Iv Sodium Chloride 0.9% 100ml) 100 ml @ 100 mls/hr QMWF IV Last administered on 09/09/16 17:36; Start 09/09/16 at 16:00; Stop 09/11/16 at 15:32; Status DC Lidocaine HCl 20 ml STK-MED ONCE .ROUTE ; Start 09/09/16 at 14:11; Stop at 14:12; Status DC Lidocaine HCl 20 ml STK-MED ONCE .ROUTE ; Start 09/09/16 at 14:11; Stop at 14:12; Status Cancel Cellulose 1 each STK-MED ONCE .ROUTE ; Start 09/09/16 at 14:12; Stop 09/09/16 at 14:13; Status Cancel Papaverine HCl 60 mg 60 mg STK-MED ONCE .ROUTE ; Start 09/09/16 at 14:12; Stop 09/09/16 at 14:13; Status DC Propofol (Diprivan) 20 ml @ As Directed STK-MED ONCE IV ; Start 09/09/16 at 14: 51; Stop 09/09/16 at 14:52; Status DC Amoxicillin/ Clavulanate Potassium (Augmentin 500/ 125mg) 1 tab DAILY PO Last administered on 09/10/16 10:43; Start 09/10/16 at 10:00; Stop 09/11/16 at 10:47 ; Status DC Insulin Aspart (Novolog) 5 units TIDAC SQ Last administered on 09/20/16 17:14 ; Start 09/10/16 at 11:30 Insulin Detemir (Levemir) 10 units QHS SQ Last administered on 09/10/16 21:46 ; Start 09/10/16 at 21:00; Stop 09/11/16 at 10:42; Status DC Sodium Thiosulfate 25 gm 25 gm 3X/WEEK IV ; Start 09/11/16 at 09:00; Status UNV Magnesium Sulfate/ Dextrose 50 ml @ 25 mls/hr PRN DAILY PRN IV for Mag < 1.7 on am labs; Start 09/10/16 at 10:45 Sodium Thiosulfate 25 gm/ Sodium Chloride 100 ml @ 100 mls/hr 3X/WEEK@16 IV Last administered on 09/18/16 15:11; Start 09/11/16 at 16:00; Stop 09/18/16 at 18:00; Status DC Amino Acids/ Glycerin/ Electrolytes (Procalamine) 1,000 ml @ 80 mls/hr [id number] IV Last administered on 09/21/16 05:51; Start 09/10/16 at 11:30 Fentanyl Citrate (Fentanyl 2ml Vial) 25 mcg PRN Q2HR PRN IV PAIN Last administered on 09/13/16 17:02; Start 09/10/16 at 13:00; Stop 09/13/16 at 18:42 ; Status DC Albuterol Sulfate (Ventolin Neb Soln) 2.5 mg PRN Q4HRS PRN NEB SHORTNESS OF BREATH Last administered on 09/12/16 08:56; Start 09/10/16 at 13:30 Tramadol HCl (Ultram) 50 mg PRN Q6HRS PRN PO MILD PAIN Last administered on 08:39; Start 09/10/16 at 13:45 Ondansetron HCl (Zofran) 4 mg PRN Q6HRS PRN IV NAUSEA/VOMITING Last administered on 09/11/16 08:39; Start 09/10/16 at 19:15 Calcium Carbonate/ Glycine (Tums) 500 mg TID PRN PO INDIGESTION; Start at 19:15; Stop 09/17/16 at 10:47; Status DC Pantoprazole Sodium (Protonix) 40 mg DAILYAC PO Last administered on 09/21/16 07:51; Start 09/10/16 at 20:00 Prochlorperazine Edisylate (Compazine) 10 mg PRN Q6HRS PRN IV NAUSEA/VOMITING Last administered on 09/11/16 10:49; Start 09/11/16 at 10:30 Insulin Detemir (Levemir) 15 units QHS SQ Last administered on 09/20/16 20:54 ; Start 09/11/16 at 21:00 Metoclopramide HCl 5 mg 5 mg PRN Q6HRS PRN IV NAUSEA/VOMITING Last administered on 09/11/16 20:55; Start 09/11/16 at 10:45 Piperacillin Sod/ Tazobactam Sod/ Sodium Chloride (Zosyn/Iv Sodium Chloride 0.9 % 50ml) 50 ml @ 100 mls/hr Q8HRS IV Last administered on 09/20/16 05:49; Start 09/11/16 at 14:00; Stop 09/20/16 at 11:56; Status DC Oxycodone/ Acetaminophen 1 tab 1 tab PRN Q4HRS PRN PO MODERATE PAIN Last administered on 09/21/16 07:52; Start 09/11/16 at 12:00 Sodium Thiosulfate/ Sodium Chloride (Sodium Thiosulfate/Iv Sodium Chloride 0.9% 100ml) 100 ml @ 100 mls/hr 1X ONCE IV Last administered on 09/12/16 16:00; Start 09/12/16 at 16:00; Stop 09/12/16 at 16:59; Status DC Lorazepam (Ativan) 1 mg 1X ONCE IV ; Start 09/11/16 at 18:00; Stop 09/11/16 at 18:01; Status DC Haloperidol Lactate (Haldol) 2 mg PRN Q24HRS PRN IVP AGITATION Last administered on 09/14/16 11:04; Start 09/11/16 at 18:00; Stop 09/14/16 at 15:06 ; Status DC Lorazepam 1 mg 1 mg 1X ONCE IV Last administered on 09/12/16 03:14; Start at 01:00; Stop 09/12/16 at 01:01; Status DC Sodium Chloride (Iv Sodium Chloride 0.9% 1000ml Bag) 1,000 ml @ 1,000 mls/hr Q1H PRN IV hypotension; Start 09/12/16 at 08:00; Stop 09/12/16 at 13:59; Status DC Diphenhydramine HCl 50 mg 50 mg 1X PRN PRN IV ITCHING Last administered on 09/12 09:06; Start 09/12/16 at 08:45; Stop 09/12/16 at 16:00; Status DC Sodium Chloride (Iv Sodium Chloride 0.9% 1000ml Bag) 1,000 ml @ 400 mls/hr Q2H30M PRN IV PATENCY; Start 09/12/16 at 08:00; Stop 09/12/16 at 19:59; Status DC Info (PHARMACY MONITORING -- do not chart) 1 each PRN DAILY PRN MC SEE COMMENTS ; Start 09/12/16 at 08:45; Status UNV Lorazepam 0.5 mg 0.5 mg PRN Q6HRS PRN IV ANXIETY / AGITATION Last administered on 09/14/16 23:37; Start 09/12/16 at 11:00 Vancomycin HCl/ Sodium Chloride (Iv Sodium Chloride 0.9% 100ml) 100 ml @ 100 mls/hr 1X ONCE IV Last administered on 09/12/16 14:40; Start 09/12/16 at 13: 00; Stop 09/12/16 at 13:59; Status DC Fentanyl Citrate (Fentanyl 2ml Vial) 50 mcg PRN Q2HR PRN IV PAIN Last administered on 09/17/16 13:12; Start 09/13/16 at 18:45 Morphine Sulfate 1 mg PRN Q2HR PRN IV PAIN Last administered on 09/15/16 08:51 ; Start 09/13/16 at 18:45; Stop 09/15/16 at 10:39; Status DC Lidocaine (Lidoderm) 1 patch DAILY TD ; Start 09/13/16 at 19:00; Stop 09/13/16 at 19:16; Status DC Lidocaine HCl 1 katie 1 katie TID TP Last administered on 09/16/16 20:37; Start at 21:00; Stop 09/18/16 at 08:05; Status DC Sodium Chloride (Iv Sodium Chloride 0.9% 1000ml Bag) 1,000 ml @ 1,000 mls/hr Q1H PRN IV hypotension; Start 09/14/16 at 10:06; Stop 09/14/16 at 16:05; Status DC Sodium Chloride (Normal Saline Flush) 10 ml 1X PRN PRN IV AP catheter pack; Start 09/14/16 at 10:15; Stop 09/15/16 at 10:14; Status DC Sodium Chloride 10 ml 10 ml 1X PRN PRN 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; Start 09/14/16 at 10:15; Stop 09/15/16 at 10:14; Status DC Sodium Chloride (Iv Sodium Chloride 0.9% 1000ml Bag) 1,000 ml @ 400 mls/hr Q2H30M PRN IV PATENCY; Start 09/14/16 at 10:06; Stop 09/14/16 at 22:05; Status DC Info 1 each 1 each PRN DAILY PRN MC SEE COMMENTS; Start 09/14/16 at 10:15 Vancomycin HCl 500 mg/Sodium Chloride 100 ml @ 100 mls/hr 1X ONCE IV Last administered on 09/14/16 15:30; Start 09/14/16 at 13:00; Stop 09/14/16 at 13:59 ; Status DC Vancomycin HCl/ Sodium Chloride (Iv Sodium Chloride 0.9% 100ml) 100 ml @ 100 mls/hr QMWF IV Last administered on 09/18/16 17:52; Start 09/16/16 at 16:00; Stop 09/20/16 at 11:56; Status DC Haloperidol Lactate (Haldol) 2 mg PRN Q6HRS PRN IVP AGITATION Last administered on 09/19/16 10:04; Start 09/14/16 at 18:00; Stop 09/21/16 at 12:02 ; Status DC Fentanyl (Duragesic 50mcg/ Hr Patch) 1 patch Q3DAYS TD Last administered on 12:25; Start 09/15/16 at 11:00; Stop 09/15/16 at 16:57; Status DC Haloperidol Lactate 5 mg 5 mg PRN Q6HRS PRN IVP AGITATION Last administered on 09/20/16 01:15; Start 09/15/16 at 12:15 Sodium Chloride 1,000 ml @ 1,000 mls/hr Q1H PRN IV hypotension; Start 09/15/16 at 12:16; Stop 09/15/16 at 18:15; Status DC Albumin Human (Albuminar) 200 ml @ 200 mls/hr 1X PRN PRN IV Hypotension; Start 09/15/16 at 12:30; Stop 09/15/16 at 18:29; Status DC Acetaminophen (Tylenol) 500 mg 1X PRN PRN PO MILD PAIN / TEMP; Start 09/15/16 at 12:30; Stop 09/16/16 at 12:29; Status DC Diphenhydramine HCl (Benadryl) 25 mg 1X PRN PRN IV ITCHING; Start 09/15/16 at 12:30; Stop 09/16/16 at 12:29; Status DC Diphenhydramine HCl (Benadryl) 25 mg 1X PRN PRN IV ITCHING; Start 09/15/16 at 12:30; Stop 09/16/16 at 12:29; Status DC Labetalol HCl (Normodyne) 10 mg PRN Q1HR PRN IVP SBP > 180; Start 09/15/16 at 12:30; Stop 09/16/16 at 12:29; Status DC Clonidine HCl 0.1 mg 0.1 mg 1X PRN PRN PO SBP > 180; Start 09/15/16 at 12:30; Stop 09/16/16 at 12:29; Status DC Sodium Chloride (Iv Sodium Chloride 0.9% 1000ml Bag) 1,000 ml @ 400 mls/hr Q2H30M PRN IV PATENCY; Start 09/15/16 at 12:16; Stop 09/16/16 at 00:15; Status DC Info (PHARMACY MONITORING -- do not chart) 1 each PRN DAILY PRN MC SEE COMMENTS ; Start 09/15/16 at 12:30; Status UNV Fentanyl 1 patch 1 patch Q3DAYS TD Last administered on 09/21/16 07:53; Start 09/15/16 at 17:00 Sodium Chloride 1,000 ml @ 1,000 mls/hr Q1H PRN IV hypotension; Start 09/16/16 at 08:34; Stop 09/16/16 at 14:33; Status DC Albumin Human (Albuminar) 200 ml @ 200 mls/hr 1X PRN PRN IV Hypotension; Start 09/16/16 at 08:45; Stop 09/16/16 at 14:44; Status DC Acetaminophen (Tylenol) 500 mg 1X PRN PRN PO MILD PAIN / TEMP; Start 09/16/16 at 08:45; Stop 09/17/16 at 08:44; Status DC Diphenhydramine HCl (Benadryl) 25 mg 1X PRN PRN IV ITCHING; Start 09/16/16 at 08:45; Stop 09/17/16 at 08:44; Status DC Diphenhydramine HCl (Benadryl) 25 mg 1X PRN PRN IV ITCHING; Start 09/16/16 at 08:45; Stop 09/17/16 at 08:44; Status DC Labetalol HCl (Normodyne) 10 mg PRN Q1HR PRN IVP SBP > 180; Start 09/16/16 at 08:45; Stop 09/17/16 at 08:44; Status DC Clonidine HCl 0.1 mg 0.1 mg 1X PRN PRN PO SBP > 180; Start 09/16/16 at 08:45; Stop 09/17/16 at 08:44; Status DC Sodium Chloride (Iv Sodium Chloride 0.9% 1000ml Bag) 1,000 ml @ 400 mls/hr Q2H30M PRN IV PATENCY; Start 09/16/16 at 08:34; Stop 09/16/16 at 20:33; Status DC Info (PHARMACY MONITORING -- do not chart) 1 each PRN DAILY PRN MC SEE COMMENTS ; Start 09/16/16 at 08:45; Status UNV Nystatin 5 ml [id number] Last administered on 09/21/16 07:51; Start 09/16/16 at 13:00 Fentanyl Citrate (Fentanyl 2ml Vial) 25 mcg PRN Q5MIN PRN IV MILD PAIN; Start 09/17/16 at 07:00; Stop 09/18/16 at 06:59; Status DC Fentanyl Citrate (Fentanyl 2ml Vial) 50 mcg PRN Q5MIN PRN IV MODERATE PAIN Last administered on 09/17/16 16:26; Start 09/17/16 at 07:00; Stop 09/18/16 at 06:59; Status DC Morphine Sulfate 1 mg PRN Q10MIN PRN IV SEVERE PAIN; Start 09/17/16 at 07:00; Stop 09/18/16 at 06:59; Status DC Lidocaine HCl 2 ml PRN 1X PRN ID PRIOR TO IV START; Start 09/17/16 at 07:00; Stop 09/18/16 at 06:59; Status DC Hydromorphone HCl (Dilaudid) 0.5 mg PRN Q10MIN PRN IV SEV PAIN, Second choice; Start 09/17/16 at 07:00; Stop 09/18/16 at 06:59; Status DC Prochlorperazine Edisylate 5 mg 5 mg PACU PRN PRN IV NAUSEA, MRX1 Last administered on 09/17/16 15:42; Start 09/17/16 at 07:00; Stop 09/18/16 at 06:59 ; Status DC Sodium Chloride 1,000 ml @ 0 mls/hr Q0M IV ; Start 09/17/16 at 12:00; Stop at 09:11; Status DC Sodium Phosphate/ Dextrose 256.6667 ml @ 64.167 m... 1X ONCE IV Last administered on 09/17/16 14:12; Start 09/17/16 at 11:00; Stop 09/17/16 at 14:59 ; Status DC Cyproheptadine HCl 4 mg 4 mg PRN TID PRN PO ALLERGIES; Start 09/17/16 at 10:45 ; Stop 09/20/16 at 14:00; Status DC Peritoneal Dialysis Solution (Dianeal With 1.5% Dextrose) 2,000 ml @ 671.667 mls/hr 1X ONCE IP Last administered on 09/17/16 18:46; Start 09/17/16 at 10: 45; Stop 09/17/16 at 13:43; Status DC Fentanyl Citrate 100 mcg 100 mcg STK-MED ONCE .ROUTE ; Start 09/17/16 at 13:48; Stop 09/17/16 at 13:49; Status DC Propofol (Diprivan) 20 ml @ As Directed STK-MED ONCE IV ; Start 09/17/16 at 13: 48; Stop 09/17/16 at 13:49; Status DC Dexamethasone Sodium Phosphate (Decadron) 20 mg STK-MED ONCE .ROUTE ; Start at 13:50; Stop 09/17/16 at 13:51; Status DC Ondansetron HCl (Zofran) 4 mg STK-MED ONCE .ROUTE ; Start 09/17/16 at 13:50; Stop 09/17/16 at 13:51; Status DC Povidone Iodine ( Betadine Oint) 28 katie STK-MED ONCE TP Last administered on 14:20; Start 09/17/16 at 14:50; Stop 09/17/16 at 14:51; Status DC Sevoflurane (Ultane) 60 ml STK-MED ONCE IH ; Start 09/17/16 at 15:16; Stop 09/17 at 15:17; Status DC Lidocaine HCl (Lidocaine HCl 2% Abboject) 100 mg STK-MED ONCE .ROUTE ; Start at 15:17; Stop 09/17/16 at 15:18; Status DC Insulin Aspart (Novolog Vial) 6 unit 1X ONCE SQ Last administered on 16:33; Start 09/17/16 at 16:30; Stop 09/17/16 at 16:31; Status DC Insulin Aspart (Novolog Vial) 100 unit STK-MED ONCE SQ ; Start 09/17/16 at 16:29 ; Stop 09/17/16 at 16:30; Status DC Morphine Sulfate (Morphine Ir) 15 mg PRN Q4HRS PRN PO SEVERE PAIN Last administered on 09/18/16 21:15; Start 09/17/16 at 22:00 Lorazepam 1 mg 1 mg 1X ONCE PO Last administered on 09/17/16 22:01; Start at 22:30; Stop 09/17/16 at 22:31; Status DC Sodium Chloride (Iv Sodium Chloride 0.9% 1000ml Bag) 1,000 ml @ 1,000 mls/hr Q1H PRN IV hypotension; Start 09/18/16 at 08:10; Stop 09/18/16 at 14:09; Status DC Sodium Chloride (Normal Saline Flush) 10 ml 1X PRN PRN IV AP catheter pack; Start 09/18/16 at 08:15; Stop 09/19/16 at 08:14; Status DC Sodium Chloride (Normal Saline Flush) 10 ml 1X PRN PRN 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; Start 09/18/16 at 08:15; Stop 09/19/16 at 08:14; Status DC Info (PHARMACY MONITORING -- do not chart) 1 each PRN DAILY PRN MC SEE COMMENTS ; Start 09/18/16 at 08:15; Status UNV Info (PHARMACY MONITORING -- do not chart) 1 each PRN DAILY PRN MC SEE COMMENTS ; Start 09/18/16 at 08:15; Status UNV Vancomycin HCl 1 each 1X ONCE MC Last administered on 09/18/16 16:00; Start 09/18/16 at 16:00; Stop 09/18/16 at 16:01; Status DC Lidocaine/Sodium Bicarbonate 20 ml 20 ml STK-MED ONCE IJ ; Start 09/18/16 at 13: 09; Stop 09/18/16 at 13:10; Status DC Heparin Sodium/ Sodium Chloride 500 ml @ As Directed STK-MED ONCE .ROUTE ; Start 09/18/16 at 13:09; Stop 09/18/16 at 13:10; Status DC Heparin Sodium/ Sodium Chloride 1,000 unit 1X ONCE IART Last administered on 13:39; Start 09/18/16 at 13:30; Stop 09/18/16 at 13:31; Status DC Lidocaine/Sodium Bicarbonate 20 ml 20 ml 1X ONCE IJ Last administered on 13:39; Start 09/18/16 at 13:30; Stop 09/18/16 at 13:31; Status DC Sodium Thiosulfate/ Miscellaneous (Sodium Thiosulfate) 100 ml @ 100 mls/hr 3X/ WEEK@16 IV ; Start 09/21/16 at 16:00 Collagenase (Santyl) 1 katie DAILY TP ; Start 09/19/16 at 09:00 Collagenase (Santyl) 1 katie 1X ONCE TP ; Start 09/18/16 at 16:00; Stop 09/18/16 at 16:01; Status DC Cyproheptadine HCl (Periactin) 4 mg TID PO Last administered on 09/21/16 07:52 ; Start 09/20/16 at 14:00 Furosemide (Lasix) 80 mg 1X ONCE IVP Last administered on 09/20/16 10:32; Start 09/20/16 at 09:15; Stop 09/20/16 at 10:26; Status DC Amoxicillin/ Clavulanate Potassium 1 tab 1 tab DAILY PO Last administered on t 07:52; Start 09/20/16 at 12:00 Piperacillin Sod/ Tazobactam Sod 4.5 gm/Sodium Chloride 100 ml @ 200 mls/hr 1X ONCE IV ; Start 09/20/16 at 13:45; Stop 09/20/16 at 14:14; Status UNV Sodium Chloride 1,000 ml @ 1,000 mls/hr Q1H PRN IV hypotension; Start 09/21/16 at 10:03; Stop 09/21/16 at 16:02 Albumin Human (Albuminar) 200 ml @ 200 mls/hr 1X PRN PRN IV Hypotension; Start 09/21/16 at 10:15; Stop 09/21/16 at 16:14 Sodium Chloride (Normal Saline Flush) 10 ml 1X PRN PRN IV AP catheter pack; Start 09/21/16 at 10:15; Stop 09/22/16 at 10:14 Sodium Chloride 10 ml 10 ml 1X PRN PRN 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 1 Katie TP TID Vitamin A & D Ointment (Vits A & D/White Pet/Lanolin) 56.7 Gm Oint...g. 1 Katie TP TID Diflucan (Fluconazole) 100 Mg Tablet 100 Mg PO DAILY Allopurinol 100 Mg Tablet 100 Mg PO DAILY Hydrocodone-Apap 5-325 (Hydrocodone Bit/Acetaminophen) 1 Each Tablet 1 Tab PO Q6HRS PRN Eliquis (Apixaban) 2.5 Mg Tablet 2.5 Mg PO DAILY Renvela (Sevelamer Carbonate) 2.4 Gm Powd.pack 2.4 Gm PO TIDWMEALS Miralax (Polyethylene Glycol 3350) 17 Gm Powd.pack 17 Gm PO PRN DAILY PRN Carvedilol 3.125 Mg Tablet 3.125 Mg PO BIDWMEALS Reported Sensipar (Cinacalcet Hcl) 30 Mg Tablet 1 Tab PO DAILY Glimepiride 2 Mg Tablet 4 Mg PO DAILY Novolog (Insulin Aspart) 100 Unit/1 Ml Cartridge 8 Unit SQ TIDAC Atorvastatin Calcium 40 Mg Tablet 1 Tab PO DAILY Vitals/I & O Vital Sign - Last 24 Hours 09/20/16 09/20/16 09/20/16 09/20/16 15:11 17:07 19:00 20:00 Temp 97.5 97.5 97.5 97.5 Pulse 85 85 73 Resp 20 18 B/P 139/84 139/84 142/76 Pulse Ox 97 97 O2 Delivery Room Air Room Air Room Air 09/20/16 09/20/16 09/20/16 09/20/16 20:29 21:30 23:00 23:37 Temp 97.9 97.9 Pulse 90 Resp 16 16 18 20 B/P 134/73 Pulse Ox 90 94 O2 Delivery Room Air Room Air Nasal Cannula O2 Flow Rate 2.0 09/21/16 09/21/16 09/21/16 09/21/16 07:05 07:45 07:52 07:53 Temp 97.5 97.5 Pulse 95 Resp 20 B/P 118/49 Pulse Ox 94 O2 Delivery Room Air Nasal Cannula Nasal Cannula Nasal Cannula O2 Flow Rate 2.0 2.0 2.0 09/21/16 09:00 O2 Delivery Nasal Cannula O2 Flow Rate 2.0 Intake and Output 09/20/16 09/20/16 09/21/16 15:00 23:00 07:00 Intake Total 0 ml Output Total 100 ml 150 ml 50 ml Balance -100 ml -150 ml -50 ml YARED MOSELEY MD September 21, 2016 13:24
[2016-09-21] MEDS: SODIUM THIOSULFATE 25 GM in TOTAL VOLUME 0 ML IV SCH (16:24)
[2016-09-21] MEDS: COLLAGENASE 250 UNIT/GM TOPICAL OINTMENT 30GM TUBE. TP SCH ×2 (17:00→21:00)
--- NOTE | 2016-09-21 17:17 | PDOC2 ---
PALLIATIVE CARE Palliative Care Note Palliative Care Spoke with daughter Kely. Discussed plan of care. Family considering [facility] instead [facility]. Family asking about [facility] as an option. Family sees patient as ???decline. Not eating. Understand patient will have to get stronger/participate in therapy in order to continue with current treatment plan and dialysis. Will evaluate on a day without dialysis. Patient has received Percocet x1 today. Does not appear restless. Denies pain or SOB Will continue to follow HUSSEIN OSCAR September 21, 2016 17:17
[2016-09-21] MEDS: ATORVASTATIN CALCIUM 40 MG TABLET. PO SCH (21:00)
[2016-09-21] MEDS: INSULIN DETEMIR 300 UNITS/3 ML INSULN.PEN. SQ SCH (21:00)
[2016-09-21] MEDS: HALOPERIDOL LACTATE 5 MG/ML VIAL. IVP PRN (22:53)
[2016-09-21 23:18] VITALS: BP 122/104
[2016-09-22] MEDS: HALOPERIDOL LACTATE 5 MG/ML VIAL. IVP PRN ×2 (06:08→17:41)
[2016-09-22 06:51] LABS: CALCIUM 8.9 mg/dL (8.5-10.1); CREATININE 3.5 mg/dL (0.7-1.3); GFR 16.7; POTASSIUM 4.4 mmol/L (3.5-5.1)
[2016-09-22 07:00] VITALS: BP 147/56
[2016-09-22 07:16] LABS: BASO # 0.1 x10^3/uL (0.0-0.2); BASO % 1 % (0-3); EOS % 3 % (0-3); HEMATOCRIT 27.5 % (39.0-53.0); HEMOGLOBIN 9.1 g/dL (13.0-17.5); LYMPH # 0.7 x10^3/uL (1.0-4.8); LYMPH % 8 % (24-48); MEAN CORPUSCULAR HEMOGLOBIN 32 pg (25-35); MEAN CORPUSCULAR HGB CONC 33 g/dL (31-37); MEAN CORPUSCULAR VOLUME 96 fL (79-100); MONO % 9 % (0-9); NEUT % 79 % (31-73); PLATELET COUNT 234 x10^3/uL (140-400); RED BLOOD COUNT 2.86 x10^6/uL (4.30-5.70); RED CELL DISTRIBUTION WIDTH 17.5 % (11.5-14.5); WHITE BLOOD COUNT 8.5 x10^3/uL (4.0-11.0)
[2016-09-22] MEDS: PANTOPRAZOLE 40 MG TABLET.DR. PO SCH ×2 (07:30→08:55)
[2016-09-22] MEDS: INSULIN ASPART 300 UNITS/3 ML INSULN.PEN SQ SCH ×6 (07:30→21:07)
[2016-09-22] MEDS: CARVEDILOL 3.125 MG TABLET. PO SCH ×3 (08:00→16:48)
[2016-09-22] MEDS: SEVELAMER CARBONATE 800 MG TABLET. PO SCH ×3 (08:00→16:48)
[2016-09-22] MEDS: NYSTATIN 100,000 UNITS/ML 5 ML ORAL.SUSP. SWSW SCH ×5 (08:55→21:01)
[2016-09-22] MEDS: APIXABAN 2.5 MG TABLET. PO SCH ×3 (08:55→21:00)
[2016-09-22] MEDS: FLUCONAZOLE 100 MG TABLET. PO SCH ×2 (08:56→09:00)
[2016-09-22] MEDS: oxyCODONE/APAP 5/325 1 TAB TABLET PO PRN ×2 (08:57→19:43)
[2016-09-22] MEDS: CYPROHEPTADINE 4 MG TABLET. PO SCH ×4 (08:57→21:00)
[2016-09-22] MEDS: ALLOPURINOL 100 MG TABLET. PO SCH ×2 (08:57→09:00)
[2016-09-22] MEDS: DOCUSATE SODIUM 100 MG CAPSULE. PO SCH ×2 (08:57→09:00)
[2016-09-22] MEDS: AMOXICILLIN/K CLAV 500/125MG TABLET. PO SCH ×2 (08:57→09:00)
[2016-09-22] MEDS: COLLAGENASE 250 UNIT/GM TOPICAL OINTMENT 30GM TUBE. TP SCH ×3 (09:00→13:36)
[2016-09-22] MEDS: AMINO AC 3%/ELECTROLYTE/GLYCER 1,000 ML IV SCH ×2 (10:09→23:21)
[2016-09-22 11:00] VITALS: BP 148/70
--- NOTE | 2016-09-22 13:14 | PDOC2 ---
PALLIATIVE CARE Palliative Care Note Palliative Care Patient alert. Discussed options for discharge with son Leroy and patient Patient not accepted at [facility]. Derrick DE LEON assisting with discharge. [facility] to eval. [facility] discussed as 2nd option if patient is not accepted at [facility]. Would consider d/c Fentanyl patch and using prn pain medication prior to therapy. Patient appears comfortable and denies pain when not moving. Patient with poor appetite. Will need to consider alternative if no improvement. Last BM 09/17. Patient refusing Colace. Miralax is available order. HUSSEIN OSCAR September 22, 2016 13:14
--- NOTE | 2016-09-22 13:18 | PDOC ---
PROGRESS NOTES Chief Complaint Chief Complaint cc: Scrotal pain -Cellulitis of the scrotum -CAD -CHF -NE -Peripheral neuropathy -Tonsillectomy -Cataract extraction -CABG -Hyperlipidemia -Atrial fibrillation -Hypertension -Colonic polyps -GERD -Dialysis -DM -Parathyroid disease -Smoking -Anemia -Skin cancer -Chronic renal failure plan: fu with id, on augmentin fu with renal, on HD now, was on PD fu with uro, post i and d, penis wound still looks bad, cont wound care SW fu , need to dc to LTAC or SNF LOW PO intake, on PPN, dc aspart given low po intake PTOT History of Present Illness History of Present Illness Patient seen and evaluated at the bedside. No acute events overnight. Per , patient's pain is managed with the medications. Nursing noted patient's breathing has been swallow this AM, yet he is saturating 100% without any signs of respiratory distress. Dressings in place. d/w nurse about plan of care. mental status not improving as expected, pain seems better controlled, pt sleeps most of the time, agitated sometimes. Vitals Vitals Vital Signs Date Time Temp Pulse Resp B/P Pulse Ox O2 Delivery O2 Flow Rate FiO2 09/22/16 11:00 97.7 74 14 148/70 97 Room Air 97.7 09/22/16 09:57 2.0 Physical Exam General: Cooperative, No acute distress, Other (somnolent, with swallow breathing. responds to voice, but limited in following commands. ) Heart: Regular rate, Normal S1, Normal S2, No murmurs Lungs: Clear, Other (swallow breathing with prolonged time between inspirations , not apneic. Negative chest retractions and/or other accessory muscle use. ) Abdomen: Soft, No tenderness Extremities: No clubbing, No edema Skin: No rashes, No breakdown, Other (dressing intact clean, dry, without saturation. ) Labs LABS Laboratory Tests Test 09/21/16 16:53 09/21/16 21:22 09/22/16 06:08 09/22/16 07:23 Glucose (Fingerstick) 118mg/dL (70-99) 150mg/dL (70-99) 208mg/dL (70-99) White Blood Count 8.5x10^3/uL (4.0-11.0) Red Blood Count 2.86x10^6/uL (4.30-5.70) Hemoglobin 9.1g/dL (13.0-17.5) Hematocrit 27.5% (39.0-53.0) Mean Corpuscular Volume 96fL (79-100) Mean Corpuscular Hemoglobin 32pg (25-35) Mean Corpuscular Hemoglobin Concent 33g/dL (31-37) Red Cell Distribution Width 17.5% (11.5-14.5) Platelet Count 234x10^3/uL (140-400) Neutrophils (%) (Auto) 79% (31-73) Lymphocytes (%) (Auto) 8% (24-48) Monocytes (%) (Auto) 9% (0-9) Eosinophils (%) (Auto) 3% (0-3) Basophils (%) (Auto) 1% (0-3) Neutrophils # (Auto) 6.7x10^3uL (1.8-7.7) Lymphocytes # (Auto) 0.7x10^3/uL (1.0-4.8) Monocytes # (Auto) 0.8x10^3/uL (0.0-1.1) Eosinophils # (Auto) 0.2x10^3/uL (0.0-0.7) Basophils # (Auto) 0.1x10^3/uL (0.0-0.2) Sodium Level 137mmol/L (136-145) Potassium Level 4.4mmol/L (3.5-5.1) Chloride Level 94mmol/L (98-107) Carbon Dioxide Level 22mmol/L (21-32) Anion Gap 21 (6-14) Blood Urea Nitrogen 37mg/dL (8-26) Creatinine 3.5mg/dL (0.7-1.3) Estimated GFR (Cockcroft-Gault) 16.7 Glucose Level 191mg/dL (70-99) Calcium Level 8.9mg/dL (8.5-10.1) Test 09/22/16 11:41 Glucose (Fingerstick) 197mg/dL (70-99) Review of Systems Review of Systems No fever, chills, sob or chest pain Assessment and Plan Assessmemt and Plan Problems Medical Problems: (1) Open wound of scrotum Status: Acute Problems: Comment Review of Relevant I have reviewed the following items robert (where applicable) has been applied. Labs Laboratory Tests Test 09/20/16 17:00 09/20/16 20:45 09/21/16 05:45 09/21/16 07:31 Glucose (Fingerstick) 233mg/dL (70-99) 202mg/dL (70-99) 82mg/dL (70-99) White Blood Count 8.8x10^3/uL (4.0-11.0) Red Blood Count 2.73x10^6/uL (4.30-5.70) Hemoglobin 8.6g/dL (13.0-17.5) Hematocrit 26.3% (39.0-53.0) Mean Corpuscular Volume 97fL (79-100) Mean Corpuscular Hemoglobin 32pg (25-35) Mean Corpuscular Hemoglobin Concent 33g/dL (31-37) Red Cell Distribution Width 17.5% (11.5-14.5) Platelet Count 251x10^3/uL (140-400) Neutrophils (%) (Auto) 76% (31-73) Lymphocytes (%) (Auto) 12% (24-48) Monocytes (%) (Auto) 8% (0-9) Eosinophils (%) (Auto) 4% (0-3) Basophils (%) (Auto) 1% (0-3) Neutrophils # (Auto) 6.7x10^3uL (1.8-7.7) Lymphocytes # (Auto) 1.1x10^3/uL (1.0-4.8) Monocytes # (Auto) 0.7x10^3/uL (0.0-1.1) Eosinophils # (Auto) 0.3x10^3/uL (0.0-0.7) Basophils # (Auto) 0.1x10^3/uL (0.0-0.2) Sodium Level 134mmol/L (136-145) Potassium Level 5.0mmol/L (3.5-5.1) Chloride Level 93mmol/L (98-107) Carbon Dioxide Level 22mmol/L (21-32) Anion Gap 19 (6-14) Blood Urea Nitrogen 59mg/dL (8-26) Creatinine 4.8mg/dL (0.7-1.3) Estimated GFR (Cockcroft-Gault) 11.6 Glucose Level 84mg/dL (70-99) Calcium Level 8.9mg/dL (8.5-10.1) Test 09/21/16 11:58 09/21/16 16:53 09/21/16 21:22 09/22/16 06:08 Glucose (Fingerstick) 86mg/dL (70-99) 118mg/dL (70-99) 150mg/dL (70-99) White Blood Count 8.5x10^3/uL (4.0-11.0) Red Blood Count 2.86x10^6/uL (4.30-5.70) Hemoglobin 9.1g/dL (13.0-17.5) Hematocrit 27.5% (39.0-53.0) Mean Corpuscular Volume 96fL (79-100) Mean Corpuscular Hemoglobin 32pg (25-35) Mean Corpuscular Hemoglobin Concent 33g/dL (31-37) Red Cell Distribution Width 17.5% (11.5-14.5) Platelet Count 234x10^3/uL (140-400) Neutrophils (%) (Auto) 79% (31-73) Lymphocytes (%) (Auto) 8% (24-48) Monocytes (%) (Auto) 9% (0-9) Eosinophils (%) (Auto) 3% (0-3) Basophils (%) (Auto) 1% (0-3) Neutrophils # (Auto) 6.7x10^3uL (1.8-7.7) Lymphocytes # (Auto) 0.7x10^3/uL (1.0-4.8) Monocytes # (Auto) 0.8x10^3/uL (0.0-1.1) Eosinophils # (Auto) 0.2x10^3/uL (0.0-0.7) Basophils # (Auto) 0.1x10^3/uL (0.0-0.2) Sodium Level 137mmol/L (136-145) Potassium Level 4.4mmol/L (3.5-5.1) Chloride Level 94mmol/L (98-107) Carbon Dioxide Level 22mmol/L (21-32) Anion Gap 21 (6-14) Blood Urea Nitrogen 37mg/dL (8-26) Creatinine 3.5mg/dL (0.7-1.3) Estimated GFR (Cockcroft-Gault) 16.7 Glucose Level 191mg/dL (70-99) Calcium Level 8.9mg/dL (8.5-10.1) Test 09/22/16 07:23 09/22/16 11:41 Glucose (Fingerstick) 208mg/dL (70-99) 197mg/dL (70-99) Laboratory Tests Test 09/21/16 16:53 09/21/16 21:22 09/22/16 06:08 09/22/16 07:23 Glucose (Fingerstick) 118mg/dL (70-99) 150mg/dL (70-99) 208mg/dL (70-99) White Blood Count 8.5x10^3/uL (4.0-11.0) Red Blood Count 2.86x10^6/uL (4.30-5.70) Hemoglobin 9.1g/dL (13.0-17.5) Hematocrit 27.5% (39.0-53.0) Mean Corpuscular Volume 96fL (79-100) Mean Corpuscular Hemoglobin 32pg (25-35) Mean Corpuscular Hemoglobin Concent 33g/dL (31-37) Red Cell Distribution Width 17.5% (11.5-14.5) Platelet Count 234x10^3/uL (140-400) Neutrophils (%) (Auto) 79% (31-73) Lymphocytes (%) (Auto) 8% (24-48) Monocytes (%) (Auto) 9% (0-9) Eosinophils (%) (Auto) 3% (0-3) Basophils (%) (Auto) 1% (0-3) Neutrophils # (Auto) 6.7x10^3uL (1.8-7.7) Lymphocytes # (Auto) 0.7x10^3/uL (1.0-4.8) Monocytes # (Auto) 0.8x10^3/uL (0.0-1.1) Eosinophils # (Auto) 0.2x10^3/uL (0.0-0.7) Basophils # (Auto) 0.1x10^3/uL (0.0-0.2) Sodium Level 137mmol/L (136-145) Potassium Level 4.4mmol/L (3.5-5.1) Chloride Level 94mmol/L (98-107) Carbon Dioxide Level 22mmol/L (21-32) Anion Gap 21 (6-14) Blood Urea Nitrogen 37mg/dL (8-26) Creatinine 3.5mg/dL (0.7-1.3) Estimated GFR (Cockcroft-Gault) 16.7 Glucose Level 191mg/dL (70-99) Calcium Level 8.9mg/dL (8.5-10.1) Test 09/22/16 11:41 Glucose (Fingerstick) 197mg/dL (70-99) Microbiology 09/07/16 Blood Culture - Final, Complete NO GROWTH AFTER 5 DAYS 09/17/16 Anaerobic/Aerobic Culture - Final, Complete 09/17/16 Anaerobic Culture Result 1 (RONEN) - Final, Complete 09/17/16 Aerobic Culture - Final, Complete 09/17/16 Aerobic Culture Result 1 (RONEN) - Final, Complete Medications Current Medications Meropenem/Sodium Chloride (Merrem/Iv Sodium Chloride 0.9% 100ml) 100 ml @ 200 mls/hr Q8HRS IV ; Start 09/07/16 at 22:00; Status UNV Vancomycin HCl 1 each 1 each PRN DAILY PRN MC SEE COMMENTS Last administered on 09/19/16 11:42; Start 09/07/16 at 20:45; Stop 09/20/16 at 11:56; Status DC Sodium Chloride (Iv Sodium Chloride 0.9% 500ml Bag) 500 ml @ 500 mls/hr 1X ONCE IV Last administered on 09/07/16 21:04; Start 09/07/16 at 21:00; Stop at 21:59; Status DC Hydromorphone HCl 1 mg 1 mg 1X ONCE IV Last administered on 09/07/16 20:59; Start 09/07/16 at 21:00; Stop 09/07/16 at 21:01; Status DC Meropenem 500 mg/ Sodium Chloride 50 ml @ 100 mls/hr QHS IV Last administered on 09/07/16 21:05; Start 09/07/16 at 21:00; Stop 09/08/16 at 07:59; Status DC Vancomycin HCl/ Sodium Chloride (Iv Sodium Chloride 0.9% 500ml Bag) 500 ml @ 250 mls/hr 1X ONCE IV Last administered on 09/07/16 22:07; Start 09/07/16 at 21:30; Stop 09/07/16 at 23:29; Status DC Ondansetron HCl (Zofran) 4 mg PRN Q8HRS PRN IV NAUSEA/VOMITING Last administered on 09/07/16 22:43; Start 09/07/16 at 22:00; Stop 09/08/16 at 21:59 ; Status DC Morphine Sulfate 4 mg 4 mg PRN Q2HR PRN IV SEVERE PAIN Last administered on 21:12; Start 09/07/16 at 22:00; Stop 09/08/16 at 21:59; Status DC Sodium Chloride (Iv Sodium Chloride 0.9% 1000ml Bag) 1,000 ml @ 75 mls/hr [id number] IV Last administered on 09/08/16 12:56; Start 09/07/16 at 21:52; Stop 09/08/16 at 21:51; Status DC Insulin Aspart (Novolog) 0-7 UNITS TIDWMEALS SQ ; Start 09/08/16 at 08:00; Stop 09/08/16 at 08:00; Status DC Dextrose (Dextrose 50%-Water Syringe) 12.5 gm PRN Q15MIN PRN IV SEE COMMENTS Last administered on 09/08/16 21:03; Start 09/07/16 at 22:30 Allopurinol (Zyloprim) 100 mg DAILY PO Last administered on 09/21/16 07:52; Start 09/08/16 at 09:00 Apixaban (Eliquis) 2.5 mg DAILY PO Last administered on 09/08/16 07:59; Start 09/08/16 at 09:00; Stop 09/08/16 at 10:43; Status DC Atorvastatin Calcium (Lipitor) 40 mg QHS PO Last administered on 09/20/16 20: 29; Start 09/08/16 at 21:00 Carvedilol (Coreg) 3.125 mg BIDWMEALS PO Last administered on 09/20/16 17:07; Start 09/08/16 at 08:00 Cinacalcet (Sensipar) 30 mg DAILY PO Last administered on 09/16/16 11:40; Start 09/08/16 at 09:00; Stop 09/17/16 at 10:47; Status DC Glimepiride (Amaryl) 4 mg DAILY PO Last administered on 09/08/16 07:59; Start 09/08/16 at 09:00; Stop 09/09/16 at 13:46; Status DC Acetaminophen/ Hydrocodone Bitart (Lortab 5/325) 1 tab PRN Q6HRS PRN PO SEVERE PAIN Last administered on 09/09/16 06:16; Start 09/07/16 at 22:30; Stop at 14:14; Status DC Polyethylene Glycol (miraLAX PACKET) 17 gm PRN DAILY PRN PO CONSTIPATION; Start 09/07/16 at 22:30 Sevelamer Carbonate (Renvela) 2.4 gm TIDWMEALS PO Last administered on 07:59; Start 09/08/16 at 08:00; Stop 09/08/16 at 12:01; Status DC Vitamin A/Vitamin D (Vitamin A & D Ointment) 1 katie TID TP Last administered on 09/16/16 20:37; Start 09/08/16 at 09:00; Stop 09/18/16 at 08:05; Status DC Docusate Sodium (Colace) 100 mg PRN DAILY PRN PO CONSTIPATION; Start 09/07/16 at 22:45 Docusate Sodium (Colace) 100 mg DAILY PO Last administered on 09/21/16 07:52; Start 09/08/16 at 09:00 Potassium Chloride (Klor-Con) 20 meq 1X ONCE PO Last administered on 01:38; Start 09/07/16 at 23:00; Stop 09/07/16 at 23:01; Status DC Insulin Aspart (Novolog) 0-7 UNITS QIDACHS SQ Last administered on 09/20/16 17 :13; Start 09/07/16 at 22:45 Info (Anti-Coagulation Monitoring By Pharmacy) 1 each PRN DAILY PRN MC SEE COMMENTS Last administered on 09/21/16 10:59; Start 09/07/16 at 23:45 Vancomycin HCl 1 each 1 each 1X ONCE MC ; Start 09/11/16 at 21:30; Stop at 21:30; Status DC Vancomycin HCl 1.5 gm/Sodium Chloride 500 ml @ 250 mls/hr Q48H IV ; Start 09/09 at 22:00; Stop 09/09/16 at 22:00; Status DC Piperacillin Sod/ Tazobactam Sod/ Sodium Chloride (Zosyn/Iv Sodium Chloride 0.9 % 50ml) 50 ml @ 100 mls/hr Q8HRS IV Last administered on 09/10/16 06:11; Start 09/08/16 at 08:30; Stop 09/10/16 at 09:00; Status DC Fluconazole (Diflucan) 100 mg DAILY PO Last administered on 09/21/16 07:51; Start 09/08/16 at 09:00 Darbepoetin Lasha (Aranesp) 60 mcg WEEKLYHS SQ Last administered on 09/15/16 21 :23; Start 09/08/16 at 21:00 Apixaban (Eliquis) 2.5 mg BID PO Last administered on 09/21/16 07:51; Start at 21:00 Vancomycin HCl 1 each 1X ONCE MC Last administered on 09/09/16 06:00; Start 09/09/16 at 06:00; Stop 09/09/16 at 06:01; Status DC Sevelamer Carbonate (Renvela) 2,400 mg TIDWMEALS PO Last administered on 08:43; Start 09/08/16 at 12:00 Insulin Aspart (Novolog) 8 units TIDAC SQ Last administered on 09/10/16 08:41 ; Start 09/08/16 at 12:00; Stop 09/10/16 at 10:17; Status DC Lorazepam (Ativan) 0.5 mg PRN Q6HRS PRN PO ANXIETY / AGITATION Last administered on 09/19/16 11:23; Start 09/08/16 at 13:00 Fentanyl Citrate (Fentanyl 2ml Vial) 25 mcg PRN Q5MIN PRN IV MILD PAIN; Start 09/09/16 at 07:00; Stop 09/10/16 at 06:59; Status DC Fentanyl Citrate (Fentanyl 2ml Vial) 50 mcg PRN Q5MIN PRN IV MODERATE PAIN; Start 09/09/16 at 07:00; Stop 09/10/16 at 06:59; Status DC Morphine Sulfate 1 mg PRN Q10MIN PRN IV SEVERE PAIN; Start 09/09/16 at 07:00; Stop 09/10/16 at 06:59; Status DC Lidocaine HCl 2 ml PRN 1X PRN ID PRIOR TO IV START; Start 09/09/16 at 07:00; Stop 09/10/16 at 06:59; Status DC Hydromorphone HCl (Dilaudid) 0.5 mg PRN Q10MIN PRN IV SEV PAIN, Second choice; Start 09/09/16 at 07:00; Stop 09/10/16 at 06:59; Status DC Prochlorperazine Edisylate 5 mg 5 mg PACU PRN PRN IV NAUSEA, MRX1; Start at 07:00; Stop 09/10/16 at 06:59; Status DC Sodium Chloride (Iv Sodium Chloride 0.9% 1000ml Bag) 1,000 ml @ 0 mls/hr Q0M IV ; Start 09/09/16 at 12:00; Stop 09/10/16 at 10:51; Status DC Morphine Sulfate 4 mg PRN Q2HR PRN IV SEVERE PAIN Last administered on 10:43; Start 09/09/16 at 01:00; Stop 09/11/16 at 15:23; Status DC Lidocaine HCl 30 ml STK-MED ONCE .ROUTE ; Start 09/09/16 at 07:12; Stop at 07:13; Status Cancel Cellulose 1 each STK-MED ONCE .ROUTE ; Start 09/09/16 at 07:12; Stop 09/09/16 at 07:13; Status Cancel Papaverine HCl 60 mg 60 mg STK-MED ONCE .ROUTE ; Start 09/09/16 at 07:13; Stop 09/09/16 at 07:14; Status Cancel Sodium Chloride 1,000 ml @ 1,000 mls/hr Q1H PRN IV hypotension; Start 09/09/16 at 07:30; Stop 09/09/16 at 13:29; Status DC Albumin Human (Albuminar) 200 ml @ 200 mls/hr 1X PRN PRN IV Hypotension Last administered on 4/19/17at 09:37; Start 09/09/16 at 07:30; Stop 09/09/16 at 13:29 ; Status DC Acetaminophen (Tylenol) 500 mg 1X PRN PRN PO MILD PAIN / TEMP; Start 09/09/16 at 07:30; Stop 09/10/16 at 07:29; Status DC Diphenhydramine HCl (Benadryl) 25 mg 1X PRN PRN IV ITCHING; Start 09/09/16 at 07:30; Stop 09/10/16 at 07:29; Status DC Diphenhydramine HCl (Benadryl) 25 mg 1X PRN PRN IV ITCHING; Start 09/09/16 at 07:30; Stop 09/10/16 at 07:29; Status DC Labetalol HCl (Normodyne) 10 mg PRN Q1HR PRN IVP SBP > 180; Start 09/09/16 at 07:30; Stop 09/10/16 at 07:29; Status DC Clonidine HCl 0.1 mg 0.1 mg 1X PRN PRN PO SBP > 180; Start 09/09/16 at 07:30; Stop 09/10/16 at 07:29; Status DC Sodium Chloride (Iv Sodium Chloride 0.9% 1000ml Bag) 1,000 ml @ 400 mls/hr Q2H30M PRN IV PATENCY; Start 09/09/16 at 07:30; Stop 09/09/16 at 19:29; Status DC Info 1 each 1 each PRN DAILY PRN MC SEE COMMENTS; Start 09/09/16 at 07:30; Stop 09/14/16 at 10:15; Status DC Heparin Sodium (Porcine) 5000 unit/Sodium Chloride 505 ml @ 505 mls/hr 1X PERIOP ONCE IRR ; Start 09/09/16 at 09:00; Stop 09/09/16 at 09:59; Status DC Cefazolin Sodium 1 gm/Sodium Chloride 500 ml @ 500 mls/hr 1X PERIOP ONCE IRR ; Start 09/09/16 at 09:00; Stop 09/09/16 at 09:59; Status DC Cefazolin Sodium (Ancef 1gm Ivpb For Omni) 0 ml @ As Directed STK-MED ONCE IV ; Start 09/09/16 at 13:23; Stop 09/09/16 at 13:24; Status DC Acetaminophen/ Hydrocodone Bitart (Lortab 5/325) 1 tab PRN Q4HRS PRN PO PAIN; Start 09/09/16 at 14:15; Stop 09/11/16 at 11:52; Status DC Acetaminophen/ Hydrocodone Bitart (Lortab 5/325) 2 tab PRN Q4HRS PRN PO PAIN Last administered on 09/11/16 04:49; Start 09/09/16 at 14:15; Stop 09/11/16 at 11:52; Status DC Midazolam HCl (Versed) 2 mg STK-MED ONCE .ROUTE ; Start 09/09/16 at 14:06; Stop 09/09/16 at 14:07; Status DC Fentanyl Citrate 100 mcg 100 mcg STK-MED ONCE .ROUTE ; Start 09/09/16 at 14:06; Stop 09/09/16 at 14:07; Status DC Vancomycin HCl/ Sodium Chloride (Iv Sodium Chloride 0.9% 100ml) 100 ml @ 100 mls/hr QMWF IV Last administered on 09/09/16 17:36; Start 09/09/16 at 16:00; Stop 09/11/16 at 15:32; Status DC Lidocaine HCl 20 ml STK-MED ONCE .ROUTE ; Start 09/09/16 at 14:11; Stop at 14:12; Status DC Lidocaine HCl 20 ml STK-MED ONCE .ROUTE ; Start 09/09/16 at 14:11; Stop at 14:12; Status Cancel Cellulose 1 each STK-MED ONCE .ROUTE ; Start 09/09/16 at 14:12; Stop 09/09/16 at 14:13; Status Cancel Papaverine HCl 60 mg 60 mg STK-MED ONCE .ROUTE ; Start 09/09/16 at 14:12; Stop 09/09/16 at 14:13; Status DC Propofol (Diprivan) 20 ml @ As Directed STK-MED ONCE IV ; Start 09/09/16 at 14: 51; Stop 09/09/16 at 14:52; Status DC Amoxicillin/ Clavulanate Potassium (Augmentin 500/ 125mg) 1 tab DAILY PO Last administered on 09/10/16 10:43; Start 09/10/16 at 10:00; Stop 09/11/16 at 10:47 ; Status DC Insulin Aspart (Novolog) 5 units TIDAC SQ Last administered on 09/22/16 09:07; Start 09/10/16 at 11:30 Insulin Detemir (Levemir) 10 units QHS SQ Last administered on 09/10/16 21:46 ; Start 09/10/16 at 21:00; Stop 09/11/16 at 10:42; Status DC Sodium Thiosulfate 25 gm 25 gm 3X/WEEK IV ; Start 09/11/16 at 09:00; Status UNV Magnesium Sulfate/ Dextrose 50 ml @ 25 mls/hr PRN DAILY PRN IV for Mag < 1.7 on am labs; Start 09/10/16 at 10:45 Sodium Thiosulfate 25 gm/ Sodium Chloride 100 ml @ 100 mls/hr 3X/WEEK@16 IV Last administered on 09/18/16 15:11; Start 09/11/16 at 16:00; Stop 09/18/16 at 18:00; Status DC Amino Acids/ Glycerin/ Electrolytes (Procalamine) 1,000 ml @ 80 mls/hr [id number] IV Last administered on 09/22/16 10:09; Start 09/10/16 at 11:30 Fentanyl Citrate (Fentanyl 2ml Vial) 25 mcg PRN Q2HR PRN IV PAIN Last administered on 09/13/16 17:02; Start 09/10/16 at 13:00; Stop 09/13/16 at 18:42 ; Status DC Albuterol Sulfate (Ventolin Neb Soln) 2.5 mg PRN Q4HRS PRN NEB SHORTNESS OF BREATH Last administered on 09/12/16 08:56; Start 09/10/16 at 13:30 Tramadol HCl (Ultram) 50 mg PRN Q6HRS PRN PO MILD PAIN Last administered on 08:39; Start 09/10/16 at 13:45 Ondansetron HCl (Zofran) 4 mg PRN Q6HRS PRN IV NAUSEA/VOMITING Last administered on 09/11/16 08:39; Start 09/10/16 at 19:15 Calcium Carbonate/ Glycine (Tums) 500 mg TID PRN PO INDIGESTION; Start at 19:15; Stop 09/17/16 at 10:47; Status DC Pantoprazole Sodium (Protonix) 40 mg DAILYAC PO Last administered on 09/21/16 07:51; Start 09/10/16 at 20:00 Prochlorperazine Edisylate (Compazine) 10 mg PRN Q6HRS PRN IV NAUSEA/VOMITING Last administered on 09/11/16 10:49; Start 09/11/16 at 10:30 Insulin Detemir (Levemir) 15 units QHS SQ Last administered on 09/20/16 20:54 ; Start 09/11/16 at 21:00 Metoclopramide HCl 5 mg 5 mg PRN Q6HRS PRN IV NAUSEA/VOMITING Last administered on 09/11/16 20:55; Start 09/11/16 at 10:45 Piperacillin Sod/ Tazobactam Sod/ Sodium Chloride (Zosyn/Iv Sodium Chloride 0.9 % 50ml) 50 ml @ 100 mls/hr Q8HRS IV Last administered on 09/20/16 05:49; Start 09/11/16 at 14:00; Stop 09/20/16 at 11:56; Status DC Oxycodone/ Acetaminophen 1 tab 1 tab PRN Q4HRS PRN PO MODERATE PAIN Last administered on 09/22/16 08:57; Start 09/11/16 at 12:00 Sodium Thiosulfate/ Sodium Chloride (Sodium Thiosulfate/Iv Sodium Chloride 0.9% 100ml) 100 ml @ 100 mls/hr 1X ONCE IV Last administered on 09/12/16 16:00; Start 09/12/16 at 16:00; Stop 09/12/16 at 16:59; Status DC Lorazepam (Ativan) 1 mg 1X ONCE IV ; Start 09/11/16 at 18:00; Stop 09/11/16 at 18:01; Status DC Haloperidol Lactate (Haldol) 2 mg PRN Q24HRS PRN IVP AGITATION Last administered on 09/14/16 11:04; Start 09/11/16 at 18:00; Stop 09/14/16 at 15:06 ; Status DC Lorazepam 1 mg 1 mg 1X ONCE IV Last administered on 09/12/16 03:14; Start at 01:00; Stop 09/12/16 at 01:01; Status DC Sodium Chloride (Iv Sodium Chloride 0.9% 1000ml Bag) 1,000 ml @ 1,000 mls/hr Q1H PRN IV hypotension; Start 09/12/16 at 08:00; Stop 09/12/16 at 13:59; Status DC Diphenhydramine HCl 50 mg 50 mg 1X PRN PRN IV ITCHING Last administered on 09/12 09:06; Start 09/12/16 at 08:45; Stop 09/12/16 at 16:00; Status DC Sodium Chloride (Iv Sodium Chloride 0.9% 1000ml Bag) 1,000 ml @ 400 mls/hr Q2H30M PRN IV PATENCY; Start 09/12/16 at 08:00; Stop 09/12/16 at 19:59; Status DC Info (PHARMACY MONITORING -- do not chart) 1 each PRN DAILY PRN MC SEE COMMENTS ; Start 09/12/16 at 08:45; Status UNV Lorazepam 0.5 mg 0.5 mg PRN Q6HRS PRN IV ANXIETY / AGITATION Last administered on 09/14/16 23:37; Start 09/12/16 at 11:00 Vancomycin HCl/ Sodium Chloride (Iv Sodium Chloride 0.9% 100ml) 100 ml @ 100 mls/hr 1X ONCE IV Last administered on 09/12/16 14:40; Start 09/12/16 at 13: 00; Stop 09/12/16 at 13:59; Status DC Fentanyl Citrate (Fentanyl 2ml Vial) 50 mcg PRN Q2HR PRN IV PAIN Last administered on 09/17/16 13:12; Start 09/13/16 at 18:45 Morphine Sulfate 1 mg PRN Q2HR PRN IV PAIN Last administered on 09/15/16 08:51 ; Start 09/13/16 at 18:45; Stop 09/15/16 at 10:39; Status DC Lidocaine (Lidoderm) 1 patch DAILY TD ; Start 09/13/16 at 19:00; Stop 09/13/16 at 19:16; Status DC Lidocaine HCl 1 katie 1 katie TID TP Last administered on 09/16/16 20:37; Start at 21:00; Stop 09/18/16 at 08:05; Status DC Sodium Chloride (Iv Sodium Chloride 0.9% 1000ml Bag) 1,000 ml @ 1,000 mls/hr Q1H PRN IV hypotension; Start 09/14/16 at 10:06; Stop 09/14/16 at 16:05; Status DC Sodium Chloride (Normal Saline Flush) 10 ml 1X PRN PRN IV AP catheter pack; Start 09/14/16 at 10:15; Stop 09/15/16 at 10:14; Status DC Sodium Chloride 10 ml 10 ml 1X PRN PRN IV CLOTH BOLT BANDER catheter pack; Start 09/14/16 at 10:15; Stop 09/15/16 at 10:14; Status DC Sodium Chloride (Iv Sodium Chloride 0.9% 1000ml Bag) 1,000 ml @ 400 mls/hr Q2H30M PRN IV PATENCY; Start 09/14/16 at 10:06; Stop 09/14/16 at 22:05; Status DC Info 1 each 1 each PRN DAILY PRN MC SEE COMMENTS; Start 09/14/16 at 10:15 Vancomycin HCl 500 mg/Sodium Chloride 100 ml @ 100 mls/hr 1X ONCE IV Last administered on 09/14/16 15:30; Start 09/14/16 at 13:00; Stop 09/14/16 at 13:59 ; Status DC Vancomycin HCl/ Sodium Chloride (Iv Sodium Chloride 0.9% 100ml) 100 ml @ 100 mls/hr QMWF IV Last administered on 09/18/16 17:52; Start 09/16/16 at 16:00; Stop 09/20/16 at 11:56; Status DC Haloperidol Lactate (Haldol) 2 mg PRN Q6HRS PRN IVP AGITATION Last administered on 09/19/16 10:04; Start 09/14/16 at 18:00; Stop 09/21/16 at 12:02 ; Status DC Fentanyl (Duragesic 50mcg/ Hr Patch) 1 patch Q3DAYS TD Last administered on 12:25; Start 09/15/16 at 11:00; Stop 09/15/16 at 16:57; Status DC Haloperidol Lactate 5 mg 5 mg PRN Q6HRS PRN IVP AGITATION Last administered on 09/22/16 06:08; Start 09/15/16 at 12:15 Sodium Chloride 1,000 ml @ 1,000 mls/hr Q1H PRN IV hypotension; Start 09/15/16 at 12:16; Stop 09/15/16 at 18:15; Status DC Albumin Human (Albuminar) 200 ml @ 200 mls/hr 1X PRN PRN IV Hypotension; Start 09/15/16 at 12:30; Stop 09/15/16 at 18:29; Status DC Acetaminophen (Tylenol) 500 mg 1X PRN PRN PO MILD PAIN / TEMP; Start 09/15/16 at 12:30; Stop 09/16/16 at 12:29; Status DC Diphenhydramine HCl (Benadryl) 25 mg 1X PRN PRN IV ITCHING; Start 09/15/16 at 12:30; Stop 09/16/16 at 12:29; Status DC Diphenhydramine HCl (Benadryl) 25 mg 1X PRN PRN IV ITCHING; Start 09/15/16 at 12:30; Stop 09/16/16 at 12:29; Status DC Labetalol HCl (Normodyne) 10 mg PRN Q1HR PRN IVP SBP > 180; Start 09/15/16 at 12:30; Stop 09/16/16 at 12:29; Status DC Clonidine HCl 0.1 mg 0.1 mg 1X PRN PRN PO SBP > 180; Start 09/15/16 at 12:30; Stop 09/16/16 at 12:29; Status DC Sodium Chloride (Iv Sodium Chloride 0.9% 1000ml Bag) 1,000 ml @ 400 mls/hr Q2H30M PRN IV PATENCY; Start 09/15/16 at 12:16; Stop 09/16/16 at 00:15; Status DC Info (PHARMACY MONITORING -- do not chart) 1 each PRN DAILY PRN MC SEE COMMENTS ; Start 09/15/16 at 12:30; Status UNV Fentanyl 1 patch 1 patch Q3DAYS TD Last administered on 09/21/16t 07:53; Start 09/15/16 at 17:00 Sodium Chloride 1,000 ml @ 1,000 mls/hr Q1H PRN IV hypotension; Start 09/16/16 at 08:34; Stop 09/16/16 at 14:33; Status DC Albumin Human (Albuminar) 200 ml @ 200 mls/hr 1X PRN PRN IV Hypotension; Start 09/16/16 at 08:45; Stop 09/16/16 at 14:44; Status DC Acetaminophen (Tylenol) 500 mg 1X PRN PRN PO MILD PAIN / TEMP; Start 09/16/16 at 08:45; Stop 09/17/16 at 08:44; Status DC Diphenhydramine HCl (Benadryl) 25 mg 1X PRN PRN IV ITCHING; Start 09/16/16 at 08:45; Stop 09/17/16 at 08:44; Status DC Diphenhydramine HCl (Benadryl) 25 mg 1X PRN PRN IV ITCHING; Start 09/16/16 at 08:45; Stop 09/17/16 at 08:44; Status DC Labetalol HCl (Normodyne) 10 mg PRN Q1HR PRN IVP SBP > 180; Start 09/16/16 at 08:45; Stop 09/17/16 at 08:44; Status DC Clonidine HCl 0.1 mg 0.1 mg 1X PRN PRN PO SBP > 180; Start 09/16/16 at 08:45; Stop 09/17/16 at 08:44; Status DC Sodium Chloride (Iv Sodium Chloride 0.9% 1000ml Bag) 1,000 ml @ 400 mls/hr Q2H30M PRN IV PATENCY; Start 09/16/16 at 08:34; Stop 09/16/16 at 20:33; Status DC Info (PHARMACY MONITORING -- do not chart) 1 each PRN DAILY PRN MC SEE COMMENTS ; Start 09/16/16 at 08:45; Status UNV Nystatin 5 ml [id number] Last administered on 09/21/16 07:51; Start 09/16/16 at 13:00 Fentanyl Citrate (Fentanyl 2ml Vial) 25 mcg PRN Q5MIN PRN IV MILD PAIN; Start 09/17/16 at 07:00; Stop 09/18/16 at 06:59; Status DC Fentanyl Citrate (Fentanyl 2ml Vial) 50 mcg PRN Q5MIN PRN IV MODERATE PAIN Last administered on 09/17/16 16:26; Start 09/17/16 at 07:00; Stop 09/18/16 at 06:59; Status DC Morphine Sulfate 1 mg PRN Q10MIN PRN IV SEVERE PAIN; Start 09/17/16 at 07:00; Stop 09/18/16 at 06:59; Status DC Lidocaine HCl 2 ml PRN 1X PRN ID PRIOR TO IV START; Start 09/17/16 at 07:00; Stop 09/18/16 at 06:59; Status DC Hydromorphone HCl (Dilaudid) 0.5 mg PRN Q10MIN PRN IV SEV PAIN, Second choice; Start 09/17/16 at 07:00; Stop 09/18/16 at 06:59; Status DC Prochlorperazine Edisylate 5 mg 5 mg PACU PRN PRN IV NAUSEA, MRX1 Last administered on 09/17/16 15:42; Start 09/17/16 at 07:00; Stop 09/18/16 at 06:59 ; Status DC Sodium Chloride 1,000 ml @ 0 mls/hr Q0M IV ; Start 09/17/16 at 12:00; Stop at 09:11; Status DC Sodium Phosphate/ Dextrose 256.6667 ml @ 64.167 m... 1X ONCE IV Last administered on 09/17/16 14:12; Start 09/17/16 at 11:00; Stop 09/17/16 at 14:59 ; Status DC Cyproheptadine HCl 4 mg 4 mg PRN TID PRN PO ALLERGIES; Start 09/17/16 at 10:45 ; Stop 09/20/16 at 14:00; Status DC Peritoneal Dialysis Solution (Dianeal With 1.5% Dextrose) 2,000 ml @ 671.667 mls/hr 1X ONCE IP Last administered on 09/17/16 18:46; Start 09/17/16 at 10: 45; Stop 09/17/16 at 13:43; Status DC Fentanyl Citrate 100 mcg 100 mcg STK-MED ONCE .ROUTE ; Start 09/17/16 at 13:48; Stop 09/17/16 at 13:49; Status DC Propofol (Diprivan) 20 ml @ As Directed STK-MED ONCE IV ; Start 09/17/16 at 13: 48; Stop 09/17/16 at 13:49; Status DC Dexamethasone Sodium Phosphate (Decadron) 20 mg STK-MED ONCE .ROUTE ; Start at 13:50; Stop 09/17/16 at 13:51; Status DC Ondansetron HCl (Zofran) 4 mg STK-MED ONCE .ROUTE ; Start 09/17/16 at 13:50; Stop 09/17/16 at 13:51; Status DC Povidone Iodine ( Betadine Oint) 28 katie STK-MED ONCE TP Last administered on 14:20; Start 09/17/16 at 14:50; Stop 09/17/16 at 14:51; Status DC Sevoflurane (Ultane) 60 ml STK-MED ONCE IH ; Start 09/17/16 at 15:16; Stop 09/17 at 15:17; Status DC Lidocaine HCl (Lidocaine HCl 2% Abboject) 100 mg STK-MED ONCE .ROUTE ; Start at 15:17; Stop 09/17/16 at 15:18; Status DC Insulin Aspart (Novolog Vial) 6 unit 1X ONCE SQ Last administered on 16:33; Start 09/17/16 at 16:30; Stop 09/17/16 at 16:31; Status DC Insulin Aspart (Novolog Vial) 100 unit STK-MED ONCE SQ ; Start 09/17/16 at 16:29 ; Stop 09/17/16 at 16:30; Status DC Morphine Sulfate (Morphine Ir) 15 mg PRN Q4HRS PRN PO SEVERE PAIN Last administered on 09/18/16 21:15; Start 09/17/16 at 22:00 Lorazepam 1 mg 1 mg 1X ONCE PO Last administered on 09/17/16 22:01; Start at 22:30; Stop 09/17/16 at 22:31; Status DC Sodium Chloride (Iv Sodium Chloride 0.9% 1000ml Bag) 1,000 ml @ 1,000 mls/hr Q1H PRN IV hypotension; Start 09/18/16 at 08:10; Stop 09/18/16 at 14:09; Status DC Sodium Chloride (Normal Saline Flush) 10 ml 1X PRN PRN IV AP catheter pack; Start 09/18/16 at 08:15; Stop 09/19/16 at 08:14; Status DC Sodium Chloride (Normal Saline Flush) 10 ml 1X PRN PRN IV CLOTH BOLT BANDER catheter pack; Start 09/18/16 at 08:15; Stop 09/19/16 at 08:14; Status DC Info (PHARMACY MONITORING -- do not chart) 1 each PRN DAILY PRN MC SEE COMMENTS ; Start 09/18/16 at 08:15; Status UNV Info (PHARMACY MONITORING -- do not chart) 1 each PRN DAILY PRN MC SEE COMMENTS ; Start 09/18/16 at 08:15; Status UNV Vancomycin HCl 1 each 1X ONCE MC Last administered on 09/18/16 16:00; Start 09/18/16 at 16:00; Stop 09/18/16 at 16:01; Status DC Lidocaine/Sodium Bicarbonate 20 ml 20 ml STK-MED ONCE IJ ; Start 09/18/16 at 13: 09; Stop 09/18/16 at 13:10; Status DC Heparin Sodium/ Sodium Chloride 500 ml @ As Directed STK-MED ONCE .ROUTE ; Start 09/18/16 at 13:09; Stop 09/18/16 at 13:10; Status DC Heparin Sodium/ Sodium Chloride 1,000 unit 1X ONCE IART Last administered on 13:39; Start 09/18/16 at 13:30; Stop 09/18/16 at 13:31; Status DC Lidocaine/Sodium Bicarbonate 20 ml 20 ml 1X ONCE IJ Last administered on 13:39; Start 09/18/16 at 13:30; Stop 09/18/16 at 13:31; Status DC Sodium Thiosulfate/ Miscellaneous (Sodium Thiosulfate) 100 ml @ 100 mls/hr 3X/ WEEK@16 IV Last administered on 09/21/16 16:24; Start 09/21/16 at 16:00 Collagenase (Santyl) 1 katie DAILY TP ; Start 09/19/16 at 09:00 Collagenase (Santyl) 1 katie 1X ONCE TP ; Start 09/18/16 at 16:00; Stop 09/18/16 at 16:01; Status DC Cyproheptadine HCl (Periactin) 4 mg TID PO Last administered on 09/21/16 21:28 ; Start 09/20/16 at 14:00 Furosemide (Lasix) 80 mg 1X ONCE IVP Last administered on 09/20/16 10:32; Start 09/20/16 at 09:15; Stop 09/20/16 at 10:26; Status DC Amoxicillin/ Clavulanate Potassium 1 tab 1 tab DAILY PO Last administered on 5/ 1/17at 07:52; Start 09/20/16 at 12:00 Piperacillin Sod/ Tazobactam Sod 4.5 gm/Sodium Chloride 100 ml @ 200 mls/hr 1X ONCE IV ; Start 09/20/16 at 13:45; Stop 09/20/16 at 14:14; Status UNV Sodium Chloride 1,000 ml @ 1,000 mls/hr Q1H PRN IV hypotension; Start 09/21/16 at 10:03; Stop 09/21/16 at 16:02; Status DC Albumin Human (Albuminar) 200 ml @ 200 mls/hr 1X PRN PRN IV Hypotension; Start 09/21/16 at 10:15; Stop 09/21/16 at 16:14; Status DC Sodium Chloride (Normal Saline Flush) 10 ml 1X PRN PRN IV AP catheter pack; Start 09/21/16 at 10:15; Stop 09/22/16 at 10:14; Status DC Sodium Chloride 10 ml 10 ml 1X PRN PRN IV CLOTH BOLT BANDER catheter pack; Start 09/21/16 at 10 :15; Stop 09/22/16 at 10:14; Status DC Sodium Chloride (Iv Sodium Chloride 0.9% 1000ml Bag) 1,000 ml @ 400 mls/hr Q2H30M PRN IV PATENCY; Start 09/21/16 at 10:03; Stop 09/21/16 at 22:02; Status DC Info (PHARMACY MONITORING -- do not chart) 1 each PRN DAILY PRN MC SEE COMMENTS ; Start 09/21/16 at 10:15; Status UNV Active Scripts Active Mupirocin Ointment (Mupirocin) 22 Gm Oint...g. 1 Katie TP TID Vitamin A & D Ointment (Vits A & D/White Pet/Lanolin) 56.7 Gm Oint...g. 1 Katie TP TID Diflucan (Fluconazole) 100 Mg Tablet 100 Mg PO DAILY Allopurinol 100 Mg Tablet 100 Mg PO DAILY Hydrocodone-Apap 5-325 (Hydrocodone Bit/Acetaminophen) 1 Each Tablet 1 Tab PO Q6HRS PRN Eliquis (Apixaban) 2.5 Mg Tablet 2.5 Mg PO DAILY Renvela (Sevelamer Carbonate) 2.4 Gm Powd.pack 2.4 Gm PO TIDWMEALS Miralax (Polyethylene Glycol 3350) 17 Gm Powd.pack 17 Gm PO PRN DAILY PRN Carvedilol 3.125 Mg Tablet 3.125 Mg PO BIDWMEALS Reported Sensipar (Cinacalcet Hcl) 30 Mg Tablet 1 Tab PO DAILY Glimepiride 2 Mg Tablet 4 Mg PO DAILY Novolog (Insulin Aspart) 100 Unit/1 Ml Cartridge 8 Unit SQ TIDAC Atorvastatin Calcium 40 Mg Tablet 1 Tab PO DAILY Vitals/I & O Vital Sign - Last 24 Hours 09/21/16 09/21/16 09/21/16 09/21/16 19:59 20:00 21:29 23:18 Temp 100.9 100.9 Pulse 95 Resp 16 20 18 B/P 122/104 Pulse Ox 91 O2 Delivery Room Air Room Air Room Air Room Air 09/22/16 09/22/16 09/22/16 09/22/16 07:00 07:50 07:58 08:57 Temp 97.9 97.9 Pulse 99 Resp 14 B/P 147/56 Pulse Ox 98 98 O2 Delivery Room Air Nasal Cannula Room Air Nasal Cannula O2 Flow Rate 2.0 2.0 09/22/16 09/22/16 09:57 11:00 Temp 97.7 97.7 Pulse 74 Resp 14 B/P 148/70 Pulse Ox 97 O2 Delivery Nasal Cannula Room Air O2 Flow Rate 2.0 Intake and Output 09/21/16 09/21/16 09/22/16 15:00 23:00 07:00 Intake Total 0 ml 1070 ml Output Total 200 ml 50 ml Balance -200 ml 1020 ml YARED MOSELEY MD September 22, 2016 13:18
[2016-09-22 15:00] VITALS: BP 156/64
--- NOTE | 2016-09-22 17:19 | PDOC ---
SUBJECTIVE ROS ESRD Doing much better overall CVS: no Orthopnea, no CP RESP: no SOB, no LOCO GI: no Nausea, no Vomiting : no Dysuria, no Urgency OBJECTIVE Vital Signs Vital Signs Date Time Temp Pulse Resp B/P Pulse Ox O2 Delivery O2 Flow Rate FiO2 09/22/16 15:00 97.6 100 14 156/64 98 Room Air 97.6 09/22/16 09:57 2.0 I & 0 Intake and Output 09/22/16 07:00 Intake Total 1070 ml Output Total 250 ml Balance 820 ml Intake Oral 110 ml Other 960 ml Output Urine Total 250 ml PHYSICAL EXAM Physical Exam GEN: Awake, Oriented x 2-3 , In no distress EYES: Vision Unchanged, Conjunctiva Normal EN: No EN Drainage, Mucous Membranes dry NECK: no JVD, no JVP, Supple, no Thyromegaly CVS: S1S2, sys Murmur, No Gallop, No Rub,no Edema RESP: no Rales, no Rhonchi,no Acc. Muscle Use GI: BS + ve, NO Bruit, Non Tender, Non Distended : no CVA tenderness, no Suprapubic Tenderness DIAGNOSIS/ASSESSMENT Assessment & Plan ESRD: Current fluid and E-lyte status does not necessitate emergent need for dialysis. Will re-evaluate for dialysis in the am and continue on MWF schedule. 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 See orders for changes. Nutrition - PPN for now, Added Nepro - ? NEEd for TPN if Remains anorexic despite (now) Scheduled Periactin Scrotal cellulitis - better post surgery Discussed Plan of Care with family at bedside extensively with family COMMENT/RELEVANT DATA Meds Current Medications Medications (Trade) Dose Ordered Sig/Dirk Start Time Stop Time Status Last Admin Dose Admin Acetaminophen (Tylenol) 500 mg 1X PRN PRN 09/16/16 08:45 09/17/16 08:44 DC Acetaminophen/ Hydrocodone Bitart (Lortab 5/325) 2 tab PRN Q4HRS PRN 09/09/16 14:15 09/11/16 11:52 DC 09/11/16 04:49 2 TAB Albumin Human (Albuminar) 200 ml @ 200 mls/hr 1X PRN PRN 09/21/16 10:15 09/21/16 16:14 DC Albuterol Sulfate (Ventolin Neb Soln) 2.5 mg PRN Q4HRS PRN 09/10/16 13:30 09/12/16 08:56 2.5 MG Allopurinol (Zyloprim) 100 mg DAILY 09/08/16 09:00 09/21/16 07:52 100 MG Amino Acids/ Glycerin/ Electrolytes (Procalamine) 1,000 ml @ 80 mls/hr [id number] 09/10/16 11:30 09/22/16 10:09 80 MLS/HR Amoxicillin/ Clavulanate Potassium (Augmentin 500/ 125mg) 1 tab DAILY 09/10/16 10:00 09/11/16 10:47 DC 09/10/16 10:43 1 TAB Amoxicillin/ Clavulanate Potassium 1 tab 1 tab DAILY 09/20/16 12:00 09/21/16 07:52 1 TAB Apixaban (Eliquis) 2.5 mg BID 09/08/16 21:00 09/21/16 07:51 2.5 MG Atorvastatin Calcium (Lipitor) 40 mg QHS 09/08/16 21:00 09/20/16 20:29 40 MG Calcium Carbonate/ Glycine (Tums) 500 mg TID PRN 09/10/16 19:15 09/17/16 10:47 DC Carvedilol (Coreg) 3.125 mg BIDWMEALS 09/08/16 08:00 09/20/16 17:07 3.125 MG Cefazolin Sodium (Ancef 1gm Ivpb For Omni) 0 ml @ As Directed STK-MED ONCE 09/09/16 13:23 09/09/16 13:24 DC Cefazolin Sodium 1 gm/Sodium Chloride 500 ml @ 500 mls/hr 1X PERIOP ONCE 09/09/16 09:00 09/09/16 09:59 DC Cellulose 1 each STK-MED ONCE 09/09/16 14:12 09/09/16 14:13 Cancel Cinacalcet (Sensipar) 30 mg DAILY 09/08/16 09:00 09/17/16 10:47 DC 09/16/16 11:40 30 MG Clonidine HCl (Catapres) 0.1 mg 1X PRN PRN 09/16/16 08:45 09/17/16 08:44 DC Clonidine HCl 0.1 mg 0.1 mg 1X PRN PRN 09/09/16 07:30 09/10/16 07:29 DC Collagenase (Santyl) 1 marie 1X ONCE 09/18/16 16:00 09/18/16 16:01 DC Cyproheptadine HCl 4 mg 4 mg PRN TID PRN 09/17/16 10:45 09/20/16 14:00 DC Cyproheptadine HCl (Periactin) 4 mg TID 09/20/16 14:00 09/21/16 21:28 4 MG Darbepoetin Lasha (Aranesp) 60 mcg [id number] 09/08/16 21:00 09/15/16 21:23 60 MCG Dexamethasone Sodium Phosphate (Decadron) 20 mg STK-MED ONCE 09/17/16 13:50 09/17/16 13:51 DC Dextrose (Dextrose 50%-Water Syringe) 12.5 gm PRN Q15MIN PRN 09/07/16 22:30 09/08/16 21:03 25 GM Diphenhydramine HCl (Benadryl) 25 mg 1X PRN PRN 09/16/16 08:45 09/17/16 08:44 DC Docusate Sodium (Colace) 100 mg DAILY 09/08/16 09:00 09/21/16 07:52 100 MG Fentanyl (Duragesic 12mcg/ Hr Patch) 1 patch Q3DAYS 09/15/16 17:00 09/21/16 07:53 1 PATCH Fentanyl (Duragesic 50mcg/ Hr Patch) 1 patch Q3DAYS 09/15/16 11:00 09/15/16 16:57 DC 09/15/16 12:25 1 PATCH Fentanyl Citrate (Fentanyl 2ml Vial) 50 mcg PRN Q5MIN PRN 09/17/16 07:00 09/18/16 06:59 DC 09/17/16 16:26 50 MCG Fentanyl Citrate 100 mcg 100 mcg STK-MED ONCE 09/17/16 13:48 09/17/16 13:49 DC Fluconazole (Diflucan) 100 mg DAILY 09/08/16 09:00 09/21/16 07:51 100 MG Furosemide (Lasix) 80 mg 1X ONCE 09/20/16 09:15 09/20/16 10:26 DC 09/20/16 10:32 80 MG Glimepiride (Amaryl) 4 mg DAILY 09/08/16 09:00 09/09/16 13:46 DC 09/08/16 07:59 4 MG Haloperidol Lactate (Haldol) 5 mg PRN Q6HRS PRN 09/15/16 12:15 09/22/16 06:08 5 MG Heparin Sodium (Porcine) 5000 unit/Sodium Chloride 505 ml @ 505 mls/hr 1X PERIOP ONCE 09/09/16 09:00 09/09/16 09:59 DC Heparin Sodium/ Sodium Chloride 1,000 unit 1X ONCE 09/18/16 13:30 09/18/16 13:31 DC 09/18/16 13:39 1,000 UNIT Hydromorphone HCl (Dilaudid) 0.5 mg PRN Q10MIN PRN 09/17/16 07:00 09/18/16 06:59 DC Hydromorphone HCl 1 mg 1 mg 1X ONCE 09/07/16 21:00 09/07/16 21:01 DC 09/07/16 20:59 1 MG Info (Anti-Coagulation Monitoring By Pharmacy) 1 each PRN DAILY PRN 09/07/16 23:45 09/21/16 10:59 1 EACH Info (PHARMACY MONITORING -- do not chart) 1 each PRN DAILY PRN 09/21/16 10:15 UNV Info 1 each 1 each PRN DAILY PRN 09/14/16 10:15 Insulin Aspart (Novolog Vial) 100 unit STK-MED ONCE 09/17/16 16:29 09/17/16 16:30 DC Insulin Aspart (Novolog) 5 units TIDAC 09/10/16 11:30 09/22/16 13:17 DC 09/22/16 09:07 5 UNITS Insulin Detemir (Levemir) 15 units QHS 09/11/16 21:00 09/20/16 20:54 15 UNITS Labetalol HCl (Normodyne) 10 mg PRN Q1HR PRN 09/16/16 08:45 09/17/16 08:44 DC Lidocaine (Lidoderm) 1 patch DAILY 09/13/16 19:00 09/13/16 19:16 DC Lidocaine HCl (Lidocaine HCl 2% Abboject) 100 mg STK-MED ONCE 09/17/16 15:17 09/17/16 15:18 DC Lidocaine HCl (Xylocaine 2% Topical 30gm Tube) 1 marie TID 09/13/16 21:00 09/18/16 08:05 DC 09/16/16 20:37 1 MARIE Lidocaine/Sodium Bicarbonate (Buffered Lidocaine 1%) 20 ml STK-MED ONCE 09/18/16 13:09 09/18/16 13:10 DC Lidocaine/Sodium Bicarbonate 20 ml 20 ml 1X ONCE 09/18/16 13:30 09/18/16 13:31 DC 09/18/16 13:39 3 ML Lorazepam (Ativan) 1 mg 1X ONCE 09/17/16 22:30 09/17/16 22:31 DC 09/17/16 22:01 1 MG Magnesium Sulfate/ Dextrose 50 ml @ 25 mls/hr PRN DAILY PRN 09/10/16 10:45 Meropenem 1 gm/ Sodium Chloride 100 ml @ 200 mls/hr Q8HRS 09/07/16 22:00 UNV Meropenem/Sodium Chloride (Merrem/Iv Sodium Chloride 0.9% 50ml) 50 ml @ 100 mls/hr QHS 09/07/16 21:00 09/08/16 07:59 DC 09/07/16 21:05 100 MLS/HR Metoclopramide HCl 5 mg 5 mg PRN Q6HRS PRN 09/11/16 10:45 09/11/16 20:55 5 MG Midazolam HCl (Versed) 2 mg STK-MED ONCE 09/09/16 14:06 09/09/16 14:07 DC Morphine Sulfate (Morphine Ir) 15 mg PRN Q4HRS PRN 09/17/16 22:00 09/18/16 21:15 15 MG Nystatin 5 ml [id number] 09/16/16 13:00 09/21/16 07:51 5 ML Ondansetron HCl (Zofran) 4 mg STK-MED ONCE 09/17/16 13:50 09/17/16 13:51 DC Oxycodone/ Acetaminophen 1 tab 1 tab PRN Q4HRS PRN 09/11/16 12:00 09/22/16 08:57 1 TAB Pantoprazole Sodium (Protonix) 40 mg DAILYAC 09/10/16 20:00 09/21/16 07:51 40 MG Papaverine HCl 60 mg STK-MED ONCE 09/09/16 14:12 09/09/16 14:13 DC Peritoneal Dialysis Solution (Dianeal With 1.5% Dextrose) 2,000 ml @ 671.667 mls/hr 1X ONCE 09/17/16 10:45 09/17/16 13:43 DC 09/17/16 18:46 671.667 MLS/HR Piperacillin Sod/ Tazobactam Sod 4.5 gm/Sodium Chloride 100 ml @ 200 mls/hr 1X ONCE 09/20/16 13:45 09/20/16 14:14 UNV Piperacillin Sod/ Tazobactam Sod/ Sodium Chloride (Zosyn/Iv Sodium Chloride 0.9% 50ml) 50 ml @ 100 mls/hr Q8HRS 09/11/16 14:00 09/20/16 11:56 DC 09/20/16 05:49 100 MLS/HR Polyethylene Glycol (miraLAX PACKET) 17 gm PRN DAILY PRN 09/07/16 22:30 Potassium Chloride (Klor-Con) 20 meq 1X ONCE 09/07/16 23:00 09/07/16 23:01 DC 09/08/16 01:38 20 MEQ Povidone Iodine ( Betadine Oint) 28 marie STK-MED ONCE 09/17/16 14:50 09/17/16 14:51 DC 09/17/16 14:20 28 MARIE Prochlorperazine Edisylate (Compazine) 10 mg PRN Q6HRS PRN 09/11/16 10:30 09/11/16 10:49 10 MG Prochlorperazine Edisylate 5 mg 5 mg PACU PRN PRN 09/17/16 07:00 09/18/16 06:59 DC 09/17/16 15:42 5 MG Propofol (Diprivan) 20 ml @ As Directed STK-MED ONCE 09/17/16 13:48 09/17/16 13:49 DC Sevelamer Carbonate (Renvela) 2,400 mg TIDWMEALS 09/08/16 12:00 09/19/16 08:43 2,400 MG Sevoflurane (Ultane) 60 ml STK-MED ONCE 09/17/16 15:16 09/17/16 15:17 DC Sodium Thiosulfate 25 gm 25 gm 3X/WEEK 09/11/16 09:00 UNV Sodium Thiosulfate 25 gm/ Sodium Chloride 100 ml @ 100 mls/hr 3X/WEEK@16 09/11/16 16:00 09/18/16 18:00 DC 09/18/16 15:11 100 MLS/HR Sodium Thiosulfate/ Miscellaneous (Sodium Thiosulfate) 100 ml @ 100 mls/hr 3X/WEEK@16 09/21/16 16:00 09/21/16 16:24 100 MLS/HR Sodium Thiosulfate/ Sodium Chloride (Sodium Thiosulfate/Iv Sodium Chloride 0.9% 100ml) 100 ml @ 100 mls/hr 1X ONCE 09/12/16 16:00 09/12/16 16:59 DC 09/12/16 16:00 100 MLS/HR Sodium Chloride (Iv Sodium Chloride 0.9% 500ml Bag) 500 ml @ 500 mls/hr 1X ONCE 09/07/16 21:00 09/07/16 21:59 DC 09/07/16 21:04 500 MLS/HR Sodium Chloride (Iv Sodium Chloride 0.9% 1000ml Bag) 1,000 ml @ 400 mls/hr Q2H30M PRN 09/21/16 10:03 09/21/16 22:02 DC Sodium Chloride (Normal Saline Flush) 10 ml 1X PRN PRN 09/21/16 10:15 09/22/16 10:14 DC Sodium Chloride 10 ml 10 ml 1X PRN PRN 09/21/16 10:15 09/22/16 10:14 DC Sodium Phosphate/ Dextrose 256.6667 ml @ 64.167 m... 1X ONCE 09/17/16 11:00 09/17/16 14:59 DC 09/17/16 14:12 64.167 MLS/HR Tramadol HCl (Ultram) 50 mg PRN Q6HRS PRN 09/10/16 13:45 09/11/16 08:39 50 MG Vancomycin HCl 1 each 1X ONCE 09/18/16 16:00 09/18/16 16:01 DC 09/18/16 16:00 1 EACH Vancomycin HCl 500 mg/Sodium Chloride 100 ml @ 100 mls/hr 1X ONCE 09/14/16 13:00 09/14/16 13:59 DC 09/14/16 15:30 100 MLS/HR Vancomycin HCl 1 each 1 each 1X ONCE 09/11/16 21:30 09/11/16 21:30 DC Vancomycin HCl/ Sodium Chloride (Iv Sodium Chloride 0.9% 100ml) 100 ml @ 100 mls/hr QMWF 09/16/16 16:00 09/20/16 11:56 DC 09/18/16 17:52 100 MLS/HR Vancomycin HCl/ Sodium Chloride (Iv Sodium Chloride 0.9% 500ml Bag) 500 ml @ 250 mls/hr Q48H 09/09/16 22:00 09/09/16 22:00 DC Vitamin A/Vitamin D (Vitamin A & D Ointment) 1 marie TID 09/08/16 09:00 09/18/16 08:05 DC 09/16/16 20:37 1 MARIE Lab Laboratory Tests Test 09/21/16 21:22 09/22/16 06:08 09/22/16 07:23 09/22/16 11:41 Glucose (Fingerstick) 150mg/dL (70-99) 208mg/dL (70-99) 197mg/dL (70-99) White Blood Count 8.5x10^3/uL (4.0-11.0) Red Blood Count 2.86x10^6/uL (4.30-5.70) Hemoglobin 9.1g/dL (13.0-17.5) Hematocrit 27.5% (39.0-53.0) Mean Corpuscular Volume 96fL (79-100) Mean Corpuscular Hemoglobin 32pg (25-35) Mean Corpuscular Hemoglobin Concent 33g/dL (31-37) Red Cell Distribution Width 17.5% (11.5-14.5) Platelet Count 234x10^3/uL (140-400) Neutrophils (%) (Auto) 79% (31-73) Lymphocytes (%) (Auto) 8% (24-48) Monocytes (%) (Auto) 9% (0-9) Eosinophils (%) (Auto) 3% (0-3) Basophils (%) (Auto) 1% (0-3) Neutrophils # (Auto) 6.7x10^3uL (1.8-7.7) Lymphocytes # (Auto) 0.7x10^3/uL (1.0-4.8) Monocytes # (Auto) 0.8x10^3/uL (0.0-1.1) Eosinophils # (Auto) 0.2x10^3/uL (0.0-0.7) Basophils # (Auto) 0.1x10^3/uL (0.0-0.2) Sodium Level 137mmol/L (136-145) Potassium Level 4.4mmol/L (3.5-5.1) Chloride Level 94mmol/L (98-107) Carbon Dioxide Level 22mmol/L (21-32) Anion Gap 21 (6-14) Blood Urea Nitrogen 37mg/dL (8-26) Creatinine 3.5mg/dL (0.7-1.3) Estimated GFR (Cockcroft-Gault) 16.7 Glucose Level 191mg/dL (70-99) Calcium Level 8.9mg/dL (8.5-10.1) Test 09/22/16 16:23 Glucose (Fingerstick) 228mg/dL (70-99) FILIPPO RODRIGUES MD September 22, 2016 17:19
[2016-09-22 19:00] VITALS: BP 141/81
[2016-09-22] MEDS: fentaNYL PF VIAL 100 MCG/2 ML VIAL IV PRN (20:58)
[2016-09-22] MEDS: ATORVASTATIN CALCIUM 40 MG TABLET. PO SCH (21:00)
[2016-09-22] MEDS: DARBEPOETIN ALFA 60 MCG/0.3 ML DISP.SYRIN. SQ SCH (21:02)
[2016-09-22] MEDS: INSULIN DETEMIR 300 UNITS/3 ML INSULN.PEN. SQ SCH (21:06)
[2016-09-22 23:13] VITALS: BP 125/64
[2016-09-23] MEDS: HALOPERIDOL LACTATE 5 MG/ML VIAL. IVP PRN ×2 (00:16→08:27)
[2016-09-23 03:14] VITALS: BP 144/63
[2016-09-23 06:44] LABS: CALCIUM 8.8 mg/dL (8.5-10.1); CREATININE 4.5 mg/dL (0.7-1.3); GFR 12.5; POTASSIUM 4.5 mmol/L (3.5-5.1)
[2016-09-23 06:47] LABS: BASO # 0.1 x10^3/uL (0.0-0.2); BASO % 1 % (0-3); EOS % 5 % (0-3); HEMATOCRIT 24.6 % (39.0-53.0); HEMOGLOBIN 8.4 g/dL (13.0-17.5); LYMPH # 0.9 x10^3/uL (1.0-4.8); LYMPH % 12 % (24-48); MEAN CORPUSCULAR HEMOGLOBIN 32 pg (25-35); MEAN CORPUSCULAR HGB CONC 34 g/dL (31-37); MEAN CORPUSCULAR VOLUME 94 fL (79-100); MONO % 10 % (0-9); NEUT % 72 % (31-73); PLATELET COUNT 243 x10^3/uL (140-400); RED BLOOD COUNT 2.62 x10^6/uL (4.30-5.70); RED CELL DISTRIBUTION WIDTH 17.2 % (11.5-14.5); WHITE BLOOD COUNT 8.2 x10^3/uL (4.0-11.0)
[2016-09-23 07:28] VITALS: BP 133/81
[2016-09-23] MEDS: INSULIN ASPART 300 UNITS/3 ML INSULN.PEN SQ SCH ×4 (07:30→21:00)
[2016-09-23] MEDS: PANTOPRAZOLE 40 MG TABLET.DR. PO SCH ×2 (07:30→08:12)
[2016-09-23] MEDS: CARVEDILOL 3.125 MG TABLET. PO SCH ×2 (08:00→17:00)
[2016-09-23] MEDS: SEVELAMER CARBONATE 800 MG TABLET. PO SCH ×3 (08:00→17:00)
[2016-09-23] MEDS: NYSTATIN 100,000 UNITS/ML 5 ML ORAL.SUSP. SWSW SCH ×5 (08:10→21:31)
[2016-09-23] MEDS: APIXABAN 2.5 MG TABLET. PO SCH ×3 (08:10→21:31)
[2016-09-23] MEDS: FLUCONAZOLE 100 MG TABLET. PO SCH ×2 (08:11→08:54)
[2016-09-23] MEDS: oxyCODONE/APAP 5/325 1 TAB TABLET PO PRN (08:11)
[2016-09-23] MEDS: DOCUSATE SODIUM 100 MG CAPSULE. PO SCH ×2 (08:12→08:54)
[2016-09-23] MEDS: AMOXICILLIN/K CLAV 500/125MG TABLET. PO SCH ×2 (08:12→08:54)
[2016-09-23] MEDS: CYPROHEPTADINE 4 MG TABLET. PO SCH ×4 (08:12→21:31)
[2016-09-23] MEDS: ALLOPURINOL 100 MG TABLET. PO SCH ×2 (08:12→08:54)
[2016-09-23] MEDS: COLLAGENASE 250 UNIT/GM TOPICAL OINTMENT 30GM TUBE. TP SCH (08:23)
[2016-09-23] MEDS ORDERED: IV NORMAL SALINE 1000ML BAG 1,000 ML IV PRN ×2 (08:40)
[2016-09-23] MEDS ORDERED: ALBUMIN HUMAN 25% 200 ML IV PRN (08:45)
[2016-09-23] MEDS ORDERED: DIALYSIS PATIENT. MC PRN (08:45)
[2016-09-23] MEDS ORDERED: 0.9 % SODIUM CHLORIDE 10 ML DISP.SYRIN. IV PRN ×2 (08:45)
[2016-09-23] MEDS ORDERED: AMOX1TAB10 PO (11:25)
[2016-09-23] MEDS ORDERED: INSU100I27 SQ (11:25)
[2016-09-23] MEDS ORDERED: CYPR4TAB PO (11:25)
[2016-09-23] MEDS ORDERED: FLUC100T PO (11:25)
[2016-09-23] MEDS: fentaNYL PF VIAL 100 MCG/2 ML VIAL IV PRN ×2 (11:29→13:52)
--- NOTE | 2016-09-23 11:57 | PDOC ---
Dialysis Progress Note Dialysis Note Dialysis Note Seen on Hemodialysis, tolerating treatment Well Vitals on Hemodialysis at time of my visit: 139/69 107 afeb General Appearance: Confused Neck: No JVD or JVP Chest: CTA Oscar Heart: S1 S2 - occ tachy Abdomen - Soft NTND Extremities - No Edema ESRD: Dialysis as below F 180 NR 3.5 Hrs 3 K 2.5 Ca 140 Na 35 HC03 Qb 350 + Qd 500+ Heparin 0 Units Uf 2-3 Kgs or to dry weight as tolerated May give 25-50 gms of 25% Albumin if needed to maintain Hemodynamic stability Treatment plan reviewed and discussed with mental retardation nurse Vitals Vital Signs Vital Signs Date Time Temp Pulse Resp B/P Pulse Ox O2 Delivery O2 Flow Rate FiO2 09/23/16 11:29 93 Room Air 09/23/16 07:28 97.9 104 18 133/81 97.9 09/22/16 09:57 2.0 Labs Last Labs Laboratory Tests Test 09/21/16 11:58 09/21/16 16:53 09/21/16 21:22 09/22/16 06:08 Glucose (Fingerstick) 86mg/dL (70-99) 118mg/dL (70-99) 150mg/dL (70-99) White Blood Count 8.5x10^3/uL (4.0-11.0) Red Blood Count 2.86x10^6/uL (4.30-5.70) Hemoglobin 9.1g/dL (13.0-17.5) Hematocrit 27.5% (39.0-53.0) Mean Corpuscular Volume 96fL (79-100) Mean Corpuscular Hemoglobin 32pg (25-35) Mean Corpuscular Hemoglobin Concent 33g/dL (31-37) Red Cell Distribution Width 17.5% (11.5-14.5) Platelet Count 234x10^3/uL (140-400) Neutrophils (%) (Auto) 79% (31-73) Lymphocytes (%) (Auto) 8% (24-48) Monocytes (%) (Auto) 9% (0-9) Eosinophils (%) (Auto) 3% (0-3) Basophils (%) (Auto) 1% (0-3) Neutrophils # (Auto) 6.7x10^3uL (1.8-7.7) Lymphocytes # (Auto) 0.7x10^3/uL (1.0-4.8) Monocytes # (Auto) 0.8x10^3/uL (0.0-1.1) Eosinophils # (Auto) 0.2x10^3/uL (0.0-0.7) Basophils # (Auto) 0.1x10^3/uL (0.0-0.2) Sodium Level 137mmol/L (136-145) Potassium Level 4.4mmol/L (3.5-5.1) Chloride Level 94mmol/L (98-107) Carbon Dioxide Level 22mmol/L (21-32) Anion Gap 21 (6-14) Blood Urea Nitrogen 37mg/dL (8-26) Creatinine 3.5mg/dL (0.7-1.3) Estimated GFR (Cockcroft-Gault) 16.7 Glucose Level 191mg/dL (70-99) Calcium Level 8.9mg/dL (8.5-10.1) Test 09/22/16 07:23 09/22/16 11:41 09/22/16 16:23 09/22/16 20:47 Glucose (Fingerstick) 208mg/dL (70-99) 197mg/dL (70-99) 228mg/dL (70-99) 218mg/dL (70-99) Test 09/23/16 06:16 09/23/16 08:08 White Blood Count 8.2x10^3/uL (4.0-11.0) Red Blood Count 2.62x10^6/uL (4.30-5.70) Hemoglobin 8.4g/dL (13.0-17.5) Hematocrit 24.6% (39.0-53.0) Mean Corpuscular Volume 94fL (79-100) Mean Corpuscular Hemoglobin 32pg (25-35) Mean Corpuscular Hemoglobin Concent 34g/dL (31-37) Red Cell Distribution Width 17.2% (11.5-14.5) Platelet Count 243x10^3/uL (140-400) Neutrophils (%) (Auto) 72% (31-73) Lymphocytes (%) (Auto) 12% (24-48) Monocytes (%) (Auto) 10% (0-9) Eosinophils (%) (Auto) 5% (0-3) Basophils (%) (Auto) 1% (0-3) Neutrophils # (Auto) 5.9x10^3uL (1.8-7.7) Lymphocytes # (Auto) 0.9x10^3/uL (1.0-4.8) Monocytes # (Auto) 0.8x10^3/uL (0.0-1.1) Eosinophils # (Auto) 0.4x10^3/uL (0.0-0.7) Basophils # (Auto) 0.1x10^3/uL (0.0-0.2) Sodium Level 136mmol/L (136-145) Potassium Level 4.5mmol/L (3.5-5.1) Chloride Level 93mmol/L (98-107) Carbon Dioxide Level 21mmol/L (21-32) Anion Gap 22 (6-14) Blood Urea Nitrogen 53mg/dL (8-26) Creatinine 4.5mg/dL (0.7-1.3) Estimated GFR (Cockcroft-Gault) 12.5 Glucose Level 165mg/dL (70-99) Calcium Level 8.8mg/dL (8.5-10.1) Glucose (Fingerstick) 155mg/dL (70-99) Laboratory Tests Test 09/22/16 16:23 09/22/16 20:47 09/23/16 06:16 09/23/16 08:08 Glucose (Fingerstick) 228mg/dL (70-99) 218mg/dL (70-99) 155mg/dL (70-99) White Blood Count 8.2x10^3/uL (4.0-11.0) Red Blood Count 2.62x10^6/uL (4.30-5.70) Hemoglobin 8.4g/dL (13.0-17.5) Hematocrit 24.6% (39.0-53.0) Mean Corpuscular Volume 94fL (79-100) Mean Corpuscular Hemoglobin 32pg (25-35) Mean Corpuscular Hemoglobin Concent 34g/dL (31-37) Red Cell Distribution Width 17.2% (11.5-14.5) Platelet Count 243x10^3/uL (140-400) Neutrophils (%) (Auto) 72% (31-73) Lymphocytes (%) (Auto) 12% (24-48) Monocytes (%) (Auto) 10% (0-9) Eosinophils (%) (Auto) 5% (0-3) Basophils (%) (Auto) 1% (0-3) Neutrophils # (Auto) 5.9x10^3uL (1.8-7.7) Lymphocytes # (Auto) 0.9x10^3/uL (1.0-4.8) Monocytes # (Auto) 0.8x10^3/uL (0.0-1.1) Eosinophils # (Auto) 0.4x10^3/uL (0.0-0.7) Basophils # (Auto) 0.1x10^3/uL (0.0-0.2) Sodium Level 136mmol/L (136-145) Potassium Level 4.5mmol/L (3.5-5.1) Chloride Level 93mmol/L (98-107) Carbon Dioxide Level 21mmol/L (21-32) Anion Gap 22 (6-14) Blood Urea Nitrogen 53mg/dL (8-26) Creatinine 4.5mg/dL (0.7-1.3) Estimated GFR (Cockcroft-Gault) 12.5 Glucose Level 165mg/dL (70-99) Calcium Level 8.8mg/dL (8.5-10.1) Assessment Assessment Problems Medical Problems: (1) ESRD (end stage renal disease) Status: Acute (2) Open wound of scrotum Status: Acute Problems: Plan Plan of Care Problems Medical Problems: (1) Open wound of scrotum Status: Acute FILIPPO RODRIGUES MD September 23, 2016 11:57
--- NOTE | 2016-09-23 12:10 | PDOC3 ---
Discharge Summary [facility] Date of Admission: Sep 07, 2016 Discharge Date: September 23, 2016 Admitting Diagnosis -Cellulitis of the scrotum -CAD -CHF -MO -Peripheral neuropathy -Tonsillectomy -Cataract extraction -CABG -Hyperlipidemia -Atrial fibrillation -Hypertension -Colonic polyps -GERD -Dialysis -DM -Parathyroid disease -Smoking -Anemia -Skin cancer -Chronic renal failure plan: fu with id, on augmentin fu with renal, on HD now, was on PD fu with uro, post i and d, penis wound still looks bad, cont wound care SW fu , need to dc to LTAC or SNF LOW PO intake, on PPN, dc aspart given low po intake PTOT History of Present Illness History of Present Illness Patient seen and evaluated at the bedside. No acute events overnight. Per , patient's pain is managed with the medications. Nursing noted patient's breathing has been swallow this AM, yet he is saturating 100% without any signs of respiratory distress. Dressings in place. d/w nurse about plan of care. mental status not improving as expected, pain seems better controlled, pt sleeps most of the time, agitated sometimes. Vitals Vitals Vital Signs Date Time Temp Pulse Resp B/P Pulse Ox O2 Delivery O2 Flow Rate FiO2 09/22/16 11:00 97.7 74 14 148/70 97 Room Air 97.7 09/22/16 09:57 2.0 Physical Exam Problems: Final Diagnosis CONSULTS id renal uro PAT vascular Brief Hospital Course Mr. Ruiz is a 85 old M, sent from home for the scrotum celluitits, for which he got local wound care which didnot help much , iv abx, and then got i and d FROM uro, the wound is better, not healing well , but necrotic tissue is much less. 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 He has been on PD at home, but Cr still high, then change to HD during this admission, but pt refused HD from time to time. Pt developed delerium, likely 2/2 ESRD , uremia, and sepsis, not improving, hold most pain meds. PAt Consulted, DNR, but not hospice yet. pt sleepy most of time, agitated sometimes, low po intake, on PPN, cont HD, po abx x5 days. dc to LTAC. dc time 40min. General: Cooperative, No acute distress, Other (somnolent, with swallow breathing. responds to voice, but limited in following commands. ) Heart: Regular rate, Normal S1, Normal S2, No murmurs Lungs: Clear, Other (swallow breathing with prolonged time between inspirations , not apneic. Negative chest retractions and/or other accessory muscle use. ) Abdomen: Soft, No tenderness Extremities: No clubbing, No edema Skin: No rashes, No breakdown, Other (dressing intact clean, dry, without saturation. ) Patient History: Problems: Disposition LTAC CONDITION AT DISCHARGE: Improved Diet renal Scheduled Allopurinol (Allopurinol) 100 MG PO DAILY Amoxicillin/Potassium Clav (Amox Tr-K Clv 500-125 Mg Tab) 1 TAB PO DAILY Apixaban (Eliquis) 2.5 MG PO DAILY Atorvastatin Calcium (Atorvastatin Calcium) 1 TAB PO DAILY (Reported) Carvedilol (Carvedilol) 3.125 MG PO BIDWMEALS Cinacalcet Hcl (Sensipar) 1 TAB PO DAILY (Reported) Cyproheptadine Hcl (Cyproheptadine Hcl) 4 MG PO TID Fluconazole (Diflucan) 100 MG PO DAILY Glimepiride (Glimepiride) 4 MG PO DAILY (Reported) Insulin Detemir (Levemir Flextouch) 15 UNITS SQ QHS Sevelamer Carbonate (Renvela) 2.4 GM PO TIDWMEALS Vits A & D/White Pet/Lanolin (Vitamin A & D Ointment) 1 KEVON TP TID Scheduled PRN Hydrocodone Bit/Acetaminophen (Hydrocodone-Apap 5-325 ) 1 TAB PO Q6HRS PRN PRN PAIN Discontinued Medications Fluconazole (Diflucan) 100 MG PO DAILY Insulin Aspart (Novolog) 8 UNIT SQ TIDAC (Reported) Mupirocin (Mupirocin Ointment) 1 KEVON TP TID Polyethylene Glycol 3350 (Miralax) 17 GM PO PRN DAILY PRN PRN CONSTIPATION Follow Up fu with pcp in 2 weeks YARED MOSELEY MD September 23, 2016 12:09
[2016-09-23] MEDS: AMINO AC 3%/ELECTROLYTE/GLYCER 1,000 ML IV SCH (13:09)
[2016-09-23 14:54] VITALS: BP 145/73
[2016-09-23] MEDS: SODIUM THIOSULFATE 25 GM in TOTAL VOLUME 0 ML IV SCH (15:40)
--- NOTE | 2016-09-23 17:14 | PDOC2 ---
PALLIATIVE CARE Palliative Care Note Palliative Care Patient drowsy. Periods of combativeness and brief periods of being alert with family members. Met with family; Leroy Salinas, Ja, Claudette, Jada; Greg per phone; Rekha not in attendance. Reviewed current medical condition; Continuing to receive dialysis; poor po intake. no BM since 09/17; pain managed with po medication; needed Haldol x2 last 24 hours. Patient stating at times he wants to get better. Family not sure if he understands what it will take to improve and the effort he will need to put out. They want to make sure they have given their father every opportunity to improve. "Not ready to throw in the towel" They would like to address the low albumin with IV albumin. TPN to see if nutrition can be improved, suppository or enema for constipation; liberalize his diet to see if he will eat. Discussed options for discharge: [facility] and [facility]. Will await decision on [facility]. Confirmed Code Status; DNR/DNI Will ask Father Jose Maria to speak with patient again. Family has shared that patient has expressed his fear of dying. Family concerned about their father's periods of combativeness. "This is not like him" This likely due to encephalopathy and periods of delirium. Family is till hoping patient will provide more input on his wishes. Reminded patient has provided some instruction with his Advanced Directive. and that he made not be able to provide that instruction they are looking for. HUSSEIN OSCAR September 23, 2016 17:14
[2016-09-23] MEDS ORDERED: BISACODYL 10 MG SUPP.RECT. PR PRN (18:30)
[2016-09-23 19:36] VITALS: BP 148/74
[2016-09-23] MEDS: ATORVASTATIN CALCIUM 40 MG TABLET. PO SCH (21:32)
[2016-09-23] MEDS: INSULIN DETEMIR 300 UNITS/3 ML INSULN.PEN. SQ SCH (21:51)
[2016-09-23 23:01] VITALS: BP 137/56
[2016-09-24] MEDS: HALOPERIDOL LACTATE 5 MG/ML VIAL. IVP PRN (01:13)
[2016-09-24] MEDS: AMINO AC 3%/ELECTROLYTE/GLYCER 1,000 ML IV SCH ×2 (01:14→13:00)
[2016-09-24 02:35] VITALS: BP 131/59
[2016-09-24 07:00] VITALS: BP 137/58
[2016-09-24] MEDS: PANTOPRAZOLE 40 MG TABLET.DR. PO SCH (07:30)
[2016-09-24] MEDS: INSULIN ASPART 300 UNITS/3 ML INSULN.PEN SQ SCH ×3 (07:30→17:31)
[2016-09-24] MEDS: SEVELAMER CARBONATE 800 MG TABLET. PO SCH ×3 (08:00→15:00)
[2016-09-24 08:09] LABS: BASO # 0.1 x10^3/uL (0.0-0.2); BASO % 1 % (0-3); EOS % 3 % (0-3); HEMATOCRIT 24.2 % (39.0-53.0); HEMOGLOBIN 8.3 g/dL (13.0-17.5); LYMPH # 0.9 x10^3/uL (1.0-4.8); LYMPH % 11 % (24-48); MEAN CORPUSCULAR HEMOGLOBIN 33 pg (25-35); MEAN CORPUSCULAR HGB CONC 34 g/dL (31-37); MEAN CORPUSCULAR VOLUME 96 fL (79-100); MONO % 11 % (0-9); NEUT % 74 % (31-73); PLATELET COUNT 225 x10^3/uL (140-400); RED BLOOD COUNT 2.53 x10^6/uL (4.30-5.70); RED CELL DISTRIBUTION WIDTH 17.2 % (11.5-14.5); WHITE BLOOD COUNT 7.8 x10^3/uL (4.0-11.0)
[2016-09-24] MEDS: ALLOPURINOL 100 MG TABLET. PO SCH (09:00)
[2016-09-24] MEDS: NYSTATIN 100,000 UNITS/ML 5 ML ORAL.SUSP. SWSW SCH ×3 (09:00→17:25)
[2016-09-24] MEDS: DOCUSATE SODIUM 100 MG CAPSULE. PO SCH (09:00)
[2016-09-24 10:12] LABS: CALCIUM 8.9 mg/dL (8.5-10.1); CREATININE 3.4 mg/dL (0.7-1.3); GFR 17.2; POTASSIUM 4.4 mmol/L (3.5-5.1)
[2016-09-24 11:00] VITALS: BP 137/80
--- NOTE | 2016-09-24 11:32 | PDOC3 ---
Discharge Summary [facility] Date of Admission: Sep 07, 2016 Discharge Date: September 24, 2016 Admitting Diagnosis Cellulitis of the scrotum -CAD -CHF -CT -Peripheral neuropathy -Tonsillectomy -Cataract extraction -CABG -Hyperlipidemia -Atrial fibrillation -Hypertension -Colonic polyps -GERD -Dialysis -DM -Parathyroid disease -Smoking -Anemia -Skin cancer -Chronic renal failure Problems: Final Diagnosis CONSULTS id renal uro HUSSEIN vascular Brief Hospital Course Brief Hospital Course Mr. Ruiz is a 85 old M, sent from home for the scrotum celluitits, for which he got local wound care which didnot help much , iv abx, and then got i and d FROM uro, the wound is better, not healing well , but necrotic tissue is much less. 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 He has been on PD at home, but Cr still high, then change to HD during this admission, but pt refused HD from time to time. Pt developed delerium, likely 2/2 ESRD , uremia, and sepsis, not improving, hold most pain meds. PAt Consulted, DNR, but not hospice yet. pt sleepy most of time, agitated sometimes, low po intake, on PPN, cont HD, po abx x5 days. dc to LTAC. dc time 40min. General: Cooperative, No acute distress, Other (somnolent, with swallow breathing. responds to voice, but limited in following commands. ) Heart: Regular rate, Normal S1, Normal S2, No murmurs Lungs: Clear, Other (swallow breathing with prolonged time between inspirations , not apneic. Negative chest retractions and/or other accessory muscle use. ) Abdomen: Soft, No tenderness Extremities: No clubbing, No edema Skin: No rashes, No breakdown, Other (dressing intact clean, dry, without saturation. ) Patient History: Problems: Disposition ltac CONDITION AT DISCHARGE: Improved Diet RENAL Scheduled Allopurinol (Allopurinol), 100 MG PO DAILY Amoxicillin/Potassium Clav (Amox Tr-K Clv 500-125 Mg Tab), 1 TAB PO DAILY Apixaban (Eliquis), 2.5 MG PO DAILY Atorvastatin Calcium (Atorvastatin Calcium), 1 TAB PO DAILY, (Reported) Carvedilol (Carvedilol), 3.125 MG PO BIDWMEALS Cinacalcet Hcl (Sensipar), 1 TAB PO DAILY, (Reported) Cyproheptadine Hcl (Cyproheptadine Hcl), 4 MG PO TID Fluconazole (Diflucan), 100 MG PO DAILY Glimepiride (Glimepiride), 4 MG PO DAILY, (Reported) Insulin Detemir (Levemir Flextouch), 15 UNITS SQ QHS Sevelamer Carbonate (Renvela), 2.4 GM PO TIDWMEALS Vits A & D/White Pet/Lanolin (Vitamin A & D Ointment), 1 KEVON TP TID Scheduled PRN Hydrocodone Bit/Acetaminophen (Hydrocodone-Apap 5-325 ), 1 TAB PO Q6HRS PRN for PAIN Discontinued Medications Fluconazole (Diflucan), 100 MG PO DAILY Insulin Aspart (Novolog), 8 UNIT SQ TIDAC, (Reported) Mupirocin (Mupirocin Ointment), 1 KEVON TP TID Polyethylene Glycol 3350 (Miralax), 17 GM PO PRN DAILY PRN for CONSTIPATION Follow Up PCP IN 2 WEEKS YARED MOSELEY MD September 24, 2016 11:32
[2016-09-24] MEDS: AMOXICILLIN/K CLAV 500/125MG TABLET. PO SCH (13:27)
[2016-09-24] MEDS: APIXABAN 2.5 MG TABLET. PO SCH (13:28)
[2016-09-24] MEDS: CARVEDILOL 3.125 MG TABLET. PO SCH ×2 (13:30→15:00)
[2016-09-24] MEDS: CYPROHEPTADINE 4 MG TABLET. PO SCH ×2 (13:30→14:00)
[2016-09-24] MEDS: FLUCONAZOLE 100 MG TABLET. PO SCH (13:31)
[2016-09-24] MEDS: COLLAGENASE 250 UNIT/GM TOPICAL OINTMENT 30GM TUBE. TP SCH (13:38)
[2016-09-24 15:00] VITALS: BP 138/65
[2016-09-29 08:36] LABS: HEP B SURFACE ABDY Non Reactive
== END 2016-09-24 19:00 | DRG 853 ==
LOC: ER 18:57 → 4 NORTH 21:01
PROVIDERS: ADMIT Internal Medicine; ATTEND Internal Medicine
PROC: 5A1D60Z (ICD-10-PCS; 2016-09-09)
PROC: 03L80ZZ Occlusion of Left Brachial Artery, Open Approach (ICD-10-PCS; principal; 2016-09-09 13:15)
PROC: 0JDB0ZZ Extraction of Perineum Subcutaneous Tissue and Fascia, Open Approach (ICD-10-PCS; 2016-09-17)
PROC: 02H633Z Insertion of Infusion Device into Right Atrium, Percutaneous Approach (ICD-10-PCS; 2016-09-18)
PROC: B2141ZZ Fluoroscopy of Right Heart using Low Osmolar Contrast (ICD-10-PCS; 2016-09-18)
DX: A41.9 Sepsis, unspecified organism (principal); N18.6 End stage renal disease; G93.41 Metabolic encephalopathy; I13.2 Hypertensive heart and chronic kidney disease with heart failure and with stage 5 chronic kidney disease, or end stage renal disease; I50.32 Chronic diastolic (congestive) heart failure; T82.898A Other specified complication of vascular prosthetic devices, implants and grafts, initial encounter; N49.2 Inflammatory disorders of scrotum; E66.9 Obesity, unspecified; E78.5 Hyperlipidemia, unspecified; E11.22 Type 2 diabetes mellitus with diabetic chronic kidney disease; D63.1 Anemia in chronic kidney disease; E87.6 Hypokalemia; F41.9 Anxiety disorder, unspecified; I25.10 Atherosclerotic heart disease of native coronary artery without angina pectoris; Z66 Do not resuscitate; M19.90 Unspecified osteoarthritis, unspecified site; I48.2 Chronic atrial fibrillation; K21.9 Gastro-esophageal reflux disease without esophagitis; K57.30 Diverticulosis of large intestine without perforation or abscess without bleeding; Z51.5 Encounter for palliative care; G62.9 Polyneuropathy, unspecified; F03.90 Unspecified dementia, unspecified severity, without behavioral disturbance, psychotic disturbance, mood disturbance, and anxiety; C44.90 Unspecified malignant neoplasm of skin, unspecified; E83.59 Other disorders of calcium metabolism; K63.5 Polyp of colon; M10.9 Gout, unspecified; Z96.642 Presence of left artificial hip joint; N40.0 Benign prostatic hyperplasia without lower urinary tract symptoms; S81.801A Unspecified open wound, right lower leg, initial encounter; X58.XXXA Exposure to other specified factors, initial encounter; K80.20 Calculus of gallbladder without cholecystitis without obstruction; Z79.4 Long term (current) use of insulin; Z82.3 Family history of stroke; Z82.49 Family history of ischemic heart disease and other diseases of the circulatory system; Z83.3 Family history of diabetes mellitus; Z95.1 Presence of aortocoronary bypass graft; I25.2 Old myocardial infarction; Z99.2 Dependence on renal dialysis; Z68.31 Body mass index [BMI] 31.0-31.9, adult; Y93.89 Activity, other specified; Y92.89 Other specified places as the place of occurrence of the external cause; Y99.8 Other external cause status; Z98.49 Cataract extraction status, unspecified eye
CPT/HCPCS: 36415; 36569; 71010; 74000; 74176; 76937; 77001; 80048; 80053; 80069; 80202; 82310; 82607; 82962; 83540; 83550; 83605; 83735; 84100; 85007; 85018; 85027; 85651; 86141; 86301; 86704; 86706; 87040; 87071; 87075; 87205; 87340; 87341; 89050; 94250; 94640; 94760; 96361; 96374; 96375; C1751; C1892; J0690; J0775; J0780; J0881; J1100; J1170; J1200; J1630; J1815; J1940; J2060; J2185; J2250; J2270; J2405; J2440; J2543; J2704; J2765; J3010; J3370; J7030; J7040; J7042; P9046; 97530; 97535; 99285-25